=== PATIENT | male | born 1950 | race Hispanic/Latino ===

== ENCOUNTER 2017-02-25 15:19 | Inpatient (IN) | payer MEDICARE, OTHER ==
[2017-02-25 15:19] VITALS: BMI 28.3
[2017-02-25] MEDS ORDERED: Albuterol-Ipratrop 3 mg / 0.5 (3 ml) UD INH STA ×2 (16:00→16:59)
[2017-02-25] MEDS ORDERED: Albuterol-Ipratrop 3 mg / 0.5 (3 ml) UD ONE ×2 (16:06→17:10)
[2017-02-25 16:23] LABS: BASO % 0.2 % (0.0-2.0); EOS % 0.4 % (0.0-4.0); HEMATOCRIT 29.9 % (35.0-51.0); LYMPH # 0.8 K/uL (1.0-4.3); LYMPH % 11.8 % (20.0-40.0); MEAN CELL VOLUME 66.1 fL (80.0-94.0); MEAN CORPUSCULAR HEMOGLOBIN 18.3 pg (27.0-31.0); MEAN CORPUSCULAR HGB CONC 27.7 g/dL (33.0-37.0); MEAN PLATELET VOLUME 7.1 fL (7.2-11.7); MONO # 0.9 K/uL (0.0-0.8); MONO % 14.1 % (0.0-10.0); NRBC % 0.2 % (0.0-2.0); RED CELL DISTRIBUTION WIDTH 19.9 % (11.5-14.5); WHITE BLOOD COUNT 6.5 K/uL (4.8-10.8)
[2017-02-25 16:33] LABS: CHLORIDE 88 mmol/L (98-107)
[2017-02-25 16:36] LABS: ALB/GLOB RATIO 0.9 (1.0-2.1); ALKALINE PHOSPHATASE 155 U/L (38-126); AST/SGOT 83 U/L (17-59); BILIRUBIN,TOTAL 0.8 mg/dL (0.2-1.3); CARBON DIOXIDE 37 mmol/L (22-30); GFR AFRICAN-AMERICAN > 60; TOTAL PROTEIN 7.1 g/dL (6.3-8.3)
[2017-02-25 16:37] LABS: ALT/SGPT 42 U/L (21-72); BLOOD UREA NITROGEN 28 mg/dL (9-20); CALCIUM 7.5 mg/dl (8.6-10.4); GLUCOSE,RANDOM 97 mg/dL (75-110)
[2017-02-25 16:39] LABS: POTASSIUM 3.9 mmol/L (3.6-5.2); SODIUM 138 mmol/L (132-148)
--- NOTE | 2017-02-25 17:00 | RAD ---
HISTORY: SOB COMPARISON: Chest x-ray performed 06/30/12 TECHNIQUE: Chest, one view. FINDINGS: Examination limited by habitus, hypoinflation, and patient obliquity. Right-sided central venous catheter extends to the the cavoatrial junction. Left lower lobe atelectasis or pneumonia. Right hilar opacity of uncertain etiology. Small bilateral pleural effusions. No definite pneumothorax. Please note that chest x-ray has limited sensitivity for the detection of pulmonary masses. Median sternotomy wires. Cardiomegaly. Atherosclerotic calcifications of the aorta. Partially imaged right shoulder arthroplasty. Diffuse osseous demineralization. Degenerative changes of the spine. IMPRESSION: Left lower lobe atelectasis or pneumonia. Right hilar opacity of uncertain etiology. Small bilateral pleural effusions. Cardiomegaly.
--- NOTE | 2017-02-25 17:07 | C.PDOC ---
History Of Present Illness 66 y/o male sent from correction for evaluation of SOB and poor oxygen saturation. 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 Pt history of COPD. Denies fever, chills, chest pain, dizziness, headache or any other complaints. Time Seen by Provider: 02/25/17 15:48 Chief Complaint (Nursing): Shortness Of Breath History Per: Patient History/Exam Limitations: no limitations Onset/Duration Of Symptoms: Hrs Current Symptoms Are (Timing): Better Severity: Mild Associated Symptoms: denies: Fever, Chest Pain, Dizziness Recent travel outside of the [place]: No Additional History Per: Assisted Past Medical History Reviewed: Historical Data, Nursing Documentation, Vital Signs Vital Signs: Last Vital Signs Temp 97.7 F 02/25/17 17:56 Pulse 77 02/25/17 17:56 Resp 18 02/25/17 17:56 BP 120/35 L 02/25/17 15:38 Pulse Ox 100 02/25/17 17:56 - Medical History PMH: Arthritis, Asthma, Diabetes, Emphysema, HIV - [facility] Procedures NEBULIZER THERAPY (11/15/13) Family History: States: Unknown Family Hx - Social History Hx Tobacco Use: Yes Hx Alcohol Use: No (quit 18 yrs ago) Hx Substance Use: No Review Of Systems Except As Marked, All Systems Reviewed And Found Negative. Constitutional: Negative for: Fever, Chills Cardiovascular: Negative for: Chest Pain Respiratory: Positive for: Shortness of Breath Gastrointestinal: Negative for: Vomiting Neurological: Negative for: Headache, Dizziness Physical Exam - Physical Exam Appears: Non-toxic, No Acute Distress, Other (gustafson facies, central obesity and thin extremities consistent with renny syndrome) Skin: Warm, Dry, No Rash Head: Atraumatic, Normacephalic Neck: Normal, Normal ROM, Supple Chest: Symmetrical Cardiovascular: Rhythm Regular, No Murmur Respiratory: No Accessory Muscle Use, No Rales, Rhonchi (scattered), Wheezing ( scattered) Extremity: Normal ROM, Pedal Edema (trace), No Calf Tenderness Pulses: Left Dorsalis Pedis: Normal, Right Dorsalis Pedis: Normal Neurological/Psych: Oriented x3, Normal Speech, Normal Cognition ED Course And Treatment - Laboratory Results Result Diagrams: 02/25/17 16:18 02/25/17 16:18 Lab Interpretation: Abnormal (significant anemia c/w 2014 with microcytic, wide RDW, consider superimposed micro/macrocytic anemias) ECG: Interpreted By Me ECG Rhythm: Sinus Rhythm ECG Interpretation: Normal Rate From EC O2 Sat by Pulse Oximetry: 95 (room air) Pulse Ox Interpretation: Normal - Radiology CXR: Interpreted by Me CXR Interpretation: Yes: No Acute Disease, Heart Size (+ megaly, + mild CHF, no pna) Reevaluation Time: 17:05 Reassessment Condition: Improved (asymptomatic) - Physician Consult Information Outcome Of Conversation: 1700: d/w Dr. Horne, PMD- ok to tele obs Medical Decision Making Medical Decision Making: Cushingoid, prob related to extensive steroids used for COPD microcytic anemia, consider GI source- consult copd: steroids/nebs Disposition Doctor Will See Patient In The: Hospital Counseled Patient/Family Regarding: Studies Performed, Diagnosis - Disposition Disposition: HOSPITALIZED Disposition Time: 17:07 Condition: FAIR - Clinical Impression Clinical Impression: CHF (congestive heart failure), COPD (chronic obstructive pulmonary disease) - Scribe Statement The provider has reviewed the documentation as recorded by the Rose Fox Provider Attestation: All medical record entries made by the Rose were at my direction and personally dictated by me. I have reviewed the chart and agree that the record accurately reflects my personal performance of the history, physical exam, medical decision making, and the department course for this patient. I have also personally directed, reviewed, and agree with the discharge instructions and disposition.
[2017-02-25] MEDS: MethylPREDNISolone 40 mg Vial IVP SCH (22:21)
[2017-02-25] MEDS: Docusate-Senna 50 mg-8.6 mg Tab PO SCH (22:21)
[2017-02-26] MEDS: MethylPREDNISolone 40 mg Vial IVP SCH ×4 (04:20→21:55)
[2017-02-26] MEDS: Albuterol-Ipratrop 3 mg / 0.5 (3 ml) UD IH PRN ×3 (07:55→20:29)
[2017-02-26] MEDS: Multiple Vitamins Tab PO SCH (09:18)
[2017-02-26] MEDS: Emtricitabine-Tenofovir 200 mg-300 mg Tab PO SCH (09:19)
--- NOTE | 2017-02-26 10:28 | CP.PCM.PN ---
Subjective - Date & Time of Evaluation Date of Evaluation: 02/26/17 Time of Evaluation: 09:55 - Subjective Subjective: PGY3 Medicine Note - Dr. Stanley's service: Patient seen and examined at bedside this AM. Patient very sleepy and did not want to talk. He answered only a few questions. Patient reports coughing but will not specify how long. He says it is non-productive. Patient reports chest tightness and wheezing. Patient denies chest pain, abdominal pain, nausea , vomiting. Per prior charts: Patient had critical aortic stenosis on ECHO in 2013. Patient has right humerus fracture repair. Patient was not anemic in 2011. CXR from 2014 shows cardiomegaly. Patient has history of lung cancer treated with radiation into remission per Dr. Stanley. Possible Aortic Valve replacement as patient has sterneotomy sutures on CXR. Objective - Vital Signs/Intake and Output Vital Signs (last 24 hours): Temp Pulse Resp BP Pulse Ox 98 F 73 20 110/62 94 L 02/26/17 07:00 02/26/17 08:45 02/26/17 07:00 02/26/17 09:18 02/26/17 07:00 Intake and Output: 02/26/17 02/26/17 06:59 18:59 Intake Total 120 Balance 120 - Medications Medications: Current Medications Acetaminophen (Tylenol 325mg Tab) 650 mg PO Q4H PRN PRN Reason: Fever >100.4 F Albuterol/Ipratropium (Duoneb 3 Mg/0.5 Mg (3 Ml) Ud) 3 ml IH RQ4 PRN PRN Reason: Wheezing Last Admin: 02/26/17 07:55 Dose: 3 ml Emtricitabine/Tenofovir (Truvada 200 Mg-300 Mg) 1 tab PO DAILY [facility] Last Admin: 02/26/17 09:19 Dose: 1 tab Famotidine (Pepcid) 20 mg PO DAILY [facility] Last Admin: 02/26/17 09:18 Dose: 20 mg Furosemide (Lasix) 20 mg PO DAILY [facility] Last Admin: 02/26/17 09:18 Dose: 20 mg Moxifloxacin HCl (Avelox Iv 400mg/250ml Ns) 400 mg in 250 mls @ 167 mls/hr IVPB Q24H [facility] Methylprednisolone (Solu-Medrol) 40 mg IVP Q6H [facility] Last Admin: 02/26/17 09:21 Dose: 40 mg Metoprolol Tartrate (Lopressor) 25 mg PO BID REPLACED BY [facility] Montelukast Sodium (Singulair) 10 mg PO DAILY REPLACED BY [facility] Last Admin: 02/26/17 09:18 Dose: 10 mg Multivitamins (Hexavitamin) 1 tab PO DAILY [facility]PLAC[facility] BY [facility] Last Admin: 02/26/17 09:18 Dose: 1 tab Ondansetron HCl (Zofran Tab) 4 mg PO Q4H PRN PRN Reason: Nausea/Vomiting Raltegravir (Isentress) 400 mg PO BID REPLACED BY [facility] Last Admin: 02/26/17 09:19 Dose: 400 mg Rosuvastatin Calcium (Crestor) 20 mg PO [facility] Last Admin: 02/25/17 22:20 Dose: 20 mg Senna/Docusate Sodium (Senokot S 50 Mg-8.6 Mg) 1 tab PO [facility] Last Admin: 02/25/17 22:21 Dose: 1 tab - Constitutional Appears: Non-toxic, No Acute Distress, Chronically Ill - Head Exam Head Exam: NORMAL INSPECTION - Eye Exam Eye Exam: EOMI - ENT Exam ENT Exam: Mucous Membranes Moist - Respiratory Exam Respiratory Exam: Rales, Rhonchi. absent: Accessory Muscle Use, Decreased Breath Sounds, Respiratory Distress - Cardiovascular Exam Cardiovascular Exam: REGULAR RHYTHM, +S1, +S2. absent: Gallop, Rubs, Murmur - GI/Abdominal Exam GI & Abdominal Exam: Soft, Normal Bowel Sounds. absent: Tenderness - Extremities Exam Extremities Exam: Pedal Edema (1+ pitting) - Neurological Exam Neurological Exam: absent: Alert, Awake - Skin Skin Exam: Normal Color, Warm Assessment and Plan - Assessment and Plan (Free Text) Assessment: Dyspnea Secondary to COPD v. CHF v. Lung CA v. Pneumonia CXR 02/25/17 -> left lower lobe atelectasis or pneumonia; right hilar opacity; small b/l pleural effusions; cardiomegaly BNP 9850 Afebrile, WBC 6.5 F/U CT scan to assess pneumonia and if the opacity is a mass F/U ECHO Avelox 400mg IVPB daily See COPD section for COPD meds Microcytic Anemia Hgb 8.3 (from 12.6 in 2013), MCV 66.1 Secondary to chronic disease v. iron deficiency Transfuse 1 unit pRBCs F/U CBC in AM F/U iron, TIBC, %iron sat, ferritin, retic count, folate, B12 F/U stool occult blood [facility] BiPAP ordered per Dr. Stanley History of COPD with possible exacerbation Duoneb 3ml INH RQ4 PRN wheezing Solu-Medrol 40mg IVP Q6H Singulair 10mg PO daily History of HIV Truvada 1 tab PO daily (home med) Isentress 400mg PO BID (home med) F/U CD4 count History of critical aortic stenosis F/U ECHO Lopressor 25mg PO BID Crestor 20mg PO HS Prophylaxis Sennakot 1 tab PO HS Pepcid 20mg PO daily Lovenox 40mg SC daily All management per Dr. Stanley
[2017-02-26] MEDS: Moxifloxacin IV 400mg/250ml NS 400 MG/250 ML BAG IVPB SCH (14:28)
--- NOTE | 2017-02-26 14:56 | CT ---
CT chest without IV contrast Indication: Possible lung cancer recurrence, possible pneumonia Technique: Contiguous axial images were obtained through the chest without intravenous contrast enhancement. Sagittal and coronal reconstructions were generated and reviewed. This CT exam was performed using 1 or more of the falling dose reduction techniques: Automated exposure control, adjustment of the MAA and/or kV according to patient size, and/or use of iterative reconstruction technique. Radiation dose (DLP): 798.24 MGy-cm. Comparison: Chest x-ray performed 02/25/17 Findings: Right-sided central venous catheter terminates at the proximal right atrium. Visualized portions of the inferior thyroid gland appear unremarkable. The unenhanced mediastinal and hilar vascular structures appear grossly unremarkable. Median sternotomy wires. Heart size appears top normal. Dense coronary artery calcifications. Dense valvular calcifications. Moderate right-sided and small left-sided pleural effusion and associated consolidations. Lingular consolidation. Limited visualization of the noncontrast upper abdomen demonstrates cholecystectomy. Postsurgical gastric changes evident. Osseous demineralization. Degenerative changes. Kyphosis. Right shoulder arthroplasty with resultant streak artifact. Loss of height of multiple vertebral body levels, most severely at T6 consistent with compression fracture deformity, presumably chronic. Impression: Right-sided central venous catheter. Median sternotomy wires. Heart size appears top normal. Dense coronary artery calcifications. Dense valvular calcifications. Moderate right-sided and small left-sided pleural effusion and associated consolidations. Lingular consolidation. Underlying malignancy cannot be excluded. Recommend clinical correlation and close interval follow-up to complete resolution. Additional findings as above.
[2017-02-26 17:21] LABS: IRON 20 ug/dL (49-181)
[2017-02-26 17:46] LABS: HEMATOCRIT 26.8 % (35.0-51.0); MEAN CELL VOLUME 66.5 fL (80.0-94.0); MEAN CORPUSCULAR HEMOGLOBIN 18.2 pg (27.0-31.0); MEAN CORPUSCULAR HGB CONC 27.4 g/dL (33.0-37.0); MEAN PLATELET VOLUME 7.2 fL (7.2-11.7); RED CELL DISTRIBUTION WIDTH 19.1 % (11.5-14.5); WHITE BLOOD COUNT 9.7 K/uL (4.8-10.8)
[2017-02-26] MEDS: Docusate-Senna 50 mg-8.6 mg Tab PO SCH (21:51)
[2017-02-27] MEDS: Albuterol-Ipratrop 3 mg / 0.5 (3 ml) UD IH PRN (07:57)
--- NOTE | 2017-02-27 09:02 | CARD ---
APPROVED REPORT EKG Measurement Heart [id number] <Conclusion> Normal sinus rhythm Low voltage QRS Cannot rule out Anterior infarct, age undetermined T wave abnormality, consider lateral ischemia Abnormal ECG
--- NOTE | 2017-02-27 10:02 | CP.PCM.PN ---
Subjective - Date & Time of Evaluation Date of Evaluation: 02/27/17 Time of Evaluation: 10:02 - Subjective Subjective: Medicine Note- Dr Stanley's service Patient seen and examined. Patient states that he feels much better today and denies chest pain or back pain. Patient was using BIPAP machine overnight and states that he was able to sleep well last night. Patient would like to go back to his facility. He received 1u pRBCs overnight with no complications. Denies fever, chills, nausea, vomiting, shortness of breath, and pain. Objective - Vital Signs/Intake and Output Vital Signs (last 24 hours): Temp Pulse Resp BP Pulse Ox 98.0 F 71 20 108/63 97 02/27/17 08:00 02/27/17 08:17 02/27/17 08:00 02/27/17 08:00 02/27/17 08:00 Intake and Output: 02/27/17 02/27/17 06:59 18:59 Intake Total 1310 Output Total 400 Balance 910 - Medications Medications: Current Medications Acetaminophen (Tylenol 325mg Tab) 650 mg PO Q4H PRN PRN Reason: Fever >100.4 F Albuterol/Ipratropium (Duoneb 3 Mg/0.5 Mg (3 Ml) Ud) 3 ml IH RQ4 PRN PRN Reason: Wheezing Last Admin: 02/27/17 07:57 Dose: 3 ml Emtricitabine/Tenofovir (Truvada 200 Mg-300 Mg) 1 tab PO DAILY [facility] Last Admin: 02/26/17 09:19 Dose: 1 tab Enoxaparin Sodium (Lovenox) 40 mg SC DAILY [facility] Famotidine (Pepcid) 20 mg PO DAILY [facility] Last Admin: 02/26/17 09:18 Dose: 20 mg Ferrous Sulfate (Feosol) 325 mg PO DAILY [facility] Furosemide (Lasix) 20 mg PO DAILY [facility] Last Admin: 02/26/17 09:18 Dose: 20 mg Moxifloxacin HCl (Avelox Iv 400mg/250ml Ns) 400 mg in 250 mls @ 167 mls/hr IVPB Q24H [facility] Last Admin: 02/26/17 14:28 Dose: 167 mls/hr Methylprednisolone (Solu-Medrol) 40 mg IVP Q6H [facility] Last Admin: 02/26/17 21:55 Dose: 40 mg Metoprolol Tartrate (Lopressor) 25 mg PO BID [facility] Last Admin: 02/26/17 17:53 Dose: 25 mg Montelukast Sodium (Singulair) 10 mg PO DAILY [facility] Last Admin: 02/26/17 09:18 Dose: 10 mg Multivitamins (Hexavitamin) 1 tab PO DAILY [facility] Last Admin: 02/26/17 09:18 Dose: 1 tab Ondansetron HCl (Zofran Tab) 4 mg PO Q4H PRN PRN Reason: Nausea/Vomiting Raltegravir (Isentress) 400 mg PO BID [facility] Last Admin: 02/26/17 17:52 Dose: 400 mg Rosuvastatin Calcium (Crestor) 20 mg PO HS [facility] Last Admin: 02/26/17 21:52 Dose: 20 mg Senna/Docusate Sodium (Senokot S 50 Mg-8.6 Mg) 1 tab PO HS [facility] Last Admin: 02/26/17 21:51 Dose: 1 tab - Labs Labs: 02/26/17 16:50 - Additional Findings Additional findings: - Constitutional Appears: Non-toxic, No Acute Distress, Chronically Ill - Head Exam Head Exam: NORMAL INSPECTION - Eye Exam Eye Exam: EOMI - ENT Exam ENT Exam: Mucous Membranes Moist - Respiratory Exam Respiratory Exam: Rales, Rhonchi. absent: Accessory Muscle Use, Decreased Breath Sounds, Respiratory Distress - Cardiovascular Exam Cardiovascular Exam: REGULAR RHYTHM, +S1, +S2. absent: Gallop, Rubs, Murmur - GI/Abdominal Exam GI & Abdominal Exam: Soft, Normal Bowel Sounds. absent: Tenderness - Extremities Exam Extremities Exam: Pedal Edema (1+ pitting) - Neurological Exam Neurological Exam: absent: Alert, Awake - Skin Skin Exam: Normal Color, Warm Assessment and Plan - Assessment and Plan (Free Text) Assessment: Dyspnea Improved Secondary to COPD v. CHF v. Lung CA v. Pneumonia CXR 02/25/17 -> left lower lobe atelectasis or pneumonia; right hilar opacity; small b/l pleural effusions; cardiomegaly BNP 9850 Afebrile, no leukocytosis CT Chest- Moderate right-sided and small left-sided pleural effusion and associated consolidations. Lingular consolidation. Underlying malignancy cannot be excluded. F/U ECHO Avelox 400mg IVPB daily Lasix 20mg PO daily See COPD section for COPD meds Microcytic Anemia Hgb 7.3 yesterday, MCV 66.1 Secondary to chronic disease v. iron deficiency s/p transfusion of 1 unit pRBCs on 02/26 Hgb 8.4 this morning Iron 20 (low), TIBC 397, % sat 5 stool occult blood negative Start Feosol 325mg PO daily Obstructive Sleep Apnea BiPAP ordered for night time use History of COPD with possible exacerbation Duoneb 3ml INH RQ4 PRN wheezing Solu-Medrol 40mg IVP Q6H Singulair 10mg PO daily History of HIV Truvada 1 tab PO daily (home med) Isentress 400mg PO BID (home med) F/U CD4 count History of critical aortic stenosis F/U ECHO Lopressor 25mg PO BID Crestor 20mg PO HS Prophylaxis Sennakot 1 tab PO HS Pepcid 20mg PO daily Lovenox 40mg SC daily All management per Dr. Stanley
[2017-02-27] MEDS: Multiple Vitamins Tab PO SCH (10:21)
[2017-02-27] MEDS: MethylPREDNISolone 40 mg Vial IVP SCH ×3 (10:22→21:30)
[2017-02-27] MEDS: Enoxaparin 40 mg Syringe SC SCH (10:23)
[2017-02-27] MEDS: Emtricitabine-Tenofovir 200 mg-300 mg Tab PO SCH (10:24)
[2017-02-27 11:21] LABS: LYMPH # 0.1 K/uL (1.0-4.3); LYMPH % 1.5 % (20.0-40.0); MONO # 0.2 K/uL (0.0-0.8); NRBC % 0.5 % (0.0-2.0); RETIC% 1.6 % (0.5-1.5); WHITE BLOOD COUNT 7.8 K/uL (4.8-10.8)
[2017-02-27 11:29] LABS: CHLORIDE 85 mmol/L (98-107)
[2017-02-27 11:30] LABS: POTASSIUM 3.6 mmol/L (3.6-5.2); SODIUM 137 mmol/L (132-148)
[2017-02-27 11:32] LABS: GFR AFRICAN-AMERICAN > 60
[2017-02-27 11:33] LABS: ALB/GLOB RATIO 0.9 (1.0-2.1); ALKALINE PHOSPHATASE 135 U/L (38-126); ALT/SGPT 34 U/L (21-72); AST/SGOT 49 U/L (17-59); BILIRUBIN,TOTAL 0.8 mg/dL (0.2-1.3); BLOOD UREA NITROGEN 30 mg/dL (9-20); CALCIUM 7.3 mg/dl (8.6-10.4); GLUCOSE,RANDOM 244 mg/dL (75-110); TOTAL PROTEIN 6.3 g/dL (6.3-8.3)
[2017-02-27 12:00] LABS: BASO % 0.1 % (0.0-2.0); HEMATOCRIT 29.7 % (35.0-51.0); MEAN CORPUSCULAR HEMOGLOBIN 19.3 pg (27.0-31.0); MEAN CORPUSCULAR HGB CONC 28.4 g/dL (33.0-37.0); MEAN PLATELET VOLUME 8.5 fL (7.2-11.7); MONO % 2.4 % (0.0-10.0); PLATELET COUNT 234 K/uL (130-400)
[2017-02-27 12:16] LABS: CARBON DIOXIDE 42 mmol/L (22-30)
[2017-02-27] MEDS: Moxifloxacin IV 400mg/250ml NS 400 MG/250 ML BAG IVPB SCH (12:20)
[2017-02-27 12:26] LABS: NEUTROPHIL 95 % (50-75); TOTAL CELLS COUNTED 100
[2017-02-27 14:38] LABS: ABG ALLEN TEST PO; CARBOXYHEMOGLOBIN 2.3 % (0.5-1.5); DRAW SITE RRA; HHB 13.8 % (0.0-5.0); METHEMOGLOBIN 0.9 % (0.0-3.0)
[2017-02-27] MEDS: Docusate-Senna 50 mg-8.6 mg Tab PO SCH (21:31)
[2017-02-28] MEDS: MethylPREDNISolone 40 mg Vial IVP SCH ×4 (03:55→21:45)
[2017-02-28] MEDS: Emtricitabine-Tenofovir 200 mg-300 mg Tab PO SCH (10:40)
[2017-02-28] MEDS: Multiple Vitamins Tab PO SCH (10:41)
[2017-02-28] MEDS: Enoxaparin 40 mg Syringe SC SCH (10:41)
--- NOTE | 2017-02-28 11:17 | CP.PCM.PN ---
Subjective - Date & Time of Evaluation Date of Evaluation: 02/28/17 Time of Evaluation: 11:17 - Subjective Subjective: Medicine Note- Dr Stanley's service Patient seen and examined with attending Dr Stanley. Patient states that he feels fine today and that his breathing has improved. Patient is tolerating his diet well. The patient was cleaned yesterday and no bed bugs were found. May remove patient from isolation precautions at this time. Patient denies fever, chills, nausea, vomiting, diarrhea, abdominal pain, leg pain, chest pain , and palpitations. Objective - Vital Signs/Intake and Output Vital Signs (last 24 hours): Temp Pulse Resp BP Pulse Ox 97.6 F 64 20 99/63 L 100 02/28/17 07:55 02/28/17 10:38 02/28/17 07:55 02/28/17 10:47 02/28/17 07:55 Intake and Output: 02/28/17 02/28/17 06:59 18:59 Intake Total 820 Output Total 950 Balance -130 - Medications Medications: Current Medications Acetaminophen (Tylenol 325mg Tab) 650 mg PO Q4H PRN PRN Reason: Fever >100.4 F Albuterol/Ipratropium (Duoneb 3 Mg/0.5 Mg (3 Ml) Ud) 3 ml IH RQ4 PRN PRN Reason: Wheezing Last Admin: 02/27/17 07:57 Dose: 3 ml Emtricitabine/Tenofovir (Truvada 200 Mg-300 Mg) 1 tab PO DAILY [facility] Last Admin: 02/28/17 10:40 Dose: 1 tab Enoxaparin Sodium (Lovenox) 40 mg SC DAILY [facility] Last Admin: 02/28/17 10:41 Dose: 40 mg Famotidine (Pepcid) 20 mg PO DAILY [facility] Last Admin: 02/28/17 10:41 Dose: 20 mg Ferrous Sulfate (Feosol) 325 mg PO DAILY [facility] Last Admin: 02/28/17 10:41 Dose: 325 mg Furosemide (Lasix) 20 mg PO DAILY [facility] Last Admin: 02/28/17 10:47 Dose: Not Given Moxifloxacin HCl (Avelox Iv 400mg/250ml Ns) 400 mg in 250 mls @ 167 mls/hr IVPB Q24H [facility] Last Admin: 02/27/17 12:20 Dose: 167 mls/hr Methylprednisolone (Solu-Medrol) 40 mg IVP Q6H [facility] Last Admin: 02/28/17 10:42 Dose: 40 mg Metoprolol Tartrate (Lopressor) 25 mg PO BID [facility] Last Admin: 02/28/17 10:47 Dose: Not Given Montelukast Sodium (Singulair) 10 mg PO DAILY [facility] Last Admin: 02/28/17 10:46 Dose: 10 mg Multivitamins (Hexavitamin) 1 tab PO DAILY [facility] Last Admin: 02/28/17 10:41 Dose: 1 tab Ondansetron HCl (Zofran Tab) 4 mg PO Q4H PRN PRN Reason: Nausea/Vomiting Raltegravir (Isentress) 400 mg PO BID [facility] Last Admin: 02/28/17 10:42 Dose: 400 mg Rosuvastatin Calcium (Crestor) 20 mg PO HS [facility] Last Admin: 02/27/17 21:31 Dose: 20 mg Senna/Docusate Sodium (Senokot S 50 Mg-8.6 Mg) 1 tab PO [facility] Last Admin: 02/27/17 21:31 Dose: 1 tab - Additional Findings Additional findings: - Additional Findings Additional findings: - Constitutional Appears: Non-toxic, No Acute Distress, Chronically Ill - Head Exam Head Exam: NORMAL INSPECTION - Eye Exam Eye Exam: EOMI - ENT Exam ENT Exam: Mucous Membranes Moist - Respiratory Exam Respiratory Exam: Rales, Rhonchi. absent: Accessory Muscle Use, Decreased Breath Sounds, Respiratory Distress - Cardiovascular Exam Cardiovascular Exam: REGULAR RHYTHM, +S1, +S2. absent: Gallop, Rubs, Murmur - GI/Abdominal Exam GI & Abdominal Exam: Soft, Normal Bowel Sounds. absent: Tenderness - Extremities Exam Extremities Exam: Pedal Edema (1+ pitting) - Neurological Exam Neurological Exam: absent: Alert, Awake - Skin Skin Exam: Normal Color, Warm Assessment and Plan - Assessment and Plan (Free Text) Assessment: Dyspnea Improved Secondary to COPD v. CHF v. Lung CA v. Pneumonia ABG pH 7.4/ CO2 72/ O2 42/ HCO3 38.5 (Patient qualifies for home O2 with BIPAP) CXR 02/25/17 -> left lower lobe atelectasis or pneumonia; right hilar opacity; small b/l pleural effusions; cardiomegaly BNP 9850 Afebrile, no leukocytosis CT Chest- Moderate right-sided and small left-sided pleural effusion and associated consolidations. Lingular consolidation. Underlying malignancy cannot be excluded. F/U ECHO Avelox 400mg IVPB daily Lasix 20mg PO daily See COPD section for COPD meds Microcytic Anemia Secondary to chronic disease v. iron deficiency s/p transfusion of 1 unit pRBCs on 02/26 Hgb stable Iron 20 (low), TIBC 397, % sat 5 stool occult blood negative Start Feosol 325mg PO daily Obstructive Sleep Apnea BiPAP ordered for night time use- [facility] with [facility] History of COPD Well controlled with O2 nasal cannula and BIPAP Duoneb 3ml INH RQ4 PRN wheezing Solu-Medrol 40mg IVP Q6H Singulair 10mg PO daily History of HIV Truvada 1 tab PO daily (home med) Isentress 400mg PO BID (home med) F/U CD4 count History of critical aortic stenosis F/U ECHO Lopressor 25mg PO BID Crestor 20mg PO HS Prophylaxis Sennakot 1 tab PO HS Pepcid 20mg PO daily Lovenox 40mg SC daily All management per Dr. Stanley
[2017-02-28 11:51] LABS: BASO % 0.1 % (0.0-2.0); LYMPH # 0.2 K/uL (1.0-4.3); LYMPH % 2.1 % (20.0-40.0); MEAN CELL VOLUME 68.7 fL (80.0-94.0); MEAN CORPUSCULAR HEMOGLOBIN 19.3 pg (27.0-31.0); MEAN PLATELET VOLUME 7.3 fL (7.2-11.7); MONO # 0.2 K/uL (0.0-0.8); MONO % 2.9 % (0.0-10.0); NRBC % 0.6 % (0.0-2.0); PLATELET COUNT 235 K/uL (130-400); RED CELL DISTRIBUTION WIDTH 21.3 % (11.5-14.5); WHITE BLOOD COUNT 8.5 K/uL (4.8-10.8)
[2017-02-28 12:18] LABS: NEUTROPHIL 94 % (50-75); NUCLEATED RED BLOOD CELL 1 % (0-0); TOTAL CELLS COUNTED 100
[2017-02-28 12:19] LABS: CHLORIDE 84 mmol/L (98-107)
[2017-02-28 12:20] LABS: POTASSIUM 3.5 mmol/L (3.6-5.2); SODIUM 137 mmol/L (132-148)
[2017-02-28] MEDS: Moxifloxacin IV 400mg/250ml NS 400 MG/250 ML BAG IVPB SCH (12:20)
[2017-02-28 12:22] LABS: ALB/GLOB RATIO 0.9 (1.0-2.1); ALKALINE PHOSPHATASE 126 U/L (38-126); ALT/SGPT 38 U/L (21-72); AST/SGOT 49 U/L (17-59); BILIRUBIN,TOTAL 0.7 mg/dL (0.2-1.3); BLOOD UREA NITROGEN 37 mg/dL (9-20); GFR AFRICAN-AMERICAN > 60; GLUCOSE,RANDOM 237 mg/dL (75-110); TOTAL PROTEIN 6.2 g/dL (6.3-8.3)
[2017-02-28 12:23] LABS: CALCIUM 7.3 mg/dl (8.6-10.4)
[2017-02-28 12:38] LABS: CARBON DIOXIDE 43 mmol/L (22-30)
--- NOTE | 2017-02-28 15:23 | PCM.PSYCH ---
Initial Psychiatric Evaluation - Initial Psychiatric Evaluation Type of Admission: Voluntary Legal Status: Capacity Chief Complaint (in patient's own words): Whats not wrong with me Consult request from Dr. Stanley. History of Present Illness and Precipitating Events: Patient is seen and evaluated at bedside with medical student present. Patient is a poor historian. This patient is a 66 year old male, , on disability for 20 years ( previously worked in [employer]), currently lives alone in [place] ( per ER note, pt lives in [facility]). Patient is admitted to medicine service for COPD exacerbation. Patient states that his mood is 50/50 and that he keeps it that way. Reports that a few years ago while at work, he said Id rather be than keep working here. Patient states that the police were called and he was taken to the hospital. Patient left because he didnt think anything was wrong with him and they were giving him medications and couldnt tell him what they were for. Patient reports he told the psychiatrist at that hospital, go look at any psychology book and it says 9 out of 10 people are depressed. Patient reports difficulty sleeping and became visibly agitated as he recounted interruptions by nursing that led to his limited sleep. When asked about paranoia, patient responded, I dont care if people talk about me and continued on a tangent. Patient reports hearing voices and seeing shadows on first day of this admission, none since. Patient requests help with his sleep and mood, only if theyll explain what theyre giving me. Past MedHx: COPD, HTN, DM, Anemia, (HIV - per pt chart) Past PsycHx: They said I was depressed years ago. Denies receiving treatment or medication. Substance Use: Cannabis loads of it, Crack (route: snort), Heroin (route snort) Rehab 2x In [facility] denies; states I dont need help, there are people who need help and can t get it. Alcohol: 2-3 quarts of Hilario Greene daily (quit drinking 10 years ago) Tobacco: 6 ppd (quit) Patient is an obese male, unkempt, and has visible bruising and tattoos on his arms. Patients speech is soft , often garbled and circumstantial. Patient had difficulty maintaining focus and questions would need to be repeated. Current Medications: Active Medications Generic Name Dose Route Start Last Admin Trade Name Freq PRN Reason Stop Dose Admin Acetaminophen 650 mg 02/25/17 18:38 Tylenol 325mg Tab PO Q4H PRN Fever >100.4 F Albuterol/Ipratropium 3 ml 02/25/17 18:38 02/27/17 07:57 Duoneb 3 Mg/0.5 Mg (3 Ml) Ud IH 3 ml RQ4 PRN Administration Wheezing Emtricitabine/Tenofovir 1 tab 02/26/17 10:00 02/28/17 10:40 Truvada 200 Mg-300 Mg PO 1 tab DAILY [facility] Administration Enoxaparin Sodium 40 mg 02/26/17 10:30 02/28/17 10:41 Lovenox SC 40 mg DAILY [facility] Administration Famotidine 20 mg 02/26/17 10:00 02/28/17 10:41 Pepcid PO 20 mg DAILY [facility] Administration Ferrous Sulfate 325 mg 02/27/17 10:00 02/28/17 10:41 Feosol PO 325 mg DAILY [facility] Administration Furosemide 20 mg 02/26/17 10:00 02/28/17 10:47 Lasix PO Not Given DAILY [facility] Moxifloxacin HCl 400 mg in 250 mls @ 167 mls/hr 02/26/17 12:00 02/28/17 12:20 Avelox Iv 400mg/250ml Ns IVPB 167 mls/hr Q24H [facility] Administration Methylprednisolone 40 mg 02/25/17 22:00 02/28/17 10:42 Solu-Medrol IVP 40 mg Q6H [facility] Administration Metoprolol Tartrate 25 mg 02/26/17 10:00 02/28/17 10:47 Lopressor PO Not Given BID [facility] Montelukast Sodium 10 mg 02/26/17 10:00 02/28/17 10:46 Singulair PO 10 mg DAILY [facility] Administration Multivitamins 1 tab 02/26/17 10:00 02/28/17 10:41 Hexavitamin PO 1 tab DAILY [facility] Administration Ondansetron HCl 4 mg 02/25/17 19:15 Zofran Tab PO Q4H PRN Nausea/Vomiting Raltegravir 400 mg 02/26/17 10:00 02/28/17 10:42 Isentress PO 400 mg BID [facility] Administration Rosuvastatin Calcium 20 mg 02/25/17 22:15 02/27/17 21:31 Crestor PO 20 mg HS [facility] Administration Senna/Docusate Sodium 1 tab 02/25/17 22:00 02/27/17 21:31 Senokot S 50 Mg-8.6 Mg PO 1 tab HS [facility] Administration Past Psychiatric History - Past Psychiatric History Previous Treatment History: None Pertinent Medical Hx (Current Medical&Sleep Prob, Allergies): Allergies Allergy/AdvReac Type Severity Reaction Status Date / Time No Known Allergies Allergy Verified 11/15/13 21:43 Acetaminophen [Tylenol 325mg tab] 650 mg PO Q4H PRN 02/25/17 Albuterol/Ipratropium [Duoneb 3 MG/3 Ml-0.5 MG/3 Ml 3 Ml] 3 ml IH Q4H PRN Budesonide/Formoterol Fumarate [Symbicort] 2 puff IH BID 02/25/17 Emtricitabine/Tenofovir (Tdf) [Truvada 200 mg-300 mg Tablet] 1 each PO DAILY Famotidine 20 mg PO DAILY 02/25/17 Furosemide [Lasix] 20 mg PO DAILY 02/25/17 Metoprolol Tartrate 25 mg PO BID 02/25/17 Montelukast Sodium [Singulair] 10 mg PO DAILY 02/25/17 Multivitamin [Multi-Day Vitamins] 1 each PO DAILY 02/25/17 Ondansetron [Zofran] 4 mg PO PRN PRN 02/25/17 Raltegravir Potassium [Isentress] 400 mg PO BID 02/25/17 Rosuvastatin Calcium 20 mg PO DAILY 02/25/17 Sennosides/Docusate Sodium [Senna-S Tablet] 1 each PO HS 02/25/17 Review of Systems - Review of Systems All systems: reviewed and no additional remarkable complaints except - Psychiatric Psychiatric: Anxiety, Auditory Hallucinations, Irritability, Paranoia, Visual Hallucinations Mental Status Examination - Personal Presentation Personal Presentation: Looks stated age - Affect Affect: Broad, Other (labile) - Motor Activity Motor Activity: Psychomotor Agitation - Reliability in Providing Information Reliability in Providing Information: Poor, due to alteration in thoughts, Poor , due to altered mood - Speech Speech: Disorganized - Mood Mood: Depressed, Anxious - Formal Thought Process Formal Thought Process: Hallucinations, Delusions, Paranoia, Loosening of associations, Circumstantial - Hallucinations/Delusions Hallucinations: Visual, Auditory Delusions: Persecution - Obsessions/Compulsions Obsessions: No Compulsions: No - Cognitive Functions Orientation: Person, Place, Situation, Time Sensorium: Alert Attention/Concentration: Attentive Abstract Thinking: [place] Estimate of Intelligence: Below average Judgement: Imparied, as evidence by: Poor judgement, Imparied, as evidence by: Lack of insight into illness - Risk Risk: Diminished functioning - Limitations Limitations: Living alone DSM 5 DX - DSM 5 DSM 5 Diagnosis: Cocaine use disorder severe Cannabis use disorder severe Major depressive disorder with psychosis Schizoaffective disorder depressive type - Recommended/Plan of Treatment Treatment Recommendations and Plan of Treatment: Cocaine use disorder severe Cannabis use disorder severe Major depressive disorder with psychosis Schizoaffective disorder depressive type CBT Psychoeducation Supportive therapy, group therapy, individual therapy Prolixin 5 mg by mouth twice a day Cogentin 1 mg by mouth twice a day Zoloft 50 mg daily Trazodone 50 mg by mouth daily at bedtime - Smoking Cessation Smoking Cessation Initiated: No
[2017-02-28] MEDS: Docusate-Senna 50 mg-8.6 mg Tab PO SCH (21:43)
[2017-03-01] MEDS: MethylPREDNISolone 40 mg Vial IVP SCH ×4 (05:44→21:57)
[2017-03-01 08:31] LABS: % CD3 (MATURE T CELL) 55 Percent (57-85)
--- NOTE | 2017-03-01 09:06 | CP.PCM.PN ---
Subjective - Date & Time of Evaluation Date of Evaluation: 03/01/17 Time of Evaluation: 08:00 - Subjective Subjective: Medical Note- Dr Stanley's service Patient seen and examined. Patient has no acute complaints. He has been removed off isolation precautions. Patient is pending ECHO at this time. If ECHO resulted patient may be discharged today. Denies fever, chills, nausea, vomiting, chest pain, and headache. Objective - Vital Signs/Intake and Output Vital Signs (last 24 hours): Temp Pulse Resp BP Pulse Ox 98.0 F 72 20 132/68 98 02/28/17 23:25 03/01/17 08:37 02/28/17 23:25 02/28/17 23:25 02/28/17 23:25 Intake and Output: 03/01/17 03/01/17 06:59 18:59 Intake Total 730 Output Total 400 Balance 330 - Medications Medications: Current Medications Acetaminophen (Tylenol 325mg Tab) 650 mg PO Q4H PRN PRN Reason: Fever >100.4 F Albuterol/Ipratropium (Duoneb 3 Mg/0.5 Mg (3 Ml) Ud) 3 ml IH RQ4 PRN PRN Reason: Wheezing Last Admin: 02/27/17 07:57 Dose: 3 ml Emtricitabine/Tenofovir (Truvada 200 Mg-300 Mg) 1 tab PO DAILY [facility] Last Admin: 02/28/17 10:40 Dose: 1 tab Enoxaparin Sodium (Lovenox) 40 mg SC DAILY [facility] Last Admin: 02/28/17 10:41 Dose: 40 mg Famotidine (Pepcid) 20 mg PO DAILY [facility] Last Admin: 02/28/17 10:41 Dose: 20 mg Ferrous Sulfate (Feosol) 325 mg PO DAILY [facility] Last Admin: 02/28/17 10:41 Dose: 325 mg Furosemide (Lasix) 20 mg PO DAILY [facility] Last Admin: 02/28/17 10:47 Dose: Not Given Moxifloxacin HCl (Avelox Iv 400mg/250ml Ns) 400 mg in 250 mls @ 167 mls/hr IVPB Q24H [facility] Last Admin: 02/28/17 12:20 Dose: 167 mls/hr Methylprednisolone (Solu-Medrol) 40 mg IVP Q6H [facility] Last Admin: 03/01/17 05:44 Dose: 40 mg Metoprolol Tartrate (Lopressor) 25 mg PO BID [facility] Last Admin: 02/28/17 17:53 Dose: Not Given Montelukast Sodium (Singulair) 10 mg PO DAILY [facility] Last Admin: 02/28/17 10:46 Dose: 10 mg Multivitamins (Hexavitamin) 1 tab PO DAILY [facility] Last Admin: 02/28/17 10:41 Dose: 1 tab Ondansetron HCl (Zofran Tab) 4 mg PO Q4H PRN PRN Reason: Nausea/Vomiting Raltegravir (Isentress) 400 mg PO BID [facility] Last Admin: 02/28/17 17:52 Dose: 400 mg Rosuvastatin Calcium (Crestor) 20 mg PO HS [facility] Last Admin: 02/28/17 21:43 Dose: 20 mg Senna/Docusate Sodium (Senokot S 50 Mg-8.6 Mg) 1 tab PO HS [facility] Last Admin: 02/28/17 21:43 Dose: 1 tab - Labs Labs: 02/28/17 11:44 02/28/17 11:44 - Additional Findings Additional findings: - Additional Findings Additional findings: - Constitutional Appears: Non-toxic, No Acute Distress, Chronically Ill - Head Exam Head Exam: NORMAL INSPECTION - Eye Exam Eye Exam: EOMI - ENT Exam ENT Exam: Mucous Membranes Moist - Respiratory Exam Respiratory Exam: Rales, Rhonchi. absent: Accessory Muscle Use, Decreased Breath Sounds, Respiratory Distress - Cardiovascular Exam Cardiovascular Exam: REGULAR RHYTHM, +S1, +S2. absent: Gallop, Rubs, Murmur - GI/Abdominal Exam GI & Abdominal Exam: Soft, Normal Bowel Sounds. absent: Tenderness - Extremities Exam Extremities Exam: Pedal Edema (1+ pitting) - Neurological Exam Neurological Exam: absent: Alert, Awake - Skin Skin Exam: Normal Color, Warm Assessment and Plan - Assessment and Plan (Free Text) Assessment: Dyspnea Improved Secondary to COPD v. CHF v. Lung CA v. Pneumonia ABG pH 7.4/ CO2 72/ O2 42/ HCO3 38.5 (Patient qualifies for home O2 with BIPAP) CXR 02/25/17 -> left lower lobe atelectasis or pneumonia; right hilar opacity; small b/l pleural effusions; cardiomegaly BNP 9850 Afebrile, no leukocytosis CT Chest- Moderate right-sided and small left-sided pleural effusion and associated consolidations. Lingular consolidation. Underlying malignancy cannot be excluded. F/U ECHO Avelox 400mg IVPB daily Lasix 20mg PO daily See COPD section for COPD meds Microcytic Anemia Secondary to chronic disease v. iron deficiency s/p transfusion of 1 unit pRBCs on 02/26 Hgb stable Iron 20 (low), TIBC 397, % sat 5 stool occult blood negative Start Feosol 325mg PO daily Obstructive Sleep Apnea BiPAP ordered for night time use- patient should go to detention with BIPAP History of COPD Well controlled with O2 nasal cannula and BIPAP Duoneb 3ml INH RQ4 PRN wheezing Solu-Medrol 40mg IVP Q6H Singulair 10mg PO daily History of HIV Truvada 1 tab PO daily (home med) Isentress 400mg PO BID (home med) F/U CD4 count History of critical aortic stenosis F/U ECHO Lopressor 25mg PO BID Crestor 20mg PO HS Prophylaxis Sennakot 1 tab PO HS Pepcid 20mg PO daily Lovenox 40mg SC daily All management per Dr. Stanley
[2017-03-01] MEDS: Emtricitabine-Tenofovir 200 mg-300 mg Tab PO SCH (10:24)
[2017-03-01] MEDS: Multiple Vitamins Tab PO SCH (10:24)
[2017-03-01] MEDS: Enoxaparin 40 mg Syringe SC SCH (10:25)
[2017-03-01 11:45] LABS: HEMATOCRIT 31.3 % (35.0-51.0); MEAN CELL VOLUME 68.5 fL (80.0-94.0); MEAN CORPUSCULAR HEMOGLOBIN 19.4 pg (27.0-31.0); MEAN CORPUSCULAR HGB CONC 28.2 g/dL (33.0-37.0); MEAN PLATELET VOLUME 7.1 fL (7.2-11.7); RED CELL DISTRIBUTION WIDTH 21.4 % (11.5-14.5); WHITE BLOOD COUNT 8.4 K/uL (4.8-10.8)
[2017-03-01 12:01] LABS: CHLORIDE 84 mmol/L (98-107); POTASSIUM 3.7 mmol/L (3.6-5.2); SODIUM 138 mmol/L (132-148)
[2017-03-01 12:04] LABS: BLOOD UREA NITROGEN 38 mg/dL (9-20); GFR AFRICAN-AMERICAN > 60
[2017-03-01 12:05] LABS: CALCIUM 7.4 mg/dl (8.6-10.4); GLUCOSE,RANDOM 183 mg/dL (75-110)
[2017-03-01 12:48] LABS: CARBON DIOXIDE 41 mmol/L (22-30)
[2017-03-01] MEDS: Moxifloxacin IV 400mg/250ml NS 400 MG/250 ML BAG IVPB SCH (13:59)
[2017-03-01] MEDS: Albuterol-Ipratrop 3 mg / 0.5 (3 ml) UD IH PRN ×2 (15:15→19:42)
[2017-03-01] MEDS: Docusate-Senna 50 mg-8.6 mg Tab PO SCH (21:57)
[2017-03-02 00:50] VITALS: TEMP 97.7
[2017-03-02] MEDS: MethylPREDNISolone 40 mg Vial IVP SCH ×2 (03:20→12:11)
[2017-03-02] MEDS: Albuterol-Ipratrop 3 mg / 0.5 (3 ml) UD IH PRN ×2 (08:15→12:07)
[2017-03-02 09:10] VITALS: PULSE 70
[2017-03-02 09:14] VITALS: RESP 18; O2SAT 98
[2017-03-02] MEDS: Emtricitabine-Tenofovir 200 mg-300 mg Tab PO SCH (12:07)
[2017-03-02] MEDS: Multiple Vitamins Tab PO SCH (12:07)
[2017-03-02] MEDS: Enoxaparin 40 mg Syringe SC SCH (12:08)
[2017-03-02 12:11] VITALS: BP 147/58
[2017-03-02] MEDS: Moxifloxacin IV 400mg/250ml NS 400 MG/250 ML BAG IVPB SCH (13:50)
--- NOTE | 2017-03-02 14:10 | CP.PCM.PN ---
Subjective - Date & Time of Evaluation Date of Evaluation: 03/02/17 Time of Evaluation: 14:10 - Subjective Subjective: PT SEEN BY DR. DE LA GARZA TODAY AND CLEARED FOR D/C TO [facility]. PT TO HAVE BIPAP WHILE THERE PER DR. DE LA GARZA. TRUCK OPERATOR DISCUSSED THIS WITH NIRMALA MARTINEZ WHO HAS ARRANGED BIPAP TO BE IN PT'S ROOM TODAY. TRANSPORTATION ARRANGED BY HER WELL. PT TO BE PLACED UNDER THE SERVICE OF DR. DE LA GARZA AND HE WILL F/U WITH PT WITHIN 1 WEEK. NO FURTHER ORDERS. Objective - Vital Signs/Intake and Output Vital Signs (last 24 hours): Temp Pulse Resp BP Pulse Ox 97.7 F 70 18 147/58 L 98 03/02/17 07:14 03/02/17 08:58 03/02/17 07:14 03/02/17 12:08 03/02/17 07:14 - Medications Medications: Current Medications Acetaminophen (Tylenol 325mg Tab) 650 mg PO Q4H PRN PRN Reason: Fever >100.4 F Last Admin: 03/02/17 02:50 Dose: 650 mg Albuterol/Ipratropium (Duoneb 3 Mg/0.5 Mg (3 Ml) Ud) 3 ml IH RQ4 PRN PRN Reason: Wheezing Last Admin: 03/02/17 12:07 Dose: 3 ml Benztropine Mesylate (Cogentin) 1 mg PO BID [facility] Last Admin: 03/02/17 12:07 Dose: 1 mg Emtricitabine/Tenofovir (Truvada 200 Mg-300 Mg) 1 tab PO DAILY [facility] Last Admin: 03/02/17 12:07 Dose: 1 tab Enoxaparin Sodium (Lovenox) 40 mg SC DAILY [facility] Last Admin: 03/02/17 12:08 Dose: 40 mg Famotidine (Pepcid) 20 mg PO DAILY [facility] Last Admin: 03/02/17 12:08 Dose: 20 mg Ferrous Sulfate (Feosol) 325 mg PO DAILY [facility] Last Admin: 03/02/17 12:09 Dose: 325 mg Fluphenazine HCl (Prolixin) 5 mg PO BID [facility] Last Admin: 03/02/17 12:07 Dose: 5 mg Furosemide (Lasix) 20 mg PO DAILY [facility] Last Admin: 03/02/17 12:08 Dose: 20 mg Hydroxyzine HCl (Atarax) 25 mg PO Q6 PRN PRN Reason: Agitation Last Admin: 03/01/17 18:18 Dose: 25 mg Moxifloxacin HCl (Avelox Iv 400mg/250ml Ns) 400 mg in 250 mls @ 167 mls/hr IVPB Q24H [facility] Last Admin: 03/02/17 13:50 Dose: 167 mls/hr Methylprednisolone (Solu-Medrol) 40 mg IVP Q6H [facility] Last Admin: 03/02/17 12:11 Dose: 40 mg Metoprolol Tartrate (Lopressor) 25 mg PO BID [facility] Last Admin: 03/02/17 12:08 Dose: 25 mg Montelukast Sodium (Singulair) 10 mg PO DAILY [facility] Last Admin: 03/02/17 12:08 Dose: 10 mg Multivitamins (Hexavitamin) 1 tab PO DAILY [facility] Last Admin: 03/02/17 12:07 Dose: 1 tab Ondansetron HCl (Zofran Tab) 4 mg PO Q4H PRN PRN Reason: Nausea/Vomiting Raltegravir (Isentress) 400 mg PO BID [facility] Last Admin: 03/01/17 19:36 Dose: 400 mg Rosuvastatin Calcium (Crestor) 20 mg PO HS [facility] Last Admin: 03/01/17 21:57 Dose: 20 mg Senna/Docusate Sodium (Senokot S 50 Mg-8.6 Mg) 1 tab PO HS [facility] Last Admin: 03/01/17 21:57 Dose: 1 tab Sertraline HCl (Zoloft) 50 mg PO DAILY [facility] Last Admin: 03/02/17 12:07 Dose: 50 mg Trazodone HCl (Desyrel) 50 mg PO HS [facility] Last Admin: 03/01/17 21:57 Dose: 50 mg - Labs Labs: 03/01/17 11:36 03/01/17 11:36
--- NOTE | 2017-03-04 14:44 | VASCLAB ---
PROCEDURE: Lower Extremity Venous Duplex Exam. HISTORY: Swelling PRIORS: None. TECHNIQUE: Bilateral common femoral, femoral, popliteal and posterior tibial, peroneal and great saphenous veins were evaluated. Flow was assessed with color Doppler, compressibility, assessment of phasic flow and augmentation response. Report prepared by DANNI Vera, RVT FINDINGS: RIGHT: 1. Common Femoral Vein: 1.1. Compressibility - Fully compressible: Thrombus - None : Flow - Phasic: Augmentation -Normal: Reflux - None. 2. Femoral Vein: 2.1. Compressibility - Fully compressible: Thrombus - None : Flow - Phasic: Augmentation -Normal: Reflux - None. 3. Popliteal Vein: 3.1. Compressibility - Fully compressible: Thrombus - None : Flow - Phasic: Augmentation -Normal: Reflux - None. 4. Posterior Tibial Vein: 4.1. Compressibility - : Thrombus - : Flow - : Augmentation -: Reflux - . 5. Peroneal Vein: 5.1. Compressibility - : Thrombus - : Flow - : Augmentation -: Reflux - . 6. Great Saphenous Vein: 6.1. Compressibility - Fully compressible: Thrombus - None: Flow - Phasic: Augmentation - Normal: Reflux - None. LEFT: 1. Common Femoral Vein: 1.1. Compressibility - Fully compressible: Thrombus - None: Flow - Phasic: Augmentation -Normal: Reflux - None. 2. Femoral Vein: 2.1. Compressibility - Fully compressible: Thrombus - None: Flow - Phasic: Augmentation -Normal: Reflux - None. 3. Popliteal Vein: 3.1. Compressibility - Fully compressible: Thrombus - None : Flow - Phasic: Augmentation -Normal: Reflux - None. 4. Posterior Tibial Vein: 4.1. Compressibility - Fully compressible: Thrombus - None: Flow - Phasic: Augmentation -Normal: Reflux - None. 5. Peroneal Vein: 5.1. Compressibility - Fully compressible: Thrombus - None: Flow - Phasic: Augmentation -Normal: Reflux - None. 6. Great Saphenous Vein: 6.1. Compressibility - Fully compressible: Thrombus - None: Flow - Phasic: Augmentation - Normal: Reflux - None. OTHER FINDINGS: Right: Due to swelling in the calf, the right peroneal and posterior tibial vein are not visualized. Left: None significant. IMPRESSION: Right: No evidence of deep or superficial vein thrombosis of the right lower extremity. Normal valve function noted of the right side. Left: No evidence of deep or superficial vein thrombosis of the left lower extremity. Normal valve function noted of the left side.
--- NOTE | 2017-03-13 14:32 | CARD ---
APPROVED REPORT EXAM: Two-dimensional and M-mode echocardiogram with Doppler and color Doppler. Other Information Quality : Technically LimitedRhythm : INDICATION Dyspnea Chest Pain Congestive Heart Failure COPD 2D DIMENSIONS IVSd0.9 (0.7-1.1cm)LVDd4.4 (3.9-5.9cm) PWd1.1 (0.7-1.1cm)IVSs1.3 (0.8-1.2cm) LVDs3.3 (2.5-4.0cm)FS (%) 26.0 % PWs1.1 (0.8-1.2cm)LVEF (%)51.3 (>50%) M-Mode DIMENSIONS RVDd4.15 (2.1-3.2cm)Left Atrium (MM)5.12 (2.5-4.0cm) IVSd1.16 (0.7-1.1cm)Aortic Root2.30 (2.2-3.7cm) LVDd4.29 (4.0-5.6cm)Aortic Cusp Exc.1.39 (1.5-2.0cm) PWd1.09 (0.7-1.1cm)FS (%) 33 % LVDs2.88 (2.0-3.8cm)LVEF (%)62 (>50%) Aortic Valve AoV Peak Iiujwziy192.5cm/Terell Peak GR.9mmHgLVOT Peak Kksmgdwr75.9cm/s Mitral Valve MV E Wnjygdnm81.0cm/sMV A Bsswbnwj30.6cm/sE/A ratio1.7 TDI E/Lateral E'0.0E/Medial E'0.0 Pulmonary Valve PV Peak Zfzspvay688.5cm/sPV Peak Grad.4mmHg Tricuspid Valve TR Peak Icaxgesj797ap/sTR Peak Gr.[id number] LEFT VENTRICLE The left ventricle is normal size. There is normal left ventricular wall thickness. The left ventricular function is normal. The left ventricular ejection fraction is within the normal range. There is normal LV segmental wall motion. Transmitral Doppler flow pattern is Grade II-pseudonormal filling dynamics. RIGHT VENTRICLE The right ventricle is not clearly visualized, however appears enlarged from limited views There is normal right ventricular wall thickness. The right ventricular systolic function is normal. ATRIA The left atrium is borderline dilated. The right atrium is mildly dilated. IAS is not well visualized AORTIC VALVE The AV leaflets are not well visualized No aortic regurgitation is present. There is no aortic valvular stenosis. MITRAL VALVE Mitral annular calcification is mild. Mainly on the posterior aspect of the MV annulous. There is no evidence of mitral valve prolapse. There is no mitral valve stenosis. There is no mitral valve regurgitation noted. TRICUSPID VALVE The tricuspid valve is normal in structure. There is trace to mild tricuspid regurgitation. RVSP = 50-60 There is moderate pulmonary hypertension. There is no tricuspid valve prolapse or vegetation. There is no tricuspid valve stenosis. PULMONIC VALVE PV is nwv mild PI There is no pulmonic valvular stenosis. GREAT VESSELS The aortic root is normal in size. The ascending aorta is normal in size. PERICARDIAL EFFUSION There is no pericardial effusion. There is no pleural effusion. <Conclusion> TDS Transmitral Doppler flow pattern is Grade II-pseudonormal filling dynamics. The left atrium is borderline dilated. The left ventricular ejection fraction is within the normal range. The right atrium is mildly dilated. The AV leaflets are not well visualized Mitral annular calcification is mild. Mainly on the posterior aspect of the MV annulous. There is trace to mild tricuspid regurgitation. RVSP = 50-60 There is moderate pulmonary hypertension. PV is nwv mild PI
--- NOTE | 2017-04-10 07:32 | DS ---
HISTORY OF PRESENT ILLNESS: The patient has history of lung and COPD. The patient has bronchodilators. The patient showed a lot of improvement. Monitor BiPAP setting. The patient transferred to rehab. Michael Stanley MD
== END 2017-03-02 15:15 | DRG 191 ==
LOC: C.ER 15:19 → C.6T 17:01 → OBSVTOIN 02-27 15:37 → C.6T 02-28 22:44
PROVIDERS: ADMIT Internal Medicine Pulmonary Disease; ATTEND Internal Medicine Pulmonary Disease
PROC: 30233N1 Transfusion of Nonautologous Red Blood Cells into Peripheral Vein, Percutaneous Approach (ICD-10-PCS; principal; 2017-02-27)
DX: J44.1 Chronic obstructive pulmonary disease with (acute) exacerbation (principal); F32.3 Major depressive disorder, single episode, severe with psychotic features; I50.9 Heart failure, unspecified; F25.1 Schizoaffective disorder, depressive type; E11.9 Type 2 diabetes mellitus without complications; F14.10 Cocaine abuse, uncomplicated; F12.10 Cannabis abuse, uncomplicated; D50.9 Iron deficiency anemia, unspecified; J45.909 Unspecified asthma, uncomplicated; G47.33 Obstructive sleep apnea (adult) (pediatric); I35.0 Nonrheumatic aortic (valve) stenosis; Z21 Asymptomatic human immunodeficiency virus [HIV] infection status; Z87.891 Personal history of nicotine dependence

== ENCOUNTER 2017-03-08 13:27 | Inpatient (IN) | payer MEDICARE, OTHER ==
[2017-03-08 13:28] VITALS: BMI 28.3
--- NOTE | 2017-03-08 14:09 | RAD ---
Indication: Shortness of breath Chest radiograph, one view Comparison: Chest radiograph performed 02/25/17 Findings: Examination limited due to habitus, hypoinflation, and patient obliquity. The patient's chin obscures evaluation of the lung apices. Right-sided central venous catheter. Median sternotomy wires. Cardiomegaly. Small right greater than left pleural effusions. Pulmonary venous congestion. Patchy airspace opacity at the right lung base. No definite pneumothorax. Degenerative changes of the spine and shoulders. Partially imaged metallic plate and screw fixation of the right humerus. Impression: Right-sided central venous catheter. Median sternotomy wires. Cardiomegaly. Small right greater than left pleural effusions. Pulmonary venous congestion. Patchy airspace opacity at the right lung base.
[2017-03-08 14:25] LABS: BASO # 0.1 K/uL (0.0-0.2); BASO % 0.5 % (0.0-2.0); EOS % 0.4 % (0.0-4.0); HEMATOCRIT 32.2 % (35.0-51.0); LYMPH # 0.2 K/uL (1.0-4.3); LYMPH % 1.5 % (20.0-40.0); MEAN CELL VOLUME 70.1 fL (80.0-94.0); MEAN CORPUSCULAR HEMOGLOBIN 19.4 pg (27.0-31.0); MEAN CORPUSCULAR HGB CONC 27.7 g/dL (33.0-37.0); MEAN PLATELET VOLUME 8.5 fL (7.2-11.7); MONO # 0.9 K/uL (0.0-0.8); MONO % 7.7 % (0.0-10.0); PLATELET COUNT 132 K/uL (130-400); RED CELL DISTRIBUTION WIDTH 23.6 % (11.5-14.5); WHITE BLOOD COUNT 11.7 K/uL (4.8-10.8)
[2017-03-08 14:26] LABS: ABG ALLEN TEST UNABLE; ARTERIAL BLOOD HGB O2 SAT 95.5 % (95.0-98.0); CARBOXYHEMOGLOBIN 2.6 % (0.5-1.5); DRAW SITE LR; HHB 1.2 % (0.0-5.0); METHEMOGLOBIN 0.7 % (0.0-3.0)
--- NOTE | 2017-03-08 14:29 | C.PDOC ---
History Of Present Illness 66 y/o male, whose PMHx includes COPD, and lung cancer, is sent to the ED from retirement for evaluation of diminished respiratory, and altered mental status for the last 2 days. Information obtained from [place] papers. HPI limited due to patient's non-verbal status. Time Seen by Provider: 03/08/17 13:32 Chief Complaint (Nursing): Altered Mental Status History Per: Patient History/Exam Limitations: clinical condition Onset/Duration Of Symptoms: Days (2) Current Symptoms Are (Timing): Still Present Additional History Per: Long-Term Past Medical History Reviewed: Historical Data, Nursing Documentation, Vital Signs Vital Signs: Last Vital Signs Temp 99.2 F 03/08/17 13:49 Pulse 65 03/08/17 14:54 Resp 12 03/08/17 15:01 BP 127/53 L 03/08/17 13:49 Pulse Ox 97 03/08/17 14:52 - Medical History PMH: Arthritis, Asthma, CHF, COPD, Diabetes, Emphysema, Fractures (left lower leg, wrist , hand), HIV, Hyperlipidemia - [facility] Procedures NEBULIZER THERAPY (11/15/13) TRANSFUSE NONAUT RED BLOOD CELLS IN PERIPH VEIN, PERC (02/27/17) Family History: States: Unknown Family Hx - Social History Hx Tobacco Use: Yes Hx Alcohol Use: No Hx Substance Use: No Review Of Systems Review Of Systems: ROS cannot be obtained secondary to pt's inabilty to answer questions. Physical Exam - Physical Exam Appears: Non-toxic, Other (obese) Skin: Warm, Dry, Pale, Ecchymosis (diffuse bruising) Head: Atraumatic, Normacephalic Eye(s): bilateral: Normal Inspection Oral Mucosa: Moist Neck: Supple Chest: Symmetrical Cardiovascular: Rhythm Regular, No Murmur Respiratory: Decreased Breath Sounds (distant lung sounds) Gastrointestinal/Abdominal: Soft, No Tenderness, Other (obese abdomen) Extremity: Pedal Edema (mild), Capillary Refill (< 2 sec.), No Deformity Extremity: Bilateral: Atraumatic Neurological/Psych: Other (lethargic, non-conversant, arousable with painful stimuli ) ED Course And Treatment - Laboratory Results Result Diagrams: 03/08/17 14:15 03/08/17 14:15 Interpretation Of Abnormal: 7.40/82/230/43/99% ON Vapotherm 70% O2 ECG: Interpreted By Me ECG Rhythm: Sinus Rhythm ECG Interpretation: Normal Rate From EC O2 Sat by Pulse Oximetry: 97 (RA) Pulse Ox Interpretation: Normal - Radiology CXR: Interpreted by Me CXR Interpretation: Yes: COPD, Other (chf) Progress Note: Blood work, urinalysis, EKG, CXR ordered and reviewed. Reevaluation Time: 15:35 Reassessment Condition: Improved (awake, alert, conversant) - Physician Consult Information Outcome Of Conversation: 1530: d/w Dr. Horne- ok to Tele Adm Medical Decision Making Medical Decision Making: CO2 retention, chf, COPD exacerbation, MUCH improved on BiPaP Disposition Doctor Will See Patient In The: Hospital Counseled Patient/Family Regarding: Studies Performed, Diagnosis - Disposition Disposition: HOSPITALIZED Disposition Time: 15:37 Condition: GOOD Forms: [facility] (Pashto) - Clinical Impression Clinical Impression: CHF (congestive heart failure), COPD (chronic obstructive pulmonary disease), Change in mental status, Hypokalemia, Anemia - Scribe Statement The provider has reviewed the documentation as recorded by the Milindibbernice Bain All medical record entries made by the Milindibbernice were at my direction and personally dictated by me. I have reviewed the chart and agree that the record accurately reflects my personal performance of the history, physical exam, medical decision making, and the department course for this patient. I have also personally directed, reviewed, and agree with the discharge instructions and disposition.
[2017-03-08 14:33] LABS: CHLORIDE 82 mmol/L (98-107); SODIUM 139 mmol/L (132-148)
[2017-03-08 14:35] LABS: GFR AFRICAN-AMERICAN > 60
[2017-03-08 14:36] LABS: ALKALINE PHOSPHATASE 170 U/L (38-126); ALT/SGPT 72 U/L (21-72); AST/SGOT 85 U/L (17-59); BILIRUBIN,TOTAL 1.2 mg/dL (0.2-1.3); BLOOD UREA NITROGEN 19 mg/dL (9-20); GLUCOSE,RANDOM 105 mg/dL (75-110); TOTAL PROTEIN 6.4 g/dL (6.3-8.3)
[2017-03-08 14:37] LABS: CALCIUM 7.1 mg/dl (8.6-10.4)
[2017-03-08 15:03] LABS: EOSINOPHIL 2 % (0-4); NEUTROPHIL 93 % (50-75); TOTAL CELLS COUNTED 100
[2017-03-08 15:14] LABS: CARBON DIOXIDE 48 mmol/L (22-30)
[2017-03-08 15:18] LABS: RBC URINE < 1 /hpf (0-3); URINE BILIRUBIN NEGATIVE (NEGATIVE); URINE BLOOD NEGATIVE (NEGATIVE); URINE COLOR Yellow (YELLOW); URINE GLUCOSE (UA) 1+ mg/dL (Normal); URINE KETONE TRACE mg/dL (NEGATIVE); URINE LEUKOCYTE ESTERASE NEG Leu/uL (Negative); URINE PROTEIN 2+ mg/dL (NEGATIVE); WBC URINE 5 /hpf (0-5)
[2017-03-08] MEDS ORDERED: Potassium Chloride 10 mEq ER Tab PO STA (15:29)
[2017-03-08] MEDS ORDERED: Potassium Chloride 20 mEq ER Tab PO ONE (15:55)
[2017-03-08] MEDS: Albuterol-Ipratrop 3 mg / 0.5 (3 ml) UD INH SCH ×2 (21:17→23:34)
[2017-03-08] MEDS: (Novolog) Insulin Aspart, Recombinant 100 u/ml 10 ml vial SC SCH (22:08)
[2017-03-08] MEDS: MethylPREDNISolone 40 mg Vial IVP SCH (22:18)
[2017-03-09] MEDS: Moxifloxacin IV 400mg/250ml NS 400 MG/250 ML BAG IVPB SCH (00:27)
[2017-03-09] MEDS: Albuterol-Ipratrop 3 mg / 0.5 (3 ml) UD INH SCH ×5 (03:04→19:39)
[2017-03-09] MEDS: MethylPREDNISolone 40 mg Vial IVP SCH ×3 (06:53→21:30)
[2017-03-09] MEDS: (Novolog) Insulin Aspart, Recombinant 100 u/ml 10 ml vial SC SCH ×4 (07:34→21:35)
[2017-03-09] MEDS: Enoxaparin 40 mg Syringe SC SCH ×2 (11:25→13:50)
[2017-03-09] MEDS: Multiple Vitamins Tab PO SCH ×2 (11:25→13:50)
[2017-03-09] MEDS: Potassium Chloride 20 mEq ER Tab PO SCH ×2 (11:25→13:49)
[2017-03-09] MEDS: Emtricitabine-Tenofovir 200 mg-300 mg Tab PO SCH ×2 (11:26→13:50)
[2017-03-09 12:44] LABS: ABG ALLEN TEST POS; ARTERIAL BLOOD GAS MODE BiPAP; DRAW SITE LRA
[2017-03-10] MEDS: Moxifloxacin IV 400mg/250ml NS 400 MG/250 ML BAG IVPB SCH (00:10)
[2017-03-10] MEDS: Albuterol-Ipratrop 3 mg / 0.5 (3 ml) UD INH SCH ×7 (00:16→23:40)
[2017-03-10] MEDS: MethylPREDNISolone 40 mg Vial IVP SCH ×3 (05:17→21:43)
[2017-03-10] MEDS: (Novolog) Insulin Aspart, Recombinant 100 u/ml 10 ml vial SC SCH ×4 (07:30→21:30)
[2017-03-10] MEDS: Enoxaparin 40 mg Syringe SC SCH (09:25)
[2017-03-10] MEDS: Potassium Chloride 20 mEq ER Tab PO SCH (10:38)
[2017-03-10] MEDS: Multiple Vitamins Tab PO SCH (10:39)
[2017-03-10] MEDS: Emtricitabine-Tenofovir 200 mg-300 mg Tab PO SCH (10:43)
--- NOTE | 2017-03-10 18:38 | PN ---
DATE: 03/10/2017 The patient gets supportive care, IV antibiotics, bronchodilator, BiPAP therapy. Michael Stanley MD
[2017-03-11] MEDS: Moxifloxacin IV 400mg/250ml NS 400 MG/250 ML BAG IVPB SCH ×2 (00:13→23:44)
[2017-03-11] MEDS: Albuterol-Ipratrop 3 mg / 0.5 (3 ml) UD INH SCH ×5 (04:16→19:13)
[2017-03-11] MEDS: MethylPREDNISolone 40 mg Vial IVP SCH ×3 (05:29→22:13)
[2017-03-11] MEDS: (Novolog) Insulin Aspart, Recombinant 100 u/ml 10 ml vial SC SCH ×3 (08:07→18:50)
[2017-03-11] MEDS: Enoxaparin 40 mg Syringe SC SCH (10:53)
[2017-03-11] MEDS: Potassium Chloride 20 mEq ER Tab PO SCH (10:53)
[2017-03-11] MEDS: Multiple Vitamins Tab PO SCH (10:54)
[2017-03-11] MEDS: Emtricitabine-Tenofovir 200 mg-300 mg Tab PO SCH (10:56)
--- NOTE | 2017-03-11 13:14 | CARD ---
APPROVED REPORT EKG Measurement Heart [id number] <Conclusion> Normal sinus rhythm Nonspecific T wave abnormality Abnormal ECG
--- NOTE | 2017-03-11 15:23 | CP.PCM.PN ---
Subjective - Date & Time of Evaluation Date of Evaluation: 03/11/17 Time of Evaluation: 08:00 - Subjective Subjective: PGY [address] Stanley: Patient seen and examined at bedside this morning. He reports that his breathing has improved and he is comfortable using NC and off of the BIPAP. He was complaining of mild abdominal pain but stated he has a good appetite and denies N/V. He denied headache, changes in vision, CP, urinary complains (silverman in place), weakness, numbness in the extremities. On admission he was altered but is very awake and alert today. Objective - Vital Signs/Intake and Output Vital Signs (last 24 hours): Temp Pulse Resp BP Pulse Ox 97.5 F L 88 18 127/68 95 03/11/17 07:20 03/11/17 12:34 03/11/17 07:20 03/11/17 10:50 03/11/17 07:20 Intake and Output: 03/11/17 03/11/17 06:59 18:59 Output Total 600 Balance -600 - Medications Medications: Current Medications Acetaminophen (Tylenol 325mg Tab) 650 mg PO Q6H PRN PRN Reason: Fever >100.4 F Last Admin: 03/10/17 12:42 Dose: 650 mg Albuterol/Ipratropium (Duoneb 3 Mg/0.5 Mg (3 Ml) Ud) 3 ml INH RQ4 [facility] Last Admin: 03/11/17 12:15 Dose: Not Given Benztropine Mesylate (Cogentin) 1 mg PO BID [facility] Last Admin: 03/11/17 10:54 Dose: 1 mg Emtricitabine/Tenofovir (Truvada 200 Mg-300 Mg) 1 tab PO DAILY [facility] Last Admin: 03/11/17 10:56 Dose: 1 tab Enoxaparin Sodium (Lovenox) 40 mg SC DAILY [facility] Last Admin: 03/11/17 10:53 Dose: 40 mg Famotidine (Pepcid) 20 mg PO DAILY [facility] Last Admin: 03/11/17 10:53 Dose: 20 mg Ferrous Sulfate (Feosol) 325 mg PO DAILY [facility] Last Admin: 03/11/17 10:53 Dose: 325 mg Fluphenazine HCl (Prolixin) 5 mg PO BID [facility] Last Admin: 03/11/17 10:55 Dose: 5 mg Furosemide (Lasix) 20 mg PO DAILY [facility] Last Admin: 03/11/17 10:50 Dose: 20 mg Hydroxyzine HCl (Atarax) 25 mg PO Q6 PRN PRN Reason: Itching / Pruritus Moxifloxacin HCl (Avelox Iv 400mg/250ml Ns) 400 mg in 250 mls @ 167 mls/hr IVPB Q24H [facility] Last Admin: 03/11/17 00:13 Dose: 167 mls/hr Insulin Aspart (Novolog) 0 unit SC ACHS [facility] PRN Reason: Protocol Last Admin: 03/11/17 12:15 Dose: 3 unit Methylprednisolone (Solu-Medrol) 40 mg IVP Q8 [facility] Last Admin: 03/11/17 14:34 Dose: 40 mg Metoprolol Tartrate (Lopressor) 25 mg PO BID [facility] Last Admin: 03/11/17 10:50 Dose: 25 mg Montelukast Sodium (Singulair) 10 mg PO HS [facility] Last Admin: 03/10/17 21:43 Dose: 10 mg Multivitamins (Hexavitamin) 1 tab PO DAILY [facility] Last Admin: 03/11/17 10:54 Dose: 1 tab Potassium Chloride (K-Dur 20 Meq Er Tab) 20 meq PO DAILY [facility] Last Admin: 03/11/17 10:53 Dose: 20 meq Raltegravir (Isentress) 400 mg PO BID [facility] Last Admin: 03/11/17 10:55 Dose: 400 mg Rosuvastatin Calcium (Crestor) 20 mg PO HS [facility] Last Admin: 03/10/17 21:45 Dose: 20 mg Senna/Docusate Sodium (Senokot S 50 Mg-8.6 Mg) 1 tab PO HS PRN PRN Reason: Constipation Sertraline HCl (Zoloft) 50 mg PO DAILY [facility] Last Admin: 03/11/17 10:53 Dose: 50 mg Trazodone HCl (Desyrel) 50 mg PO [facility] Last Admin: 03/10/17 21:43 Dose: 50 mg - Constitutional Appears: Non-toxic, No Acute Distress, Chronically Ill - Head Exam Head Exam: ATRAUMATIC, NORMAL INSPECTION - Eye Exam Eye Exam: EOMI, Normal appearance Pupil Exam: NORMAL ACCOMODATION - ENT Exam ENT Exam: Mucous Membranes Moist - Respiratory Exam Respiratory Exam: Decreased Breath Sounds, NORMAL BREATHING PATTERN. absent: Accessory Muscle Use, Clear to Ausculation Bilateral, Respiratory Distress - Cardiovascular Exam Cardiovascular Exam: REGULAR RHYTHM, +S1, +S2 - GI/Abdominal Exam GI & Abdominal Exam: Soft, Normal Bowel Sounds. absent: Distended, Firm, Guarding, Tenderness Additional comments: obese - Extremities Exam Extremities Exam: Pedal Edema. absent: Normal Inspection - Back Exam Back Exam: NORMAL INSPECTION. absent: CVA tenderness (L), CVA tenderness (R), paraspinal tenderness - Neurological Exam Neurological Exam: Alert, Awake, CN II-XII Intact, Oriented x3 - Psychiatric Exam Psychiatric exam: Anxious, Normal Affect, Normal Mood - Skin Skin Exam: Dry, Intact, Normal Color Assessment and Plan - Assessment and Plan (Free Text) Assessment: Dyspnea Improved, BIPA discontinued now on NC (on NC at home) Secondary to COPD v. CHF v. Lung CA v. Pneumonia ABG pH 7.52/ CO2 64/ O2 62/ HCO3 44.3 CXR 02/25/17 -> small right greater than left pleural effusions, right sided cv cathether, median sternotomy wires,; patchy airspace opacity at the right lung base; cardiomegaly BNP [id number] Afebrile, no leukocytosis F/U ECHo Avelox 200mg IVPB Q24 (started 03/09) Lopressor 25 mg PO BID [facility] Solumedrol 40mg IVP Q8 [facility] Lasix 20mg PO daily Duoneb Q4 [facility] KCL 20meq PO HS Crestor 20mg PO HS Tylenol prn f/u labs today Microcytic Anemia Secondary to chronic disease v. iron deficiency Hgb 8.9 - chronic Feosol 325mg PO daily Obstructive Sleep Apnea BiPAP ordered for night time use- patient should go to [facility] living with BIPAP History of COPD Well controlled with O2 nasal cannula and BIPAP Duoneb 3ml INH RQ4 PRN wheezing Solu-Medrol 40mg IVP Q6H Singulair 10mg PO daily History of HIV Truvada 1 tab PO daily (home med) Isentress 400mg PO BID (home med) History of critical aortic stenosis F/U ECHO Lopressor 25mg PO BID Crestor 20mg PO HS Prophylaxis Pepcid 20mg PO daily Lovenox 40mg SC daily Zoloft 50mg PO daily Trazodone 50mg PO HS All management per Dr. Stanley
[2017-03-12] MEDS: Albuterol-Ipratrop 3 mg / 0.5 (3 ml) UD INH SCH ×6 (00:04→20:16)
[2017-03-12] MEDS: MethylPREDNISolone 40 mg Vial IVP SCH ×2 (06:14→21:29)
[2017-03-12] MEDS: (Novolog) Insulin Aspart, Recombinant 100 u/ml 10 ml vial SC SCH ×4 (07:43→21:16)
[2017-03-12 08:55] LABS: BASO % 0.3 % (0.0-2.0); HEMATOCRIT 31.5 % (35.0-51.0); LYMPH # 0.1 K/uL (1.0-4.3); LYMPH % 0.7 % (20.0-40.0); MEAN CELL VOLUME 71.6 fL (80.0-94.0); MEAN CORPUSCULAR HEMOGLOBIN 19.9 pg (27.0-31.0); MEAN CORPUSCULAR HGB CONC 27.8 g/dL (33.0-37.0); MEAN PLATELET VOLUME 8.7 fL (7.2-11.7); MONO # 0.4 K/uL (0.0-0.8); MONO % 2.8 % (0.0-10.0); PLATELET COUNT 124 K/uL (130-400); RED CELL DISTRIBUTION WIDTH 24.2 % (11.5-14.5)
[2017-03-12 09:13] LABS: CHLORIDE 86 mmol/L (98-107); POTASSIUM 3.1 mmol/L (3.6-5.2); SODIUM 138 mmol/L (132-148)
[2017-03-12 09:15] LABS: ALB/GLOB RATIO 0.9 (1.0-2.1); ALKALINE PHOSPHATASE 162 U/L (38-126); ALT/SGPT 68 U/L (21-72); AST/SGOT 84 U/L (17-59); BLOOD UREA NITROGEN 25 mg/dL (9-20); GFR AFRICAN-AMERICAN > 60; GLUCOSE,RANDOM 168 mg/dL (75-110); TOTAL PROTEIN 6.2 g/dL (6.3-8.3)
[2017-03-12 09:16] LABS: MAGNESIUM 1.9 mg/dL (1.6-2.3); PHOSPHOROUS 1.7 mg/dL (2.5-4.5)
[2017-03-12 09:30] LABS: NEUTROPHIL 96 % (50-75); TOTAL CELLS COUNTED 100
[2017-03-12] MEDS: Enoxaparin 40 mg Syringe SC SCH ×2 (10:00→10:41)
[2017-03-12 10:08] LABS: CARBON DIOXIDE 40 mmol/L (22-30)
[2017-03-12] MEDS: Emtricitabine-Tenofovir 200 mg-300 mg Tab PO SCH (10:42)
[2017-03-12] MEDS: Potassium Chloride 20 mEq ER Tab PO SCH (10:42)
[2017-03-12] MEDS: Multiple Vitamins Tab PO SCH (10:42)
--- NOTE | 2017-03-12 11:04 | CP.PCM.PN ---
Subjective - Date & Time of Evaluation Date of Evaluation: 03/12/17 Time of Evaluation: 07:10 - Subjective Subjective: PGY-[address] Stanley Patient seen and examined at bedside. Patient is currently on BIPAP and very lethargic during the examination. Patient's is comfortable and is not in acute distress. No reported fever, chills, chest pain, nausea, vomiting, or diarrhea. Objective - Vital Signs/Intake and Output Vital Signs (last 24 hours): Temp Pulse Resp BP Pulse Ox 97.8 F 94 H 20 112/64 98 03/12/17 07:25 03/12/17 07:45 03/12/17 07:25 03/12/17 10:50 03/12/17 07:25 Intake and Output: 03/12/17 03/12/17 06:59 18:59 Output Total 775 Balance -775 - Medications Medications: Current Medications Acetaminophen (Tylenol 325mg Tab) 650 mg PO Q6H PRN PRN Reason: Fever >100.4 F Last Admin: 03/10/17 12:42 Dose: 650 mg Albuterol/Ipratropium (Duoneb 3 Mg/0.5 Mg (3 Ml) Ud) 3 ml INH RQ4 [facility] Last Admin: 03/12/17 07:51 Dose: 3 ml Benztropine Mesylate (Cogentin) 1 mg PO BID [facility] Last Admin: 03/12/17 10:43 Dose: 1 mg Emtricitabine/Tenofovir (Truvada 200 Mg-300 Mg) 1 tab PO DAILY [facility] Last Admin: 03/12/17 10:42 Dose: 1 tab Enoxaparin Sodium (Lovenox) 40 mg SC DAILY [facility] Last Admin: 03/12/17 10:41 Dose: 40 mg Famotidine (Pepcid) 20 mg PO DAILY [facility] Last Admin: 03/12/17 10:43 Dose: 20 mg Ferrous Sulfate (Feosol) 325 mg PO DAILY [facility] Last Admin: 03/12/17 10:42 Dose: 325 mg Fluphenazine HCl (Prolixin) 5 mg PO BID [facility] Last Admin: 03/12/17 10:42 Dose: 5 mg Furosemide (Lasix) 20 mg PO DAILY [facility] Last Admin: 03/12/17 10:50 Dose: 20 mg Hydroxyzine HCl (Atarax) 25 mg PO Q6 PRN PRN Reason: Itching / Pruritus Moxifloxacin HCl (Avelox Iv 400mg/250ml Ns) 400 mg in 250 mls @ 167 mls/hr IVPB Q24H [facility] Last Admin: 03/11/17 23:44 Dose: 167 mls/hr Insulin Aspart (Novolog) 0 unit SC ACHS [facility] PRN Reason: Protocol Last Admin: 03/12/17 07:43 Dose: 2 unit Methylprednisolone (Solu-Medrol) 40 mg IVP Q12 [facility] Metoprolol Tartrate (Lopressor) 25 mg PO BID [facility] Last Admin: 03/12/17 10:49 Dose: 25 mg Montelukast Sodium (Singulair) 10 mg PO [facility] Last Admin: 03/11/17 22:13 Dose: 10 mg Multivitamins (Hexavitamin) 1 tab PO DAILY [facility] Last Admin: 03/12/17 10:42 Dose: 1 tab Potassium Chloride (K-Dur 20 Meq Er Tab) 20 meq PO DAILY [facility] Last Admin: 03/12/17 10:42 Dose: 20 meq Raltegravir (Isentress) 400 mg PO BID [facility] Last Admin: 03/12/17 10:42 Dose: 400 mg Rosuvastatin Calcium (Crestor) 20 mg PO [facility] Last Admin: 03/11/17 22:13 Dose: 20 mg Senna/Docusate Sodium (Senokot S 50 Mg-8.6 Mg) 1 tab PO HS PRN PRN Reason: Constipation Sertraline HCl (Zoloft) 50 mg PO DAILY [facility] Last Admin: 03/12/17 10:42 Dose: 50 mg Trazodone HCl (Desyrel) 50 mg PO [facility] Last Admin: 03/11/17 22:13 Dose: 50 mg - Labs Labs: 03/12/17 08:49 03/12/17 08:49 - Constitutional Appears: Non-toxic, No Acute Distress, Chronically Ill - Head Exam Head Exam: ATRAUMATIC, NORMAL INSPECTION - Eye Exam Eye Exam: EOMI, Normal appearance - ENT Exam ENT Exam: Mucous Membranes Moist - Neck Exam Neck Exam: Normal Inspection - Respiratory Exam Respiratory Exam: Decreased Breath Sounds, NORMAL BREATHING PATTERN. absent: Respiratory Distress - Cardiovascular Exam Cardiovascular Exam: REGULAR RHYTHM, +S1, +S2 - GI/Abdominal Exam GI & Abdominal Exam: Soft, Normal Bowel Sounds. absent: Tenderness - Extremities Exam Extremities Exam: Pedal Edema - Neurological Exam Neurological Exam: Alert, Awake - Psychiatric Exam Psychiatric exam: Normal Affect, Normal Mood - Skin Skin Exam: Dry, Intact, Normal Color Assessment and Plan - Assessment and Plan (Free Text) Assessment: Dyspnea Continue BIPAP Secondary to COPD v. CHF v. Lung CA v. Pneumonia Elevated bicarb at 40 this morning, likely secondary to CO2 retention 03/09 ABG: pH 7.52/ CO2 64/ O2 62/ HCO3 44.3 CXR 02/25/17 -> small right greater than left pleural effusions, right sided cv cathether, median sternotomy wires,; patchy airspace opacity at the right lung base; cardiomegaly BNP [id number] Afebrile, no leukocytosis F/U ECH[facility] Avelox 200mg IVPB Q24 (started 03/09) Lopressor 25 mg PO BID [facility] Solumedrol 40mg IVP Q12 [facility] tapering Lasix 20mg PO daily Duoneb Q4 [facility] KCL 20meq PO HS Crestor 20mg PO HS Tylenol prn Microcytic Anemia Secondary to chronic disease v. iron deficiency Hgb 8.8 - chronic Feosol 325mg PO daily Obstructive Sleep Apnea BiPAP ordered for night time use- patient should go to [facility] with BIPAP History of COPD Well controlled with O2 nasal cannula and BIPAP Duoneb 3ml INH RQ4 PRN wheezing Solu-Medrol 40mg IVP Q12H Singulair 10mg PO daily History of HIV Truvada 1 tab PO daily (home med) Isentress 400mg PO BID (home med) History of critical aortic stenosis F/U ECHO Lopressor 25mg PO BID Crestor 20mg PO HS Prophylaxis Pepcid 20mg PO daily Lovenox 40mg SC daily Zoloft 50mg PO daily Trazodone 50mg PO HS All management per Dr. Stanley
[2017-03-13] MEDS: Moxifloxacin IV 400mg/250ml NS 400 MG/250 ML BAG IVPB SCH (00:18)
[2017-03-13] MEDS: Albuterol-Ipratrop 3 mg / 0.5 (3 ml) UD INH SCH ×7 (00:28→23:32)
[2017-03-13 08:03] LABS: BASO % 0.2 % (0.0-2.0); HEMATOCRIT 30.2 % (35.0-51.0); LYMPH # 0.1 K/uL (1.0-4.3); LYMPH % 0.6 % (20.0-40.0); MEAN CELL VOLUME 70.8 fL (80.0-94.0); MEAN CORPUSCULAR HEMOGLOBIN 20.2 pg (27.0-31.0); MEAN CORPUSCULAR HGB CONC 28.5 g/dL (33.0-37.0); MEAN PLATELET VOLUME 8.7 fL (7.2-11.7); MONO # 0.2 K/uL (0.0-0.8); MONO % 1.1 % (0.0-10.0); PLATELET COUNT 110 K/uL (130-400); RED CELL DISTRIBUTION WIDTH 25.2 % (11.5-14.5); WHITE BLOOD COUNT 21.1 K/uL (4.8-10.8)
--- NOTE | 2017-03-13 08:16 | CP.PCM.PN ---
Subjective - Date & Time of Evaluation Date of Evaluation: 03/13/17 Time of Evaluation: 07:10 - Subjective Subjective: PGY-2 Resident Progress Note for Dr. Stanley Patient seen and examined at bedside. Nursing staff reports patient has been refusing medications. Patient is currently on BIPAP. Patient is still lethargic and refused to answer questions. Unable to obtain further ROS due to lack of cooperation. Objective - Vital Signs/Intake and Output Vital Signs (last 24 hours): Temp Pulse Resp BP Pulse Ox 98.6 F 77 20 102/55 L 93 L 03/13/17 07:30 03/13/17 07:30 03/13/17 07:30 03/13/17 07:30 03/13/17 07:30 Intake and Output: 03/13/17 03/13/17 06:59 18:59 Intake Total 100 Output Total 1100 Balance -1000 - Medications Medications: Current Medications Acetaminophen (Tylenol 325mg Tab) 650 mg PO Q6H PRN PRN Reason: Fever >100.4 F Last Admin: 03/10/17 12:42 Dose: 650 mg Albuterol/Ipratropium (Duoneb 3 Mg/0.5 Mg (3 Ml) Ud) 3 ml INH RQ4 [facility] Last Admin: 03/13/17 07:45 Dose: 3 ml Benztropine Mesylate (Cogentin) 1 mg PO BID [facility] Last Admin: 03/12/17 17:29 Dose: Not Given Emtricitabine/Tenofovir (Truvada 200 Mg-300 Mg) 1 tab PO DAILY [facility] Last Admin: 03/12/17 10:42 Dose: 1 tab Enoxaparin Sodium (Lovenox) 40 mg SC DAILY [facility] Last Admin: 03/12/17 10:00 Dose: Not Given Famotidine (Pepcid) 20 mg PO DAILY [facility] Last Admin: 03/12/17 10:43 Dose: 20 mg Ferrous Sulfate (Feosol) 325 mg PO DAILY [facility] Last Admin: 03/12/17 10:42 Dose: 325 mg Fluphenazine HCl (Prolixin) 5 mg PO BID [facility] Last Admin: 03/12/17 17:30 Dose: Not Given Furosemide (Lasix) 20 mg PO DAILY [facility] Last Admin: 03/12/17 10:50 Dose: 20 mg Hydroxyzine HCl (Atarax) 25 mg PO Q6 PRN PRN Reason: Itching / Pruritus Moxifloxacin HCl (Avelox Iv 400mg/250ml Ns) 400 mg in 250 mls @ 167 mls/hr IVPB Q24H [facility] Last Admin: 03/13/17 00:18 Dose: 167 mls/hr Insulin Aspart (Novolog) 0 unit SC ACHS [facility] PRN Reason: Protocol Last Admin: 03/12/17 21:16 Dose: Not Given Methylprednisolone (Solu-Medrol) 40 mg IVP Q12 [facility] Last Admin: 03/12/17 21:29 Dose: 40 mg Metoprolol Tartrate (Lopressor) 25 mg PO BID [facility] Last Admin: 03/12/17 17:30 Dose: Not Given Montelukast Sodium (Singulair) 10 mg PO [facility] Last Admin: 03/12/17 21:16 Dose: Not Given Multivitamins (Hexavitamin) 1 tab PO DAILY [facility] Last Admin: 03/12/17 10:42 Dose: 1 tab Potassium Chloride (K-Dur 20 Meq Er Tab) 20 meq PO DAILY [facility] Last Admin: 03/12/17 10:42 Dose: 20 meq Raltegravir (Isentress) 400 mg PO BID [facility] Last Admin: 03/12/17 17:29 Dose: Not Given Rosuvastatin Calcium (Crestor) 20 mg PO [facility] Last Admin: 03/12/17 21:15 Dose: Not Given Senna/Docusate Sodium (Senokot S 50 Mg-8.6 Mg) 1 tab PO HS PRN PRN Reason: Constipation Sertraline HCl (Zoloft) 50 mg PO DAILY [facility] Last Admin: 03/12/17 10:42 Dose: 50 mg Trazodone HCl (Desyrel) 50 mg PO [facility] Last Admin: 03/12/17 21:16 Dose: Not Given - Labs Labs: 03/13/17 07:54 03/12/17 08:49 - Constitutional Appears: No Acute Distress, Chronically Ill - Head Exam Head Exam: ATRAUMATIC, NORMAL INSPECTION - Eye Exam Eye Exam: Normal appearance - ENT Exam ENT Exam: Mucous Membranes Moist - Neck Exam Neck Exam: Normal Inspection - Respiratory Exam Respiratory Exam: Decreased Breath Sounds, NORMAL BREATHING PATTERN. absent: Respiratory Distress - Cardiovascular Exam Cardiovascular Exam: REGULAR RHYTHM, +S1, +S2. absent: Murmur - GI/Abdominal Exam GI & Abdominal Exam: Soft, Normal Bowel Sounds - Extremities Exam Extremities Exam: Pedal Edema - Neurological Exam Neurological Exam: Alert, Awake - Skin Skin Exam: Normal Color, Warm Assessment and Plan - Assessment and Plan (Free Text) Assessment: Dyspnea Continue BIPAP Repeat ABG, CXR pending Secondary to COPD v. CHF v. Lung CA v. Pneumonia Elevated bicarb at 40 this morning, likely secondary to CO2 retention 03/09 ABG: pH 7.52/ CO2 64/ O2 62/ HCO3 44.3 CXR 02/25/17 -> small right greater than left pleural effusions, right sided cv cathether, median sternotomy wires,; patchy airspace opacity at the right lung base; cardiomegaly Repeat CXR pending BNP [id number] Afebrile, no leukocytosis Avelox 200mg IVPB Q24 (started 03/09) Lopressor 25 mg PO BID [facility] Solumedrol 40mg IVP Q12 [facility] tapering Lasix 20mg PO daily Duoneb Q4 [facility] KCL 20meq PO HS Crestor 20mg PO HS Tylenol prn Hypokalemia Potassium 2.6 today Continue daily PO supplement Addition IV KCl ordered Monitor daily, supplement as needed Microcytic Anemia Secondary to chronic disease v. iron deficiency Hgb 8.6 - chronic Feosol 325mg PO daily Obstructive Sleep Apnea BiPAP ordered for night time use- patient should go to residential with BIPAP History of COPD Well controlled with O2 nasal cannula and BIPAP Duoneb 3ml INH RQ4 PRN wheezing Solu-Medrol 40mg IVP Q12H Singulair 10mg PO daily History of HIV Truvada 1 tab PO daily (home med) Isentress 400mg PO BID (home med) History of critical aortic stenosis F/U ECHO Lopressor 25mg PO BID Crestor 20mg PO HS Prophylaxis Pepcid 20mg PO daily Lovenox 40mg SC daily Zoloft 50mg PO daily Trazodone 50mg PO HS All management per Dr. Stanley
[2017-03-13] MEDS: (Novolog) Insulin Aspart, Recombinant 100 u/ml 10 ml vial SC SCH ×4 (08:30→21:57)
[2017-03-13 08:35] LABS: CHLORIDE 90 mmol/L (98-107); POTASSIUM 2.6 mmol/L (3.6-5.2); SODIUM 143 mmol/L (132-148)
[2017-03-13 08:37] LABS: ALKALINE PHOSPHATASE 137 U/L (38-126); AST/SGOT 81 U/L (17-59); BILIRUBIN,TOTAL 1.1 mg/dL (0.2-1.3); GFR AFRICAN-AMERICAN > 60; TOTAL PROTEIN 5.3 g/dL (6.3-8.3)
[2017-03-13 08:38] LABS: ALT/SGPT 81 U/L (21-72); BLOOD UREA NITROGEN 18 mg/dL (9-20); GLUCOSE,RANDOM 157 mg/dL (75-110)
[2017-03-13 09:03] LABS: NEUTROPHIL 98 % (50-75); TOTAL CELLS COUNTED 100
[2017-03-13 09:05] LABS: GIANT PLATELETS PRESENT
[2017-03-13 09:09] LABS: CARBON DIOXIDE 43 mmol/L (22-30)
[2017-03-13] MEDS ORDERED: Potassium Chloride 20 mEq ER Tab PO ONE ×2 (10:15→18:42)
[2017-03-13] MEDS: Multiple Vitamins Tab PO SCH (10:31)
[2017-03-13] MEDS: Potassium Chloride 20 mEq ER Tab PO SCH (10:31)
[2017-03-13] MEDS: Emtricitabine-Tenofovir 200 mg-300 mg Tab PO SCH (10:33)
[2017-03-13] MEDS: MethylPREDNISolone 40 mg Vial IVP SCH ×2 (10:50→22:01)
[2017-03-13] MEDS: Enoxaparin 40 mg Syringe SC SCH (10:50)
[2017-03-13 12:20] LABS: ABG MECHANICAL RATE 14; ARTERIAL BLOOD HGB O2 SAT 92.8 % (95.0-98.0); CARBOXYHEMOGLOBIN 2.1 % (0.5-1.5); DRAW SITE L/B; HHB 4.3 % (0.0-5.0); METHEMOGLOBIN 0.8 % (0.0-3.0)
--- NOTE | 2017-03-13 13:25 | RAD ---
Chest x-ray single frontal view History: Shortness of breath. Leukocytosis. Comparison: 03/08/2017 Findings: Right chest wall port with tip extending into the right atrium. Prominent diffuse increased interstitial lung markings suggestive for edema and or infiltrate. Confluent consolidative changes seen within the right hilar region as well as at the left lung base. Dense consolidative opacities in the left mid to lower lung zone. Horizontally oriented linear atelectasis in the right midlung zone with additional vertically oriented linear atelectasis the left lung base. Scattered nodularity throughout both lungs. Biapical pleural thickening with upper lobe granulomatous changes. Status post median sternotomy. Cardiomegaly. Surgical clips in the upper abdomen. Degenerative changes in the spine and shoulders. Postsurgical changes of the right proximal humerus. Impression: Right chest wall port with tip extending into the right atrium. Prominent diffuse increased interstitial lung markings suggestive for edema and or infiltrate. Confluent consolidative changes seen within the right hilar region as well as at the left lung base. Dense consolidative opacities in the left mid to lower lung zone. Horizontally oriented linear atelectasis in the right midlung zone with additional vertically oriented linear atelectasis the left lung base. Scattered nodularity throughout both lungs. Biapical pleural thickening with upper lobe granulomatous changes. Status post median sternotomy. Cardiomegaly.
[2017-03-14] MEDS: Moxifloxacin IV 400mg/250ml NS 400 MG/250 ML BAG IVPB SCH (00:17)
[2017-03-14] MEDS: Albuterol-Ipratrop 3 mg / 0.5 (3 ml) UD INH SCH ×5 (03:12→19:18)
[2017-03-14 07:41] LABS: BASO % 0.2 % (0.0-2.0); HEMATOCRIT 29.9 % (35.0-51.0); LYMPH # 0.1 K/uL (1.0-4.3); LYMPH % 0.6 % (20.0-40.0); MEAN CELL VOLUME 70.5 fL (80.0-94.0); MEAN CORPUSCULAR HEMOGLOBIN 20.5 pg (27.0-31.0); MEAN CORPUSCULAR HGB CONC 29.1 g/dL (33.0-37.0); MEAN PLATELET VOLUME 8.8 fL (7.2-11.7); MONO # 0.3 K/uL (0.0-0.8); MONO % 1.6 % (0.0-10.0); NRBC % 0.1 % (0.0-2.0); PLATELET COUNT 100 K/uL (130-400); RED CELL DISTRIBUTION WIDTH 25.3 % (11.5-14.5); WHITE BLOOD COUNT 17.2 K/uL (4.8-10.8)
[2017-03-14] MEDS: (Novolog) Insulin Aspart, Recombinant 100 u/ml 10 ml vial SC SCH ×4 (08:15→21:11)
[2017-03-14 08:18] LABS: ALB/GLOB RATIO 0.8 (1.0-2.1); ALKALINE PHOSPHATASE 155 U/L (38-126); ALT/SGPT 94 U/L (21-72); AST/SGOT 95 U/L (17-59); BLOOD UREA NITROGEN 23 mg/dL (9-20); CHLORIDE 92 mmol/L (98-107); GFR AFRICAN-AMERICAN > 60; GLUCOSE,RANDOM 153 mg/dL (75-110); POTASSIUM 2.8 mmol/L (3.6-5.2); SODIUM 141 mmol/L (132-148); TOTAL PROTEIN 5.3 g/dL (6.3-8.3)
[2017-03-14 08:40] LABS: CARBON DIOXIDE 42 mmol/L (22-30)
[2017-03-14 09:35] LABS: TOTAL CELLS COUNTED 100
[2017-03-14 09:36] LABS: NEUTROPHIL 97 % (50-75)
[2017-03-14] MEDS: Emtricitabine-Tenofovir 200 mg-300 mg Tab PO SCH (10:20)
[2017-03-14] MEDS: Multiple Vitamins Tab PO SCH (10:20)
[2017-03-14] MEDS: Potassium Chloride 20 mEq ER Tab PO SCH (10:20)
[2017-03-14] MEDS: MethylPREDNISolone 40 mg Vial IVP SCH ×2 (10:30→21:04)
[2017-03-14] MEDS: Enoxaparin 40 mg Syringe SC SCH (10:30)
[2017-03-14 10:35] LABS: MAGNESIUM 1.9 mg/dL (1.6-2.3)
--- NOTE | 2017-03-14 12:40 | CP.PCM.PN ---
Subjective - Date & Time of Evaluation Date of Evaluation: 03/14/17 Time of Evaluation: 12:39 - Subjective Subjective: patient seen and examined. Rec follow up with dr. thomas at [phone] for possible trach at [facility]. Objective - Vital Signs/Intake and Output Vital Signs (last 24 hours): Temp Pulse Resp BP Pulse Ox 99.5 F 70 20 114/57 L 95 03/14/17 09:06 03/14/17 11:05 03/14/17 09:06 03/14/17 09:06 03/14/17 09:06 Intake and Output: 03/14/17 03/14/17 06:59 18:59 Intake Total 350 Output Total 900 Balance -550 - Medications Medications: Current Medications Acetaminophen (Tylenol 325mg Tab) 650 mg PO Q6H PRN PRN Reason: Fever >100.4 F Last Admin: 03/10/17 12:42 Dose: 650 mg Albuterol/Ipratropium (Duoneb 3 Mg/0.5 Mg (3 Ml) Ud) 3 ml INH RQ4 COUNTS INCLUDE 234 BEDS AT THE [facility] Last Admin: 03/14/17 07:48 Dose: 3 ml Benztropine Mesylate (Cogentin) 1 mg PO BID [facility]S INCLUDE 234 BEDS AT THE [facility] Last Admin: 03/14/17 10:20 Dose: Not Given Emtricitabine/Tenofovir (Truvada 200 Mg-300 Mg) 1 tab PO DAILY [facility]CLUDE 234 BEDS AT THE [facility] Last Admin: 03/14/17 10:20 Dose: Not Given Enoxaparin Sodium (Lovenox) 40 mg SC DAILY [facility]CLUDE 234 BEDS AT THE [facility] Last Admin: 03/13/17 10:50 Dose: 40 mg Famotidine (Pepcid) 20 mg PO DAILY [facility]CLUDE 234 BEDS AT THE [facility] Last Admin: 03/14/17 10:20 Dose: Not Given Ferrous Sulfate (Feosol) 325 mg PO DAILY [facility]CLUDE 234 BEDS AT THE [facility] Last Admin: 03/14/17 10:20 Dose: Not Given Fluphenazine HCl (Prolixin) 5 mg PO BID [facility]S [facility]CLUDE 234 BEDS AT [facility] Last Admin: 03/14/17 10:20 Dose: Not Given Furosemide (Lasix) 20 mg PO DAILY [facility]CLUDE 234 BEDS AT [facility] Last Admin: 03/14/17 10:20 Dose: Not Given Hydroxyzine HCl (Atarax) 25 mg PO Q6 PRN PRN Reason: Itching / Pruritus Moxifloxacin HCl (Avelox Iv 400mg/250ml Ns) 400 mg in 250 mls @ 167 mls/hr IVPB Q24H COUNTS INCLUDE 234 BEDS AT THE [facility] Last Admin: 03/14/17 00:17 Dose: 167 mls/hr Potassium Chloride (Potassium Chloride 20 Meq/100 Ml) 20 meq in 100 mls @ 50 mls/hr IVPB Q2 COUNTS INCLUDE 234 BEDS AT THE [facility] Stop: 03/14/17 15:59 Last Admin: 03/14/17 10:20 Dose: 50 mls/hr Insulin Aspart (Novolog) 0 unit SC ACHS [facility]S INCLUDE 234 BEDS AT THE [facility] PRN Reason: Protocol Last Admin: 03/14/17 08:15 Dose: 2 unit Methylprednisolone (Solu-Medrol) 40 mg IVP Q12 COUNTS INCLUDE 234 BEDS AT THE [facility] Last Admin: 03/14/17 10:30 Dose: 40 mg Metoprolol Tartrate (Lopressor) 25 mg PO BID [facility]S INCLUDE 234 BEDS AT [facility] Last Admin: 03/14/17 10:20 Dose: Not Given Montelukast Sodium (Singulair) 10 mg PO HS COUNTS INCLUDE 234 BEDS AT THE [facility] Last Admin: 03/13/17 22:00 Dose: Not Given Multivitamins (Hexavitamin) 1 tab PO DAILY [facility]S INCLUDE 234 BEDS AT [facility] Last Admin: 03/14/17 10:20 Dose: Not Given Potassium Chloride (K-Dur 20 Meq Er Tab) 20 meq PO DAILY COUNTS INCLUDE 234 BEDS AT [facility] Last Admin: 03/14/17 10:20 Dose: Not Given Raltegravir (Isentress) 400 mg PO BID COUNTS INCLUDE 234 BEDS AT [facility] Last Admin: 03/14/17 10:20 Dose: Not Given Rosuvastatin Calcium (Crestor) 20 mg PO HS COUNTS INCLUDE 234 BEDS AT [facility] Last Admin: 03/13/17 22:00 Dose: Not Given Senna/Docusate Sodium (Senokot S 50 Mg-8.6 Mg) 1 tab PO HS PRN PRN Reason: Constipation Sertraline HCl (Zoloft) 50 mg PO DAILY [facility]CLUDE 234 BEDS AT [facility] Last Admin: 03/14/17 10:20 Dose: Not Given Trazodone HCl (Desyrel) 50 mg PO [facility] Last Admin: 03/13/17 22:00 Dose: Not Given - Labs Labs: 03/14/17 07:26 03/14/17 07:28
--- NOTE | 2017-03-14 14:55 | CP.PCM.PN ---
Subjective - Date & Time of Evaluation Date of Evaluation: 03/14/17 Time of Evaluation: 07:30 - Subjective Subjective: PGY-2 Resident Progress Note for Dr. Stanley: Patient seen and examined at bedside. Nursing staff reports patient has been refusing medications and has not been eating much. Patient is currently on BIPAP. Patient is still lethargic but seems to have improved since yesterday. Unable to obtain further ROS due to lack of cooperation. Objective - Vital Signs/Intake and Output Vital Signs (last 24 hours): Temp Pulse Resp BP Pulse Ox 99.5 F 70 20 114/57 L 95 03/14/17 09:06 03/14/17 13:26 03/14/17 09:06 03/14/17 09:06 03/14/17 09:06 Intake and Output: 03/14/17 03/14/17 06:59 18:59 Intake Total 350 Output Total 900 Balance -550 - Medications Medications: Current Medications Acetaminophen (Tylenol 325mg Tab) 650 mg PO Q6H PRN PRN Reason: Fever >100.4 F Last Admin: 03/10/17 12:42 Dose: 650 mg Albuterol/Ipratropium (Duoneb 3 Mg/0.5 Mg (3 Ml) Ud) 3 ml INH RQ4 [facility] Last Admin: 03/14/17 13:29 Dose: 3 ml Benztropine Mesylate (Cogentin) 1 mg PO BID [facility] Last Admin: 03/14/17 10:20 Dose: Not Given Emtricitabine/Tenofovir (Truvada 200 Mg-300 Mg) 1 tab PO DAILY [facility] Last Admin: 03/14/17 10:20 Dose: Not Given Enoxaparin Sodium (Lovenox) 40 mg SC DAILY [facility] Last Admin: 03/14/17 10:30 Dose: 40 mg Famotidine (Pepcid) 20 mg PO DAILY [facility] Last Admin: 03/14/17 10:20 Dose: Not Given Ferrous Sulfate (Feosol) 325 mg PO DAILY [facility] Last Admin: 03/14/17 10:20 Dose: Not Given Fluphenazine HCl (Prolixin) 5 mg PO BID [facility] Last Admin: 03/14/17 10:20 Dose: Not Given Furosemide (Lasix) 20 mg PO DAILY [facility] Last Admin: 03/14/17 10:20 Dose: Not Given Hydroxyzine HCl (Atarax) 25 mg PO Q6 PRN PRN Reason: Itching / Pruritus Moxifloxacin HCl (Avelox Iv 400mg/250ml Ns) 400 mg in 250 mls @ 167 mls/hr IVPB Q24H [facility] Last Admin: 03/14/17 00:17 Dose: 167 mls/hr Potassium Chloride (Potassium Chloride 20 Meq/100 Ml) 20 meq in 100 mls @ 50 mls/hr IVPB Q2 [facility] Stop: 03/14/17 15:59 Last Admin: 03/14/17 10:20 Dose: 50 mls/hr Insulin Aspart (Novolog) 0 unit SC ACHS [facility] PRN Reason: Protocol Last Admin: 03/14/17 12:15 Dose: 2 unit Methylprednisolone (Solu-Medrol) 40 mg IVP Q12 [facility] Last Admin: 03/14/17 10:30 Dose: 40 mg Metoprolol Tartrate (Lopressor) 25 mg PO BID [facility] Last Admin: 03/14/17 10:20 Dose: Not Given Montelukast Sodium (Singulair) 10 mg PO HS [facility] Last Admin: 03/13/17 22:00 Dose: Not Given Multivitamins (Hexavitamin) 1 tab PO DAILY [facility] Last Admin: 03/14/17 10:20 Dose: Not Given Potassium Chloride (K-Dur 20 Meq Er Tab) 20 meq PO DAILY [facility] Last Admin: 03/14/17 10:20 Dose: Not Given Raltegravir (Isentress) 400 mg PO BID [facility] Last Admin: 03/14/17 10:20 Dose: Not Given Rosuvastatin Calcium (Crestor) 20 mg PO HS [facility] Last Admin: 03/13/17 22:00 Dose: Not Given Senna/Docusate Sodium (Senokot S 50 Mg-8.6 Mg) 1 tab PO HS PRN PRN Reason: Constipation Sertraline HCl (Zoloft) 50 mg PO DAILY [facility] Last Admin: 03/14/17 10:20 Dose: Not Given Trazodone HCl (Desyrel) 50 mg PO HS [facility] Last Admin: 03/13/17 22:00 Dose: Not Given - Labs Labs: 03/14/17 07:26 03/14/17 07:28 - Constitutional Appears: Non-toxic, No Acute Distress, Chronically Ill - Head Exam Head Exam: ATRAUMATIC, NORMAL INSPECTION - Eye Exam Eye Exam: EOMI - Neck Exam Neck Exam: absent: Tenderness - Respiratory Exam Respiratory Exam: Decreased Breath Sounds. absent: Accessory Muscle Use, Respiratory Distress Additional comments: On BIPAP - Cardiovascular Exam Cardiovascular Exam: REGULAR RHYTHM, +S1, +S2 - GI/Abdominal Exam GI & Abdominal Exam: Soft, Normal Bowel Sounds. absent: Distended, Firm, Guarding, Tenderness Additional comments: obese - Extremities Exam Extremities Exam: Normal Inspection (edema) - Back Exam Back Exam: NORMAL INSPECTION. absent: CVA tenderness (L), CVA tenderness (R), paraspinal tenderness - Neurological Exam Neurological Exam: Alert, Awake - Psychiatric Exam Psychiatric exam: Normal Affect, Normal Mood - Skin Skin Exam: Dry, Intact, Normal Color, Warm Assessment and Plan - Assessment and Plan (Free Text) Assessment: Dyspnea Continue BIPAP, patient is retaining CO2 but is compensating Dr. Kilpatrick consulted for possible trach placement Repeat ABG, CXR pending Secondary to COPD v. CHF v. Lung CA v. Pneumonia Elevated bicarb at 40 this morning, likely secondary to CO2 retention 03/09 ABG: pH 7.52/ CO2 64/ O2 62/ HCO3 44.3 CXR 02/25/17 -> small right greater than left pleural effusions, right sided cv cathether, median sternotomy wires,; patchy airspace opacity at the right lung base; cardiomegaly Repeat CXR pending BNP 60070 Afebrile, no leukocytosis Avelox 200mg IVPB Q24 (started 03/09) Lopressor 25 mg PO BID [facility] Solumedrol 40mg IVP Q12 [facility] tapering Lasix 20mg PO daily Duoneb Q4 [facility] KCL 20meq PO HS Crestor 20mg PO HS Tylenol prn Hypokalemia Potassium 2.8 today KCL IV ordered x 3 bags f/u repeat K level Mg wnl Monitor daily, supplement as needed Microcytic Anemia Secondary to chronic disease v. iron deficiency Hgb 8.67 - chronic Feosol 325mg PO daily Obstructive Sleep Apnea BiPAP ordered for night time use- patient should go to [facility] with BIPAP History of COPD Well controlled with O2 nasal cannula and BIPAP Duoneb 3ml INH RQ4 PRN wheezing Solu-Medrol 40mg IVP Q12H Singulair 10mg PO daily History of HIV Truvada 1 tab PO daily (home med) Isentress 400mg PO BID (home med) History of critical aortic stenosis F/U ECHO Lopressor 25mg PO BID Crestor 20mg PO HS Prophylaxis Pepcid 20mg PO daily Lovenox 40mg SC daily Zoloft 50mg PO daily Trazodone 50mg PO HS All management per Dr. Stanley
--- NOTE | 2017-03-14 23:17 | CON ---
DATE: 03/14/2017 REQUESTING PHYSICIAN: Dr. Stanley. HISTORY OF PRESENT ILLNESS: This is a 66-year-old male with COPD and obstructive sleep apnea who is being maintained on high O2. I was called to evaluate the patient for possible tracheostomy. PAST MEDICAL HISTORY: As noted in the chart by me. MEDICATIONS: As noted in the chart by me. PHYSICAL EXAMINATION: HEAD: Atraumatic, normocephalic. FACE: Good facial movements bilaterally. CONSTITUTIONAL: Well fed, well nourished. COMMUNICATION: Communicates appropriately. EXTERNAL NOSE: No masses. No lesions. No erythema. No edema. INTERNAL NOSE: Deviated septum. No masses. No lesions. No erythema. No edema. ORAL CAVITY AND OROPHARYNX: Large tongue. No masses. No lesions. No erythema. No edema. NECK: Supple. THYROID: No thyromegaly, no goiter. LYMPH NODES: No lymphadenopathy of the neck. ASSESSMENT: 1. Obstructive sleep apnea. 2. Chronic obstructive pulmonary disease. Due to the fact that the patient is very difficult intubation, the patient would need to have fully awake fiberoptic intubation done. The patient cannot be given any sedation since he has obstructive sleep apnea. If any sedation is given, it will decrease his respiratory drive and his CO2 will drop very rapidly and need to be compensated rapidly. I believe that because he is at high risk intubation, this should be done at [facility]. I will write the name of the physician at [facility] who can do the tracheostomy, mostly the anesthesiologist do have more experience in doing fully awake fiberoptic intubation and I believe that the patient will benefit from that, so that it would minimize the risk of complication. Doctor's name is Dr. Castillo. Her number is [phone]. Cecil Kilpatrick MD
[2017-03-15] MEDS: Moxifloxacin IV 400mg/250ml NS 400 MG/250 ML BAG IVPB SCH (00:50)
[2017-03-15] MEDS: Albuterol-Ipratrop 3 mg / 0.5 (3 ml) UD INH SCH ×6 (01:13→19:19)
[2017-03-15 06:15] LABS: MEAN CORPUSCULAR HEMOGLOBIN 20.6 pg (27.0-31.0); MEAN PLATELET VOLUME 8.5 fL (7.2-11.7); MONO # 0.2 K/uL (0.0-0.8)
[2017-03-15 06:26] LABS: ALKALINE PHOSPHATASE 162 U/L (38-126); ALT/SGPT 131 U/L (21-72); AST/SGOT 103 U/L (17-59); BILIRUBIN,TOTAL 0.9 mg/dL (0.2-1.3); BLOOD UREA NITROGEN 24 mg/dL (9-20); CALCIUM 6.7 mg/dl (8.6-10.4); CARBON DIOXIDE 36 mmol/L (22-30); CHLORIDE 91 mmol/L (98-107); GFR AFRICAN-AMERICAN > 60; GLUCOSE,RANDOM 160 mg/dL (75-110); MAGNESIUM 1.9 mg/dL (1.6-2.3); PHOSPHOROUS 1.8 mg/dL (2.5-4.5); POTASSIUM 3.3 mmol/L (3.6-5.2); SODIUM 134 mmol/L (132-148); TOTAL PROTEIN 4.9 g/dL (6.3-8.3)
[2017-03-15 07:00] LABS: BASO % 0.2 % (0.0-2.0); HEMATOCRIT 29.1 % (35.0-51.0); LYMPH # 0.1 K/uL (1.0-4.3); LYMPH % 0.8 % (20.0-40.0); MEAN CELL VOLUME 70.4 fL (80.0-94.0); MEAN CORPUSCULAR HGB CONC 29.3 g/dL (33.0-37.0); MONO % 1.4 % (0.0-10.0); PLATELET COUNT 87 K/uL (130-400); RED CELL DISTRIBUTION WIDTH 25.3 % (11.5-14.5); WHITE BLOOD COUNT 14.4 K/uL (4.8-10.8)
[2017-03-15 08:34] LABS: NEUTROPHIL 96 % (50-75); TOTAL CELLS COUNTED 100
[2017-03-15] MEDS: (Novolog) Insulin Aspart, Recombinant 100 u/ml 10 ml vial SC SCH ×4 (09:39→21:39)
[2017-03-15] MEDS: Multiple Vitamins Tab PO SCH (09:47)
[2017-03-15] MEDS: Potassium Chloride 20 mEq ER Tab PO SCH (09:47)
[2017-03-15] MEDS: Enoxaparin 40 mg Syringe SC SCH (09:47)
[2017-03-15] MEDS: Emtricitabine-Tenofovir 200 mg-300 mg Tab PO SCH (09:49)
[2017-03-15] MEDS: MethylPREDNISolone 40 mg Vial IVP SCH ×2 (11:13→21:40)
--- NOTE | 2017-03-15 11:21 | CP.PCM.PN ---
Subjective - Date & Time of Evaluation Date of Evaluation: 03/15/17 Time of Evaluation: 07:25 - Subjective Subjective: PGY-2 Resident Progress Note for Dr. Stanley Patient seen and examined at bedside. No acute events overnight. Patient's mentation improved and is tolerating PO intake well. Patient denies fever, chills, chest pain, abdominal pain, nausea, vomiting or diarrhea. Objective - Vital Signs/Intake and Output Vital Signs (last 24 hours): Temp Pulse Resp BP Pulse Ox 98.2 F 70 20 119/67 98 03/15/17 07:00 03/15/17 07:00 03/15/17 07:00 03/15/17 09:47 03/15/17 07:00 Intake and Output: 03/15/17 03/15/17 06:59 18:59 Intake Total 550 Output Total 800 Balance -250 - Medications Medications: Current Medications Acetaminophen (Tylenol 325mg Tab) 650 mg PO Q6H PRN PRN Reason: Fever >100.4 F Last Admin: 03/10/17 12:42 Dose: 650 mg Albuterol/Ipratropium (Duoneb 3 Mg/0.5 Mg (3 Ml) Ud) 3 ml INH RQ4 [facility] Last Admin: 03/15/17 11:03 Dose: 3 ml Benztropine Mesylate (Cogentin) 1 mg PO BID [facility] Last Admin: 03/15/17 09:48 Dose: 1 mg Emtricitabine/Tenofovir (Truvada 200 Mg-300 Mg) 1 tab PO DAILY [facility] Last Admin: 03/15/17 09:49 Dose: 1 tab Famotidine (Pepcid) 20 mg PO DAILY [facility] Last Admin: 03/15/17 09:50 Dose: 20 mg Ferrous Sulfate (Feosol) 325 mg PO DAILY [facility] Last Admin: 03/15/17 09:47 Dose: 325 mg Fluphenazine HCl (Prolixin) 5 mg PO BID [facility] Last Admin: 03/15/17 09:49 Dose: 5 mg Furosemide (Lasix) 20 mg PO DAILY [facility] Last Admin: 03/15/17 09:47 Dose: 20 mg Hydroxyzine HCl (Atarax) 25 mg PO Q6 PRN PRN Reason: Itching / Pruritus Moxifloxacin HCl (Avelox Iv 400mg/250ml Ns) 400 mg in 250 mls @ 167 mls/hr IVPB Q24H [facility] Last Admin: 03/15/17 00:50 Dose: 167 mls/hr Insulin Aspart (Novolog) 0 unit SC ACHS [facility] PRN Reason: Protocol Last Admin: 03/15/17 09:39 Dose: 2 unit Methylprednisolone (Solu-Medrol) 40 mg IVP Q12 [facility] Last Admin: 03/15/17 11:13 Dose: 40 mg Metoprolol Tartrate (Lopressor) 25 mg PO BID [facility] Last Admin: 03/15/17 09:47 Dose: 25 mg Montelukast Sodium (Singulair) 10 mg PO [facility] Last Admin: 03/14/17 21:04 Dose: 10 mg Multivitamins (Hexavitamin) 1 tab PO DAILY [facility] Last Admin: 03/15/17 09:47 Dose: 1 tab Potassium Chloride (K-Dur 20 Meq Er Tab) 20 meq PO DAILY [facility] Last Admin: 03/15/17 09:47 Dose: 20 meq Raltegravir (Isentress) 400 mg PO BID [facility] Last Admin: 03/15/17 09:49 Dose: 400 mg Rosuvastatin Calcium (Crestor) 20 mg PO [facility] Last Admin: 03/14/17 21:04 Dose: 20 mg Senna/Docusate Sodium (Senokot S 50 Mg-8.6 Mg) 1 tab PO PRN PRN Reason: Constipation Sertraline HCl (Zoloft) 50 mg PO DAILY [facility] Last Admin: 03/15/17 09:47 Dose: 50 mg Trazodone HCl (Desyrel) 50 mg PO [facility] Last Admin: 03/14/17 21:04 Dose: 50 mg - Labs Labs: 03/15/17 06:02 03/15/17 06:02 - Constitutional Appears: Non-toxic, No Acute Distress, Chronically Ill - Head Exam Head Exam: ATRAUMATIC, NORMAL INSPECTION - Eye Exam Eye Exam: Normal appearance - ENT Exam ENT Exam: Mucous Membranes Moist - Neck Exam Neck Exam: Normal Inspection - Respiratory Exam Respiratory Exam: NORMAL BREATHING PATTERN. absent: Respiratory Distress Additional comments: current on BIPAP - Cardiovascular Exam Cardiovascular Exam: REGULAR RHYTHM, +S1, +S2 - GI/Abdominal Exam GI & Abdominal Exam: Soft, Normal Bowel Sounds. absent: Tenderness - Extremities Exam Extremities Exam: Pedal Edema - Neurological Exam Neurological Exam: Alert, Awake, Oriented x3 - Psychiatric Exam Psychiatric exam: Normal Affect, Normal Mood - Skin Skin Exam: Dry, Warm Assessment and Plan - Assessment and Plan (Free Text) Assessment: Dyspnea Continue BIPAP, patient's CO2 retention is improving Will plan to wean patient off BIPAP during daytime Hold off on trach, patient oral intake is improving Repeat ABG, CXR pending Secondary to COPD v. CHF v. Lung CA v. Pneumonia 03/13 ABG: pH 7.52/ CO2 61/O2 64/HCO3 43.7 CXR 02/25/17: small right greater than left pleural effusions, right sided cv cathether, median sternotomy wires,; patchy airspace opacity at the right lung base; cardiomegaly BNP 32956 Leukocytosis improving Avelox 200mg IVPB Q24 (started 03/09) Lopressor 25 mg PO BID [facility] Solumedrol 40mg IVP Q12 [facility] tapering Lasix 20mg PO daily Duoneb Q4 [facility] KCL 20meq PO HS Crestor 20mg PO HS Tylenol prn Hypokalemia Potassium 3.3 today KCL IV given Monitor daily, supplement as needed Microcytic Anemia Secondary to chronic disease v. iron deficiency Hgb 8.67 - chronic Feosol 325mg PO daily Obstructive Sleep Apnea BiPAP ordered for night time use- patient [facility] go to [facility] with BIPAP History of COPD Well controlled with O2 nasal cannula and BIPAP Duoneb 3ml INH RQ4 PRN wheezing Solu-Medrol 40mg IVP Q12H Singulair 10mg PO daily History of HIV Truvada 1 tab PO daily (home med) Isentress 400mg PO BID (home med) History of critical aortic stenosis F/U ECHO Lopressor 25mg PO BID Crestor 20mg PO HS Prophylaxis Pepcid 20mg PO daily Lovenox 40mg SC daily Zoloft 50mg PO daily Trazodone 50mg PO HS Possible exterminator helper assisted care placement All management per Dr. Stanley
[2017-03-15] MEDS: Docusate-Senna 50 mg-8.6 mg Tab PO PRN (21:40)
[2017-03-16] MEDS: Albuterol-Ipratrop 3 mg / 0.5 (3 ml) UD INH SCH ×7 (00:10→23:34)
[2017-03-16] MEDS: Moxifloxacin IV 400mg/250ml NS 400 MG/250 ML BAG IVPB SCH (00:55)
[2017-03-16 06:55] LABS: HEMATOCRIT 30.5 % (35.0-51.0); LYMPH # 0.1 K/uL (1.0-4.3); MEAN CELL VOLUME 71.4 fL (80.0-94.0); MONO # 0.3 K/uL (0.0-0.8)
[2017-03-16 07:03] LABS: ALKALINE PHOSPHATASE 168 U/L (38-126); ALT/SGPT 142 U/L (21-72); AST/SGOT 81 U/L (17-59); BILIRUBIN,TOTAL 0.6 mg/dL (0.2-1.3); BLOOD UREA NITROGEN 26 mg/dL (9-20); CALCIUM 6.9 mg/dl (8.6-10.4); CHLORIDE 91 mmol/L (98-107); GFR AFRICAN-AMERICAN > 60; GLUCOSE,RANDOM 189 mg/dL (75-110); PHOSPHOROUS 2.3 mg/dL (2.5-4.5); POTASSIUM 3.6 mmol/L (3.6-5.2); SODIUM 138 mmol/L (132-148); TOTAL PROTEIN 5.2 g/dL (6.3-8.3)
[2017-03-16 07:13] LABS: BASO % 0.1 % (0.0-2.0); LYMPH % 0.8 % (20.0-40.0); MEAN CORPUSCULAR HEMOGLOBIN 20.6 pg (27.0-31.0); MEAN CORPUSCULAR HGB CONC 28.8 g/dL (33.0-37.0); MEAN PLATELET VOLUME 8.6 fL (7.2-11.7); MONO % 2.6 % (0.0-10.0); NRBC % 0.1 % (0.0-2.0); RED CELL DISTRIBUTION WIDTH 27.2 % (11.5-14.5); WHITE BLOOD COUNT 12.5 K/uL (4.8-10.8)
[2017-03-16 07:16] LABS: PLATELET COUNT 87 K/uL (130-400)
[2017-03-16 07:19] LABS: CARBON DIOXIDE 41 mmol/L (22-30)
[2017-03-16] MEDS: (Novolog) Insulin Aspart, Recombinant 100 u/ml 10 ml vial SC SCH ×4 (08:00→22:33)
[2017-03-16 09:05] LABS: NEUTROPHIL 91 % (50-75); TOTAL CELLS COUNTED 100
[2017-03-16] MEDS: Multiple Vitamins Tab PO SCH (10:43)
[2017-03-16] MEDS: Potassium Chloride 20 mEq ER Tab PO SCH (10:46)
[2017-03-16] MEDS: MethylPREDNISolone 40 mg Vial IVP SCH ×2 (10:47→22:35)
[2017-03-16] MEDS: Emtricitabine-Tenofovir 200 mg-300 mg Tab PO SCH (10:48)
[2017-03-17] MEDS: Moxifloxacin IV 400mg/250ml NS 400 MG/250 ML BAG IVPB SCH (00:33)
[2017-03-17] MEDS: Albuterol-Ipratrop 3 mg / 0.5 (3 ml) UD INH SCH ×5 (03:25→19:48)
[2017-03-17 07:40] LABS: HEMATOCRIT 30.1 % (35.0-51.0); LYMPH # 0.1 K/uL (1.0-4.3); LYMPH % 1.5 % (20.0-40.0); MEAN CELL VOLUME 71.2 fL (80.0-94.0); MEAN CORPUSCULAR HEMOGLOBIN 21.1 pg (27.0-31.0); MEAN CORPUSCULAR HGB CONC 29.6 g/dL (33.0-37.0); MEAN PLATELET VOLUME 8.6 fL (7.2-11.7); MONO # 0.3 K/uL (0.0-0.8); MONO % 3.1 % (0.0-10.0); PLATELET COUNT 82 K/uL (130-400); WHITE BLOOD COUNT 9.7 K/uL (4.8-10.8)
[2017-03-17 07:52] LABS: ALB/GLOB RATIO 0.9 (1.0-2.1); ALKALINE PHOSPHATASE 144 U/L (38-126); ALT/SGPT 114 U/L (21-72); AST/SGOT 61 U/L (17-59); BILIRUBIN,TOTAL 0.6 mg/dL (0.2-1.3); BLOOD UREA NITROGEN 23 mg/dL (9-20); CALCIUM 7.4 mg/dl (8.6-10.4); CHLORIDE 92 mmol/L (98-107); GFR AFRICAN-AMERICAN > 60; GLUCOSE,RANDOM 157 mg/dL (75-110); PHOSPHOROUS 1.5 mg/dL (2.5-4.5); POTASSIUM 3.2 mmol/L (3.6-5.2); SODIUM 137 mmol/L (132-148); TOTAL PROTEIN 4.9 g/dL (6.3-8.3)
[2017-03-17] MEDS: (Novolog) Insulin Aspart, Recombinant 100 u/ml 10 ml vial SC SCH ×4 (08:12→22:47)
[2017-03-17 08:17] LABS: CARBON DIOXIDE 42 mmol/L (22-30)
[2017-03-17] MEDS: Multiple Vitamins Tab PO SCH (10:39)
[2017-03-17] MEDS: MethylPREDNISolone 40 mg Vial IVP SCH ×2 (10:39→21:54)
[2017-03-17] MEDS: Potassium Chloride 20 mEq ER Tab PO SCH (10:40)
[2017-03-17] MEDS: Emtricitabine-Tenofovir 200 mg-300 mg Tab PO SCH (10:42)
[2017-03-17 11:15] LABS: TOTAL CELLS COUNTED 100
[2017-03-17 11:16] LABS: NEUTROPHIL 97 % (50-75)
[2017-03-18] MEDS: Albuterol-Ipratrop 3 mg / 0.5 (3 ml) UD INH SCH ×3 (00:05→07:36)
[2017-03-18] MEDS: Moxifloxacin IV 400mg/250ml NS 400 MG/250 ML BAG IVPB SCH (00:57)
[2017-03-18] MEDS: (Novolog) Insulin Aspart, Recombinant 100 u/ml 10 ml vial SC SCH ×4 (08:10→22:47)
[2017-03-18 08:15] LABS: CHLORIDE 93 mmol/L (98-107); SODIUM 136 mmol/L (132-148)
[2017-03-18 08:16] LABS: POTASSIUM 3.5 mmol/L (3.6-5.2)
[2017-03-18 08:17] LABS: GFR AFRICAN-AMERICAN > 60
[2017-03-18 08:18] LABS: ALB/GLOB RATIO 0.9 (1.0-2.1); ALKALINE PHOSPHATASE 155 U/L (38-126); ALT/SGPT 108 U/L (21-72); AST/SGOT 55 U/L (17-59); BILIRUBIN,TOTAL 0.8 mg/dL (0.2-1.3); BLOOD UREA NITROGEN 20 mg/dL (9-20); CALCIUM 7.3 mg/dl (8.6-10.4); CARBON DIOXIDE 39 mmol/L (22-30); GLUCOSE,RANDOM 156 mg/dL (75-110); PHOSPHOROUS 1.7 mg/dL (2.5-4.5); TOTAL PROTEIN 4.9 g/dL (6.3-8.3)
[2017-03-18 08:19] LABS: MAGNESIUM 1.7 mg/dL (1.6-2.3)
[2017-03-18 08:22] LABS: BASO % 0.2 % (0.0-2.0); HEMATOCRIT 30.8 % (35.0-51.0); LYMPH # 0.1 K/uL (1.0-4.3); LYMPH % 1.2 % (20.0-40.0); MEAN CELL VOLUME 71.9 fL (80.0-94.0); MEAN CORPUSCULAR HEMOGLOBIN 21.1 pg (27.0-31.0); MEAN CORPUSCULAR HGB CONC 29.4 g/dL (33.0-37.0); MEAN PLATELET VOLUME 8.5 fL (7.2-11.7); MONO # 0.2 K/uL (0.0-0.8); MONO % 1.7 % (0.0-10.0); NRBC % 0.1 % (0.0-2.0); RED CELL DISTRIBUTION WIDTH 28.3 % (11.5-14.5)
[2017-03-18 08:27] LABS: PLATELET COUNT 105 K/uL (130-400)
[2017-03-18 09:02] LABS: NEUTROPHIL 97 % (50-75); TOTAL CELLS COUNTED 100
--- NOTE | 2017-03-18 09:49 | CP.PCM.PN ---
Subjective - Date & Time of Evaluation Date of Evaluation: 03/18/17 Time of Evaluation: 09:49 - Subjective Subjective: Medicine Note for Dr. Stanley's Service Pt seen and examined at bedside. He is on BIPAP and appears uncomfortable/ having trouble breathing. He nods yes when asked if the BIPAP is helping him. He appears generally lethargic and weak. No acute events overnight. Patient was kept on BIPAP overnight. Objective - Vital Signs/Intake and Output Vital Signs (last 24 hours): Temp Pulse Resp BP Pulse Ox 98.3 F 65 18 119/56 L 97 03/18/17 07:25 03/18/17 08:00 03/18/17 07:25 03/18/17 07:25 03/18/17 07:25 Intake and Output: 03/18/17 03/18/17 06:59 18:59 Intake Total 200 Output Total 1050 Balance -850 - Medications Medications: Current Medications Acetaminophen (Tylenol 325mg Tab) 650 mg PO Q6H PRN PRN Reason: Fever >100.4 F Last Admin: 03/16/17 01:25 Dose: 650 mg Albuterol/Ipratropium (Duoneb 3 Mg/0.5 Mg (3 Ml) Ud) 3 ml INH RQ4 [facility] Last Admin: 03/18/17 07:36 Dose: 3 ml Benztropine Mesylate (Cogentin) 1 mg PO BID [facility] Last Admin: 03/17/17 18:24 Dose: 1 mg Emtricitabine/Tenofovir (Truvada 200 Mg-300 Mg) 1 tab PO DAILY [facility] Last Admin: 03/17/17 10:42 Dose: 1 tab Famotidine (Pepcid) 20 mg PO DAILY [facility] Last Admin: 03/17/17 10:40 Dose: 20 mg Ferrous Sulfate (Feosol) 325 mg PO DAILY [facility] Last Admin: 03/17/17 10:40 Dose: 325 mg Fluphenazine HCl (Prolixin) 5 mg PO BID [facility] Last Admin: 03/17/17 18:24 Dose: 5 mg Furosemide (Lasix) 20 mg PO DAILY [facility] Last Admin: 03/17/17 10:40 Dose: 20 mg Hydroxyzine HCl (Atarax) 25 mg PO Q6 PRN PRN Reason: Itching / Pruritus Last Admin: 03/17/17 10:42 Dose: 25 mg Moxifloxacin HCl (Avelox Iv 400mg/250ml Ns) 400 mg in 250 mls @ 167 mls/hr IVPB Q24H [facility] Last Admin: 03/18/17 00:57 Dose: 167 mls/hr Insulin Aspart (Novolog) 0 unit SC ACHS [facility] PRN Reason: Protocol Last Admin: 03/17/17 22:47 Dose: Not Given Methylprednisolone (Solu-Medrol) 40 mg IVP Q12 [facility] Last Admin: 03/17/17 21:54 Dose: 40 mg Metoprolol Tartrate (Lopressor) 25 mg PO BID [facility] Last Admin: 03/17/17 18:26 Dose: 25 mg Montelukast Sodium (Singulair) 10 mg PO HS [facility] Last Admin: 03/17/17 21:54 Dose: 10 mg Multivitamins (Hexavitamin) 1 tab PO DAILY [facility] Last Admin: 03/17/17 10:39 Dose: 1 tab Potassium Chloride (K-Dur 20 Meq Er Tab) 20 meq PO DAILY [facility] Last Admin: 03/17/17 10:40 Dose: 20 meq Raltegravir (Isentress) 400 mg PO BID [facility] Last Admin: 03/17/17 18:24 Dose: 400 mg Rosuvastatin Calcium (Crestor) 20 mg PO HS [facility] Last Admin: 03/17/17 21:54 Dose: 20 mg Senna/Docusate Sodium (Senokot S 50 Mg-8.6 Mg) 1 tab PO HS PRN PRN Reason: Constipation Last Admin: 03/15/17 21:40 Dose: 1 tab Sertraline HCl (Zoloft) 50 mg PO DAILY [facility] Last Admin: 03/17/17 10:40 Dose: 50 mg Trazodone HCl (Desyrel) 50 mg PO HS [facility] Last Admin: 03/17/17 21:54 Dose: 50 mg - Labs Labs: 03/18/17 07:56 03/18/17 07:56 - Constitutional Appears: Other (weak and lethargic with mild respiratory distress) - Head Exam Head Exam: ATRAUMATIC - Eye Exam Eye Exam: EOMI, Normal appearance - ENT Exam ENT Exam: Mucous Membranes Moist - Respiratory Exam Respiratory Exam: Wheezes, Respiratory Distress Additional comments: on BIPAP - Cardiovascular Exam Cardiovascular Exam: REGULAR RHYTHM - GI/Abdominal Exam GI & Abdominal Exam: Soft. absent: Tenderness - Neurological Exam Neurological Exam: Alert, Awake, Oriented x3 Assessment and Plan - Assessment and Plan (Free Text) Plan: Dyspnea- Secondary to COPD v. CHF v. Lung CA v. Pneumonia Pt continues to have difficulty breathing and is using BIPAP at night and while awake Continue BIPAP Will plan to wean patient off BIPAP when patient is better tolerating Holding off on trach Tolerating oral intake Repeat ABG on 03/13: PCO2/61, PO2/64, HCO3/43.7, pH/7.52- improved from previous ABG CXR 02/25/17: small right greater than left pleural effusions, right sided cv cathether, median sternotomy wires,; patchy airspace opacity at the right lung base; cardiomegaly CXR 03/13- see full report; R sided consolidation and congestion BNP 14689 Leukocytosis- now WNL- 9.0 Avelox 400mg IVPB Q24 (started 03/09) Lopressor 25 mg PO BID [facility] Solumedrol 40mg IVP Q12 [facility] tapering Lasix 20mg PO daily Duoneb Q4 [facility] KCL 20meq PO HS Crestor 20mg PO HS Tylenol prn Hypokalemia Potassium 3.5 today Continue with K-Rajwinder Monitor daily, supplement as needed Microcytic Anemia- chronic disease v. iron deficiency Hgb is stable- 9.1 today Feosol 325mg PO daily Obstructive Sleep Apnea BiPAP ordered for night time use- patient [facility] go [facility] with [facility] History of COPD Well controlled with O2 nasal cannula and BIPAP Duoneb 3ml INH RQ4 PRN wheezing Solu-Medrol 40mg IVP Q12H Singulair 10mg PO daily History of HIV Truvada 1 tab PO daily (home med) Isentress 400mg PO BID (home med) HTN Lopressor 25mg PO BID Previous Echo done on 02/26/17- EF 62% (see full report) HLD Crestor 20mg PO HS Prophylaxis Pepcid 20mg PO daily Lovenox 40mg SC daily Zoloft 50mg PO daily Trazodone 50mg PO HS Possible [facility] assisted care placement All management per Dr. Stanley
[2017-03-18] MEDS: MethylPREDNISolone 40 mg Vial IVP SCH ×2 (10:28→22:46)
[2017-03-18] MEDS: Multiple Vitamins Tab PO SCH (10:28)
[2017-03-18] MEDS: Emtricitabine-Tenofovir 200 mg-300 mg Tab PO SCH (10:29)
[2017-03-18] MEDS: Potassium Chloride 20 mEq ER Tab PO SCH (10:30)
[2017-03-19] MEDS: Moxifloxacin IV 400mg/250ml NS 400 MG/250 ML BAG IVPB SCH (00:19)
[2017-03-19 07:09] LABS: CHLORIDE 94 mmol/L (98-107)
[2017-03-19 07:10] LABS: POTASSIUM 3.7 mmol/L (3.6-5.2); SODIUM 137 mmol/L (132-148)
[2017-03-19 07:12] LABS: ALB/GLOB RATIO 0.9 (1.0-2.1); ALKALINE PHOSPHATASE 178 U/L (38-126); AST/SGOT 73 U/L (17-59); BILIRUBIN,TOTAL 1.1 mg/dL (0.2-1.3); BLOOD UREA NITROGEN 18 mg/dL (9-20); CARBON DIOXIDE 38 mmol/L (22-30); GFR AFRICAN-AMERICAN > 60; TOTAL PROTEIN 5.5 g/dL (6.3-8.3)
[2017-03-19 07:13] LABS: ALT/SGPT 119 U/L (21-72); CALCIUM 7.6 mg/dl (8.6-10.4); GLUCOSE,RANDOM 155 mg/dL (75-110)
[2017-03-19 07:19] LABS: BASO % 0.1 % (0.0-2.0); HEMATOCRIT 35.3 % (35.0-51.0); LYMPH # 0.1 K/uL (1.0-4.3); MEAN CELL VOLUME 71.5 fL (80.0-94.0); MEAN CORPUSCULAR HEMOGLOBIN 20.7 pg (27.0-31.0); MEAN CORPUSCULAR HGB CONC 28.9 g/dL (33.0-37.0); MEAN PLATELET VOLUME 8.6 fL (7.2-11.7); MONO # 0.1 K/uL (0.0-0.8); PLATELET COUNT 141 K/uL (130-400); WHITE BLOOD COUNT 11.4 K/uL (4.8-10.8)
[2017-03-19] MEDS: (Novolog) Insulin Aspart, Recombinant 100 u/ml 10 ml vial SC SCH ×4 (08:03→22:17)
--- NOTE | 2017-03-19 09:13 | CP.PCM.PN ---
Subjective - Date & Time of Evaluation Date of Evaluation: 03/19/17 Time of Evaluation: 09:13 - Subjective Subjective: Medicine Note for Dr. Stanley's Service Pt seen and examined at bedside. He has removed his BIPAP mask and is stable on room air. He states that he is "as well as can be". He admits that he continues to have shortness of breath and states that he would like to remain in the hospital for another day or so before returning to the assisted. He denies any acute changes, complaints; remaining review of systems were covered with him and he denied. As per nursing patient was confused overnight and needed to be reoriented. He would remove his mask several times despite needing BIPAP for respiratory assistance. Objective - Vital Signs/Intake and Output Vital Signs (last 24 hours): Temp Pulse Resp BP Pulse Ox 98.4 F 75 20 105/62 95 03/19/17 08:30 03/19/17 08:30 03/19/17 08:30 03/19/17 08:30 03/19/17 08:30 Intake and Output: 03/19/17 03/19/17 06:59 18:59 Intake Total 200 Output Total 900 Balance -700 - Medications Medications: Current Medications Acetaminophen (Tylenol 325mg Tab) 650 mg PO Q6H PRN PRN Reason: Fever >100.4 F Last Admin: 03/16/17 01:25 Dose: 650 mg Benztropine Mesylate (Cogentin) 1 mg PO BID [facility] Last Admin: 03/18/17 17:43 Dose: 1 mg Emtricitabine/Tenofovir (Truvada 200 Mg-300 Mg) 1 tab PO DAILY [facility] Last Admin: 03/18/17 10:29 Dose: 1 tab Famotidine (Pepcid) 20 mg PO DAILY [facility] Last Admin: 03/18/17 10:29 Dose: 20 mg Ferrous Sulfate (Feosol) 325 mg PO DAILY [facility] Last Admin: 03/18/17 10:28 Dose: 325 mg Fluphenazine HCl (Prolixin) 5 mg PO BID [facility] Last Admin: 03/18/17 17:40 Dose: 5 mg Furosemide (Lasix) 20 mg PO DAILY [facility] Last Admin: 03/18/17 10:29 Dose: 20 mg Hydroxyzine HCl (Atarax) 25 mg PO Q6 PRN PRN Reason: Itching / Pruritus Last Admin: 03/17/17 10:42 Dose: 25 mg Moxifloxacin HCl (Avelox Iv 400mg/250ml Ns) 400 mg in 250 mls @ 167 mls/hr IVPB Q24H [facility] Last Admin: 03/19/17 00:19 Dose: 167 mls/hr Insulin Aspart (Novolog) 0 unit SC ACHS [facility] PRN Reason: Protocol Last Admin: 03/19/17 08:03 Dose: 2 unit Methylprednisolone (Solu-Medrol) 40 mg IVP Q12 [facility] Last Admin: 03/18/17 22:46 Dose: 40 mg Metoprolol Tartrate (Lopressor) 25 mg PO BID [facility] Last Admin: 03/18/17 17:42 Dose: 25 mg Montelukast Sodium (Singulair) 10 mg PO HS [facility] Last Admin: 03/18/17 22:47 Dose: 10 mg Multivitamins (Hexavitamin) 1 tab PO DAILY [facility] Last Admin: 03/18/17 10:28 Dose: 1 tab Potassium Chloride (K-Dur 20 Meq Er Tab) 20 meq PO DAILY [facility] Last Admin: 03/18/17 10:30 Dose: 20 meq Raltegravir (Isentress) 400 mg PO BID [facility] Last Admin: 03/18/17 17:41 Dose: 400 mg Rosuvastatin Calcium (Crestor) 20 mg PO HS [facility] Last Admin: 03/18/17 22:47 Dose: 20 mg Senna/Docusate Sodium (Senokot S 50 Mg-8.6 Mg) 1 tab PO HS PRN PRN Reason: Constipation Last Admin: 03/15/17 21:40 Dose: 1 tab Sertraline HCl (Zoloft) 50 mg PO DAILY [facility] Last Admin: 03/18/17 10:28 Dose: 50 mg Trazodone HCl (Desyrel) 50 mg PO HS [facility] Last Admin: 03/18/17 22:47 Dose: 50 mg - Labs Labs: 03/19/17 06:07 03/19/17 06:07 - Constitutional Appears: No Acute Distress, Other (lethargic) - Head Exam Head Exam: ATRAUMATIC, NORMAL INSPECTION - Eye Exam Eye Exam: Normal appearance - ENT Exam ENT Exam: Mucous Membranes Moist - Respiratory Exam Respiratory Exam: Decreased Breath Sounds, Wheezes (mild). absent: Respiratory Distress - Cardiovascular Exam Cardiovascular Exam: REGULAR RHYTHM - GI/Abdominal Exam GI & Abdominal Exam: Soft. absent: Distended, Tenderness - Neurological Exam Neurological Exam: Alert, Awake, Oriented x3 Assessment and Plan - Assessment and Plan (Free Text) Plan: Dyspnea- Secondary to COPD v. CHF v. Lung CA v. Pneumonia Pt to continue on BIPAP at night; and requires BIPAP at night with discharge Continue 4L NC while awake Holding off on trach- not a candidate considering comorbidities Tolerating oral intake ABG on 03/13: PCO2/61, PO2/64, HCO3/43.7, pH/7.52- improved from previous ABG Follow up ABG tomorrow morning CXR 02/25/17: small right greater than left pleural effusions, right sided cv cathether, median sternotomy wires,; patchy airspace opacity at the right lung base; cardiomegaly CXR 03/13- see full report; R sided consolidation and congestion BNP 99554 Leukocytosis- now 11.4 Avelox 400mg IVPB Q24 (started 03/09)-completed 03/19 Solumedrol 40mg IVP Q12 [facility] tapering Continue duonebs q4hrs Lasix 20mg PO daily KCL 20meq PO HS Tylenol prn Hypokalemia Potassium 3.7 today Continue with K-Rajwinder Monitor daily, supplement as needed Microcytic Anemia- chronic disease v. iron deficiency Hgb is stable- 10.2 today Feosol 325mg PO daily Obstructive Sleep Apnea BiPAP ordered for night time use- patient should go to assisted with BIPAP at night History of COPD Well controlled with O2 nasal cannula and BIPAP Solu-Medrol 40mg IVP Q12H Singulair 10mg PO daily History of HIV Truvada 1 tab PO daily (home med) Isentress 400mg PO BID (home med) HTN Lopressor 25mg PO BID Previous Echo done on 02/26/17- EF 62% (see full report) HLD Crestor 20mg PO HS Psychiatric history- questionable Schizophrenia Fluphenazine 5mg PO BID Benztropine Mesylate 1mg PO BID Zoloft 50mg PO daily Constipation Senna/Docusate Sodium 1 tab PO HS PRN Constipaton Elevated blood glucose secondary to steroids vs DM ISS Accuchecks f/u hemoglobin A1C Prophylaxis Pepcid 20mg PO daily Lovenox 40mg SC daily- had been discontinued due to low platlet count; platelets are back to normal 141; medication restarted Trazodone 50mg PO HS for insomnia SCDs Possible [facility]. Case discussed with Dr. Stanley. All management as per Dr. Stanley.
[2017-03-19 09:17] LABS: NEUTROPHIL 97 % (50-75); TOTAL CELLS COUNTED 100
[2017-03-19] MEDS: Potassium Chloride 20 mEq ER Tab PO SCH (09:39)
[2017-03-19] MEDS: Multiple Vitamins Tab PO SCH (09:39)
[2017-03-19] MEDS: Emtricitabine-Tenofovir 200 mg-300 mg Tab PO SCH (09:53)
[2017-03-19] MEDS: MethylPREDNISolone 40 mg Vial IVP SCH ×2 (09:55→22:20)
[2017-03-19] MEDS: Albuterol-Ipratrop 3 mg / 0.5 (3 ml) UD INH SCH ×2 (19:04→23:42)
[2017-03-19] MEDS: Docusate-Senna 50 mg-8.6 mg Tab PO PRN (21:40)
[2017-03-20] MEDS: Albuterol-Ipratrop 3 mg / 0.5 (3 ml) UD INH SCH ×6 (03:54→23:48)
[2017-03-20 08:23] LABS: ABG ALLEN TEST PO; ARTERIAL BLOOD HGB O2 SAT 84.7 % (95.0-98.0); CARBOXYHEMOGLOBIN 1.9 % (0.5-1.5); DRAW SITE RRA; HHB 12.9 % (0.0-5.0); METHEMOGLOBIN 0.5 % (0.0-3.0)
[2017-03-20] MEDS: (Novolog) Insulin Aspart, Recombinant 100 u/ml 10 ml vial SC SCH ×4 (08:25→22:15)
[2017-03-20 08:48] LABS: CHLORIDE 94 mmol/L (98-107); POTASSIUM 3.6 mmol/L (3.6-5.2); SODIUM 140 mmol/L (132-148)
[2017-03-20 08:50] LABS: GFR AFRICAN-AMERICAN > 60
[2017-03-20 08:51] LABS: ALB/GLOB RATIO 0.9 (1.0-2.1); ALKALINE PHOSPHATASE 158 U/L (38-126); ALT/SGPT 106 U/L (21-72); AST/SGOT 54 U/L (17-59); BILIRUBIN,TOTAL 0.8 mg/dL (0.2-1.3); BLOOD UREA NITROGEN 19 mg/dL (9-20); CALCIUM 7.4 mg/dl (8.6-10.4); GLUCOSE,RANDOM 154 mg/dL (75-110); TOTAL PROTEIN 4.8 g/dL (6.3-8.3)
[2017-03-20 08:52] LABS: CARBON DIOXIDE 40 mmol/L (22-30)
--- NOTE | 2017-03-20 09:48 | CP.PCM.PN ---
Subjective - Date & Time of Evaluation Date of Evaluation: 03/20/17 Time of Evaluation: 09:00 - Subjective Subjective: PGY3 on medicine Dr. Stanley service: Pt seen and examined at bedside. Pt lethargic but responsive to questions. Currently on NS 3L in no acute distress. No other complaints at the moment. Objective - Vital Signs/Intake and Output Vital Signs (last 24 hours): Temp Pulse Resp BP Pulse Ox 97.6 F 65 18 99/48 L 96 03/20/17 08:43 03/20/17 08:43 03/20/17 08:43 03/20/17 08:43 03/20/17 08:43 Intake and Output: 03/20/17 03/20/17 06:59 18:59 Intake Total 300 Output Total 825 Balance -525 - Medications Medications: Current Medications Acetaminophen (Tylenol 325mg Tab) 650 mg PO Q6H PRN PRN Reason: Fever >100.4 F Last Admin: 03/16/17 01:25 Dose: 650 mg Albuterol/Ipratropium (Duoneb 3 Mg/0.5 Mg (3 Ml) Ud) 3 ml INH RQ4 [facility] Last Admin: 03/20/17 07:35 Dose: 3 ml Benztropine Mesylate (Cogentin) 1 mg PO BID [facility] Last Admin: 03/19/17 18:11 Dose: 1 mg Emtricitabine/Tenofovir (Truvada 200 Mg-300 Mg) 1 tab PO DAILY [facility] Last Admin: 03/19/17 09:53 Dose: 1 tab Enoxaparin Sodium (Lovenox) 40 mg SC DAILY [facility] Famotidine (Pepcid) 20 mg PO DAILY [facility] Last Admin: 03/19/17 09:39 Dose: 20 mg Ferrous Sulfate (Feosol) 325 mg PO DAILY [facility] Last Admin: 03/19/17 09:40 Dose: 325 mg Fluphenazine HCl (Prolixin) 5 mg PO BID [facility] Last Admin: 03/19/17 18:11 Dose: 5 mg Furosemide (Lasix) 20 mg PO DAILY [facility] Last Admin: 03/19/17 09:42 Dose: Not Given Hydroxyzine HCl (Atarax) 25 mg PO Q6 PRN PRN Reason: Itching / Pruritus Last Admin: 03/19/17 18:11 Dose: 25 mg Insulin Aspart (Novolog) 0 unit SC ACHS [facility] PRN Reason: Protocol Last Admin: 03/20/17 08:25 Dose: 2 unit Methylprednisolone (Solu-Medrol) 40 mg IVP Q12 [facility] Last Admin: 03/19/17 22:20 Dose: 40 mg Metoprolol Tartrate (Lopressor) 25 mg PO BID [facility] Last Admin: 03/19/17 18:10 Dose: 25 mg Montelukast Sodium (Singulair) 10 mg PO HS [facility] Last Admin: 03/19/17 21:40 Dose: 10 mg Multivitamins (Hexavitamin) 1 tab PO DAILY [facility] Last Admin: 03/19/17 09:39 Dose: 1 tab Potassium Chloride (K-Dur 20 Meq Er Tab) 20 meq PO DAILY [facility] Last Admin: 03/19/17 09:39 Dose: 20 meq Raltegravir (Isentress) 400 mg PO BID [facility] Last Admin: 03/19/17 18:11 Dose: 400 mg Rosuvastatin Calcium (Crestor) 20 mg PO HS [facility] Last Admin: 03/19/17 21:40 Dose: 20 mg Senna/Docusate Sodium (Senokot S 50 Mg-8.6 Mg) 1 tab PO HS PRN PRN Reason: Constipation Last Admin: 03/19/17 21:40 Dose: 1 tab Sertraline HCl (Zoloft) 50 mg PO DAILY [facility] Last Admin: 03/19/17 09:40 Dose: 50 mg Trazodone HCl (Desyrel) 50 mg PO HS [facility] Last Admin: 03/19/17 21:40 Dose: 50 mg - Labs Labs: 03/19/17 06:07 03/20/17 08:27 - Constitutional Appears: Non-toxic, Older Than Stated Age, Chronically Ill - Head Exam Head Exam: NORMOCEPHALIC - Eye Exam Pupil Exam: NORMAL ACCOMODATION - Respiratory Exam Respiratory Exam: Decreased Breath Sounds, Rales, Rhonchi, NORMAL BREATHING PATTERN - Cardiovascular Exam Cardiovascular Exam: REGULAR RHYTHM, +S1, +S2. absent: Gallop, Rubs - GI/Abdominal Exam GI & Abdominal Exam: Soft, Normal Bowel Sounds - Extremities Exam Extremities Exam: Pedal Edema - Neurological Exam Neurological Exam: Alert, Awake Assessment and Plan - Assessment and Plan (Free Text) Assessment: Dyspnea- Secondary to COPD v. CHF v. Lung CA v. Pneumonia 03/20: ABG showed PCO2 69, PO2 46, HCO3 40, pH 7.39, DC planning for tomorrow 03/19: Pt to continue on BIPAP at night; and requires BIPAP at night with discharge Holding off on trach- not a candidate considering comorbidities Tolerating oral intake ABG on 03/13: PCO2/61, PO2/64, HCO3/43.7, pH/7.52- improved from previous ABG Follow up ABG tomorrow morning CXR 02/25/17: small right greater than left pleural effusions, right sided cv cathether, median sternotomy wires,; patchy airspace opacity at the right lung base; cardiomegaly CXR 03/13- see full report; R sided consolidation and congestion BNP 01733 Leukocytosis- now 11.4 Avelox 400mg IVPB Q24 (started 03/09)-completed 03/19 Solumedrol 40mg IVP Q12 [facility] tapering Continue duonebs q4hrs Lasix 20mg PO daily KCL 20meq PO HS Tylenol prn Hypokalemia Stable Monitor daily, supplement as needed Microcytic Anemia- chronic disease v. iron deficiency Hgb is stableFeosol 325mg PO daily Obstructive Sleep Apnea BiPAP ordered for night time use- patient should go to senior living with BIPAP at night History of COPD Well controlled with O2 nasal cannula and BIPAP Solu-Medrol 40mg IVP Q12H Singulair 10mg PO daily History of HIV Truvada 1 tab PO daily (home med) Isentress 400mg PO BID (home med) HTN Lopressor 25mg PO BID Previous Echo done on 02/26/17- EF 62% (see full report) HLD Crestor 20mg PO HS Psychiatric history- questionable Schizophrenia Fluphenazine 5mg PO BID Benztropine Mesylate 1mg PO BID Zoloft 50mg PO daily Constipation Senna/Docusate Sodium 1 tab PO HS PRN Constipaton Elevated blood glucose secondary to steroids vs DM ISS Accuchecks A1c 6.2 Prophylaxis Pepcid 20mg PO daily Lovenox 40mg SC daily- had been discontinued due to low platlet count; platelets are back to normal 141; medication restarted Trazodone 50mg PO HS for insomnia SCDs Possible long term care phlebotomist assisted care placement. Case discussed with Dr. Stanley. All management as per Dr. Stanley.
[2017-03-20] MEDS: MethylPREDNISolone 40 mg Vial IVP SCH ×2 (11:00→21:17)
[2017-03-20] MEDS: Emtricitabine-Tenofovir 200 mg-300 mg Tab PO SCH (11:00)
[2017-03-20] MEDS: Potassium Chloride 20 mEq ER Tab PO SCH (11:00)
[2017-03-20] MEDS: Multiple Vitamins Tab PO SCH (11:00)
[2017-03-20] MEDS: Enoxaparin 40 mg Syringe SC SCH (11:00)
[2017-03-20 11:31] LABS: BASO % 0.3 % (0.0-2.0); HEMATOCRIT 32.6 % (35.0-51.0); LYMPH # 0.2 K/uL (1.0-4.3); LYMPH % 2.1 % (20.0-40.0); MEAN CELL VOLUME 71.8 fL (80.0-94.0); MEAN CORPUSCULAR HEMOGLOBIN 20.9 pg (27.0-31.0); MEAN CORPUSCULAR HGB CONC 29.1 g/dL (33.0-37.0); MEAN PLATELET VOLUME 8.5 fL (7.2-11.7); MONO # 0.2 K/uL (0.0-0.8); MONO % 2.7 % (0.0-10.0); PLATELET COUNT 149 K/uL (130-400); RED CELL DISTRIBUTION WIDTH 27.3 % (11.5-14.5); WHITE BLOOD COUNT 7.9 K/uL (4.8-10.8)
[2017-03-20 13:01] LABS: NEUTROPHIL 93 % (50-75); TOTAL CELLS COUNTED 100
[2017-03-21] MEDS: Albuterol-Ipratrop 3 mg / 0.5 (3 ml) UD INH SCH ×5 (04:32→19:32)
[2017-03-21] MEDS: (Novolog) Insulin Aspart, Recombinant 100 u/ml 10 ml vial SC SCH ×4 (08:16→22:21)
--- NOTE | 2017-03-21 09:09 | CP.PCM.PN ---
Subjective - Date & Time of Evaluation Date of Evaluation: 03/21/17 Time of Evaluation: 09:08 - Subjective Subjective: Medicine Note for Dr. Stanley's Service Pt seen and examined at bedside. He is not currently on BIPAP and states that he is feeling much better. He denies any acute changes in his ROS. He verbalizes improvement in his shortness of breath and is requesting discharge back to his [facility]. Objective - Vital Signs/Intake and Output Vital Signs (last 24 hours): Temp Pulse Resp BP Pulse Ox 98.6 F 109 H 20 150/70 98 03/21/17 08:51 03/21/17 08:51 03/21/17 08:51 03/21/17 08:51 03/21/17 08:51 Intake and Output: 03/21/17 03/21/17 06:59 18:59 Intake Total 200 Output Total 900 Balance -700 - Medications Medications: Current Medications Acetaminophen (Tylenol 325mg Tab) 650 mg PO Q6H PRN PRN Reason: Fever >100.4 F Last Admin: 03/20/17 21:18 Dose: 650 mg Albuterol/Ipratropium (Duoneb 3 Mg/0.5 Mg (3 Ml) Ud) 3 ml INH RQ4 [facility] Last Admin: 03/21/17 07:38 Dose: 3 ml Benztropine Mesylate (Cogentin) 1 mg PO BID [facility] Last Admin: 03/20/17 19:21 Dose: 1 mg Emtricitabine/Tenofovir (Truvada 200 Mg-300 Mg) 1 tab PO DAILY [facility] Last Admin: 03/20/17 11:00 Dose: 1 tab Enoxaparin Sodium (Lovenox) 40 mg SC DAILY [facility] Last Admin: 03/20/17 11:00 Dose: 40 mg Famotidine (Pepcid) 20 mg PO DAILY [facility] Last Admin: 03/20/17 11:00 Dose: 20 mg Ferrous Sulfate (Feosol) 325 mg PO DAILY [facility] Last Admin: 03/20/17 11:00 Dose: 325 mg Fluphenazine HCl (Prolixin) 5 mg PO BID [facility] Last Admin: 03/20/17 19:21 Dose: 5 mg Furosemide (Lasix) 20 mg PO DAILY [facility] Last Admin: 03/20/17 11:00 Dose: Not Given Hydroxyzine HCl (Atarax) 25 mg PO Q6 PRN PRN Reason: Itching / Pruritus Last Admin: 03/20/17 11:29 Dose: 25 mg Insulin Aspart (Novolog) 0 unit SC ACHS [facility] PRN Reason: Protocol Last Admin: 03/21/17 08:16 Dose: 2 unit Methylprednisolone (Solu-Medrol) 40 mg IVP Q12 [facility] Last Admin: 03/20/17 21:17 Dose: 40 mg Metoprolol Tartrate (Lopressor) 25 mg PO BID [facility] Last Admin: 03/20/17 19:21 Dose: 25 mg Montelukast Sodium (Singulair) 10 mg PO [facility] Last Admin: 03/20/17 21:18 Dose: 10 mg Multivitamins (Hexavitamin) 1 tab PO DAILY [facility] Last Admin: 03/20/17 11:00 Dose: 1 tab Potassium Chloride (K-Dur 20 Meq Er Tab) 20 meq PO DAILY [facility] Last Admin: 03/20/17 11:00 Dose: 20 meq Raltegravir (Isentress) 400 mg PO BID [facility] Last Admin: 03/20/17 19:21 Dose: 400 mg Rosuvastatin Calcium (Crestor) 20 mg PO [facility] Last Admin: 03/20/17 21:18 Dose: 20 mg Senna/Docusate Sodium (Senokot S 50 Mg-8.6 Mg) 1 tab PO HS PRN PRN Reason: Constipation Last Admin: 03/19/17 21:40 Dose: 1 tab Sertraline HCl (Zoloft) 50 mg PO DAILY [facility] Last Admin: 03/20/17 11:00 Dose: 50 mg Trazodone HCl (Desyrel) 50 mg PO [facility] Last Admin: 03/20/17 21:18 Dose: 50 mg - Labs Labs: 03/20/17 11:21 03/20/17 08:27 - Constitutional Appears: No Acute Distress - Head Exam Head Exam: ATRAUMATIC, NORMOCEPHALIC - Eye Exam Eye Exam: EOMI, Normal appearance - ENT Exam ENT Exam: Mucous Membranes Moist - Respiratory Exam Respiratory Exam: Wheezes (mild), NORMAL BREATHING PATTERN. absent: Respiratory Distress, Stridor - Cardiovascular Exam Cardiovascular Exam: REGULAR RHYTHM - GI/Abdominal Exam GI & Abdominal Exam: Soft. absent: Tenderness - Neurological Exam Neurological Exam: Alert, Awake, Oriented x3 Assessment and Plan - Assessment and Plan (Free Text) Plan: Dyspnea- Secondary to COPD v. CHF v. Lung CA v. Pneumonia 03/20: ABG showed PCO2 69, PO2 46, HCO3 40, pH 7.39, DC planning for tomorrow 03/19: Pt to continue on BIPAP at night; and requires BIPAP at night with discharge Holding off on trach- not a candidate considering comorbidities Tolerating oral intake ABG on 03/13: PCO2/61, PO2/64, HCO3/43.7, pH/7.52- improved from previous ABG Follow up ABG tomorrow morning CXR 02/25/17: small right greater than left pleural effusions, right sided cv cathether, median sternotomy wires,; patchy airspace opacity at the right lung base; cardiomegaly CXR 03/13- see full report; R sided consolidation and congestion BNP 99559 Leukocytosis- now 14.3 rising from 7 on 03/20 Afebrile Follow up blood cultures Follow up UA/Ucx started on Cefepime 1g q12hrs today Monitor AM labs and WBC Solumedrol 40mg IVP Q12 [facility] tapering Continue duonebs q4hrs Lasix 20mg PO daily KCL 20meq PO HS Tylenol prn Hypokalemia Stable Monitor daily, supplement as needed K today- 3.7 KCL 20meq PO daily Microcytic Anemia- chronic disease v. iron deficiency Hgb is stableFeosol 325mg PO daily h/h: Obstructive Sleep Apnea BiPAP ordered for night time use- patient should go to [facility]dc with BIPAP at night History of COPD Well controlled with O2 nasal cannula and BIPAP Solu-Medrol 40mg IVP Q12H Singulair 10mg PO daily History of HIV Truvada 1 tab PO daily (home med) Isentress 400mg PO BID (home med) HTN Lopressor 25mg PO BID Previous Echo done on 02/26/17- EF 62% (see full report) HLD Crestor 20mg PO HS Psychiatric history- questionable Schizophrenia Fluphenazine 5mg PO BID Benztropine Mesylate 1mg PO BID Zoloft 50mg PO daily Atarax 25mg Q6 prn Constipation Senna/Docusate Sodium 1 tab PO HS PRN Constipaton Transient hyperglycemia likely secondary to steroid administration ISS Continue to monitor No documented history of DM Accuchecks A1c 6.2 Prophylaxis Pepcid 20mg PO daily Lovenox 40mg SC daily- had been discontinued due to low platlet count; platelets are back to normal 141; medication restarted Trazodone 50mg PO HS for insomnia SCDs Pt was awaiting placement to 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 IV abx were started with Cefepime 1g q12hrs. He will remain inpatient with further work up pending. Blood and urine cultures to be collected. Upon discharge patient will need BiPAP at night. Case discussed with Dr. Stanley. All management as per Dr. Stanley.
[2017-03-21] MEDS: Emtricitabine-Tenofovir 200 mg-300 mg Tab PO SCH (10:55)
[2017-03-21] MEDS: Potassium Chloride 20 mEq ER Tab PO SCH (10:55)
[2017-03-21] MEDS: Enoxaparin 40 mg Syringe SC SCH (10:55)
[2017-03-21] MEDS: MethylPREDNISolone 40 mg Vial IVP SCH ×2 (10:55→22:23)
[2017-03-21] MEDS: Multiple Vitamins Tab PO SCH (10:55)
[2017-03-21 11:51] LABS: BASO % 0.2 % (0.0-2.0); LYMPH # 0.1 K/uL (1.0-4.3); LYMPH % 0.8 % (20.0-40.0); MEAN CELL VOLUME 71.7 fL (80.0-94.0); MEAN CORPUSCULAR HEMOGLOBIN 21.1 pg (27.0-31.0); MEAN CORPUSCULAR HGB CONC 29.5 g/dL (33.0-37.0); MEAN PLATELET VOLUME 8.5 fL (7.2-11.7); MONO # 0.3 K/uL (0.0-0.8); RED CELL DISTRIBUTION WIDTH 29.3 % (11.5-14.5)
[2017-03-21 11:58] LABS: CHLORIDE 93 mmol/L (98-107); POTASSIUM 3.7 mmol/L (3.6-5.2); SODIUM 137 mmol/L (132-148)
[2017-03-21 11:59] LABS: PLATELET COUNT 127 K/uL (130-400); WHITE BLOOD COUNT 14.3 K/uL (4.8-10.8)
[2017-03-21 12:00] LABS: ALKALINE PHOSPHATASE 191 U/L (38-126); ALT/SGPT 112 U/L (21-72); AST/SGOT 76 U/L (17-59); BLOOD UREA NITROGEN 25 mg/dL (9-20); CARBON DIOXIDE 35 mmol/L (22-30); GFR AFRICAN-AMERICAN > 60; GLUCOSE,RANDOM 188 mg/dL (75-110); TOTAL PROTEIN 5.7 g/dL (6.3-8.3)
[2017-03-21 12:40] LABS: NEUTROPHIL 84 % (50-75); TOTAL CELLS COUNTED 100
[2017-03-22] MEDS: Albuterol-Ipratrop 3 mg / 0.5 (3 ml) UD INH SCH ×7 (00:40→23:32)
[2017-03-22] MEDS: (Novolog) Insulin Aspart, Recombinant 100 u/ml 10 ml vial SC SCH ×4 (08:56→22:00)
[2017-03-22 09:56] LABS: ABG ALLEN TEST PO; ARTERIAL BLOOD GAS MODE BiPAP; DRAW SITE RRA
[2017-03-22 10:05] LABS: BASO % 0.5 % (0.0-2.0); EOS % 0.3 % (0.0-4.0); HEMATOCRIT 31.8 % (35.0-51.0); LYMPH # 0.1 K/uL (1.0-4.3); LYMPH % 0.9 % (20.0-40.0); MEAN CELL VOLUME 71.9 fL (80.0-94.0); MEAN CORPUSCULAR HEMOGLOBIN 20.8 pg (27.0-31.0); MEAN CORPUSCULAR HGB CONC 28.9 g/dL (33.0-37.0); MEAN PLATELET VOLUME 8.5 fL (7.2-11.7); MONO # 0.1 K/uL (0.0-0.8); MONO % 0.9 % (0.0-10.0); NRBC % 0.1 % (0.0-2.0); RED CELL DISTRIBUTION WIDTH 31.6 % (11.5-14.5)
[2017-03-22] MEDS ORDERED: Sodium Chloride 0.9% 500 ML IV ONE (10:09)
[2017-03-22 10:13] LABS: CHLORIDE 95 mmol/L (98-107); POTASSIUM 3.5 mmol/L (3.6-5.2); SODIUM 140 mmol/L (132-148)
[2017-03-22] MEDS ORDERED: DOPamine 400mg/250ml D5W 400 MG/250 ML BAG IV PRN (10:14)
[2017-03-22 10:15] LABS: AST/SGOT 160 U/L (17-59); BILIRUBIN,TOTAL 2.6 mg/dL (0.2-1.3); CARBON DIOXIDE 35 mmol/L (22-30); GFR AFRICAN-AMERICAN > 60
[2017-03-22] MEDS: MethylPREDNISolone 40 mg Vial IVP SCH ×2 (10:15→21:41)
[2017-03-22 10:16] LABS: ALB/GLOB RATIO 0.8 (1.0-2.1); ALKALINE PHOSPHATASE 208 U/L (38-126); ALT/SGPT 140 U/L (21-72); BLOOD UREA NITROGEN 42 mg/dL (9-20); CALCIUM 7.6 mg/dl (8.6-10.4); GLUCOSE,RANDOM 208 mg/dL (75-110); TOTAL PROTEIN 4.8 g/dL (6.3-8.3)
[2017-03-22 10:19] LABS: PLATELET COUNT 35 K/uL (130-400)
[2017-03-22] MEDS ORDERED: Vancomycin 1 gm/NS 200 ml 1 GM/200 ML BAG IVPB STA (10:21)
[2017-03-22 11:19] LABS: NEUTROPHIL 52 % (50-75); TOTAL CELLS COUNTED 100
--- NOTE | 2017-03-22 11:20 | RAD ---
HISTORY: [employer] COMPARISON: 03/13/2017 FINDINGS: LUNGS: Examination limited. Lung apices obscured by patient's mandible. No pulmonary infiltrate. Vertically-oriented linear opacity at left base, likely atelectasis. Unchanged from prior. PLEURA: Probable very small right pleural effusion. No evidence of left pleural effusion. CARDIOVASCULAR: Sternotomy wires. Right central venous infusion port. OSSEOUS STRUCTURES: No significant abnormalities. VISUALIZED UPPER ABDOMEN: Normal. OTHER FINDINGS: None. IMPRESSION: No acute infiltrate. Possible very small right pleural effusion.
[2017-03-22] MEDS: Multiple Vitamins Tab PO SCH (12:05)
[2017-03-22] MEDS: Potassium Chloride 20 mEq ER Tab PO SCH (12:05)
[2017-03-22] MEDS: Enoxaparin 40 mg Syringe SC SCH (12:06)
[2017-03-22] MEDS: Emtricitabine-Tenofovir 200 mg-300 mg Tab PO SCH (12:07)
--- NOTE | 2017-03-22 13:44 | CP.PCM.PN ---
Subjective - Date & Time of Evaluation Date of Evaluation: 03/22/17 Time of Evaluation: 07:05 - Subjective Subjective: Medicine Note- Dr. Stanley's service Patient was seen and examined at bedside. Patient was awake and alert at time of evaluation. Patient was responsive to questions. He reported no acute complaints, was still using bipap at time of examination. Rapid Response called later in morning due to persistent hypotension and hypoxemia on O2 saturation. Patient was brought down to the ICU for further evaluation. Objective - Vital Signs/Intake and Output Vital Signs (last 24 hours): Temp Pulse Resp BP Pulse Ox 99.5 F 106 H 24 96/57 L 97 03/22/17 10:15 03/22/17 11:17 03/22/17 09:31 03/22/17 12:23 03/22/17 12:23 Intake and Output: 03/22/17 03/22/17 06:59 18:59 Intake Total 250 Output Total 500 Balance -250 - Medications Medications: Current Medications Acetaminophen (Tylenol 325mg Tab) 650 mg PO Q6H PRN PRN Reason: Fever >100.4 F Last Admin: 03/22/17 10:15 Dose: 650 mg Albuterol/Ipratropium (Duoneb 3 Mg/0.5 Mg (3 Ml) Ud) 3 ml INH RQ4 [facility] Last Admin: 03/22/17 11:16 Dose: 3 ml Benztropine Mesylate (Cogentin) 1 mg PO BID [facility] Last Admin: 03/22/17 11:12 Dose: Not Given Emtricitabine/Tenofovir (Truvada 200 Mg-300 Mg) 1 tab PO DAILY [facility] Last Admin: 03/22/17 12:07 Dose: Not Given Enoxaparin Sodium (Lovenox) 40 mg SC DAILY [facility] Last Admin: 03/22/17 12:06 Dose: Not Given Famotidine (Pepcid) 20 mg PO DAILY [facility] Last Admin: 03/22/17 12:06 Dose: Not Given Ferrous Sulfate (Feosol) 325 mg PO DAILY [facility] Last Admin: 03/22/17 12:05 Dose: Not Given Fluphenazine HCl (Prolixin) 5 mg PO BID [facility] Last Admin: 03/22/17 12:07 Dose: Not Given Furosemide (Lasix) 20 mg PO DAILY [facility] Last Admin: 03/22/17 12:06 Dose: Not Given Hydroxyzine HCl (Atarax) 25 mg PO Q6 PRN PRN Reason: Itching / Pruritus Last Admin: 03/21/17 17:51 Dose: 25 mg Cefepime HCl 1 gm/ Dextrose 50 mls @ 100 mls/hr IVPB Q12H [facility] Last Admin: 03/22/17 02:41 Dose: 100 mls/hr Dopamine HCl/Dextrose (Dopamine 400mg/250ml D5w) 400 mg in 250 mls @ 16.925 mls /hr IV .[id number] PRN; Protocol; 5 MCG/KG/MIN PRN Reason: TITRATE PER MD ORDER Norepinephrine Bitartrate 4 mg (/ Sodium Chloride) 254 mls @ 15.24 mls/hr IV .[id number] PRN; Protocol; 4 MCG/MIN PRN Reason: TITRATE PER MD ORDER Insulin Aspart (Novolog) 0 unit SC ACHS DAVIS PRN Reason: Protocol Last Admin: 03/22/17 08:56 Dose: 3 unit Methylprednisolone (Solu-Medrol) 40 mg IVP Q12 [facility] Last Admin: 03/22/17 10:15 Dose: 40 mg Metoprolol Tartrate (Lopressor) 25 mg PO BID [facility] Last Admin: 03/22/17 12:06 Dose: Not Given Montelukast Sodium (Singulair) 10 mg PO HS [facility] Last Admin: 03/21/17 22:20 Dose: 10 mg Multivitamins (Hexavitamin) 1 tab PO DAILY [facility] Last Admin: 03/22/17 12:05 Dose: Not Given Potassium Chloride (K-Dur 20 Meq Er Tab) 20 meq PO DAILY [facility] Last Admin: 03/22/17 12:05 Dose: Not Given Raltegravir (Isentress) 400 mg PO BID [facility] Last Admin: 03/22/17 12:05 Dose: Not Given Rosuvastatin Calcium (Crestor) 20 mg PO HS [facility] Last Admin: 03/21/17 22:20 Dose: 20 mg Senna/Docusate Sodium (Senokot S 50 Mg-8.6 Mg) 1 tab PO HS PRN PRN Reason: Constipation Last Admin: 03/19/17 21:40 Dose: 1 tab Sertraline HCl (Zoloft) 50 mg PO DAILY [facility] Last Admin: 03/22/17 12:07 Dose: Not Given Trazodone HCl (Desyrel) 50 mg PO HS [facility] Last Admin: 03/21/17 22:20 Dose: 50 mg - Labs Labs: 03/22/17 09:58 03/22/17 09:58 - Constitutional Appears: Non-toxic, No Acute Distress, Chronically Ill - Head Exam Head Exam: ATRAUMATIC, NORMAL INSPECTION, NORMOCEPHALIC - Eye Exam Pupil Exam: NORMAL ACCOMODATION, PERRL - ENT Exam ENT Exam: Mucous Membranes Moist - Respiratory Exam Respiratory Exam: Rales, Wheezes. absent: Rhonchi, NORMAL BREATHING PATTERN - Cardiovascular Exam Cardiovascular Exam: REGULAR RHYTHM, +S1, +S2 - GI/Abdominal Exam GI & Abdominal Exam: Soft, Normal Bowel Sounds. absent: Tenderness, Diminished Bowel Sounds, Hernia, Hypoactive Bowel Sounds - Extremities Exam Extremities Exam: Normal Capillary Refill - Neurological Exam Neurological Exam: Alert, Awake. absent: Oriented x3 - Psychiatric Exam Psychiatric exam: Normal Affect, Normal Mood - Skin Skin Exam: Dry, Intact, Normal Color, Warm Assessment and Plan - Assessment and Plan (Free Text) Assessment: Dyspnea- Secondary to COPD v. CHF v. Lung CA v. Pneumonia 03/21: SHAFT SINKER called on patient, hypoxic and hypotensive. ABG showed pH 7.54, PO2 67 PCO2 41. WBC 8.0, Band neutrophils 46%. No acute infiltrate. Possible small r pleural effusion. Patient transferred to ICU for further management 03/20: ABG showed PCO2 69, PO2 46, HCO3 40, pH 7.39, DC planning for tomorrow 03/19: Pt to continue on BIPAP at night; and requires BIPAP at night with discharge Holding off on trach- not a candidate considering comorbidities Tolerating oral intake ABG on 03/13: PCO2/61, PO2/64, HCO3/43.7, pH/7.52- improved from previous ABG Follow up ABG tomorrow morning CXR 02/25/17: small right greater than left pleural effusions, right sided cv cathether, median sternotomy wires,; patchy airspace opacity at the right lung base; cardiomegaly CXR 03/13- see full report; R sided consolidation and congestion BNP [id number] Leukocytosis- now 14.3 rising from 7 on 03/20 Afebrile Follow up blood cultures Follow up UA/Ucx started on Cefepime 1g q12hrs today Monitor AM labs and WBC Solumedrol 40mg IVP Q12 davis tapering Continue duonebs q4hrs Lasix 20mg PO daily KCL 20meq PO HS Tylenol prn Sepsis Lactate 1.7 Fever 101.1 overnight Tachycardia Received 2.5L bolus during SHAFT SINKER, NS @ 150cc/hr started stat Vancomycin given Continue Cefepime UTI Urine culture- prelim Gram negative rods Hypokalemia Stable Monitor daily, supplement as needed K today- 3.7 KCL 20meq PO daily Microcytic Anemia- chronic disease v. iron deficiency Hgb is stableFeosol 325mg PO daily h/h: Obstructive Sleep Apnea BiPAP ordered for night time use- patient should go to care home with BIPAP at night History of COPD Well controlled with O2 nasal cannula and BIPAP Solu-Medrol 40mg IVP Q12H Singulair 10mg PO daily History of HIV Truvada 1 tab PO daily (home med) Isentress 400mg PO BID (home med) HTN Lopressor 25mg PO BID Previous Echo done on 02/26/17- EF 62% (see full report) HLD Crestor 20mg PO HS Psychiatric history- questionable Schizophrenia Fluphenazine 5mg PO BID Benztropine Mesylate 1mg PO BID Zoloft 50mg PO daily Atarax 25mg Q6 prn Constipation Senna/Docusate Sodium 1 tab PO HS PRN Constipaton Transient hyperglycemia likely secondary to steroid administration ISS Continue to monitor No documented history of DM Accuchecks A1c 6.2 Prophylaxis Pepcid 20mg PO daily Lovenox 40mg SC daily- had been discontinued due to low platlet count; platelets are back to normal 141; medication restarted Trazodone 50mg PO HS for insomnia SCDs Upon discharge patient will need BiPAP at night. Case discussed with Dr. Stanley. All management as per Dr. Stanley.
--- NOTE | 2017-03-22 18:00 | CP.PCM.CON ---
<Nery Donnelly - Last Filed: 03/22/17 17:49> History of Present Illness - History of Present Illness History of Present Illness: Patient is a 66 year old male with medical history of COPD, emphysema, ashtma, Lung cancer, arthritis, CHF, DM, multiple fractures, HIV, and hyperlipidemia, presents to the ICU with hypotension and hypoxia. Rapid response was called due to blood pressure of 79/46 and O2 saturation of 89%. Patient has been hopsitalized since 03/08/17 for dyspnea, COPD and CHF exacerbation. He has a history of altered mental status while in the hospital. Patient is a poor historian and did not answer to questions or review of systems, except for reporting he has generalized pain. PHx: COPD, emphysema, ashtma, Lung cancer, arthritis, CHF, DM, multiple fractures, HIV, and hyperlipidemia SurgHx: "yes, but I dont know what kind" FamHx: unknown SocHx: former drinker, smoker, and drug user. Lives in retirement Allergies: clopidogrel, seafood Medications: See EMR Review of Systems - Review of Systems Systems not reviewed;Unavailable: Altered Mental Status, Uncooperative Past Patient History - Past Medical History & Family History Past Medical History?: Yes - Past Social History Smoking Status: Former Smoker - CARDIAC Hx Congestive Heart Failure: Yes - PULMONARY Hx Asthma: Yes Hx Chronic Obstructive Pulmonary Disease (COPD): Yes Hx Emphysema: Yes - ENDOCRINE/METABOLIC Hx Endocrine Disorders: Yes Hx Diabetes Mellitus Type 2: Yes - HEMATOLOGICAL/ONCOLOGICAL Hx Human Immunodeficiency Virus (HIV): Yes - MUSCULOSKELETAL/RHEUMATOLOGICAL Hx Arthritis: Yes Hx Falls: Yes Hx Fractures: Yes (left lower leg, wrist , hand) - PSYCHIATRIC Hx Substance Use: No - SURGICAL HISTORY Hx Surgeries: Yes Hx Orthopedic Surgery: Yes (right shoulder torn rotator cuff 3 yr ago) - ANESTHESIA Hx Anesthesia: Yes Hx Anesthesia Reactions: No Hx Malignant Hyperthermia: No Meds Allergies/Adverse Reactions: Allergies Allergy/AdvReac Type Severity Reaction Status Date / Time clopidogrel [From Plavix] Allergy Verified 03/08/17 13:31 seafood Allergy Uncoded 03/08/17 13:31 - Medications Medications: Current Medications Acetaminophen (Tylenol 325mg Tab) 650 mg PO Q6H PRN PRN Reason: Fever >100.4 F Last Admin: 03/22/17 10:15 Dose: 650 mg Albuterol/Ipratropium (Duoneb 3 Mg/0.5 Mg (3 Ml) Ud) 3 ml INH RQ4 [facility] Last Admin: 03/22/17 16:05 Dose: 3 ml Benztropine Mesylate (Cogentin) 1 mg PO BID [facility] Last Admin: 03/22/17 11:12 Dose: Not Given Emtricitabine/Tenofovir (Truvada 200 Mg-300 Mg) 1 tab PO DAILY [facility] Last Admin: 03/22/17 12:07 Dose: Not Given Famotidine (Pepcid) 20 mg PO DAILY [facility] Last Admin: 03/22/17 12:06 Dose: Not Given Ferrous Sulfate (Feosol) 325 mg PO DAILY [facility] Last Admin: 03/22/17 12:05 Dose: Not Given Fluphenazine HCl (Prolixin) 5 mg PO BID [facility] Last Admin: 03/22/17 12:07 Dose: Not Given Furosemide (Lasix) 20 mg PO DAILY [facility] Last Admin: 03/22/17 12:06 Dose: Not Given Hydroxyzine HCl (Atarax) 25 mg PO Q6 PRN PRN Reason: Itching / Pruritus Last Admin: 03/21/17 17:51 Dose: 25 mg Cefepime HCl 1 gm/ Dextrose 50 mls @ 100 mls/hr IVPB Q12H [facility] Last Admin: 03/22/17 15:00 Dose: 100 mls/hr Dopamine HCl/Dextrose (Dopamine 400mg/250ml D5w) 400 mg in 250 mls @ 16.925 mls /hr IV .[id number] PRN; Protocol; 5 MCG/KG/MIN PRN Reason: TITRATE PER MD ORDER Norepinephrine Bitartrate 4 mg (/ Sodium Chloride) 254 mls @ 15.24 mls/hr IV .[id number] PRN; Protocol; 4 MCG/MIN PRN Reason: TITRATE PER MD ORDER Last Admin: 03/22/17 16:27 Dose: 3 mcg/min, 11.43 mls/hr Insulin Aspart (Novolog) 0 unit SC ACHS [facility] PRN Reason: Protocol Last Admin: 03/22/17 14:46 Dose: Not Given Methylprednisolone (Solu-Medrol) 40 mg IVP Q12 [facility] Last Admin: 03/22/17 10:15 Dose: 40 mg Metoprolol Tartrate (Lopressor) 25 mg PO BID [facility] Last Admin: 03/22/17 12:06 Dose: Not Given Montelukast Sodium (Singulair) 10 mg PO HS [facility] Last Admin: 03/21/17 22:20 Dose: 10 mg Multivitamins (Hexavitamin) 1 tab PO DAILY [facility] Last Admin: 03/22/17 12:05 Dose: Not Given Potassium Chloride (K-Dur 20 Meq Er Tab) 20 meq PO DAILY [facility] Last Admin: 03/22/17 12:05 Dose: Not Given Raltegravir (Isentress) 400 mg PO BID [facility] Last Admin: 03/22/17 12:05 Dose: Not Given Rosuvastatin Calcium (Crestor) 20 mg PO [facility] Last Admin: 03/21/17 22:20 Dose: 20 mg Senna/Docusate Sodium (Senokot S 50 Mg-8.6 Mg) 1 tab PO HS PRN PRN Reason: Constipation Last Admin: 03/19/17 21:40 Dose: 1 tab Sertraline HCl (Zoloft) 50 mg PO DAILY [facility] Last Admin: 03/22/17 12:07 Dose: Not Given Trazodone HCl (Desyrel) 50 mg PO [facility] Last Admin: 03/21/17 22:20 Dose: 50 mg Physical Exam - Constitutional Appears: Unkempt, Confused - Head Exam Head Exam: ATRAUMATIC, NORMAL INSPECTION - ENT Exam ENT Exam: Mucous Membranes Moist - Respiratory Exam Respiratory Exam: Decreased Breath Sounds, Prolonged Expiratory Phase. absent: Rales, Rhonchi, Wheezes - Cardiovascular Exam Cardiovascular Exam: REGULAR RHYTHM, +S1, +S2 - GI/Abdominal Exam GI & Abdominal Exam: Distended, Normal Bowel Sounds, Tenderness. absent: Mass - Extremities Exam Extremities exam: Positive for: pedal edema. Negative for: normal inspection - Neurological Exam Additional comments: Lethargic - Skin Skin Exam: Dry, Intact, Warm Results - Vital Signs Recent Vital Signs: Last Vital Signs Temp 98.4 F 03/22/17 16:00 Pulse 101 H 03/22/17 16:27 Resp 24 03/22/17 16:27 BP 81/45 L 03/22/17 16:27 Pulse Ox 97 03/22/17 16:27 - Labs Result Diagrams: 03/22/17 09:58 03/22/17 09:58 Labs: Laboratory Results - last 24 hr 03/21/17 03/22/17 03/22/17 21:10 06:15 09:36 WBC RBC Hgb Hct MCV MCH MCHC RDW Plt Count MPV Neut % (Auto) Lymph % (Auto) [place] % (Auto) Eos % (Auto) Baso % (Auto) Neut # Lymph # [place] # Eos # Baso # Neutrophils % (Manual) Band Neutrophils % Lymphocytes % (Manual) Monocytes % (Manual) Platelet Estimate Polychromasia Hypochromasia (manual) Anisocytosis (manual) Microcytosis (manual) Ovalocytes Puncture Site pCO2 pO2 HCO3 ABG pH ABG Total CO2 ABG O2 Saturation ABG Base Excess Yahir Test ABG Potassium A-a O2 Difference Respiratory Index Sodium Chloride Glucose Lactate Vent Mode FiO2 Inspiratory BiPAP Expiratory BiPAP Potassium Carbon Dioxide Anion Gap BUN Creatinine Est GFR ( Amer) Est GFR (Non-Af Amer) POC Glucose (mg/dL) 204 H 239 H 248 H Random Glucose Calcium Total Bilirubin AST ALT Alkaline Phosphatase Total Protein Albumin Globulin Albumin/Globulin Ratio Arterial Blood Potassium Ur L.pneumophila Ag 03/22/17 03/22/17 03/22/17 09:52 09:58 09:58 WBC 8.0 RBC 4.43 Hgb 9.2 L Hct 31.8 L MCV 71.9 L MCH 20.8 L MCHC 28.9 L RDW 31.6 H Plt Count 35 L D MPV 8.5 Neut % (Auto) 97.4 H Lymph % (Auto) 0.9 L [place] % (Auto) 0.9 Eos % (Auto) 0.3 Baso % (Auto) 0.5 Neut # 7.8 H Lymph # 0.1 L [place] # 0.1 Eos # 0.0 Baso # 0.0 Neutrophils % (Manual) 52 Band Neutrophils % 46 H* Lymphocytes % (Manual) 1 L Monocytes % (Manual) 1 Platelet Estimate Decreased L Polychromasia Slight Hypochromasia (manual) Moderate Anisocytosis (manual) Marked Microcytosis (manual) Slight Ovalocytes Slight Puncture Site Rra pCO2 41 pO2 67 L HCO3 36.6 H ABG pH 7.58 H ABG Total CO2 39.7 H ABG O2 Saturation 97.3 ABG Base Excess 15.0 H Yahir Test Po ABG Potassium 3.5 L A-a O2 Difference 238.0 Respiratory Index 3.6 Sodium 141.0 140 Chloride 105.0 95 L Glucose 222 H Lactate 1.7 Vent Mode Bipap FiO2 50.0 Inspiratory BiPAP 14 Expiratory BiPAP 6 Potassium 3.5 L Carbon Dioxide 35 H Anion Gap 14 BUN 42 H Creatinine 1.1 Est GFR ( Amer) > 60 Est GFR (Non-Af Amer) > 60 POC Glucose (mg/dL) Random Glucose 208 H Calcium 7.6 L Total Bilirubin 2.6 H AST 160 H D ALT 140 H D Alkaline Phosphatase 208 H Total Protein 4.8 L Albumin 2.1 L D Globulin 2.6 Albumin/Globulin Ratio 0.8 L Arterial Blood Potassium 3.5 L Ur L.pneumophila Ag 03/22/17 03/22/17 11:36 13:49 WBC RBC Hgb Hct MCV MCH MCHC RDW Plt Count MPV Neut % (Auto) Lymph % (Auto) [place] % (Auto) Eos % (Auto) Baso % (Auto) Neut # Lymph # [place] # Eos # Baso # Neutrophils % (Manual) Band Neutrophils % Lymphocytes % (Manual) Monocytes % (Manual) Platelet Estimate Polychromasia Hypochromasia (manual) Anisocytosis (manual) Microcytosis (manual) Ovalocytes Puncture Site pCO2 pO2 HCO3 ABG pH ABG Total CO2 ABG O2 Saturation ABG Base Excess Yahir Test ABG Potassium A-a O2 Difference Respiratory Index Sodium Chloride Glucose Lactate Vent Mode FiO2 Inspiratory BiPAP Expiratory BiPAP Potassium Carbon Dioxide Anion Gap BUN Creatinine Est GFR ( Amer) Est GFR (Non-Af Amer) POC Glucose (mg/dL) 201 H Random Glucose Calcium Total Bilirubin AST ALT Alkaline Phosphatase Total Protein Albumin Globulin Albumin/Globulin Ratio Arterial Blood Potassium Ur L.pneumophila Ag Negative Assessment & Plan - Assessment and Plan (Free Text) Assessment: Patient is a 66 year old male with medical history of COPD, emphysema, asthma, Lung cancer, arthritis, CHF, DM, multiple fractures, HIV, and hyperlipidemia, presents to the ICU with hypotension and hypoxia. Rapid response was called due to blood pressure of 79/46 and O2 saturation of 89%. 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 Patient has been hospitalized since for dyspnea, COPD and CHF exacerbation. He has a history of altered mental status while in the hospital. Neuro: lethargic, not oriented Pulm: Dyspnea - Hx of COPD, emphysema, ashtma, lung cancer - Nasal cannula - Continue duonebs, solumedrol, singulair - CXR: no acute infiltrate, possibly very small right pleural effusion CV: Hypotension, CHF - Continue pressors - Monitor BP - CXR: no acute infiltrate, possibly very small right pleural effusion - Continue Lasix, Crestor, Hold BP medications Endo: Hx of DM - Continue ISS - Accuchecks, Monitor Blood glucose GI: - Elevated LFTs - Hx of hyperlipidemia-- continue Crestor - Continue to monitor LFTs Heme: Hx of Lung cancer - Holding lovenox- platelet count 35 - Monitor H/H/Platelets - Hgb 9.2, Likely Anemia of chronic disease Renal: - BUN/Cr: 42/1.1 - Monitor kidney function ID: Bandemia, Septic - Bandemia: 46 (13 on 03/21/17) - Continue Vancomycin and Cefepime - Hx of HIV: continue Truvada, Isentress - L. pneumophilia: negative - Urine cx: f/u - Blood cx: f/u Psych: - Continue all psych medications Prophylaxis: - DVT: holding lovenox- platelet count 35, SCDs - GI: Pepcid <Chava Acevedo S - Last Filed: 03/22/17 18:48> Meds - Medications Medications: Current Medications Acetaminophen (Tylenol 325mg Tab) 650 mg PO Q6H PRN PRN Reason: Fever >100.4 F Last Admin: 03/22/17 10:15 Dose: 650 mg Albuterol/Ipratropium (Duoneb 3 Mg/0.5 Mg (3 Ml) Ud) 3 ml INH RQ4 [facility] Last Admin: 03/22/17 16:05 Dose: 3 ml Benztropine Mesylate (Cogentin) 1 mg PO BID [facility] Last Admin: 03/22/17 17:51 Dose: 1 mg Emtricitabine/Tenofovir (Truvada 200 Mg-300 Mg) 1 tab PO DAILY [facility] Last Admin: 03/22/17 12:07 Dose: Not Given Famotidine (Pepcid) 20 mg PO DAILY [facility] Last Admin: 03/22/17 12:06 Dose: Not Given Ferrous Sulfate (Feosol) 325 mg PO DAILY [facility] Last Admin: 03/22/17 12:05 Dose: Not Given Fluphenazine HCl (Prolixin) 5 mg PO BID [facility] Last Admin: 03/22/17 17:51 Dose: 5 mg Furosemide (Lasix) 20 mg PO DAILY [facility] Last Admin: 03/22/17 12:06 Dose: Not Given Hydroxyzine HCl (Atarax) 25 mg PO Q6 PRN PRN Reason: Itching / Pruritus Last Admin: 03/21/17 17:51 Dose: 25 mg Cefepime HCl 1 gm/ Dextrose 50 mls @ 100 mls/hr IVPB Q12H [facility] Last Admin: 03/22/17 15:00 Dose: 100 mls/hr Dopamine HCl/Dextrose (Dopamine 400mg/250ml D5w) 400 mg in 250 mls @ 16.925 mls /hr IV .[id number] PRN; Protocol; 5 MCG/KG/MIN PRN Reason: TITRATE PER MD ORDER Norepinephrine Bitartrate 4 mg (/ Sodium Chloride) 254 mls @ 15.24 mls/hr IV .[id number] PRN; Protocol; 4 MCG/MIN PRN Reason: TITRATE PER MD ORDER Last Admin: 03/22/17 16:27 Dose: 3 mcg/min, 11.43 mls/hr Sodium Chloride (Sodium Chloride 0.9%) 1,000 mls @ 150 mls/hr IV .[id number] [facility] Last Admin: 03/22/17 18:21 Dose: 150 mls/hr Insulin Aspart (Novolog) 0 unit SC ACHS [facility] PRN Reason: Protocol Last Admin: 03/22/17 17:00 Dose: Not Given Methylprednisolone (Solu-Medrol) 40 mg IVP Q12 [facility] Last Admin: 03/22/17 10:15 Dose: 40 mg Metoprolol Tartrate (Lopressor) 25 mg PO BID [facility] Last Admin: 03/22/17 17:52 Dose: Not Given Montelukast Sodium (Singulair) 10 mg PO HS [facility] Last Admin: 03/21/17 22:20 Dose: 10 mg Multivitamins (Hexavitamin) 1 tab PO DAILY [facility] Last Admin: 03/22/17 12:05 Dose: Not Given Potassium Chloride (K-Dur 20 Meq Er Tab) 20 meq PO DAILY [facility] Last Admin: 03/22/17 12:05 Dose: Not Given Raltegravir (Isentress) 400 mg PO BID [facility] Last Admin: 03/22/17 17:51 Dose: 400 mg Rosuvastatin Calcium (Crestor) 20 mg PO HS [facility] Last Admin: 03/21/17 22:20 Dose: 20 mg Senna/Docusate Sodium (Senokot S 50 Mg-8.6 Mg) 1 tab PO HS PRN PRN Reason: Constipation Last Admin: 03/19/17 21:40 Dose: 1 tab Sertraline HCl (Zoloft) 50 mg PO DAILY [facility] Last Admin: 03/22/17 12:07 Dose: Not Given Trazodone HCl (Desyrel) 50 mg PO HS [facility] Last Admin: 03/21/17 22:20 Dose: 50 mg Results - Vital Signs Recent Vital Signs: Last Vital Signs Temp 98.4 F 03/22/17 16:00 Pulse 95 H 03/22/17 18:10 Resp 24 03/22/17 16:27 BP 108/60 03/22/17 17:54 Pulse Ox 94 L 03/22/17 18:10 - Labs Result Diagrams: 03/22/17 09:58 03/22/17 09:58 Labs: Laboratory Results - last 24 hr 03/21/17 03/22/17 03/22/17 21:10 06:15 09:36 WBC RBC Hgb Hct MCV MCH MCHC RDW Plt Count MPV Neut % (Auto) Lymph % (Auto) [place] % (Auto) Eos % (Auto) Baso % (Auto) Neut # Lymph # [place] # Eos # Baso # Neutrophils % (Manual) Band Neutrophils % Lymphocytes % (Manual) Monocytes % (Manual) Platelet Estimate Polychromasia Hypochromasia (manual) Anisocytosis (manual) Microcytosis (manual) Ovalocytes Puncture Site pCO2 pO2 HCO3 ABG pH ABG Total CO2 ABG O2 Saturation ABG Base Excess Yahir Test ABG Potassium A-a O2 Difference Respiratory Index Sodium Chloride Glucose Lactate Vent Mode FiO2 Inspiratory BiPAP Expiratory BiPAP Potassium Carbon Dioxide Anion Gap BUN Creatinine Est GFR ( Amer) Est GFR (Non-Af Amer) POC Glucose (mg/dL) 204 H 239 H 248 H Random Glucose Calcium Total Bilirubin AST ALT Alkaline Phosphatase Total Protein Albumin Globulin Albumin/Globulin Ratio Arterial Blood Potassium Ur L.pneumophila Ag 03/22/17 03/22/17 03/22/17 09:52 09:58 09:58 WBC 8.0 RBC 4.43 Hgb 9.2 L Hct 31.8 L MCV 71.9 L MCH 20.8 L MCHC 28.9 L RDW 31.6 H Plt Count 35 L D MPV 8.5 Neut % (Auto) 97.4 H Lymph % (Auto) 0.9 L [place] % (Auto) 0.9 Eos % (Auto) 0.3 Baso % (Auto) 0.5 Neut # 7.8 H Lymph # 0.1 L [place] # 0.1 Eos # 0.0 Baso # 0.0 Neutrophils % (Manual) 52 Band Neutrophils % 46 H* Lymphocytes % (Manual) 1 L Monocytes % (Manual) 1 Platelet Estimate Decreased L Polychromasia Slight Hypochromasia (manual) Moderate Anisocytosis (manual) Marked Microcytosis (manual) Slight Ovalocytes Slight Puncture Site Rra pCO2 41 pO2 67 L HCO3 36.6 H ABG pH 7.58 H ABG Total CO2 39.7 H ABG O2 Saturation 97.3 ABG Base Excess 15.0 H Yahir Test Po ABG Potassium 3.5 L A-a O2 Difference 238.0 Respiratory Index 3.6 Sodium 141.0 140 Chloride 105.0 95 L Glucose 222 H Lactate 1.7 Vent Mode Bipap FiO2 50.0 Inspiratory BiPAP 14 Expiratory BiPAP 6 Potassium 3.5 L Carbon Dioxide 35 H Anion Gap 14 BUN 42 H Creatinine 1.1 Est GFR ( Amer) > 60 Est GFR (Non-Af Amer) > 60 POC Glucose (mg/dL) Random Glucose 208 H Calcium 7.6 L Total Bilirubin 2.6 H AST 160 H D ALT 140 H D Alkaline Phosphatase 208 H Total Protein 4.8 L Albumin 2.1 L D Globulin 2.6 Albumin/Globulin Ratio 0.8 L Arterial Blood Potassium 3.5 L Ur L.pneumophila Ag 03/22/17 03/22/17 03/22/17 11:36 13:49 18:01 WBC RBC Hgb Hct MCV MCH MCHC RDW Plt Count MPV Neut % (Auto) Lymph % (Auto) [place] % (Auto) Eos % (Auto) Baso % (Auto) Neut # Lymph # [place] # Eos # Baso # Neutrophils % (Manual) Band Neutrophils % Lymphocytes % (Manual) Monocytes % (Manual) Platelet Estimate Polychromasia Hypochromasia (manual) Anisocytosis (manual) Microcytosis (manual) Ovalocytes Puncture Site pCO2 pO2 HCO3 ABG pH ABG Total CO2 ABG O2 Saturation ABG Base Excess Yahir Test ABG Potassium A-a O2 Difference Respiratory Index Sodium Chloride Glucose Lactate Vent Mode FiO2 Inspiratory BiPAP Expiratory BiPAP Potassium Carbon Dioxide Anion Gap BUN Creatinine Est GFR ( Amer) Est GFR (Non-Af Amer) POC Glucose (mg/dL) 201 H 199 H Random Glucose Calcium Total Bilirubin AST ALT Alkaline Phosphatase Total Protein Albumin Globulin Albumin/Globulin Ratio Arterial Blood Potassium Ur L.pneumophila Ag Negative Attending/Attestation - Attestation I have personally seen and examined this patient.: Yes I have fully participated in the care of the patient.: Yes I have reviewed all pertinent clinical information: Yes Notes (Text): 03/22/17 18:46 Patient seen and examined. 66-year-old male transferred to ICU for hypotension/hypoxemia Being treated for urinary tract infection with cultures positive for gram- negative bacilli Continue IV antibiotics fluid resuscitation and pressors as needed Follow-up lactate level Continue present medication
[2017-03-22] MEDS: Sodium Chloride 0.9% 1,000 ML IV SCH ×2 (18:21→23:18)
--- NOTE | 2017-03-22 21:31 | PCM.RRTMUL ---
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 TECHNICIAN - A) Acute Change in Patient: (Select all that apply): Acute change in mental status, Acute change in SBP below - A) Initial Vital Signs: Blood Pressure: 84/54 Pulse Rate: 105 Respiratory Rate: 20 Temperature: 98.8 F O2 Sat by Pulse Oximetry: 89 - B) Neurological Status (Select all that apply): Responsive, Confused, Lethargic - C) Respiratory Oxygen Delivery Method: BiPAP @% (16-4-55) - Constitutional Appears: In Acute Distress, Chronically Ill - Eyes Eye Exam: EOMI - Respiratory Exam Respiratory Exam: Accessory Muscle Use, Stridor - Cardiovascular Exam Cardiovascular Exam: Tachycardia, +S1, +S2 - Neurological Exam Neurological Exam: Altered Plan - B. Assessment of Findings&Treatment Plan CXR ABG CBC CMP Lactic acid Mag Phos PT/INR PTT MATI Started on Dopamine 5mcg/kg/hour ICU consulted. Patient transferred to ICU.
[2017-03-23] MEDS: Albuterol-Ipratrop 3 mg / 0.5 (3 ml) UD INH SCH ×5 (03:05→19:49)
[2017-03-23 04:57] LABS: ABG ALLEN TEST POS; ARTERIAL BLOOD GAS MODE BIPAP; ARTERIAL BLOOD HGB O2 SAT 96.9 % (95.0-98.0); CARBOXYHEMOGLOBIN 1.6 % (0.5-1.5); DRAW SITE LR; HHB 1.1 % (0.0-5.0); METHEMOGLOBIN 0.5 % (0.0-3.0)
[2017-03-23] MEDS: Sodium Chloride 0.9% 1,000 ML IV SCH ×4 (06:22→20:09)
[2017-03-23 06:59] LABS: BASO % 0.1 % (0.0-2.0); EOS # 0.1 K/uL (0.0-0.7); EOS % 1.4 % (0.0-4.0); LYMPH # 0.1 K/uL (1.0-4.3); LYMPH % 1.5 % (20.0-40.0); MEAN CELL VOLUME 72.4 fL (80.0-94.0); MEAN CORPUSCULAR HEMOGLOBIN 21.1 pg (27.0-31.0); MEAN CORPUSCULAR HGB CONC 29.1 g/dL (33.0-37.0); MONO # 0.1 K/uL (0.0-0.8); MONO % 1.3 % (0.0-10.0); RED CELL DISTRIBUTION WIDTH 30.9 % (11.5-14.5); WHITE BLOOD COUNT 8.4 K/uL (4.8-10.8)
[2017-03-23 07:12] LABS: ALB/GLOB RATIO 0.8 (1.0-2.1); ALKALINE PHOSPHATASE 148 U/L (38-126); ALT/SGPT 143 U/L (21-72); AST/SGOT 137 U/L (17-59); BLOOD UREA NITROGEN 41 mg/dL (9-20); CALCIUM 7.2 mg/dl (8.6-10.4); CARBON DIOXIDE 33 mmol/L (22-30); CHLORIDE 101 mmol/L (98-107); GFR AFRICAN-AMERICAN > 60; GLUCOSE,RANDOM 183 mg/dL (75-110); MAGNESIUM 1.8 mg/dL (1.6-2.3); PHOSPHOROUS 2.1 mg/dL (2.5-4.5); POTASSIUM 3.1 mmol/L (3.6-5.2); SODIUM 142 mmol/L (132-148); TOTAL PROTEIN 4.6 g/dL (6.3-8.3)
[2017-03-23 07:18] LABS: PLATELET COUNT 19 K/uL (130-400)
[2017-03-23] MEDS: (Novolog) Insulin Aspart, Recombinant 100 u/ml 10 ml vial SC SCH ×4 (07:30→22:00)
[2017-03-23 09:28] LABS: METAMYELOCYTE 2 % (0-0); TOTAL CELLS COUNTED 100
[2017-03-23 09:29] LABS: NEUTROPHIL 75 % (50-75)
[2017-03-23] MEDS: MethylPREDNISolone 40 mg Vial IVP SCH ×2 (10:04→21:46)
[2017-03-23] MEDS: Multiple Vitamins Tab PO SCH (10:04)
[2017-03-23] MEDS: Emtricitabine-Tenofovir 200 mg-300 mg Tab PO SCH (10:05)
[2017-03-23] MEDS: Potassium Chloride 20 mEq ER Tab PO SCH (10:08)
--- NOTE | 2017-03-23 14:27 | CP.CCUPN ---
CCU Subjective - Physician Review Events Since Last Encounter (Free Text): 03/23/17 14:24 Patient seen and examined in the intensive care unit. He has discussed with STAFF in the morning rounds. namrata is a 66 year old male with medical history of COPD, emphysema, ashtma, Lung cancer, arthritis, CHF, DM, multiple fractures, HIV, and hyperlipidemia, presents to the ICU with hypotension and hypoxia. Rapid response was called due to blood pressure of 79/46 and O2 saturation of 89%. Patient has been hopsitalized since 03/08/17 for dyspnea, COPD and CHF exacerbation. Patient more awake and responsive Good urine output Able to tolerate clear liquids Off pressors CCU Objective - Vital Signs / Intake & Output Intake and Output (Last 8hrs): Intake & Output 03/22/17 03/23/17 03/23/17 22:59 06:59 14:59 Intake Total 1083.8 1457.8 150 Output Total 1125 850 125 Balance -41.2 607.8 25 Intake: IV 254 Intake, IV Amount 1083.8 1203.8 150 Right Port-A-Cath 1050 1200 150 right port 33.8 3.8 Output: Urine 1125 850 125 Urethral (Price) 1125 850 125 Other: # Bowel Movements 1 0 - Physical Exam Head: Positive for: Atraumatic, Normocephalic Mouth: Positive for: Moist Mucous Membranes Neck: Positive for: Normal Range of Motion Respiratory/Chest: Positive for: Clear to Auscultation Cardiovascular: Positive for: Regular Rate and Rhythm Abdomen: Positive for: Normal Bowel Sounds Upper Extremity: Positive for: Normal Inspection, Edema Lower Extremity: Positive for: Edema Psychiatric: Positive for: Alert - Medications Active Medications: Active Medications Generic Name Dose Route Start Last Admin Trade Name Freq PRN Reason Stop Dose Admin Acetaminophen 650 mg 03/08/17 21:06 03/22/17 10:15 Tylenol 325mg Tab PO 650 mg Q6H PRN Administration Fever >100.4 F Albuterol/Ipratropium 3 ml 03/19/17 20:00 03/23/17 12:55 Duoneb 3 Mg/0.5 Mg (3 Ml) Ud INH 3 ml RQ4 BLAYNE Administration Benztropine Mesylate 1 mg 03/09/17 10:00 03/23/17 10:05 Cogentin PO 1 mg BID BLAYNE Administration Emtricitabine/Tenofovir 1 tab 03/09/17 10:00 03/23/17 10:05 Truvada 200 Mg-300 Mg PO 1 tab DAILY BLAYNE Administration Famotidine 20 mg 03/09/17 10:00 03/23/17 10:04 Pepcid PO 20 mg DAILY BLAYNE Administration Ferrous Sulfate 325 mg 03/09/17 10:00 03/23/17 10:04 Feosol PO 325 mg DAILY BLAYNE Administration Fluphenazine HCl 5 mg 03/09/17 10:00 03/23/17 10:10 Prolixin PO 5 mg BID BLAYNE Administration Furosemide 20 mg 03/09/17 10:00 03/23/17 10:09 Lasix PO 20 mg DAILY BLAYNE Administration Hydroxyzine HCl 25 mg 03/08/17 21:06 03/21/17 17:51 Atarax PO 25 mg Q6 PRN Administration Itching / Pruritus Cefepime HCl 1 gm/ Dextrose 50 mls @ 100 mls/hr 03/21/17 14:00 03/23/17 02:02 IVPB 100 mls/hr Q12H BLAYNE Administration Dopamine HCl/Dextrose 400 mg in 250 mls @ 16.925 mls/hr 03/22/17 10:14 Dopamine 400mg/250ml D5w IV .[id number] PRN TITRATE PER MD ORDER Protocol 5 MCG/KG/MIN Norepinephrine Bitartrate 4 mg 254 mls @ 15.24 mls/hr 03/22/17 10:56 23:12 / Sodium Chloride IV 3 mcg/min .[id number] PRN 11.43 mls/hr TITRATE PER MD ORDER Administration Protocol 4 MCG/MIN Sodium Chloride 1,000 mls @ 100 mls/hr 03/23/17 09:46 03/23/17 10:10 Sodium Chloride 0.9% IV Not Given .Q10H BLAYNE Insulin Aspart 0 unit 03/08/17 22:00 03/23/17 12:16 Novolog SC 3 unit ACHS BLAYNE Administration Protocol Methylprednisolone 40 mg 03/12/17 22:00 03/23/17 10:04 Solu-Medrol IVP 40 mg Q12 BLANYE Administration Metoprolol Tartrate 25 mg 03/09/17 10:00 03/23/17 10:04 Lopressor PO 25 mg BID BLAYNE Administration Montelukast Sodium 10 mg 03/08/17 22:00 03/22/17 22:40 Singulair PO Not Given HS BLAYNE Multivitamins 1 tab 03/09/17 10:00 03/23/17 10:04 Hexavitamin PO 1 tab DAILY BLAYNE Administration Potassium Chloride 20 meq 03/09/17 10:00 03/23/17 10:08 K-Dur 20 Meq Er Tab PO 20 meq DAILY BLAYNE Administration Raltegravir 400 mg 03/09/17 10:00 03/23/17 10:07 Isentress PO 400 mg BID BLAYNE Administration Rosuvastatin Calcium 20 mg 03/08/17 22:00 03/22/17 21:59 Crestor PO Not Given HS BLAYNE Senna/Docusate Sodium 1 tab 03/08/17 21:06 03/19/17 21:40 Senokot S 50 Mg-8.6 Mg PO 1 tab HS PRN Administration Constipation Sertraline HCl 50 mg 03/09/17 10:00 03/23/17 10:04 Zoloft PO 50 mg DAILY BLAYNE Administration Trazodone HCl 50 mg 03/08/17 22:00 03/22/17 21:59 Desyrel PO Not Given HS BLAYNE - Patient Studies Lab Studies: Microbiology Studies 03/22/17 14:00 MRSA Culture (Admit) - Final Naris MRSA NOT DETECTED 03/22/17 16:30 Urine Culture - Preliminary Urine,Catheterized Gram Negative Kvng 03/21/17 15:00 Urine Culture - Final Urine,Price Proteus Mirabilis 03/21/17 14:30 Blood Culture - Final Blood Gram Negative Kvng Gram Stain - Final 03/21/17 15:00 Blood Culture - Preliminary Blood Gram Negative Kvng Gram Stain - Final Lab Studies 03/23/17 03/23/17 03/23/17 Range/Units 11:13 08:22 07:20 WBC (4.8-10.8) K/uL RBC (4.40-5.90) Mil/uL Hgb (12.0-18.0) g/dL Hct (35.0-51.0) % MCV (80.0-94.0) fL MCH (27.0-31.0) pg MCHC (33.0-37.0) g/dL RDW (11.5-14.5) % Plt Count (130-400) K/uL MPV (7.2-11.7) fL Neut % (Auto) (50.0-75.0) % Lymph % (Auto) (20.0-40.0) % Morrow % (Auto) (0.0-10.0) % Eos % (Auto) (0.0-4.0) % Baso % (Auto) (0.0-2.0) % Neut # (1.8-7.0) K/uL Lymph # (1.0-4.3) K/uL Morrow # (0.0-0.8) K/uL Eos # (0.0-0.7) K/uL Baso # (0.0-0.2) K/uL Neutrophils % (Manual) (50-75) % Band Neutrophils % (0-2) % Lymphocytes % (Manual) (20-40) % Monocytes % (Manual) (0-10) % Metamyelocytes % (0-0) % Platelet Estimate (NORMAL) Polychromasia Hypochromasia (manual) Poikilocytosis (manual Anisocytosis (manual) Microcytosis (manual) Tear Drop Cells Ovalocytes Puncture Site pCO2 (35-45) mm/Hg pO2 (80-100) mm/Hg HCO3 (21-28) mmol/L ABG pH (7.35-7.45) ABG Total CO2 (22-28) mmol/L ABG O2 Saturation (95-98) % ABG Base Excess (-2.0-3.0) mmol/L ABG Hemoglobin (11.7-17.4) g/dL ABG Carboxyhemoglobin (0.5-1.5) % POC ABG HHb (Measured) (0.0-5.0) % ABG Methemoglobin (0.0-3.0) % Yahir Test A-a O2 Difference mm/Hg Respiratory Index Hgb O2 Saturation (95.0-98.0) % Vent Mode FiO2 % Inspiratory BiPAP Expiratory BiPAP Sodium (132-148) mmol/L Potassium (3.6-5.2) mmol/L Chloride (98-107) mmol/L Carbon Dioxide (22-30) mmol/L Anion Gap (10-20) BUN (9-20) mg/dL Creatinine (0.8-1.5) MG/DL Est GFR ( Amer) Est GFR (Non-Af Amer) POC Glucose (mg/dL) 224 H 198 H (65-110) mg/dL Random Glucose (75-110) mg/dL Calcium (8.6-10.4) mg/dl Phosphorus (2.5-4.5) mg/dL Magnesium (1.6-2.3) mg/dL Total Bilirubin (0.2-1.3) mg/dL AST (17-59) U/L ALT (21-72) U/L Alkaline Phosphatase (38-126) U/L Total Protein (6.3-8.3) g/dL Albumin (3.5-5.0) g/dL Globulin (2.2-3.9) gm/dL Albumin/Globulin Ratio (1.0-2.1) Ur L.pneumophila Ag (NEGATIVE) Blood Type O POSITIVE Antibody Screen Negative 03/23/17 03/23/17 03/23/17 Range/Units 06:47 06:47 04:40 WBC 8.4 (4.8-10.8) K/uL RBC 4.28 L (4.40-5.90) Mil/uL Hgb 9.0 L (12.0-18.0) g/dL Hct 31.0 L (35.0-51.0) % MCV 72.4 L (80.0-94.0) fL MCH 21.1 L (27.0-31.0) pg MCHC 29.1 L (33.0-37.0) g/dL RDW 30.9 H (11.5-14.5) % Plt Count 19 L* D (130-400) K/uL MPV 9.0 (7.2-11.7) fL Neut % (Auto) 95.7 H (50.0-75.0) % Lymph % (Auto) 1.5 L (20.0-40.0) % Morrow % (Auto) 1.3 (0.0-10.0) % Eos % (Auto) 1.4 (0.0-4.0) % Baso % (Auto) 0.1 (0.0-2.0) % Neut # 8.0 H (1.8-7.0) K/uL Lymph # 0.1 L (1.0-4.3) K/uL Morrow # 0.1 (0.0-0.8) K/uL Eos # 0.1 (0.0-0.7) K/uL Baso # 0.0 (0.0-0.2) K/uL Neutrophils % (Manual) 75 (50-75) % Band Neutrophils % 19 H* (0-2) % Lymphocytes % (Manual) 2 L (20-40) % Monocytes % (Manual) 2 (0-10) % Metamyelocytes % 2 H (0-0) % Platelet Estimate Markedly decreased L (NORMAL) Polychromasia Slight Hypochromasia (manual) Slight Poikilocytosis (manual Slight Anisocytosis (manual) Marked Microcytosis (manual) Slight Tear Drop Cells Slight Ovalocytes Slight Puncture Site Lr pCO2 55 H (35-45) mm/Hg pO2 159 H (80-100) mm/Hg HCO3 33.3 H (21-28) mmol/L ABG pH 7.43 (7.35-7.45) ABG Total CO2 38.2 H (22-28) mmol/L ABG O2 Saturation 98.9 H (95-98) % ABG Base Excess 10.7 H (-2.0-3.0) mmol/L ABG Hemoglobin 9.7 L (11.7-17.4) g/dL ABG Carboxyhemoglobin 1.6 H (0.5-1.5) % POC ABG HHb (Measured) 1.1 (0.0-5.0) % ABG Methemoglobin 0.5 (0.0-3.0) % Yahir Test Pos A-a O2 Difference 129.0 mm/Hg Respiratory Index 0.8 Hgb O2 Saturation 96.9 (95.0-98.0) % Vent Mode Bipap FiO2 50.0 % Inspiratory BiPAP 14 Expiratory BiPAP 7 Sodium 142 (132-148) mmol/L Potassium 3.1 L (3.6-5.2) mmol/L Chloride 101 (98-107) mmol/L Carbon Dioxide 33 H (22-30) mmol/L Anion Gap 11 (10-20) BUN 41 H (9-20) mg/dL Creatinine 0.9 (0.8-1.5) MG/DL Est GFR ( Amer) > 60 Est GFR (Non-Af Amer) > 60 POC Glucose (mg/dL) (65-110) mg/dL Random Glucose 183 H (75-110) mg/dL Calcium 7.2 L (8.6-10.4) mg/dl Phosphorus 2.1 L (2.5-4.5) mg/dL Magnesium 1.8 (1.6-2.3) mg/dL Total Bilirubin 1.0 (0.2-1.3) mg/dL AST 137 H (17-59) U/L ALT 143 H (21-72) U/L Alkaline Phosphatase 148 H D (38-126) U/L Total Protein 4.6 L (6.3-8.3) g/dL Albumin 2.1 L (3.5-5.0) g/dL Globulin 2.5 (2.2-3.9) gm/dL Albumin/Globulin Ratio 0.8 L (1.0-2.1) Ur L.pneumophila Ag (NEGATIVE) Blood Type Antibody Screen 03/22/17 03/22/17 03/22/17 Range/Units 21:28 18:01 13:49 WBC (4.8-10.8) K/uL RBC (4.40-5.90) Mil/uL Hgb (12.0-18.0) g/dL Hct (35.0-51.0) % MCV (80.0-94.0) fL MCH (27.0-31.0) pg MCHC (33.0-37.0) g/dL RDW (11.5-14.5) % Plt Count (130-400) K/uL MPV (7.2-11.7) fL Neut % (Auto) (50.0-75.0) % Lymph % (Auto) (20.0-40.0) % Morrow % (Auto) (0.0-10.0) % Eos % (Auto) (0.0-4.0) % Baso % (Auto) (0.0-2.0) % Neut # (1.8-7.0) K/uL Lymph # (1.0-4.3) K/uL Morrow # (0.0-0.8) K/uL Eos # (0.0-0.7) K/uL Baso # (0.0-0.2) K/uL Neutrophils % (Manual) (50-75) % Band Neutrophils % (0-2) % Lymphocytes % (Manual) (20-40) % Monocytes % (Manual) (0-10) % Metamyelocytes % (0-0) % Platelet Estimate (NORMAL) Polychromasia Hypochromasia (manual) Poikilocytosis (manual Anisocytosis (manual) Microcytosis (manual) Tear Drop Cells Ovalocytes Puncture Site pCO2 (35-45) mm/Hg pO2 (80-100) mm/Hg HCO3 (21-28) mmol/L ABG pH (7.35-7.45) ABG Total CO2 (22-28) mmol/L ABG O2 Saturation (95-98) % ABG Base Excess (-2.0-3.0) mmol/L ABG Hemoglobin (11.7-17.4) g/dL ABG Carboxyhemoglobin (0.5-1.5) % POC ABG HHb (Measured) (0.0-5.0) % ABG Methemoglobin (0.0-3.0) % Yahir Test A-a O2 Difference mm/Hg Respiratory Index Hgb O2 Saturation (95.0-98.0) % Vent Mode FiO2 % Inspiratory BiPAP Expiratory BiPAP Sodium (132-148) mmol/L Potassium (3.6-5.2) mmol/L Chloride (98-107) mmol/L Carbon Dioxide (22-30) mmol/L Anion Gap (10-20) BUN (9-20) mg/dL Creatinine (0.8-1.5) MG/DL Est GFR ( Amer) Est GFR (Non-Af Amer) POC Glucose (mg/dL) 219 H 199 H (65-110) mg/dL Random Glucose (75-110) mg/dL Calcium (8.6-10.4) mg/dl Phosphorus (2.5-4.5) mg/dL Magnesium (1.6-2.3) mg/dL Total Bilirubin (0.2-1.3) mg/dL AST (17-59) U/L ALT (21-72) U/L Alkaline Phosphatase (38-126) U/L Total Protein (6.3-8.3) g/dL Albumin (3.5-5.0) g/dL Globulin (2.2-3.9) gm/dL Albumin/Globulin Ratio (1.0-2.1) Ur L.pneumophila Ag Negative (NEGATIVE) Blood Type Antibody Screen Laboratory Results - last 24 hr 03/22/17 03/22/17 03/22/17 13:49 18:01 21:28 WBC RBC Hgb Hct MCV MCH MCHC RDW Plt Count MPV Neut % (Auto) Lymph % (Auto) Morrow % (Auto) Eos % (Auto) Baso % (Auto) Neut # Lymph # Morrow # Eos # Baso # Neutrophils % (Manual) Band Neutrophils % Lymphocytes % (Manual) Monocytes % (Manual) Metamyelocytes % Platelet Estimate Polychromasia Hypochromasia (manual) Poikilocytosis (manual Anisocytosis (manual) Microcytosis (manual) Tear Drop Cells Ovalocytes Puncture Site pCO2 pO2 HCO3 ABG pH ABG Total CO2 ABG O2 Saturation ABG Base Excess ABG Hemoglobin ABG Carboxyhemoglobin POC ABG HHb (Measured) ABG Methemoglobin Yahir Test A-a O2 Difference Respiratory Index Hgb O2 Saturation Vent Mode FiO2 Inspiratory BiPAP Expiratory BiPAP Sodium Potassium Chloride Carbon Dioxide Anion Gap BUN Creatinine Est GFR ( Amer) Est GFR (Non-Af Amer) POC Glucose (mg/dL) 199 H 219 H Random Glucose Calcium Phosphorus Magnesium Total Bilirubin AST ALT Alkaline Phosphatase Total Protein Albumin Globulin Albumin/Globulin Ratio Ur L.pneumophila Ag Negative Blood Type Antibody Screen 03/23/17 03/23/17 03/23/17 04:40 06:47 06:47 WBC 8.4 RBC 4.28 L Hgb 9.0 L Hct 31.0 L MCV 72.4 L MCH 21.1 L MCHC 29.1 L RDW 30.9 H Plt Count 19 L* D MPV 9.0 Neut % (Auto) 95.7 H Lymph % (Auto) 1.5 L Morrow % (Auto) 1.3 Eos % (Auto) 1.4 Baso % (Auto) 0.1 Neut # 8.0 H Lymph # 0.1 L Morrow # 0.1 Eos # 0.1 Baso # 0.0 Neutrophils % (Manual) 75 Band Neutrophils % 19 H* Lymphocytes % (Manual) 2 L Monocytes % (Manual) 2 Metamyelocytes % 2 H Platelet Estimate Markedly decreased L Polychromasia Slight Hypochromasia (manual) Slight Poikilocytosis (manual Slight Anisocytosis (manual) Marked Microcytosis (manual) Slight Tear Drop Cells Slight Ovalocytes Slight Puncture Site Lr pCO2 55 H pO2 159 H HCO3 33.3 H ABG pH 7.43 ABG Total CO2 38.2 H ABG O2 Saturation 98.9 H ABG Base Excess 10.7 H ABG Hemoglobin 9.7 L ABG Carboxyhemoglobin 1.6 H POC ABG HHb (Measured) 1.1 ABG Methemoglobin 0.5 Yahir Test Pos A-a O2 Difference 129.0 Respiratory Index 0.8 Hgb O2 Saturation 96.9 Vent Mode Bipap FiO2 50.0 Inspiratory BiPAP 14 Expiratory BiPAP 7 Sodium 142 Potassium 3.1 L Chloride 101 Carbon Dioxide 33 H Anion Gap 11 BUN 41 H Creatinine 0.9 Est GFR ( Amer) > 60 Est GFR (Non-Af Amer) > 60 POC Glucose (mg/dL) Random Glucose 183 H Calcium 7.2 L Phosphorus 2.1 L Magnesium 1.8 Total Bilirubin 1.0 AST 137 H ALT 143 H Alkaline Phosphatase 148 H D Total Protein 4.6 L Albumin 2.1 L Globulin 2.5 Albumin/Globulin Ratio 0.8 L Ur L.pneumophila Ag Blood Type Antibody Screen 03/23/17 03/23/17 03/23/17 07:20 08:22 11:13 WBC RBC Hgb Hct MCV MCH MCHC RDW Plt Count MPV Neut % (Auto) Lymph % (Auto) Morrow % (Auto) Eos % (Auto) Baso % (Auto) Neut # Lymph # Morrow # Eos # Baso # Neutrophils % (Manual) Band Neutrophils % Lymphocytes % (Manual) Monocytes % (Manual) Metamyelocytes % Platelet Estimate Polychromasia Hypochromasia (manual) Poikilocytosis (manual Anisocytosis (manual) Microcytosis (manual) Tear Drop Cells Ovalocytes Puncture Site pCO2 pO2 HCO3 ABG pH ABG Total CO2 ABG O2 Saturation ABG Base Excess ABG Hemoglobin ABG Carboxyhemoglobin POC ABG HHb (Measured) ABG Methemoglobin Yahir Test A-a O2 Difference Respiratory Index Hgb O2 Saturation Vent Mode FiO2 Inspiratory BiPAP Expiratory BiPAP Sodium Potassium Chloride Carbon Dioxide Anion Gap BUN Creatinine Est GFR ( Amer) Est GFR (Non-Af Amer) POC Glucose (mg/dL) 198 H 224 H Random Glucose Calcium Phosphorus Magnesium Total Bilirubin AST ALT Alkaline Phosphatase Total Protein Albumin Globulin Albumin/Globulin Ratio Ur L.pneumophila Ag Blood Type O POSITIVE Antibody Screen Negative Fingerstick Blood Sugar Results: 118 Critical Care Progress Note - Nutrition Nutrition: Nutrition Category Date Time Status Liquid Diet [DIET] Diets 03/23/17 Lunch Active Assessment/Plan (1) Sepsis Current Visit: Yes Status: Acute Comment: His urine and blood culture positive for gram-negative rods Continue IV antibiotics Continue IV fluids Patient is off pressors and more awake and responsive (2) COPD (chronic obstructive pulmonary disease) Current Visit: Yes Status: Acute (3) Change in mental status Current Visit: Yes Status: Acute
[2017-03-23] MEDS ORDERED: Digoxin 500 mcg/2ml (0.5 mg/2ml) Inj IVP ONE (16:02)
[2017-03-23 16:29] VITALS: PULSE 132
[2017-03-23] MEDS: Vitamins A & D Oint UD Foilpak TOP SCH (22:00)
[2017-03-24] MEDS: Albuterol-Ipratrop 3 mg / 0.5 (3 ml) UD INH SCH ×6 (00:09→20:16)
[2017-03-24] MEDS: Vitamins A & D Oint UD Foilpak TOP SCH ×3 (04:34→07:46)
[2017-03-24] MEDS: Sodium Chloride 0.9% 1,000 ML IV SCH (06:12)
[2017-03-24 07:11] LABS: CHLORIDE 102 mmol/L (98-107); POTASSIUM 3.4 mmol/L (3.6-5.2); SODIUM 142 mmol/L (132-148)
[2017-03-24 07:13] LABS: ALB/GLOB RATIO 0.8 (1.0-2.1); AST/SGOT 78 U/L (17-59); BASO % 0.1 % (0.0-2.0); BILIRUBIN,TOTAL 0.9 mg/dL (0.2-1.3); CARBON DIOXIDE 32 mmol/L (22-30); EOS % 0.3 % (0.0-4.0); GFR AFRICAN-AMERICAN > 60; HEMATOCRIT 28.7 % (35.0-51.0); LYMPH # 0.1 K/uL (1.0-4.3); MEAN CELL VOLUME 72.5 fL (80.0-94.0); MEAN CORPUSCULAR HEMOGLOBIN 21.8 pg (27.0-31.0); MEAN CORPUSCULAR HGB CONC 30.1 g/dL (33.0-37.0); MEAN PLATELET VOLUME 8.6 fL (7.2-11.7); MONO # 0.2 K/uL (0.0-0.8); MONO % 1.5 % (0.0-10.0); NRBC % 0.1 % (0.0-2.0); RED CELL DISTRIBUTION WIDTH 31.4 % (11.5-14.5); TOTAL PROTEIN 4.8 g/dL (6.3-8.3); WHITE BLOOD COUNT 10.3 K/uL (4.8-10.8)
[2017-03-24 07:14] LABS: ALKALINE PHOSPHATASE 183 U/L (38-126); ALT/SGPT 128 U/L (21-72); BLOOD UREA NITROGEN 40 mg/dL (9-20); CALCIUM 7.3 mg/dl (8.6-10.4); GLUCOSE,RANDOM 203 mg/dL (75-110); MAGNESIUM 1.7 mg/dL (1.6-2.3)
[2017-03-24 07:15] LABS: PLATELET COUNT 50 K/uL (130-400)
[2017-03-24 08:34] LABS: METAMYELOCYTE 1 % (0-0); NEUTROPHIL 80 % (50-75); TOTAL CELLS COUNTED 100
[2017-03-24 08:36] LABS: SPHEROCYTES SLIGHT
[2017-03-24] MEDS: (Novolog) Insulin Aspart, Recombinant 100 u/ml 10 ml vial SC SCH ×4 (08:44→21:26)
[2017-03-24] MEDS ORDERED: Vitamins A & D Oint UD Foilpak TOP PRN (09:22)
[2017-03-24] MEDS ORDERED: Potassium Phosphate 15 MMOLE in Sodium Chloride 0.9% 250 ML IV ONE (10:00)
[2017-03-24] MEDS: MethylPREDNISolone 40 mg Vial IVP SCH ×2 (10:21→21:26)
[2017-03-24] MEDS: Potassium Chloride 20 mEq ER Tab PO SCH (10:22)
[2017-03-24] MEDS: Emtricitabine-Tenofovir 200 mg-300 mg Tab PO SCH (10:25)
[2017-03-24] MEDS: Multiple Vitamins Tab PO SCH (10:27)
[2017-03-24] MEDS ORDERED: Vitamins A & D Oint UD Foilpak TOP SCH (12:00)
--- NOTE | 2017-03-24 12:38 | CP.CCUPN ---
CCU Subjective - Physician Review Events Since Last Encounter (Free Text): 03/24/17 12:35 Patient seen and examined in the intensive care unit. Case discussed with STAFF in the morning. More lethargic but opened eyes to stimuli Afebrile Good urine output Off pressors Antibiotics switched CCU Objective - Vital Signs / Intake & Output Vital Signs (Last 4 hours): Vital Signs Pulse Resp BP Pulse Ox 03/24/17 11:00 88 10 L 98 03/24/17 10:33 88 10 L 98 03/24/17 10:00 87 10 L 100 03/24/17 09:32 88 15 119/47 L 99 03/24/17 09:00 92 H 16 88 L Intake and Output (Last 8hrs): Intake & Output 03/23/17 03/24/17 03/24/17 22:59 06:59 14:59 Intake Total 1090 1250 1392 Output Total 450 415 530 Balance 640 835 862 Intake: Intake, IV Amount 700 850 362 Right Port-A-Cath 700 850 200 right port 162 Oral [phone] Output: Urine 450 415 530 Urethral (Price) 450 415 530 Other: # Bowel Movements 0 1 - Physical Exam Head: Positive for: Atraumatic, Normocephalic Mouth: Positive for: Moist Mucous Membranes Neck: Positive for: Normal Range of Motion Respiratory/Chest: Positive for: Clear to Auscultation Cardiovascular: Positive for: Regular Rate and Rhythm Abdomen: Positive for: Normal Bowel Sounds Upper Extremity: Positive for: Normal Inspection, Edema Lower Extremity: Positive for: Edema Psychiatric: Positive for: Alert - Medications Active Medications: Active Medications Generic Name Dose Route Start Last Admin Trade Name Freq PRN Reason Stop Dose Admin Acetaminophen 650 mg 03/08/17 21:06 03/22/17 10:15 Tylenol 325mg Tab PO 650 mg Q6H PRN Administration Fever >100.4 F Albuterol/Ipratropium 3 ml 03/19/17 20:00 03/24/17 11:57 Duoneb 3 Mg/0.5 Mg (3 Ml) Ud INH 3 ml RQ4 BLAYNE Administration Benztropine Mesylate 1 mg 03/09/17 10:00 03/24/17 10:23 Cogentin PO 1 mg BID BLAYNE Administration Emtricitabine/Tenofovir 1 tab 03/09/17 10:00 03/24/17 10:25 Truvada 200 Mg-300 Mg PO 1 tab DAILY BLAYNE Administration Famotidine 20 mg 03/09/17 10:00 03/24/17 10:22 Pepcid PO 20 mg DAILY BLAYNE Administration Ferrous Sulfate 325 mg 03/09/17 10:00 03/24/17 10:22 Feosol PO 325 mg DAILY BLAYNE Administration Fluphenazine HCl 5 mg 03/09/17 10:00 03/24/17 10:25 Prolixin PO 5 mg BID BLAYNE Administration Hydroxyzine HCl 25 mg 03/08/17 21:06 03/21/17 17:51 Atarax PO 25 mg Q6 PRN Administration Itching / Pruritus Dopamine HCl/Dextrose 400 mg in 250 mls @ 16.925 mls/hr 03/22/17 10:14 Dopamine 400mg/250ml D5w IV .[id number] PRN TITRATE PER MD ORDER Protocol 5 MCG/KG/MIN Imipenem/Cilastatin Sodium 500 100 mls @ 100 mls/hr 03/24/17 10:00 03/24/17 10:24 mg/ Sodium Chloride IVPB 100 mls/hr Q6H BLAYNE Administration Potassium Phosphate 15 mmole/ 255 mls @ 63 mls/hr 03/24/17 10:00 03/24/17 10: 24 Sodium Chloride IV 03/24/17 14:02 63 mls/hr ONCE ONE Administration Insulin Aspart 0 unit 03/08/17 22:00 03/24/17 12:25 Novolog SC 2 unit ACHS BLAYNE Administration Protocol Methylprednisolone 40 mg 03/12/17 22:00 03/24/17 10:21 Solu-Medrol IVP 40 mg Q12 BLAYNE Administration Montelukast Sodium 10 mg 03/08/17 22:00 03/23/17 21:46 Singulair PO 10 mg HS BLAYNE Administration Multivitamins 1 tab 03/09/17 10:00 03/24/17 10:27 Hexavitamin PO 1 tab DAILY BLAYNE Administration Potassium Chloride 20 meq 03/09/17 10:00 03/24/17 10:22 K-Dur 20 Meq Er Tab PO 20 meq DAILY BLAYNE Administration Raltegravir 400 mg 03/09/17 10:00 03/24/17 10:22 Isentress PO 400 mg BID BLAYNE Administration Rosuvastatin Calcium 20 mg 03/08/17 22:00 03/23/17 21:46 Crestor PO 20 mg HS BLAYNE Administration Senna/Docusate Sodium 1 tab 03/08/17 21:06 03/19/17 21:40 Senokot S 50 Mg-8.6 Mg PO 1 tab HS PRN Administration Constipation Sertraline HCl 50 mg 03/09/17 10:00 03/24/17 10:22 Zoloft PO 50 mg DAILY BLAYNE Administration Trazodone HCl 50 mg 03/08/17 22:00 03/23/17 21:46 Desyrel PO 50 mg HS BLAYNE Administration Vitamin A 0.5 ea 03/24/17 09:22 Vitamin A & D Oint Ud Foilpak TOP Q4 PRN Dry mouth - Patient Studies Lab Studies: Microbiology Studies 03/22/17 16:30 Urine Culture - Final Urine,Catheterized Proteus Mirabilis 03/21/17 15:00 Blood Culture - Final Blood Proteus Mirabilis Gram Stain - Final 03/21/17 14:30 Blood Culture - Final Blood Gram Negative Kvng Gram Stain - Final 03/22/17 14:00 MRSA Culture (Admit) - Final Naris MRSA NOT DETECTED Lab Studies 03/24/17 03/24/17 03/24/17 Range/Units 11:56 08:32 06:48 WBC (4.8-10.8) K/uL RBC (4.40-5.90) Mil/uL Hgb (12.0-18.0) g/dL Hct (35.0-51.0) % MCV (80.0-94.0) fL MCH (27.0-31.0) pg MCHC (33.0-37.0) g/dL RDW (11.5-14.5) % Plt Count (130-400) K/uL MPV (7.2-11.7) fL Neut % (Auto) (50.0-75.0) % Lymph % (Auto) (20.0-40.0) % [place] % (Auto) (0.0-10.0) % Eos % (Auto) (0.0-4.0) % Baso % (Auto) (0.0-2.0) % Neut # (1.8-7.0) K/uL Lymph # (1.0-4.3) K/uL [place] # (0.0-0.8) K/uL Eos # (0.0-0.7) K/uL Baso # (0.0-0.2) K/uL Neutrophils % (Manual) (50-75) % Band Neutrophils % (0-2) % Lymphocytes % (Manual) (20-40) % Monocytes % (Manual) Metamyelocytes % (0-0) % Platelet Estimate (NORMAL) Polychromasia Hypochromasia (manual) Poikilocytosis (manual Anisocytosis (manual) Microcytosis (manual) Spherocytes Target Cells Tear Drop Cells Ovalocytes Solo Cells Schistocytes Sodium 142 (132-148) mmol/L Potassium 3.4 L (3.6-5.2) mmol/L Chloride 102 (98-107) mmol/L Carbon Dioxide 32 H (22-30) mmol/L Anion Gap 11 (10-20) BUN 40 H (9-20) mg/dL Creatinine 0.8 (0.8-1.5) MG/DL Est GFR ( Amer) > 60 Est GFR (Non-Af Amer) > 60 POC Glucose (mg/dL) 192 H 217 H (65-110) mg/dL Random Glucose 203 H (75-110) mg/dL Calcium 7.3 L (8.6-10.4) mg/dl Phosphorus 2.0 L (2.5-4.5) mg/dL Magnesium 1.7 (1.6-2.3) mg/dL Total Bilirubin 0.9 (0.2-1.3) mg/dL AST 78 H D (17-59) U/L ALT 128 H (21-72) U/L Alkaline Phosphatase 183 H D (38-126) U/L Total Protein 4.8 L (6.3-8.3) g/dL Albumin 2.1 L (3.5-5.0) g/dL Globulin 2.7 (2.2-3.9) gm/dL Albumin/Globulin Ratio 0.8 L (1.0-2.1) 03/24/17 03/23/17 03/23/17 Range/Units 06:48 21:39 16:32 WBC 10.3 (4.8-10.8) K/uL RBC 3.96 L (4.40-5.90) Mil/uL Hgb 8.6 L (12.0-18.0) g/dL Hct 28.7 L (35.0-51.0) % MCV 72.5 L (80.0-94.0) fL MCH 21.8 L (27.0-31.0) pg MCHC 30.1 L (33.0-37.0) g/dL RDW 31.4 H (11.5-14.5) % Plt Count 50 L D (130-400) K/uL MPV 8.6 (7.2-11.7) fL Neut % (Auto) 97.1 H (50.0-75.0) % Lymph % (Auto) 1.0 L (20.0-40.0) % [place] % (Auto) 1.5 (0.0-10.0) % Eos % (Auto) 0.3 (0.0-4.0) % Baso % (Auto) 0.1 (0.0-2.0) % Neut # 10.0 H (1.8-7.0) K/uL Lymph # 0.1 L (1.0-4.3) K/uL [place] # 0.2 (0.0-0.8) K/uL Eos # 0.0 (0.0-0.7) K/uL Baso # 0.0 (0.0-0.2) K/uL Neutrophils % (Manual) 80 H (50-75) % Band Neutrophils % 18 H* (0-2) % Lymphocytes % (Manual) 1 L (20-40) % Monocytes % (Manual) TEST NOT PERFORMED Metamyelocytes % 1 H (0-0) % Platelet Estimate Markedly decreased L (NORMAL) Polychromasia Slight Hypochromasia (manual) Moderate Poikilocytosis (manual Slight Anisocytosis (manual) Moderate Microcytosis (manual) Moderate Spherocytes Slight Target Cells Slight Tear Drop Cells Slight Ovalocytes Slight Solo Cells Slight Schistocytes Slight Sodium (132-148) mmol/L Potassium (3.6-5.2) mmol/L Chloride (98-107) mmol/L Carbon Dioxide (22-30) mmol/L Anion Gap (10-20) BUN (9-20) mg/dL Creatinine (0.8-1.5) MG/DL Est GFR ( Amer) Est GFR (Non-Af Amer) POC Glucose (mg/dL) 245 H 234 H (65-110) mg/dL Random Glucose (75-110) mg/dL Calcium (8.6-10.4) mg/dl Phosphorus (2.5-4.5) mg/dL Magnesium (1.6-2.3) mg/dL Total Bilirubin (0.2-1.3) mg/dL AST (17-59) U/L ALT (21-72) U/L Alkaline Phosphatase (38-126) U/L Total Protein (6.3-8.3) g/dL Albumin (3.5-5.0) g/dL Globulin (2.2-3.9) gm/dL Albumin/Globulin Ratio (1.0-2.1) Laboratory Results - last 24 hr 03/23/17 03/23/17 03/24/17 16:32 21:39 06:48 WBC 10.3 RBC 3.96 L Hgb 8.6 L Hct 28.7 L MCV 72.5 L MCH 21.8 L MCHC 30.1 L RDW 31.4 H Plt Count 50 L D MPV 8.6 Neut % (Auto) 97.1 H Lymph % (Auto) 1.0 L [place] % (Auto) 1.5 Eos % (Auto) 0.3 Baso % (Auto) 0.1 Neut # 10.0 H Lymph # 0.1 L [place] # 0.2 Eos # 0.0 Baso # 0.0 Neutrophils % (Manual) 80 H Band Neutrophils % 18 H* Lymphocytes % (Manual) 1 L Monocytes % (Manual) TEST NOT PERFORMED Metamyelocytes % 1 H Platelet Estimate Markedly decreased L Polychromasia Slight Hypochromasia (manual) Moderate Poikilocytosis (manual Slight Anisocytosis (manual) Moderate Microcytosis (manual) Moderate Spherocytes Slight Target Cells Slight Tear Drop Cells Slight Ovalocytes Slight [place] Cells Slight Schistocytes Slight Sodium Potassium Chloride Carbon Dioxide Anion Gap BUN Creatinine Est GFR ( Amer) Est GFR (Non-Af Amer) POC Glucose (mg/dL) 234 H 245 H Random Glucose Calcium Phosphorus Magnesium Total Bilirubin AST ALT Alkaline Phosphatase Total Protein Albumin Globulin Albumin/Globulin Ratio 03/24/17 03/24/17 03/24/17 06:48 08:32 11:56 WBC RBC Hgb Hct MCV MCH MCHC RDW Plt Count MPV Neut % (Auto) Lymph % (Auto) [place] % (Auto) Eos % (Auto) Baso % (Auto) Neut # Lymph # [place] # Eos # Baso # Neutrophils % (Manual) Band Neutrophils % Lymphocytes % (Manual) Monocytes % (Manual) Metamyelocytes % Platelet Estimate Polychromasia Hypochromasia (manual) Poikilocytosis (manual Anisocytosis (manual) Microcytosis (manual) Spherocytes Target Cells Tear Drop Cells Ovalocytes [place] Cells Schistocytes Sodium 142 Potassium 3.4 L Chloride 102 Carbon Dioxide 32 H Anion Gap 11 BUN 40 H Creatinine 0.8 Est GFR ( Amer) > 60 Est GFR (Non-Af Amer) > 60 POC Glucose (mg/dL) 217 H 192 H Random Glucose 203 H Calcium 7.3 L Phosphorus 2.0 L Magnesium 1.7 Total Bilirubin 0.9 AST 78 H D ALT 128 H Alkaline Phosphatase 183 H D Total Protein 4.8 L Albumin 2.1 L Globulin 2.7 Albumin/Globulin Ratio 0.8 L EKG/Cardiology Studies: Cardiology / EKG Studies 03/23/17 16:01 EKG [ELECTROCARDIOGRAM] Stat Comment: Mode Of Transportation: Reason For Exam: rapid A-Fib Isolation: Special Contact Fingerstick Blood Sugar Results: 118 Critical Care Progress Note - Nutrition Nutrition: Nutrition Category Date Time Status Liquid Diet [DIET] Diets 03/23/17 Lunch Active Assessment/Plan (1) Sepsis Current Visit: Yes Status: Acute Comment: His urine and blood culture positive for Proteus mirabilis resistant to cefepime IV antibiotics changed to Primaxin, ID evaluation Continue IV fluids (2) COPD (chronic obstructive pulmonary disease) Current Visit: Yes Status: Acute (3) Change in mental status Current Visit: Yes Status: Acute
--- NOTE | 2017-03-24 15:06 | CP.PCM.CON ---
History of Present Illness - History of Present Illness History of Present Illness: 66 y/o male, whose PMHx includes COPD, and lung cancer, is sent to the ED from [facility] for evaluation of diminished respiratory, and altered mental status for the last 2 days. referred for ID eval of urosepsis IV rx ordered for MDRO - Medical History PMH: Arthritis, Asthma, CHF, COPD, Diabetes, Emphysema, Fractures (left lower leg, wrist , hand), HIV, Hyperlipidemia Review of Systems - Constitutional Constitutional: As Per HPI, Anorexia, Fever, Malaise - EENT Eyes: absent: As Per HPI, Blind Spots, Blurred Vision, Change in Vision, Decreased Night Vision, Diplopia, Discharge, Dry Eye, Exophthalmos, Floaters, Irritation, Itchy Eyes, Loss of Peripheral Vision, Pain, Photophobia, Requires Corrective Lenses, Sees Flashes, Spots in Vision, Tunnel Vision, Other Visual Disturbances, Loss of Vision, Other Ears: absent: As Per HPI, Decreased Hearing, Ear Discharge, Ear Pain, Tinnitus, Abnormal Hearing, Disequilibrium, Dizziness, Other Nose/Mouth/Throat: absent: As Per HPI, Epistaxis, Nasal Congestion, Nasal Discharge, Nasal Obstruction, Nasal Trauma, Nose Pain, Post Nasal Drip, Sinus Pain, Sinus Pressure, Bleeding Gums, Change in Voice, Dental Pain, Dry Mouth, Dysphagia, Halitosis, Hoarsness, Lip Swelling, Mouth Lesions, Mouth Pain, Odynophagia, Sore Throat, Throat Swelling, Tongue Swelling, Facial Pain, Neck Pain, Neck Mass, Other - Cardiovascular Cardiovascular: absent: As Per HPI, Acrocyanosis, Chest Pain, Chest Pain at Rest , Chest Pain with Activity, Claudication, Diaphoresis, Dyspnea, Dyspnea on Exertion, Edema, Irregular Heart Rhythm, Pain Radiating to Arm/Neck/Jaw, Leg Edema, Leg Ulcers, Lightheadedness, Orthopnea, Palpitations, Paroxysmal Nocturnal Dyspnea, Pedal Edema, Radiating Pain, Rapid Heart Rate, Slow Heart Rate, Syncope, Other - Respiratory Respiratory: As Per HPI, Cough, Dyspnea - Gastrointestinal Gastrointestinal: As Per HPI. absent: Abdominal Pain, Belching, Bloating, Change in Bowel Habits, Change in Stool Character, Coffee Ground Emesis, Constipation, Cramping, Diarrhea, Dyspepsia, Dysphagia, Early Satiety, Excessive Flatus, Fecal Incontinence, Heartburn, Hematemesis, Hematochezia, Loose Stools, Melena, Nausea, Odynophagia, Temesmus, Vomiting, Other - Genitourinary Genitourinary: As Per HPI - Reproductive: Male Reproductive:Male: As Per HPI - Musculoskeletal Musculoskeletal: absent: As Per HPI, Abnormal Gait, Arthralgias, Atrophy, Back Pain, Deformity, Joint Swelling, Limited Range of Motion, Loss of Height, Muscle Cramps, Muscle Weakness, Myalgias, Neck Pain, Numbness, Radiating Pain into Limb, Stiffness, Tingling, Other - Integumentary Integumentary: absent: As Per HPI, Acne, Alopecia, Bleeding Lesions, Change in Hair, Change in Nails, Change in Pigmentation, Changing Lesions, Dry Skin, Erythema, Furuncle, Hirsutism, Lesions, New Lesions, Non-Healing Lesions, Photosensitivity, Pruritus, Rash, Skin Pain, Skin Ulcer, Sores, Striae, Swelling , Unusual Bruising, Wounds, Jaundice, Other - Neurological Neurological: absent: As Per HPI, Abnormal Gait, Abnormal Hearing, Abnormal Movements, Abnormal Speech, Behavioral Changes, Burning Sensations, Confusion, Convulsions, Disequilibrium, Dizziness, Numbness, Focal Weakness, Frequent Falls , Headaches, Lack of Coordination, Loss of Vision, Memory Loss, Paresthesias, Radicular Pain, Restless Legs, Sensory Deficit, Syncope, Tingling, Tremor, Vertigo, Weakness, Other Visual Disturbances, Other - Psychiatric Psychiatric: absent: As Per HPI, Abnormal Sleep Pattern, Anhedonia, Anxiety, Auditory Hallucinations, Behavioral Changes, Change in Appetite, Change in Libido, Confusion, Depression, Difficulty Concentrating, Hallucinations, Homicidal Ideation, Hopelessness, Irritability, Memory Loss, Mood Swings, Panic Attacks, Paranoia, Suicidal Ideation, Visual Hallucinations, Tactile Hallucinations, Other - Endocrine Endocrine: absent: As Per HPI, Change in Body Appearance, Change in Libido, Cold Intolorance, Deepening of Voice, Excessive Sweating, Fatigue, Flushing, Heat Intolorance, Increase in Ring/Shoe/Hat Size, Palpitations, Polydipsia, Polyphagia, Polyuria, Other - Hematologic/Lymphatic Hematologic: absent: As Per HPI, Easy Bleeding, Easy Bruising, Lymphadenopathy, Other Past Patient History - Past Medical History & Family History Past Medical History?: Yes - Past Social History Smoking Status: Former Smoker - CARDIAC Hx Congestive Heart Failure: Yes - PULMONARY Hx Asthma: Yes Hx Chronic Obstructive Pulmonary Disease (COPD): Yes Hx Emphysema: Yes - ENDOCRINE/METABOLIC Hx Endocrine Disorders: Yes Hx Diabetes Mellitus Type 2: Yes - HEMATOLOGICAL/ONCOLOGICAL Hx Human Immunodeficiency Virus (HIV): Yes - MUSCULOSKELETAL/RHEUMATOLOGICAL Hx Arthritis: Yes Hx Falls: Yes Hx Fractures: Yes (left lower leg, wrist , hand) - PSYCHIATRIC Hx Substance Use: No - SURGICAL HISTORY Hx Surgeries: Yes Hx Orthopedic Surgery: Yes (right shoulder torn rotator cuff 3 yr ago) - ANESTHESIA Hx Anesthesia: Yes Hx Anesthesia Reactions: No Hx Malignant Hyperthermia: No Meds Allergies/Adverse Reactions: Allergies Allergy/AdvReac Type Severity Reaction Status Date / Time clopidogrel [From Plavix] Allergy Verified 03/08/17 13:31 seafood Allergy Uncoded 03/08/17 13:31 - Medications Medications: Current Medications Acetaminophen (Tylenol 325mg Tab) 650 mg PO Q6H PRN PRN Reason: Fever >100.4 F Last Admin: 03/22/17 10:15 Dose: 650 mg Albuterol/Ipratropium (Duoneb 3 Mg/0.5 Mg (3 Ml) Ud) 3 ml INH RQ4 [facility] Last Admin: 03/24/17 11:57 Dose: 3 ml Benztropine Mesylate (Cogentin) 1 mg PO BID [facility] Last Admin: 03/24/17 10:23 Dose: 1 mg Emtricitabine/Tenofovir (Truvada 200 Mg-300 Mg) 1 tab PO DAILY [facility] Last Admin: 03/24/17 10:25 Dose: 1 tab Famotidine (Pepcid) 20 mg PO DAILY [facility] Last Admin: 03/24/17 10:22 Dose: 20 mg Ferrous Sulfate (Feosol) 325 mg PO DAILY [facility] Last Admin: 03/24/17 10:22 Dose: 325 mg Fluphenazine HCl (Prolixin) 5 mg PO BID [facility] Last Admin: 03/24/17 10:25 Dose: 5 mg Hydroxyzine HCl (Atarax) 25 mg PO Q6 PRN PRN Reason: Itching / Pruritus Last Admin: 03/21/17 17:51 Dose: 25 mg Imipenem/Cilastatin Sodium 500 (mg/ Sodium Chloride) 100 mls @ 100 mls/hr IVPB Q6H [facility] Last Admin: 03/24/17 10:24 Dose: 100 mls/hr Insulin Aspart (Novolog) 0 unit SC ACHS [facility] PRN Reason: Protocol Last Admin: 03/24/17 12:25 Dose: 2 unit Methylprednisolone (Solu-Medrol) 40 mg IVP Q12 [facility] Last Admin: 03/24/17 10:21 Dose: 40 mg Montelukast Sodium (Singulair) 10 mg PO HS [facility] Last Admin: 03/23/17 21:46 Dose: 10 mg Multivitamins (Hexavitamin) 1 tab PO DAILY [facility] Last Admin: 03/24/17 10:27 Dose: 1 tab Potassium Chloride (K-Dur 20 Meq Er Tab) 20 meq PO DAILY [facility] Last Admin: 03/24/17 10:22 Dose: 20 meq Raltegravir (Isentress) 400 mg PO BID [facility] Last Admin: 03/24/17 10:22 Dose: 400 mg Rosuvastatin Calcium (Crestor) 20 mg PO HS [facility] Last Admin: 03/23/17 21:46 Dose: 20 mg Senna/Docusate Sodium (Senokot S 50 Mg-8.6 Mg) 1 tab PO HS PRN PRN Reason: Constipation Last Admin: 03/19/17 21:40 Dose: 1 tab Sertraline HCl (Zoloft) 50 mg PO DAILY [facility] Last Admin: 03/24/17 10:22 Dose: 50 mg Trazodone HCl (Desyrel) 50 mg PO HS [facility] Last Admin: 03/23/17 21:46 Dose: 50 mg Vitamin A (Vitamin A & D Oint Ud Foilpak) 0.5 ea TOP Q4 PRN PRN Reason: Dry mouth Physical Exam - Constitutional Appears: Non-toxic, Cachectic, Chronically Ill - Head Exam Head Exam: ATRAUMATIC, NORMAL INSPECTION, NORMOCEPHALIC - Eye Exam Eye Exam: EOMI, PERRL. absent: Scleral icterus - ENT Exam ENT Exam: Mucous Membranes Dry, Normal External Ear Exam - Neck Exam Neck exam: Negative for: Lymphadenopathy, Thyromegaly - Respiratory Exam Respiratory Exam: Decreased Breath Sounds, Rhonchi - Cardiovascular Exam Cardiovascular Exam: REGULAR RHYTHM, +S1, +S2 - GI/Abdominal Exam GI & Abdominal Exam: Diminished Bowel Sounds, Distended, Soft. absent: Guarding , Rebound, Rigid, Tenderness - Rectal Exam Rectal Exam: Deferred - Exam Exam: NORMAL INSPECTION - Extremities Exam Extremities exam: Positive for: pedal edema, pedal pulses present. Negative for : calf tenderness, tenderness - Back Exam Back exam: absent: CVA tenderness (L), CVA tenderness (R), paraspinal tenderness - Neurological Exam Neurological exam: Alert, CN II-XII Intact, Oriented x3, Reflexes Normal - Psychiatric Exam Psychiatric exam: Depressed - Skin Skin Exam: Dry, Intact Results - Vital Signs Recent Vital Signs: Last Vital Signs Temp 97.8 F 03/24/17 12:00 Pulse 94 H 03/24/17 14:00 Resp 15 03/24/17 14:00 BP 133/63 03/24/17 13:32 Pulse Ox 97 03/24/17 14:00 - Labs Result Diagrams: 03/24/17 06:48 03/24/17 06:48 Labs: Laboratory Results - last 24 hr 03/23/17 03/23/17 03/24/17 16:32 21:39 06:48 WBC 10.3 RBC 3.96 L Hgb 8.6 L Hct 28.7 L MCV 72.5 L MCH 21.8 L MCHC 30.1 L RDW 31.4 H Plt Count 50 L D MPV 8.6 Neut % (Auto) 97.1 H Lymph % (Auto) 1.0 L [place] % (Auto) 1.5 Eos % (Auto) 0.3 Baso % (Auto) 0.1 Neut # 10.0 H Lymph # 0.1 L [place] # 0.2 Eos # 0.0 Baso # 0.0 Neutrophils % (Manual) 80 H Band Neutrophils % 18 H* Lymphocytes % (Manual) 1 L Monocytes % (Manual) TEST NOT PERFORMED Metamyelocytes % 1 H Platelet Estimate Markedly decreased L Polychromasia Slight Hypochromasia (manual) Moderate Poikilocytosis (manual Slight Anisocytosis (manual) Moderate Microcytosis (manual) Moderate Spherocytes Slight Target Cells Slight Tear Drop Cells Slight Ovalocytes Slight [place] Cells Slight Schistocytes Slight Sodium Potassium Chloride Carbon Dioxide Anion Gap BUN Creatinine Est GFR ( Amer) Est GFR (Non-Af Amer) POC Glucose (mg/dL) 234 H 245 H Random Glucose Calcium Phosphorus Magnesium Total Bilirubin AST ALT Alkaline Phosphatase Total Protein Albumin Globulin Albumin/Globulin Ratio 03/24/17 03/24/17 03/24/17 06:48 08:32 11:56 WBC RBC Hgb Hct MCV MCH MCHC RDW Plt Count MPV Neut % (Auto) Lymph % (Auto) [place] % (Auto) Eos % (Auto) Baso % (Auto) Neut # Lymph # [place] # Eos # Baso # Neutrophils % (Manual) Band Neutrophils % Lymphocytes % (Manual) Monocytes % (Manual) Metamyelocytes % Platelet Estimate Polychromasia Hypochromasia (manual) Poikilocytosis (manual Anisocytosis (manual) Microcytosis (manual) Spherocytes Target Cells Tear Drop Cells Ovalocytes Solo Cells Schistocytes Sodium 142 Potassium 3.4 L Chloride 102 Carbon Dioxide 32 H Anion Gap 11 BUN 40 H Creatinine 0.8 Est GFR ( Amer) > 60 Est GFR (Non-Af Amer) > 60 POC Glucose (mg/dL) 217 H 192 H Random Glucose 203 H Calcium 7.3 L Phosphorus 2.0 L Magnesium 1.7 Total Bilirubin 0.9 AST 78 H D ALT 128 H Alkaline Phosphatase 183 H D Total Protein 4.8 L Albumin 2.1 L Globulin 2.7 Albumin/Globulin Ratio 0.8 L Assessment & Plan (1) Anemia Status: Acute (2) CHF (congestive heart failure) Status: Acute (3) COPD (chronic obstructive pulmonary disease) Status: Acute (4) Change in mental status Status: Acute (5) Hypokalemia Status: Acute (6) Sepsis Status: Acute (7) Chest pain Status: Acute - Assessment and Plan (Free Text) Assessment: urosepsis with mdro consider ct abd / pelvis when stab;e consider eval will need min 14 days iv rx
[2017-03-25 06:35] LABS: BASO % 0.1 % (0.0-2.0); HEMATOCRIT 30.1 % (35.0-51.0); LYMPH # 0.1 K/uL (1.0-4.3); LYMPH % 1.3 % (20.0-40.0); MEAN CELL VOLUME 73.3 fL (80.0-94.0); MEAN CORPUSCULAR HEMOGLOBIN 21.1 pg (27.0-31.0); MEAN CORPUSCULAR HGB CONC 28.7 g/dL (33.0-37.0); MEAN PLATELET VOLUME 8.8 fL (7.2-11.7); MONO # 0.1 K/uL (0.0-0.8); PLATELET COUNT 35 K/uL (130-400); RED CELL DISTRIBUTION WIDTH 31.4 % (11.5-14.5); WHITE BLOOD COUNT 8.8 K/uL (4.8-10.8)
[2017-03-25 06:56] LABS: ALB/GLOB RATIO 0.8 (1.0-2.1); ALKALINE PHOSPHATASE 223 U/L (38-126); ALT/SGPT 127 U/L (21-72); AST/SGOT 74 U/L (17-59); BILIRUBIN,TOTAL 0.6 mg/dL (0.2-1.3); BLOOD UREA NITROGEN 34 mg/dL (9-20); CALCIUM 7.2 mg/dl (8.6-10.4); CARBON DIOXIDE 33 mmol/L (22-30); CHLORIDE 101 mmol/L (98-107); GFR AFRICAN-AMERICAN > 60; GLUCOSE,RANDOM 183 mg/dL (75-110); MAGNESIUM 1.7 mg/dL (1.6-2.3); PHOSPHOROUS 2.4 mg/dL (2.5-4.5); POTASSIUM 3.4 mmol/L (3.6-5.2); SODIUM 140 mmol/L (132-148); TOTAL PROTEIN 4.7 g/dL (6.3-8.3)
[2017-03-25] MEDS: (Novolog) Insulin Aspart, Recombinant 100 u/ml 10 ml vial SC SCH ×4 (07:40→21:30)
[2017-03-25 08:39] LABS: NEUTROPHIL 79 % (50-75); TOTAL CELLS COUNTED 100
[2017-03-25] MEDS: MethylPREDNISolone 40 mg Vial IVP SCH ×2 (09:06→21:20)
[2017-03-25] MEDS: Potassium Chloride 20 mEq ER Tab PO SCH (09:07)
[2017-03-25] MEDS: Emtricitabine-Tenofovir 200 mg-300 mg Tab PO SCH (09:08)
[2017-03-25] MEDS: Multiple Vitamins Tab PO SCH (09:10)
--- NOTE | 2017-03-25 10:28 | PN ---
DATE: 03/23/2017 The patient gets supportive care in ICU. Michael Stanley MD
--- NOTE | 2017-03-25 12:06 | CP.PCM.PN ---
Subjective - Date & Time of Evaluation Date of Evaluation: 03/25/17 Time of Evaluation: 08:00 - Subjective Subjective: 66 y/o male, whose PMHx includes COPD, and lung cancer, is sent to the ED from detention for evaluation of diminished respiratory, and altered mental status for the last 2 days. referred for ID eval of urosepsis IV rx ordered for MDRO Objective - Vital Signs/Intake and Output Vital Signs (last 24 hours): Temp Pulse Resp BP Pulse Ox 97.8 F 98 H 18 146/50 L 96 03/25/17 08:00 03/25/17 11:00 03/25/17 11:00 03/25/17 10:32 03/25/17 11:00 Intake and Output: 03/25/17 03/25/17 06:59 18:59 Intake Total 880 720 Output Total 1085 260 Balance -205 460 - Medications Medications: Current Medications Acetaminophen (Tylenol 325mg Tab) 650 mg PO Q6H PRN PRN Reason: Fever >100.4 F Last Admin: 03/22/17 10:15 Dose: 650 mg Benztropine Mesylate (Cogentin) 1 mg PO BID [facility] Last Admin: 03/25/17 09:08 Dose: 1 mg Emtricitabine/Tenofovir (Truvada 200 Mg-300 Mg) 1 tab PO DAILY [facility] Last Admin: 03/25/17 09:08 Dose: 1 tab Famotidine (Pepcid) 20 mg PO DAILY [facility] Last Admin: 03/25/17 09:07 Dose: 20 mg Ferrous Sulfate (Feosol) 325 mg PO DAILY [facility] Last Admin: 03/25/17 09:07 Dose: 325 mg Fluphenazine HCl (Prolixin) 5 mg PO BID [facility] Last Admin: 03/25/17 09:08 Dose: 5 mg Hydroxyzine HCl (Atarax) 25 mg PO Q6 PRN PRN Reason: Itching / Pruritus Last Admin: 03/21/17 17:51 Dose: 25 mg Imipenem/Cilastatin Sodium 500 (mg/ Sodium Chloride) 100 mls @ 100 mls/hr IVPB Q6H [facility] Last Admin: 03/25/17 09:06 Dose: 100 mls/hr Insulin Aspart (Novolog) 0 unit SC ACHS [facility] PRN Reason: Protocol Last Admin: 03/25/17 07:40 Dose: 3 unit Methylprednisolone (Solu-Medrol) 40 mg IVP Q12 [facility] Last Admin: 03/25/17 09:06 Dose: 40 mg Montelukast Sodium (Singulair) 10 mg PO HS [facility] Last Admin: 03/24/17 21:26 Dose: 10 mg Multivitamins (Hexavitamin) 1 tab PO DAILY [facility] Last Admin: 03/25/17 09:10 Dose: 1 tab Potassium Chloride (K-Dur 20 Meq Er Tab) 20 meq PO DAILY [facility] Last Admin: 03/25/17 09:07 Dose: 20 meq Raltegravir (Isentress) 400 mg PO BID [facility] Last Admin: 03/25/17 09:08 Dose: 400 mg Rosuvastatin Calcium (Crestor) 20 mg PO HS [facility] Last Admin: 03/24/17 21:26 Dose: 20 mg Senna/Docusate Sodium (Senokot S 50 Mg-8.6 Mg) 1 tab PO HS PRN PRN Reason: Constipation Last Admin: 03/19/17 21:40 Dose: 1 tab Sertraline HCl (Zoloft) 50 mg PO DAILY [facility] Last Admin: 03/25/17 09:07 Dose: 50 mg Trazodone HCl (Desyrel) 50 mg PO HS [facility] Last Admin: 03/24/17 22:40 Dose: 50 mg Vitamin A (Vitamin A & D Oint Ud Foilpak) 0.5 ea TOP Q4 PRN PRN Reason: Dry mouth - Labs Labs: 03/25/17 06:31 03/25/17 06:29 - Constitutional Appears: Non-toxic, Chronically Ill - Head Exam Head Exam: NORMOCEPHALIC - ENT Exam ENT Exam: Mucous Membranes Dry - Neck Exam Neck Exam: absent: Lymphadenopathy - Respiratory Exam Respiratory Exam: Decreased Breath Sounds - Cardiovascular Exam Cardiovascular Exam: REGULAR RHYTHM - GI/Abdominal Exam GI & Abdominal Exam: Distended, Soft Assessment and Plan (1) Anemia Status: Acute (2) CHF (congestive heart failure) Status: Acute (3) COPD (chronic obstructive pulmonary disease) Status: Acute (4) Change in mental status Status: Acute (5) Hypokalemia Status: Acute (6) Sepsis Status: Acute (7) Chest pain Status: Acute
--- NOTE | 2017-03-26 11:30 | PCM.PSYCH ---
Initial Psychiatric Evaluation - Initial Psychiatric Evaluation Type of Admission: Voluntary Legal Status: Capacity History of Present Illness and Precipitating Events: Patient is a 66 year old male with PMH of COPD, emphysema, asthma, lung cancer, CHF, DM, HIV, hyperlipidemia, admitted from the [facility] for hypotension and hypoxia. Patient is lethargic. Patient knows his name and knows he is in a hospital. Patient denies auditory and visual hallucinations. Patient is very lethargic and only answers with one word. Full history and ROS is unobtainable. From Previous Admission: Past PsycHx: was told he was depressed in past, from last psych evaluation 02/28: Cocaine use disorder severe, Cannabis use disorder severe, Major depressive disorder with psychosis, Schizoaffective disorder depressive type Substance Use: Cannabis, Crack (route: snort), Heroin (route snort) Rehab 2x In [facility] denies; states I dont need help, there are people who need help and can t get it. Alcohol: 2-3 quarts of Hilario Greene daily (quit drinking 10 years ago) Tobacco: 6 ppd (quit) Current Medications: Active Medications Generic Name Dose Route Start Last Admin Trade Name Freq PRN Reason Stop Dose Admin Acetaminophen 650 mg 03/08/17 21:06 03/22/17 10:15 Tylenol 325mg Tab PO 650 mg Q6H PRN Administration Fever >100.4 F Benztropine Mesylate 1 mg 03/09/17 10:00 03/25/17 18:04 Cogentin PO 1 mg BID [facility] Administration Emtricitabine/Tenofovir 1 tab 03/09/17 10:00 03/25/17 09:08 Truvada 200 Mg-300 Mg PO 1 tab DAILY [facility] Administration Famotidine 20 mg 03/09/17 10:00 03/25/17 09:07 Pepcid PO 20 mg DAILY [facility] Administration Ferrous Sulfate 325 mg 03/09/17 10:00 03/25/17 09:07 Feosol PO 325 mg DAILY [facility] Administration Fluphenazine HCl 5 mg 03/09/17 10:00 03/25/17 18:04 Prolixin PO 5 mg BID [facility] Administration Hydroxyzine HCl 25 mg 03/08/17 21:06 03/21/17 17:51 Atarax PO 25 mg Q6 PRN Administration Itching / Pruritus Imipenem/Cilastatin Sodium 500 100 mls @ 100 mls/hr 08/20/17 10:00 03/26/17 05:30 mg/ Sodium Chloride IVPB 100 mls/hr Q6H [facility] Administration Insulin Aspart 0 unit 03/08/17 22:00 03/25/17 21:30 Novolog SC Not Given ACHS [facility] Protocol Methylprednisolone 40 mg 03/12/17 22:00 03/25/17 21:20 Solu-Medrol IVP 40 mg Q12 [facility] Administration Montelukast Sodium 10 mg 03/08/17 22:00 03/25/17 21:20 Singulair PO 10 mg HS [facility] Administration Multivitamins 1 tab 03/09/17 10:00 03/25/17 09:10 Hexavitamin PO 1 tab DAILY [facility] Administration Potassium Chloride 20 meq 03/09/17 10:00 03/25/17 09:07 K-Dur 20 Meq Er Tab PO 20 meq DAILY [facility] Administration Raltegravir 400 mg 03/09/17 10:00 03/25/17 18:04 Isentress PO 400 mg BID [facility] Administration Rosuvastatin Calcium 20 mg 03/08/17 22:00 03/25/17 21:20 Crestor PO 20 mg HS [facility] Administration Senna/Docusate Sodium 1 tab 03/08/17 21:06 03/19/17 21:40 Senokot S 50 Mg-8.6 Mg PO 1 tab HS PRN Administration Constipation Sertraline HCl 50 mg 03/09/17 10:00 03/25/17 09:07 Zoloft PO 50 mg DAILY [facility] Administration Trazodone HCl 50 mg 03/08/17 22:00 03/25/17 21:26 Desyrel PO 50 mg HS [facility] Administration Vitamin A 0.5 ea 03/24/17 09:22 Vitamin A & D Oint Ud Foilpak TOP Q4 PRN Dry mouth Past Psychiatric History - Past Psychiatric History Previous Treatment History: [facility]patient [facility]: [facility] History of Abuse: cannabis, cocaine alcohol and tobacco in past Pertinent Medical Hx (Current Medical&Sleep Prob, Allergies): Allergies Allergy/AdvReac Type Severity Reaction Status Date / Time clopidogrel [From Plavix] Allergy Verified 03/08/17 13:31 seafood Allergy Uncoded 03/08/17 13:31 Acetaminophen [Tylenol 325mg tab] 650 mg PO Q6H PRN 02/25/17 Albuterol/Ipratropium [Duoneb 3 mg/0.5 mg (3 ml) UD] 3 ml IH DAILY 02/25/17 Emtricitabine/Tenofovir (Tdf) [Truvada 200 mg-300 mg Tablet] 1 each PO DAILY Famotidine 20 mg PO DAILY 02/25/17 Furosemide [Lasix] 20 mg PO DAILY 02/25/17 Metoprolol Tartrate 25 mg PO BID 02/25/17 Montelukast Sodium [Singulair] 10 mg PO HS 02/25/17 Multivitamin [Multi-Day Vitamins] 1 each PO DAILY 02/25/17 Raltegravir Potassium [Isentress] 400 mg PO BID 02/25/17 Rosuvastatin Calcium 20 mg PO HS 02/25/17 Sennosides/Docusate Sodium [Senna-S Tablet] 1 each PO HS PRN 02/25/17 Benztropine [Cogentin] 1 mg PO BID tab 03/02/17 Ferrous Sulfate [Feosol] 325 mg PO DAILY tab 03/02/17 Sertraline [Zoloft] 50 mg PO DAILY tab 03/02/17 fluPHENAZine [Prolixin] 5 mg PO BID tab 03/02/17 traZODone [Desyrel] 50 mg PO HS tab 03/02/17 Bacitracin OINT 03/08/17 Insulin Aspart, Recombinant [Novolog] 03/08/17 Moxifloxacin [Avelox] 1 tab PO DAILY 03/08/17 Potassium Chloride [K-Dur 20 mEq ER Tab] 20 meq PO DAILY 03/08/17 hydrOXYzine HCl [Atarax] 25 mg PO Q6 PRN 03/08/17 predniSONE [predniSONE Tab] 2 tab PO DAILY 03/08/17 Review of Systems - Psychiatric Psychiatric: Confusion. absent: Auditory Hallucinations, Visual Hallucinations Mental Status Examination - Personal Presentation Personal Presentation: Looks stated age - Affect Affect: Constricted - Motor Activity Motor Activity: Calm - Reliability in Providing Information Reliability in Providing Information: Poor, due to cognitve impairment - Speech Speech: Relevant, Incoherent Additional comments: patient speaks in garbled, soft voice - Mood Mood: Depressed - Formal Thought Process Formal Thought Process: No Impairment - Obsessions/Compulsions Obsessions: No Compulsions: No - Cognitive Functions Orientation: Person, Place Sensorium: Lethargic Estimate of Intelligence: Below average - Risk Risk: Diminished functioning - Strength & Assets Inventory Strength & Assets Inventory: Cooperative DSM 5 DX - DSM 5 DSM 5 Diagnosis: Current h/o Schizoaffective d/o Past h/o cocaine use disorder and cannabis use disorder - Recommended/Plan of Treatment Treatment Recommendations and Plan of Treatment: Schizoaffective d/o Zoloft 50 mg PO daily Prolixin 5 mg PO BID Trazodone 50 mg PO HS Atarax 25mg PRN Cogentin 1 mg PO BID Prognosis: fair with medications - Smoking Cessation Smoking Cessation Initiated: No
[2017-03-26] MEDS: MethylPREDNISolone 40 mg Vial IVP SCH ×2 (12:30→21:36)
[2017-03-26] MEDS: (Novolog) Insulin Aspart, Recombinant 100 u/ml 10 ml vial SC SCH ×4 (13:57→21:45)
[2017-03-26] MEDS: Multiple Vitamins Tab PO SCH (13:59)
[2017-03-26] MEDS: Potassium Chloride 20 mEq ER Tab PO SCH (14:00)
[2017-03-26] MEDS: Emtricitabine-Tenofovir 200 mg-300 mg Tab PO SCH (14:02)
--- NOTE | 2017-03-26 17:45 | CARD ---
APPROVED REPORT EKG Measurement Heart [id number] <Conclusion> Atrial fibrillation with rapid ventricular response Nonspecific ST and T wave abnormality Abnormal ECG
[2017-03-26] MEDS: Docusate-Senna 50 mg-8.6 mg Tab PO PRN (21:36)
[2017-03-27] MEDS: (Novolog) Insulin Aspart, Recombinant 100 u/ml 10 ml vial SC SCH ×4 (08:49→21:49)
[2017-03-27] MEDS: Emtricitabine-Tenofovir 200 mg-300 mg Tab PO SCH (09:21)
[2017-03-27] MEDS: MethylPREDNISolone 40 mg Vial IVP SCH ×2 (09:34→21:48)
[2017-03-27] MEDS: Potassium Chloride 20 mEq ER Tab PO SCH ×2 (09:34→10:00)
[2017-03-27] MEDS: Multiple Vitamins Tab PO SCH (09:34)
--- NOTE | 2017-03-27 17:34 | CP.PCM.PN ---
Subjective - Date & Time of Evaluation Date of Evaluation: 03/27/17 Time of Evaluation: 08:00 - Subjective Subjective: iv rc in progress meds renewed Objective - Vital Signs/Intake and Output Vital Signs (last 24 hours): Temp Pulse Resp BP Pulse Ox 98.2 F 81 13 115/50 L 97 03/27/17 16:00 03/27/17 16:32 03/27/17 16:32 03/27/17 16:32 03/27/17 12:00 Intake and Output: 03/27/17 03/27/17 06:59 18:59 Intake Total 450 Output Total 1200 400 Balance -750 -400 - Medications Medications: Current Medications Acetaminophen (Tylenol 325mg Tab) 650 mg PO Q6H PRN PRN Reason: Fever >100.4 F Last Admin: 03/22/17 10:15 Dose: 650 mg Benztropine Mesylate (Cogentin) 1 mg PO BID [facility] Last Admin: 03/27/17 09:21 Dose: 1 mg Emtricitabine/Tenofovir (Truvada 200 Mg-300 Mg) 1 tab PO DAILY [facility] Last Admin: 03/27/17 09:21 Dose: 1 tab Famotidine (Pepcid) 20 mg PO DAILY [facility] Last Admin: 03/27/17 09:34 Dose: 20 mg Ferrous Sulfate (Feosol) 325 mg PO DAILY [facility] Last Admin: 03/27/17 09:34 Dose: 325 mg Fluphenazine HCl (Prolixin) 5 mg PO BID [facility] Last Admin: 03/27/17 09:23 Dose: 5 mg Hydroxyzine HCl (Atarax) 25 mg PO Q6 PRN PRN Reason: Itching / Pruritus Last Admin: 03/21/17 17:51 Dose: 25 mg Imipenem/Cilastatin Sodium 500 (mg/ Sodium Chloride) 100 mls @ 100 mls/hr IVPB Q6H [facility] Last Admin: 03/27/17 15:40 Dose: 100 mls/hr Insulin Aspart (Novolog) 0 unit SC ACHS [facility] PRN Reason: Protocol Last Admin: 03/27/17 13:02 Dose: 2 unit Methylprednisolone (Solu-Medrol) 40 mg IVP Q12 [facility] Last Admin: 03/27/17 09:34 Dose: 40 mg Montelukast Sodium (Singulair) 10 mg PO HS [facility] Last Admin: 03/26/17 21:36 Dose: 10 mg Multivitamins (Hexavitamin) 1 tab PO DAILY [facility] Last Admin: 03/27/17 09:34 Dose: 1 tab Potassium Chloride (K-Dur 20 Meq Er Tab) 20 meq PO DAILY [facility] Last Admin: 03/27/17 10:00 Dose: Not Given Raltegravir (Isentress) 400 mg PO BID [facility] Last Admin: 03/27/17 09:23 Dose: 400 mg Rosuvastatin Calcium (Crestor) 20 mg PO HS [facility] Last Admin: 03/26/17 21:36 Dose: 20 mg Senna/Docusate Sodium (Senokot S 50 Mg-8.6 Mg) 1 tab PO HS PRN PRN Reason: Constipation Last Admin: 03/26/17 21:36 Dose: 1 tab Sertraline HCl (Zoloft) 50 mg PO DAILY [facility] Last Admin: 03/27/17 09:34 Dose: 50 mg Trazodone HCl (Desyrel) 50 mg PO HS [facility] Last Admin: 03/26/17 21:36 Dose: 50 mg Vitamin A (Vitamin A & D Oint Ud Foilpak) 0.5 ea TOP Q4 PRN PRN Reason: Dry mouth - Labs Labs: 03/25/17 06:31 03/25/17 06:29 - Constitutional Appears: Non-toxic, Cachectic, Chronically Ill - Head Exam Head Exam: NORMOCEPHALIC - Eye Exam Eye Exam: PERRL - ENT Exam ENT Exam: Mucous Membranes Dry, Normal External Ear Exam - Neck Exam Neck Exam: absent: Lymphadenopathy - Respiratory Exam Respiratory Exam: Decreased Breath Sounds, Rhonchi - Cardiovascular Exam Cardiovascular Exam: REGULAR RHYTHM - GI/Abdominal Exam GI & Abdominal Exam: Distended, Soft. absent: Tenderness - Rectal Exam Rectal Exam: Deferred - Exam Exam: NORMAL INSPECTION - Back Exam Back Exam: absent: CVA tenderness (L), CVA tenderness (R) - Psychiatric Exam Psychiatric exam: Normal Mood - Skin Skin Exam: Dry Assessment and Plan (1) Anemia Status: Acute (2) CHF (congestive heart failure) Status: Acute (3) COPD (chronic obstructive pulmonary disease) Status: Acute (4) Change in mental status Status: Acute (5) Hypokalemia Status: Acute (6) Sepsis Status: Acute (7) Chest pain Status: Acute
[2017-03-28] MEDS: (Novolog) Insulin Aspart, Recombinant 100 u/ml 10 ml vial SC SCH ×4 (07:45→21:47)
[2017-03-28] MEDS: Potassium Chloride 20 mEq ER Tab PO SCH (10:04)
[2017-03-28] MEDS: Docusate-Senna 50 mg-8.6 mg Tab PO PRN (10:05)
[2017-03-28] MEDS: Multiple Vitamins Tab PO SCH (10:05)
[2017-03-28] MEDS: Emtricitabine-Tenofovir 200 mg-300 mg Tab PO SCH (10:10)
[2017-03-29 07:54] LABS: BASO % 0.3 % (0.0-2.0); EOS % 0.8 % (0.0-4.0); HEMATOCRIT 28.9 % (35.0-51.0); LYMPH # 0.3 K/uL (1.0-4.3); LYMPH % 5.4 % (20.0-40.0); MEAN CELL VOLUME 71.8 fL (80.0-94.0); MEAN CORPUSCULAR HGB CONC 29.2 g/dL (33.0-37.0); MEAN PLATELET VOLUME 8.4 fL (7.2-11.7); MONO # 0.1 K/uL (0.0-0.8); MONO % 1.2 % (0.0-10.0); RED CELL DISTRIBUTION WIDTH 30.2 % (11.5-14.5); WHITE BLOOD COUNT 5.6 K/uL (4.8-10.8)
[2017-03-29 08:05] LABS: CHLORIDE 100 mmol/L (98-107)
[2017-03-29 08:06] LABS: PLATELET COUNT 22 K/uL (130-400); SODIUM 139 mmol/L (132-148)
[2017-03-29 08:07] LABS: POTASSIUM 3.5 mmol/L (3.6-5.2)
[2017-03-29 08:08] LABS: BILIRUBIN,TOTAL 0.6 mg/dL (0.2-1.3); GFR AFRICAN-AMERICAN > 60
[2017-03-29 08:09] LABS: ALB/GLOB RATIO 0.7 (1.0-2.1); ALKALINE PHOSPHATASE 222 U/L (38-126); ALT/SGPT 102 U/L (21-72); AST/SGOT 78 U/L (17-59); BLOOD UREA NITROGEN 28 mg/dL (9-20); CALCIUM 6.5 mg/dl (8.6-10.4); CARBON DIOXIDE 36 mmol/L (22-30); GLUCOSE,RANDOM 102 mg/dL (75-110); TOTAL PROTEIN 4.3 g/dL (6.3-8.3)
[2017-03-29] MEDS: (Novolog) Insulin Aspart, Recombinant 100 u/ml 10 ml vial SC SCH ×4 (08:10→22:03)
[2017-03-29 08:30] LABS: NEUTROPHIL 92 % (50-75); TOTAL CELLS COUNTED 100
[2017-03-29] MEDS ORDERED: Potassium Chloride 20 mEq ER Tab PO ONE (09:34)
[2017-03-29] MEDS: Multiple Vitamins Tab PO SCH (09:50)
[2017-03-29] MEDS: Potassium Chloride 20 mEq ER Tab PO SCH (09:50)
[2017-03-29] MEDS: Emtricitabine-Tenofovir 200 mg-300 mg Tab PO SCH (09:50)
--- NOTE | 2017-03-29 11:55 | CP.PCM.PN ---
<Juancarlos Araujo - Last Filed: 03/29/17 14:11> Subjective - Date & Time of Evaluation Date of Evaluation: 03/29/17 Time of Evaluation: 07:00 - Subjective Subjective: Resident Progress Note for Dr. Ham Patient seen and examined at bedside. No acute events reported overnight. Patient is lethargic but is able to some simple questions but not all. Patient complains of mild shortness of breath. Patient is compliant with medication and diet per nursing staff. Limited ROS due to patient's lethargy. Objective - Vital Signs/Intake and Output Vital Signs (last 24 hours): Temp Pulse Resp BP Pulse Ox 98.5 F 81 20 106/58 L 98 03/29/17 08:03 03/29/17 08:03 03/29/17 08:03 03/29/17 08:03 03/29/17 08:03 Intake and Output: 03/29/17 03/29/17 06:59 18:59 Intake Total 590 Output Total 1001 Balance -411 - Medications Medications: Current Medications Acetaminophen (Tylenol 325mg Tab) 650 mg PO Q6H PRN PRN Reason: Fever >100.4 F Last Admin: 03/22/17 10:15 Dose: 650 mg Benztropine Mesylate (Cogentin) 1 mg PO BID [facility] Last Admin: 03/29/17 09:51 Dose: 1 mg Emtricitabine/Tenofovir (Truvada 200 Mg-300 Mg) 1 tab PO DAILY [facility] Last Admin: 03/29/17 09:50 Dose: 1 tab Famotidine (Pepcid) 20 mg PO DAILY [facility] Last Admin: 03/29/17 09:50 Dose: 20 mg Ferrous Sulfate (Feosol) 325 mg PO DAILY [facility] Last Admin: 03/29/17 09:49 Dose: 325 mg Fluphenazine HCl (Prolixin) 5 mg PO BID [facility] Last Admin: 03/29/17 09:51 Dose: 5 mg Imipenem/Cilastatin Sodium 500 (mg/ Sodium Chloride) 100 mls @ 100 mls/hr IVPB Q6H [facility] Last Admin: 03/29/17 09:52 Dose: 100 mls/hr Insulin Aspart (Novolog) 0 unit SC ACHS [facility] PRN Reason: Protocol Last Admin: 03/29/17 08:10 Dose: Not Given Montelukast Sodium (Singulair) 10 mg PO HS [facility] Last Admin: 03/28/17 21:10 Dose: 10 mg Multivitamins (Hexavitamin) 1 tab PO DAILY [facility] Last Admin: 03/29/17 09:50 Dose: 1 tab Potassium Chloride (K-Dur 20 Meq Er Tab) 20 meq PO DAILY [facility] Last Admin: 03/29/17 09:50 Dose: 20 meq Raltegravir (Isentress) 400 mg PO BID [facility] Last Admin: 03/29/17 09:50 Dose: 400 mg Rosuvastatin Calcium (Crestor) 20 mg PO HS [facility] Last Admin: 03/28/17 21:10 Dose: 20 mg Senna/Docusate Sodium (Senokot S 50 Mg-8.6 Mg) 1 tab PO HS PRN PRN Reason: Constipation Last Admin: 03/28/17 10:05 Dose: 1 tab Sertraline HCl (Zoloft) 50 mg PO DAILY [facility] Last Admin: 03/29/17 09:50 Dose: 50 mg Vitamin A (Vitamin A & D Oint Ud Foilpak) 0.5 ea TOP Q4 PRN PRN Reason: Dry mouth - Labs Labs: 03/29/17 07:50 03/29/17 07:50 - Constitutional Appears: Non-toxic, No Acute Distress, Chronically Ill - Head Exam Head Exam: ATRAUMATIC - Neck Exam Neck Exam: absent: Lymphadenopathy - Respiratory Exam Respiratory Exam: Decreased Breath Sounds, Rhonchi - Cardiovascular Exam Cardiovascular Exam: REGULAR RHYTHM - GI/Abdominal Exam GI & Abdominal Exam: Soft Additional comments: obese abdomen - Exam Exam: Scrotal Swelling Additional comments: Silverman inserted with dark carmen urine in the collection tank - Extremities Exam Additional comments: right upper extremity swelling - Neurological Exam Additional comments: lethargic - Psychiatric Exam Psychiatric exam: Normal Mood - Skin Skin Exam: Dry, Warm Assessment and Plan - Assessment and Plan (Free Text) Assessment: Dyspnea- Secondary to COPD v. CHF v. Lung CA v. Pneumonia 03/29: Patient degraded from ICU to telemetry overnight. Patient still shortness of breath. Repeat CXR ordered 03/21: [employer]INTER [employer] called on patient, hypoxic and hypotensive. ABG showed pH 7.54, PO2 67 PCO2 41. WBC 8.0, Band neutrophils 46%. No acute infiltrate. Possible small r pleural effusion. Patient transferred to ICU for further management 03/20: ABG showed PCO2 69, PO2 46, HCO3 40, pH 7.39, DC planning for tomorrow 03/19: Pt to continue on BIPAP at night; and requires BIPAP at night with discharge Holding off on trach- not a candidate considering comorbidities Tolerating oral intake ABG on 03/13: PCO2/61, PO2/64, HCO3/43.7, pH/7.52- improved from previous ABG CXR 02/25/17: small right greater than left pleural effusions, right sided cv cathether, median sternotomy wires,; patchy airspace opacity at the right lung base; cardiomegaly CXR 03/13- see full report; R sided consolidation and congestion BNP 29401 Solumedrol 40mg IVP Q12 [facility] tapering Continue duonebs q4hrs Lasix 20mg PO daily KCL 20meq PO HS Tylenol prn Sepsis secondary to UTI Patient was started on Primaxin on 03/24, will require at least 14 days per ID Currently afebrile, no leukocytosis Silverman was inserted on 03/22, will need to be replace within 10 days Urine culture from 03/22- Proteus Mirabilis Blood culture from 03/21- Proteus Mirabilis Repeat blood culture ordered Thrombocytopenia Likely secondary to sepsis Hold off Lovenox Continue to monitor Hypokalemia Stable Monitor daily, supplement as needed K today- 3.5 KCL 20meq PO daily, extra 20meq PO given Microcytic Anemia- chronic disease v. iron deficiency Hgb is stableFeosol 325mg PO daily Continue to monitor Obstructive Sleep Apnea BiPAP ordered for night time use- patient should go to [facility] with BIPAP at night History of COPD Well controlled with O2 nasal cannula and BIPAP Singulair 10mg PO daily History of HIV Truvada 1 tab PO daily (home med) Isentress 400mg PO BID (home med) HTN Lopressor 25mg PO BID Previous Echo done on 02/26/17- EF 62% (see full report) HLD Crestor 20mg PO HS Psychiatric history- questionable Schizophrenia Fluphenazine 5mg PO BID Benztropine Mesylate 1mg PO BID Zoloft 50mg PO daily Discontinued Atarax and Trazodone due to lethargy Constipation Senna/Docusate Sodium 1 tab PO HS PRN Constipaton Transient hyperglycemia likely secondary to steroid administration ISS Continue to monitor No documented history of DM Accuchecks A1c 6.2 Prophylaxis Pepcid 20mg PO daily SCDs Upon discharge patient will need BiPAP at night. Case discussed with attending Dr. Ham <Woodrow Ham - Last Filed: 03/29/17 14:55> Objective - Vital Signs/Intake and Output Vital Signs (last 24 hours): Temp Pulse Resp BP Pulse Ox 98.5 F 81 20 106/58 L 98 03/29/17 08:03 03/29/17 08:03 03/29/17 08:03 03/29/17 08:03 03/29/17 08:03 Intake and Output: 03/29/17 03/29/17 06:59 18:59 Intake Total 590 Output Total 1001 650 Balance -411 -650 - Medications Medications: Current Medications Acetaminophen (Tylenol 325mg Tab) 650 mg PO Q6H PRN PRN Reason: Fever >100.4 F Last Admin: 03/22/17 10:15 Dose: 650 mg Benztropine Mesylate (Cogentin) 1 mg PO BID [facility] Last Admin: 03/29/17 09:51 Dose: 1 mg Emtricitabine/Tenofovir (Truvada 200 Mg-300 Mg) 1 tab PO DAILY [facility] Last Admin: 03/29/17 09:50 Dose: 1 tab Famotidine (Pepcid) 20 mg PO DAILY [facility] Last Admin: 03/29/17 09:50 Dose: 20 mg Ferrous Sulfate (Feosol) 325 mg PO DAILY [facility] Last Admin: 03/29/17 09:49 Dose: 325 mg Fluphenazine HCl (Prolixin) 5 mg PO BID [facility] Last Admin: 03/29/17 09:51 Dose: 5 mg Imipenem/Cilastatin Sodium 500 (mg/ Sodium Chloride) 100 mls @ 100 mls/hr IVPB Q6H [facility] Last Admin: 03/29/17 09:52 Dose: 100 mls/hr Insulin Aspart (Novolog) 0 unit SC ACHS [facility] PRN Reason: Protocol Last Admin: 03/29/17 12:24 Dose: Not Given Montelukast Sodium (Singulair) 10 mg PO HS [facility] Last Admin: 03/28/17 21:10 Dose: 10 mg Multivitamins (Hexavitamin) 1 tab PO DAILY [facility] Last Admin: 03/29/17 09:50 Dose: 1 tab Potassium Chloride (K-Dur 20 Meq Er Tab) 20 meq PO DAILY [facility] Last Admin: 03/29/17 09:50 Dose: 20 meq Raltegravir (Isentress) 400 mg PO BID [facility] Last Admin: 03/29/17 09:50 Dose: 400 mg Rosuvastatin Calcium (Crestor) 20 mg PO HS [facility] Last Admin: 03/28/17 21:10 Dose: 20 mg Senna/Docusate Sodium (Senokot S 50 Mg-8.6 Mg) 1 tab PO HS PRN PRN Reason: Constipation Last Admin: 03/28/17 10:05 Dose: 1 tab Sertraline HCl (Zoloft) 50 mg PO DAILY [facility] Last Admin: 03/29/17 09:50 Dose: 50 mg Vitamin A (Vitamin A & D Oint Ud Foilpak) 0.5 ea TOP Q4 PRN PRN Reason: Dry mouth - Labs Labs: 03/29/17 07:50 03/29/17 07:50 Attending/Attestation - Attestation I have personally seen and examined this patient.: Yes I have fully participated in the care of the patient.: Yes I have reviewed all pertinent clinical information, including history, physical exam and plan: Yes Notes (Text): 03/29/17 14:50 Medical Attending: Patient was seen and examined by me. Agree with the above note by the resident This is my first time meeting patient as the hospitalist group is covering patient's physician. Patient has just come out of the ICU recently after having acute respiratory distress from being uroseptic. When we saw patient he appears chronically ill for a very long time now. He is awake, alert, and responded to very simple questions and very simple commands. He reported a lot of chronic pain. From what I am being told he has numerous medical problems including HIV, CHF, lung cancer, COPD, emphesema. For now his vital signs were ok when I saw him, however we need to get a new CXRAY, repeat blood cultures, as well as change the silverman cathter as well as it is not clear how long this cather has been in. He remains on IV abx at this time. Because of his mental status - we have canceled the trazadone as well as canceled the atarax. Hopefully this will help contribute to the patient being more alert. thank you Woodrow Ham
--- NOTE | 2017-03-29 12:31 | RAD ---
HISTORY: dyspnea COMPARISON: 03/22/2017 FINDINGS: LUNGS: There is patient rotation to the left. The right Port-A-Cath terminates in the right atrium. There are low lung volumes. There are chronic changes in the left mid lung and lower lobe and chronic left pleural thickening. PLEURA: No significant right pleural effusion identified, no pneumothorax apparent. CARDIOVASCULAR: There is mild cardiomegaly. Status post CABG. OSSEOUS STRUCTURES: Status post open reduction and internal fixation of proximal right humeral fracture. VISUALIZED UPPER ABDOMEN: Normal. OTHER FINDINGS: None. IMPRESSION: No significant interval change in chronic changes in the left mid lung and lower lobe and chronic left pleural thickening. Clear right lung. Stable position of right Port-A-Cath terminating in the right atrium.
--- NOTE | 2017-03-29 19:06 | CP.PCM.PN ---
Subjective - Date & Time of Evaluation Date of Evaluation: 03/29/17 Time of Evaluation: 08:00 - Subjective Subjective: afebrile awake alert c/o chest discomfort this am - resolved now Objective - Vital Signs/Intake and Output Vital Signs (last 24 hours): Temp Pulse Resp BP Pulse Ox 98.2 F 83 20 122/69 98 03/29/17 15:00 03/29/17 15:00 03/29/17 15:00 03/29/17 15:00 03/29/17 15:00 Intake and Output: 03/29/17 03/30/17 18:59 06:59 Intake Total 500 Output Total 1150 Balance -650 - Medications Medications: Current Medications Acetaminophen (Tylenol 325mg Tab) 650 mg PO Q6H PRN PRN Reason: Fever >100.4 F Last Admin: 03/22/17 10:15 Dose: 650 mg Benztropine Mesylate (Cogentin) 1 mg PO BID [facility] Last Admin: 03/29/17 17:38 Dose: 1 mg Emtricitabine/Tenofovir (Truvada 200 Mg-300 Mg) 1 tab PO DAILY [facility] Last Admin: 03/29/17 09:50 Dose: 1 tab Famotidine (Pepcid) 20 mg PO DAILY [facility] Last Admin: 03/29/17 09:50 Dose: 20 mg Ferrous Sulfate (Feosol) 325 mg PO DAILY [facility] Last Admin: 03/29/17 09:49 Dose: 325 mg Fluphenazine HCl (Prolixin) 5 mg PO BID [facility] Last Admin: 03/29/17 17:38 Dose: 5 mg Imipenem/Cilastatin Sodium 500 (mg/ Sodium Chloride) 100 mls @ 100 mls/hr IVPB Q6H [facility] Last Admin: 03/29/17 16:14 Dose: 100 mls/hr Insulin Aspart (Novolog) 0 unit SC ACHS [facility] PRN Reason: Protocol Last Admin: 03/29/17 17:39 Dose: Not Given Montelukast Sodium (Singulair) 10 mg PO HS [facility] Last Admin: 03/28/17 21:10 Dose: 10 mg Multivitamins (Hexavitamin) 1 tab PO DAILY [facility] Last Admin: 03/29/17 09:50 Dose: 1 tab Potassium Chloride (K-Dur 20 Meq Er Tab) 20 meq PO DAILY [facility] Last Admin: 03/29/17 09:50 Dose: 20 meq Raltegravir (Isentress) 400 mg PO BID [facility] Last Admin: 03/29/17 17:39 Dose: 400 mg Rosuvastatin Calcium (Crestor) 20 mg PO HS [facility] Last Admin: 03/28/17 21:10 Dose: 20 mg Senna/Docusate Sodium (Senokot S 50 Mg-8.6 Mg) 1 tab PO HS PRN PRN Reason: Constipation Last Admin: 03/28/17 10:05 Dose: 1 tab Sertraline HCl (Zoloft) 50 mg PO DAILY [facility] Last Admin: 03/29/17 09:50 Dose: 50 mg Vitamin A (Vitamin A & D Oint Ud Foilpak) 0.5 ea TOP Q4 PRN PRN Reason: Dry mouth - Labs Labs: 03/29/17 07:50 03/29/17 07:50 - Constitutional Appears: Non-toxic, Chronically Ill - Head Exam Head Exam: NORMOCEPHALIC - Eye Exam Eye Exam: PERRL - ENT Exam ENT Exam: Mucous Membranes Dry - Neck Exam Neck Exam: absent: Lymphadenopathy - Respiratory Exam Respiratory Exam: Decreased Breath Sounds - Cardiovascular Exam Cardiovascular Exam: REGULAR RHYTHM - GI/Abdominal Exam GI & Abdominal Exam: Distended Assessment and Plan (1) Anemia Status: Acute (2) CHF (congestive heart failure) Status: Acute (3) COPD (chronic obstructive pulmonary disease) Status: Acute (4) Change in mental status Status: Acute (5) Hypokalemia Status: Acute (6) Sepsis Status: Acute (7) Chest pain Status: Acute - Assessment and Plan (Free Text) Plan: iv rx renewed
[2017-03-30 07:40] LABS: BASO % 0.1 % (0.0-2.0); EOS % 0.7 % (0.0-4.0); HEMATOCRIT 28.8 % (35.0-51.0); LYMPH # 0.2 K/uL (1.0-4.3); LYMPH % 3.9 % (20.0-40.0); MEAN CELL VOLUME 72.1 fL (80.0-94.0); MEAN CORPUSCULAR HEMOGLOBIN 21.4 pg (27.0-31.0); MEAN CORPUSCULAR HGB CONC 29.7 g/dL (33.0-37.0); MEAN PLATELET VOLUME 9.1 fL (7.2-11.7); MONO # 0.1 K/uL (0.0-0.8); MONO % 1.6 % (0.0-10.0); RED CELL DISTRIBUTION WIDTH 30.4 % (11.5-14.5); WHITE BLOOD COUNT 6.3 K/uL (4.8-10.8)
[2017-03-30 07:58] LABS: PLATELET COUNT 18 K/uL (130-400)
[2017-03-30] MEDS: (Novolog) Insulin Aspart, Recombinant 100 u/ml 10 ml vial SC SCH ×4 (08:14→21:34)
--- NOTE | 2017-03-30 08:21 | CP.PCM.PN ---
<Hunter Roman S - Last Filed: 03/30/17 13:59> Subjective - Date & Time of Evaluation Date of Evaluation: 03/30/17 Time of Evaluation: 08:20 - Subjective Subjective: Medicine Note for Dr. Stanley's Service Pt seen and examined at bedside. No acute events reported overnight. Patient is lethargic but is is responsive to some questions. He states that he is feeling a little bitter but does have some chills and mild shortness of breath. Patient has been compliant with medication and diet per nursing staff. Trazadone and atarax were discontinued yesterday due to the pt's lethargy and the inclination of these medications causing sedation. Objective - Vital Signs/Intake and Output Vital Signs (last 24 hours): Temp Pulse Resp BP Pulse Ox 97.4 F L 77 19 102/65 100 03/30/17 08:03 03/30/17 08:03 03/30/17 08:03 03/30/17 08:03 03/30/17 08:03 Intake and Output: 03/30/17 03/30/17 06:59 18:59 Intake Total 940 Output Total 751 Balance 189 - Medications Medications: Current Medications Acetaminophen (Tylenol 325mg Tab) 650 mg PO Q6H PRN PRN Reason: Fever >100.4 F Last Admin: 03/22/17 10:15 Dose: 650 mg Benztropine Mesylate (Cogentin) 1 mg PO BID [facility] Last Admin: 03/29/17 17:38 Dose: 1 mg Emtricitabine/Tenofovir (Truvada 200 Mg-300 Mg) 1 tab PO DAILY [facility] Last Admin: 03/29/17 09:50 Dose: 1 tab Famotidine (Pepcid) 20 mg PO DAILY [facility] Last Admin: 03/29/17 09:50 Dose: 20 mg Ferrous Sulfate (Feosol) 325 mg PO DAILY [facility] Last Admin: 03/29/17 09:49 Dose: 325 mg Fluphenazine HCl (Prolixin) 5 mg PO BID [facility] Last Admin: 03/29/17 17:38 Dose: 5 mg Imipenem/Cilastatin Sodium 500 (mg/ Sodium Chloride) 100 mls @ 100 mls/hr IVPB Q6H [facility] Last Admin: 03/30/17 03:13 Dose: 100 mls/hr Insulin Aspart (Novolog) 0 unit SC ACHS [facility] PRN Reason: Protocol Last Admin: 03/30/17 08:14 Dose: Not Given Montelukast Sodium (Singulair) 10 mg PO HS [facility] Last Admin: 03/29/17 21:12 Dose: 10 mg Multivitamins (Hexavitamin) 1 tab PO DAILY [facility] Last Admin: 03/29/17 09:50 Dose: 1 tab Potassium Chloride (K-Dur 20 Meq Er Tab) 20 meq PO DAILY [facility] Last Admin: 03/29/17 09:50 Dose: 20 meq Raltegravir (Isentress) 400 mg PO BID [facility] Last Admin: 03/29/17 17:39 Dose: 400 mg Rosuvastatin Calcium (Crestor) 20 mg PO HS [facility] Last Admin: 03/29/17 21:11 Dose: 20 mg Senna/Docusate Sodium (Senokot S 50 Mg-8.6 Mg) 1 tab PO HS PRN PRN Reason: Constipation Last Admin: 03/28/17 10:05 Dose: 1 tab Sertraline HCl (Zoloft) 50 mg PO DAILY [facility] Last Admin: 03/29/17 09:50 Dose: 50 mg Vitamin A (Vitamin A & D Oint Ud Foilpak) 0.5 ea TOP Q4 PRN PRN Reason: Dry mouth - Labs Labs: 03/30/17 07:27 03/29/17 07:50 - Constitutional Appears: No Acute Distress (lethargic) - Head Exam Head Exam: ATRAUMATIC - Eye Exam Eye Exam: EOMI - ENT Exam ENT Exam: Mucous Membranes Moist - Respiratory Exam Respiratory Exam: Decreased Breath Sounds, Rhonchi - Cardiovascular Exam Cardiovascular Exam: REGULAR RHYTHM - GI/Abdominal Exam GI & Abdominal Exam: Soft. absent: Tenderness - Neurological Exam Neurological Exam: Alert, Awake Assessment and Plan - Assessment and Plan (Free Text) Plan: Dyspnea- Secondary to COPD v. CHF v. Lung CA v. Pneumonia 03/30:CXR shows minimal change interval from previous study; chronic changes in LML and LLL. He continues to complain of mild SOB but states that he does feel an improvement in his symptoms. He has only been using nasal cannula and refused BIPAP last night. He states the he is fine with just the nasal cannula and does not want the BIPAP. 03/29: Patient downgraded from ICU to telemetry overnight. Patient still has shortness of breath. Repeat CXR. 03/21: FARM SERVICE ADVISER called on patient, hypoxic and hypotensive. ABG showed pH 7.54, PO2 67 PCO2 41. WBC 8.0, Band neutrophils 46%. No acute infiltrate. Possible small r pleural effusion. Patient transferred to ICU for further management 03/20: ABG showed PCO2 69, PO2 46, HCO3 40, pH 7.39, DC planning for tomorrow 03/19: Pt to continue on BIPAP at night; and requires BIPAP at night with discharge Holding off on trach- not a candidate considering comorbidities Tolerating oral intake ABG on 03/13: PCO2/61, PO2/64, HCO3/43.7, pH/7.52- improved from previous ABG CXR 02/25/17: small right greater than left pleural effusions, right sided cv cathether, median sternotomy wires,; patchy airspace opacity at the right lung base; cardiomegaly CXR 03/13- see full report; R sided consolidation and congestion BNP 96531 KCL 20meq PO HS Tylenol prn Sepsis secondary to UTI Patient was started on Primaxin on 03/24, will require at least 14 days per ID Currently afebrile, no leukocytosis Silverman was inserted on 03/22, will need to be replace within 10 days Urine culture from 03/22- Proteus Mirabilis Blood culture from 03/21- Proteus Mirabilis Repeat blood culture ordered- follow up results Thrombocytopenia Likely secondary to sepsis Hold off Lovenox Platelet count today is down to 18 from 22 yesterday Continue to monitor Hypokalemia Stable Monitor daily, supplement as needed K today- 3.8 KCL 20meq PO daily Microcytic Anemia- chronic disease v. iron deficiency Hgb is stable- 8.5 today Feosol 325mg PO daily Continue to monitor Obstructive Sleep Apnea BiPAP ordered for night time use- patient should go to intermediate with BIPAP at night He has been non-compliant with BiPAP History of COPD Well controlled with O2 nasal cannula Singulair 10mg PO daily History of HIV Truvada 1 tab PO daily (home med) Isentress 400mg PO BID (home med) HTN BP meds held due to hypotension- 102/65 today Previous Echo done on 02/26/17- EF 62% (see full report) HLD Crestor 20mg PO HS Psychiatric history- questionable Schizophrenia Fluphenazine 5mg PO BID Benztropine Mesylate 1mg PO BID Zoloft 50mg PO daily Discontinued Atarax and Trazodone due to lethargy Constipation Senna/Docusate Sodium 1 tab PO HS PRN Constipaton Transient hyperglycemia likely secondary to steroid administration ISS Continue to monitor No documented history of DM Accuchecks A1c 6.2 Prophylaxis Pepcid 20mg PO daily [facility] Upon discharge patient will need BiPAP at night. Case discussed with attending Dr. Ham <Woodrow Ham H - Last Filed: 03/31/17 07:37> Objective - Vital Signs/Intake and Output Vital Signs (last 24 hours): Temp Pulse Resp BP Pulse Ox 98.4 F 79 18 106/66 99 03/31/17 00:00 03/31/17 00:00 03/31/17 00:00 03/31/17 00:00 03/31/17 00:00 Intake and Output: 03/31/17 03/31/17 06:59 18:59 Intake Total 1340 Output Total 850 Balance 490 - Medications Medications: Current Medications Acetaminophen (Tylenol 325mg Tab) 650 mg PO Q6H PRN PRN Reason: Fever >100.4 F Last Admin: 03/22/17 10:15 Dose: 650 mg Benztropine Mesylate (Cogentin) 1 mg PO BID [facility] Last Admin: 03/30/17 17:16 Dose: 1 mg Emtricitabine/Tenofovir (Truvada 200 Mg-300 Mg) 1 tab PO DAILY [facility] Last Admin: 03/30/17 09:51 Dose: 1 tab Famotidine (Pepcid) 20 mg PO DAILY [facility] Last Admin: 03/30/17 09:55 Dose: 20 mg Ferrous Sulfate (Feosol) 325 mg PO DAILY [facility] Last Admin: 03/30/17 09:51 Dose: 325 mg Fluphenazine HCl (Prolixin) 5 mg PO BID [facility] Last Admin: 03/30/17 17:15 Dose: 5 mg Imipenem/Cilastatin Sodium 500 (mg/ Sodium Chloride) 100 mls @ 100 mls/hr IVPB Q6H [facility] Last Admin: 03/31/17 04:23 Dose: 100 mls/hr Insulin Aspart (Novolog) 0 unit SC ACHS [facility] PRN Reason: Protocol Last Admin: 03/30/17 21:34 Dose: Not Given Montelukast Sodium (Singulair) 10 mg PO HS [facility] Last Admin: 03/30/17 21:12 Dose: 10 mg Multivitamins (Hexavitamin) 1 tab PO DAILY [facility] Last Admin: 03/30/17 09:51 Dose: 1 tab Potassium Chloride (K-Dur 20 Meq Er Tab) 20 meq PO DAILY [facility] Last Admin: 03/30/17 09:50 Dose: 20 meq Raltegravir (Isentress) 400 mg PO BID [facility] Last Admin: 03/30/17 17:16 Dose: 400 mg Rosuvastatin Calcium (Crestor) 20 mg PO HS [facility] Last Admin: 03/30/17 21:13 Dose: 20 mg Senna/Docusate Sodium (Senokot S 50 Mg-8.6 Mg) 1 tab PO HS PRN PRN Reason: Constipation Last Admin: 03/28/17 10:05 Dose: 1 tab Sertraline HCl (Zoloft) 50 mg PO DAILY [facility] Last Admin: 03/30/17 09:50 Dose: 50 mg Vitamin A (Vitamin A & D Oint Ud Foilpak) 0.5 ea TOP Q4 PRN PRN Reason: Dry mouth - Labs Labs: 03/30/17 07:27 03/30/17 07:27 Attending/Attestation - Attestation I have personally seen and examined this patient.: Yes I have fully participated in the care of the patient.: Yes I have reviewed all pertinent clinical information, including history, physical exam and plan: Yes Notes (Text): Medical Attending: Patient was seen and examined by me. Agree with the above note by the resident. The patient was again somulent. He did wake up when I called his name but then closed his eyes. The patient's CXRAY still does not appear well, will be continuing IV abx. Also pending the repeat blood cultures collected from the yesterday as well. Change silverman cathter. The patient's BP, and HR stable, however platelet count is still low and this maybe still from sepsis. Overall, he appears to have a lot of chronic illness.
[2017-03-30 08:25] LABS: CHLORIDE 101 mmol/L (98-107); SODIUM 139 mmol/L (132-148)
[2017-03-30 08:26] LABS: POTASSIUM 3.8 mmol/L (3.6-5.2)
[2017-03-30 08:28] LABS: ALB/GLOB RATIO 0.7 (1.0-2.1); ALKALINE PHOSPHATASE 216 U/L (38-126); AST/SGOT 113 U/L (17-59); BILIRUBIN,TOTAL 0.7 mg/dL (0.2-1.3); BLOOD UREA NITROGEN 26 mg/dL (9-20); CARBON DIOXIDE 35 mmol/L (22-30); GFR AFRICAN-AMERICAN > 60; GLUCOSE,RANDOM 106 mg/dL (75-110); TOTAL PROTEIN 4.4 g/dL (6.3-8.3)
[2017-03-30 08:29] LABS: ALT/SGPT 94 U/L (21-72)
[2017-03-30 09:20] LABS: NEUTROPHIL 92 % (50-75); TOTAL CELLS COUNTED 100
[2017-03-30 09:23] LABS: LARGE PLATELETS PRESENT
[2017-03-30] MEDS: Potassium Chloride 20 mEq ER Tab PO SCH (09:50)
[2017-03-30] MEDS: Emtricitabine-Tenofovir 200 mg-300 mg Tab PO SCH (09:51)
[2017-03-30] MEDS: Multiple Vitamins Tab PO SCH (09:51)
--- NOTE | 2017-03-31 07:49 | CP.PCM.PN ---
Addendum entered and electronically signed by Hunter Roman 03/31/17 09:45: Consult placed to Dr. Connell for thrombocytopenia evaluation. Original Note: <Hunter Roman - Last Filed: 03/31/17 09:20> Subjective - Date & Time of Evaluation Date of Evaluation: 03/31/17 Time of Evaluation: 07:49 - Subjective Subjective: Medicine Note for Dr. Stanley's Service Pt seen and examined at bedside. He is sleeping comfortably with nasal cannula in place. He is difficult to arouse but does open his eyes when I call his name. He appears lethargic and does not reply to questioning of ROS. Objective - Vital Signs/Intake and Output Vital Signs (last 24 hours): Temp Pulse Resp BP Pulse Ox 98.4 F 79 18 106/66 99 03/31/17 00:00 03/31/17 00:00 03/31/17 00:00 03/31/17 00:00 03/31/17 00:00 Intake and Output: 03/31/17 03/31/17 06:59 18:59 Intake Total 1340 Output Total 850 Balance 490 - Medications Medications: Current Medications Acetaminophen (Tylenol 325mg Tab) 650 mg PO Q6H PRN PRN Reason: Fever >100.4 F Last Admin: 03/22/17 10:15 Dose: 650 mg Benztropine Mesylate (Cogentin) 1 mg PO BID [facility] Last Admin: 03/30/17 17:16 Dose: 1 mg Emtricitabine/Tenofovir (Truvada 200 Mg-300 Mg) 1 tab PO DAILY [facility] Last Admin: 03/30/17 09:51 Dose: 1 tab Famotidine (Pepcid) 20 mg PO DAILY [facility] Last Admin: 03/30/17 09:55 Dose: 20 mg Ferrous Sulfate (Feosol) 325 mg PO DAILY [facility] Last Admin: 03/30/17 09:51 Dose: 325 mg Fluphenazine HCl (Prolixin) 5 mg PO BID [facility] Last Admin: 03/30/17 17:15 Dose: 5 mg Imipenem/Cilastatin Sodium 500 (mg/ Sodium Chloride) 100 mls @ 100 mls/hr IVPB Q6H [facility] Last Admin: 03/31/17 04:23 Dose: 100 mls/hr Insulin Aspart (Novolog) 0 unit SC ACHS [facility] PRN Reason: Protocol Last Admin: 03/30/17 21:34 Dose: Not Given Montelukast Sodium (Singulair) 10 mg PO HS [facility] Last Admin: 03/30/17 21:12 Dose: 10 mg Multivitamins (Hexavitamin) 1 tab PO DAILY [facility] Last Admin: 03/30/17 09:51 Dose: 1 tab Potassium Chloride (K-Dur 20 Meq Er Tab) 20 meq PO DAILY [facility] Last Admin: 03/30/17 09:50 Dose: 20 meq Raltegravir (Isentress) 400 mg PO BID [facility] Last Admin: 03/30/17 17:16 Dose: 400 mg Rosuvastatin Calcium (Crestor) 20 mg PO HS [facility] Last Admin: 03/30/17 21:13 Dose: 20 mg Senna/Docusate Sodium (Senokot S 50 Mg-8.6 Mg) 1 tab PO HS PRN PRN Reason: Constipation Last Admin: 03/28/17 10:05 Dose: 1 tab Sertraline HCl (Zoloft) 50 mg PO DAILY [facility] Last Admin: 03/30/17 09:50 Dose: 50 mg Vitamin A (Vitamin A & D Oint Ud Foilpak) 0.5 ea TOP Q4 PRN PRN Reason: Dry mouth - Labs Labs: 03/30/17 07:27 03/30/17 07:27 - Head Exam Head Exam: ATRAUMATIC - Eye Exam Eye Exam: Normal appearance - ENT Exam ENT Exam: Mucous Membranes Moist - Respiratory Exam Respiratory Exam: Decreased Breath Sounds, Rhonchi - Cardiovascular Exam Cardiovascular Exam: REGULAR RHYTHM - GI/Abdominal Exam GI & Abdominal Exam: Soft. absent: Tenderness - Neurological Exam Neurological Exam: Alert, Awake Assessment and Plan - Assessment and Plan (Free Text) Plan: Dyspnea- Secondary to COPD v. CHF v. Lung CA v. Pneumonia 03/31: Pt does not show any clinical progress today, worsening thrombocytopenia, he continues to have pronounced lethargy. 03/30:CXR shows minimal change interval from previous study; chronic changes in LML and LLL. He continues to complain of mild SOB but states that he does feel an improvement in his symptoms. He has only been using nasal cannula and refused BIPAP last night. He states the he is fine with just the nasal cannula and does not want the BIPAP. 03/29: Patient downgraded from ICU to telemetry overnight. Patient still has shortness of breath. Repeat CXR. 03/21: AIRCRAFT MECHANIC ARMAMENT called on patient, hypoxic and hypotensive. ABG showed pH 7.54, PO2 67 PCO2 41. WBC 8.0, Band neutrophils 46%. No acute infiltrate. Possible small r pleural effusion. Patient transferred to ICU for further management 03/20: ABG showed PCO2 69, PO2 46, HCO3 40, pH 7.39, DC planning for tomorrow 03/19: Pt to continue on BIPAP at night; and requires BIPAP at night with discharge Holding off on trach- not a candidate considering comorbidities Tolerating oral intake ABG on 03/13: PCO2/61, PO2/64, HCO3/43.7, pH/7.52- improved from previous ABG CXR 02/25/17: small right greater than left pleural effusions, right sided cv cathether, median sternotomy wires,; patchy airspace opacity at the right lung base; cardiomegaly CXR 03/13- see full report; R sided consolidation and congestion BNP 24541 KCL 20meq PO HS Tylenol prn Sepsis secondary to UTI Patient was started on Primaxin on 03/24, will require at least 14 days per ID Currently afebrile, no leukocytosis Price was inserted on 03/22, will need to be replace within 10 days Urine culture from 03/22- Proteus Mirabilis Blood culture from 03/21- Proteus Mirabilis Repeat blood culture ordered- follow up results Thrombocytopenia Likely secondary to sepsis Hold off Lovenox Platelet count today is down to 16 Continue to monitor Hypokalemia Stable Monitor daily, supplement as needed K today- 3.3 KCL 20meq PO daily Additional dose of K-Rajwinder given today Microcytic Anemia- chronic disease v. iron deficiency Hgb is stable- 8.4 today Feosol 325mg PO daily Continue to monitor Obstructive Sleep Apnea BiPAP ordered for night time use- patient should go to long term with BIPAP at night He has been non-compliant with BiPAP History of COPD Well controlled with O2 nasal cannula Singulair 10mg PO daily History of HIV Truvada 1 tab PO daily (home med) Isentress 400mg PO BID (home med) HTN BP meds held due to hypotension- 117/61 today Previous Echo done on 02/26/17- EF 62% (see full report) HLD Crestor 20mg PO HS Psychiatric history- questionable Schizophrenia Fluphenazine 5mg PO BID Benztropine Mesylate 1mg PO BID Zoloft 50mg PO daily Discontinued Atarax and Trazodone due to lethargy Constipation Senna/Docusate Sodium 1 tab PO HS PRN Constipaton Transient hyperglycemia likely secondary to steroid administration ISS Continue to monitor No documented history of DM Accuchecks A1c 6.2 Transaminitis Improving 03/31/17 AST 110, ALT 88 Prophylaxis Pepcid 20mg PO daily SCDs Upon discharge patient will need BiPAP at night. Case discussed with attending Dr. Ham <Woodrow Ham H - Last Filed: 03/31/17 10:19> Objective - Vital Signs/Intake and Output Vital Signs (last 24 hours): Temp Pulse Resp BP Pulse Ox 98.2 F 81 20 117/61 99 03/31/17 08:31 03/31/17 08:31 03/31/17 08:31 03/31/17 08:31 03/31/17 08:31 Intake and Output: 03/31/17 03/31/17 06:59 18:59 Intake Total 1340 Output Total 850 Balance 490 - Medications Medications: Current Medications Acetaminophen (Tylenol 325mg Tab) 650 mg PO Q6H PRN PRN Reason: Fever >100.4 F Last Admin: 03/22/17 10:15 Dose: 650 mg Benztropine Mesylate (Cogentin) 1 mg PO BID [facility] Last Admin: 03/31/17 09:38 Dose: 1 mg Emtricitabine/Tenofovir (Truvada 200 Mg-300 Mg) 1 tab PO DAILY [facility] Last Admin: 03/31/17 09:38 Dose: 1 tab Famotidine (Pepcid) 20 mg PO DAILY [facility] Last Admin: 03/31/17 09:38 Dose: 20 mg Ferrous Sulfate (Feosol) 325 mg PO DAILY [facility] Last Admin: 03/31/17 09:37 Dose: 325 mg Fluphenazine HCl (Prolixin) 5 mg PO BID [facility] Last Admin: 03/31/17 09:39 Dose: 5 mg Imipenem/Cilastatin Sodium 500 (mg/ Sodium Chloride) 100 mls @ 100 mls/hr IVPB Q6H [facility] Last Admin: 03/31/17 09:39 Dose: 100 mls/hr Insulin Aspart (Novolog) 0 unit SC ACHS [facility] PRN Reason: Protocol Last Admin: 03/31/17 08:28 Dose: Not Given Montelukast Sodium (Singulair) 10 mg PO HS [facility] Last Admin: 03/30/17 21:12 Dose: 10 mg Multivitamins (Hexavitamin) 1 tab PO DAILY [facility] Last Admin: 03/31/17 09:37 Dose: 1 tab Potassium Chloride (K-Dur 20 Meq Er Tab) 20 meq PO DAILY [facility] Last Admin: 03/31/17 09:38 Dose: 20 meq Raltegravir (Isentress) 400 mg PO BID [facility] Last Admin: 03/31/17 09:38 Dose: 400 mg Rosuvastatin Calcium (Crestor) 20 mg PO HS [facility] Last Admin: 03/30/17 21:13 Dose: 20 mg Senna/Docusate Sodium (Senokot S 50 Mg-8.6 Mg) 1 tab PO HS PRN PRN Reason: Constipation Last Admin: 03/28/17 10:05 Dose: 1 tab Sertraline HCl (Zoloft) 50 mg PO DAILY [facility] Last Admin: 03/31/17 09:37 Dose: 50 mg Vitamin A (Vitamin A & D Oint Ud Foilpak) 0.5 ea TOP Q4 PRN PRN Reason: Dry mouth - Labs Labs: 03/31/17 08:10 03/31/17 08:10 Attending/Attestation - Attestation I have personally seen and examined this patient.: Yes I have fully participated in the care of the patient.: Yes I have reviewed all pertinent clinical information, including history, physical exam and plan: Yes Notes (Text): Medical Attending: Patient was seen and examined by me, agree with the above note by the resident. As mentioned before hospitalist group is covering for the patient's PMD. The patient today was awake, alert, and trying to answer questions. This is the first day I have seen him be able to be this alert. Affect is slow. When asked if he wanted us to talk to family he said wasn't sure. He denied chest pain, denied shortness of breath, and reports he has not walked in over 1 year. At this time he remains on IV abx. He was recently moved out of the ICU. Blood pressure is more stable now. The platelet count is low, probably from the sepsis. Continue to monitor at this time The repeat blood cultures are negative 24 hrs thank you Woodrow Ham 03/31/17 10:19
[2017-03-31 08:26] LABS: BASO % 0.3 % (0.0-2.0); EOS % 0.9 % (0.0-4.0); HEMATOCRIT 28.6 % (35.0-51.0); LYMPH # 0.3 K/uL (1.0-4.3); LYMPH % 5.4 % (20.0-40.0); MEAN CELL VOLUME 72.5 fL (80.0-94.0); MEAN CORPUSCULAR HEMOGLOBIN 21.4 pg (27.0-31.0); MEAN CORPUSCULAR HGB CONC 29.5 g/dL (33.0-37.0); MEAN PLATELET VOLUME 9.6 fL (7.2-11.7); MONO # 0.1 K/uL (0.0-0.8); MONO % 2.7 % (0.0-10.0); NRBC % 0.1 % (0.0-2.0); RED CELL DISTRIBUTION WIDTH 30.7 % (11.5-14.5); WHITE BLOOD COUNT 5.2 K/uL (4.8-10.8)
[2017-03-31] MEDS: (Novolog) Insulin Aspart, Recombinant 100 u/ml 10 ml vial SC SCH ×4 (08:28→21:44)
[2017-03-31 08:33] LABS: CHLORIDE 99 mmol/L (98-107); POTASSIUM 3.3 mmol/L (3.6-5.2); SODIUM 141 mmol/L (132-148)
[2017-03-31 08:35] LABS: ALB/GLOB RATIO 0.6 (1.0-2.1); AST/SGOT 110 U/L (17-59); BILIRUBIN,TOTAL 0.6 mg/dL (0.2-1.3); CARBON DIOXIDE 38 mmol/L (22-30); GFR AFRICAN-AMERICAN > 60; TOTAL PROTEIN 4.4 g/dL (6.3-8.3)
[2017-03-31 08:36] LABS: ALKALINE PHOSPHATASE 216 U/L (38-126); ALT/SGPT 88 U/L (21-72); BLOOD UREA NITROGEN 22 mg/dL (9-20); GLUCOSE,RANDOM 105 mg/dL (75-110); PLATELET COUNT 16 K/uL (130-400)
[2017-03-31] MEDS: Multiple Vitamins Tab PO SCH (09:37)
[2017-03-31] MEDS: Emtricitabine-Tenofovir 200 mg-300 mg Tab PO SCH (09:38)
[2017-03-31] MEDS: Potassium Chloride 20 mEq ER Tab PO SCH (09:38)
[2017-03-31] MEDS ORDERED: Potassium Chloride 20 mEq ER Tab PO ONE (10:00)
[2017-03-31 11:15] LABS: NEUTROPHIL 85 % (50-75); TOTAL CELLS COUNTED 100
[2017-03-31 11:18] LABS: LARGE PLATELETS PRESENT
--- NOTE | 2017-03-31 15:59 | CP.PCM.PN ---
Subjective - Date & Time of Evaluation Date of Evaluation: 03/31/17 Time of Evaluation: 10:00 - Subjective Subjective: No acute events reported overnight. Patient is lethargic but is is responsive to some questions. He states that he is feeling a little bitter but does have some chills and mild shortness of breath Objective - Vital Signs/Intake and Output Vital Signs (last 24 hours): Temp Pulse Resp BP Pulse Ox 98.2 F 81 20 117/61 99 03/31/17 08:31 03/31/17 08:31 03/31/17 08:31 03/31/17 08:31 03/31/17 08:31 Intake and Output: 03/31/17 03/31/17 06:59 18:59 Intake Total 1340 400 Output Total 850 300 Balance 490 100 - Medications Medications: Current Medications Acetaminophen (Tylenol 325mg Tab) 650 mg PO Q6H PRN PRN Reason: Fever >100.4 F Last Admin: 03/22/17 10:15 Dose: 650 mg Benztropine Mesylate (Cogentin) 1 mg PO BID [facility] Last Admin: 03/31/17 09:38 Dose: 1 mg Emtricitabine/Tenofovir (Truvada 200 Mg-300 Mg) 1 tab PO DAILY [facility] Last Admin: 03/31/17 09:38 Dose: 1 tab Famotidine (Pepcid) 20 mg PO DAILY [facility] Last Admin: 03/31/17 09:38 Dose: 20 mg Ferrous Sulfate (Feosol) 325 mg PO DAILY [facility] Last Admin: 03/31/17 09:37 Dose: 325 mg Fluphenazine HCl (Prolixin) 5 mg PO BID [facility] Last Admin: 03/31/17 09:39 Dose: 5 mg Imipenem/Cilastatin Sodium 500 (mg/ Sodium Chloride) 100 mls @ 100 mls/hr IVPB Q6H [facility] Last Admin: 03/31/17 09:39 Dose: 100 mls/hr Insulin Aspart (Novolog) 0 unit SC ACHS [facility] PRN Reason: Protocol Last Admin: 03/31/17 12:02 Dose: Not Given Montelukast Sodium (Singulair) 10 mg PO HS [facility] Last Admin: 03/30/17 21:12 Dose: 10 mg Multivitamins (Hexavitamin) 1 tab PO DAILY [facility] Last Admin: 03/31/17 09:37 Dose: 1 tab Potassium Chloride (K-Dur 20 Meq Er Tab) 20 meq PO DAILY [facility] Last Admin: 03/31/17 09:38 Dose: 20 meq Raltegravir (Isentress) 400 mg PO BID [facility] Last Admin: 03/31/17 09:38 Dose: 400 mg Rosuvastatin Calcium (Crestor) 20 mg PO HS [facility] Last Admin: 03/30/17 21:13 Dose: 20 mg Senna/Docusate Sodium (Senokot S 50 Mg-8.6 Mg) 1 tab PO HS PRN PRN Reason: Constipation Last Admin: 03/28/17 10:05 Dose: 1 tab Sertraline HCl (Zoloft) 50 mg PO DAILY [facility] Last Admin: 03/31/17 09:37 Dose: 50 mg Vitamin A (Vitamin A & D Oint Ud Foilpak) 0.5 ea TOP Q4 PRN PRN Reason: Dry mouth - Labs Labs: 03/31/17 08:10 03/31/17 08:10 - Constitutional Appears: Non-toxic, Cachectic - Head Exam Head Exam: NORMOCEPHALIC - Eye Exam Eye Exam: PERRL - ENT Exam ENT Exam: Mucous Membranes Dry - Neck Exam Neck Exam: absent: Lymphadenopathy - Respiratory Exam Respiratory Exam: Decreased Breath Sounds - Cardiovascular Exam Cardiovascular Exam: REGULAR RHYTHM - GI/Abdominal Exam GI & Abdominal Exam: Distended - Rectal Exam Rectal Exam: Deferred - Exam Exam: NORMAL INSPECTION Assessment and Plan (1) Anemia Status: Acute (2) CHF (congestive heart failure) Status: Acute (3) COPD (chronic obstructive pulmonary disease) Status: Acute (4) Change in mental status Status: Acute (5) Hypokalemia Status: Acute (6) Sepsis Status: Acute (7) Chest pain Status: Acute - Assessment and Plan (Free Text) Plan: to cont iv rx for gram neg sepsis poor prognosis heme follow up
--- NOTE | 2017-03-31 20:02 | CP.PCM.CON ---
History of Present Illness - History of Present Illness History of Present Illness: 66 year old male with a history of COPD, HIV, aortic stenosis, chronic anemia, ? lung cancer (pt denies), admitted with AMS and shortness of breath, currently undergoing treatment for urosepsis, with progressive thrombocytopenia. The patient denies having blood problems in the past. He denies abnormal bleeding and bruising. His platelet count on this admission has ranged from normal and nadired at 16,000. Past medical history: Above Past surgical history: Shoulder surgery post fall Family history: Denies hematologic and oncologic problems Social history: Smokes 1ppd, denies alcohol, and illicit drug use. Alergies: Plavix Review of systems: All remaining review of systems including HEENT, cardiovascular, respiratory, gastrointestinal, genitourinary, musculoskeletal, dermatologic, neurologic, and psychiatric are negative unless mentioned in the HPI. Past Patient History - Past Medical History & Family History Past Medical History?: Yes - Past Social History Smoking Status: Former Smoker - CARDIAC Hx Congestive Heart Failure: Yes - PULMONARY Hx Chronic Obstructive Pulmonary Disease (COPD): Yes - ENDOCRINE/METABOLIC Hx Endocrine Disorders: Yes Hx Diabetes Mellitus Type 2: Yes - HEMATOLOGICAL/ONCOLOGICAL Hx Human Immunodeficiency Virus (HIV): Yes - MUSCULOSKELETAL/RHEUMATOLOGICAL Hx Arthritis: Yes Hx Falls: Yes Hx Fractures: Yes (left lower leg, wrist , hand) - PSYCHIATRIC Hx Substance Use: No - SURGICAL HISTORY Hx Surgeries: Yes Hx Orthopedic Surgery: Yes (right shoulder torn rotator cuff 3 yr ago) - ANESTHESIA Hx Anesthesia: Yes Hx Anesthesia Reactions: No Hx Malignant Hyperthermia: No Meds Allergies/Adverse Reactions: Allergies Allergy/AdvReac Type Severity Reaction Status Date / Time clopidogrel [From Plavix] Allergy Verified 03/08/17 13:31 seafood Allergy Uncoded 03/08/17 13:31 - Medications Medications: Current Medications Acetaminophen (Tylenol 325mg Tab) 650 mg PO Q6H PRN PRN Reason: Fever >100.4 F Last Admin: 03/22/17 10:15 Dose: 650 mg Benztropine Mesylate (Cogentin) 1 mg PO BID [facility] Last Admin: 03/31/17 18:06 Dose: 1 mg Emtricitabine/Tenofovir (Truvada 200 Mg-300 Mg) 1 tab PO DAILY [facility] Last Admin: 03/31/17 09:38 Dose: 1 tab Famotidine (Pepcid) 20 mg PO DAILY [facility] Last Admin: 03/31/17 09:38 Dose: 20 mg Ferrous Sulfate (Feosol) 325 mg PO DAILY [facility] Last Admin: 03/31/17 09:37 Dose: 325 mg Fluphenazine HCl (Prolixin) 5 mg PO BID [facility] Last Admin: 03/31/17 18:06 Dose: 5 mg Meropenem 500 mg/ Sodium (Chloride) 100 mls @ 100 mls/hr IVPB Q8 [facility] Insulin Aspart (Novolog) 0 unit SC ACHS [facility] PRN Reason: Protocol Last Admin: 03/31/17 18:06 Dose: Not Given Montelukast Sodium (Singulair) 10 mg PO HS [facility] Last Admin: 03/30/17 21:12 Dose: 10 mg Multivitamins (Hexavitamin) 1 tab PO DAILY [facility] Last Admin: 03/31/17 09:37 Dose: 1 tab Potassium Chloride (K-Dur 20 Meq Er Tab) 20 meq PO DAILY [facility] Last Admin: 03/31/17 09:38 Dose: 20 meq Raltegravir (Isentress) 400 mg PO BID [facility] Last Admin: 03/31/17 18:06 Dose: 400 mg Rosuvastatin Calcium (Crestor) 20 mg PO HS [facility] Last Admin: 03/30/17 21:13 Dose: 20 mg Senna/Docusate Sodium (Senokot S 50 Mg-8.6 Mg) 1 tab PO HS PRN PRN Reason: Constipation Last Admin: 03/28/17 10:05 Dose: 1 tab Sertraline HCl (Zoloft) 50 mg PO DAILY [facility] Last Admin: 03/31/17 09:37 Dose: 50 mg Vitamin A (Vitamin A & D Oint Ud Foilpak) 0.5 ea TOP Q4 PRN PRN Reason: Dry mouth Physical Exam - Head Exam Head Exam: ATRAUMATIC - Eye Exam Eye Exam: Normal appearance - ENT Exam ENT Exam: Mucous Membranes Dry - Respiratory Exam Respiratory Exam: NORMAL BREATHING PATTERN - Cardiovascular Exam Cardiovascular Exam: +S1, +S2 - GI/Abdominal Exam GI & Abdominal Exam: Normal Bowel Sounds - Extremities Exam Extremities exam: Positive for: pedal edema Results - Vital Signs Recent Vital Signs: Last Vital Signs Temp 98.2 F 03/31/17 08:31 Pulse 81 03/31/17 08:31 Resp 20 03/31/17 08:31 BP 117/61 03/31/17 08:31 Pulse Ox 99 03/31/17 08:31 - Labs Result Diagrams: 03/31/17 08:10 03/31/17 08:10 Labs: Laboratory Results - last 24 hr 03/30/17 03/31/17 03/31/17 21:07 07:10 08:10 WBC 5.2 RBC 3.94 L Hgb 8.4 L Hct 28.6 L MCV 72.5 L MCH 21.4 L MCHC 29.5 L RDW 30.7 H Plt Count 16 L* MPV 9.6 Neut % (Auto) 90.7 H Lymph % (Auto) 5.4 L Lanier % (Auto) 2.7 Eos % (Auto) 0.9 Baso % (Auto) 0.3 Neut # 4.7 Lymph # 0.3 L Lanier # 0.1 Eos # 0.0 Baso # 0.0 Neutrophils % (Manual) 85 H Band Neutrophils % 6 H Lymphocytes % (Manual) 5 L Monocytes % (Manual) 4 Toxic Granulation Present Platelet Estimate Markedly decreased L Large Platelets Present Polychromasia Slight Hypochromasia (manual) Slight Poikilocytosis (manual Slight Anisocytosis (manual) Slight Ovalocytes Slight Sodium Potassium Chloride Carbon Dioxide Anion Gap BUN Creatinine Est GFR ( Amer) Est GFR (Non-Af Amer) POC Glucose (mg/dL) 145 H 114 H Random Glucose Calcium Total Bilirubin AST ALT Alkaline Phosphatase Total Protein Albumin Globulin Albumin/Globulin Ratio 03/31/17 03/31/17 03/31/17 08:10 11:18 16:54 WBC RBC Hgb Hct MCV MCH MCHC RDW Plt Count MPV Neut % (Auto) Lymph % (Auto) Lanier % (Auto) Eos % (Auto) Baso % (Auto) Neut # Lymph # Lanier # Eos # Baso # Neutrophils % (Manual) Band Neutrophils % Lymphocytes % (Manual) Monocytes % (Manual) Toxic Granulation Platelet Estimate Large Platelets Polychromasia Hypochromasia (manual) Poikilocytosis (manual Anisocytosis (manual) Ovalocytes Sodium 141 Potassium 3.3 L Chloride 99 Carbon Dioxide 38 H Anion Gap 7 L BUN 22 H Creatinine 0.6 L Est GFR ( Amer) > 60 Est GFR (Non-Af Amer) > 60 POC Glucose (mg/dL) 113 H 95 Random Glucose 105 Calcium 7.0 L Total Bilirubin 0.6 AST 110 H ALT 88 H Alkaline Phosphatase 216 H Total Protein 4.4 L Albumin 1.7 L Globulin 2.7 Albumin/Globulin Ratio 0.6 L Assessment & Plan (1) Thrombocytopenia Assessment and Plan: likely multifactorial element of HIV, hepatitis, sepsis ?medication induced will review peripheral smear recommend plt transfusion if plt < 20,000 tomorrow Status: Acute (2) Anemia Assessment and Plan: iron deficiency on oral iron transfusion support PRN consider GI w/u once acute illness and thrombocytopenia resolves Thank you for this interesting consult. Status: Acute
[2017-03-31] MEDS: Meropenem 500 MG in Sodium Chloride 0.9% 100 ML IVPB SCH (21:45)
[2017-04-01] MEDS: Meropenem 500 MG in Sodium Chloride 0.9% 100 ML IVPB SCH ×3 (05:46→21:25)
[2017-04-01] MEDS: (Novolog) Insulin Aspart, Recombinant 100 u/ml 10 ml vial SC SCH ×4 (07:49→23:01)
--- NOTE | 2017-04-01 08:04 | CP.PCM.PN ---
<Aminata Mccloud - Last Filed: 04/01/17 13:36> Subjective - Date & Time of Evaluation Date of Evaluation: 04/01/17 Time of Evaluation: 08:00 - Subjective Subjective: Medicine Note for Dr. Stanley's Service Patient was seen and examined at bedside this AM. Patient states he currently has a few mouth lesions that is causing him discomfort while swallowing. Patient denies nausea, vomiting, chest pain, difficulty breathing or any other complaints. Objective - Vital Signs/Intake and Output Vital Signs (last 24 hours): Temp Pulse Resp BP Pulse Ox 97.6 F 84 18 104/64 98 04/01/17 00:48 04/01/17 00:48 04/01/17 00:48 04/01/17 00:48 04/01/17 00:48 Intake and Output: 04/01/17 04/01/17 06:59 18:59 Intake Total 550 Output Total 1200 Balance -650 - Medications Medications: Current Medications Acetaminophen (Tylenol 325mg Tab) 650 mg PO Q6H PRN PRN Reason: Fever >100.4 F Last Admin: 03/22/17 10:15 Dose: 650 mg Benztropine Mesylate (Cogentin) 1 mg PO BID [facility] Last Admin: 03/31/17 18:06 Dose: 1 mg Emtricitabine/Tenofovir (Truvada 200 Mg-300 Mg) 1 tab PO DAILY [facility] Last Admin: 03/31/17 09:38 Dose: 1 tab Famotidine (Pepcid) 20 mg PO DAILY [facility] Last Admin: 03/31/17 09:38 Dose: 20 mg Ferrous Sulfate (Feosol) 325 mg PO DAILY [facility] Last Admin: 03/31/17 09:37 Dose: 325 mg Fluphenazine HCl (Prolixin) 5 mg PO BID [facility] Last Admin: 03/31/17 18:06 Dose: 5 mg Meropenem 500 mg/ Sodium (Chloride) 100 mls @ 100 mls/hr IVPB Q8 [facility] Last Admin: 04/01/17 05:46 Dose: 100 mls/hr Insulin Aspart (Novolog) 0 unit SC ACHS [facility] PRN Reason: Protocol Last Admin: 04/01/17 07:49 Dose: Not Given Montelukast Sodium (Singulair) 10 mg PO HS [facility] Last Admin: 08/27/17 21:46 Dose: 10 mg Multivitamins (Hexavitamin) 1 tab PO DAILY [facility] Last Admin: 03/31/17 09:37 Dose: 1 tab Potassium Chloride (K-Dur 20 Meq Er Tab) 20 meq PO DAILY [facility] Last Admin: 03/31/17 09:38 Dose: 20 meq Raltegravir (Isentress) 400 mg PO BID [facility] Last Admin: 03/31/17 18:06 Dose: 400 mg Rosuvastatin Calcium (Crestor) 20 mg PO HS [facility] Last Admin: 03/31/17 21:46 Dose: 20 mg Senna/Docusate Sodium (Senokot S 50 Mg-8.6 Mg) 1 tab PO HS PRN PRN Reason: Constipation Last Admin: 03/28/17 10:05 Dose: 1 tab Sertraline HCl (Zoloft) 50 mg PO DAILY [facility] Last Admin: 03/31/17 09:37 Dose: 50 mg Vitamin A (Vitamin A & D Oint Ud Foilpak) 0.5 ea TOP Q4 PRN PRN Reason: Dry mouth - Labs Labs: 03/31/17 08:10 03/31/17 08:10 - Constitutional Appears: Well, No Acute Distress - Head Exam Head Exam: ATRAUMATIC, NORMAL INSPECTION, NORMOCEPHALIC - Eye Exam Eye Exam: EOMI, Normal appearance, PERRL Pupil Exam: NORMAL ACCOMODATION, PERRL - ENT Exam ENT Exam: Mucous Membranes Dry. absent: Normal Oropharynx (ulcerated lesions in the back of the hard palate. ) - Respiratory Exam Respiratory Exam: Clear to Ausculation Bilateral, NORMAL BREATHING PATTERN. absent: Decreased Breath Sounds, Rales, Rhonchi, Wheezes, Respiratory Distress, Stridor - Cardiovascular Exam Cardiovascular Exam: REGULAR RHYTHM, RRR, +S1, +S2 - GI/Abdominal Exam GI & Abdominal Exam: Soft, Normal Bowel Sounds. absent: Tenderness Additional comments: large abdomen due large body habitus - Extremities Exam Extremities Exam: absent: Pedal Edema, Tenderness - Neurological Exam Neurological Exam: Alert, Awake, Oriented x3 - Psychiatric Exam Psychiatric exam: Normal Affect - Skin Skin Exam: Warm Additional comments: subcutaneous hematomas on the left side of abdomen and on the right forearm Assessment and Plan - Assessment and Plan (Free Text) Plan: Dyspnea- Secondary to COPD v. CHF v. Lung CA v. Pneumonia 04/01: Patient was alert and oriented, Improvement of thrombocytopenia 03/29:CXR shows minimal change interval from previous study; chronic changes in LML and LLL. He continues to complain of mild SOB but states that he does feel an improvement in his symptoms. He has only been using nasal cannula and refused BIPAP last night. He states the he is fine with just the nasal cannula and does not want the BIPAP. Sepsis secondary to UTI Patient was started on Meropenem 500mg on 03/31 Patient was started on Primaxin on 03/24 and was discontinued 03/31 Currently afebrile, no leukocytosis Price was inserted on 03/22 - Price was discontinued 04/01 Urine culture from 03/22- Proteus Mirabilis Blood culture from 03/21- Proteus Mirabilis Repeat blood culture 03/29: No growth (preliminary) Thrombocytopenia Likely secondary to sepsis or HIV Hold off Lovenox Platelet count has improved to [address] Connell do not transfuse platelets unless <20 Continue to monitor Mouth Sores Magic Mouthwash Q4H Hypokalemia Stable Monitor daily, supplement as needed Microcytic Anemia- chronic disease v. iron deficiency Hgb is stable- 8.1 today Feosol 325mg PO daily Continue to monitor Obstructive Sleep Apnea BiPAP ordered for night time use- patient should go to longterm with BIPAP at night He has been non-compliant with BiPAP History of COPD Well controlled with O2 nasal cannula Singulair 10mg PO daily History of HIV Truvada 1 tab PO daily (home med) Isentress 400mg PO BID (home med) HTN BP meds held due to hypotension- 104/64 today Previous Echo done on 02/26/17- EF 62% (see full report) HLD Crestor 20mg PO HS Psychiatric history- questionable Schizophrenia Fluphenazine 5mg PO BID Benztropine Mesylate 1mg PO BID Zoloft 50mg PO daily Discontinued Atarax and Trazodone due to lethargy Constipation Senna/Docusate Sodium 1 tab PO HS PRN Constipaton Transient hyperglycemia likely secondary to steroid administration ISS Continue to monitor No documented history of DM Accuchecks A1c 6.2 Transaminitis Improving 04/01/17 AST/ALT: 97/82 Prophylaxis Pepcid 20mg PO daily S[facility] VTE prophylaxis due to thrombocytopenia PT Eval and Treat Upon discharge patient will need BiPAP at night. Case discussed with attending Dr. Walsh <Garett Walsh M - Last Filed: 04/02/17 07:44> Objective - Vital Signs/Intake and Output Vital Signs (last 24 hours): Temp Pulse Resp BP Pulse Ox 98.2 F 78 16 113/69 98 04/01/17 23:00 04/01/17 23:00 04/01/17 23:00 04/01/17 23:00 04/01/17 23:00 Intake and Output: 04/02/17 04/02/17 06:59 18:59 Intake Total 400 Output Total 1 Balance 399 - Medications Medications: Current Medications Acetaminophen (Tylenol 325mg Tab) 650 mg PO Q6H PRN PRN Reason: Fever >100.4 F Last Admin: 03/22/17 10:15 Dose: 650 mg Benztropine Mesylate (Cogentin) 1 mg PO BID [facility] Last Admin: 04/01/17 17:44 Dose: 1 mg Emtricitabine/Tenofovir (Truvada 200 Mg-300 Mg) 1 tab PO DAILY [facility] Last Admin: 04/01/17 09:23 Dose: 1 tab Famotidine (Pepcid) 20 mg PO DAILY [facility] Last Admin: 04/01/17 09:23 Dose: 20 mg Ferrous Sulfate (Feosol) 325 mg PO DAILY [facility] Last Admin: 04/01/17 09:23 Dose: 325 mg Fluphenazine HCl (Prolixin) 5 mg PO BID [facility] Last Admin: 04/01/17 17:44 Dose: 5 mg Meropenem 500 mg/ Sodium (Chloride) 100 mls @ 100 mls/hr IVPB Q8 [facility] Last Admin: 04/02/17 06:32 Dose: 100 mls/hr Insulin Aspart (Novolog) 0 unit SC ACHS [facility] PRN Reason: Protocol Last Admin: 04/01/17 23:01 Dose: Not Given Montelukast Sodium (Singulair) 10 mg PO HS [facility] Last Admin: 04/01/17 21:53 Dose: 10 mg Multivitamins (Hexavitamin) 1 tab PO DAILY [facility] Last Admin: 04/01/17 09:23 Dose: 1 tab Potassium Chloride (K-Dur 20 Meq Er Tab) 20 meq PO DAILY [facility] Last Admin: 04/01/17 09:23 Dose: 20 meq Raltegravir (Isentress) 400 mg PO BID [facility] Last Admin: 04/01/17 17:44 Dose: 400 mg Rosuvastatin Calcium (Crestor) 20 mg PO HS [facility] Last Admin: 04/01/17 21:25 Dose: 20 mg Saliva Substitute (First Magic Mouthwash) 5 ml PO Q4H [facility] Last Admin: 04/02/17 04:42 Dose: Not Given Senna/Docusate Sodium (Senokot S 50 Mg-8.6 Mg) 1 tab PO HS PRN PRN Reason: Constipation Last Admin: 03/28/17 10:05 Dose: 1 tab Sertraline HCl (Zoloft) 50 mg PO DAILY [facility] Last Admin: 04/01/17 09:23 Dose: 50 mg Vitamin A (Vitamin A & D Oint Ud Foilpak) 0.5 ea TOP Q4 PRN PRN Reason: Dry mouth - Labs Labs: 04/01/17 07:49 04/01/17 07:49 Attending/Attestation - Attestation I have personally seen and examined this patient.: Yes I have fully participated in the care of the patient.: Yes I have reviewed all pertinent clinical information, including history, physical exam and plan: Yes Notes (Text): 04/02/17 07:[address] Stanley Patient was seen and examined at bedside with the resident Complains of mouth sores. Will start magic mouth wash and monitor closely Continue Meropenem for Sepsis secondary to UTI Continue HIV medication Monitor platelets closely and transfuse if < 20k as per Dr Connell Discussed the plan of care with the resident and I agree with the assessment/ plan documented.
[2017-04-01 08:05] LABS: BASO % 0.2 % (0.0-2.0); LYMPH # 0.3 K/uL (1.0-4.3); LYMPH % 6.7 % (20.0-40.0); MEAN CELL VOLUME 72.6 fL (80.0-94.0); MEAN CORPUSCULAR HEMOGLOBIN 21.3 pg (27.0-31.0); MEAN CORPUSCULAR HGB CONC 29.3 g/dL (33.0-37.0); MEAN PLATELET VOLUME 9.1 fL (7.2-11.7); MONO # 0.2 K/uL (0.0-0.8); MONO % 4.8 % (0.0-10.0); RED CELL DISTRIBUTION WIDTH 30.5 % (11.5-14.5); WHITE BLOOD COUNT 3.7 K/uL (4.8-10.8)
[2017-04-01 08:20] LABS: HEMATOCRIT 27.2 % (35.0-51.0); PLATELET COUNT 24 K/uL (130-400)
[2017-04-01 08:42] LABS: CHLORIDE 99 mmol/L (98-107)
[2017-04-01 08:43] LABS: POTASSIUM 3.7 mmol/L (3.6-5.2); SODIUM 140 mmol/L (132-148)
[2017-04-01 08:45] LABS: BILIRUBIN,TOTAL 0.6 mg/dL (0.2-1.3); CARBON DIOXIDE 37 mmol/L (22-30); GFR AFRICAN-AMERICAN > 60
[2017-04-01 08:46] LABS: ALB/GLOB RATIO 0.6 (1.0-2.1); ALKALINE PHOSPHATASE 215 U/L (38-126); ALT/SGPT 82 U/L (21-72); AST/SGOT 97 U/L (17-59); BLOOD UREA NITROGEN 21 mg/dL (9-20); CALCIUM 6.7 mg/dl (8.6-10.4); GLUCOSE,RANDOM 92 mg/dL (75-110); TOTAL PROTEIN 4.3 g/dL (6.3-8.3)
[2017-04-01 09:23] LABS: EOSINOPHIL 1 % (0-4); NEUTROPHIL 83 % (50-75); TOTAL CELLS COUNTED 100
[2017-04-01] MEDS: Emtricitabine-Tenofovir 200 mg-300 mg Tab PO SCH (09:23)
[2017-04-01] MEDS: Multiple Vitamins Tab PO SCH (09:23)
[2017-04-01] MEDS: Potassium Chloride 20 mEq ER Tab PO SCH (09:23)
[2017-04-01] MEDS: Mag&Al/Simet/Diphen/Lido 237 ML KIT PO SCH ×5 (12:25→23:45)
--- NOTE | 2017-04-01 21:38 | CP.PCM.PN ---
Subjective - Date & Time of Evaluation Date of Evaluation: 04/01/17 Time of Evaluation: 19:00 - Subjective Subjective: Has sores in mouth Objective - Vital Signs/Intake and Output Vital Signs (last 24 hours): Temp Pulse Resp BP Pulse Ox 97.8 F 78 20 119/69 97 04/01/17 15:15 04/01/17 15:15 04/01/17 15:15 04/01/17 15:15 04/01/17 15:15 Intake and Output: 04/01/17 04/02/17 18:59 06:59 Intake Total 340 Output Total 300 Balance 40 - Medications Medications: Current Medications Acetaminophen (Tylenol 325mg Tab) 650 mg PO Q6H PRN PRN Reason: Fever >100.4 F Last Admin: 03/22/17 10:15 Dose: 650 mg Benztropine Mesylate (Cogentin) 1 mg PO BID [facility] Last Admin: 04/01/17 17:44 Dose: 1 mg Emtricitabine/Tenofovir (Truvada 200 Mg-300 Mg) 1 tab PO DAILY [facility] Last Admin: 04/01/17 09:23 Dose: 1 tab Famotidine (Pepcid) 20 mg PO DAILY [facility] Last Admin: 04/01/17 09:23 Dose: 20 mg Ferrous Sulfate (Feosol) 325 mg PO DAILY [facility] Last Admin: 04/01/17 09:23 Dose: 325 mg Fluphenazine HCl (Prolixin) 5 mg PO BID [facility] Last Admin: 04/01/17 17:44 Dose: 5 mg Meropenem 500 mg/ Sodium (Chloride) 100 mls @ 100 mls/hr IVPB Q8 [facility] Last Admin: 04/01/17 21:25 Dose: 100 mls/hr Insulin Aspart (Novolog) 0 unit SC ACHS [facility] PRN Reason: Protocol Last Admin: 04/01/17 17:02 Dose: Not Given Montelukast Sodium (Singulair) 10 mg PO HS [facility] Last Admin: 03/31/17 21:46 Dose: 10 mg Multivitamins (Hexavitamin) 1 tab PO DAILY [facility] Last Admin: 04/01/17 09:23 Dose: 1 tab Potassium Chloride (K-Dur 20 Meq Er Tab) 20 meq PO DAILY [facility] Last Admin: 04/01/17 09:23 Dose: 20 meq Raltegravir (Isentress) 400 mg PO BID [facility] Last Admin: 04/01/17 17:44 Dose: 400 mg Rosuvastatin Calcium (Crestor) 20 mg PO HS [facility] Last Admin: 04/01/17 21:25 Dose: 20 mg Saliva Substitute (First Magic Mouthwash) 5 ml PO Q4H [facility] Last Admin: 04/01/17 21:27 Dose: 5 ml Senna/Docusate Sodium (Senokot S 50 Mg-8.6 Mg) 1 tab PO HS PRN PRN Reason: Constipation Last Admin: 03/28/17 10:05 Dose: 1 tab Sertraline HCl (Zoloft) 50 mg PO DAILY [facility] Last Admin: 04/01/17 09:23 Dose: 50 mg Vitamin A (Vitamin A & D Oint Ud Foilpak) 0.5 ea TOP Q4 PRN PRN Reason: Dry mouth - Labs Labs: 04/01/17 07:49 04/01/17 07:49 - Head Exam Head Exam: ATRAUMATIC - Eye Exam Eye Exam: Normal appearance - ENT Exam ENT Exam: Mucous Membranes Dry - Respiratory Exam Respiratory Exam: NORMAL BREATHING PATTERN - Cardiovascular Exam Cardiovascular Exam: +S1, +S2 - GI/Abdominal Exam GI & Abdominal Exam: Normal Bowel Sounds Assessment and Plan (1) Thrombocytopenia Assessment & Plan: improved HIV, hepatitis, sepsis Status: Acute (2) Anemia Assessment & Plan: iron deficiency iron supplementation once sepsis resolves GI evaluation once acute illness resolved Status: Acute
[2017-04-02] MEDS: Mag&Al/Simet/Diphen/Lido 237 ML KIT PO SCH ×5 (04:42→21:00)
[2017-04-02] MEDS: Meropenem 500 MG in Sodium Chloride 0.9% 100 ML IVPB SCH ×3 (06:32→21:37)
[2017-04-02 07:35] LABS: BASO % 0.5 % (0.0-2.0); EOS % 1.3 % (0.0-4.0); HEMATOCRIT 28.1 % (35.0-51.0); LYMPH # 0.3 K/uL (1.0-4.3); LYMPH % 8.9 % (20.0-40.0); MEAN CELL VOLUME 72.4 fL (80.0-94.0); MEAN CORPUSCULAR HEMOGLOBIN 21.2 pg (27.0-31.0); MEAN CORPUSCULAR HGB CONC 29.3 g/dL (33.0-37.0); MEAN PLATELET VOLUME 8.5 fL (7.2-11.7); MONO # 0.2 K/uL (0.0-0.8); MONO % 6.8 % (0.0-10.0); NRBC % 0.1 % (0.0-2.0); RED CELL DISTRIBUTION WIDTH 30.7 % (11.5-14.5); WHITE BLOOD COUNT 3.2 K/uL (4.8-10.8)
[2017-04-02 07:47] LABS: PLATELET COUNT 25 K/uL (130-400)
[2017-04-02 07:49] LABS: POTASSIUM 3.5 mmol/L (3.6-5.2)
[2017-04-02 07:51] LABS: ALB/GLOB RATIO 0.6 (1.0-2.1); AST/SGOT 101 U/L (17-59); BILIRUBIN,TOTAL 0.6 mg/dL (0.2-1.3); CARBON DIOXIDE 37 mmol/L (22-30); GFR AFRICAN-AMERICAN > 60; TOTAL PROTEIN 4.6 g/dL (6.3-8.3)
[2017-04-02 07:58] LABS: ALKALINE PHOSPHATASE 248 U/L (38-126); ALT/SGPT 80 U/L (21-72); BLOOD UREA NITROGEN 21 mg/dL (9-20); CALCIUM 6.7 mg/dl (8.6-10.4); CHLORIDE 98 mmol/L (98-107); GLUCOSE,RANDOM 82 mg/dL (75-110); SODIUM 138 mmol/L (132-148)
[2017-04-02] MEDS: (Novolog) Insulin Aspart, Recombinant 100 u/ml 10 ml vial SC SCH ×4 (08:04→21:41)
[2017-04-02 09:03] LABS: BASOPHIL 1 % (0-2); NEUTROPHIL 82 % (50-75); TOTAL CELLS COUNTED 100
--- NOTE | 2017-04-02 09:20 | CP.PCM.PN ---
Subjective - Date & Time of Evaluation Date of Evaluation: 04/02/17 Time of Evaluation: 07:10 - Subjective Subjective: PGY2 Resident - Medicine Progress Note Patient seen and examined at bedside. No overnight events per nursing. Patient continues to complain of several mouth lesions that are causing him discomfort while swallowing. Improving with Magic Mouthwash. Denies fever, chills, headache , changes in vision, chest pain, palpitations, dyspnea, cough, abdominal pain, nausea/vomiting, diarrhea/constipation, dysuria, urinary frequency, change in urinary stream, or any additional acute complaints. Objective - Vital Signs/Intake and Output Vital Signs (last 24 hours): Temp Pulse Resp BP Pulse Ox 97.4 F L 97 H 20 98/65 L 97 04/02/17 08:43 04/02/17 08:43 04/02/17 08:43 04/02/17 08:43 04/02/17 08:43 Intake and Output: 04/02/17 04/02/17 06:59 18:59 Intake Total 400 Output Total 1 Balance 399 - Medications Medications: Current Medications Acetaminophen (Tylenol 325mg Tab) 650 mg PO Q6H PRN PRN Reason: Fever >100.4 F Last Admin: 03/22/17 10:15 Dose: 650 mg Benztropine Mesylate (Cogentin) 1 mg PO BID [facility] Last Admin: 04/01/17 17:44 Dose: 1 mg Emtricitabine/Tenofovir (Truvada 200 Mg-300 Mg) 1 tab PO DAILY [facility] Last Admin: 04/01/17 09:23 Dose: 1 tab Famotidine (Pepcid) 20 mg PO DAILY [facility] Last Admin: 04/01/17 09:23 Dose: 20 mg Ferrous Sulfate (Feosol) 325 mg PO DAILY [facility] Last Admin: 04/01/17 09:23 Dose: 325 mg Fluphenazine HCl (Prolixin) 5 mg PO BID [facility] Last Admin: 04/01/17 17:44 Dose: 5 mg Meropenem 500 mg/ Sodium (Chloride) 100 mls @ 100 mls/hr IVPB Q8 [facility] Last Admin: 04/02/17 06:32 Dose: 100 mls/hr Insulin Aspart (Novolog) 0 unit SC ACHS [facility] PRN Reason: Protocol Last Admin: 04/02/17 08:04 Dose: Not Given Montelukast Sodium (Singulair) 10 mg PO HS [facility] Last Admin: 04/01/17 21:53 Dose: 10 mg Multivitamins (Hexavitamin) 1 tab PO DAILY [facility] Last Admin: 04/01/17 09:23 Dose: 1 tab Potassium Chloride (K-Dur 20 Meq Er Tab) 20 meq PO DAILY [facility] Last Admin: 04/01/17 09:23 Dose: 20 meq Raltegravir (Isentress) 400 mg PO BID [facility] Last Admin: 04/01/17 17:44 Dose: 400 mg Rosuvastatin Calcium (Crestor) 20 mg PO HS [facility] Last Admin: 04/01/17 21:25 Dose: 20 mg Saliva Substitute (First Magic Mouthwash) 5 ml PO Q4H [facility] Last Admin: 04/02/17 08:41 Dose: Not Given Senna/Docusate Sodium (Senokot S 50 Mg-8.6 Mg) 1 tab PO HS PRN PRN Reason: Constipation Last Admin: 03/28/17 10:05 Dose: 1 tab Sertraline HCl (Zoloft) 50 mg PO DAILY [facility] Last Admin: 04/01/17 09:23 Dose: 50 mg Vitamin A (Vitamin A & D Oint Ud Foilpak) 0.5 ea TOP Q4 PRN PRN Reason: Dry mouth - Labs Labs: 04/02/17 07:25 04/02/17 07:25 - Additional Findings Additional findings: - Constitutional Appears: Well, No Acute Distress - Head Exam Head Exam: ATRAUMATIC, NORMAL INSPECTION, NORMOCEPHALIC - Eye Exam Eye Exam: EOMI, Normal appearance, PERRL Pupil Exam: NORMAL ACCOMODATION, PERRL - ENT Exam ENT Exam: Mucous Membranes Dry. absent: Normal Oropharynx (ulcerated lesions in the back of the hard palate. ) - Respiratory Exam Respiratory Exam: Clear to Ausculation Bilateral, NORMAL BREATHING PATTERN. absent: Decreased Breath Sounds, Rales, Rhonchi, Wheezes, Respiratory Distress, Stridor - Cardiovascular Exam Cardiovascular Exam: REGULAR RHYTHM, RRR, +S1, +S2 - GI/Abdominal Exam GI & Abdominal Exam: Soft, Normal Bowel Sounds. absent: Tenderness Additional comments: large abdomen due large body habitus - Extremities Exam Extremities Exam: absent: Pedal Edema, Tenderness - Neurological Exam Neurological Exam: Alert, Awake, Oriented x3 - Psychiatric Exam Psychiatric exam: Normal Affect - Skin Skin Exam: Warm Additional comments: -Noted subcutaneous hematomas on the left side of abdomen and on the right forearm Assessment and Plan - Assessment and Plan (Free Text) Assessment: Dyspnea- Secondary to COPD v. CHF v. Lung CA v. Pneumonia 04/01-04/02: Patient was alert and oriented, Improvement of thrombocytopenia 03/29:CXR shows minimal change interval from previous study; chronic changes in LML and LLL. He continues to complain of mild SOB but states that he does feel an improvement in his symptoms. He has only been using nasal cannula and refused BIPAP last night. He states the he is fine with just the nasal cannula and does not want the BIPAP. Sepsis secondary to UTI 04/02: Continue Meropenem 500mg (started on 03/31)( Patient was started on Primaxin on 03/24 and was discontinued 03/31 Currently afebrile, no leukocytosis Price was inserted on 03/22 - Price was discontinued 04/01 Urine culture from 03/22- Proteus Mirabilis Blood culture from 03/21- Proteus Mirabilis Repeat blood culture 03/29: No growth (preliminary) Thrombocytopenia Likely secondary to sepsis or HIV Hold off Lovenox Platelet count has improved to [address] Connell do not transfuse platelets unless <20 Continue to monitor Mouth Sores Magic Mouthwash Q4H Hypokalemia Stable Monitor daily, supplement as needed Microcytic Anemia- chronic disease v. iron deficiency 04/02: Per Dr. Connell, consider GI eval once acute illness resolves Hgb is stable- 8.2 today Feosol 325mg PO daily Continue to monitor Obstructive Sleep Apnea BiPAP ordered for night time use- patient should go to longterm with BIPAP at night He has been non-compliant with BiPAP History of COPD Well controlled with O2 nasal cannula Singulair 10mg PO daily History of HIV 04/02: ID Consulted, Dr La, f/u recs - T CELLS AND VIRAL LOAD ORDERED Truvada 1 tab PO daily (home med) Isentress 400mg PO BID (home med) HTN BP stable/low, continue to monitor. BP meds held due to hypotension Previous Echo done on 02/26/17- EF 62% (see full report) HLD 04/02: Stopped Crestor 20mg PO HS 2/2 elevated LFTs Transaminitis 04/02: AST 101 / ALT 80 / Alk Phos 248 - held Crestor Psychiatric history- questionable Schizophrenia Fluphenazine 5mg PO BID Benztropine Mesylate 1mg PO BID Zoloft 50mg PO daily Discontinued Atarax and Trazodone due to lethargy Constipation Senna/Docusate Sodium 1 tab PO HS PRN Constipaton Transient hyperglycemia likely secondary to steroid administration ISS Continue to monitor No documented history of DM Accuchecks A1c 6.2 Prophylaxis Pepcid 20mg PO daily SCDs VTE prophylaxis due to thrombocytopenia PT Eval and Treat Upon discharge patient will need BiPAP at night.
[2017-04-02] MEDS: Potassium Chloride 20 mEq ER Tab PO SCH (09:38)
[2017-04-02] MEDS: Emtricitabine-Tenofovir 200 mg-300 mg Tab PO SCH (09:38)
[2017-04-02] MEDS: Multiple Vitamins Tab PO SCH (09:38)
--- NOTE | 2017-04-02 12:50 | CP.PCM.PN ---
Subjective - Date & Time of Evaluation Date of Evaluation: 04/02/17 Time of Evaluation: 09:00 - Subjective Subjective: HAART RX REVIEWED ON TRUVADA/ ISENTRESS T CELLS AND VIRAL LOAD ORDERED Objective - Vital Signs/Intake and Output Vital Signs (last 24 hours): Temp Pulse Resp BP Pulse Ox 97.4 F L 97 H 20 98/65 L 97 04/02/17 08:43 04/02/17 08:43 04/02/17 08:43 04/02/17 08:43 04/02/17 08:43 Intake and Output: 04/02/17 04/02/17 06:59 18:59 Intake Total 400 Output Total 1 Balance 399 - Medications Medications: Current Medications Acetaminophen (Tylenol 325mg Tab) 650 mg PO Q6H PRN PRN Reason: Fever >100.4 F Last Admin: 03/22/17 10:15 Dose: 650 mg Benztropine Mesylate (Cogentin) 1 mg PO BID [facility] Last Admin: 04/02/17 09:37 Dose: Not Given Emtricitabine/Tenofovir (Truvada 200 Mg-300 Mg) 1 tab PO DAILY [facility] Last Admin: 04/02/17 09:38 Dose: Not Given Famotidine (Pepcid) 20 mg PO DAILY [facility] Last Admin: 04/02/17 09:38 Dose: Not Given Ferrous Sulfate (Feosol) 325 mg PO DAILY [facility] Last Admin: 04/02/17 09:37 Dose: Not Given Fluphenazine HCl (Prolixin) 5 mg PO BID [facility] Last Admin: 04/02/17 09:38 Dose: Not Given Meropenem 500 mg/ Sodium (Chloride) 100 mls @ 100 mls/hr IVPB Q8 [facility] Last Admin: 04/02/17 06:32 Dose: 100 mls/hr Insulin Aspart (Novolog) 0 unit SC ACHS [facility] PRN Reason: Protocol Last Admin: 04/02/17 12:43 Dose: Not Given Montelukast Sodium (Singulair) 10 mg PO HS [facility] Last Admin: 04/01/17 21:53 Dose: 10 mg Multivitamins (Hexavitamin) 1 tab PO DAILY [facility] Last Admin: 04/02/17 09:38 Dose: Not Given Potassium Chloride (K-Dur 20 Meq Er Tab) 20 meq PO DAILY [facility] Last Admin: 08/29/17 09:38 Dose: Not Given Raltegravir (Isentress) 400 mg PO BID [facility] Last Admin: 04/02/17 09:38 Dose: Not Given Rosuvastatin Calcium (Crestor) 20 mg PO HS [facility] Last Admin: 04/01/17 21:25 Dose: 20 mg Saliva Substitute (First Magic Mouthwash) 5 ml PO Q4H [facility] Last Admin: 04/02/17 08:41 Dose: Not Given Senna/Docusate Sodium (Senokot S 50 Mg-8.6 Mg) 1 tab PO HS PRN PRN Reason: Constipation Last Admin: 03/28/17 10:05 Dose: 1 tab Sertraline HCl (Zoloft) 50 mg PO DAILY [facility] Last Admin: 04/02/17 09:38 Dose: Not Given Vitamin A (Vitamin A & D Oint Ud Foilpak) 0.5 ea TOP Q4 PRN PRN Reason: Dry mouth - Labs Labs: 04/02/17 07:25 04/02/17 07:25 - Constitutional Appears: Chronically Ill - Head Exam Head Exam: NORMOCEPHALIC - Eye Exam Eye Exam: absent: Scleral icterus - ENT Exam ENT Exam: Mucous Membranes Dry - Neck Exam Neck Exam: absent: Lymphadenopathy - Respiratory Exam Respiratory Exam: Decreased Breath Sounds Assessment and Plan (1) Anemia Status: Acute (2) CHF (congestive heart failure) Status: Acute (3) COPD (chronic obstructive pulmonary disease) Status: Acute (4) Change in mental status Status: Acute (5) Hypokalemia Status: Acute (6) Sepsis Status: Acute (7) Chest pain Status: Acute
--- NOTE | 2017-04-02 19:42 | CP.PCM.PN ---
Subjective - Date & Time of Evaluation Date of Evaluation: 04/02/17 Time of Evaluation: 16:05 - Subjective Subjective: No complaints, mental status improved plt trending up Objective - Vital Signs/Intake and Output Vital Signs (last 24 hours): Temp Pulse Resp BP Pulse Ox 97.9 F 74 20 112/67 100 04/02/17 16:00 04/02/17 16:00 04/02/17 16:00 04/02/17 16:00 04/02/17 16:00 - Medications Medications: Current Medications Acetaminophen (Tylenol 325mg Tab) 650 mg PO Q6H PRN PRN Reason: Fever >100.4 F Last Admin: 03/22/17 10:15 Dose: 650 mg Benztropine Mesylate (Cogentin) 1 mg PO BID [facility] Last Admin: 04/02/17 17:54 Dose: 1 mg Emtricitabine/Tenofovir (Truvada 200 Mg-300 Mg) 1 tab PO DAILY [facility] Last Admin: 04/02/17 09:38 Dose: Not Given Famotidine (Pepcid) 20 mg PO DAILY [facility] Last Admin: 04/02/17 09:38 Dose: Not Given Ferrous Sulfate (Feosol) 325 mg PO DAILY [facility] Last Admin: 04/02/17 09:37 Dose: Not Given Fluphenazine HCl (Prolixin) 5 mg PO BID [facility] Last Admin: 04/02/17 17:50 Dose: 5 mg Meropenem 500 mg/ Sodium (Chloride) 100 mls @ 100 mls/hr IVPB Q8 [facility] Last Admin: 04/02/17 14:11 Dose: 100 mls/hr Insulin Aspart (Novolog) 0 unit SC ACHS [facility] PRN Reason: Protocol Last Admin: 04/02/17 16:30 Dose: Not Given Montelukast Sodium (Singulair) 10 mg PO HS [facility] Last Admin: 04/01/17 21:53 Dose: 10 mg Multivitamins (Hexavitamin) 1 tab PO DAILY [facility] Last Admin: 04/02/17 09:38 Dose: Not Given Potassium Chloride (K-Dur 20 Meq Er Tab) 20 meq PO DAILY [facility] Last Admin: 04/02/17 09:38 Dose: Not Given Raltegravir (Isentress) 400 mg PO BID [facility] Last Admin: 04/02/17 17:50 Dose: 400 mg Saliva Substitute (First Magic Mouthwash) 5 ml PO Q4H [facility] Last Admin: 04/02/17 17:55 Dose: 5 ml Senna/Docusate Sodium (Senokot S 50 Mg-8.6 Mg) 1 tab PO HS PRN PRN Reason: Constipation Last Admin: 03/28/17 10:05 Dose: 1 tab Sertraline HCl (Zoloft) 50 mg PO DAILY [facility] Last Admin: 04/02/17 09:38 Dose: Not Given Vitamin A (Vitamin A & D Oint Ud Foilpak) 0.5 ea TOP Q4 PRN PRN Reason: Dry mouth - Labs Labs: 04/02/17 07:25 04/02/17 07:25 - Head Exam Head Exam: ATRAUMATIC - Eye Exam Eye Exam: Normal appearance - ENT Exam ENT Exam: Mucous Membranes Dry - Respiratory Exam Respiratory Exam: Decreased Breath Sounds - Cardiovascular Exam Cardiovascular Exam: +S1, +S2 - GI/Abdominal Exam GI & Abdominal Exam: Normal Bowel Sounds - Extremities Exam Extremities Exam: Pedal Edema Assessment and Plan (1) Thrombocytopenia Assessment & Plan: HIV, hepatitis, infection plt count improving Status: Acute (2) Anemia Assessment & Plan: iron deficiency IV iron when infection improved GI w/u once acute illness resolves Status: Acute
[2017-04-03] MEDS: Mag&Al/Simet/Diphen/Lido 237 ML KIT PO SCH ×6 (00:30→21:13)
[2017-04-03] MEDS: Meropenem 500 MG in Sodium Chloride 0.9% 100 ML IVPB SCH ×3 (06:00→21:12)
[2017-04-03 06:45] LABS: BASO % 0.6 % (0.0-2.0); EOS % 1.3 % (0.0-4.0); HEMATOCRIT 27.8 % (35.0-51.0); LYMPH # 0.2 K/uL (1.0-4.3); LYMPH % 8.2 % (20.0-40.0); MEAN CELL VOLUME 72.5 fL (80.0-94.0); MEAN CORPUSCULAR HEMOGLOBIN 21.7 pg (27.0-31.0); MEAN CORPUSCULAR HGB CONC 29.9 g/dL (33.0-37.0); MEAN PLATELET VOLUME 8.8 fL (7.2-11.7); MONO # 0.2 K/uL (0.0-0.8); MONO % 5.6 % (0.0-10.0); PLATELET COUNT 31 K/uL (130-400); RED CELL DISTRIBUTION WIDTH 30.6 % (11.5-14.5)
[2017-04-03 06:55] LABS: ALB/GLOB RATIO 0.6 (1.0-2.1); ALKALINE PHOSPHATASE 274 U/L (38-126); ALT/SGPT 91 U/L (21-72); AST/SGOT 107 U/L (17-59); BILIRUBIN,TOTAL 0.5 mg/dL (0.2-1.3); BLOOD UREA NITROGEN 20 mg/dL (9-20); CALCIUM 6.7 mg/dl (8.6-10.4); CARBON DIOXIDE 37 mmol/L (22-30); CHLORIDE 97 mmol/L (98-107); GFR AFRICAN-AMERICAN > 60; GLUCOSE,RANDOM 80 mg/dL (75-110); MAGNESIUM 1.6 mg/dL (1.6-2.3); PHOSPHOROUS 2.3 mg/dL (2.5-4.5); POTASSIUM 3.3 mmol/L (3.6-5.2); SODIUM 137 mmol/L (132-148); TOTAL PROTEIN 4.7 g/dL (6.3-8.3)
[2017-04-03 08:41] LABS: EOSINOPHIL 1 % (0-4); NEUTROPHIL 87 % (50-75); TOTAL CELLS COUNTED 100
[2017-04-03] MEDS: Potassium Chloride 20 mEq ER Tab PO ONE ×2 (10:04→10:05)
[2017-04-03] MEDS: Multiple Vitamins Tab PO SCH (10:04)
[2017-04-03] MEDS: (Novolog) Insulin Aspart, Recombinant 100 u/ml 10 ml vial SC SCH ×4 (10:06→21:18)
[2017-04-03] MEDS: Emtricitabine-Tenofovir 200 mg-300 mg Tab PO SCH (10:10)
[2017-04-03] MEDS: Docusate-Senna 50 mg-8.6 mg Tab PO PRN (10:11)
[2017-04-03] MEDS: Potassium Chloride 20 mEq ER Tab PO SCH (11:18)
--- NOTE | 2017-04-03 13:28 | CP.PCM.PN ---
Subjective - Date & Time of Evaluation Date of Evaluation: 04/03/17 Time of Evaluation: 09:10 - Subjective Subjective: Medicine progress note for Dr. Stanley Patient seen and examined. Patient arouseable but appears drowsy. Patient states he does not have much appetite today and has not been eating. Patient denies other complaints. Objective - Vital Signs/Intake and Output Vital Signs (last 24 hours): Temp Pulse Resp BP Pulse Ox 97.6 F 73 18 119/65 100 04/03/17 07:40 04/03/17 07:40 04/03/17 07:40 04/03/17 07:40 04/03/17 07:40 Intake and Output: 04/03/17 04/03/17 06:59 18:59 Intake Total 400 Balance 400 - Medications Medications: Current Medications Acetaminophen (Tylenol 325mg Tab) 650 mg PO Q6H PRN PRN Reason: Fever >100.4 F Last Admin: 03/22/17 10:15 Dose: 650 mg Benztropine Mesylate (Cogentin) 1 mg PO BID [facility] Last Admin: 04/03/17 10:11 Dose: 1 mg Emtricitabine/Tenofovir (Truvada 200 Mg-300 Mg) 1 tab PO DAILY [facility] Last Admin: 04/03/17 10:10 Dose: 1 tab Famotidine (Pepcid) 20 mg PO DAILY [facility] Last Admin: 04/03/17 10:04 Dose: 20 mg Ferrous Sulfate (Feosol) 325 mg PO DAILY [facility] Last Admin: 04/03/17 12:24 Dose: 325 mg Fluphenazine HCl (Prolixin) 5 mg PO BID [facility] Last Admin: 04/03/17 10:11 Dose: 5 mg Meropenem 500 mg/ Sodium (Chloride) 100 mls @ 100 mls/hr IVPB Q8 [facility] Last Admin: 04/03/17 06:00 Dose: 100 mls/hr Insulin Aspart (Novolog) 0 unit SC ACHS [facility] PRN Reason: Protocol Last Admin: 04/03/17 12:18 Dose: Not Given Montelukast Sodium (Singulair) 10 mg PO HS [facility] Last Admin: 04/02/17 21:32 Dose: 10 mg Multivitamins (Hexavitamin) 1 tab PO DAILY [facility] Last Admin: 04/03/17 10:04 Dose: 1 tab Potassium Chloride (K-Dur 20 Meq Er Tab) 20 meq PO DAILY [facility] Last Admin: 04/03/17 11:18 Dose: 20 meq Raltegravir (Isentress) 400 mg PO BID [facility] Last Admin: 04/03/17 10:10 Dose: 400 mg Saliva Substitute (First Magic Mouthwash) 5 ml PO Q4H [facility] Last Admin: 04/03/17 12:25 Dose: 5 ml Senna/Docusate Sodium (Senokot S 50 Mg-8.6 Mg) 1 tab PO HS PRN PRN Reason: Constipation Last Admin: 04/03/17 10:11 Dose: 1 tab Sertraline HCl (Zoloft) 50 mg PO DAILY [facility] Last Admin: 04/03/17 10:04 Dose: 50 mg Vitamin A (Vitamin A & D Oint Ud Foilpak) 0.5 ea TOP Q4 PRN PRN Reason: Dry mouth - Labs Labs: 04/03/17 06:30 04/03/17 06:30 - Constitutional Appears: Non-toxic, No Acute Distress - Head Exam Head Exam: ATRAUMATIC, NORMOCEPHALIC - Eye Exam Eye Exam: EOMI - ENT Exam ENT Exam: Mucous Membranes Dry - Respiratory Exam Respiratory Exam: Decreased Breath Sounds, NORMAL BREATHING PATTERN. absent: Respiratory Distress Additional comments: right chest port - Cardiovascular Exam Cardiovascular Exam: +S1, +S2 - GI/Abdominal Exam GI & Abdominal Exam: Soft, Normal Bowel Sounds. absent: Tenderness - Extremities Exam Additional comments: non-pitting lower extremity edema - Neurological Exam Neurological Exam: Alert, Awake - Skin Skin Exam: Warm Additional comments: ecchymosis on the left side of abdomen and on the right forearm Assessment and Plan - Assessment and Plan (Free Text) Assessment: Dyspnea- Secondary to COPD v. CHF v. Lung CA v. Pneumonia 04/03: patient drowsy but arouseable 04/01-04/02: Patient was alert and oriented, Improvement of thrombocytopenia 03/29:CXR shows minimal change interval from previous study; chronic changes in LML and LLL. He continues to complain of mild SOB but states that he does feel an improvement in his symptoms. He has only been using nasal cannula and refused BIPAP last night. He states the he is fine with just the nasal cannula and does not want the BIPAP. Sepsis secondary to UTI 04/03: Continue Meropenem 500mg (started on 03/31) Patient was started on Primaxin on 03/24 and was discontinued 03/31 Currently afebrile, no leukocytosis Price was inserted on 03/22 - Price was discontinued 04/01 Urine culture from 03/22- Proteus Mirabilis Blood culture from 03/21- Proteus Mirabilis Repeat blood culture 03/29: No growth after 5 days Thrombocytopenia improving Likely secondary to sepsis or HIV Hold off Lovenox Platelet count has improved to [address] Connell do not transfuse platelets unless <20 Continue to monitor Mouth Sores Magic Mouthwash Q4H Hypokalemia Stable Monitor daily, supplement as needed Microcytic Anemia- chronic disease v. iron deficiency 04/03: Per Dr. Connell, consider GI eval once acute illness resolves Hgb is stable- 8.3 today Feosol 325mg PO daily Continue to monitor Obstructive Sleep Apnea BiPAP ordered for night time use- patient should go to intermediate with BIPAP at night He has been non-compliant with BiPAP History of COPD Well controlled with O2 nasal cannula Singulair 10mg PO daily History of HIV 04/03: viral load and T cell count pending 04/02: ID Consulted, Dr La, f/u recs - T CELLS AND VIRAL LOAD ORDERED Truvada 1 tab PO daily (home med) Isentress 400mg PO BID (home med) HTN BP stable/low, continue to monitor. BP meds held due to hypotension Previous Echo done on 02/26/17- EF 62% (see full report) HLD 04/03: Stopped Crestor 20mg PO HS 2/2 elevated LFTs Transaminitis 04/03: AST 107 / ALT 91 / Alk Phos 274 - held Crestor Psychiatric history- questionable Schizophrenia Fluphenazine 5mg PO BID Benztropine Mesylate 1mg PO BID Zoloft 50mg PO daily Discontinued Atarax and Trazodone due to lethargy Constipation Senna/Docusate Sodium 1 tab PO HS PRN Constipaton Transient hyperglycemia likely secondary to steroid administration ISS Continue to monitor No documented history of DM Accuchecks A1c 6.2 Prophylaxis Pepcid 20mg PO daily SCDs chemical VTE prophylaxis due to thrombocytopenia PT Eval and Treat Upon discharge patient will need BiPAP at night. All medical management as per Dr. Stanley
[2017-04-04] MEDS: Mag&Al/Simet/Diphen/Lido 237 ML KIT PO SCH ×6 (00:25→20:46)
[2017-04-04] MEDS: Meropenem 500 MG in Sodium Chloride 0.9% 100 ML IVPB SCH ×3 (05:40→21:00)
[2017-04-04] MEDS: (Novolog) Insulin Aspart, Recombinant 100 u/ml 10 ml vial SC SCH ×4 (07:30→22:00)
[2017-04-04 07:59] LABS: EOS # 0.1 K/uL (0.0-0.7); LYMPH # 0.2 K/uL (1.0-4.3); MEAN PLATELET VOLUME 8.6 fL (7.2-11.7); MONO # 0.1 K/uL (0.0-0.8); WHITE BLOOD COUNT 3.4 K/uL (4.8-10.8)
[2017-04-04 08:07] LABS: EOS % 2.1 % (0.0-4.0); LYMPH % 6.7 % (20.0-40.0); MEAN CORPUSCULAR HGB CONC 29.5 g/dL (33.0-37.0); MONO % 3.9 % (0.0-10.0); NRBC % 0.5 % (0.0-2.0); PLATELET COUNT 45 K/uL (130-400); RED CELL DISTRIBUTION WIDTH 30.7 % (11.5-14.5)
[2017-04-04 08:11] LABS: CHLORIDE 96 mmol/L (98-107); POTASSIUM 3.3 mmol/L (3.6-5.2); SODIUM 137 mmol/L (132-148)
[2017-04-04 08:13] LABS: ALB/GLOB RATIO 0.6 (1.0-2.1); ALKALINE PHOSPHATASE 284 U/L (38-126); ALT/SGPT 86 U/L (21-72); AST/SGOT 87 U/L (17-59); BILIRUBIN,TOTAL 0.7 mg/dL (0.2-1.3); BLOOD UREA NITROGEN 17 mg/dL (9-20); CARBON DIOXIDE 35 mmol/L (22-30); GFR AFRICAN-AMERICAN > 60; TOTAL PROTEIN 4.9 g/dL (6.3-8.3)
[2017-04-04 08:14] LABS: CALCIUM 6.3 mg/dl (8.6-10.4); GLUCOSE,RANDOM 80 mg/dL (75-110); HEMATOCRIT 27.1 % (35.0-51.0); MAGNESIUM 1.5 mg/dL (1.6-2.3); PHOSPHOROUS 1.9 mg/dL (2.5-4.5)
[2017-04-04 08:15] LABS: MEAN CELL VOLUME 72.2 fL (80.0-94.0); MEAN CORPUSCULAR HEMOGLOBIN 21.6 pg (27.0-31.0)
[2017-04-04 09:07] LABS: EOSINOPHIL 1 % (0-4); NEUTROPHIL 88 % (50-75); TOTAL CELLS COUNTED 50
[2017-04-04] MEDS ORDERED: Potassium Chloride 20 mEq ER Tab PO ONE (10:00)
[2017-04-04] MEDS: Magnesium Sulfate 1 gm in D5W 1 GM/100 ML BAG IVPB SCH ×2 (10:54→10:55)
[2017-04-04] MEDS: Potassium Chloride 20 mEq ER Tab PO SCH (11:00)
[2017-04-04] MEDS: Multiple Vitamins Tab PO SCH (11:00)
[2017-04-04] MEDS: Emtricitabine-Tenofovir 200 mg-300 mg Tab PO SCH (11:01)
--- NOTE | 2017-04-04 11:23 | CP.PCM.PN ---
Subjective - Date & Time of Evaluation Date of Evaluation: 04/04/17 Time of Evaluation: 07:40 - Subjective Subjective: Medicine progress note for Dr. Stanley: Patient seen and examined. Patient more conversant today. Patient states he has pain in his back from being in one position too long. Patient states he has improved appetite today and frequently has days where he does not like to eat much. Patient admits to no BM for two days but states he does not want laxative or stool softener. Objective - Vital Signs/Intake and Output Vital Signs (last 24 hours): Temp Pulse Resp BP Pulse Ox 98.7 F 81 20 98/65 L 98 04/04/17 08:00 04/04/17 08:00 04/04/17 08:00 04/04/17 08:00 04/04/17 08:00 Intake and Output: 04/04/17 04/04/17 06:59 18:59 Intake Total 650 Balance 650 - Medications Medications: Current Medications Acetaminophen (Tylenol 325mg Tab) 650 mg PO Q6H PRN PRN Reason: Fever >100.4 F Last Admin: 03/22/17 10:15 Dose: 650 mg Benztropine Mesylate (Cogentin) 1 mg PO BID [facility] Last Admin: 04/04/17 11:01 Dose: 1 mg Emtricitabine/Tenofovir (Truvada 200 Mg-300 Mg) 1 tab PO DAILY [facility] Last Admin: 04/04/17 11:01 Dose: 1 tab Famotidine (Pepcid) 20 mg PO DAILY [facility] Last Admin: 04/04/17 10:59 Dose: 20 mg Ferrous Sulfate (Feosol) 325 mg PO DAILY [facility] Last Admin: 04/04/17 11:00 Dose: 325 mg Fluphenazine HCl (Prolixin) 5 mg PO BID [facility] Last Admin: 04/04/17 11:00 Dose: 5 mg Meropenem 500 mg/ Sodium (Chloride) 100 mls @ 100 mls/hr IVPB Q8 [facility] Last Admin: 04/04/17 05:40 Dose: 100 mls/hr Insulin Aspart (Novolog) 0 unit SC ACHS [facility] PRN Reason: Protocol Last Admin: 04/04/17 07:30 Dose: Not Given Montelukast Sodium (Singulair) 10 mg PO HS [facility] Last Admin: 04/03/17 21:11 Dose: 10 mg Multivitamins (Hexavitamin) 1 tab PO DAILY [facility] Last Admin: 04/04/17 11:00 Dose: 1 tab Potassium Chloride (K-Dur 20 Meq Er Tab) 20 meq PO DAILY [facility] Last Admin: 04/04/17 11:00 Dose: Not Given Raltegravir (Isentress) 400 mg PO BID [facility] Last Admin: 04/04/17 11:01 Dose: 400 mg Saliva Substitute (First Magic Mouthwash) 5 ml PO Q4H [facility] Last Admin: 04/04/17 04:30 Dose: 5 ml Senna/Docusate Sodium (Senokot S 50 Mg-8.6 Mg) 1 tab PO HS PRN PRN Reason: Constipation Last Admin: 04/03/17 10:11 Dose: 1 tab Sertraline HCl (Zoloft) 50 mg PO DAILY [facility] Last Admin: 04/04/17 10:59 Dose: 50 mg Vitamin A (Vitamin A & D Oint Ud Foilpak) 0.5 ea TOP Q4 PRN PRN Reason: Dry mouth - Labs Labs: 04/04/17 07:35 04/04/17 07:35 - Constitutional Appears: No Acute Distress, Chronically Ill - Head Exam Head Exam: ATRAUMATIC, NORMOCEPHALIC - Eye Exam Eye Exam: EOMI - ENT Exam ENT Exam: Mucous Membranes Dry - Respiratory Exam Respiratory Exam: Decreased Breath Sounds, Rales (b/l bases). absent: Respiratory Distress Additional comments: right chest infusion port - Cardiovascular Exam Cardiovascular Exam: +S1, +S2 - GI/Abdominal Exam GI & Abdominal Exam: Soft, Normal Bowel Sounds. absent: Distended, Firm, Rigid , Tenderness - Extremities Exam Extremities Exam: absent: Calf Tenderness Additional comments: b/l lower extremity 2+ pitting edema heel protectors on b/l - Neurological Exam Neurological Exam: Alert, Awake - Psychiatric Exam Psychiatric exam: Normal Affect - Skin Skin Exam: Dry, Warm Assessment and Plan - Assessment and Plan (Free Text) Assessment: Dyspnea- Secondary to COPD v. CHF v. Lung CA v. Pneumonia 04/04: Patient awake, alert, conversant mycoplasma negative 03/29:CXR shows minimal change interval from previous study; chronic changes in LML and LLL. He continues to complain of mild SOB but states that he does feel an improvement in his symptoms. He has only been using nasal cannula and refused BIPAP last night. He states the he is fine with just the nasal cannula and does not want the BIPAP. Sepsis secondary to UTI 04/04: Continue Meropenem 500mg (started on 03/31), will F/U with ID regarding duration of treatment. bands decreasing. will repeat urine culture Patient was started on Primaxin on 03/24 and was discontinued 03/31 Currently afebrile, no leukocytosis Price was inserted on 03/22 - Price was discontinued 04/01 Urine culture from 03/22- Proteus Mirabilis Blood culture from 03/21- Proteus Mirabilis Repeat blood culture 03/29: No growth after 5 days Thrombocytopenia improving 04/04: platelets 45 Likely secondary to sepsis or HIV Hold off Lovenox Per Dr. Connell do not transfuse platelets unless <20 Continue to monitor Mouth Sores Magic Mouthwash Q4H Hypokalemia Stable Monitor daily, supplement as needed Microcytic Anemia- chronic disease v. iron deficiency 04/04: Hgb 8.1 04/02: Per Dr. Connell, consider GI eval once acute illness resolves Feosol 325mg PO daily Continue to monitor Obstructive Sleep Apnea BiPAP ordered for night time use- patient [facility] go to [facility] with [facility] at night He has been non-compliant with BiPAP History of COPD Well controlled with O2 nasal cannula Singulair 10mg PO daily History of HIV 04/04: viral load and T cell count pending 04/02: ID Consulted, Dr La, f/u recs - T CELLS AND VIRAL LOAD ORDERED Truvada 1 tab PO daily (home med) Isentress 400mg PO BID (home med) HTN BP stable/low, continue to monitor. BP meds held due to hypotension Previous Echo done on 02/26/17- EF 62% (see full report) HLD 04/03: Stopped Crestor 20mg PO HS 2/2 elevated LFTs Transaminitis 04/04: AST 87 / ALT 86 / Alk Phos 284 04/03: AST 107 / ALT 91 / Alk Phos 274 - held Crestor Psychiatric history- questionable Schizophrenia Fluphenazine 5mg PO BID Benztropine Mesylate 1mg PO BID Zoloft 50mg PO daily Discontinued Atarax and Trazodone due to lethargy Constipation Senna/Docusate Sodium 1 tab PO HS PRN Constipaton Transient hyperglycemia likely secondary to steroid administration ISS Continue to monitor No documented history of DM Accuchecks A1c 6.2 Prophylaxis Pepcid 20mg PO daily No chemical VTE prophylaxis due to thrombocytopenia PT Eval and Treat Disposition Upon discharge patient will need BiPAP at night. advance diet as tolerated All medical management as per Dr. Stanley
--- NOTE | 2017-04-04 17:25 | CP.PCM.PN ---
Subjective - Date & Time of Evaluation Date of Evaluation: 04/03/17 Time of Evaluation: 18:15 - Subjective Subjective: Appears comfortable Objective - Vital Signs/Intake and Output Vital Signs (last 24 hours): Temp Pulse Resp BP Pulse Ox 97.7 F 75 20 97/59 L 100 04/04/17 15:00 04/04/17 15:00 04/04/17 15:00 04/04/17 15:00 04/04/17 15:00 Intake and Output: 04/04/17 04/04/17 06:59 18:59 Intake Total 650 800 Balance 650 800 - Medications Medications: Current Medications Acetaminophen (Tylenol 325mg Tab) 650 mg PO Q6H PRN PRN Reason: Fever >100.4 F Last Admin: 03/22/17 10:15 Dose: 650 mg Benztropine Mesylate (Cogentin) 1 mg PO BID [facility] Last Admin: 04/04/17 11:01 Dose: 1 mg Emtricitabine/Tenofovir (Truvada 200 Mg-300 Mg) 1 tab PO DAILY [facility] Last Admin: 04/04/17 11:01 Dose: 1 tab Famotidine (Pepcid) 20 mg PO DAILY [facility] Last Admin: 04/04/17 10:59 Dose: 20 mg Ferrous Sulfate (Feosol) 325 mg PO DAILY [facility] Last Admin: 04/04/17 11:00 Dose: 325 mg Fluphenazine HCl (Prolixin) 5 mg PO BID [facility] Last Admin: 04/04/17 11:00 Dose: 5 mg Meropenem 500 mg/ Sodium (Chloride) 100 mls @ 100 mls/hr IVPB Q8 [facility] Last Admin: 04/04/17 13:43 Dose: 100 mls/hr Insulin Aspart (Novolog) 0 unit SC ACHS [facility] PRN Reason: Protocol Last Admin: 04/04/17 11:37 Dose: Not Given Montelukast Sodium (Singulair) 10 mg PO HS [facility] Last Admin: 04/03/17 21:11 Dose: 10 mg Multivitamins (Hexavitamin) 1 tab PO DAILY [facility] Last Admin: 04/04/17 11:00 Dose: 1 tab Potassium Chloride (K-Dur 20 Meq Er Tab) 20 meq PO DAILY [facility] Last Admin: 04/04/17 11:00 Dose: Not Given Raltegravir (Isentress) 400 mg PO BID [facility] Last Admin: 04/04/17 11:01 Dose: 400 mg Saliva Substitute (First Magic Mouthwash) 5 ml PO Q4H [facility] Last Admin: 04/04/17 11:37 Dose: 5 ml Senna/Docusate Sodium (Senokot S 50 Mg-8.6 Mg) 1 tab PO HS PRN PRN Reason: Constipation Last Admin: 04/03/17 10:11 Dose: 1 tab Sertraline HCl (Zoloft) 50 mg PO DAILY [facility] Last Admin: 04/04/17 10:59 Dose: 50 mg Vitamin A (Vitamin A & D Oint Ud Foilpak) 0.5 ea TOP Q4 PRN PRN Reason: Dry mouth - Labs Labs: 04/04/17 07:35 04/04/17 07:35 - Head Exam Head Exam: ATRAUMATIC - Eye Exam Eye Exam: Normal appearance - ENT Exam ENT Exam: Mucous Membranes Dry - Respiratory Exam Respiratory Exam: NORMAL BREATHING PATTERN - Cardiovascular Exam Cardiovascular Exam: +S1, +S2 - Extremities Exam Extremities Exam: Pedal Edema Assessment and Plan (1) Thrombocytopenia Assessment & Plan: secondary to sepsis and HIV improving Status: Acute (2) Anemia Assessment & Plan: iron deficiency and chronic disease IV iron when infection clears Status: Acute
--- NOTE | 2017-04-04 17:26 | CP.PCM.PN ---
Subjective - Date & Time of Evaluation Date of Evaluation: 04/04/17 Time of Evaluation: 16:00 - Subjective Subjective: Drowsy but arousable Objective - Vital Signs/Intake and Output Vital Signs (last 24 hours): Temp Pulse Resp BP Pulse Ox 97.7 F 75 20 97/59 L 100 04/04/17 15:00 04/04/17 15:00 04/04/17 15:00 04/04/17 15:00 04/04/17 15:00 Intake and Output: 04/04/17 04/04/17 06:59 18:59 Intake Total 650 800 Balance 650 800 - Medications Medications: Current Medications Acetaminophen (Tylenol 325mg Tab) 650 mg PO Q6H PRN PRN Reason: Fever >100.4 F Last Admin: 03/22/17 10:15 Dose: 650 mg Benztropine Mesylate (Cogentin) 1 mg PO BID [facility] Last Admin: 04/04/17 11:01 Dose: 1 mg Emtricitabine/Tenofovir (Truvada 200 Mg-300 Mg) 1 tab PO DAILY [facility] Last Admin: 04/04/17 11:01 Dose: 1 tab Famotidine (Pepcid) 20 mg PO DAILY [facility] Last Admin: 04/04/17 10:59 Dose: 20 mg Ferrous Sulfate (Feosol) 325 mg PO DAILY [facility] Last Admin: 04/04/17 11:00 Dose: 325 mg Fluphenazine HCl (Prolixin) 5 mg PO BID [facility] Last Admin: 04/04/17 11:00 Dose: 5 mg Meropenem 500 mg/ Sodium (Chloride) 100 mls @ 100 mls/hr IVPB Q8 [facility] Last Admin: 04/04/17 13:43 Dose: 100 mls/hr Insulin Aspart (Novolog) 0 unit SC ACHS [facility] PRN Reason: Protocol Last Admin: 04/04/17 11:37 Dose: Not Given Montelukast Sodium (Singulair) 10 mg PO HS [facility] Last Admin: 04/03/17 21:11 Dose: 10 mg Multivitamins (Hexavitamin) 1 tab PO DAILY [facility] Last Admin: 04/04/17 11:00 Dose: 1 tab Potassium Chloride (K-Dur 20 Meq Er Tab) 20 meq PO DAILY [facility] Last Admin: 04/04/17 11:00 Dose: Not Given Raltegravir (Isentress) 400 mg PO BID [facility] Last Admin: 04/04/17 11:01 Dose: 400 mg Saliva Substitute (First Magic Mouthwash) 5 ml PO Q4H [facility] Last Admin: 04/04/17 11:37 Dose: 5 ml Senna/Docusate Sodium (Senokot S 50 Mg-8.6 Mg) 1 tab PO HS PRN PRN Reason: Constipation Last Admin: 04/03/17 10:11 Dose: 1 tab Sertraline HCl (Zoloft) 50 mg PO DAILY [facility] Last Admin: 04/04/17 10:59 Dose: 50 mg Vitamin A (Vitamin A & D Oint Ud Foilpak) 0.5 ea TOP Q4 PRN PRN Reason: Dry mouth - Labs Labs: 04/04/17 07:35 04/04/17 07:35 - Head Exam Head Exam: ATRAUMATIC - Eye Exam Eye Exam: Normal appearance - ENT Exam ENT Exam: Mucous Membranes Dry - Respiratory Exam Respiratory Exam: NORMAL BREATHING PATTERN - Cardiovascular Exam Cardiovascular Exam: +S1, +S2 - GI/Abdominal Exam GI & Abdominal Exam: Normal Bowel Sounds - Extremities Exam Extremities Exam: Pedal Edema Assessment and Plan (1) Thrombocytopenia Assessment & Plan: improving secondary to sepsis and HIV Status: Acute (2) Anemia Assessment & Plan: iron deficiency and chronic disease Status: Acute
[2017-04-05] MEDS: Mag&Al/Simet/Diphen/Lido 237 ML KIT PO SCH ×6 (00:15→21:24)
[2017-04-05] MEDS: Meropenem 500 MG in Sodium Chloride 0.9% 100 ML IVPB SCH ×3 (05:19→21:00)
[2017-04-05 07:53] LABS: BASO % 1.1 % (0.0-2.0); EOS % 1.1 % (0.0-4.0); HEMATOCRIT 24.6 % (35.0-51.0); LYMPH # 0.3 K/uL (1.0-4.3); MEAN CELL VOLUME 72.4 fL (80.0-94.0); MEAN CORPUSCULAR HEMOGLOBIN 21.7 pg (27.0-31.0); MEAN CORPUSCULAR HGB CONC 29.9 g/dL (33.0-37.0); MEAN PLATELET VOLUME 8.7 fL (7.2-11.7); MONO # 0.1 K/uL (0.0-0.8); MONO % 4.4 % (0.0-10.0); PLATELET COUNT 38 K/uL (130-400); RED CELL DISTRIBUTION WIDTH 30.7 % (11.5-14.5); WHITE BLOOD COUNT 3.3 K/uL (4.8-10.8)
[2017-04-05] MEDS: (Novolog) Insulin Aspart, Recombinant 100 u/ml 10 ml vial SC SCH ×4 (08:11→21:23)
[2017-04-05 08:14] LABS: CHLORIDE 99 mmol/L (98-107)
[2017-04-05 08:15] LABS: POTASSIUM 3.2 mmol/L (3.6-5.2); SODIUM 139 mmol/L (132-148)
[2017-04-05 08:17] LABS: ALB/GLOB RATIO 0.6 (1.0-2.1); ALKALINE PHOSPHATASE 259 U/L (38-126); AST/SGOT 77 U/L (17-59); BILIRUBIN,TOTAL 0.5 mg/dL (0.2-1.3); BLOOD UREA NITROGEN 17 mg/dL (9-20); CARBON DIOXIDE 39 mmol/L (22-30); GFR AFRICAN-AMERICAN > 60; GLUCOSE,RANDOM 79 mg/dL (75-110); TOTAL PROTEIN 4.7 g/dL (6.3-8.3)
[2017-04-05 08:18] LABS: CALCIUM 6.3 mg/dl (8.6-10.4); MAGNESIUM 1.8 mg/dL (1.6-2.3); PHOSPHOROUS 1.8 mg/dL (2.5-4.5)
[2017-04-05 08:48] LABS: ALT/SGPT 76 U/L (21-72)
[2017-04-05 08:54] LABS: NEUTROPHIL 92 % (50-75); TOTAL CELLS COUNTED 100
[2017-04-05] MEDS ORDERED: Potassium Chloride 20 mEq/15 ml LIQ UD PO ONE (09:23)
[2017-04-05] MEDS ORDERED: Potassium Phosphate 3 mmol/ml Inj IV ONE (09:23)
[2017-04-05] MEDS: Emtricitabine-Tenofovir 200 mg-300 mg Tab PO SCH (09:36)
[2017-04-05] MEDS: Potassium Chloride 20 mEq ER Tab PO SCH (09:37)
[2017-04-05] MEDS: Multiple Vitamins Tab PO SCH (09:37)
[2017-04-05] MEDS ORDERED: Potassium Phosphate 15 MMOLE in Sodium Chloride 0.9% 250 ML IV ONE (10:00)
--- NOTE | 2017-04-05 13:02 | CP.PCM.PN ---
Subjective - Date & Time of Evaluation Date of Evaluation: 04/05/17 Time of Evaluation: 09:15 - Subjective Subjective: PGY 2 Medicine Note- Dr. Stanley's service Pt seen and examined in no acute distress. He states that he did not sleep well last night. He still sometimes feels occasionally short of breath. He states that he is not able to move about in bed as he would like. He denies chest pain , fevers, chills, palpitations or paresthesias at this time. Objective - Vital Signs/Intake and Output Vital Signs (last 24 hours): Temp Pulse Resp BP Pulse Ox 98.3 F 73 19 90/56 L 99 04/05/17 08:23 04/05/17 08:23 04/05/17 08:23 04/05/17 08:23 04/05/17 08:23 Intake and Output: 04/05/17 04/05/17 06:59 18:59 Intake Total 590 Balance 590 - Medications Medications: Current Medications Acetaminophen (Tylenol 325mg Tab) 650 mg PO Q6H PRN PRN Reason: Fever >100.4 F Last Admin: 03/22/17 10:15 Dose: 650 mg Benztropine Mesylate (Cogentin) 1 mg PO BID [facility] Last Admin: 04/05/17 09:37 Dose: 1 mg Emtricitabine/Tenofovir (Truvada 200 Mg-300 Mg) 1 tab PO DAILY [facility] Last Admin: 04/05/17 09:36 Dose: 1 tab Famotidine (Pepcid) 20 mg PO DAILY [facility] Last Admin: 04/05/17 09:36 Dose: 20 mg Ferrous Sulfate (Feosol) 325 mg PO DAILY [facility] Last Admin: 04/05/17 09:36 Dose: 325 mg Fluphenazine HCl (Prolixin) 5 mg PO BID [facility] Last Admin: 04/05/17 09:36 Dose: 5 mg Meropenem 500 mg/ Sodium (Chloride) 100 mls @ 100 mls/hr IVPB Q8 [facility] Last Admin: 04/05/17 05:19 Dose: 100 mls/hr Potassium Phosphate 15 mmole/ (Sodium Chloride) 255 mls @ 62 mls/hr IV ONCE ONE Stop: 04/05/17 14:06 Last Admin: 04/05/17 10:35 Dose: 62 mls/hr Insulin Aspart (Novolog) 0 unit SC ACHS [facility] PRN Reason: Protocol Last Admin: 04/05/17 11:49 Dose: Not Given Montelukast Sodium (Singulair) 10 mg PO HS [facility] Last Admin: 04/04/17 21:01 Dose: 10 mg Multivitamins (Hexavitamin) 1 tab PO DAILY [facility] Last Admin: 04/05/17 09:37 Dose: 1 tab Potassium Chloride (K-Dur 20 Meq Er Tab) 20 meq PO DAILY [facility] Last Admin: 04/05/17 09:37 Dose: 20 meq Raltegravir (Isentress) 400 mg PO BID [facility] Last Admin: 04/05/17 09:37 Dose: 400 mg Saliva Substitute (First Magic Mouthwash) 5 ml PO Q4H [facility] Last Admin: 04/05/17 12:29 Dose: Not Given Senna/Docusate Sodium (Senokot S 50 Mg-8.6 Mg) 1 tab PO HS PRN PRN Reason: Constipation Last Admin: 04/03/17 10:11 Dose: 1 tab Sertraline HCl (Zoloft) 50 mg PO DAILY [facility] Last Admin: 04/05/17 09:38 Dose: 50 mg Vitamin A (Vitamin A & D Oint Ud Foilpak) 0.5 ea TOP Q4 PRN PRN Reason: Dry mouth - Labs Labs: 04/05/17 07:40 04/05/17 07:40 - Constitutional Appears: Non-toxic, No Acute Distress - Head Exam Head Exam: ATRAUMATIC, NORMAL INSPECTION, NORMOCEPHALIC - Eye Exam Eye Exam: EOMI, Normal appearance, PERRL Pupil Exam: NORMAL ACCOMODATION - ENT Exam ENT Exam: Mucous Membranes Dry - Neck Exam Neck Exam: Full ROM - Respiratory Exam Respiratory Exam: NORMAL BREATHING PATTERN - Cardiovascular Exam Cardiovascular Exam: +S1, +S2 - GI/Abdominal Exam GI & Abdominal Exam: Soft - Extremities Exam Extremities Exam: Normal Capillary Refill, Pedal Edema - Back Exam Back Exam: absent: Full ROM - Neurological Exam Neurological Exam: Alert, Awake, Oriented x3 - Psychiatric Exam Psychiatric exam: Flat Affect - Skin Skin Exam: Dry, Intact, Pallor, Warm Additional comments: superficial hematomas noted on skin . Assessment and Plan - Assessment and Plan (Free Text) Assessment: Dyspnea- Secondary to COPD v. CHF v. Lung CA v. Pneumonia Dyspnea improved Patient would benefit from BiPAP however he prefers nasal canula at this time. Mycoplasma negative 03/29:CXR shows minimal change interval from previous study; chronic changes in LML and LLL. Sepsis secondary to UTI Continue Meropenem 500mg (started on 03/31), will F/U with ID regarding duration of treatment. bands decreasing. will repeat urine culture Started Florastor 04/05 Patient was started on Primaxin on 03/24 and was discontinued 03/31 Currently afebrile, WBC 3.3 Silverman was inserted on 03/22 - Silverman was discontinued 04/01. New Silverman on 04/05 in light of patient's incontinence. Repeat U/C ordered for 04/04 uncollected bc there was no silverman in place. Will f/u Urine culture from 03/22- Proteus Mirabilis Blood culture from 03/21- Proteus Mirabilis Repeat blood culture 03/29: No growth after 5 days Pancytopenia Hgb 7.4- Will transfuse 2 units PRBC Microcytic Anemia- chronic disease v. iron deficiency 04/04: Hgb 8.1 04/02: Per Dr. Connell, consider GI eval once acute illness resolves Feosol 325mg PO daily Likely secondary to sepsis or HIV Hold off Lovenox Per Dr. Connell do not transfuse platelets unless <20 Continue to monitor Mouth Sores Magic Mouthwash Q4H Electrolyte defiency Repleted Potassium and phosphate Monitor daily, supplement as needed Obstructive Sleep Apnea BiPAP ordered for night time use- patient should go to longterm with BIPAP at night He has been non-compliant with BiPAP History of COPD Controlled with O2 nasal cannula Singulair 10mg PO daily History of HIV 04/04: viral load and T cell count pending 04/02: ID Consulted, Dr La, f/u recs - T CELLS AND VIRAL LOAD ORDERED Truvada 1 tab PO daily (home med) Isentress 400mg PO BID (home med) HTN BP stable/low, continue to monitor. BP meds held due to hypotension Previous Echo done on 02/26/17- EF 62% (see full report) HLD 04/03: Stopped Crestor 20mg PO HS 2/2 elevated LFTs Transaminitis Stable Crestor held Cont to monitor Psychiatric history- questionable Schizophrenia Fluphenazine 5mg PO BID Benztropine Mesylate 1mg PO BID Zoloft 50mg PO daily Discontinued Atarax and Trazodone due to lethargy Constipation Senna/Docusate Sodium 1 tab PO HS PRN Constipation Encourage increased water intale Transient hyperglycemia likely secondary to steroid administration ISS Continue to monitor No documented history of DM Accuchecks A1c 6.2 Prophylaxis Pepcid 20mg PO daily No chemical VTE prophylaxis due to thrombocytopenia PT Eval and Treat Disposition Upon discharge patient will need BiPAP at night. Patient will benefit from additional counseling. Advance diet as tolerated All medical management as per Dr. Stanley
[2017-04-05] MEDS: Saccharomyces Boulardi 250 mg Cap PO SCH (17:42)
--- NOTE | 2017-04-05 18:40 | CP.PCM.PN ---
Subjective - Date & Time of Evaluation Date of Evaluation: 04/05/17 Time of Evaluation: 08:00 - Subjective Subjective: REMIANS WEAK / LETHARGIC IV RX IN PROGRESS T CELLS ARE 158 VL UNDETECTABLE CONT ARV RX Objective - Vital Signs/Intake and Output Vital Signs (last 24 hours): Temp Pulse Resp BP Pulse Ox 97.6 F 82 20 124/61 96 04/05/17 17:20 04/05/17 17:20 04/05/17 17:20 04/05/17 17:20 04/05/17 17:15 Intake and Output: 04/05/17 04/05/17 06:59 18:59 Intake Total 590 0 Balance 590 0 - Medications Medications: Current Medications Acetaminophen (Tylenol 325mg Tab) 650 mg PO Q6H PRN PRN Reason: Fever >100.4 F Last Admin: 03/22/17 10:15 Dose: 650 mg Benztropine Mesylate (Cogentin) 1 mg PO BID [facility] Last Admin: 04/05/17 17:43 Dose: 1 mg Emtricitabine/Tenofovir (Truvada 200 Mg-300 Mg) 1 tab PO DAILY [facility] Last Admin: 04/05/17 09:36 Dose: 1 tab Famotidine (Pepcid) 20 mg PO DAILY [facility] Last Admin: 04/05/17 09:36 Dose: 20 mg Ferrous Sulfate (Feosol) 325 mg PO DAILY [facility] Last Admin: 04/05/17 09:36 Dose: 325 mg Fluphenazine HCl (Prolixin) 5 mg PO BID [facility] Last Admin: 04/05/17 17:41 Dose: 5 mg Meropenem 500 mg/ Sodium (Chloride) 100 mls @ 100 mls/hr IVPB Q8 [facility] Last Admin: 04/05/17 13:49 Dose: 100 mls/hr Insulin Aspart (Novolog) 0 unit SC ACHS [facility] PRN Reason: Protocol Last Admin: 04/05/17 17:42 Dose: Not Given Montelukast Sodium (Singulair) 10 mg PO HS [facility] Last Admin: 04/04/17 21:01 Dose: 10 mg Multivitamins (Hexavitamin) 1 tab PO DAILY [facility] Last Admin: 04/05/17 09:37 Dose: 1 tab Potassium Chloride (K-Dur 20 Meq Er Tab) 20 meq PO DAILY [facility] Last Admin: 04/05/17 09:37 Dose: 20 meq Raltegravir (Isentress) 400 mg PO BID [facility] Last Admin: 04/05/17 17:41 Dose: 400 mg Saccharomyces Boulardii (Florastor) 250 mg PO BID [facility] Last Admin: 04/05/17 17:42 Dose: 250 mg Saliva Substitute (First Magic Mouthwash) 5 ml PO Q4H [facility] Last Admin: 04/05/17 17:43 Dose: Not Given Senna/Docusate Sodium (Senokot S 50 Mg-8.6 Mg) 1 tab PO HS PRN PRN Reason: Constipation Last Admin: 04/03/17 10:11 Dose: 1 tab Sertraline HCl (Zoloft) 50 mg PO DAILY [facility] Last Admin: 04/05/17 09:38 Dose: 50 mg Vitamin A (Vitamin A & D Oint Ud Foilpak) 0.5 ea TOP Q4 PRN PRN Reason: Dry mouth - Labs Labs: 04/05/17 07:40 04/05/17 07:40 - Constitutional Appears: Non-toxic, Chronically Ill - Head Exam Head Exam: NORMOCEPHALIC - Eye Exam Eye Exam: Conjunctival injection - ENT Exam ENT Exam: Mucous Membranes Dry - Neck Exam Neck Exam: absent: Lymphadenopathy - Respiratory Exam Respiratory Exam: Decreased Breath Sounds - Cardiovascular Exam Cardiovascular Exam: REGULAR RHYTHM - GI/Abdominal Exam GI & Abdominal Exam: Distended Assessment and Plan (1) Anemia Status: Acute (2) CHF (congestive heart failure) Status: Acute (3) COPD (chronic obstructive pulmonary disease) Status: Acute (4) Change in mental status Status: Acute (5) Hypokalemia Status: Acute (6) Sepsis Status: Acute (7) Chest pain Status: Acute
[2017-04-06] MEDS: Mag&Al/Simet/Diphen/Lido 237 ML KIT PO SCH ×8 (00:30→20:15)
[2017-04-06] MEDS: Meropenem 500 MG in Sodium Chloride 0.9% 100 ML IVPB SCH ×3 (05:30→21:14)
[2017-04-06 07:07] LABS: BASO % 0.4 % (0.0-2.0); EOS % 0.7 % (0.0-4.0); LYMPH # 0.3 K/uL (1.0-4.3); LYMPH % 5.4 % (20.0-40.0); MEAN CELL VOLUME 75.2 fL (80.0-94.0); MEAN CORPUSCULAR HEMOGLOBIN 24.1 pg (27.0-31.0); MEAN PLATELET VOLUME 8.6 fL (7.2-11.7); MONO # 0.2 K/uL (0.0-0.8); MONO % 2.9 % (0.0-10.0); PLATELET COUNT 42 K/uL (130-400); RED CELL DISTRIBUTION WIDTH 28.6 % (11.5-14.5); WHITE BLOOD COUNT 5.3 K/uL (4.8-10.8)
[2017-04-06 07:28] LABS: ALB/GLOB RATIO 0.6 (1.0-2.1); ALKALINE PHOSPHATASE 287 U/L (38-126); ALT/SGPT 82 U/L (21-72); AST/SGOT 71 U/L (17-59); BILIRUBIN,TOTAL 0.9 mg/dL (0.2-1.3); BLOOD UREA NITROGEN 19 mg/dL (9-20); CALCIUM 6.8 mg/dl (8.6-10.4); CARBON DIOXIDE 32 mmol/L (22-30); CHLORIDE 97 mmol/L (98-107); GFR AFRICAN-AMERICAN > 60; GLUCOSE,RANDOM 109 mg/dL (75-110); MAGNESIUM 1.8 mg/dL (1.6-2.3); PHOSPHOROUS 2.4 mg/dL (2.5-4.5); SODIUM 133 mmol/L (132-148); TOTAL PROTEIN 5.2 g/dL (6.3-8.3)
[2017-04-06] MEDS: (Novolog) Insulin Aspart, Recombinant 100 u/ml 10 ml vial SC SCH ×4 (07:51→21:15)
[2017-04-06] MEDS: Potassium Chloride 20 mEq ER Tab PO SCH (10:14)
[2017-04-06] MEDS: Saccharomyces Boulardi 250 mg Cap PO SCH ×2 (10:16→17:59)
[2017-04-06] MEDS: Multiple Vitamins Tab PO SCH (10:17)
[2017-04-06] MEDS: Emtricitabine-Tenofovir 200 mg-300 mg Tab PO SCH (10:18)
[2017-04-06 12:00] LABS: NEUTROPHIL 91 % (50-75); TOTAL CELLS COUNTED 100
[2017-04-06 12:06] LABS: SPHEROCYTES SLIGHT
--- NOTE | 2017-04-06 21:03 | CP.PCM.PN ---
Subjective - Date & Time of Evaluation Date of Evaluation: 04/05/17 Time of Evaluation: 13:00 - Subjective Subjective: Feels tired. Objective - Vital Signs/Intake and Output Vital Signs (last 24 hours): Temp Pulse Resp BP Pulse Ox 98.4 F 76 20 131/69 99 04/06/17 16:00 04/06/17 16:00 04/06/17 16:00 04/06/17 16:00 04/06/17 16:00 Intake and Output: 04/06/17 04/07/17 18:59 06:59 Intake Total 260 Balance 260 - Medications Medications: Current Medications Acetaminophen (Tylenol 325mg Tab) 650 mg PO Q6H PRN PRN Reason: Fever >100.4 F Last Admin: 03/22/17 10:15 Dose: 650 mg Benztropine Mesylate (Cogentin) 1 mg PO BID [facility] Last Admin: 04/06/17 17:59 Dose: 1 mg Emtricitabine/Tenofovir (Truvada 200 Mg-300 Mg) 1 tab PO DAILY [facility] Last Admin: 04/06/17 10:18 Dose: Not Given Famotidine (Pepcid) 20 mg PO DAILY [facility] Last Admin: 04/06/17 10:17 Dose: Not Given Ferrous Sulfate (Feosol) 325 mg PO DAILY [facility] Last Admin: 04/06/17 10:16 Dose: Not Given Fluphenazine HCl (Prolixin) 5 mg PO BID [facility] Last Admin: 04/06/17 17:59 Dose: 5 mg Meropenem 500 mg/ Sodium (Chloride) 100 mls @ 100 mls/hr IVPB Q8 [facility] Last Admin: 04/06/17 13:35 Dose: 100 mls/hr Insulin Aspart (Novolog) 0 unit SC ACHS [facility] PRN Reason: Protocol Last Admin: 04/06/17 16:30 Dose: Not Given Montelukast Sodium (Singulair) 10 mg PO HS [facility] Last Admin: 04/05/17 21:23 Dose: 10 mg Multivitamins (Hexavitamin) 1 tab PO DAILY [facility] Last Admin: 04/06/17 10:17 Dose: Not Given Potassium Chloride (K-Dur 20 Meq Er Tab) 20 meq PO DAILY [facility] Last Admin: 04/06/17 10:14 Dose: Not Given Raltegravir (Isentress) 400 mg PO BID [facility] Last Admin: 04/06/17 17:59 Dose: 400 mg Saccharomyces Boulardii (Florastor) 250 mg PO BID [facility] Last Admin: 04/06/17 17:59 Dose: 250 mg Saliva Substitute (First Magic Mouthwash) 5 ml PO Q4H [facility] Last Admin: 04/06/17 12:16 Dose: 5 ml Senna/Docusate Sodium (Senokot S 50 Mg-8.6 Mg) 1 tab PO HS PRN PRN Reason: Constipation Last Admin: 04/03/17 10:11 Dose: 1 tab Sertraline HCl (Zoloft) 50 mg PO DAILY [facility] Last Admin: 04/06/17 10:18 Dose: Not Given Vitamin A (Vitamin A & D Oint Ud Foilpak) 0.5 ea TOP Q4 PRN PRN Reason: Dry mouth - Labs Labs: 04/06/17 06:59 04/06/17 06:59 - Head Exam Head Exam: ATRAUMATIC - Eye Exam Eye Exam: Normal appearance - ENT Exam ENT Exam: Mucous Membranes Dry - Respiratory Exam Respiratory Exam: NORMAL BREATHING PATTERN - Cardiovascular Exam Cardiovascular Exam: +S1, +S2 - GI/Abdominal Exam GI & Abdominal Exam: Normal Bowel Sounds Assessment and Plan (1) Thrombocytopenia Assessment & Plan: sepsis and HIV slightly improved Status: Acute (2) Anemia Assessment & Plan: iron deficiency and chronic disease consider IV ferrlecit when infection clears Status: Acute
--- NOTE | 2017-04-06 21:04 | CP.PCM.PN ---
Subjective - Date & Time of Evaluation Date of Evaluation: 04/06/17 Time of Evaluation: 17:00 - Subjective Subjective: No complaints. Objective - Vital Signs/Intake and Output Vital Signs (last 24 hours): Temp Pulse Resp BP Pulse Ox 98.4 F 76 20 131/69 99 04/06/17 16:00 04/06/17 16:00 04/06/17 16:00 04/06/17 16:00 04/06/17 16:00 Intake and Output: 04/06/17 04/07/17 18:59 06:59 Intake Total 260 Balance 260 - Medications Medications: Current Medications Acetaminophen (Tylenol 325mg Tab) 650 mg PO Q6H PRN PRN Reason: Fever >100.4 F Last Admin: 03/22/17 10:15 Dose: 650 mg Benztropine Mesylate (Cogentin) 1 mg PO BID [facility] Last Admin: 04/06/17 17:59 Dose: 1 mg Emtricitabine/Tenofovir (Truvada 200 Mg-300 Mg) 1 tab PO DAILY [facility] Last Admin: 04/06/17 10:18 Dose: Not Given Famotidine (Pepcid) 20 mg PO DAILY [facility] Last Admin: 04/06/17 10:17 Dose: Not Given Ferrous Sulfate (Feosol) 325 mg PO DAILY [facility] Last Admin: 04/06/17 10:16 Dose: Not Given Fluphenazine HCl (Prolixin) 5 mg PO BID [facility] Last Admin: 04/06/17 17:59 Dose: 5 mg Meropenem 500 mg/ Sodium (Chloride) 100 mls @ 100 mls/hr IVPB Q8 [facility] Last Admin: 04/06/17 13:35 Dose: 100 mls/hr Insulin Aspart (Novolog) 0 unit SC ACHS [facility] PRN Reason: Protocol Last Admin: 04/06/17 16:30 Dose: Not Given Montelukast Sodium (Singulair) 10 mg PO HS [facility] Last Admin: 04/05/17 21:23 Dose: 10 mg Multivitamins (Hexavitamin) 1 tab PO DAILY [facility] Last Admin: 04/06/17 10:17 Dose: Not Given Potassium Chloride (K-Dur 20 Meq Er Tab) 20 meq PO DAILY [facility] Last Admin: 04/06/17 10:14 Dose: Not Given Raltegravir (Isentress) 400 mg PO BID [facility] Last Admin: 04/06/17 17:59 Dose: 400 mg Saccharomyces Boulardii (Florastor) 250 mg PO BID [facility] Last Admin: 04/06/17 17:59 Dose: 250 mg Saliva Substitute (First Magic Mouthwash) 5 ml PO Q4H [facility] Last Admin: 04/06/17 12:16 Dose: 5 ml Senna/Docusate Sodium (Senokot S 50 Mg-8.6 Mg) 1 tab PO HS PRN PRN Reason: Constipation Last Admin: 04/03/17 10:11 Dose: 1 tab Sertraline HCl (Zoloft) 50 mg PO DAILY [facility] Last Admin: 04/06/17 10:18 Dose: Not Given Vitamin A (Vitamin A & D Oint Ud Foilpak) 0.5 ea TOP Q4 PRN PRN Reason: Dry mouth - Labs Labs: 04/06/17 06:59 04/06/17 06:59 - Head Exam Head Exam: ATRAUMATIC - Eye Exam Eye Exam: Normal appearance - ENT Exam ENT Exam: Mucous Membranes Dry - Respiratory Exam Respiratory Exam: NORMAL BREATHING PATTERN - Cardiovascular Exam Cardiovascular Exam: +S1, +S2 - GI/Abdominal Exam GI & Abdominal Exam: Normal Bowel Sounds Assessment and Plan (1) Thrombocytopenia Assessment & Plan: sepsis and HIV slightly improved Status: Acute (2) Anemia Assessment & Plan: iron deficiency and chronic disease consider IV ferrlecit when infection clears Status: Acute
[2017-04-07] MEDS: Mag&Al/Simet/Diphen/Lido 237 ML KIT PO SCH ×6 (00:15→20:15)
[2017-04-07] MEDS: Meropenem 500 MG in Sodium Chloride 0.9% 100 ML IVPB SCH ×3 (05:28→21:20)
[2017-04-07] MEDS: (Novolog) Insulin Aspart, Recombinant 100 u/ml 10 ml vial SC SCH ×4 (07:44→21:21)
[2017-04-07 08:15] LABS: BASO % 0.4 % (0.0-2.0); EOS % 0.8 % (0.0-4.0); HEMATOCRIT 35.2 % (35.0-51.0); LYMPH # 0.3 K/uL (1.0-4.3); LYMPH % 5.1 % (20.0-40.0); MEAN CELL VOLUME 76.6 fL (80.0-94.0); MEAN CORPUSCULAR HEMOGLOBIN 24.3 pg (27.0-31.0); MEAN CORPUSCULAR HGB CONC 31.8 g/dL (33.0-37.0); MEAN PLATELET VOLUME 8.5 fL (7.2-11.7); MONO # 0.3 K/uL (0.0-0.8); MONO % 5.1 % (0.0-10.0); NRBC % 0.1 % (0.0-2.0); PLATELET COUNT 47 K/uL (130-400); RED CELL DISTRIBUTION WIDTH 29.4 % (11.5-14.5); WHITE BLOOD COUNT 5.3 K/uL (4.8-10.8)
[2017-04-07 08:43] LABS: ALB/GLOB RATIO 0.6 (1.0-2.1); ALKALINE PHOSPHATASE 279 U/L (38-126); ALT/SGPT 68 U/L (21-72); AST/SGOT 59 U/L (17-59); BILIRUBIN,TOTAL 0.8 mg/dL (0.2-1.3); BLOOD UREA NITROGEN 22 mg/dL (9-20); CALCIUM 7.2 mg/dl (8.6-10.4); CARBON DIOXIDE 30 mmol/L (22-30); CHLORIDE 98 mmol/L (98-107); GFR AFRICAN-AMERICAN > 60; GLUCOSE,RANDOM 65 mg/dL (75-110); MAGNESIUM 1.8 mg/dL (1.6-2.3); PHOSPHOROUS 2.6 mg/dL (2.5-4.5); POTASSIUM 4.7 mmol/L (3.6-5.2); SODIUM 136 mmol/L (132-148); TOTAL PROTEIN 5.3 g/dL (6.3-8.3)
[2017-04-07] MEDS: Potassium Chloride 20 mEq ER Tab PO SCH (10:00)
[2017-04-07] MEDS: Emtricitabine-Tenofovir 200 mg-300 mg Tab PO SCH (10:00)
[2017-04-07] MEDS: Multiple Vitamins Tab PO SCH (10:00)
[2017-04-07] MEDS: Docusate-Senna 50 mg-8.6 mg Tab PO PRN (10:00)
[2017-04-07 10:37] LABS: NEUTROPHIL 85 % (50-75); TOTAL CELLS COUNTED 100
[2017-04-07] MEDS: Saccharomyces Boulardi 250 mg Cap PO SCH ×2 (10:57→17:36)
--- NOTE | 2017-04-07 15:36 | CP.PCM.PN ---
Subjective - Date & Time of Evaluation Date of Evaluation: 04/07/17 Time of Evaluation: 10:00 - Subjective Subjective: weak lethargic nad Objective - Vital Signs/Intake and Output Vital Signs (last 24 hours): Temp Pulse Resp BP Pulse Ox 98.5 F 82 20 132/46 L 97 04/07/17 15:28 04/07/17 15:28 04/07/17 15:28 04/07/17 15:28 04/07/17 15:28 Intake and Output: 04/07/17 04/07/17 06:59 18:59 Intake Total 130 280 Balance 130 280 - Medications Medications: Current Medications Acetaminophen (Tylenol 325mg Tab) 650 mg PO Q6H PRN PRN Reason: Fever >100.4 F Last Admin: 03/22/17 10:15 Dose: 650 mg Benztropine Mesylate (Cogentin) 1 mg PO BID [facility] Last Admin: 04/07/17 10:00 Dose: 1 mg Emtricitabine/Tenofovir (Truvada 200 Mg-300 Mg) 1 tab PO DAILY [facility] Last Admin: 04/07/17 10:00 Dose: 1 tab Famotidine (Pepcid) 20 mg PO DAILY [facility] Last Admin: 04/07/17 11:00 Dose: 20 mg Ferrous Sulfate (Feosol) 325 mg PO DAILY [facility] Last Admin: 04/07/17 10:05 Dose: 325 mg Fluphenazine HCl (Prolixin) 5 mg PO BID [facility] Last Admin: 04/07/17 10:00 Dose: 5 mg Meropenem 500 mg/ Sodium (Chloride) 100 mls @ 100 mls/hr IVPB Q8 [facility] Last Admin: 04/07/17 13:57 Dose: 100 mls/hr Insulin Aspart (Novolog) 0 unit SC ACHS [facility] PRN Reason: Protocol Last Admin: 04/07/17 11:30 Dose: Not Given Montelukast Sodium (Singulair) 10 mg PO HS [facility] Last Admin: 04/06/17 21:16 Dose: 10 mg Multivitamins (Hexavitamin) 1 tab PO DAILY [facility] Last Admin: 04/07/17 10:00 Dose: 1 tab Potassium Chloride (K-Dur 20 Meq Er Tab) 20 meq PO DAILY [facility] Last Admin: 04/07/17 10:00 Dose: 20 meq Raltegravir (Isentress) 400 mg PO BID [facility] Last Admin: 04/07/17 10:00 Dose: 400 mg Saccharomyces Boulardii (Florastor) 250 mg PO BID [facility] Last Admin: 04/07/17 10:57 Dose: 250 mg Saliva Substitute (First Magic Mouthwash) 5 ml PO Q4H [facility] Last Admin: 04/07/17 12:15 Dose: 5 ml Senna/Docusate Sodium (Senokot S 50 Mg-8.6 Mg) 1 tab PO HS PRN PRN Reason: Constipation Last Admin: 04/07/17 10:00 Dose: 1 tab Sertraline HCl (Zoloft) 50 mg PO DAILY [facility] Last Admin: 04/07/17 10:00 Dose: 50 mg Vitamin A (Vitamin A & D Oint Ud Foilpak) 0.5 ea TOP Q4 PRN PRN Reason: Dry mouth - Labs Labs: 04/07/17 08:05 04/07/17 08:05 - Constitutional Appears: Non-toxic, Chronically Ill - Head Exam Head Exam: NORMOCEPHALIC - Eye Exam Eye Exam: PERRL - ENT Exam ENT Exam: Mucous Membranes Dry - Neck Exam Neck Exam: absent: Lymphadenopathy - Respiratory Exam Respiratory Exam: Decreased Breath Sounds - Cardiovascular Exam Cardiovascular Exam: REGULAR RHYTHM - GI/Abdominal Exam GI & Abdominal Exam: Distended, Soft - Rectal Exam Rectal Exam: Deferred Assessment and Plan (1) Anemia Status: Acute (2) CHF (congestive heart failure) Status: Acute (3) COPD (chronic obstructive pulmonary disease) Status: Acute (4) Change in mental status Status: Acute (5) Hypokalemia Status: Acute (6) Sepsis Status: Acute (7) Chest pain Status: Acute - Assessment and Plan (Free Text) Assessment: renew iv rx
[2017-04-08] MEDS: Mag&Al/Simet/Diphen/Lido 237 ML KIT PO SCH ×5 (00:15→21:09)
[2017-04-08] MEDS: Meropenem 500 MG in Sodium Chloride 0.9% 100 ML IVPB SCH ×3 (05:43→21:09)
[2017-04-08 08:25] LABS: BASO % 0.5 % (0.0-2.0); EOS # 0.1 K/uL (0.0-0.7); EOS % 1.2 % (0.0-4.0); HEMATOCRIT 35.8 % (35.0-51.0); LYMPH # 0.3 K/uL (1.0-4.3); LYMPH % 6.3 % (20.0-40.0); MEAN CELL VOLUME 77.9 fL (80.0-94.0); MEAN CORPUSCULAR HEMOGLOBIN 24.1 pg (27.0-31.0); MEAN CORPUSCULAR HGB CONC 30.9 g/dL (33.0-37.0); MEAN PLATELET VOLUME 8.3 fL (7.2-11.7); MONO # 0.3 K/uL (0.0-0.8); MONO % 7.3 % (0.0-10.0); PLATELET COUNT 51 K/uL (130-400); RED CELL DISTRIBUTION WIDTH 29.2 % (11.5-14.5); WHITE BLOOD COUNT 4.3 K/uL (4.8-10.8)
[2017-04-08 08:35] LABS: ALB/GLOB RATIO 0.6 (1.0-2.1); BILIRUBIN,TOTAL 0.7 mg/dL (0.2-1.3); MAGNESIUM 1.8 mg/dL (1.6-2.3); PHOSPHOROUS 2.7 mg/dL (2.5-4.5); POTASSIUM 4.2 mmol/L (3.6-5.2); TOTAL PROTEIN 5.3 g/dL (6.3-8.3)
[2017-04-08 09:13] LABS: EOSINOPHIL 1 % (0-4); NEUTROPHIL 82 % (50-75); TOTAL CELLS COUNTED 100
[2017-04-08] MEDS: Multiple Vitamins Tab PO SCH (10:36)
[2017-04-08] MEDS: Potassium Chloride 20 mEq ER Tab PO SCH (10:36)
[2017-04-08] MEDS: Emtricitabine-Tenofovir 200 mg-300 mg Tab PO SCH (10:37)
[2017-04-08] MEDS: Docusate-Senna 50 mg-8.6 mg Tab PO PRN (10:37)
[2017-04-08] MEDS: Saccharomyces Boulardi 250 mg Cap PO SCH ×2 (10:42→17:22)
[2017-04-08] MEDS: (Novolog) Insulin Aspart, Recombinant 100 u/ml 10 ml vial SC SCH ×4 (10:43→21:16)
[2017-04-09] MEDS: Mag&Al/Simet/Diphen/Lido 237 ML KIT PO SCH ×6 (04:59→20:15)
[2017-04-09] MEDS: Meropenem 500 MG in Sodium Chloride 0.9% 100 ML IVPB SCH ×2 (05:00→13:25)
[2017-04-09 06:48] LABS: BASO % 0.4 % (0.0-2.0); EOS # 0.1 K/uL (0.0-0.7); EOS % 2.1 % (0.0-4.0); HEMATOCRIT 31.6 % (35.0-51.0); LYMPH # 0.4 K/uL (1.0-4.3); LYMPH % 9.2 % (20.0-40.0); MEAN CELL VOLUME 76.6 fL (80.0-94.0); MEAN CORPUSCULAR HEMOGLOBIN 24.4 pg (27.0-31.0); MEAN CORPUSCULAR HGB CONC 31.8 g/dL (33.0-37.0); MEAN PLATELET VOLUME 8.4 fL (7.2-11.7); MONO # 0.4 K/uL (0.0-0.8); MONO % 8.8 % (0.0-10.0); PLATELET COUNT 67 K/uL (130-400); RED CELL DISTRIBUTION WIDTH 29.8 % (11.5-14.5); WHITE BLOOD COUNT 4.2 K/uL (4.8-10.8)
[2017-04-09] MEDS: (Novolog) Insulin Aspart, Recombinant 100 u/ml 10 ml vial SC SCH ×4 (07:48→21:50)
[2017-04-09 07:51] LABS: POTASSIUM 4.6 mmol/L (3.6-5.2)
[2017-04-09 07:53] LABS: BILIRUBIN,TOTAL 0.7 mg/dL (0.2-1.3)
[2017-04-09 07:54] LABS: ALB/GLOB RATIO 0.6 (1.0-2.1); PHOSPHOROUS 2.7 mg/dL (2.5-4.5); TOTAL PROTEIN 5.1 g/dL (6.3-8.3)
[2017-04-09 07:55] LABS: MAGNESIUM 1.8 mg/dL (1.6-2.3)
[2017-04-09 08:51] LABS: EOSINOPHIL 1 % (0-4); NEUTROPHIL 84 % (50-75); TOTAL CELLS COUNTED 100
[2017-04-09] MEDS: Saccharomyces Boulardi 250 mg Cap PO SCH ×2 (09:56→17:48)
[2017-04-09] MEDS: Potassium Chloride 20 mEq ER Tab PO SCH (09:56)
[2017-04-09] MEDS: Multiple Vitamins Tab PO SCH (09:56)
[2017-04-09] MEDS: Emtricitabine-Tenofovir 200 mg-300 mg Tab PO SCH (09:58)
--- NOTE | 2017-04-09 12:14 | CP.PCM.PN ---
Subjective - Date & Time of Evaluation Date of Evaluation: 04/09/17 Time of Evaluation: 10:25 - Subjective Subjective: PGY 2 Medicine Note- Dr. Stanley's service Pt seen and examined in no acute distress. Patient's mentation waxing and waning upon evaluation on several different occasions. Patient was unintelligible at times. A silverman has not been passed at this time due to anatomical presentation despite multiple attempts. Per nursing, patient has been refusing to wear the BiPAP mask. Patient denies pain, dyspnea, palpitations or chest pain at this time. Objective - Vital Signs/Intake and Output Vital Signs (last 24 hours): Temp Pulse Resp BP Pulse Ox 97.9 F 96 H 20 106/68 95 04/09/17 08:09 04/09/17 08:09 04/09/17 08:09 04/09/17 08:09 04/09/17 08:09 Intake and Output: 04/09/17 04/09/17 06:59 18:59 Intake Total 600 Balance 600 - Medications Medications: Current Medications Acetaminophen (Tylenol 325mg Tab) 650 mg PO Q6H PRN PRN Reason: Fever >100.4 F Last Admin: 03/22/17 10:15 Dose: 650 mg Benztropine Mesylate (Cogentin) 1 mg PO BID [facility] Last Admin: 04/09/17 09:57 Dose: 1 mg Emtricitabine/Tenofovir (Truvada 200 Mg-300 Mg) 1 tab PO DAILY [facility] Last Admin: 04/09/17 09:58 Dose: 1 tab Famotidine (Pepcid) 20 mg PO DAILY [facility] Last Admin: 04/09/17 09:56 Dose: 20 mg Ferrous Sulfate (Feosol) 325 mg PO DAILY [facility] Last Admin: 04/09/17 09:56 Dose: 325 mg Fluphenazine HCl (Prolixin) 5 mg PO BID [facility] Last Admin: 04/09/17 09:57 Dose: 5 mg Meropenem 500 mg/ Sodium (Chloride) 100 mls @ 100 mls/hr IVPB Q8 [facility] Last Admin: 04/09/17 05:00 Dose: 100 mls/hr Insulin Aspart (Novolog) 0 unit SC ACHS [facility] PRN Reason: Protocol Last Admin: 04/09/17 11:27 Dose: Not Given Montelukast Sodium (Singulair) 10 mg PO HS [facility] Last Admin: 04/08/17 21:08 Dose: 10 mg Multivitamins (Hexavitamin) 1 tab PO DAILY [facility] Last Admin: 04/09/17 09:56 Dose: 1 tab Potassium Chloride (K-Dur 20 Meq Er Tab) 20 meq PO DAILY [facility] Last Admin: 04/09/17 09:56 Dose: 20 meq Raltegravir (Isentress) 400 mg PO BID [facility] Last Admin: 04/09/17 09:57 Dose: 400 mg Saccharomyces Boulardii (Florastor) 250 mg PO BID [facility] Last Admin: 04/09/17 09:56 Dose: 250 mg Saliva Substitute (First Magic Mouthwash) 5 ml PO Q4H [facility] Last Admin: 04/09/17 08:41 Dose: Not Given Senna/Docusate Sodium (Senokot S 50 Mg-8.6 Mg) 1 tab PO HS PRN PRN Reason: Constipation Last Admin: 04/08/17 10:37 Dose: 1 tab Sertraline HCl (Zoloft) 50 mg PO DAILY [facility] Last Admin: 04/09/17 09:56 Dose: 50 mg - Labs Labs: 04/09/17 06:39 04/09/17 06:39 - Constitutional Appears: No Acute Distress - Head Exam Head Exam: NORMAL INSPECTION - Eye Exam Eye Exam: EOMI, Normal appearance Pupil Exam: PERRL - ENT Exam ENT Exam: Mucous Membranes Dry - Neck Exam Neck Exam: Full ROM - Respiratory Exam Respiratory Exam: NORMAL BREATHING PATTERN. absent: Wheezes - Cardiovascular Exam Cardiovascular Exam: +S1, +S2 - GI/Abdominal Exam GI & Abdominal Exam: Soft, Normal Bowel Sounds - Exam Exam: Scrotal Swelling Additional comments: buried penis - Extremities Exam Extremities Exam: Full ROM, Normal Capillary Refill, Pedal Edema. absent: Tenderness - Back Exam Back Exam: absent: Full ROM - Neurological Exam Neurological Exam: Awake. absent: Oriented x3 - Psychiatric Exam Psychiatric exam: Flat Affect - Skin Skin Exam: Dry, Pallor, Warm Assessment and Plan - Assessment and Plan (Free Text) Assessment: Change in Mental Status F/U Head CT ABG drawn does not correlate with CMP labs. Likely Venous draw. Will need to repeat. Continue to monitor SUZANNE F/U Nephrology Patient would benefit from fluids however will consider administering with caution in light of CHF. Dyspnea- Secondary to COPD v. CHF v. Lung CA v. Pneumonia Patient would benefit from BiPAP however he prefers nasal canula at this time. Encourage patient to wear BiPAP Mycoplasma negative Blood cultures negative 03/29: CXR shows minimal change interval from previous study; chronic changes in LML and LLL. Sepsis secondary to UTI Continue Meropenem 500mg (started on 03/31), will F/U with ID regarding duration of treatment. Bands decreasing. Will repeat urine culture Started Florastor 04/05 Patient was started on Primaxin on 03/24 and was discontinued 03/31 Currently afebrile, WBC 4.2 Silverman was inserted on 03/22 - Silverman was discontinued 04/01. New Silverman on 04/05 in light of patient's incontinence. Repeat U/C ordered for 04/04 uncollected bc there was no silverman in place. Silverman unable to be inserted due to resistance upon insertion on 04/05. Will need to reassess. Pending reassessment, patient may benefit frm a a urology eval. Urine culture from 03/22- Proteus Mirabilis Blood culture from 03/21- Proteus Mirabilis Repeat blood culture 03/29: No growth after 5 days Pancytopenia Transfused 2 units PRBC 04/05. Now Hgb stable 10.1 Microcytic Anemia- chronic disease v. iron deficiency 04/04: Hgb 8.1 04/02: Per Dr. Connell, consider GI eval once acute illness resolves Feosol 325mg PO daily Likely secondary to sepsis or HIV Hold off Lovenox Per Dr. Connell do not transfuse platelets unless <20 Continue to monitor Mouth Sores Magic Mouthwash Q4H Electrolyte deficiency Prior Hx. Currently stable. Monitor daily, supplement as needed Obstructive Sleep Apnea BiPAP ordered for night time use- patient should go to [facility] with BIPAP at night He has been non-compliant with BiPAP. Encourage use. History of COPD On n/c. Duonebs as needed PRN Singulair 10mg PO daily History of HIV % CD4 cells 59, Absolute CD4 158 ; % [id number] 8, Absolute CD8 23 04/02: ID Consulted, Dr La, f/u recs - Truvada 1 tab PO daily (home med) Isentress 400mg PO BID (home med) HTN BP stable/low, continue to monitor. BP meds held due to hypotension Previous Echo done on 02/26/17- EF 62% (see full report) HLD 04/03: Stopped Crestor 20mg PO HS 2/2 elevated LFTs Transaminitis Stable Crestor held Cont to monitor Psychiatric history- questionable Schizophrenia Fluphenazine 5mg PO BID Benztropine Mesylate 1mg PO BID Z[facility] 50mg PO daily Discontinued Atarax and Trazodone due to lethargy Constipation Senna/Docusate Sodium 1 tab PO HS PRN Constipation Encourage increased water intale Transient hyperglycemia likely secondary to steroid administration ISS Continue to monitor No documented history of DM Accuchecks A1c 6.2 Prophylaxis Pepcid 20mg PO daily No chemical VTE prophylaxis due to thrombocytopenia PT Eval and Treat Disposition Upon discharge patient will need BiPAP at night. Patient will benefit from additional counseling. Advance diet as tolerated All medical management as per Dr. Stanley
[2017-04-09 12:23] LABS: ARTERIAL BLOOD HGB O2 SAT 87.6 % (95.0-98.0); CARBOXYHEMOGLOBIN 2.6 % (0.5-1.5); DRAW SITE L/B; HHB 9.2 % (0.0-5.0); METHEMOGLOBIN 0.7 % (0.0-3.0)
--- NOTE | 2017-04-09 13:33 | RAD ---
HISTORY: change in mental status, dyspnea COMPARISON: No prior. FINDINGS: IJ MediPort with tip in the distal SVC and/or IVC -- RA junction. LUNGS: Re- demonstrated are patchy opacities in the left lung base. . There may be some mild right basilar atelectasis due to low lung volumes. PLEURA: No significant pleural effusion identified, no pneumothorax apparent. CARDIOVASCULAR: Heart size remains enlarged unchanged. OSSEOUS STRUCTURES: Re- demonstrated is ORIF left plate attached to the proximal humeral neck and head unchanged. VISUALIZED UPPER ABDOMEN: Normal. OTHER FINDINGS: None. IMPRESSION: Re- demonstrated are patchy opacities in the left lung base. . There may be some mild right basilar atelectasis due to low lung volumes. Cardiomegaly
[2017-04-09 13:52] LABS: ARTERIAL BLOOD HGB O2 SAT 88.3 % (95.0-98.0); DRAW SITE LB; HHB 8.8 % (0.0-5.0); METHEMOGLOBIN 0.9 % (0.0-3.0)
--- NOTE | 2017-04-09 14:28 | CT ---
PROCEDURE: CT HEAD WITHOUT CONTRAST. HISTORY: change in mental status COMPARISON: None available. TECHNIQUE: Axial computed tomography images were obtained through the head/brain without intravenous contrast. Radiation dose: Total exam DLP = 1094.39 mGy-cm. This CT exam was performed using one or more of the following dose reduction techniques: Automated exposure control, adjustment of the mA and/or kV according to patient size, and/or use of iterative reconstruction technique. FINDINGS: HEMORRHAGE: No intracranial hemorrhage. BRAIN: Diffuse atrophy with prominence of the ventricles and sulci noted. No mass effect or edema. Intracranial atherosclerosis. Scattered periventricular and subcortical white matter hypodensities, which are nonspecific, but often seen with chronic microvascular ischemic disease. Please note that MRI with diffusion imaging is more sensitive in the detection of acute ischemic event. VENTRICLES: No hydrocephalus. CALVARIUM: Unremarkable. PARANASAL SINUSES: Opacification of the left frontal sinus. 4 x 5 mm osteoma, right anterior ethmoid air cells. Partial opacification of the left maxillary sinus. Minimal mucosal thickening of the right maxillary sinus. MASTOID AIR CELLS: Opacification/fluid throughout bilateral mastoid air cells. Correlate clinically for mastoiditis. OTHER FINDINGS: None. IMPRESSION: Generalized atrophy. Nonspecific white matter changes. Opacification/fluid throughout bilateral mastoid air cells. Correlate clinically for mastoiditis. Opacification of the left frontal sinus. Partial opacification of the left maxillary sinus. Minimal mucosal thickening of the right maxillary sinus. Correlate clinically for sinusitis. 4 x 5 mm osteoma, right anterior ethmoid air cells.
--- NOTE | 2017-04-09 21:22 | CP.PCM.PN ---
Subjective - Date & Time of Evaluation Date of Evaluation: 04/09/17 Time of Evaluation: 17:00 - Subjective Subjective: No complaints. Objective - Vital Signs/Intake and Output Vital Signs (last 24 hours): Temp Pulse Resp BP Pulse Ox 97.9 F 88 20 96/61 L 96 04/09/17 16:00 04/09/17 16:00 04/09/17 16:00 04/09/17 16:00 04/09/17 16:00 Intake and Output: 04/09/17 04/10/17 18:59 06:59 Intake Total 250 Balance 250 - Medications Medications: Current Medications Acetaminophen (Tylenol 325mg Tab) 650 mg PO Q6H PRN PRN Reason: Fever >100.4 F Last Admin: 03/22/17 10:15 Dose: 650 mg Albuterol/Ipratropium (Duoneb 3 Mg/0.5 Mg (3 Ml) Ud) 3 ml INH RQ6 PRN PRN Reason: Wheezing Benztropine Mesylate (Cogentin) 1 mg PO BID [facility] Last Admin: 04/09/17 17:49 Dose: 1 mg Emtricitabine/Tenofovir (Truvada 200 Mg-300 Mg) 1 tab PO DAILY [facility] Last Admin: 04/09/17 09:58 Dose: 1 tab Famotidine (Pepcid) 20 mg PO DAILY [facility] Last Admin: 04/09/17 09:56 Dose: 20 mg Ferrous Sulfate (Feosol) 325 mg PO DAILY [facility] Last Admin: 04/09/17 09:56 Dose: 325 mg Fluphenazine HCl (Prolixin) 5 mg PO BID [facility] Last Admin: 04/09/17 09:57 Dose: 5 mg Meropenem 500 mg/ Sodium (Chloride) 100 mls @ 100 mls/hr IVPB Q8 [facility] Last Admin: 04/09/17 13:25 Dose: 100 mls/hr Insulin Aspart (Novolog) 0 unit SC ACHS [facility] PRN Reason: Protocol Last Admin: 04/09/17 16:30 Dose: Not Given Montelukast Sodium (Singulair) 10 mg PO HS [facility] Last Admin: 04/08/17 21:08 Dose: 10 mg Multivitamins (Hexavitamin) 1 tab PO DAILY [facility] Last Admin: 04/09/17 09:56 Dose: 1 tab Raltegravir (Isentress) 400 mg PO BID [facility] Last Admin: 04/09/17 17:49 Dose: 400 mg Saccharomyces Boulardii (Florastor) 250 mg PO BID [facility] Last Admin: 04/09/17 17:48 Dose: 250 mg Saliva Substitute (First Magic Mouthwash) 5 ml PO Q4H [facility] Last Admin: 04/09/17 16:15 Dose: 5 ml Senna/Docusate Sodium (Senokot S 50 Mg-8.6 Mg) 1 tab PO HS PRN PRN Reason: Constipation Last Admin: 04/08/17 10:37 Dose: 1 tab Sertraline HCl (Zoloft) 50 mg PO DAILY [facility] Last Admin: 04/09/17 09:56 Dose: 50 mg - Labs Labs: 04/09/17 06:39 04/09/17 06:39 - Head Exam Head Exam: ATRAUMATIC - Eye Exam Eye Exam: Normal appearance - ENT Exam ENT Exam: Mucous Membranes Dry - Respiratory Exam Respiratory Exam: NORMAL BREATHING PATTERN - Cardiovascular Exam Cardiovascular Exam: +S1, +S2 - GI/Abdominal Exam GI & Abdominal Exam: Normal Bowel Sounds Assessment and Plan (1) Thrombocytopenia Assessment & Plan: HIV and sepsis improving Status: Acute (2) Anemia Assessment & Plan: iron deficiency and chronic disease consider IV ferrlecit when infection clears Status: Acute
--- NOTE | 2017-04-09 22:22 | US ---
EXAM: US Retroperitoneal Limited, Renal EXAM DATE/TIME: 04/09/2017 6:14 PM CLINICAL HISTORY: 66 years old, male; Abnormal findings; Abnormal lab test; Other: Heriberto TECHNIQUE: Real-time ultrasound of the retroperitoneum (limited) with image documentation. COMPARISON: There are no prior studies for comparison. FINDINGS: Right kidney: Right kidney measures at least 12.5 x 6.7 x 6.4 cm.Corticomedullary differentiation is visualized. There is no pelvocaliectasis or ureterectasis. 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 Corticomedullary differentiation is visualized. There is no pelvocaliectasis or ureterectasis. Bladder: Distended bladder is normal in appearance. Estimated volume is 812 cc. Bilateral ureteral jets are seen in color imaging. Mass: There is a 6 x 6.4 x 5.4 cm thick walled cystic mass inferior to the base of the bladder on the left. Relationship to the prostate is not demonstrated. IMPRESSION: Normal size kidneys, no hydronephrosis; distended bladder, estimated volume 812 cc; small complex cystic mass inferior and to the left of the base of the bladder difficult to further characterize
[2017-04-10] MEDS: Mag&Al/Simet/Diphen/Lido 237 ML KIT PO SCH ×6 (00:15→20:15)
[2017-04-10] MEDS: Meropenem 500 MG in Sodium Chloride 0.9% 100 ML IVPB SCH ×4 (05:26→22:04)
[2017-04-10] MEDS: (Novolog) Insulin Aspart, Recombinant 100 u/ml 10 ml vial SC SCH ×4 (07:33→22:05)
[2017-04-10 08:14] LABS: BASO % 0.5 % (0.0-2.0); EOS # 0.1 K/uL (0.0-0.7); EOS % 2.7 % (0.0-4.0); HEMATOCRIT 30.6 % (35.0-51.0); LYMPH # 0.4 K/uL (1.0-4.3); LYMPH % 7.3 % (20.0-40.0); MEAN CELL VOLUME 77.3 fL (80.0-94.0); MEAN CORPUSCULAR HEMOGLOBIN 24.3 pg (27.0-31.0); MEAN CORPUSCULAR HGB CONC 31.5 g/dL (33.0-37.0); MEAN PLATELET VOLUME 8.5 fL (7.2-11.7); MONO # 0.5 K/uL (0.0-0.8); MONO % 9.3 % (0.0-10.0); NRBC % 0.1 % (0.0-2.0); PLATELET COUNT 85 K/uL (130-400); RED CELL DISTRIBUTION WIDTH 29.8 % (11.5-14.5); WHITE BLOOD COUNT 5.1 K/uL (4.8-10.8)
[2017-04-10 08:32] LABS: POTASSIUM 4.8 mmol/L (3.6-5.2)
[2017-04-10 08:34] LABS: BILIRUBIN,TOTAL 0.6 mg/dL (0.2-1.3); TOTAL PROTEIN 4.8 g/dL (6.3-8.3)
[2017-04-10 08:35] LABS: CALCIUM 6.9 mg/dl (8.6-10.4); MAGNESIUM 1.8 mg/dL (1.6-2.3); PHOSPHOROUS 2.7 mg/dL (2.5-4.5)
[2017-04-10 08:37] LABS: ALB/GLOB RATIO 0.5 (1.0-2.1)
[2017-04-10 09:23] LABS: NEUTROPHIL 85 % (50-75); TOTAL CELLS COUNTED 100
[2017-04-10] MEDS: Multiple Vitamins Tab PO SCH (09:23)
[2017-04-10] MEDS: Saccharomyces Boulardi 250 mg Cap PO SCH ×2 (09:24→18:08)
[2017-04-10] MEDS: Emtricitabine-Tenofovir 200 mg-300 mg Tab PO SCH (09:25)
[2017-04-10] MEDS ORDERED: Sodium Chloride 0.9% 1,000 ML IV SCH (11:30)
--- NOTE | 2017-04-10 12:12 | CP.PCM.PN ---
Subjective - Date & Time of Evaluation Date of Evaluation: 04/10/17 Time of Evaluation: 09:10 - Subjective Subjective: PGY2 Medicine progress note for Dr. Stanley's service: Patient seen and examined. Patient drowsy. Per nursing patient having large volume diarrhea and poor oral intake. Objective - Vital Signs/Intake and Output Vital Signs (last 24 hours): Temp Pulse Resp BP Pulse Ox 98.5 F 71 20 119/74 99 04/10/17 07:15 04/10/17 07:15 04/10/17 07:15 04/10/17 07:15 04/10/17 07:15 Intake and Output: 04/10/17 04/10/17 06:59 18:59 Intake Total 260 220 Balance 260 220 - Medications Medications: Current Medications Acetaminophen (Tylenol 325mg Tab) 650 mg PO Q6H PRN PRN Reason: Fever >100.4 F Last Admin: 03/22/17 10:15 Dose: 650 mg Albuterol/Ipratropium (Duoneb 3 Mg/0.5 Mg (3 Ml) Ud) 3 ml INH RQ6 PRN PRN Reason: Wheezing Benztropine Mesylate (Cogentin) 1 mg PO BID [facility] Last Admin: 04/10/17 09:25 Dose: 1 mg Emtricitabine/Tenofovir (Truvada 200 Mg-300 Mg) 1 tab PO DAILY [facility] Last Admin: 04/10/17 09:25 Dose: 1 tab Famotidine (Pepcid) 20 mg PO DAILY [facility] Last Admin: 04/10/17 09:23 Dose: 20 mg Ferrous Sulfate (Feosol) 325 mg PO DAILY [facility] Last Admin: 04/10/17 09:23 Dose: 325 mg Fluphenazine HCl (Prolixin) 5 mg PO BID [facility] Last Admin: 04/10/17 09:24 Dose: 5 mg Meropenem 500 mg/ Sodium (Chloride) 100 mls @ 100 mls/hr IVPB Q8 [facility] Last Admin: 04/10/17 05:26 Dose: 100 mls/hr Metronidazole (Flagyl) 500 mg in 100 mls @ 100 mls/hr IVPB Q8 [facility] Insulin Aspart (Novolog) 0 unit SC ACHS [facility] PRN Reason: Protocol Last Admin: 04/10/17 12:07 Dose: Not Given Montelukast Sodium (Singulair) 10 mg PO HS [facility] Last Admin: 04/09/17 21:51 Dose: 10 mg Multivitamins (Hexavitamin) 1 tab PO DAILY [facility] Last Admin: 04/10/17 09:23 Dose: 1 tab Raltegravir (Isentress) 400 mg PO BID [facility] Last Admin: 04/10/17 09:24 Dose: 400 mg Saccharomyces Boulardii (Florastor) 250 mg PO BID [facility] Last Admin: 04/10/17 09:24 Dose: 250 mg Saliva Substitute (First Magic Mouthwash) 5 ml PO Q4H [facility] Last Admin: 04/10/17 08:19 Dose: Not Given Senna/Docusate Sodium (Senokot S 50 Mg-8.6 Mg) 1 tab PO HS PRN PRN Reason: Constipation Last Admin: 04/08/17 10:37 Dose: 1 tab Sertraline HCl (Zoloft) 50 mg PO DAILY [facility] Last Admin: 04/10/17 09:23 Dose: 50 mg - Labs Labs: 04/10/17 08:02 04/10/17 08:02 - Constitutional Appears: Confused, Chronically Ill - Head Exam Head Exam: ATRAUMATIC, NORMOCEPHALIC - Eye Exam Eye Exam: EOMI - ENT Exam ENT Exam: Mucous Membranes Moist - Respiratory Exam Respiratory Exam: Decreased Breath Sounds. absent: Respiratory Distress - Cardiovascular Exam Cardiovascular Exam: +S1, +S2 - GI/Abdominal Exam GI & Abdominal Exam: Soft, Normal Bowel Sounds. absent: Tenderness - Exam Exam: Scrotal Swelling Additional comments: scrotal and penile edema, unable to visualize meatus to pass through silverman catheter - Extremities Exam Extremities Exam: Pedal Edema Additional comments: 2+ pitting edema of lower extremities - Neurological Exam Neurological Exam: Awake - Skin Skin Exam: Warm Assessment and Plan - Assessment and Plan (Free Text) Assessment: Obstructive uropathy bladder scan with >1000cc urine bladder US yesterday shows complex cystic mass left and inferior to bladder, 812 cc urine present scrotum and penis is edematous and meatus cannot be identified Dr. Bailey Paula consulted for urinary retention, will see patient today to insert silverman catheter will keep NPO in case patient needs OR procedure Change in Mental Status Head CT: no mass effect, edema, bleed. atrophy seen ABG drawn does not correlate with CMP labs. Likely Venous draw. Will repeat ABG today Diarrhea patient has been on multiple IV antibiotics and is now having large volume diarrhea will check for C. diff, culture starting flagyl IVPB prophylactically SUZANNE F/U Nephrology may be partially due to urinary obstruction Dyspnea- Secondary to COPD v. CHF v. Lung CA v. Pneumonia Patient would benefit from BiPAP however he prefers nasal canula at this time. Encourage patient to wear BiPAP Mycoplasma negative Blood cultures negative 03/29: CXR shows minimal change interval from previous study; chronic changes in LML and LLL. Sepsis secondary to UTI Continue Meropenem 500mg (started on 03/31), will F/U with ID regarding duration of treatment. Bands decreasing. Will repeat urine culture Started Florastor 04/05 Patient was started on Primaxin on 03/24 and was discontinued 03/31 Currently afebrile, WBC 4.2 Silverman was inserted on 03/22 - Silverman was discontinued 04/01. New Silverman on 04/05 in light of patient's incontinence. Repeat U/C ordered for 04/04 uncollected bc there was no silverman in place. Silverman unable to be inserted due to resistance upon insertion on 04/05. Will need to reassess. Pending reassessment, patient may benefit frm a a urology eval. Urine culture from 03/22- Proteus Mirabilis Blood culture from 03/21- Proteus Mirabilis Repeat blood culture 03/29: No growth after 5 days Pancytopenia Transfused 2 units PRBC 04/05. Now Hgb 9.6 Microcytic Anemia- chronic disease v. iron deficiency 04/04: Hgb 8.1 04/02: Per Dr. Connell, consider GI eval once acute illness resolves Feosol 325mg PO daily Likely secondary to sepsis or HIV Hold off Lovenox Per Dr. Connell do not transfuse platelets unless <20 Continue to monitor Mouth Sores Magic Mouthwash Q4H Electrolyte deficiency Prior Hx. Currently stable. Monitor daily, supplement as needed Obstructive Sleep Apnea BiPAP ordered for night time use- patient should go to prison with BIPAP at night He has been non-compliant with BiPAP. Encourage use. History of COPD On n/c. Duonebs as needed PRN Singulair 10mg PO daily History of HIV % CD4 cells 59, Absolute CD4 158 ; % OM2yipeh 8, Absolute CD8 23 8/29: ID Consulted, Dr La, f/u recs - Truvada 1 tab PO daily (home med) Isentress 400mg PO BID (home med) HTN BP stable/low, continue to monitor. BP meds held due to hypotension Previous Echo done on 02/26/17- EF 62% (see full report) HLD 04/03: Stopped Crestor 20mg PO HS 2/2 elevated LFTs Transaminitis Stable Crestor held Cont to monitor Psychiatric history- questionable Schizophrenia Fluphenazine 5mg PO BID Benztropine Mesylate 1mg PO BID Zoloft 50mg PO daily Discontinued Atarax and Trazodone due to lethargy Constipation Senna/Docusate Sodium 1 tab PO HS PRN Constipation Encourage increased water intale Transient hyperglycemia likely secondary to steroid administration ISS Continue to monitor No documented history of DM Accuchecks A1c 6.2 Prophylaxis Pepcid 20mg PO daily No chemical VTE prophylaxis due to thrombocytopenia PT Eval and Treat Disposition Upon discharge patient will need BiPAP at night. Patient will benefit from additional counseling. Advance diet as tolerated All medical management as per Dr. Stanley
--- NOTE | 2017-04-10 13:04 | CP.PCM.PN ---
Subjective - Date & Time of Evaluation Date of Evaluation: 04/10/17 Time of Evaluation: 11:00 - Subjective Subjective: No complaints. Objective - Vital Signs/Intake and Output Vital Signs (last 24 hours): Temp Pulse Resp BP Pulse Ox 98.5 F 71 20 119/74 99 04/10/17 07:15 04/10/17 07:15 04/10/17 07:15 04/10/17 07:15 04/10/17 07:15 Intake and Output: 04/10/17 04/10/17 06:59 18:59 Intake Total 260 220 Balance 260 220 - Medications Medications: Current Medications Acetaminophen (Tylenol 325mg Tab) 650 mg PO Q6H PRN PRN Reason: Fever >100.4 F Last Admin: 03/22/17 10:15 Dose: 650 mg Albuterol/Ipratropium (Duoneb 3 Mg/0.5 Mg (3 Ml) Ud) 3 ml INH RQ6 PRN PRN Reason: Wheezing Benztropine Mesylate (Cogentin) 1 mg PO BID [facility] Last Admin: 04/10/17 09:25 Dose: 1 mg Emtricitabine/Tenofovir (Truvada 200 Mg-300 Mg) 1 tab PO DAILY [facility] Last Admin: 04/10/17 09:25 Dose: 1 tab Famotidine (Pepcid) 20 mg PO DAILY [facility] Last Admin: 04/10/17 09:23 Dose: 20 mg Ferrous Sulfate (Feosol) 325 mg PO DAILY [facility] Last Admin: 04/10/17 09:23 Dose: 325 mg Fluphenazine HCl (Prolixin) 5 mg PO BID [facility] Last Admin: 04/10/17 09:24 Dose: 5 mg Meropenem 500 mg/ Sodium (Chloride) 100 mls @ 100 mls/hr IVPB Q8 [facility] Last Admin: 04/10/17 05:26 Dose: 100 mls/hr Metronidazole (Flagyl) 500 mg in 100 mls @ 100 mls/hr IVPB Q8 [facility] Insulin Aspart (Novolog) 0 unit SC ACHS [facility] PRN Reason: Protocol Last Admin: 04/10/17 12:07 Dose: Not Given Montelukast Sodium (Singulair) 10 mg PO HS [facility] Last Admin: 04/09/17 21:51 Dose: 10 mg Multivitamins (Hexavitamin) 1 tab PO DAILY [facility] Last Admin: 04/10/17 09:23 Dose: 1 tab Raltegravir (Isentress) 400 mg PO BID [facility] Last Admin: 04/10/17 09:24 Dose: 400 mg Saccharomyces Boulardii (Florastor) 250 mg PO BID [facility] Last Admin: 04/10/17 09:24 Dose: 250 mg Saliva Substitute (First Magic Mouthwash) 5 ml PO Q4H [facility] Last Admin: 04/10/17 08:19 Dose: Not Given Senna/Docusate Sodium (Senokot S 50 Mg-8.6 Mg) 1 tab PO HS PRN PRN Reason: Constipation Last Admin: 04/08/17 10:37 Dose: 1 tab Sertraline HCl (Zoloft) 50 mg PO DAILY [facility] Last Admin: 04/10/17 09:23 Dose: 50 mg - Labs Labs: 04/10/17 08:02 04/10/17 08:02 - Head Exam Head Exam: ATRAUMATIC - Eye Exam Eye Exam: Normal appearance - ENT Exam ENT Exam: Mucous Membranes Dry - Respiratory Exam Respiratory Exam: NORMAL BREATHING PATTERN - Cardiovascular Exam Cardiovascular Exam: +S1, +S2 - GI/Abdominal Exam GI & Abdominal Exam: Normal Bowel Sounds Assessment and Plan (1) Thrombocytopenia Assessment & Plan: HIV and sepsis plt count improving Status: Acute (2) Anemia Assessment & Plan: iron deficiency and chronic disease consider IV ferrlecit when infection clears Status: Acute
[2017-04-10 13:08] LABS: CARBOXYHEMOGLOBIN 1.9 % (0.5-1.5); DRAW SITE L/B; HHB 2.3 % (0.0-5.0); METHEMOGLOBIN 0.8 % (0.0-3.0)
[2017-04-10] MEDS: metroNIDAZOLE IV 500 mg/100 ml 500 MG/100 ML BAG IVPB SCH ×2 (14:57→22:04)
--- NOTE | 2017-04-10 15:36 | CP.PCM.CON ---
History of Present Illness - History of Present Illness History of Present Illness: 66 y/o male, whose PMHx includes COPD, and lung cancer, is sent to the ED from detention for evaluation of diminished respiratory, and altered mental status for the last 2 days. Information obtained from [place] papers. HPI limited due to patient's non-verbal status. consulted for progressive suzanne- has urinary retention and needs silverman insertion. Review of Systems - Review of Systems Systems not reviewed;Unavailable: Altered Mental Status Past Patient History - Past Medical History & Family History Past Medical History?: Yes Past Family History: Reviewed and not pertinent - Past Social History Smoking Status: Former Smoker Chewing Tobacco Use: No Cigar Use: No Alcohol: None Drugs: Denies Home Situation {Lives}: [facility] - CARDIAC Hx Congestive Heart Failure: Yes - PULMONARY Hx Chronic Obstructive Pulmonary Disease (COPD): Yes - ENDOCRINE/METABOLIC Hx Endocrine Disorders: Yes Hx Diabetes Mellitus Type 2: Yes - HEMATOLOGICAL/ONCOLOGICAL Hx Human Immunodeficiency Virus (HIV): Yes - MUSCULOSKELETAL/RHEUMATOLOGICAL Hx Arthritis: Yes Hx Falls: Yes Hx Fractures: Yes (left lower leg, wrist , hand) - PSYCHIATRIC Hx Substance Use: No - SURGICAL HISTORY Hx Surgeries: Yes Hx Orthopedic Surgery: Yes (right shoulder torn rotator cuff 3 yr ago) - ANESTHESIA Hx Anesthesia: Yes Hx Anesthesia Reactions: No Hx Malignant Hyperthermia: No Meds Allergies/Adverse Reactions: Allergies Allergy/AdvReac Type Severity Reaction Status Date / Time clopidogrel [From Plavix] Allergy Verified 03/08/17 13:31 seafood Allergy Uncoded 03/08/17 13:31 - Medications Medications: Current Medications Acetaminophen (Tylenol 325mg Tab) 650 mg PO Q6H PRN PRN Reason: Fever >100.4 F Last Admin: 03/22/17 10:15 Dose: 650 mg Albuterol/Ipratropium (Duoneb 3 Mg/0.5 Mg (3 Ml) Ud) 3 ml INH RQ6 PRN PRN Reason: Wheezing Benztropine Mesylate (Cogentin) 1 mg PO BID [facility] Last Admin: 04/10/17 09:25 Dose: 1 mg Emtricitabine/Tenofovir (Truvada 200 Mg-300 Mg) 1 tab PO DAILY [facility] Last Admin: 04/10/17 09:25 Dose: 1 tab Famotidine (Pepcid) 20 mg PO DAILY [facility] Last Admin: 04/10/17 09:23 Dose: 20 mg Ferrous Sulfate (Feosol) 325 mg PO DAILY [facility] Last Admin: 04/10/17 09:23 Dose: 325 mg Fluphenazine HCl (Prolixin) 5 mg PO BID [facility] Last Admin: 04/10/17 09:24 Dose: 5 mg Meropenem 500 mg/ Sodium (Chloride) 100 mls @ 100 mls/hr IVPB Q8 [facility] Last Admin: 04/10/17 13:48 Dose: 100 mls/hr Metronidazole (Flagyl) 500 mg in 100 mls @ 100 mls/hr IVPB Q8 [facility] Last Admin: 04/10/17 14:57 Dose: 100 mls/hr Insulin Aspart (Novolog) 0 unit SC ACHS [facility] PRN Reason: Protocol Last Admin: 04/10/17 12:07 Dose: Not Given Montelukast Sodium (Singulair) 10 mg PO HS [facility] Last Admin: 04/09/17 21:51 Dose: 10 mg Multivitamins (Hexavitamin) 1 tab PO DAILY [facility] Last Admin: 04/10/17 09:23 Dose: 1 tab Raltegravir (Isentress) 400 mg PO BID [facility] Last Admin: 04/10/17 09:24 Dose: 400 mg Saccharomyces Boulardii (Florastor) 250 mg PO BID [facility] Last Admin: 04/10/17 09:24 Dose: 250 mg Saliva Substitute (First Magic Mouthwash) 5 ml PO Q4H [facility] Last Admin: 04/10/17 13:49 Dose: Not Given Senna/Docusate Sodium (Senokot S 50 Mg-8.6 Mg) 1 tab PO HS PRN PRN Reason: Constipation Last Admin: 04/08/17 10:37 Dose: 1 tab Sertraline HCl (Zoloft) 50 mg PO DAILY [facility] Last Admin: 04/10/17 09:23 Dose: 50 mg Physical Exam - Constitutional Appears: Confused, Chronically Ill - Head Exam Head Exam: ATRAUMATIC, NORMAL INSPECTION - Eye Exam Eye Exam: Normal appearance, Periorbital tenderness - Neck Exam Neck exam: Positive for: Normal Inspection - Respiratory Exam Respiratory Exam: Decreased Breath Sounds, Rhonchi - Cardiovascular Exam Cardiovascular Exam: REGULAR RHYTHM, +S1 - GI/Abdominal Exam GI & Abdominal Exam: Distended, Soft - Extremities Exam Extremities exam: Positive for: pedal edema. Negative for: tenderness - Neurological Exam Neurological exam: Altered, Motor Sensory Deficit - Skin Skin Exam: Dry, Warm Results - Vital Signs Recent Vital Signs: Last Vital Signs Temp 98.5 F 04/10/17 07:15 Pulse 71 04/10/17 07:15 Resp 20 04/10/17 07:15 BP 119/74 04/10/17 07:15 Pulse Ox 99 04/10/17 07:15 - Labs Result Diagrams: 04/10/17 08:02 04/10/17 08:02 Labs: Laboratory Results - last 24 hr 04/09/17 04/09/17 04/10/17 16:45 21:11 07:26 WBC RBC Hgb Hct MCV MCH MCHC RDW Plt Count MPV Neut % (Auto) Lymph % (Auto) [place] % (Auto) Eos % (Auto) Baso % (Auto) Neut # Lymph # [place] # Eos # Baso # Neutrophils % (Manual) Lymphocytes % (Manual) Monocytes % (Manual) Platelet Estimate Polychromasia Hypochromasia (manual) Anisocytosis (manual) Microcytosis (manual) Ovalocytes Puncture Site pCO2 pO2 HCO3 ABG pH ABG Total CO2 ABG O2 Saturation ABG Base Excess ABG Hemoglobin ABG Carboxyhemoglobin POC ABG HHb (Measured) ABG Methemoglobin Yahir Test Hgb O2 Saturation Liter Flow Sodium Potassium Chloride Carbon Dioxide Anion Gap BUN Creatinine Est GFR ( Amer) Est GFR (Non-Af Amer) POC Glucose (mg/dL) 139 H 123 H 86 Random Glucose Calcium Phosphorus Magnesium Total Bilirubin AST ALT Alkaline Phosphatase Total Protein Albumin Globulin Albumin/Globulin Ratio 04/10/17 04/10/17 04/10/17 08:02 08:02 10:55 WBC 5.1 RBC 3.96 L Hgb 9.6 L Hct 30.6 L MCV 77.3 L MCH 24.3 L MCHC 31.5 L RDW 29.8 H Plt Count 85 L MPV 8.5 Neut % (Auto) 80.2 H Lymph % (Auto) 7.3 L [place] % (Auto) 9.3 Eos % (Auto) 2.7 Baso % (Auto) 0.5 Neut # 4.1 Lymph # 0.4 L [place] # 0.5 Eos # 0.1 Baso # 0.0 Neutrophils % (Manual) 85 H Lymphocytes % (Manual) 5 L Monocytes % (Manual) 10 Platelet Estimate Decreased L Polychromasia Slight Hypochromasia (manual) Moderate Anisocytosis (manual) Moderate Microcytosis (manual) Slight Ovalocytes Slight Puncture Site pCO2 pO2 HCO3 ABG pH ABG Total CO2 ABG O2 Saturation ABG Base Excess ABG Hemoglobin ABG Carboxyhemoglobin POC ABG HHb (Measured) ABG Methemoglobin Yahir Test Hgb O2 Saturation Liter Flow Sodium 135 Potassium 4.8 Chloride 101 Carbon Dioxide 28 Anion Gap 11 BUN 36 H Creatinine 2.6 H Est GFR ( Amer) 30 Est GFR (Non-Af Amer) 25 POC Glucose (mg/dL) 87 Random Glucose 77 Calcium 6.9 L Phosphorus 2.7 Magnesium 1.8 Total Bilirubin 0.6 AST 44 ALT 50 Alkaline Phosphatase 213 H Total Protein 4.8 L Albumin 1.7 L Globulin 3.1 Albumin/Globulin Ratio 0.5 L 04/10/17 12:50 WBC RBC Hgb Hct MCV MCH MCHC RDW Plt Count MPV Neut % (Auto) Lymph % (Auto) [place] % (Auto) Eos % (Auto) Baso % (Auto) Neut # Lymph # [place] # Eos # Baso # Neutrophils % (Manual) Lymphocytes % (Manual) Monocytes % (Manual) Platelet Estimate Polychromasia Hypochromasia (manual) Anisocytosis (manual) Microcytosis (manual) Ovalocytes Puncture Site L/b pCO2 39 pO2 82 HCO3 27.2 ABG pH 7.45 ABG Total CO2 28.3 H ABG O2 Saturation 97.6 ABG Base Excess 3.0 ABG Hemoglobin 12.9 ABG Carboxyhemoglobin 1.9 H POC ABG HHb (Measured) 2.3 ABG Methemoglobin 0.8 Yahir Test Na Hgb O2 Saturation 95.0 Liter Flow 3.0 Sodium Potassium Chloride Carbon Dioxide Anion Gap BUN Creatinine Est GFR ( Amer) Est GFR (Non-Af Amer) POC Glucose (mg/dL) Random Glucose Calcium Phosphorus Magnesium Total Bilirubin AST ALT Alkaline Phosphatase Total Protein Albumin Globulin Albumin/Globulin Ratio Assessment & Plan (1) SUZANNE (acute kidney injury) Status: Acute (2) Obstructive uropathy Status: Acute (3) CHF (congestive heart failure) Status: Acute (4) COPD (chronic obstructive pulmonary disease) Status: Acute (5) Sepsis Status: Acute (6) Lung cancer Status: Acute - Assessment and Plan (Free Text) Plan: Needs silverman catheter insertion will follow serial chemistries
--- NOTE | 2017-04-10 17:34 | CP.PCM.CON ---
History of Present Illness - History of Present Illness History of Present Illness: PLEASE SEE DICTATED REPORT Past Patient History - Past Medical History & Family History Past Medical History?: Yes Past Family History: Reviewed and not pertinent - Past Social History Smoking Status: Former Smoker Chewing Tobacco Use: No Cigar Use: No Alcohol: None Drugs: Denies Home Situation {Lives}: [facility] - CARDIAC Hx Congestive Heart Failure: Yes - PULMONARY Hx Chronic Obstructive Pulmonary Disease (COPD): Yes - ENDOCRINE/METABOLIC Hx Endocrine Disorders: Yes Hx Diabetes Mellitus Type 2: Yes - HEMATOLOGICAL/ONCOLOGICAL Hx Human Immunodeficiency Virus (HIV): Yes - MUSCULOSKELETAL/RHEUMATOLOGICAL Hx Arthritis: Yes Hx Falls: Yes Hx Fractures: Yes (left lower leg, wrist , hand) - PSYCHIATRIC Hx Substance Use: No - SURGICAL HISTORY Hx Surgeries: Yes Hx Orthopedic Surgery: Yes (right shoulder torn rotator cuff 3 yr ago) - ANESTHESIA Hx Anesthesia: Yes Hx Anesthesia Reactions: No Hx Malignant Hyperthermia: No Meds Allergies/Adverse Reactions: Allergies Allergy/AdvReac Type Severity Reaction Status Date / Time clopidogrel [From Plavix] Allergy Verified 03/08/17 13:31 seafood Allergy Uncoded 03/08/17 13:31 - Medications Medications: Current Medications Acetaminophen (Tylenol 325mg Tab) 650 mg PO Q6H PRN PRN Reason: Fever >100.4 F Last Admin: 03/22/17 10:15 Dose: 650 mg Albuterol/Ipratropium (Duoneb 3 Mg/0.5 Mg (3 Ml) Ud) 3 ml INH RQ6 PRN PRN Reason: Wheezing Benztropine Mesylate (Cogentin) 1 mg PO BID [facility] Last Admin: 04/10/17 09:25 Dose: 1 mg Emtricitabine/Tenofovir (Truvada 200 Mg-300 Mg) 1 tab PO DAILY [facility] Last Admin: 04/10/17 09:25 Dose: 1 tab Famotidine (Pepcid) 20 mg PO DAILY [facility] Last Admin: 04/10/17 09:23 Dose: 20 mg Ferrous Sulfate (Feosol) 325 mg PO DAILY [facility] Last Admin: 04/10/17 09:23 Dose: 325 mg Fluphenazine HCl (Prolixin) 5 mg PO BID [facility] Last Admin: 04/10/17 09:24 Dose: 5 mg Meropenem 500 mg/ Sodium (Chloride) 100 mls @ 100 mls/hr IVPB Q8 [facility] Last Admin: 04/10/17 13:48 Dose: 100 mls/hr Metronidazole (Flagyl) 500 mg in 100 mls @ 100 mls/hr IVPB Q8 [facility] Last Admin: 04/10/17 14:57 Dose: 100 mls/hr Insulin Aspart (Novolog) 0 unit SC ACHS [facility] PRN Reason: Protocol Last Admin: 04/10/17 12:07 Dose: Not Given Montelukast Sodium (Singulair) 10 mg PO HS [facility] Last Admin: 04/09/17 21:51 Dose: 10 mg Multivitamins (Hexavitamin) 1 tab PO DAILY [facility] Last Admin: 04/10/17 09:23 Dose: 1 tab Raltegravir (Isentress) 400 mg PO BID [facility] Last Admin: 04/10/17 09:24 Dose: 400 mg Saccharomyces Boulardii (Florastor) 250 mg PO BID [facility] Last Admin: 04/10/17 09:24 Dose: 250 mg Saliva Substitute (First Magic Mouthwash) 5 ml PO Q4H [facility] Last Admin: 04/10/17 13:49 Dose: Not Given Senna/Docusate Sodium (Senokot S 50 Mg-8.6 Mg) 1 tab PO HS PRN PRN Reason: Constipation Last Admin: 04/08/17 10:37 Dose: 1 tab Sertraline HCl (Zoloft) 50 mg PO DAILY [facility] Last Admin: 04/10/17 09:23 Dose: 50 mg Results - Vital Signs Recent Vital Signs: Last Vital Signs Temp 98.5 F 04/10/17 16:00 Pulse 84 04/10/17 16:00 Resp 20 04/10/17 16:00 BP 110/67 04/10/17 16:00 Pulse Ox 98 04/10/17 16:00 - Labs Result Diagrams: 04/14/17 07:41 04/14/17 07:41 Labs: Laboratory Results - last 24 hr 04/09/17 04/10/17 04/10/17 21:11 07:26 08:02 WBC 5.1 RBC 3.96 L Hgb 9.6 L Hct 30.6 L MCV 77.3 L MCH 24.3 L MCHC 31.5 L RDW 29.8 H Plt Count 85 L MPV 8.5 Neut % (Auto) 80.2 H Lymph % (Auto) 7.3 L Calhoun % (Auto) 9.3 Eos % (Auto) 2.7 Baso % (Auto) 0.5 Neut # 4.1 Lymph # 0.4 L Calhoun # 0.5 Eos # 0.1 Baso # 0.0 Neutrophils % (Manual) 85 H Lymphocytes % (Manual) 5 L Monocytes % (Manual) 10 Platelet Estimate Decreased L Polychromasia Slight Hypochromasia (manual) Moderate Anisocytosis (manual) Moderate Microcytosis (manual) Slight Ovalocytes Slight Puncture Site pCO2 pO2 HCO3 ABG pH ABG Total CO2 ABG O2 Saturation ABG Base Excess ABG Hemoglobin ABG Carboxyhemoglobin POC ABG HHb (Measured) ABG Methemoglobin Yahir Test Hgb O2 Saturation Liter Flow Sodium Potassium Chloride Carbon Dioxide Anion Gap BUN Creatinine Est GFR ( Amer) Est GFR (Non-Af Amer) POC Glucose (mg/dL) 123 H 86 Random Glucose Calcium Phosphorus Magnesium Total Bilirubin AST ALT Alkaline Phosphatase Total Protein Albumin Globulin Albumin/Globulin Ratio 04/10/17 04/10/17 04/10/17 08:02 10:55 12:50 WBC RBC Hgb Hct MCV MCH MCHC RDW Plt Count MPV Neut % (Auto) Lymph % (Auto) Calhoun % (Auto) Eos % (Auto) Baso % (Auto) Neut # Lymph # Calhoun # Eos # Baso # Neutrophils % (Manual) Lymphocytes % (Manual) Monocytes % (Manual) Platelet Estimate Polychromasia Hypochromasia (manual) Anisocytosis (manual) Microcytosis (manual) Ovalocytes Puncture Site L/b pCO2 39 pO2 82 HCO3 27.2 ABG pH 7.45 ABG Total CO2 28.3 H ABG O2 Saturation 97.6 ABG Base Excess 3.0 ABG Hemoglobin 12.9 ABG Carboxyhemoglobin 1.9 H POC ABG HHb (Measured) 2.3 ABG Methemoglobin 0.8 Yahir Test Na Hgb O2 Saturation 95.0 Liter Flow 3.0 Sodium 135 Potassium 4.8 Chloride 101 Carbon Dioxide 28 Anion Gap 11 BUN 36 H Creatinine 2.6 H Est GFR ( Amer) 30 Est GFR (Non-Af Amer) 25 POC Glucose (mg/dL) 87 Random Glucose 77 Calcium 6.9 L Phosphorus 2.7 Magnesium 1.8 Total Bilirubin 0.6 AST 44 ALT 50 Alkaline Phosphatase 213 H Total Protein 4.8 L Albumin 1.7 L Globulin 3.1 Albumin/Globulin Ratio 0.5 L 04/10/17 16:32 WBC RBC Hgb Hct MCV MCH MCHC RDW Plt Count MPV Neut % (Auto) Lymph % (Auto) Calhoun % (Auto) Eos % (Auto) Baso % (Auto) Neut # Lymph # Calhoun # Eos # Baso # Neutrophils % (Manual) Lymphocytes % (Manual) Monocytes % (Manual) Platelet Estimate Polychromasia Hypochromasia (manual) Anisocytosis (manual) Microcytosis (manual) Ovalocytes Puncture Site pCO2 pO2 HCO3 ABG pH ABG Total CO2 ABG O2 Saturation ABG Base Excess ABG Hemoglobin ABG Carboxyhemoglobin POC ABG HHb (Measured) ABG Methemoglobin Yahir Test Hgb O2 Saturation Liter Flow Sodium Potassium Chloride Carbon Dioxide Anion Gap BUN Creatinine Est GFR ( Amer) Est GFR (Non-Af Amer) POC Glucose (mg/dL) 74 Random Glucose Calcium Phosphorus Magnesium Total Bilirubin AST ALT Alkaline Phosphatase Total Protein Albumin Globulin Albumin/Globulin Ratio Assessment & Plan - Assessment and Plan (Free Text) Assessment: Imp renal failure anasrca edema of genitalia retention PLEASE SEE DICTATED REPORT - Date & Time Date: 04/10/17 Time: 17:34
[2017-04-10 18:55] LABS: RBC URINE 55 /hpf (0-3); URINE BACTERIA MANY (<OCC); URINE BILIRUBIN NEGATIVE (NEGATIVE); URINE BLOOD 3+ (NEGATIVE); URINE COLOR Amber (YELLOW); URINE GLUCOSE (UA) NORMAL (Normal); URINE KETONE NEGATIVE (NEGATIVE); URINE LEUKOCYTE ESTERASE 3+ Leu/uL (Negative); URINE PROTEIN 2+ mg/dL (NEGATIVE); URINE UROBILINOGEN NORMAL mg/dL (0.2-1.0); WBC CLUMPS MANY /hpf; WBC URINE 1531 /hpf (0-5)
[2017-04-11] MEDS: Mag&Al/Simet/Diphen/Lido 237 ML KIT PO SCH ×6 (00:07→20:15)
[2017-04-11] MEDS: metroNIDAZOLE IV 500 mg/100 ml 500 MG/100 ML BAG IVPB SCH ×3 (05:18→22:00)
[2017-04-11] MEDS: Meropenem 500 MG in Sodium Chloride 0.9% 100 ML IVPB SCH ×3 (06:47→22:02)
[2017-04-11 07:32] LABS: HEMATOCRIT 32.2 % (35.0-51.0); MEAN CELL VOLUME 77.6 fL (80.0-94.0); MEAN CORPUSCULAR HEMOGLOBIN 24.3 pg (27.0-31.0); MEAN CORPUSCULAR HGB CONC 31.3 g/dL (33.0-37.0); MEAN PLATELET VOLUME 8.4 fL (7.2-11.7); RED CELL DISTRIBUTION WIDTH 29.7 % (11.5-14.5); WHITE BLOOD COUNT 5.3 K/uL (4.8-10.8)
[2017-04-11 07:53] LABS: BILIRUBIN,TOTAL 0.6 mg/dL (0.2-1.3); MAGNESIUM 1.8 mg/dL (1.6-2.3); PHOSPHOROUS 3.2 mg/dL (2.5-4.5); TOTAL PROTEIN 4.8 g/dL (6.3-8.3)
[2017-04-11 08:09] LABS: ALB/GLOB RATIO 0.5 (1.0-2.1)
[2017-04-11] MEDS: (Novolog) Insulin Aspart, Recombinant 100 u/ml 10 ml vial SC SCH ×3 (08:41→22:01)
--- NOTE | 2017-04-11 09:35 | CP.PCM.PN ---
Subjective - Date & Time of Evaluation Date of Evaluation: 04/11/17 Time of Evaluation: 09:32 - Subjective Subjective: Price insertion done- but poor UO. no recording but nurses did not report much urine. Creat increased to 2.7 Remains anasarcic Lytes acceptable Responsive mental status but sluggish Objective - Vital Signs/Intake and Output Vital Signs (last 24 hours): Temp Pulse Resp BP Pulse Ox 98 F 70 20 108/71 94 L 04/11/17 07:51 04/11/17 07:51 04/11/17 07:51 04/11/17 07:51 04/11/17 07:51 Intake and Output: 04/11/17 04/11/17 06:59 18:59 Intake Total 200 Balance 200 - Medications Medications: Current Medications Acetaminophen (Tylenol 325mg Tab) 650 mg PO Q6H PRN PRN Reason: Fever >100.4 F Last Admin: 03/22/17 10:15 Dose: 650 mg Albuterol/Ipratropium (Duoneb 3 Mg/0.5 Mg (3 Ml) Ud) 3 ml INH RQ6 PRN PRN Reason: Wheezing Benztropine Mesylate (Cogentin) 1 mg PO BID [facility] Last Admin: 04/10/17 18:07 Dose: 1 mg Emtricitabine/Tenofovir (Truvada 200 Mg-300 Mg) 1 tab PO DAILY [facility] Last Admin: 04/10/17 09:25 Dose: 1 tab Famotidine (Pepcid) 20 mg PO DAILY [facility] Last Admin: 04/10/17 09:23 Dose: 20 mg Ferrous Sulfate (Feosol) 325 mg PO DAILY [facility] Last Admin: 04/10/17 09:23 Dose: 325 mg Fluphenazine HCl (Prolixin) 5 mg PO BID [facility] Last Admin: 04/10/17 18:08 Dose: 5 mg Meropenem 500 mg/ Sodium (Chloride) 100 mls @ 100 mls/hr IVPB Q8 [facility] Last Admin: 04/11/17 06:47 Dose: 100 mls/hr Metronidazole (Flagyl) 500 mg in 100 mls @ 100 mls/hr IVPB Q8 [facility] Last Admin: 04/11/17 05:18 Dose: 100 mls/hr Insulin Aspart (Novolog) 0 unit SC ACHS [facility] PRN Reason: Protocol Last Admin: 04/11/17 08:41 Dose: 3 unit Montelukast Sodium (Singulair) 10 mg PO HS [facility] Last Admin: 04/10/17 22:10 Dose: 10 mg Multivitamins (Hexavitamin) 1 tab PO DAILY [facility] Last Admin: 04/10/17 09:23 Dose: 1 tab Raltegravir (Isentress) 400 mg PO BID [facility] Last Admin: 04/10/17 18:08 Dose: 400 mg Saccharomyces Boulardii (Florastor) 250 mg PO BID [facility] Last Admin: 04/10/17 18:08 Dose: 250 mg Saliva Substitute (First Magic Mouthwash) 5 ml PO Q4H [facility] Last Admin: 04/11/17 08:40 Dose: 5 ml Senna/Docusate Sodium (Senokot S 50 Mg-8.6 Mg) 1 tab PO HS PRN PRN Reason: Constipation Last Admin: 04/08/17 10:37 Dose: 1 tab Sertraline HCl (Zoloft) 50 mg PO DAILY [facility] Last Admin: 04/10/17 09:23 Dose: 50 mg - Labs Labs: 04/11/17 07:08 04/11/17 07:08 - Constitutional Appears: No Acute Distress, Confused, Chronically Ill - Head Exam Head Exam: ATRAUMATIC, NORMAL INSPECTION - Eye Exam Eye Exam: EOMI, Normal appearance - Neck Exam Neck Exam: Normal Inspection. absent: Tenderness - Respiratory Exam Respiratory Exam: Decreased Breath Sounds, NORMAL BREATHING PATTERN - Cardiovascular Exam Cardiovascular Exam: REGULAR RHYTHM, +S1 - GI/Abdominal Exam GI & Abdominal Exam: Soft. absent: Tenderness - Extremities Exam Extremities Exam: Pedal Edema. absent: Tenderness - Neurological Exam Neurological Exam: Awake, CN II-XII Intact - Skin Skin Exam: Dry, Warm Assessment and Plan (1) SUZANNE (acute kidney injury) Status: Acute (2) Obstructive uropathy Status: Acute (3) CHF (congestive heart failure) Status: Acute (4) COPD (chronic obstructive pulmonary disease) Status: Acute (5) Sepsis Status: Acute (6) Lung cancer Status: Acute (7) HIV antibody positive Status: Acute - Assessment and Plan (Free Text) Plan: Will check serial chemistries; urine Na Trial IV lasix
[2017-04-11] MEDS: Multiple Vitamins Tab PO SCH (10:58)
[2017-04-11] MEDS: Docusate-Senna 50 mg-8.6 mg Tab PO PRN (10:58)
[2017-04-11] MEDS: Saccharomyces Boulardi 250 mg Cap PO SCH ×2 (10:58→17:26)
[2017-04-11] MEDS: Emtricitabine-Tenofovir 200 mg-300 mg Tab PO SCH (10:59)
--- NOTE | 2017-04-11 15:05 | CP.PCM.PN ---
Subjective - Date & Time of Evaluation Date of Evaluation: 04/11/17 Time of Evaluation: 09:20 - Subjective Subjective: PGY2 medicine progress note for Dr. Stanley Patient seen and examined. Patient more alert than yesterday. Minimal urine output in silverman catheter despite initial output yesterday. Attempted to advance catheter further with no improvement in output. Discussed with Dr. Paula who will assess catheter today. Objective - Vital Signs/Intake and Output Vital Signs (last 24 hours): Temp Pulse Resp BP Pulse Ox 98 F 69 20 104/60 94 L 04/11/17 07:51 04/11/17 12:10 04/11/17 07:51 04/11/17 12:10 04/11/17 07:51 Intake and Output: 04/11/17 04/11/17 06:59 18:59 Intake Total 200 Balance 200 - Medications Medications: Current Medications Acetaminophen (Tylenol 325mg Tab) 650 mg PO Q6H PRN PRN Reason: Fever >100.4 F Last Admin: 03/22/17 10:15 Dose: 650 mg Albuterol/Ipratropium (Duoneb 3 Mg/0.5 Mg (3 Ml) Ud) 3 ml INH RQ6 PRN PRN Reason: Wheezing Benztropine Mesylate (Cogentin) 1 mg PO BID [facility] Last Admin: 04/11/17 10:58 Dose: 1 mg Emtricitabine/Tenofovir (Truvada 200 Mg-300 Mg) 1 tab PO DAILY [facility] Last Admin: 04/11/17 10:59 Dose: 1 tab Famotidine (Pepcid) 20 mg PO DAILY [facility] Last Admin: 04/11/17 10:59 Dose: 20 mg Ferrous Sulfate (Feosol) 325 mg PO DAILY [facility] Last Admin: 04/11/17 10:59 Dose: 325 mg Fluphenazine HCl (Prolixin) 5 mg PO BID [facility] Last Admin: 04/11/17 11:00 Dose: 5 mg Furosemide (Lasix) 40 mg IVP BID [facility] Stop: 04/12/17 10:16 Last Admin: 04/11/17 11:17 Dose: 40 mg Meropenem 500 mg/ Sodium (Chloride) 100 mls @ 100 mls/hr IVPB Q8 [facility] Last Admin: 04/11/17 13:42 Dose: 100 mls/hr Metronidazole (Flagyl) 500 mg in 100 mls @ 100 mls/hr IVPB Q8 [facility] Last Admin: 04/11/17 05:18 Dose: 100 mls/hr Insulin Aspart (Novolog) 0 unit SC ACHS [facility] PRN Reason: Protocol Last Admin: 04/11/17 12:03 Dose: 2 unit Montelukast Sodium (Singulair) 10 mg PO HS [facility] Last Admin: 04/10/17 22:10 Dose: 10 mg Multivitamins (Hexavitamin) 1 tab PO DAILY [facility] Last Admin: 04/11/17 10:58 Dose: 1 tab Raltegravir (Isentress) 400 mg PO BID [facility] Last Admin: 04/11/17 10:58 Dose: 400 mg Saccharomyces Boulardii (Florastor) 250 mg PO BID [facility] Last Admin: 04/11/17 10:58 Dose: 250 mg Saliva Substitute (First Magic Mouthwash) 5 ml PO Q4H [facility] Last Admin: 04/11/17 12:01 Dose: Not Given Senna/Docusate Sodium (Senokot S 50 Mg-8.6 Mg) 1 tab PO HS PRN PRN Reason: Constipation Last Admin: 04/11/17 10:58 Dose: 1 tab Sertraline HCl (Zoloft) 50 mg PO DAILY [facility] Last Admin: 04/11/17 10:58 Dose: 50 mg - Labs Labs: 04/11/17 07:08 04/11/17 07:08 - Constitutional Appears: No Acute Distress, Chronically Ill, Other (drowsy) - Head Exam Head Exam: ATRAUMATIC, NORMOCEPHALIC - Eye Exam Eye Exam: EOMI - ENT Exam ENT Exam: Mucous Membranes Moist - Respiratory Exam Respiratory Exam: Decreased Breath Sounds (b/l) - Cardiovascular Exam Cardiovascular Exam: +S1, +S2 - GI/Abdominal Exam GI & Abdominal Exam: Soft, Normal Bowel Sounds. absent: Tenderness - Exam Exam: Scrotal Swelling, Bladder Distension - Extremities Exam Extremities Exam: Pedal Edema (b/l pitting edema) - Neurological Exam Neurological Exam: Awake - Skin Skin Exam: Warm Additional comments: anasarca Assessment and Plan - Assessment and Plan (Free Text) Assessment: Obstructive uropathy 04/11: minimal urine output per silverman. Attempted to advance silverman without improvement in urine output. Discussed with Dr. Paula- will investigate and potentially exchange silverman today 04/10: bladder scan with >1000cc urine 04/09/17: bladder US- complex cystic mass left and inferior to bladder, 812 cc urine present scrotum and penis is edematous and meatus cannot be identified Dr. Bailey Paula consulted for urinary retention, will see patient today to insert silverman catheter will keep NPO in case patient needs OR procedure Change in Mental Status Waxing and waning alertness- patient more alert today Head CT: no mass effect, edema, bleed. atrophy seen ABG 04/10: pH 7.45, pCO2 39, pO2 82 Diarrhea patient has been on multiple IV antibiotics and is now having large volume diarrhea will check for C. diff, culture starting flagyl IVPB prophylactically Anasarca albumin 1.7, may be third spacing SUZANNE may be partially due to urinary obstruction trial of lasix today will continue to monitor chemistries and watch for urine output Dyspnea- Secondary to COPD v. CHF v. Lung CA v. Pneumonia Patient would benefit from BiPAP however he prefers nasal canula at this time. Encourage patient to wear BiPAP Mycoplasma negative Blood cultures negative 03/29: CXR shows minimal change interval from previous study; chronic changes in LML and LLL. Sepsis secondary to UTI New silverman placed 04/10/17 but with poor urine output-may be obstructed. urine sample was collected, sent for UA, culture Continue Meropenem 500mg (started on 03/31), will F/U with ID regarding duration of treatment. Bands decreasing. Will repeat urine culture Started Florastor 04/05 Patient was started on Primaxin on 03/24 and was discontinued 03/31 Currently afebrile, WBC 4.2 Silverman was inserted on 03/22 - Silverman was discontinued 04/01. N Urine culture from 03/22- Proteus Mirabilis Blood culture from 03/21- Proteus Mirabilis Repeat blood culture 03/29: No growth after 5 days Pancytopenia Transfused 2 units PRBC 04/05. Now Hgb 10.1 Microcytic Anemia- chronic disease v. iron deficiency 04/04: Hgb 8.1 04/02: Per Dr. Connell, consider GI eval once acute illness resolves Feosol 325mg PO daily Likely secondary to sepsis or HIV Hold off Lovenox Per Dr. Lane do not transfuse platelets unless <20 Continue to monitor Mouth Sores Magic Mouthwash Q4H Electrolyte deficiency Prior Hx. Currently stable. Monitor daily, supplement as needed Obstructive Sleep Apnea BiPAP ordered for night time use- patient should go to [facility] with [facility] at night He has been non-compliant with BiPAP. Encourage use. History of COPD On n/c. Duonebs as needed PRN Singulair 10mg PO daily History of HIV % CD4 cells 59, Absolute CD4 158 ; % [id number] 8, Absolute CD8 23 04/02: ID Consulted, Dr La, f/u recs - Truvada 1 tab PO daily (home med) Isentress 400mg PO BID (home med) HTN BP stable/low, continue to monitor. BP meds held due to hypotension Previous Echo done on 02/26/17- EF 62% (see full report) HLD 04/03: Stopped Crestor 20mg PO HS 2/2 elevated LFTs Transaminitis Stable Crestor held Cont to monitor Psychiatric history- questionable Schizophrenia Fluphenazine 5mg PO BID Benztropine Mesylate 1mg PO BID Zoloft 50mg PO daily Discontinued Atarax and Trazodone due to lethargy Constipation Senna/Docusate Sodium 1 tab PO HS PRN Constipation Encourage increased water intale Transient hyperglycemia likely secondary to steroid administration ISS Continue to monitor No documented history of DM Accuchecks A1c 6.2 Prophylaxis Pepcid 20mg PO daily No chemical VTE prophylaxis due to thrombocytopenia PT Eval and Treat Disposition Upon discharge patient will need BiPAP at night. Patient will benefit from additional counseling. Advance diet as tolerated All medical management as per Dr. Stanley
[2017-04-11] MEDS ORDERED: Dextrose 50% SYRINGE Inj (50 ml) ONE (16:31)
[2017-04-11] MEDS ORDERED: Dextrose 50% SYRINGE Inj (50 ml) IV PRN ×2 (16:48→16:54)
--- NOTE | 2017-04-11 16:53 | PCM.RRT ---
GRAPHIC ILLUSTRATOR Nurses Assessment - Situation GRAPHIC ILLUSTRATOR Responder Arrival Time: 16:30 GRAPHIC ILLUSTRATOR Called By: RN New IV Insertion Tolerance: Good - Respiratory Oxygen Delivery Method: BiPAP Received Nebulizer Treatments: Yes Secretions Suctioned?: No - Ventilator Settings SAO2 %: 97 - Respiratory Oxygen Delivery Method: BiPAP @% (16-4-55) - Constitutional Appears: Confused Additional Comments: Diaphoretic - Head Head Exam: NORMAL INSPECTION - Respiratory Exam Respiratory Exam: Clear to Ausculation Bilateral, NORMAL BREATHING PATTERN - Cardiovascular Exam Cardiovascular Exam: REGULAR RHYTHM, +S1, +S2. absent: Bradycardia, Tachycardia - GI/Abdominal Exam GI & Abdominal Exam: Soft, Normal Bowel Sounds. absent: Distended, Tenderness Plan - Assessment of Findings&Treatment Plan Rapid response was called at approximately 1630. Spoke to nurse on the phone approximately 3 minutes prior to rapid response. Nurse said patient's blood glucose was 20 and that she was giving 1 amp of D50. After this the nurse called the rapid and upon arrival the patient's status was unchanged. Vitals were checked and stable: BP 100/63, P 69, O2 99% RA, T 97.5. Patients glucose rechecked and found to be 190.
--- NOTE | 2017-04-11 18:47 | CP.PCM.PN ---
Subjective - Date & Time of Evaluation Date of Evaluation: 04/11/17 Time of Evaluation: 16:10 - Subjective Subjective: Had DOCUMENTATION IMPROVEMENT SPECIALIST for hypoglycemia; feeling better Objective - Vital Signs/Intake and Output Vital Signs (last 24 hours): Temp Pulse Resp BP Pulse Ox 97.3 F L 65 22 100/63 95 04/11/17 15:00 04/11/17 15:15 04/11/17 15:00 04/11/17 18:05 04/11/17 15:15 Intake and Output: 04/11/17 04/11/17 06:59 18:59 Intake Total 500 880 Output Total 700 0 Balance -200 880 - Medications Medications: Current Medications Acetaminophen (Tylenol 325mg Tab) 650 mg PO Q6H PRN PRN Reason: Fever >100.4 F Last Admin: 03/22/17 10:15 Dose: 650 mg Albuterol/Ipratropium (Duoneb 3 Mg/0.5 Mg (3 Ml) Ud) 3 ml INH RQ6 PRN PRN Reason: Wheezing Benztropine Mesylate (Cogentin) 1 mg PO BID [facility] Last Admin: 04/11/17 17:31 Dose: 1 mg Dextrose (Dextrose 50% Inj) 50 ml IV Q6H PRN PRN Reason: Low blood sugar Emtricitabine/Tenofovir (Truvada 200 Mg-300 Mg) 1 tab PO DAILY [facility] Last Admin: 04/11/17 10:59 Dose: 1 tab Famotidine (Pepcid) 20 mg PO DAILY [facility] Last Admin: 04/11/17 10:59 Dose: 20 mg Ferrous Sulfate (Feosol) 325 mg PO DAILY [facility] Last Admin: 04/11/17 10:59 Dose: 325 mg Fluphenazine HCl (Prolixin) 5 mg PO BID [facility] Last Admin: 04/11/17 17:31 Dose: 5 mg Furosemide (Lasix) 40 mg IVP BID [facility] Stop: 04/12/17 10:16 Last Admin: 04/11/17 18:05 Dose: 40 mg Meropenem 500 mg/ Sodium (Chloride) 100 mls @ 100 mls/hr IVPB Q8 [facility] Last Admin: 04/11/17 13:42 Dose: 100 mls/hr Metronidazole (Flagyl) 500 mg in 100 mls @ 100 mls/hr IVPB Q8 [facility] Last Admin: 04/11/17 15:14 Dose: 100 mls/hr Insulin Aspart (Novolog) 0 unit SC ACHS [facility] PRN Reason: Protocol Montelukast Sodium (Singulair) 10 mg PO HS [facility] Last Admin: 04/10/17 22:10 Dose: 10 mg Multivitamins (Hexavitamin) 1 tab PO DAILY [facility] Last Admin: 04/11/17 10:58 Dose: 1 tab Raltegravir (Isentress) 400 mg PO BID [facility] Last Admin: 04/11/17 17:31 Dose: 400 mg Saccharomyces Boulardii (Florastor) 250 mg PO BID [facility] Last Admin: 04/11/17 17:26 Dose: 250 mg Saliva Substitute (First Magic Mouthwash) 5 ml PO Q4H [facility] Last Admin: 04/11/17 16:30 Dose: 5 ml Senna/Docusate Sodium (Senokot S 50 Mg-8.6 Mg) 1 tab PO HS PRN PRN Reason: Constipation Last Admin: 04/11/17 10:58 Dose: 1 tab Sertraline HCl (Zoloft) 50 mg PO DAILY [facility] Last Admin: 04/11/17 10:58 Dose: 50 mg - Labs Labs: 04/11/17 07:08 04/11/17 07:08 - Head Exam Head Exam: ATRAUMATIC - Eye Exam Eye Exam: Normal appearance - ENT Exam ENT Exam: Mucous Membranes Dry - Neck Exam Neck Exam: Normal Inspection - Respiratory Exam Respiratory Exam: NORMAL BREATHING PATTERN - Cardiovascular Exam Cardiovascular Exam: +S1, +S2 - GI/Abdominal Exam GI & Abdominal Exam: Normal Bowel Sounds Assessment and Plan (1) Thrombocytopenia Assessment & Plan: HIV and sepsis improving daily Status: Acute (2) Anemia Assessment & Plan: iron deficiency and chronic disease consider IV ferrlecit when infection clears Status: Acute
[2017-04-11 22:58] LABS: RBC URINE 174 /hpf (0-3); URINE BACTERIA MOD (<OCC); URINE BILIRUBIN NEGATIVE (NEGATIVE); URINE BLOOD 3+ (NEGATIVE); URINE COLOR Yellow (YELLOW); URINE GLUCOSE (UA) NORMAL (Normal); URINE KETONE TRACE mg/dL (NEGATIVE); URINE LEUKOCYTE ESTERASE 3+ Leu/uL (Negative); URINE PROTEIN 2+ mg/dL (NEGATIVE); WBC CLUMPS MANY /hpf; WBC URINE 2064 /hpf (0-5)
[2017-04-12] MEDS: Mag&Al/Simet/Diphen/Lido 237 ML KIT PO SCH ×7 (00:04→23:40)
[2017-04-12] MEDS: metroNIDAZOLE IV 500 mg/100 ml 500 MG/100 ML BAG IVPB SCH (05:10)
[2017-04-12] MEDS: Meropenem 500 MG in Sodium Chloride 0.9% 100 ML IVPB SCH ×3 (06:16→21:53)
[2017-04-12 08:16] LABS: BASO % 0.5 % (0.0-2.0); EOS # 0.3 K/uL (0.0-0.7); HEMATOCRIT 32.2 % (35.0-51.0); LYMPH # 0.4 K/uL (1.0-4.3); LYMPH % 8.9 % (20.0-40.0); MEAN CELL VOLUME 78.3 fL (80.0-94.0); MEAN CORPUSCULAR HEMOGLOBIN 24.5 pg (27.0-31.0); MEAN CORPUSCULAR HGB CONC 31.3 g/dL (33.0-37.0); MEAN PLATELET VOLUME 8.3 fL (7.2-11.7); MONO # 0.4 K/uL (0.0-0.8); MONO % 8.9 % (0.0-10.0); NRBC % 0.1 % (0.0-2.0); PLATELET COUNT 117 K/uL (130-400); RED CELL DISTRIBUTION WIDTH 29.6 % (11.5-14.5); WHITE BLOOD COUNT 4.8 K/uL (4.8-10.8)
[2017-04-12] MEDS: (Novolog) Insulin Aspart, Recombinant 100 u/ml 10 ml vial SC SCH ×4 (08:26→21:52)
[2017-04-12 08:55] LABS: POTASSIUM 3.3 mmol/L (3.6-5.2)
[2017-04-12 08:57] LABS: ALB/GLOB RATIO 0.5 (1.0-2.1); BILIRUBIN,TOTAL 0.5 mg/dL (0.2-1.3); PHOSPHOROUS 3.5 mg/dL (2.5-4.5); TOTAL PROTEIN 4.9 g/dL (6.3-8.3)
[2017-04-12 08:58] LABS: CALCIUM 6.6 mg/dl (8.6-10.4); MAGNESIUM 1.7 mg/dL (1.6-2.3)
[2017-04-12 10:01] LABS: EOSINOPHIL 7 % (0-4); NEUTROPHIL 71 % (50-75); REACTIVE LYMPHOCYTES 1 % (0-0); TOTAL CELLS COUNTED 100
[2017-04-12] MEDS: Saccharomyces Boulardi 250 mg Cap PO SCH ×2 (10:02→17:56)
[2017-04-12] MEDS: Multiple Vitamins Tab PO SCH (10:02)
[2017-04-12] MEDS: Docusate-Senna 50 mg-8.6 mg Tab PO PRN (10:02)
[2017-04-12] MEDS: Emtricitabine-Tenofovir 200 mg-300 mg Tab PO SCH (10:36)
[2017-04-12] MEDS ORDERED: Albumin Human 25% (12.5 gm/50 ml) IV SCH (11:45)
--- NOTE | 2017-04-12 11:57 | PCM.URO ---
Urology Progress Note - Subjective Abdominal Pain: No Flank Pain: No Nausea: No Voiding Well: No Hematuria: No Good Stream: No Chest Pain: No Fever & Chills: No Other: catheter in place, with low output - Objective Lab Results Last 24 Hours: Laboratory Results - last 24 hr 04/11/17 04/11/17 04/11/17 14:58 16:27 16:36 WBC RBC Hgb Hct MCV MCH MCHC RDW Plt Count MPV Neut % (Auto) Lymph % (Auto) [place] % (Auto) Eos % (Auto) Baso % (Auto) Neut # Lymph # [place] # Eos # Baso # Neutrophils % (Manual) Band Neutrophils % Lymphocytes % (Manual) Reactive Lymphs % Monocytes % (Manual) Eosinophils % (Manual) Platelet Estimate Hypochromasia (manual) Poikilocytosis (manual Anisocytosis (manual) Target Cells Sodium Potassium Chloride Carbon Dioxide Anion Gap BUN Creatinine Est GFR ( Amer) Est GFR (Non-Af Amer) POC Glucose (mg/dL) < 20 L* 190 H Random Glucose Calcium Phosphorus Magnesium Total Bilirubin AST ALT Alkaline Phosphatase Total Protein Albumin Globulin Albumin/Globulin Ratio Urine Color Urine Clarity Urine pH Ur Specific [employer] Urine Protein Urine Glucose (UA) Urine Ketones Urine Blood Urine Nitrate Urine Bilirubin Urine Urobilinogen Ur Leukocyte Esterase Urine WBC (Auto) Urine RBC (Auto) Urine WBC Clumps (Auto) Ur Squamous Epith Cells Urine Bacteria Ur Random Sodium C. difficile Ag & Toxin Negative 04/11/17 04/11/17 04/11/17 20:51 22:45 22:46 WBC RBC Hgb Hct MCV MCH MCHC RDW Plt Count MPV Neut % (Auto) Lymph % (Auto) [place] % (Auto) Eos % (Auto) Baso % (Auto) Neut # Lymph # [place] # Eos # Baso # Neutrophils % (Manual) Band Neutrophils % Lymphocytes % (Manual) Reactive Lymphs % Monocytes % (Manual) Eosinophils % (Manual) Platelet Estimate Hypochromasia (manual) Poikilocytosis (manual Anisocytosis (manual) Target Cells Sodium Potassium Chloride Carbon Dioxide Anion Gap BUN Creatinine Est GFR ( Amer) Est GFR (Non-Af Amer) POC Glucose (mg/dL) 87 Random Glucose Calcium Phosphorus Magnesium Total Bilirubin AST ALT Alkaline Phosphatase Total Protein Albumin Globulin Albumin/Globulin Ratio Urine Color Yellow Urine Clarity Turbid Urine pH 8.0 Ur Specific [employer] 1.004 Urine Protein 2+ H Urine Glucose (UA) Normal Urine Ketones Trace Urine Blood 3+ H Urine Nitrate Negative Urine Bilirubin Negative Urine Urobilinogen 4.0 Ur Leukocyte Esterase 3+ H Urine WBC (Auto) 2064 H Urine RBC (Auto) 174 H Urine WBC Clumps (Auto) Many H Ur Squamous Epith Cells 3 Urine Bacteria Mod H Ur Random Sodium 50 C. difficile Ag & Toxin 04/12/17 04/12/17 04/12/17 00:17 04:39 07:18 WBC RBC Hgb Hct MCV MCH MCHC RDW Plt Count MPV Neut % (Auto) Lymph % (Auto) [place] % (Auto) Eos % (Auto) Baso % (Auto) Neut # Lymph # [place] # Eos # Baso # Neutrophils % (Manual) Band Neutrophils % Lymphocytes % (Manual) Reactive Lymphs % Monocytes % (Manual) Eosinophils % (Manual) Platelet Estimate Hypochromasia (manual) Poikilocytosis (manual Anisocytosis (manual) Target Cells Sodium Potassium Chloride Carbon Dioxide Anion Gap BUN Creatinine Est GFR ( Amer) Est GFR (Non-Af Amer) POC Glucose (mg/dL) 119 H 92 206 H Random Glucose Calcium Phosphorus Magnesium Total Bilirubin AST ALT Alkaline Phosphatase Total Protein Albumin Globulin Albumin/Globulin Ratio Urine Color Urine Clarity Urine pH Ur [employer] Urine Protein Urine Glucose (UA) Urine Ketones Urine Blood Urine Nitrate Urine Bilirubin Urine Urobilinogen Ur Leukocyte Esterase Urine WBC (Auto) Urine RBC (Auto) Urine WBC Clumps (Auto) Ur Squamous Epith Cells Urine Bacteria Ur Random Sodium C. difficile Ag & Toxin 04/12/17 04/12/17 04/12/17 08:01 08:01 11:14 WBC 4.8 RBC 4.11 L Hgb 10.1 L Hct 32.2 L MCV 78.3 L MCH 24.5 L MCHC 31.3 L RDW 29.6 H Plt Count 117 L MPV 8.3 Neut % (Auto) 75.7 H Lymph % (Auto) 8.9 L [place] % (Auto) 8.9 Eos % (Auto) 6.0 H Baso % (Auto) 0.5 Neut # 3.6 Lymph # 0.4 L [place] # 0.4 Eos # 0.3 Baso # 0.0 Neutrophils % (Manual) 71 Band Neutrophils % 5 H Lymphocytes % (Manual) 11 L Reactive Lymphs % 1 H Monocytes % (Manual) 5 Eosinophils % (Manual) 7 H Platelet Estimate Slightly decreased L Hypochromasia (manual) Slight Poikilocytosis (manual Slight Anisocytosis (manual) Slight Target Cells Slight Sodium 140 Potassium 3.3 L Chloride 104 Carbon Dioxide 27 Anion Gap 12 BUN 36 H Creatinine 2.6 H Est GFR ( Amer) 30 Est GFR (Non-Af Amer) 25 POC Glucose (mg/dL) 54 L Random Glucose 69 L Calcium 6.6 L Phosphorus 3.5 Magnesium 1.7 Total Bilirubin 0.5 AST 40 ALT 45 Alkaline Phosphatase 230 H Total Protein 4.9 L Albumin 1.7 L Globulin 3.2 Albumin/Globulin Ratio 0.5 L Urine Color Urine Clarity Urine pH Ur [employer] Urine Protein Urine Glucose (UA) Urine Ketones Urine Blood Urine Nitrate Urine Bilirubin Urine Urobilinogen Ur Leukocyte Esterase Urine WBC (Auto) Urine RBC (Auto) Urine WBC Clumps (Auto) Ur Squamous Epith Cells Urine Bacteria Ur Random Sodium C. difficile Ag & Toxin Intake & Output: Intake & Output 04/11/17 04/12/17 04/12/17 18:59 06:59 18:59 Intake Total 880 1050 Output Total 0 100 Balance 880 950 Intake: Intake, IV Amount 400 450 right portacath 400 450 Oral 480 600 Output: Urine 0 100 Urethral (Price) 0 100 Other: # Bowel Movements 1 0 Vital Signs: Vital Signs - 24 hr 04/11/17 04/11/17 04/11/17 12:10 15:00 15:15 Temperature 97.3 F L Pulse Rate 69 67 65 Respiratory 22 Rate Blood Pressure 104/60 103/64 101/60 O2 Sat by Pulse 97 95 Oximetry 04/11/17 04/12/17 04/12/17 18:05 00:00 08:28 Temperature 97.6 F 97.6 F Pulse Rate 75 70 Respiratory 20 20 Rate Blood Pressure 100/63 111/60 96/64 L O2 Sat by Pulse 100 100 Oximetry 04/12/17 10:03 Temperature Pulse Rate Respiratory Rate Blood Pressure 129/80 O2 Sat by Pulse Oximetry - Physical Exam Abdominal Exam: Soft. absent: Non-Distended Urinary Catheter Draining Well: No (low output) Urine Color: Clear, Yellow Extremities: Lower Extremity Edema: Bilateral - Male Scrotum: Edema - Plan Catheter Care: Yes (catheter changed to larger caliber) Additional Information: imp: anasarca. cirrhosis. oliguria. edema of genitalia, obscuring urethral meatus. P: new catheter inserted - Date & Time of Note Date: 04/12/17 Time: 11:56
--- NOTE | 2017-04-12 13:11 | CP.PCM.CON ---
History of Present Illness - History of Present Illness History of Present Illness: Palliative consult Requested by Wilber ROBLEDO Reason: Goals of care Patient is admitted from [place] with SOB and altered mental status on 03/08/17. The initial CXR was significant for pneumonia and atelectasis/ patient treated with Flagyl and Merem IV. UTI was diagnosed and treated. The bladder US suggested urine retention of > 800 cc and Price cath inserted. Patient was also seen by Psychiatrist and is on psych meds for his Schizoaffective disorder. On 04/11/17 [facility] called for BS of 20. After 50% Dextrose IV patient BS brooke to 190. PMH: COPD, Lung CA, CHF, HIV, cocainSoc. Hx: S use, schizoaffective disorder Soc. Hx: divirced, [place] resident, has a sister Preet lim [phone] Fam. Hx: Unable to obtain from patient due to condition Review of Systems - Review of Systems All systems: reviewed and no additional remarkable complaints except Review of Systems: ROS obtaind from nursing. Nursing reports BS of 20 , improved after D 50% IV bolus. Past Patient History - Past Medical History & Family History Past Medical History?: Yes Past Family History: Reviewed and not pertinent - Past Social History Smoking Status: Former Smoker Chewing Tobacco Use: No Cigar Use: No Alcohol: None Drugs: Denies Home Situation {Lives}: Snf - CARDIAC Hx Congestive Heart Failure: Yes - PULMONARY Hx Chronic Obstructive Pulmonary Disease (COPD): Yes - ENDOCRINE/METABOLIC Hx Endocrine Disorders: Yes Hx Diabetes Mellitus Type 2: Yes - HEMATOLOGICAL/ONCOLOGICAL Hx Human Immunodeficiency Virus (HIV): Yes - MUSCULOSKELETAL/RHEUMATOLOGICAL Hx Arthritis: Yes Hx Falls: Yes Hx Fractures: Yes (left lower leg, wrist , hand) - PSYCHIATRIC Hx Substance Use: No - SURGICAL HISTORY Hx Surgeries: Yes Hx Orthopedic Surgery: Yes (right shoulder torn rotator cuff 3 yr ago) - ANESTHESIA Hx Anesthesia: Yes Hx Anesthesia Reactions: No Hx Malignant Hyperthermia: No Meds Allergies/Adverse Reactions: Allergies Allergy/AdvReac Type Severity Reaction Status Date / Time clopidogrel [From Plavix] Allergy Verified 03/08/17 13:31 seafood Allergy Uncoded 03/08/17 13:31 - Medications Medications: Current Medications Acetaminophen (Tylenol 325mg Tab) 650 mg PO Q6H PRN PRN Reason: Fever >100.4 F Last Admin: 03/22/17 10:15 Dose: 650 mg Albuterol/Ipratropium (Duoneb 3 Mg/0.5 Mg (3 Ml) Ud) 3 ml INH RQ6 PRN PRN Reason: Wheezing Benztropine Mesylate (Cogentin) 1 mg PO BID [facility] Last Admin: 04/12/17 10:02 Dose: 1 mg Dextrose (Dextrose 50% Inj) 50 ml IV Q6H PRN PRN Reason: Low blood sugar Emtricitabine/Tenofovir (Truvada 200 Mg-300 Mg) 1 tab PO DAILY [facility] Last Admin: 04/12/17 10:36 Dose: 1 tab Famotidine (Pepcid) 20 mg PO DAILY [facility] Last Admin: 04/12/17 10:02 Dose: 20 mg Ferrous Sulfate (Feosol) 325 mg PO DAILY [facility] Last Admin: 04/12/17 10:02 Dose: 325 mg Fluphenazine HCl (Prolixin) 5 mg PO BID [facility] Last Admin: 04/12/17 10:02 Dose: 5 mg Meropenem 500 mg/ Sodium (Chloride) 100 mls @ 100 mls/hr IVPB Q8 [facility] Last Admin: 04/12/17 06:16 Dose: 100 mls/hr Dextrose (Dextrose 10% In Water) 1,000 mls @ 40 mls/hr IV .Q24H [facility] Last Admin: 04/12/17 12:37 Dose: 40 mls/hr Albumin Human (Albumin Human 25% (12.5 Gm/50 Ml)) 50 mls @ 50 mls/hr IV Q24H [facility] Stop: 04/14/17 13:59 Insulin Aspart (Novolog) 0 unit SC ACHS [facility] PRN Reason: Protocol Last Admin: 04/12/17 11:40 Dose: Not Given Montelukast Sodium (Singulair) 10 mg PO HS [facility] Last Admin: 04/11/17 22:01 Dose: 10 mg Multivitamins (Hexavitamin) 1 tab PO DAILY [facility] Last Admin: 04/12/17 10:02 Dose: 1 tab Raltegravir (Isentress) 400 mg PO BID [facility] Last Admin: 04/12/17 10:02 Dose: 400 mg Saccharomyces Boulardii (Florastor) 250 mg PO BID [facility] Last Admin: 04/12/17 10:02 Dose: 250 mg Saliva Substitute (First Magic Mouthwash) 5 ml PO Q4H [facility] Last Admin: 04/12/17 12:37 Dose: 5 ml Senna/Docusate Sodium (Senokot S 50 Mg-8.6 Mg) 1 tab PO HS PRN PRN Reason: Constipation Last Admin: 04/12/17 10:02 Dose: 1 tab Sertraline HCl (Zoloft) 50 mg PO DAILY [facility] Last Admin: 04/12/17 10:02 Dose: 50 mg Physical Exam - Constitutional Appears: Chronically Ill - Head Exam Head Exam: ATRAUMATIC, NORMAL INSPECTION, NORMOCEPHALIC - Eye Exam Eye Exam: EOMI, Normal appearance, PERRL Pupil Exam: NORMAL ACCOMODATION - ENT Exam ENT Exam: Mucous Membranes Moist, Normal Exam - Neck Exam Neck exam: Positive for: Normal Inspection - Cardiovascular Exam Cardiovascular Exam: Tachycardia, REGULAR RHYTHM - GI/Abdominal Exam GI & Abdominal Exam: Normal Bowel Sounds, Soft - Rectal Exam Rectal Exam: Deferred - Exam Additional comments: Price cath for urinary retention - Extremities Exam Extremities exam: Positive for: pedal edema - Back Exam Back exam: NORMAL INSPECTION - Neurological Exam Neurological exam: Alert, Altered - Psychiatric Exam Psychiatric exam: Flat Affect - Skin Skin Exam: Pallor Results - Vital Signs Recent Vital Signs: Last Vital Signs Temp 97.6 F 04/12/17 08:28 Pulse 70 04/12/17 08:28 Resp 20 04/12/17 08:28 BP 129/80 04/12/17 10:03 Pulse Ox 100 04/12/17 08:28 - Labs Result Diagrams: 04/12/17 08:01 04/12/17 08:01 Labs: Laboratory Results - last 24 hr 04/11/17 04/11/17 04/11/17 14:58 16:27 16:36 WBC RBC Hgb Hct MCV MCH MCHC RDW Plt Count MPV Neut % (Auto) Lymph % (Auto) [place] % (Auto) Eos % (Auto) Baso % (Auto) Neut # Lymph # [place] # Eos # Baso # Neutrophils % (Manual) Band Neutrophils % Lymphocytes % (Manual) Reactive Lymphs % Monocytes % (Manual) Eosinophils % (Manual) Platelet Estimate Hypochromasia (manual) Poikilocytosis (manual Anisocytosis (manual) Target Cells Sodium Potassium Chloride Carbon Dioxide Anion Gap BUN Creatinine Est GFR ( Amer) Est GFR (Non-Af Amer) POC Glucose (mg/dL) < 20 L* 190 H Random Glucose Calcium Phosphorus Magnesium Total Bilirubin AST ALT Alkaline Phosphatase Total Protein Albumin Globulin Albumin/Globulin Ratio Urine Color Urine Clarity Urine pH Ur Specific [place] Urine Protein Urine Glucose (UA) Urine Ketones Urine Blood Urine Nitrate Urine Bilirubin Urine Urobilinogen Ur Leukocyte Esterase Urine WBC (Auto) Urine RBC (Auto) Urine WBC Clumps (Auto) Ur Squamous Epith Cells Urine Bacteria Ur Random Sodium C. difficile Ag & Toxin Negative 04/11/17 04/11/17 04/11/17 20:51 22:45 22:46 WBC RBC Hgb Hct MCV MCH MCHC RDW Plt Count MPV Neut % (Auto) Lymph % (Auto) [place] % (Auto) Eos % (Auto) Baso % (Auto) Neut # Lymph # [place] # Eos # Baso # Neutrophils % (Manual) Band Neutrophils % Lymphocytes % (Manual) Reactive Lymphs % Monocytes % (Manual) Eosinophils % (Manual) Platelet Estimate Hypochromasia (manual) Poikilocytosis (manual Anisocytosis (manual) Target Cells Sodium Potassium Chloride Carbon Dioxide Anion Gap BUN Creatinine Est GFR ( Amer) Est GFR (Non-Af Amer) POC Glucose (mg/dL) 87 Random Glucose Calcium Phosphorus Magnesium Total Bilirubin AST ALT Alkaline Phosphatase Total Protein Albumin Globulin Albumin/Globulin Ratio Urine Color Yellow Urine Clarity Turbid Urine pH 8.0 Ur Specific [place] 1.004 Urine Protein 2+ H Urine Glucose (UA) Normal Urine Ketones Trace Urine Blood 3+ H Urine Nitrate Negative Urine Bilirubin Negative Urine Urobilinogen 4.0 Ur Leukocyte Esterase 3+ H Urine WBC (Auto) 2064 H Urine RBC (Auto) 174 H Urine WBC Clumps (Auto) Many H Ur Squamous Epith Cells 3 Urine Bacteria Mod H Ur Random Sodium 50 C. difficile Ag & Toxin 04/12/17 04/12/17 04/12/17 00:17 04:39 07:18 WBC RBC Hgb Hct MCV MCH MCHC RDW Plt Count MPV Neut % (Auto) Lymph % (Auto) [place] % (Auto) Eos % (Auto) Baso % (Auto) Neut # Lymph # [place] # Eos # Baso # Neutrophils % (Manual) Band Neutrophils % Lymphocytes % (Manual) Reactive Lymphs % Monocytes % (Manual) Eosinophils % (Manual) Platelet Estimate Hypochromasia (manual) Poikilocytosis (manual Anisocytosis (manual) Target Cells Sodium Potassium Chloride Carbon Dioxide Anion Gap BUN Creatinine Est GFR ( Amer) Est GFR (Non-Af Amer) POC Glucose (mg/dL) 119 H 92 206 H Random Glucose Calcium Phosphorus Magnesium Total Bilirubin AST ALT Alkaline Phosphatase Total Protein Albumin Globulin Albumin/Globulin Ratio Urine Color Urine Clarity Urine pH Ur Specific [place] Urine Protein Urine Glucose (UA) Urine Ketones Urine Blood Urine Nitrate Urine Bilirubin Urine Urobilinogen Ur Leukocyte Esterase Urine WBC (Auto) Urine RBC (Auto) Urine WBC Clumps (Auto) Ur Squamous Epith Cells Urine Bacteria Ur Random Sodium C. difficile Ag & Toxin 04/12/17 04/12/17 04/12/17 08:01 08:01 11:14 WBC 4.8 RBC 4.11 L Hgb 10.1 L Hct 32.2 L MCV 78.3 L MCH 24.5 L MCHC 31.3 L RDW 29.6 H Plt Count 117 L MPV 8.3 Neut % (Auto) 75.7 H Lymph % (Auto) 8.9 L [place] % (Auto) 8.9 Eos % (Auto) 6.0 H Baso % (Auto) 0.5 Neut # 3.6 Lymph # 0.4 L [place] # 0.4 Eos # 0.3 Baso # 0.0 Neutrophils % (Manual) 71 Band Neutrophils % 5 H Lymphocytes % (Manual) 11 L Reactive Lymphs % 1 H Monocytes % (Manual) 5 Eosinophils % (Manual) 7 H Platelet Estimate Slightly decreased L Hypochromasia (manual) Slight Poikilocytosis (manual Slight Anisocytosis (manual) Slight Target Cells Slight Sodium 140 Potassium 3.3 L Chloride 104 Carbon Dioxide 27 Anion Gap 12 BUN 36 H Creatinine 2.6 H Est GFR ( Amer) 30 Est GFR (Non-Af Amer) 25 POC Glucose (mg/dL) 54 L Random Glucose 69 L Calcium 6.6 L Phosphorus 3.5 Magnesium 1.7 Total Bilirubin 0.5 AST 40 ALT 45 Alkaline Phosphatase 230 H Total Protein 4.9 L Albumin 1.7 L Globulin 3.2 Albumin/Globulin Ratio 0.5 L Urine Color Urine Clarity Urine pH Ur Specific [place] Urine Protein Urine Glucose (UA) Urine Ketones Urine Blood Urine Nitrate Urine Bilirubin Urine Urobilinogen Ur Leukocyte Esterase Urine WBC (Auto) Urine RBC (Auto) Urine WBC Clumps (Auto) Ur Squamous Epith Cells Urine Bacteria Ur Random Sodium C. difficile Ag & Toxin 04/12/17 04/12/17 11:29 11:58 WBC RBC Hgb Hct MCV MCH MCHC RDW Plt Count MPV Neut % (Auto) Lymph % (Auto) [place] % (Auto) Eos % (Auto) Baso % (Auto) Neut # Lymph # [place] # Eos # Baso # Neutrophils % (Manual) Band Neutrophils % Lymphocytes % (Manual) Reactive Lymphs % Monocytes % (Manual) Eosinophils % (Manual) Platelet Estimate Hypochromasia (manual) Poikilocytosis (manual Anisocytosis (manual) Target Cells Sodium Potassium Chloride Carbon Dioxide Anion Gap BUN Creatinine Est GFR ( Amer) Est GFR (Non-Af Amer) POC Glucose (mg/dL) 61 L 74 Random Glucose Calcium Phosphorus Magnesium Total Bilirubin AST ALT Alkaline Phosphatase Total Protein Albumin Globulin Albumin/Globulin Ratio Urine Color Urine Clarity Urine pH Ur Specific [place] Urine Protein Urine Glucose (UA) Urine Ketones Urine Blood Urine Nitrate Urine Bilirubin Urine Urobilinogen Ur Leukocyte Esterase Urine WBC (Auto) Urine RBC (Auto) Urine WBC Clumps (Auto) Ur Squamous Epith Cells Urine Bacteria Ur Random Sodium C. difficile Ag & Toxin Assessment & Plan - Assessment and Plan (Free Text) Assessment: Palliative consult There is no Advance directive on chart, PPS 10%, ROS unobtainable due to lethargy. ROS obtained from nursing. I reviewed medical records, all diagnostic studies, examined patient in bed and discussed his presentation with Doctor Merino. Patient is alert, but very lethargic. Patient reacts to stimuli very briefly than goes back to sleep. Patient is not answering questions. Patient looks chronically ill. There is large edema to upper and lower extremities, Alb 1.7 and is being replaced. Breath sounds diminished, there is no accessory muscle use. Abdomen soft, active bowel sounds. Price at bed side, UO 700 cc/24 hr. IV hydration. BP 129/80, HR 70, afebrile. Very limited active and passive ROM to all extremities. Hb 10.8. Patient is fallowed by Doctor Connell and Ion supplements suggested. I reached out to patient's sister at the number on the chart X 2, but her phone was not in service at this time. Impression * Patient is a chronically ill man with pneumonia and atelectasis on admission * There is a lethargy making it hard to assess mental status, but it seems to me that patient has no decision making capacity * Patient's wishes for the end of life care are not known * Quality of life significantly limited by poor breathing ability and overall poor health * Edema and low Alb put patient at high risk for skin break down * Very limited mobility * needs max assistance with ADLs * Lack of family support Suggestion * Symptomatic Tx * promote skin integrity * Assist with ADLs * Correct low Alb I will continue to reach out to patient's sister for goals of care and Code status discussion. Thank you for consulting Palliative care
[2017-04-12] MEDS ORDERED: Dextrose 50% SYRINGE Inj (50 ml) IV PRN (13:25)
--- NOTE | 2017-04-12 13:49 | CP.PCM.PN ---
Subjective - Date & Time of Evaluation Date of Evaluation: 04/12/17 Time of Evaluation: 09:10 - Subjective Subjective: PGY2 medicine progress note for Dr. Stanley: Patient seen and examined. Patient more alert today. Patient states he does not feel well and upon further questioning he states "I don't feel well in my mind." Patient cannot elaborate on what that means to him. Patient states he often is not hungry and has poor appetite. Objective - Vital Signs/Intake and Output Vital Signs (last 24 hours): Temp Pulse Resp BP Pulse Ox 97.6 F 70 20 129/80 100 04/12/17 08:28 04/12/17 08:28 04/12/17 08:28 04/12/17 10:03 04/12/17 08:28 Intake and Output: 04/12/17 04/12/17 06:59 18:59 Intake Total 1050 Output Total 100 Balance 950 - Medications Medications: Current Medications Acetaminophen (Tylenol 325mg Tab) 650 mg PO Q6H PRN PRN Reason: Fever >100.4 F Last Admin: 03/22/17 10:15 Dose: 650 mg Albuterol/Ipratropium (Duoneb 3 Mg/0.5 Mg (3 Ml) Ud) 3 ml INH RQ6 PRN PRN Reason: Wheezing Benztropine Mesylate (Cogentin) 1 mg PO BID [facility] Last Admin: 04/12/17 10:02 Dose: 1 mg Dextrose (Dextrose 50% Inj) 50 ml IV Q6H PRN PRN Reason: Low blood sugar Emtricitabine/Tenofovir (Truvada 200 Mg-300 Mg) 1 tab PO DAILY [facility] Last Admin: 04/12/17 10:36 Dose: 1 tab Famotidine (Pepcid) 20 mg PO DAILY [facility] Last Admin: 04/12/17 10:02 Dose: 20 mg Ferrous Sulfate (Feosol) 325 mg PO DAILY [facility] Last Admin: 04/12/17 10:02 Dose: 325 mg Fluphenazine HCl (Prolixin) 5 mg PO BID [facility] Last Admin: 04/12/17 10:02 Dose: 5 mg Meropenem 500 mg/ Sodium (Chloride) 100 mls @ 100 mls/hr IVPB Q8 [facility] Last Admin: 04/12/17 06:16 Dose: 100 mls/hr Dextrose (Dextrose 10% In Water) 1,000 mls @ 40 mls/hr IV .Q24H [facility] Last Admin: 04/12/17 12:37 Dose: 40 mls/hr Albumin Human (Albumin Human 25% (12.5 Gm/50 Ml)) 50 mls @ 50 mls/hr IV Q24H [facility] Stop: 04/14/17 13:59 Insulin Aspart (Novolog) 0 unit SC ACHS [facility] PRN Reason: Protocol Last Admin: 04/12/17 11:40 Dose: Not Given Montelukast Sodium (Singulair) 10 mg PO HS [facility] Last Admin: 04/11/17 22:01 Dose: 10 mg Multivitamins (Hexavitamin) 1 tab PO DAILY [facility] Last Admin: 04/12/17 10:02 Dose: 1 tab Raltegravir (Isentress) 400 mg PO BID [facility] Last Admin: 04/12/17 10:02 Dose: 400 mg Saccharomyces Boulardii (Florastor) 250 mg PO BID [facility] Last Admin: 04/12/17 10:02 Dose: 250 mg Saliva Substitute (First Magic Mouthwash) 5 ml PO Q4H [facility] Last Admin: 04/12/17 12:37 Dose: 5 ml Senna/Docusate Sodium (Senokot S 50 Mg-8.6 Mg) 1 tab PO HS PRN PRN Reason: Constipation Last Admin: 04/12/17 10:02 Dose: 1 tab Sertraline HCl (Zoloft) 50 mg PO DAILY [facility] Last Admin: 04/12/17 10:02 Dose: 50 mg - Labs Labs: 04/12/17 08:01 04/12/17 08:01 - Constitutional Appears: No Acute Distress, Chronically Ill - Head Exam Head Exam: NORMOCEPHALIC - Eye Exam Eye Exam: EOMI - ENT Exam ENT Exam: Mucous Membranes Moist - Respiratory Exam Respiratory Exam: Chest Wall Tenderness, Decreased Breath Sounds Additional comments: right chest port - Cardiovascular Exam Cardiovascular Exam: +S1, +S2 - GI/Abdominal Exam GI & Abdominal Exam: Soft, Normal Bowel Sounds. absent: Tenderness - Exam Exam: Scrotal Swelling Additional comments: silverman catheter - Extremities Exam Extremities Exam: Pedal Edema (2+ b/l) - Neurological Exam Neurological Exam: Awake. absent: Oriented x3 - Skin Skin Exam: Dry, Warm Assessment and Plan - Assessment and Plan (Free Text) Assessment: Elevated creatinine, R/O Obstructive uropathy 04/12: minimal output per silverman. Per nursing, urine is leaking around silverman and last bladder scan showed 12mL in bladder. Creatinine unchanged. Silverman catheter was changed yesterday by Dr. Paula 04/11: minimal urine output per silverman. Attempted to advance silverman without improvement in urine output. Discussed with Dr. Paula- will investigate and potentially exchange silverman today 04/10: bladder scan with >1000cc urine 04/09/17: bladder US- complex cystic mass left and inferior to bladder, 812 cc urine present scrotum and penis is edematous and meatus cannot be identified Dr. Bailey Paula consulted for urinary retention, will see patient today to insert silverman catheter will keep NPO in case patient needs OR procedure Nephrology, Dr. Domínguez, on the case- help appreciated Sepsis secondary to UTI Urine culture from 04/10/17 negative for growth bands 5 New silverman placed 04/10/17 but with poor urine output-may be obstructed. urine sample was collected, sent for UA, culture Continue Meropenem 500mg (started on 03/31), will F/U with ID regarding duration of treatment Started Florastor 04/05 Patient was started on Primaxin on 03/24 and was discontinued 03/31 Currently afebrile, WBC 4.2 Silverman was inserted on 03/22 - Silverman was discontinued 04/01. N Urine culture from 03/22- Proteus Mirabilis Blood culture from 03/21- Proteus Mirabilis Repeat blood culture 03/29: No growth after 5 days Hypoglycemia patient with two hypoglycemic episodes. Starting D10 @ 40cc/h Change in Mental Status Waxing and waning alertness- patient more alert today Head CT: no mass effect, edema, bleed. atrophy seen ABG 04/10: pH 7.45, pCO2 39, pO2 82 Diarrhea patient has been on multiple IV antibiotics and is now having large volume diarrhea 04/12/17: stopping flagyl, C. diff negative Anasarca albumin 1.7, may be third spacing 04/12: will give albumin once daily x 3 doses Dyspnea- Secondary to COPD v. CHF v. Lung CA v. Pneumonia Patient would benefit from BiPAP however he prefers nasal canula at this time. Encourage patient to wear BiPAP Mycoplasma negative Blood cultures negative 03/29: CXR shows minimal change interval from previous study; chronic changes in LML and LLL. Pancytopenia Transfused 2 units PRBC 04/05. Now Hgb 10.1 Microcytic Anemia- chronic disease v. iron deficiency 04/04: Hgb 8.1 04/02: Per Dr. Connell, consider GI eval once acute illness resolves Feosol 325mg PO daily Likely secondary to sepsis or HIV Hold off Lovenox Per Dr. Connell do not transfuse platelets unless <20 Continue to monitor Mouth Sores Magic Mouthwash Q4H Electrolyte deficiency Prior Hx. Currently stable. Monitor daily, supplement as needed Obstructive Sleep Apnea BiPAP ordered for night time use- patient should go to [facility] with BIPAP at night He has been non-compliant with BiPAP. Encourage use. History of COPD On n/c. Duonebs as needed PRN Singulair 10mg PO daily History of HIV % CD4 cells 59, Absolute CD4 158 ; % [id number] 8, Absolute CD8 23 04/02: ID Consulted, Dr La, f/u recs - Truvada 1 tab PO daily (home med) Isentress 400mg PO BID (home med) HTN BP stable/low, continue to monitor. BP meds held due to hypotension Previous Echo done on 02/26/17- EF 62% (see full report) HLD 04/03: Stopped Crestor 20mg PO HS 2/2 elevated LFTs Transaminitis Stable Crestor held Cont to monitor Psychiatric history- questionable Schizophrenia Fluphenazine 5mg PO BID Benztropine Mesylate 1mg PO BID Zoloft 50mg PO daily Discontinued Atarax and Trazodone due to lethargy Transient hyperglycemia likely secondary to steroid administration ISS Continue to monitor No documented history of DM Accuchecks A1c 6.2 Prophylaxis Pepcid 20mg PO daily No chemical VTE prophylaxis due to thrombocytopenia PT Eval and Treat Palliative consult, Katy Kramer- help appreciated All medical management as per Dr. Stanley
--- NOTE | 2017-04-12 14:42 | CP.PCM.PN ---
Subjective - Date & Time of Evaluation Date of Evaluation: 04/12/17 Time of Evaluation: 14:40 - Subjective Subjective: Uo not recorded as urine leaking around silverman Bladder scan shows normal amount urine now Remains on IV lasix Creat same - 2.6; K at 3.3 Objective - Vital Signs/Intake and Output Vital Signs (last 24 hours): Temp Pulse Resp BP Pulse Ox 97.6 F 70 20 129/80 100 04/12/17 08:28 04/12/17 08:28 04/12/17 08:28 04/12/17 10:03 04/12/17 08:28 Intake and Output: 04/12/17 04/12/17 06:59 18:59 Intake Total 1050 Output Total 100 Balance 950 - Medications Medications: Current Medications Acetaminophen (Tylenol 325mg Tab) 650 mg PO Q6H PRN PRN Reason: Fever >100.4 F Last Admin: 03/22/17 10:15 Dose: 650 mg Albuterol/Ipratropium (Duoneb 3 Mg/0.5 Mg (3 Ml) Ud) 3 ml INH RQ6 PRN PRN Reason: Wheezing Benztropine Mesylate (Cogentin) 1 mg PO BID [facility] Last Admin: 04/12/17 10:02 Dose: 1 mg Dextrose (Dextrose 50% Inj) 50 ml IV Q6H PRN PRN Reason: Low blood sugar Emtricitabine/Tenofovir (Truvada 200 Mg-300 Mg) 1 tab PO DAILY [facility] Last Admin: 04/12/17 10:36 Dose: 1 tab Famotidine (Pepcid) 20 mg PO DAILY [facility] Last Admin: 04/12/17 10:02 Dose: 20 mg Ferrous Sulfate (Feosol) 325 mg PO DAILY [facility] Last Admin: 04/12/17 10:02 Dose: 325 mg Fluphenazine HCl (Prolixin) 5 mg PO BID [facility] Last Admin: 04/12/17 10:02 Dose: 5 mg Meropenem 500 mg/ Sodium (Chloride) 100 mls @ 100 mls/hr IVPB Q8 [facility] Last Admin: 04/12/17 06:16 Dose: 100 mls/hr Dextrose (Dextrose 10% In Water) 1,000 mls @ 40 mls/hr IV .Q24H [facility] Last Admin: 04/12/17 12:37 Dose: 40 mls/hr Albumin Human (Albumin Human 25% (12.5 Gm/50 Ml)) 50 mls @ 50 mls/hr IV Q24H [facility] Stop: 04/14/17 13:59 Last Admin: 04/12/17 13:42 Dose: 50 mls/hr Insulin Aspart (Novolog) 0 unit SC ACHS [facility] PRN Reason: Protocol Last Admin: 04/12/17 11:40 Dose: Not Given Montelukast Sodium (Singulair) 10 mg PO HS [facility] Last Admin: 04/11/17 22:01 Dose: 10 mg Multivitamins (Hexavitamin) 1 tab PO DAILY [facility] Last Admin: 04/12/17 10:02 Dose: 1 tab Raltegravir (Isentress) 400 mg PO BID [facility] Last Admin: 04/12/17 10:02 Dose: 400 mg Saccharomyces Boulardii (Florastor) 250 mg PO BID [facility] Last Admin: 04/12/17 10:02 Dose: 250 mg Saliva Substitute (First Magic Mouthwash) 5 ml PO Q4H [facility] Last Admin: 04/12/17 12:37 Dose: 5 ml Senna/Docusate Sodium (Senokot S 50 Mg-8.6 Mg) 1 tab PO HS PRN PRN Reason: Constipation Last Admin: 04/12/17 10:02 Dose: 1 tab Sertraline HCl (Zoloft) 50 mg PO DAILY [facility] Last Admin: 04/12/17 10:02 Dose: 50 mg - Labs Labs: 04/12/17 08:01 04/12/17 08:01 - Constitutional Appears: No Acute Distress, Chronically Ill - Head Exam Head Exam: ATRAUMATIC, NORMAL INSPECTION - Eye Exam Eye Exam: EOMI, Normal appearance - Neck Exam Neck Exam: Normal Inspection. absent: Tenderness - Respiratory Exam Respiratory Exam: Clear to Ausculation Bilateral, NORMAL BREATHING PATTERN - Cardiovascular Exam Cardiovascular Exam: REGULAR RHYTHM, +S1 - GI/Abdominal Exam GI & Abdominal Exam: Soft. absent: Tenderness - Extremities Exam Extremities Exam: Pedal Edema, Tenderness - Neurological Exam Neurological Exam: Awake, CN II-XII Intact - Skin Skin Exam: Dry, Warm Assessment and Plan (1) SUZANNE (acute kidney injury) Status: Acute (2) Obstructive uropathy Status: Acute (3) CHF (congestive heart failure) Status: Acute (4) COPD (chronic obstructive pulmonary disease) Status: Acute (5) Sepsis Status: Acute (6) Lung cancer Status: Acute (7) HIV antibody positive Status: Acute - Assessment and Plan (Free Text) Plan: Continue IV lasix at reduced dose Serial chemistries- monitor SUZANNE Replete K
--- NOTE | 2017-04-12 15:54 | CP.PCM.PN ---
Subjective - Date & Time of Evaluation Date of Evaluation: 04/12/17 Time of Evaluation: 08:00 - Subjective Subjective: no fever remains lethargic urine +++ wbc's on board Objective - Vital Signs/Intake and Output Vital Signs (last 24 hours): Temp Pulse Resp BP Pulse Ox 97.6 F 70 20 129/80 100 04/12/17 08:28 04/12/17 08:28 04/12/17 08:28 04/12/17 10:03 04/12/17 08:28 Intake and Output: 04/12/17 04/12/17 06:59 18:59 Intake Total 1050 Output Total 100 300 Balance 950 -300 - Medications Medications: Current Medications Acetaminophen (Tylenol 325mg Tab) 650 mg PO Q6H PRN PRN Reason: Fever >100.4 F Last Admin: 03/22/17 10:15 Dose: 650 mg Albuterol/Ipratropium (Duoneb 3 Mg/0.5 Mg (3 Ml) Ud) 3 ml INH RQ6 PRN PRN Reason: Wheezing Benztropine Mesylate (Cogentin) 1 mg PO BID [facility] Last Admin: 04/12/17 10:02 Dose: 1 mg Dextrose (Dextrose 50% Inj) 50 ml IV Q6H PRN PRN Reason: Low blood sugar Emtricitabine/Tenofovir (Truvada 200 Mg-300 Mg) 1 tab PO DAILY [facility] Last Admin: 04/12/17 10:36 Dose: 1 tab Famotidine (Pepcid) 20 mg PO DAILY [facility] Last Admin: 04/12/17 10:02 Dose: 20 mg Ferrous Sulfate (Feosol) 325 mg PO DAILY [facility] Last Admin: 04/12/17 10:02 Dose: 325 mg Fluphenazine HCl (Prolixin) 5 mg PO BID [facility] Last Admin: 04/12/17 10:02 Dose: 5 mg Meropenem 500 mg/ Sodium (Chloride) 100 mls @ 100 mls/hr IVPB Q8 [facility] Last Admin: 04/12/17 06:16 Dose: 100 mls/hr Dextrose (Dextrose 10% In Water) 1,000 mls @ 40 mls/hr IV .Q24H [facility] Last Admin: 04/12/17 12:37 Dose: 40 mls/hr Albumin Human (Albumin Human 25% (12.5 Gm/50 Ml)) 50 mls @ 50 mls/hr IV Q24H [facility] Stop: 04/14/17 13:59 Last Admin: 04/12/17 13:42 Dose: 50 mls/hr Insulin Aspart (Novolog) 0 unit SC ACHS [facility] PRN Reason: Protocol Last Admin: 04/12/17 11:40 Dose: Not Given Montelukast Sodium (Singulair) 10 mg PO HS [facility] Last Admin: 04/11/17 22:01 Dose: 10 mg Multivitamins (Hexavitamin) 1 tab PO DAILY [facility] Last Admin: 04/12/17 10:02 Dose: 1 tab Raltegravir (Isentress) 400 mg PO BID [facility] Last Admin: 04/12/17 10:02 Dose: 400 mg Saccharomyces Boulardii (Florastor) 250 mg PO BID [facility] Last Admin: 04/12/17 10:02 Dose: 250 mg Saliva Substitute (First Magic Mouthwash) 5 ml PO Q4H [facility] Last Admin: 04/12/17 12:37 Dose: 5 ml Senna/Docusate Sodium (Senokot S 50 Mg-8.6 Mg) 1 tab PO HS PRN PRN Reason: Constipation Last Admin: 04/12/17 10:02 Dose: 1 tab Sertraline HCl (Zoloft) 50 mg PO DAILY [facility] Last Admin: 04/12/17 10:02 Dose: 50 mg - Labs Labs: 04/12/17 08:01 04/12/17 08:01 - Constitutional Appears: Confused, Cachectic, Chronically Ill - Head Exam Head Exam: NORMOCEPHALIC - Eye Exam Eye Exam: PERRL - ENT Exam ENT Exam: Mucous Membranes Dry - Neck Exam Neck Exam: absent: Lymphadenopathy - Respiratory Exam Respiratory Exam: Decreased Breath Sounds - Cardiovascular Exam Cardiovascular Exam: REGULAR RHYTHM - GI/Abdominal Exam GI & Abdominal Exam: Distended, Soft - Rectal Exam Rectal Exam: Deferred - Exam Exam: NORMAL INSPECTION Assessment and Plan (1) Anemia Status: Acute (2) CHF (congestive heart failure) Status: Acute (3) COPD (chronic obstructive pulmonary disease) Status: Acute (4) Change in mental status Status: Acute (5) Hypokalemia Status: Acute (6) Sepsis Status: Acute (7) Chest pain Status: Acute
[2017-04-12] MEDS: EMTRICITABINE 200 MG CAP PO SCH (16:58)
[2017-04-13] MEDS: Mag&Al/Simet/Diphen/Lido 237 ML KIT PO SCH ×6 (04:22→23:58)
[2017-04-13] MEDS: Meropenem 500 MG in Sodium Chloride 0.9% 100 ML IVPB SCH ×3 (05:22→22:24)
[2017-04-13] MEDS: (Novolog) Insulin Aspart, Recombinant 100 u/ml 10 ml vial SC SCH ×4 (07:46→22:25)
[2017-04-13] MEDS: Multiple Vitamins Tab PO SCH (10:39)
[2017-04-13] MEDS: Saccharomyces Boulardi 250 mg Cap PO SCH ×2 (10:39→17:34)
[2017-04-13 11:25] LABS: BASO % 0.6 % (0.0-2.0); EOS # 0.3 K/uL (0.0-0.7); EOS % 4.9 % (0.0-4.0); HEMATOCRIT 32.3 % (35.0-51.0); LYMPH # 0.5 K/uL (1.0-4.3); LYMPH % 8.6 % (20.0-40.0); MEAN CELL VOLUME 78.5 fL (80.0-94.0); MEAN CORPUSCULAR HEMOGLOBIN 24.4 pg (27.0-31.0); MEAN CORPUSCULAR HGB CONC 31.1 g/dL (33.0-37.0); MEAN PLATELET VOLUME 8.4 fL (7.2-11.7); MONO # 0.5 K/uL (0.0-0.8); MONO % 9.7 % (0.0-10.0); NRBC % 0.2 % (0.0-2.0); PLATELET COUNT 120 K/uL (130-400); RED CELL DISTRIBUTION WIDTH 29.1 % (11.5-14.5); WHITE BLOOD COUNT 5.5 K/uL (4.8-10.8)
[2017-04-13 11:40] LABS: POTASSIUM 3.1 mmol/L (3.6-5.2)
[2017-04-13 11:42] LABS: ALB/GLOB RATIO 0.6 (1.0-2.1); BILIRUBIN,TOTAL 0.4 mg/dL (0.2-1.3); CALCIUM 6.7 mg/dl (8.6-10.4); PHOSPHOROUS 3.5 mg/dL (2.5-4.5); TOTAL PROTEIN 4.5 g/dL (6.3-8.3)
--- NOTE | 2017-04-13 11:42 | CP.PCM.PN ---
Subjective - Date & Time of Evaluation Date of Evaluation: 04/13/17 Time of Evaluation: 11:39 - Subjective Subjective: Notes reviewed Comfortable appearing in bed Does not respond well Does not answer questions Unable to obtain much history ROS unobtainable due to above Objective - Vital Signs/Intake and Output Vital Signs (last 24 hours): Temp Pulse Resp BP Pulse Ox 98.5 F 71 20 95/63 L 99 04/13/17 00:00 04/13/17 00:00 04/13/17 00:00 04/13/17 08:37 04/13/17 00:00 Intake and Output: 04/13/17 04/13/17 06:59 18:59 Intake Total 1360 Output Total 650 Balance 710 - Medications Medications: Current Medications Acetaminophen (Tylenol 325mg Tab) 650 mg PO Q6H PRN PRN Reason: Fever >100.4 F Last Admin: 04/13/17 10:37 Dose: 650 mg Albuterol/Ipratropium (Duoneb 3 Mg/0.5 Mg (3 Ml) Ud) 3 ml INH RQ6 PRN PRN Reason: Wheezing Benztropine Mesylate (Cogentin) 1 mg PO BID [facility] Last Admin: 04/13/17 10:39 Dose: 1 mg Dextrose (Dextrose 50% Inj) 50 ml IV Q6H PRN PRN Reason: Low blood sugar Emtricitabine (Emtriva) 200 mg PO Q48H [facility] Last Admin: 04/12/17 16:58 Dose: 200 mg Famotidine (Pepcid) 20 mg PO DAILY [facility] Last Admin: 04/13/17 10:40 Dose: 20 mg Ferrous Sulfate (Feosol) 325 mg PO DAILY [facility] Last Admin: 04/13/17 10:38 Dose: 325 mg Fluphenazine HCl (Prolixin) 5 mg PO BID [facility] Last Admin: 04/13/17 10:38 Dose: 5 mg Meropenem 500 mg/ Sodium (Chloride) 100 mls @ 100 mls/hr IVPB Q8 [facility] Last Admin: 04/13/17 05:22 Dose: 100 mls/hr Dextrose (Dextrose 10% In Water) 1,000 mls @ 40 mls/hr IV .Q24H [facility] Last Admin: 04/12/17 12:37 Dose: 40 mls/hr Albumin Human (Albumin Human 25% (12.5 Gm/50 Ml)) 50 mls @ 50 mls/hr IV Q24H [facility] Stop: 04/14/17 13:59 Last Admin: 04/12/17 13:42 Dose: 50 mls/hr Insulin Aspart (Novolog) 0 unit SC ACHS [facility] PRN Reason: Protocol Last Admin: 04/13/17 07:46 Dose: Not Given Montelukast Sodium (Singulair) 10 mg PO HS [facility] Last Admin: 04/12/17 21:53 Dose: 10 mg Multivitamins (Hexavitamin) 1 tab PO DAILY [facility] Last Admin: 04/13/17 10:39 Dose: 1 tab Raltegravir (Isentress) 400 mg PO BID [facility] Last Admin: 04/13/17 10:38 Dose: 400 mg Saccharomyces Boulardii (Florastor) 250 mg PO BID [facility] Last Admin: 04/13/17 10:39 Dose: 250 mg Saliva Substitute (First Magic Mouthwash) 5 ml PO Q4H [facility] Last Admin: 04/13/17 08:35 Dose: 5 ml Senna/Docusate Sodium (Senokot S 50 Mg-8.6 Mg) 1 tab PO HS PRN PRN Reason: Constipation Last Admin: 04/12/17 10:02 Dose: 1 tab Sertraline HCl (Zoloft) 50 mg PO DAILY [facility] Last Admin: 04/13/17 10:39 Dose: 50 mg Tenofovir Disoproxil Fumarate (Viread) 300 mg PO Q48H [facility] Last Admin: 04/12/17 16:58 Dose: 300 mg - Labs Labs: 04/13/17 11:12 04/12/17 08:01 - Constitutional Appears: Confused, Chronically Ill - ENT Exam ENT Exam: Mucous Membranes Moist - Respiratory Exam Respiratory Exam: Rales, Rhonchi - Cardiovascular Exam Cardiovascular Exam: +S1, +S2. absent: Rubs - GI/Abdominal Exam GI & Abdominal Exam: Soft, Normal Bowel Sounds - Extremities Exam Extremities Exam: Pedal Edema. absent: Tenderness - Neurological Exam Neurological Exam: absent: Alert, Oriented x3 Assessment and Plan (1) SUZANNE (acute kidney injury) Status: Acute (2) Anemia Status: Acute (3) COPD (chronic obstructive pulmonary disease) Status: Acute (4) Change in mental status Status: Acute (5) HIV antibody positive Status: Acute (6) Lung cancer Status: Acute - Assessment and Plan (Free Text) Assessment: Await labs today for further evaluation of renal function and electrolytes start lasix for volume overload Continue supportive care
[2017-04-13 11:43] LABS: MAGNESIUM 1.6 mg/dL (1.6-2.3)
[2017-04-13 11:55] LABS: EOSINOPHIL 4 % (0-4); NEUTROPHIL 72 % (50-75); REACTIVE LYMPHOCYTES 1 % (0-0); TOTAL CELLS COUNTED 100
[2017-04-13 11:58] LABS: LARGE PLATELETS PRESENT
[2017-04-13] MEDS: Albuterol-Ipratrop 3 mg / 0.5 (3 ml) UD INH PRN ×2 (12:33→19:38)
[2017-04-14] MEDS: Mag&Al/Simet/Diphen/Lido 237 ML KIT PO SCH ×6 (03:52→20:58)
[2017-04-14] MEDS: Meropenem 500 MG in Sodium Chloride 0.9% 100 ML IVPB SCH ×3 (05:58→21:56)
[2017-04-14] MEDS: Albuterol-Ipratrop 3 mg / 0.5 (3 ml) UD INH PRN (07:55)
[2017-04-14] MEDS: (Novolog) Insulin Aspart, Recombinant 100 u/ml 10 ml vial SC SCH ×4 (07:55→22:06)
[2017-04-14 07:58] LABS: BASO # 0.1 K/uL (0.0-0.2); BASO % 0.8 % (0.0-2.0); EOS # 0.2 K/uL (0.0-0.7); EOS % 3.2 % (0.0-4.0); HEMATOCRIT 30.2 % (35.0-51.0); LYMPH # 0.4 K/uL (1.0-4.3); LYMPH % 6.3 % (20.0-40.0); MEAN CELL VOLUME 79.5 fL (80.0-94.0); MEAN CORPUSCULAR HEMOGLOBIN 24.4 pg (27.0-31.0); MEAN CORPUSCULAR HGB CONC 30.7 g/dL (33.0-37.0); MEAN PLATELET VOLUME 8.4 fL (7.2-11.7); MONO # 0.5 K/uL (0.0-0.8); MONO % 7.1 % (0.0-10.0); NRBC % 0.1 % (0.0-2.0); PLATELET COUNT 127 K/uL (130-400); RED CELL DISTRIBUTION WIDTH 29.1 % (11.5-14.5); WHITE BLOOD COUNT 6.4 K/uL (4.8-10.8)
[2017-04-14 08:31] LABS: POTASSIUM 3.6 mmol/L (3.6-5.2)
[2017-04-14 08:33] LABS: ALB/GLOB RATIO 0.6 (1.0-2.1); BILIRUBIN,TOTAL 0.6 mg/dL (0.2-1.3); CALCIUM 6.4 mg/dl (8.6-10.4); PHOSPHOROUS 3.3 mg/dL (2.5-4.5); TOTAL PROTEIN 5.1 g/dL (6.3-8.3)
[2017-04-14 08:34] LABS: MAGNESIUM 1.7 mg/dL (1.6-2.3)
[2017-04-14 08:59] LABS: EOSINOPHIL 2 % (0-4); NEUTROPHIL 83 % (50-75); TOTAL CELLS COUNTED 100
[2017-04-14 09:01] LABS: LARGE PLATELETS PRESENT
[2017-04-14] MEDS: Multiple Vitamins Tab PO SCH (11:14)
[2017-04-14] MEDS: Saccharomyces Boulardi 250 mg Cap PO SCH ×2 (11:14→17:06)
--- NOTE | 2017-04-14 14:25 | CP.PCM.PN ---
Subjective - Date & Time of Evaluation Date of Evaluation: 04/14/17 Time of Evaluation: 08:00 - Subjective Subjective: CONFUSED AFEB Objective - Vital Signs/Intake and Output Vital Signs (last 24 hours): Temp Pulse Resp BP Pulse Ox 98.3 F 77 20 90/60 L 98 04/14/17 08:22 04/14/17 08:22 04/14/17 08:22 04/14/17 08:22 04/14/17 08:22 Intake and Output: 04/14/17 04/14/17 06:59 18:59 Intake Total 1320 Output Total 400 Balance 920 - Medications Medications: Current Medications Acetaminophen (Tylenol 325mg Tab) 650 mg PO Q6H PRN PRN Reason: Fever >100.4 F Last Admin: 04/14/17 11:35 Dose: 650 mg Albuterol/Ipratropium (Duoneb 3 Mg/0.5 Mg (3 Ml) Ud) 3 ml INH RQ6 PRN PRN Reason: Wheezing Last Admin: 04/14/17 07:55 Dose: 3 ml Benztropine Mesylate (Cogentin) 1 mg PO BID [facility] Last Admin: 04/14/17 11:15 Dose: 1 mg Dextrose (Dextrose 50% Inj) 50 ml IV Q6H PRN PRN Reason: Low blood sugar Emtricitabine (Emtriva) 200 mg PO Q48H [facility] Last Admin: 04/12/17 16:58 Dose: 200 mg Famotidine (Pepcid) 20 mg PO DAILY [facility] Last Admin: 04/14/17 11:14 Dose: 20 mg Ferrous Sulfate (Feosol) 325 mg PO DAILY [facility] Last Admin: 04/14/17 11:14 Dose: 325 mg Fluphenazine HCl (Prolixin) 5 mg PO BID [facility] Last Admin: 04/14/17 11:16 Dose: 5 mg Furosemide (Lasix) 40 mg IVP DAILY [facility] Last Admin: 04/14/17 11:13 Dose: Not Given Meropenem 500 mg/ Sodium (Chloride) 100 mls @ 100 mls/hr IVPB Q8 [facility] Last Admin: 04/14/17 13:48 Dose: 100 mls/hr Dextrose (Dextrose 10% In Water) 1,000 mls @ 40 mls/hr IV .Q24H [facility] Last Admin: 04/14/17 11:26 Dose: Not Given Insulin Aspart (Novolog) 0 unit SC ACHS [facility] PRN Reason: Protocol Last Admin: 04/14/17 12:09 Dose: Not Given Montelukast Sodium (Singulair) 10 mg PO HS [facility] Last Admin: 04/13/17 22:24 Dose: 10 mg Multivitamins (Hexavitamin) 1 tab PO DAILY [facility] Last Admin: 04/14/17 11:14 Dose: 1 tab Raltegravir (Isentress) 400 mg PO BID [facility] Last Admin: 04/14/17 11:15 Dose: 400 mg Saccharomyces Boulardii (Florastor) 250 mg PO BID [facility] Last Admin: 04/14/17 11:14 Dose: 250 mg Saliva Substitute (First Magic Mouthwash) 5 ml PO Q4H [facility] Last Admin: 04/14/17 11:24 Dose: 5 ml Senna/Docusate Sodium (Senokot S 50 Mg-8.6 Mg) 1 tab PO HS PRN PRN Reason: Constipation Last Admin: 04/12/17 10:02 Dose: 1 tab Sertraline HCl (Zoloft) 50 mg PO DAILY [facility] Last Admin: 04/14/17 11:14 Dose: 50 mg Tenofovir Disoproxil Fumarate (Viread) 300 mg PO Q48H [facility] Last Admin: 04/12/17 16:58 Dose: 300 mg - Labs Labs: 04/14/17 07:41 04/14/17 07:41 - Constitutional Appears: Non-toxic, Chronically Ill - Head Exam Head Exam: NORMOCEPHALIC - Eye Exam Eye Exam: PERRL - ENT Exam ENT Exam: Mucous Membranes Dry - Neck Exam Neck Exam: absent: Lymphadenopathy - Respiratory Exam Respiratory Exam: Decreased Breath Sounds - Cardiovascular Exam Cardiovascular Exam: REGULAR RHYTHM - GI/Abdominal Exam GI & Abdominal Exam: Distended - Rectal Exam Rectal Exam: Deferred - Exam Exam: NORMAL INSPECTION - Extremities Exam Extremities Exam: Pedal Edema - Back Exam Back Exam: absent: CVA tenderness (L), CVA tenderness (R), NORMAL INSPECTION Assessment and Plan (1) Anemia Status: Acute (2) CHF (congestive heart failure) Status: Acute (3) COPD (chronic obstructive pulmonary disease) Status: Acute (4) Change in mental status Status: Acute (5) Hypokalemia Status: Acute (6) Sepsis Status: Acute (7) Chest pain Status: Acute
[2017-04-14] MEDS: EMTRICITABINE 200 MG CAP PO SCH (17:06)
[2017-04-15] MEDS: Mag&Al/Simet/Diphen/Lido 237 ML KIT PO SCH ×6 (00:20→19:57)
--- NOTE | 2017-04-15 01:35 | CP.PCM.PN ---
Subjective - Date & Time of Evaluation Date of Evaluation: 04/12/17 Time of Evaluation: 19:00 - Subjective Subjective: Appears comfortable Objective - Vital Signs/Intake and Output Vital Signs (last 24 hours): Temp Pulse Resp BP Pulse Ox 97.3 F L 78 20 108/70 99 04/15/17 00:00 04/15/17 00:00 04/15/17 00:00 04/15/17 00:00 04/15/17 00:00 Intake and Output: 04/14/17 04/15/17 18:59 06:59 Intake Total 320 Balance 320 - Medications Medications: Current Medications Acetaminophen (Tylenol 325mg Tab) 650 mg PO Q6H PRN PRN Reason: Fever >100.4 F Last Admin: 04/14/17 11:35 Dose: 650 mg Benztropine Mesylate (Cogentin) 1 mg PO BID [facility] Last Admin: 04/14/17 17:06 Dose: 1 mg Dextrose (Dextrose 50% Inj) 50 ml IV Q6H PRN PRN Reason: Low blood sugar Emtricitabine (Emtriva) 200 mg PO Q48H [facility] Last Admin: 04/14/17 17:06 Dose: 200 mg Famotidine (Pepcid) 20 mg PO DAILY [facility] Last Admin: 04/14/17 11:14 Dose: 20 mg Ferrous Sulfate (Feosol) 325 mg PO DAILY [facility] Last Admin: 04/14/17 11:14 Dose: 325 mg Fluphenazine HCl (Prolixin) 5 mg PO BID [facility] Last Admin: 04/14/17 17:08 Dose: 5 mg Furosemide (Lasix) 40 mg IVP DAILY [facility] Last Admin: 04/14/17 11:13 Dose: Not Given Meropenem 500 mg/ Sodium (Chloride) 100 mls @ 100 mls/hr IVPB Q8 [facility] Last Admin: 04/14/17 21:56 Dose: 100 mls/hr Dextrose (Dextrose 10% In Water) 1,000 mls @ 40 mls/hr IV .Q24H [facility] Last Admin: 04/14/17 21:58 Dose: 40 mls/hr Insulin Aspart (Novolog) 0 unit SC ACHS [facility] PRN Reason: Protocol Last Admin: 04/14/17 22:06 Dose: Not Given Montelukast Sodium (Singulair) 10 mg PO HS [facility] Last Admin: 04/14/17 21:56 Dose: 10 mg Multivitamins (Hexavitamin) 1 tab PO DAILY [facility] Last Admin: 04/14/17 11:14 Dose: 1 tab Raltegravir (Isentress) 400 mg PO BID [facility] Last Admin: 04/14/17 17:06 Dose: 400 mg Saccharomyces Boulardii (Florastor) 250 mg PO BID [facility] Last Admin: 04/14/17 17:06 Dose: 250 mg Saliva Substitute (First Magic Mouthwash) 5 ml PO Q4H [facility] Last Admin: 04/14/17 20:58 Dose: 5 ml Senna/Docusate Sodium (Senokot S 50 Mg-8.6 Mg) 1 tab PO HS PRN PRN Reason: Constipation Last Admin: 04/12/17 10:02 Dose: 1 tab Sertraline HCl (Zoloft) 50 mg PO DAILY [facility] Last Admin: 04/14/17 11:14 Dose: 50 mg Tenofovir Disoproxil Fumarate (Viread) 300 mg PO Q48H [facility] Last Admin: 04/14/17 17:06 Dose: 300 mg - Labs Labs: 04/14/17 07:41 04/14/17 07:41 - Head Exam Head Exam: ATRAUMATIC - Eye Exam Eye Exam: Normal appearance - ENT Exam ENT Exam: Mucous Membranes Dry - Respiratory Exam Respiratory Exam: NORMAL BREATHING PATTERN - Cardiovascular Exam Cardiovascular Exam: +S1, +S2 - GI/Abdominal Exam GI & Abdominal Exam: Normal Bowel Sounds Assessment and Plan (1) Thrombocytopenia Assessment & Plan: improved daily HIV and sepsis Status: Acute (2) Anemia Assessment & Plan: iron deficiency and chronic disease consider IV ferrlecit when infection clears Status: Acute
--- NOTE | 2017-04-15 01:36 | CP.PCM.PN ---
Subjective - Date & Time of Evaluation Date of Evaluation: 04/14/17 Time of Evaluation: 17:00 - Subjective Subjective: Appears comfortable Objective - Vital Signs/Intake and Output Vital Signs (last 24 hours): Temp Pulse Resp BP Pulse Ox 97.3 F L 78 20 108/70 99 04/15/17 00:00 04/15/17 00:00 04/15/17 00:00 04/15/17 00:00 04/15/17 00:00 Intake and Output: 04/14/17 04/15/17 18:59 06:59 Intake Total 320 Balance 320 - Medications Medications: Current Medications Acetaminophen (Tylenol 325mg Tab) 650 mg PO Q6H PRN PRN Reason: Fever >100.4 F Last Admin: 04/14/17 11:35 Dose: 650 mg Benztropine Mesylate (Cogentin) 1 mg PO BID [facility] Last Admin: 04/14/17 17:06 Dose: 1 mg Dextrose (Dextrose 50% Inj) 50 ml IV Q6H PRN PRN Reason: Low blood sugar Emtricitabine (Emtriva) 200 mg PO Q48H [facility] Last Admin: 04/14/17 17:06 Dose: 200 mg Famotidine (Pepcid) 20 mg PO DAILY [facility] Last Admin: 04/14/17 11:14 Dose: 20 mg Ferrous Sulfate (Feosol) 325 mg PO DAILY [facility] Last Admin: 04/14/17 11:14 Dose: 325 mg Fluphenazine HCl (Prolixin) 5 mg PO BID [facility] Last Admin: 04/14/17 17:08 Dose: 5 mg Furosemide (Lasix) 40 mg IVP DAILY [facility] Last Admin: 04/14/17 11:13 Dose: Not Given Meropenem 500 mg/ Sodium (Chloride) 100 mls @ 100 mls/hr IVPB Q8 [facility] Last Admin: 04/14/17 21:56 Dose: 100 mls/hr Dextrose (Dextrose 10% In Water) 1,000 mls @ 40 mls/hr IV .Q24H [facility] Last Admin: 04/14/17 21:58 Dose: 40 mls/hr Insulin Aspart (Novolog) 0 unit SC ACHS [facility] PRN Reason: Protocol Last Admin: 04/14/17 22:06 Dose: Not Given Montelukast Sodium (Singulair) 10 mg PO HS [facility] Last Admin: 04/14/17 21:56 Dose: 10 mg Multivitamins (Hexavitamin) 1 tab PO DAILY [facility] Last Admin: 04/14/17 11:14 Dose: 1 tab Raltegravir (Isentress) 400 mg PO BID [facility] Last Admin: 04/14/17 17:06 Dose: 400 mg Saccharomyces Boulardii (Florastor) 250 mg PO BID [facility] Last Admin: 04/14/17 17:06 Dose: 250 mg Saliva Substitute (First Magic Mouthwash) 5 ml PO Q4H [facility] Last Admin: 04/14/17 20:58 Dose: 5 ml Senna/Docusate Sodium (Senokot S 50 Mg-8.6 Mg) 1 tab PO HS PRN PRN Reason: Constipation Last Admin: 04/12/17 10:02 Dose: 1 tab Sertraline HCl (Zoloft) 50 mg PO DAILY [facility] Last Admin: 04/14/17 11:14 Dose: 50 mg Tenofovir Disoproxil Fumarate (Viread) 300 mg PO Q48H [facility] Last Admin: 04/14/17 17:06 Dose: 300 mg - Labs Labs: 04/14/17 07:41 04/14/17 07:41 - Head Exam Head Exam: ATRAUMATIC - Eye Exam Eye Exam: Normal appearance - ENT Exam ENT Exam: Mucous Membranes Dry - Respiratory Exam Respiratory Exam: NORMAL BREATHING PATTERN - Cardiovascular Exam Cardiovascular Exam: +S1, +S2 - GI/Abdominal Exam GI & Abdominal Exam: Normal Bowel Sounds Assessment and Plan (1) Thrombocytopenia Assessment & Plan: improved HIV and sepsis Status: Acute (2) Anemia Assessment & Plan: iron deficiency and chronic disease consider IV ferrlecit when infection clears Status: Acute
--- NOTE | 2017-04-15 02:47 | CON ---
UROLOGY CONSULTATION DATE: 04/10/2017 Urology consultation is requested by Dr. Michael Stanley Urology consultation was filled by Dr. Bailey Paula. REASON FOR CONSULTATION: Azotemia, inability to be catheterized. HISTORY OF PRESENT ILLNESS: The patient is a 66-year-old male admitted on 8th floor. The patient is admitted through the emergency room. He was admitted with multiple problems. The patient has a history of COPD and history of lung cancer. The patient was admitted with altered mental status. The patient has a history of congestive heart failure as well. There is history of anemia and history of positive HIV. The patient has had UTI. The patient has had sepsis. The patient has had various consultations while in the hospital. The patient has had ICU care. The patient has had nephrology consultation as well as pulmonary care and consultation. Currently, the patient had attempted catheterization; however catheter was unable to be inserted. There is no report of hematuria. There is no history of urolithiasis. The consultation is requested regarding the patient's azotemia and inability to have the catheter inserted. A nephrology consultation has been obtained. The patient is also been evaluated for possible obstructive uropathy. The patient had a bladder ultrasound, which is reported to show distended bladder. His renal function demonstrate a deterioration. BUN was 36 and creatinine is 2.6. See attached lab reports. PHYSICAL EXAMINATION: GENERAL: The patient is a well-developed, well-nourished overweight male, appearing older than his stated age. The patient is awake and able to converse. He demonstrates mild lethargy. ABDOMEN: Soft. Mildly distended. There is no mass or organomegaly. BACK: No CVA tenderness. GENITALIA: Demonstrates marked edema of the scrotum and of the penis. I compressed the penis to diminished lymphedema. However, the patient still has phimosis. I was able to visualize the meatus barely. I inserted a 14-Sami Coude tip Price catheter into the bladder. Cloudy urine was obtained. Urine was sent back for urologic examination. The residual volume was low and will be further measured. IMPRESSION: Urinary tract infection, edema of genitalia, chronic obstructive pulmonary disease, and renal insufficiency. RECOMMENDATION AND PLAN: Price catheter in place. Obtain serum PSA. Monitor her output. Further therapy to follow according to the patient's clinical course. Continue treatments for the patient's CHF and COPD. I would also recommend obtaining a renal ultrasound. Further therapy to follow according to the patient's clinical course as well as results of above. Thank you for recommending the patient for urology consultation. Bailey Paula MD cc: Bailey Paula MD
[2017-04-15] MEDS: Meropenem 500 MG in Sodium Chloride 0.9% 100 ML IVPB SCH ×3 (05:23→21:40)
[2017-04-15 07:05] LABS: BASO % 0.8 % (0.0-2.0); EOS # 0.2 K/uL (0.0-0.7); EOS % 2.7 % (0.0-4.0); HEMATOCRIT 28.4 % (35.0-51.0); LYMPH # 0.4 K/uL (1.0-4.3); LYMPH % 7.2 % (20.0-40.0); MEAN CELL VOLUME 78.2 fL (80.0-94.0); MEAN CORPUSCULAR HEMOGLOBIN 24.2 pg (27.0-31.0); MEAN CORPUSCULAR HGB CONC 30.9 g/dL (33.0-37.0); MEAN PLATELET VOLUME 8.3 fL (7.2-11.7); MONO # 0.5 K/uL (0.0-0.8); MONO % 8.1 % (0.0-10.0); PLATELET COUNT 126 K/uL (130-400); RED CELL DISTRIBUTION WIDTH 29.5 % (11.5-14.5); WHITE BLOOD COUNT 5.9 K/uL (4.8-10.8)
[2017-04-15 07:23] LABS: POTASSIUM 3.1 mmol/L (3.6-5.2)
[2017-04-15 07:25] LABS: ALB/GLOB RATIO 0.6 (1.0-2.1); BILIRUBIN,TOTAL 0.5 mg/dL (0.2-1.3); TOTAL PROTEIN 4.6 g/dL (6.3-8.3)
[2017-04-15 07:26] LABS: CALCIUM 6.5 mg/dl (8.6-10.4); MAGNESIUM 1.6 mg/dL (1.6-2.3); PHOSPHOROUS 3.6 mg/dL (2.5-4.5)
[2017-04-15] MEDS ORDERED: Potassium Chloride 20 mEq/15 ml LIQ UD PO ONE ×2 (07:56→11:20)
[2017-04-15] MEDS: (Novolog) Insulin Aspart, Recombinant 100 u/ml 10 ml vial SC SCH ×4 (08:16→21:42)
[2017-04-15 08:25] LABS: BASOPHIL 2 % (0-2); EOSINOPHIL 1 % (0-4); METAMYELOCYTE 1 % (0-0); NEUTROPHIL 81 % (50-75); TOTAL CELLS COUNTED 100
[2017-04-15] MEDS: Multiple Vitamins Tab PO SCH (10:15)
[2017-04-15] MEDS: Saccharomyces Boulardi 250 mg Cap PO SCH ×2 (10:16→17:14)
--- NOTE | 2017-04-15 11:21 | PN ---
SUBJECTIVE: The patients feeling weak, fatigue, tired. Potassium is decreased. Add potassium, supportive care. Michael Stanley MD
--- NOTE | 2017-04-15 12:32 | CP.PCM.PN ---
Subjective - Date & Time of Evaluation Date of Evaluation: 04/15/17 Time of Evaluation: 08:00 - Subjective Subjective: more awake viral load < 20 Objective - Vital Signs/Intake and Output Vital Signs (last 24 hours): Temp Pulse Resp BP Pulse Ox 97 F L 66 18 96/60 L 96 04/15/17 08:00 04/15/17 08:00 04/15/17 08:00 04/15/17 10:17 04/15/17 08:00 Intake and Output: 04/15/17 04/15/17 06:59 18:59 Intake Total 320 Output Total 350 Balance -30 - Medications Medications: Current Medications Acetaminophen (Tylenol 325mg Tab) 650 mg PO Q6H PRN PRN Reason: Fever >100.4 F Last Admin: 04/14/17 11:35 Dose: 650 mg Benztropine Mesylate (Cogentin) 1 mg PO BID [facility] Last Admin: 04/15/17 11:09 Dose: 1 mg Dextrose (Dextrose 50% Inj) 50 ml IV Q6H PRN PRN Reason: Low blood sugar Emtricitabine (Emtriva) 200 mg PO Q48H [facility] Last Admin: 04/14/17 17:06 Dose: 200 mg Famotidine (Pepcid) 20 mg PO DAILY [facility] Last Admin: 04/15/17 10:15 Dose: 20 mg Ferrous Sulfate (Feosol) 325 mg PO DAILY [facility] Last Admin: 04/15/17 10:15 Dose: 325 mg Fluphenazine HCl (Prolixin) 5 mg PO BID [facility] Last Admin: 04/15/17 11:07 Dose: 5 mg Furosemide (Lasix) 40 mg IVP DAILY [facility] Last Admin: 04/15/17 10:17 Dose: Not Given Meropenem 500 mg/ Sodium (Chloride) 100 mls @ 100 mls/hr IVPB Q8 [facility] Last Admin: 04/15/17 05:23 Dose: 100 mls/hr Dextrose (Dextrose 10% In Water) 1,000 mls @ 40 mls/hr IV .Q24H [facility] Last Admin: 04/14/17 21:58 Dose: 40 mls/hr Potassium Chloride (Potassium Chloride 10 Meq/100 Ml) 10 meq in 100 mls @ 100 mls/hr IVPB Q4H [facility] Stop: 04/15/17 14:59 Last Admin: 04/15/17 10:16 Dose: 100 mls/hr Insulin Aspart (Novolog) 0 unit SC ACHS [facility] PRN Reason: Protocol Last Admin: 04/15/17 08:16 Dose: Not Given Montelukast Sodium (Singulair) 10 mg PO HS [facility] Last Admin: 04/14/17 21:56 Dose: 10 mg Multivitamins (Hexavitamin) 1 tab PO DAILY [facility] Last Admin: 04/15/17 10:15 Dose: 1 tab Raltegravir (Isentress) 400 mg PO BID [facility] Last Admin: 04/15/17 11:08 Dose: 400 mg Saccharomyces Boulardii (Florastor) 250 mg PO BID [facility] Last Admin: 04/15/17 10:16 Dose: 250 mg Saliva Substitute (First Magic Mouthwash) 5 ml PO Q4H [facility] Last Admin: 04/15/17 10:15 Dose: 5 ml Senna/Docusate Sodium (Senokot S 50 Mg-8.6 Mg) 1 tab PO HS PRN PRN Reason: Constipation Last Admin: 04/12/17 10:02 Dose: 1 tab Sertraline HCl (Zoloft) 50 mg PO DAILY [facility] Last Admin: 04/15/17 10:15 Dose: 50 mg Tenofovir Disoproxil Fumarate (Viread) 300 mg PO Q48H [facility] Last Admin: 04/14/17 17:06 Dose: 300 mg - Labs Labs: 04/15/17 06:52 04/15/17 06:52 Assessment and Plan (1) Anemia Status: Acute (2) CHF (congestive heart failure) Status: Acute (3) COPD (chronic obstructive pulmonary disease) Status: Acute (4) Change in mental status Status: Acute (5) Hypokalemia Status: Acute (6) Sepsis Status: Acute (7) Chest pain Status: Acute
--- NOTE | 2017-04-15 13:17 | CP.PCM.PN ---
Subjective - Date & Time of Evaluation Date of Evaluation: 04/15/17 Time of Evaluation: 13:15 - Subjective Subjective: Alert has diarhea now UO-350ml this AM Creat stable at 2.5 K repleted today Objective - Vital Signs/Intake and Output Vital Signs (last 24 hours): Temp Pulse Resp BP Pulse Ox 97 F L 66 18 96/60 L 96 04/15/17 08:00 04/15/17 08:00 04/15/17 08:00 04/15/17 10:17 04/15/17 08:00 Intake and Output: 04/15/17 04/15/17 06:59 18:59 Intake Total 320 Output Total 350 Balance -30 - Medications Medications: Current Medications Acetaminophen (Tylenol 325mg Tab) 650 mg PO Q6H PRN PRN Reason: Fever >100.4 F Last Admin: 04/14/17 11:35 Dose: 650 mg Benztropine Mesylate (Cogentin) 1 mg PO BID [facility] Last Admin: 04/15/17 11:09 Dose: 1 mg Dextrose (Dextrose 50% Inj) 50 ml IV Q6H PRN PRN Reason: Low blood sugar Emtricitabine (Emtriva) 200 mg PO Q48H [facility] Last Admin: 04/14/17 17:06 Dose: 200 mg Famotidine (Pepcid) 20 mg PO DAILY [facility] Last Admin: 04/15/17 10:15 Dose: 20 mg Ferrous Sulfate (Feosol) 325 mg PO DAILY [facility] Last Admin: 04/15/17 10:15 Dose: 325 mg Fluphenazine HCl (Prolixin) 5 mg PO BID [facility] Last Admin: 04/15/17 11:07 Dose: 5 mg Furosemide (Lasix) 40 mg IVP DAILY [facility] Last Admin: 04/15/17 10:17 Dose: Not Given Meropenem 500 mg/ Sodium (Chloride) 100 mls @ 100 mls/hr IVPB Q8 [facility] Last Admin: 04/15/17 05:23 Dose: 100 mls/hr Potassium Chloride (Potassium Chloride 10 Meq/100 Ml) 10 meq in 100 mls @ 100 mls/hr IVPB Q4H [facility] Stop: 04/15/17 14:59 Last Admin: 04/15/17 10:16 Dose: 100 mls/hr Insulin Aspart (Novolog) 0 unit SC ACHS [facility] PRN Reason: Protocol Last Admin: 04/15/17 08:16 Dose: Not Given Montelukast Sodium (Singulair) 10 mg PO HS [facility] Last Admin: 04/14/17 21:56 Dose: 10 mg Multivitamins (Hexavitamin) 1 tab PO DAILY [facility] Last Admin: 04/15/17 10:15 Dose: 1 tab Raltegravir (Isentress) 400 mg PO BID [facility] Last Admin: 04/15/17 11:08 Dose: 400 mg Saccharomyces Boulardii (Florastor) 250 mg PO BID [facility] Last Admin: 04/15/17 10:16 Dose: 250 mg Saliva Substitute (First Magic Mouthwash) 5 ml PO Q4H [facility] Last Admin: 04/15/17 10:15 Dose: 5 ml Senna/Docusate Sodium (Senokot S 50 Mg-8.6 Mg) 1 tab PO HS PRN PRN Reason: Constipation Last Admin: 04/12/17 10:02 Dose: 1 tab Sertraline HCl (Zoloft) 50 mg PO DAILY [facility] Last Admin: 04/15/17 10:15 Dose: 50 mg Tenofovir Disoproxil Fumarate (Viread) 300 mg PO Q48H [facility] Last Admin: 04/14/17 17:06 Dose: 300 mg - Labs Labs: 04/15/17 06:52 04/15/17 06:52 - Constitutional Appears: No Acute Distress, Chronically Ill - Head Exam Head Exam: ATRAUMATIC, NORMAL INSPECTION - Eye Exam Eye Exam: EOMI, Normal appearance - Neck Exam Neck Exam: Normal Inspection. absent: Tenderness - Respiratory Exam Respiratory Exam: Rhonchi, NORMAL BREATHING PATTERN - Cardiovascular Exam Cardiovascular Exam: REGULAR RHYTHM, +S1 - GI/Abdominal Exam GI & Abdominal Exam: Soft. absent: Tenderness - Extremities Exam Extremities Exam: Pedal Edema, Tenderness - Neurological Exam Neurological Exam: Awake, CN II-XII Intact - Skin Skin Exam: Dry, Warm Assessment and Plan (1) SUZANNE (acute kidney injury) Status: Acute (2) Obstructive uropathy Status: Acute (3) CHF (congestive heart failure) Status: Acute (4) COPD (chronic obstructive pulmonary disease) Status: Acute (5) Sepsis Status: Acute (6) Lung cancer Status: Acute (7) HIV antibody positive Status: Acute - Assessment and Plan (Free Text) Plan: check c.diff IV lasix replete K check protein excretion rate
--- NOTE | 2017-04-15 13:38 | CP.PCM.PN ---
Subjective - Date & Time of Evaluation Date of Evaluation: 04/15/17 Time of Evaluation: 07:40 - Subjective Subjective: PGY2 medicine progress note for Dr. Stanley: Patient seen and examined. No acute overnight events. Patient is AAOx3 today, reports feeling better. He is tolerating his diet, and reports normal BMs. Silverman is inplace, and he reports urinating about twice per day. We spoke at length, and he wishes to be DNR/DNI - he will speak further with out Palliative care team. Objective - Vital Signs/Intake and Output Vital Signs (last 24 hours): Temp Pulse Resp BP Pulse Ox 97 F L 66 18 96/60 L 96 04/15/17 08:00 04/15/17 08:00 04/15/17 08:00 04/15/17 10:17 04/15/17 08:00 Intake and Output: 04/15/17 04/15/17 06:59 18:59 Intake Total 320 Output Total 350 Balance -30 - Medications Medications: Current Medications Acetaminophen (Tylenol 325mg Tab) 650 mg PO Q6H PRN PRN Reason: Fever >100.4 F Last Admin: 04/14/17 11:35 Dose: 650 mg Benztropine Mesylate (Cogentin) 1 mg PO BID [facility] Last Admin: 04/15/17 11:09 Dose: 1 mg Dextrose (Dextrose 50% Inj) 50 ml IV Q6H PRN PRN Reason: Low blood sugar Emtricitabine (Emtriva) 200 mg PO Q48H [facility] Last Admin: 04/14/17 17:06 Dose: 200 mg Famotidine (Pepcid) 20 mg PO DAILY [facility] Last Admin: 04/15/17 10:15 Dose: 20 mg Ferrous Sulfate (Feosol) 325 mg PO DAILY [facility] Last Admin: 04/15/17 10:15 Dose: 325 mg Fluphenazine HCl (Prolixin) 5 mg PO BID [facility] Last Admin: 04/15/17 11:07 Dose: 5 mg Furosemide (Lasix) 40 mg IVP DAILY [facility] Last Admin: 04/15/17 10:17 Dose: Not Given Meropenem 500 mg/ Sodium (Chloride) 100 mls @ 100 mls/hr IVPB Q8 [facility] Last Admin: 04/15/17 13:33 Dose: 100 mls/hr Potassium Chloride (Potassium Chloride 10 Meq/100 Ml) 10 meq in 100 mls @ 100 mls/hr IVPB Q4H [facility] Stop: 04/15/17 14:59 Last Admin: 04/15/17 10:16 Dose: 100 mls/hr Insulin Aspart (Novolog) 0 unit SC ACHS [facility] PRN Reason: Protocol Last Admin: 04/15/17 08:16 Dose: Not Given Montelukast Sodium (Singulair) 10 mg PO HS [facility] Last Admin: 04/14/17 21:56 Dose: 10 mg Multivitamins (Hexavitamin) 1 tab PO DAILY [facility] Last Admin: 04/15/17 10:15 Dose: 1 tab Raltegravir (Isentress) 400 mg PO BID [facility] Last Admin: 04/15/17 11:08 Dose: 400 mg Saccharomyces Boulardii (Florastor) 250 mg PO BID [facility] Last Admin: 04/15/17 10:16 Dose: 250 mg Saliva Substitute (First Magic Mouthwash) 5 ml PO Q4H [facility] Last Admin: 04/15/17 10:15 Dose: 5 ml Senna/Docusate Sodium (Senokot S 50 Mg-8.6 Mg) 1 tab PO HS PRN PRN Reason: Constipation Last Admin: 04/12/17 10:02 Dose: 1 tab Sertraline HCl (Zoloft) 50 mg PO DAILY [facility] Last Admin: 04/15/17 10:15 Dose: 50 mg Tenofovir Disoproxil Fumarate (Viread) 300 mg PO Q48H [facility] Last Admin: 04/14/17 17:06 Dose: 300 mg - Labs Labs: 04/15/17 06:52 04/15/17 06:52 - Additional Findings Additional findings: - Constitutional Appears: No Acute Distress, Chronically Ill - Head Exam Head Exam: NORMOCEPHALIC, ATRAUMATIC, NORMAL INSPECTION - Eye Exam Eye Exam: EOMI - ENT Exam ENT Exam: Mucous Membranes Moist - Respiratory Exam Respiratory Exam: Chest Wall Tenderness, Rhonchi, NORMAL BREATHING PATTERN Additional comments: right chest port - Cardiovascular Exam Cardiovascular Exam: REGULAR RHYTHM, +S1, +S2 - GI/Abdominal Exam GI & Abdominal Exam: Soft, Normal Bowel Sounds. absent: Tenderness - Exam Exam: Scrotal Swelling Additional comments: silverman catheter - Extremities Exam Extremities Exam: Pedal Edema (2+ b/l) - Neurological Exam Neurological Exam: Awake. absent: Oriented x3 - Skin Skin Exam: Dry, Warm Assessment and Plan - Assessment and Plan (Free Text) Assessment: Elevated creatinine, R/O Obstructive uropathy 04/15: Silverman in place, good urine output. f/u bladder scan. 04/12: minimal output per silverman. Per nursing, urine is leaking around silverman and last bladder scan showed 12mL in bladder. Creatinine unchanged. Silverman catheter was changed yesterday by Dr. Paula 04/11: minimal urine output per silverman. Attempted to advance silverman without improvement in urine output. Discussed with Dr. aPula- will investigate and potentially exchange silverman today 04/10: bladder scan with >1000cc urine 04/09/17: bladder US- complex cystic mass left and inferior to bladder, 812 cc urine present scrotum and penis is edematous and meatus cannot be identified Dr. Bailey Paula consulted for urinary retention, will see patient today to insert silverman catheter will keep NPO in case patient needs OR procedure Nephrology, Dr. Domínguez, on the case- help appreciated Sepsis secondary to UTI Urine culture from 04/10/17 negative for growth bands 5 New silverman placed 04/10/17 but with poor urine output-may be obstructed. urine sample was collected, sent for UA, culture Continue Meropenem 500mg (started on 03/31), will F/U with ID regarding duration of treatment Started Florastor 04/05 Patient was started on Primaxin on 03/24 and was discontinued 03/31 Currently afebrile, WBC 4.2 Silverman was inserted on 03/22 - Silverman was discontinued 04/01. N Urine culture from 03/22- Proteus Mirabilis Blood culture from 03/21- Proteus Mirabilis Repeat blood culture 03/29: No growth after 5 days Hypoglycemia patient with two hypoglycemic episodes. Starting D10 @ 40cc/h Change in Mental Status 04/15: patient more alert today, AAOx3 Waxing and waning alertness- patient more alert today Head CT: no mass effect, edema, bleed. atrophy seen ABG 04/10: pH 7.45, pCO2 39, pO2 82 Diarrhea 04/15: diarrhea today. f/u c.diff patient has been on multiple IV antibiotics and is now having large volume diarrhea 04/12/17: stopping flagyl, C. diff negative Anasarca 04/15: albumin steady at 1.7, likely third spacing. 04/12: will give albumin once daily x 3 doses Dyspnea- Secondary to COPD v. CHF v. Lung CA v. Pneumonia 04/15: saturating well on NC. BiPAP ordered to be place HS, and PRN during the day. Patient would benefit from BiPAP however he prefers nasal canula at this time. Encourage patient to wear BiPAP Mycoplasma negative Blood cultures negative 03/29: CXR shows minimal change interval from previous study; chronic changes in LML and LLL. Pancytopenia 04/15: plateletes 126. Hgb 8.8. 1u PRBC ready. Transfused 2 units PRBC 04/05. Now Hgb 10.1 Microcytic Anemia- chronic disease v. iron deficiency 04/04: Hgb 8.1 04/02: Per Dr. Connell, consider GI eval once acute illness resolves Feosol 325mg PO daily Likely secondary to sepsis or HIV Hold off Lovenox Per Dr. Connell do not transfuse platelets unless <20 Continue to monitor Mouth Sores Magic Mouthwash Q4H Electrolyte deficiency Prior Hx. Currently stable. Monitor daily, supplement as needed Obstructive Sleep Apnea BiPAP ordered for night time use- patient should go to intermediate with BIPAP at night He has been non-compliant with BiPAP. Encourage use. History of COPD 04/15: saturating well on NC. BiPAP ordered to be place HS, and PRN during the day. On n/c. Duonebs as needed PRN Singulair 10mg PO daily History of HIV % CD4 cells 59, Absolute CD4 158 ; % [id number] 8, Absolute CD8 23 04/02: ID Consulted, Dr La, f/u recs - Truvada 1 tab PO daily (home med) Isentress 400mg PO BID (home med) HTN 04/15: BP stable/low, continue to monitor. BP meds held due to hypotension Previous Echo done on 02/26/17- EF 62% (see full report) HLD 04/03: Stopped Crestor 20mg PO HS 2/2 elevated LFTs Transaminitis Stable Crestor held Cont to monitor Psychiatric history- questionable Schizophrenia Fluphenazine 5mg PO BID Benztropine Mesylate 1mg PO BID Zoloft 50mg PO daily Discontinued Atarax and Trazodone due to lethargy Transient hyperglycemia likely secondary to steroid administration ISS Continue to monitor No documented history of DM Accuchecks A1c 6.2 Prophylaxis Pepcid 20mg PO daily No chemical VTE prophylaxis due to thrombocytopenia PT Eval and Treat Palliative consult, Katy Kramer- help appreciated Patient is considering DNR/DNI (will discuss with Katy). All medical management as per Dr. Stanley
[2017-04-16] MEDS: Mag&Al/Simet/Diphen/Lido 237 ML KIT PO SCH ×6 (03:27→19:14)
[2017-04-16] MEDS: Meropenem 500 MG in Sodium Chloride 0.9% 100 ML IVPB SCH ×3 (05:09→22:26)
[2017-04-16] MEDS: (Novolog) Insulin Aspart, Recombinant 100 u/ml 10 ml vial SC SCH ×4 (07:26→21:42)
[2017-04-16 07:37] LABS: BASO % 0.5 % (0.0-2.0); EOS # 0.1 K/uL (0.0-0.7); EOS % 2.2 % (0.0-4.0); HEMATOCRIT 21.4 % (35.0-51.0); LYMPH # 0.4 K/uL (1.0-4.3); LYMPH % 7.7 % (20.0-40.0); MEAN CELL VOLUME 79.2 fL (80.0-94.0); MEAN CORPUSCULAR HEMOGLOBIN 24.5 pg (27.0-31.0); MEAN CORPUSCULAR HGB CONC 30.9 g/dL (33.0-37.0); MEAN PLATELET VOLUME 8.3 fL (7.2-11.7); MONO # 0.4 K/uL (0.0-0.8); MONO % 8.2 % (0.0-10.0); NRBC % 0.2 % (0.0-2.0); RED CELL DISTRIBUTION WIDTH 28.6 % (11.5-14.5); WHITE BLOOD COUNT 5.1 K/uL (4.8-10.8)
[2017-04-16 07:53] LABS: POTASSIUM 3.4 mmol/L (3.6-5.2)
[2017-04-16 07:55] LABS: BILIRUBIN,TOTAL 0.5 mg/dL (0.2-1.3)
[2017-04-16 07:56] LABS: ALB/GLOB RATIO 0.6 (1.0-2.1); PHOSPHOROUS 3.6 mg/dL (2.5-4.5); TOTAL PROTEIN 4.2 g/dL (6.3-8.3)
[2017-04-16 07:57] LABS: MAGNESIUM 1.5 mg/dL (1.6-2.3)
[2017-04-16 08:16] LABS: CALCIUM 5.7 mg/dl (8.6-10.4)
[2017-04-16 09:14] LABS: BASOPHIL 2 % (0-2); EOSINOPHIL 2 % (0-4); NEUTROPHIL 85 % (50-75); TOTAL CELLS COUNTED 100
--- NOTE | 2017-04-16 10:26 | CP.PCM.PN ---
Subjective - Date & Time of Evaluation Date of Evaluation: 04/16/17 Time of Evaluation: 07:20 - Subjective Subjective: PGY2 medicine progress note for Dr. Stanley: Patient seen and examined. No acute overnight events. Patient is AAOx3 today, reports feeling better. He is tolerating his diet, and reports normal BMs. Dee is inplace. Today he spoke with Katy and completed paperwork for DNR/ DNI. Polst in chart. Objective - Vital Signs/Intake and Output Vital Signs (last 24 hours): Temp Pulse Resp BP Pulse Ox 97.3 F L 78 18 100/66 97 04/16/17 07:35 04/16/17 07:35 04/16/17 07:35 04/16/17 07:35 04/16/17 07:35 Intake and Output: 04/16/17 04/16/17 06:59 18:59 Intake Total 100 Output Total 800 Balance -700 - Medications Medications: Current Medications Acetaminophen (Tylenol 325mg Tab) 650 mg PO Q6H PRN PRN Reason: Fever >100.4 F Last Admin: 04/14/17 11:35 Dose: 650 mg Benztropine Mesylate (Cogentin) 1 mg PO BID [facility] Last Admin: 04/15/17 17:14 Dose: 1 mg Dextrose (Dextrose 50% Inj) 50 ml IV Q6H PRN PRN Reason: Low blood sugar Emtricitabine (Emtriva) 200 mg PO Q48H [facility] Last Admin: 04/14/17 17:06 Dose: 200 mg Famotidine (Pepcid) 20 mg PO DAILY [facility] Last Admin: 04/15/17 10:15 Dose: 20 mg Ferrous Sulfate (Feosol) 325 mg PO DAILY [facility] Last Admin: 04/15/17 10:15 Dose: 325 mg Fluphenazine HCl (Prolixin) 5 mg PO BID [facility] Last Admin: 04/15/17 17:14 Dose: 5 mg Furosemide (Lasix) 40 mg IVP DAILY [facility] Last Admin: 04/15/17 10:17 Dose: Not Given Meropenem 500 mg/ Sodium (Chloride) 100 mls @ 100 mls/hr IVPB Q8 [facility] Last Admin: 04/16/17 05:09 Dose: 100 mls/hr Insulin Aspart (Novolog) 0 unit SC ACHS [facility] PRN Reason: Protocol Last Admin: 04/16/17 07:26 Dose: Not Given Montelukast Sodium (Singulair) 10 mg PO HS [facility] Last Admin: 04/15/17 21:31 Dose: 10 mg Multivitamins (Hexavitamin) 1 tab PO DAILY [facility] Last Admin: 04/15/17 10:15 Dose: 1 tab Raltegravir (Isentress) 400 mg PO BID [facility] Last Admin: 04/15/17 17:14 Dose: 400 mg Saccharomyces Boulardii (Florastor) 250 mg PO BID [facility] Last Admin: 04/15/17 17:14 Dose: 250 mg Saliva Substitute (First Magic Mouthwash) 5 ml PO Q4H [facility] Last Admin: 04/16/17 07:44 Dose: 5 ml Senna/Docusate Sodium (Senokot S 50 Mg-8.6 Mg) 1 tab PO HS PRN PRN Reason: Constipation Last Admin: 04/12/17 10:02 Dose: 1 tab Sertraline HCl (Zoloft) 50 mg PO DAILY [facility] Last Admin: 04/15/17 10:15 Dose: 50 mg Tenofovir Disoproxil Fumarate (Viread) 300 mg PO Q48H [facility] Last Admin: 04/14/17 17:06 Dose: 300 mg - Labs Labs: 04/16/17 07:14 04/16/17 07:14 - Additional Findings Additional findings: - Constitutional Appears: No Acute Distress, Chronically Ill - Head Exam Head Exam: NORMOCEPHALIC, ATRAUMATIC, NORMAL INSPECTION - Eye Exam Eye Exam: EOMI - ENT Exam ENT Exam: Mucous Membranes Moist - Respiratory Exam Respiratory Exam: Chest Wall Tenderness, Rhonchi, NORMAL BREATHING PATTERN Additional comments: right chest port - Cardiovascular Exam Cardiovascular Exam: REGULAR RHYTHM, +S1, +S2 - GI/Abdominal Exam GI & Abdominal Exam: Soft, Normal Bowel Sounds. absent: Tenderness - Exam Exam: Scrotal Swelling Additional comments: silverman catheter - Extremities Exam Extremities Exam: Pedal Edema (2+ b/l) - Neurological Exam Neurological Exam: Awake. absent: Oriented x3 - Skin Skin Exam: Dry, Warm Assessment and Plan - Assessment and Plan (Free Text) Assessment: Elevated creatinine, R/O Obstructive uropathy 04/16: Patient followed by nephrology, Dr. Diallo. Urine output 600cc over 24 hours. 24 hour urine protein / creatinine clearance in process. 9/11: Silverman in place, good urine output. f/u bladder scan. 04/12: minimal output per silverman. Per nursing, urine is leaking around silverman and last bladder scan showed 12mL in bladder. Creatinine unchanged. Silverman catheter was changed yesterday by Dr. Paula 04/11: minimal urine output per silverman. Attempted to advance silverman without improvement in urine output. Discussed with Dr. Paula- will investigate and potentially exchange silverman today 04/10: bladder scan with >1000cc urine 04/09/17: bladder US- complex cystic mass left and inferior to bladder, 812 cc urine present scrotum and penis is edematous and meatus cannot be identified Dr. Bailey Paula consulted for urinary retention, will see patient today to insert silverman catheter will keep NPO in case patient needs OR procedure Nephrology, Dr. Domínguez, on the case- help appreciated Sepsis secondary to UTI Urine culture from 04/10/17 negative for growth bands 5 New silverman placed 04/10/17 but with poor urine output-may be obstructed. urine sample was collected, sent for UA, culture Continue Meropenem 500mg (started on 03/31), will F/U with ID regarding duration of treatment Started Florastor 04/05 Patient was started on Primaxin on 03/24 and was discontinued 03/31 Currently afebrile, WBC 4.2 Silverman was inserted on 03/22 - Silverman was discontinued 04/01. N Urine culture from 03/22- Proteus Mirabilis Blood culture from 03/21- Proteus Mirabilis Repeat blood culture 03/29: No growth after 5 days Dyspnea- Secondary to COPD v. CHF v. Lung CA v. Pneumonia 04/16: repeat CXR - Progressive multifocal infiltrates affecting left upper lobe , right lower lobe. Continue IV Abx. Continue BiPAP. 04/15: saturating well on NC. BiPAP ordered to be place HS, and PRN during the day. Patient would benefit from BiPAP however he prefers nasal canula at this time. Encourage patient to wear BiPAP Mycoplasma negative Blood cultures negative 03/29: CXR shows minimal change interval from previous study; chronic changes in LML and LLL. Hypoglycemia patient with two hypoglycemic episodes. Starting D10 @ 40cc/h Change in Mental Status 04/16: AAOx3 today. 04/15: patient more alert today, AAOx3 Waxing and waning alertness- patient more alert today Head CT: no mass effect, edema, bleed. atrophy seen ABG 04/10: pH 7.45, pCO2 39, pO2 82 Diarrhea 04/15: diarrhea today. c.diff Negative patient has been on multiple IV antibiotics and is now having large volume diarrhea 04/12/17: stopping flagyl, C. diff negative Anasarca 04/15: albumin steady at 1.7, likely third spacing. 04/12: will give albumin once daily x 3 doses Pancytopenia 04/15: plateletes 126. Hgb 8.8. 1u PRBC ready. Transfused 2 units PRBC 04/05. Now Hgb 10.1 Microcytic Anemia- chronic disease v. iron deficiency 04/04: Hgb 8.1 04/02: Per Dr. Connell, consider GI eval once acute illness resolves Feosol 325mg PO daily Likely secondary to sepsis or HIV Hold off Lovenox Per Dr. Connell do not transfuse platelets unless <20 Continue to monitor Mouth Sores Magic Mouthwash Q4H Electrolyte deficiency Prior Hx. Currently stable. Monitor daily, supplement as needed Obstructive Sleep Apnea BiPAP ordered for night time use- patient should go to care home with BIPAP at night He has been non-compliant with BiPAP. Encourage use. History of COPD 04/16: Continue BiPAP HS (BiPAP may be placed PRN during the day). 04/15: saturating well on NC. BiPAP ordered to be place HS, and PRN during the day. On n/c. Duonebs as needed PRN Singulair 10mg PO daily History of HIV % CD4 cells 59, Absolute CD4 158 ; % [id number] 8, Absolute CD8 23 04/02: ID Consulted, Dr La, f/u recs - Truvada 1 tab PO daily (home med) Isentress 400mg PO BID (home med) HTN 04/15-04/16: BP stable/low, continue to monitor. BP meds held due to hypotension Previous Echo done on 02/26/17- EF 62% (see full report) HLD 04/03: Stopped Crestor 20mg PO HS 2/2 elevated LFTs Transaminitis Stable Crestor held Cont to monitor Psychiatric history- questionable Schizophrenia Fluphenazine 5mg PO BID Benztropine Mesylate 1mg PO BID Zoloft 50mg PO daily Discontinued Atarax and Trazodone due to lethargy Transient hyperglycemia likely secondary to steroid administration ISS Continue to monitor No documented history of DM Accuchecks A1c 6.2 Prophylaxis Pepcid 20mg PO daily No chemical VTE prophylaxis due to thrombocytopenia PT Eval and Treat Palliative consult, Katy Kramer- help appreciated Code Status: DNR/DNI (patient spoke with Katy 04/16 and filled paperwork). All medical management as per Dr. Stanley
[2017-04-16 10:40] LABS: BASO # 0.1 K/uL (0.0-0.2); BASO % 1.1 % (0.0-2.0); EOS # 0.3 K/uL (0.0-0.7); EOS % 3.1 % (0.0-4.0); HEMATOCRIT 31.2 % (35.0-51.0); LYMPH # 0.9 K/uL (1.0-4.3); MEAN CELL VOLUME 78.7 fL (80.0-94.0); MEAN CORPUSCULAR HEMOGLOBIN 24.8 pg (27.0-31.0); MEAN CORPUSCULAR HGB CONC 31.6 g/dL (33.0-37.0); MEAN PLATELET VOLUME 8.3 fL (7.2-11.7); MONO # 0.8 K/uL (0.0-0.8); MONO % 9.1 % (0.0-10.0); NRBC % 0.3 % (0.0-2.0); RED CELL DISTRIBUTION WIDTH 29.2 % (11.5-14.5); WHITE BLOOD COUNT 8.9 K/uL (4.8-10.8)
[2017-04-16 10:52] LABS: ALB/GLOB RATIO 0.7 (1.0-2.1); BILIRUBIN,TOTAL 0.5 mg/dL (0.2-1.3); CALCIUM 6.8 mg/dl (8.6-10.4); POTASSIUM 3.4 mmol/L (3.6-5.2); TOTAL PROTEIN 5.3 g/dL (6.3-8.3)
[2017-04-16] MEDS ORDERED: Magnesium Sulfate 1 gm in D5W 1 GM/100 ML BAG IVPB ONE (10:58)
[2017-04-16] MEDS: Saccharomyces Boulardi 250 mg Cap PO SCH ×2 (11:07→17:02)
[2017-04-16] MEDS: Multiple Vitamins Tab PO SCH (11:08)
[2017-04-16] MEDS: Docusate-Senna 50 mg-8.6 mg Tab PO PRN (11:09)
--- NOTE | 2017-04-16 11:27 | CP.PCM.PN ---
Subjective - Date & Time of Evaluation Date of Evaluation: 04/16/17 Time of Evaluation: 11:25 - Subjective Subjective: seen and examined poor historian., per RN - no diarrhea. poor oral intake uop 600cc over 24 hours Objective - Vital Signs/Intake and Output Vital Signs (last 24 hours): Temp Pulse Resp BP Pulse Ox 97.3 F L 78 18 100/66 97 04/16/17 07:35 04/16/17 07:35 04/16/17 07:35 04/16/17 07:35 04/16/17 07:35 Intake and Output: 04/16/17 04/16/17 06:59 18:59 Intake Total 100 Output Total 800 Balance -700 - Medications Medications: Current Medications Acetaminophen (Tylenol 325mg Tab) 650 mg PO Q6H PRN PRN Reason: Fever >100.4 F Last Admin: 04/14/17 11:35 Dose: 650 mg Benztropine Mesylate (Cogentin) 1 mg PO BID [facility] Last Admin: 04/16/17 11:09 Dose: 1 mg Dextrose (Dextrose 50% Inj) 50 ml IV Q6H PRN PRN Reason: Low blood sugar Emtricitabine (Emtriva) 200 mg PO Q48H [facility] Last Admin: 04/14/17 17:06 Dose: 200 mg Famotidine (Pepcid) 20 mg PO DAILY [facility] Last Admin: 04/16/17 11:07 Dose: 20 mg Ferrous Sulfate (Feosol) 325 mg PO DAILY [facility] Last Admin: 04/16/17 11:08 Dose: 325 mg Fluphenazine HCl (Prolixin) 5 mg PO BID [facility] Last Admin: 04/16/17 11:09 Dose: 5 mg Furosemide (Lasix) 40 mg IVP DAILY [facility] Last Admin: 04/16/17 11:25 Dose: Not Given Meropenem 500 mg/ Sodium (Chloride) 100 mls @ 100 mls/hr IVPB Q8 [facility] Last Admin: 04/16/17 05:09 Dose: 100 mls/hr Magnesium Sulfate/Dextrose (Magnesium Sulfate 1 Gm/100 Ml D5w) 1 gm in 100 mls @ 100 mls/hr IVPB ONCE ONE Stop: 04/16/17 11:57 Last Admin: 04/16/17 11:20 Dose: 100 mls/hr Insulin Aspart (Novolog) 0 unit SC ACHS [facility] PRN Reason: Protocol Last Admin: 04/16/17 07:26 Dose: Not Given Montelukast Sodium (Singulair) 10 mg PO HS [facility] Last Admin: 04/15/17 21:31 Dose: 10 mg Multivitamins (Hexavitamin) 1 tab PO DAILY [facility] Last Admin: 04/16/17 11:08 Dose: 1 tab Potassium Chloride (Potassium Chloride Oral Soln) 40 meq PO ONCE ONE Stop: 04/16/17 13:01 Raltegravir (Isentress) 400 mg PO BID [facility] Last Admin: 04/16/17 11:10 Dose: 400 mg Saccharomyces Boulardii (Florastor) 250 mg PO BID [facility] Last Admin: 04/16/17 11:07 Dose: 250 mg Saliva Substitute (First Magic Mouthwash) 5 ml PO Q4H [facility] Last Admin: 04/16/17 11:20 Dose: 5 ml Senna/Docusate Sodium (Senokot S 50 Mg-8.6 Mg) 1 tab PO HS PRN PRN Reason: Constipation Last Admin: 04/16/17 11:09 Dose: 1 tab Sertraline HCl (Zoloft) 50 mg PO DAILY [facility] Last Admin: 04/16/17 11:08 Dose: 50 mg Tenofovir Disoproxil Fumarate (Viread) 300 mg PO Q48H [facility] Last Admin: 04/14/17 17:06 Dose: 300 mg - Labs Labs: 04/16/17 10:35 04/16/17 10:35 - Constitutional Appears: Confused, Chronically Ill (obese) - Head Exam Head Exam: NORMAL INSPECTION - Eye Exam Eye Exam: Normal appearance - ENT Exam ENT Exam: Mucous Membranes Moist - Neck Exam Neck Exam: Normal Inspection (supple) - Respiratory Exam Respiratory Exam: Decreased Breath Sounds, NORMAL BREATHING PATTERN - Cardiovascular Exam Cardiovascular Exam: REGULAR RHYTHM, RRR - GI/Abdominal Exam GI & Abdominal Exam: Distended, Soft - Extremities Exam Extremities Exam: Pedal Edema (3+) Assessment and Plan (1) SUZANNE (acute kidney injury) Status: Acute (2) CHF (congestive heart failure) Status: Acute (3) HIV antibody positive Status: Acute (4) Hypokalemia Status: Acute (5) Lung cancer Status: Acute - Assessment and Plan (Free Text) Assessment: maintain lasix 24 hour urine protein / creatinine clearance
[2017-04-16 11:41] LABS: PLATELET COUNT 83 K/uL (130-400)
[2017-04-16] MEDS ORDERED: Potassium Chloride 20 mEq/15 ml LIQ UD PO ONE (13:00)
--- NOTE | 2017-04-16 13:04 | CP.PCM.PN ---
Subjective - Date & Time of Evaluation Date of Evaluation: 04/16/17 Time of Evaluation: 10:00 - Subjective Subjective: Patient offers no complaints. Objective - Vital Signs/Intake and Output Vital Signs (last 24 hours): Temp Pulse Resp BP Pulse Ox 97.3 F L 78 18 102/58 L 97 04/16/17 07:35 04/16/17 07:35 04/16/17 07:35 04/16/17 11:00 04/16/17 07:35 Intake and Output: 04/16/17 04/16/17 06:59 18:59 Intake Total 100 Output Total 800 Balance -700 - Medications Medications: Current Medications Acetaminophen (Tylenol 325mg Tab) 650 mg PO Q6H PRN PRN Reason: Fever >100.4 F Last Admin: 04/14/17 11:35 Dose: 650 mg Benztropine Mesylate (Cogentin) 1 mg PO BID [facility] Last Admin: 04/16/17 11:09 Dose: 1 mg Dextrose (Dextrose 50% Inj) 50 ml IV Q6H PRN PRN Reason: Low blood sugar Emtricitabine (Emtriva) 200 mg PO Q48H [facility] Last Admin: 04/14/17 17:06 Dose: 200 mg Famotidine (Pepcid) 20 mg PO DAILY [facility] Last Admin: 04/16/17 11:07 Dose: 20 mg Ferrous Sulfate (Feosol) 325 mg PO DAILY [facility] Last Admin: 04/16/17 11:08 Dose: 325 mg Fluphenazine HCl (Prolixin) 5 mg PO BID [facility] Last Admin: 04/16/17 11:09 Dose: 5 mg Furosemide (Lasix) 40 mg IVP DAILY [facility] Last Admin: 04/16/17 11:25 Dose: Not Given Meropenem 500 mg/ Sodium (Chloride) 100 mls @ 100 mls/hr IVPB Q8 [facility] Last Admin: 04/16/17 05:09 Dose: 100 mls/hr Insulin Aspart (Novolog) 0 unit SC ACHS [facility] PRN Reason: Protocol Last Admin: 04/16/17 12:11 Dose: Not Given Montelukast Sodium (Singulair) 10 mg PO HS [facility] Last Admin: 04/15/17 21:31 Dose: 10 mg Multivitamins (Hexavitamin) 1 tab PO DAILY [facility] Last Admin: 04/16/17 11:08 Dose: 1 tab Potassium Chloride (Potassium Chloride Oral Soln) 40 meq PO ONCE ONE Stop: 04/16/17 13:01 Raltegravir (Isentress) 400 mg PO BID [facility] Last Admin: 04/16/17 11:10 Dose: 400 mg Saccharomyces Boulardii (Florastor) 250 mg PO BID [facility] Last Admin: 04/16/17 11:07 Dose: 250 mg Saliva Substitute (First Magic Mouthwash) 5 ml PO Q4H [facility] Last Admin: 04/16/17 11:20 Dose: 5 ml Senna/Docusate Sodium (Senokot S 50 Mg-8.6 Mg) 1 tab PO HS PRN PRN Reason: Constipation Last Admin: 04/16/17 11:09 Dose: 1 tab Sertraline HCl (Zoloft) 50 mg PO DAILY [facility] Last Admin: 04/16/17 11:08 Dose: 50 mg Tenofovir Disoproxil Fumarate (Viread) 300 mg PO Q48H [facility] Last Admin: 04/14/17 17:06 Dose: 300 mg - Labs Labs: 04/16/17 10:35 04/16/17 10:35 - Constitutional Appears: No Acute Distress, Chronically Ill - Head Exam Head Exam: ATRAUMATIC, NORMAL INSPECTION, NORMOCEPHALIC - Eye Exam Eye Exam: EOMI, Normal appearance, PERRL Pupil Exam: NORMAL ACCOMODATION, PERRL - ENT Exam ENT Exam: Normal Exam Additional comments: Edentulous - Neck Exam Neck Exam: Normal Inspection - Respiratory Exam Respiratory Exam: Decreased Breath Sounds, Rhonchi, NORMAL BREATHING PATTERN - Cardiovascular Exam Cardiovascular Exam: REGULAR RHYTHM, +S1, +S2 - GI/Abdominal Exam GI & Abdominal Exam: Soft, Normal Bowel Sounds - Rectal Exam Rectal Exam: Deferred - Extremities Exam Additional comments: Moderate edema of upper and lower extremities - Back Exam Back Exam: NORMAL INSPECTION - Neurological Exam Neurological Exam: Alert, Oriented x3 Neuro motor strength exam: Left Upper Extremity: 2/1, Right Upper Extremity: 2/1 , Left Lower Extremity: 2/1, Right Lower Extremity: 2/1 - Psychiatric Exam Psychiatric exam: Normal Affect, Normal Mood - Skin Skin Exam: Intact, Pallor, Warm Assessment and Plan - Assessment and Plan (Free Text) Assessment: Patient examined and interviewed in the bed. Patient is fully alert and oriented X 3 today. Physical exam reveals chronically ill man in no acute distress. Breathing is non labored, shallow, there are ronchi on auscultation and occasional moist cough. Abdomen soft with active bowel sounds, tolerates diet well. There is edema to upper and lower extremities. Patient requires max assistance with repositioning and mobility. Albumin still low 2.2, after being replaced. There is Hypocalcemia. No evidence of Chvostek's sign. Price at BS, urine collection in process. Urine tea color. BP 102/58, O2Sat 97 % NC. Hb 9.9. Goals of care discussed with patient. he states being home alone and prefers to be that way. Three of his sons are in different States of [facility] and he has no close contacts with them. I brooke concern regarding his safety at home and possibility of NH placement . Patient categorically refused it. Code status discussed. Patient recalled signing DNR at [facility] but did not have copy of it, nor copy found on chart. I reviewed the meaning of DNR/DNI with patient and assisted him with completing the POLST. he choose DNR/DNI. Patient did not want to name any surrogate decision person.This was shared with [facility] and nursing. Impression * Chronically ill man in no acute distress Requires max assistance with ADLs * Diminished breath sounds with ronchi * Lives alone, has no good relationship with his children Suggestion * Agree with DNR/DNI * Max assistance with ADLs * PT * Would add Ca supplement * promote skin integrity P.George patient provided me with contact # for his sister Ermelinda Aguilar [phone]
--- NOTE | 2017-04-16 15:57 | RAD ---
HISTORY: rule out pneumonia COMPARISON: 04/09/2017 FINDINGS: LUNGS: Progressive multifocal infiltrates affecting left upper lobe, right lower lobe. PLEURA: No significant pleural effusion identified, no pneumothorax apparent. CARDIOVASCULAR: Cardiomegaly. No evidence of acute, significant cardiovascular disease. Venous access catheter in stable, satisfactory position.Incidental Finding(s): Postoperative changes related to sternotomy. OSSEOUS STRUCTURES: No significant abnormalities. VISUALIZED UPPER ABDOMEN: Normal. OTHER FINDINGS: None. IMPRESSION: Progressive multifocal and bilateral infiltrates.
[2017-04-16] MEDS: EMTRICITABINE 200 MG CAP PO SCH (17:03)
[2017-04-16] MEDS: Albumin Human 25% (12.5 gm/50 ml) IV SCH (18:29)
[2017-04-17] MEDS: Albumin Human 25% (12.5 gm/50 ml) IV SCH ×2 (00:30→05:30)
[2017-04-17] MEDS: Mag&Al/Simet/Diphen/Lido 237 ML KIT PO SCH ×6 (00:30→20:16)
[2017-04-17] MEDS: Meropenem 500 MG in Sodium Chloride 0.9% 100 ML IVPB SCH ×3 (06:30→21:07)
[2017-04-17 07:21] LABS: BASO # 0.1 K/uL (0.0-0.2); BASO % 0.8 % (0.0-2.0); EOS # 0.1 K/uL (0.0-0.7); EOS % 1.8 % (0.0-4.0); HEMATOCRIT 27.6 % (35.0-51.0); LYMPH # 0.7 K/uL (1.0-4.3); LYMPH % 10.5 % (20.0-40.0); MEAN CELL VOLUME 78.6 fL (80.0-94.0); MEAN CORPUSCULAR HEMOGLOBIN 24.7 pg (27.0-31.0); MEAN CORPUSCULAR HGB CONC 31.4 g/dL (33.0-37.0); MEAN PLATELET VOLUME 8.4 fL (7.2-11.7); MONO # 0.8 K/uL (0.0-0.8)
[2017-04-17 07:54] LABS: ALB/GLOB RATIO 0.7 (1.0-2.1); BILIRUBIN,TOTAL 0.5 mg/dL (0.2-1.3); TOTAL PROTEIN 5.2 g/dL (6.3-8.3)
[2017-04-17 07:55] LABS: CALCIUM 6.9 mg/dl (8.6-10.4); PHOSPHOROUS 4.4 mg/dL (2.5-4.5)
[2017-04-17] MEDS: (Novolog) Insulin Aspart, Recombinant 100 u/ml 10 ml vial SC SCH ×4 (08:10→22:15)
[2017-04-17] MEDS: Multiple Vitamins Tab PO SCH (09:12)
[2017-04-17] MEDS: Saccharomyces Boulardi 250 mg Cap PO SCH ×2 (09:12→18:03)
[2017-04-17] MEDS: Docusate-Senna 50 mg-8.6 mg Tab PO PRN (09:13)
--- NOTE | 2017-04-17 10:18 | CP.PCM.PN ---
Subjective - Date & Time of Evaluation Date of Evaluation: 04/16/17 Time of Evaluation: 13:05 - Subjective Subjective: No complaints. Objective - Vital Signs/Intake and Output Vital Signs (last 24 hours): Temp Pulse Resp BP Pulse Ox 97.4 F L 69 20 111/70 100 04/17/17 07:28 04/17/17 07:28 04/17/17 07:28 04/17/17 07:28 04/17/17 07:28 Intake and Output: 04/17/17 04/17/17 06:59 18:59 Intake Total 900 Output Total 700 Balance 200 - Medications Medications: Current Medications Acetaminophen (Tylenol 325mg Tab) 650 mg PO Q6H PRN PRN Reason: Fever >100.4 F Last Admin: 04/14/17 11:35 Dose: 650 mg Albumin Human (Albumin Human 25% (12.5 Gm/50 Ml)) 12.5 gm IV Q6H [facility] Stop: 04/21/17 18:01 Last Admin: 04/17/17 05:30 Dose: 12.5 gm Benztropine Mesylate (Cogentin) 1 mg PO BID [facility] Last Admin: 04/17/17 09:13 Dose: 1 mg Dextrose (Dextrose 50% Inj) 50 ml IV Q6H PRN PRN Reason: Low blood sugar Emtricitabine (Emtriva) 200 mg PO Q48H [facility] Last Admin: 04/16/17 17:03 Dose: 200 mg Famotidine (Pepcid) 20 mg PO DAILY [facility] Last Admin: 04/17/17 09:09 Dose: 20 mg Ferrous Sulfate (Feosol) 325 mg PO DAILY [facility] Last Admin: 04/16/17 11:08 Dose: 325 mg Fluphenazine HCl (Prolixin) 5 mg PO BID [facility] Last Admin: 04/17/17 09:13 Dose: 5 mg Furosemide (Lasix) 40 mg IVP DAILY [facility] Last Admin: 04/17/17 09:14 Dose: Not Given Meropenem 500 mg/ Sodium (Chloride) 100 mls @ 100 mls/hr IVPB Q8 [facility] Last Admin: 04/17/17 06:30 Dose: 100 mls/hr Insulin Aspart (Novolog) 0 unit SC ACHS [facility] PRN Reason: Protocol Last Admin: 04/17/17 08:10 Dose: Not Given Montelukast Sodium (Singulair) 10 mg PO HS [facility] Last Admin: 04/16/17 22:22 Dose: 10 mg Multivitamins (Hexavitamin) 1 tab PO DAILY [facility] Last Admin: 04/17/17 09:12 Dose: 1 tab Raltegravir (Isentress) 400 mg PO BID [facility] Last Admin: 04/17/17 09:15 Dose: 400 mg Saccharomyces Boulardii (Florastor) 250 mg PO BID [facility] Last Admin: 04/17/17 09:12 Dose: 250 mg Saliva Substitute (First Magic Mouthwash) 5 ml PO Q4H [facility] Last Admin: 04/17/17 09:08 Dose: 5 ml Senna/Docusate Sodium (Senokot S 50 Mg-8.6 Mg) 1 tab PO HS PRN PRN Reason: Constipation Last Admin: 04/17/17 09:13 Dose: 1 tab Sertraline HCl (Zoloft) 50 mg PO DAILY [facility] Last Admin: 04/17/17 09:12 Dose: 50 mg Tenofovir Disoproxil Fumarate (Viread) 300 mg PO Q48H [facility] Last Admin: 04/16/17 17:02 Dose: 300 mg - Labs Labs: 04/17/17 07:15 04/17/17 07:15 - Head Exam Head Exam: ATRAUMATIC - Eye Exam Eye Exam: Normal appearance - Respiratory Exam Respiratory Exam: NORMAL BREATHING PATTERN - Cardiovascular Exam Cardiovascular Exam: +S1, +S2 - GI/Abdominal Exam GI & Abdominal Exam: Normal Bowel Sounds Assessment and Plan (1) Anemia Assessment & Plan: HIV and iron deficiency IV iron when clear of infection Status: Acute (2) Thrombocytopenia Assessment & Plan: resolved Status: Acute
--- NOTE | 2017-04-17 16:40 | CP.PCM.PN ---
Subjective - Date & Time of Evaluation Date of Evaluation: 04/17/17 Time of Evaluation: 09:05 - Subjective Subjective: PGY2 medicine note for Dr. Stanley: Patient seen and examined. Patient very alert today. Patient admits he cannot take care of himself and is agreeable for fpc placement. Patient has said on multiple occasions that he lived at home alone but per [facility], patient was a intermediate frame tender resident there. It is unclear if patient aware he is there for prison placement. Patient reports better appetite today, denies shortness of breath. Objective - Vital Signs/Intake and Output Vital Signs (last 24 hours): Temp Pulse Resp BP Pulse Ox 98.8 F 76 20 114/69 100 04/17/17 15:00 04/17/17 15:00 04/17/17 15:00 04/17/17 15:00 04/17/17 07:28 Intake and Output: 04/17/17 04/17/17 06:59 18:59 Intake Total 900 650 Output Total 700 600 Balance 200 50 - Medications Medications: Current Medications Acetaminophen (Tylenol 325mg Tab) 650 mg PO Q6H PRN PRN Reason: Fever >100.4 F Last Admin: 04/14/17 11:35 Dose: 650 mg Benztropine Mesylate (Cogentin) 1 mg PO BID [facility] Last Admin: 04/17/17 09:13 Dose: 1 mg Dextrose (Dextrose 50% Inj) 50 ml IV Q6H PRN PRN Reason: Low blood sugar Emtricitabine (Emtriva) 200 mg PO Q48H [facility] Last Admin: 04/16/17 17:03 Dose: 200 mg Famotidine (Pepcid) 20 mg PO DAILY [facility] Last Admin: 04/17/17 09:09 Dose: 20 mg Ferrous Sulfate (Feosol) 325 mg PO DAILY [facility] Last Admin: 04/17/17 10:50 Dose: 325 mg Fluphenazine HCl (Prolixin) 5 mg PO BID [facility] Last Admin: 04/17/17 09:13 Dose: 5 mg Furosemide (Lasix) 40 mg IVP DAILY [facility] Last Admin: 04/17/17 09:14 Dose: Not Given Meropenem 500 mg/ Sodium (Chloride) 100 mls @ 100 mls/hr IVPB Q8 [facility] Last Admin: 04/17/17 14:14 Dose: 100 mls/hr Albumin Human (Albumin Human 25% (12.5 Gm/50 Ml)) 50 mls @ 50 mls/hr IV Q6 [facility] Stop: 04/21/17 18:01 Last Admin: 04/17/17 12:36 Dose: 50 mls/hr Insulin Aspart (Novolog) 0 unit SC ACHS [facility] PRN Reason: Protocol Last Admin: 04/17/17 11:51 Dose: Not Given Montelukast Sodium (Singulair) 10 mg PO HS [facility] Last Admin: 04/16/17 22:22 Dose: 10 mg Multivitamins (Hexavitamin) 1 tab PO DAILY [facility] Last Admin: 04/17/17 09:12 Dose: 1 tab Raltegravir (Isentress) 400 mg PO BID [facility] Last Admin: 04/17/17 09:15 Dose: 400 mg Saccharomyces Boulardii (Florastor) 250 mg PO BID [facility] Last Admin: 04/17/17 09:12 Dose: 250 mg Saliva Substitute (First Magic Mouthwash) 5 ml PO Q4H [facility] Last Admin: 04/17/17 12:50 Dose: 5 ml Senna/Docusate Sodium (Senokot S 50 Mg-8.6 Mg) 1 tab PO HS PRN PRN Reason: Constipation Last Admin: 04/17/17 09:13 Dose: 1 tab Sertraline HCl (Zoloft) 50 mg PO DAILY [facility] Last Admin: 04/17/17 09:12 Dose: 50 mg Tenofovir Disoproxil Fumarate (Viread) 300 mg PO Q48H [facility] Last Admin: 04/16/17 17:02 Dose: 300 mg - Labs Labs: 04/17/17 07:15 04/17/17 07:15 - Constitutional Appears: No Acute Distress, Chronically Ill - Head Exam Head Exam: ATRAUMATIC, NORMOCEPHALIC - Eye Exam Eye Exam: EOMI - ENT Exam ENT Exam: Mucous Membranes Moist - Respiratory Exam Respiratory Exam: Decreased Breath Sounds, Rhonchi. absent: Respiratory Distress Additional comments: right chest chemotherapy port - Cardiovascular Exam Cardiovascular Exam: +S1, +S2 - GI/Abdominal Exam GI & Abdominal Exam: Soft, Normal Bowel Sounds. absent: Tenderness - Exam Additional comments: silverman catheter in place - Extremities Exam Extremities Exam: Pedal Edema (2+ pitting) - Neurological Exam Neurological Exam: Alert, Awake - Psychiatric Exam Psychiatric exam: Normal Affect - Skin Skin Exam: Dry, Warm Assessment and Plan - Assessment and Plan (Free Text) Assessment: Elevated creatinine 04/17: 24h urine collection: urine volume 825, protein 2862.8 04/16: Patient followed by nephrology, Dr. Diallo. Urine output 600cc over 24 hours. 24 hour urine protein / creatinine clearance in process. 04/15: Silverman in place, good urine output. f/u bladder scan. 04/12: minimal output per silverman. Per nursing, urine is leaking around silverman and last bladder scan showed 12mL in bladder. Creatinine unchanged. Silverman catheter was changed yesterday by Dr. Paula 04/11: minimal urine output per silverman. Attempted to advance silverman without improvement in urine output. Discussed with Dr. Paula- will investigate and potentially exchange silverman today 04/10: bladder scan with >1000cc urine 04/09/17: bladder US- complex cystic mass left and inferior to bladder, 812 cc urine present scrotum and penis is edematous and meatus cannot be identified Dr. Bailey Paula consulted for urinary retention, will see patient today to insert silverman catheter will keep NPO in case patient needs OR procedure Nephrology, Dr. Domínguez, on the case- help appreciated Sepsis secondary to UTI Urine culture from 04/10/17 negative for growth New silverman placed 04/10/17 but with poor urine output-may be obstructed. urine sample was collected, sent for UA, culture Continue Meropenem 500mg (started on 03/31), will F/U with ID regarding duration of treatment Started Florastor 04/05 Patient was started on Primaxin on 03/24 and was discontinued 03/31 Currently afebrile, WBC 4.2 Silverman was inserted on 03/22 - Silverman was discontinued 04/01. N Urine culture from 03/22- Proteus Mirabilis Blood culture from 03/21- Proteus Mirabilis Repeat blood culture 03/29: No growth after 5 days Anasarca 04/16: Start Albumin 12.5gm Q6H x 5 days. Lasix 40mg IVP qd already on. 04/15: albumin steady at 1.7, likely third spacing. 04/12: will give albumin once daily x 3 doses Dyspnea- Secondary to COPD v. CHF v. Lung CA v. Pneumonia 04/16: repeat CXR - Progressive multifocal infiltrates affecting left upper lobe , right lower lobe. Continue IV Abx. Continue BiPAP. Start Albumin 12.5gm Q6H x 5 days and continue Lasix 40mg IVP qd. 04/15: saturating well on NC. BiPAP ordered to be place HS, and PRN during the day. Patient would benefit from BiPAP however he prefers nasal canula at this time. Encourage patient to wear BiPAP Mycoplasma negative Blood cultures negative 03/29: CXR shows minimal change interval from previous study; chronic changes in LML and LLL. Hypoglycemia patient with two hypoglycemic episodes. Starting D10 @ 40cc/h Change in Mental Status 04/17: AAOx3 today. 04/15: patient more alert today, AAOx3 Waxing and waning alertness- patient more alert today Head CT: no mass effect, edema, bleed. atrophy seen ABG 04/10: pH 7.45, pCO2 39, pO2 82 Diarrhea 04/15: diarrhea today. c.diff Negative patient has been on multiple IV antibiotics and is now having large volume diarrhea 04/12/17: stopping flagyl, C. diff negative Pancytopenia 04/17: plt 156, Hgb 8.7 04/15: plateletes 126. Hgb 8.8. 1u PRBC ready. Transfused 2 units PRBC 04/05. Now Hgb 10.1 Microcytic Anemia- chronic disease v. iron deficiency 04/04: Hgb 8.1 04/02: Per Dr. Connell, consider GI eval once acute illness resolves Feosol 325mg PO daily Likely secondary to sepsis or HIV Hold off Lovenox Per Dr. Connell do not transfuse platelets unless <20 Continue to monitor Mouth Sores Magic Mouthwash Q4H Electrolyte deficiency Prior Hx. Currently stable. Monitor daily, supplement as needed Obstructive Sleep Apnea BiPAP ordered for night time use- patient should go to fpc with BIPAP at night He has been non-compliant with BiPAP. Encourage use. History of COPD 04/17: Continue BiPAP HS (BiPAP may be placed PRN during the day). 04/15: saturating well on NC. BiPAP ordered to be place HS, and PRN during the day. On n/c. Duonebs as needed PRN Singulair 10mg PO daily History of HIV % CD4 cells 59, Absolute CD4 158 ; % [id number] 8, Absolute CD8 23 04/02: ID Consulted, Dr La, f/u recs - Truvada 1 tab PO daily (home med) Isentress 400mg PO BID (home med) HTN 04/15-04/17: BP stable/low, continue to monitor. BP meds held due to hypotension Previous Echo done on 02/26/17- EF 62% (see full report) HLD 04/03: Stopped Crestor 20mg PO HS 2/2 elevated LFTs Transaminitis improved Crestor held Cont to monitor Psychiatric history- questionable Schizophrenia prolixin 5mg PO BID cogentin 1mg PO BID Zoloft 50mg PO daily Discontinued Atarax and Trazodone due to lethargy Transient hyperglycemia likely secondary to steroid administration ISS Continue to monitor No documented history of DM Accuchecks A1c 6.2 Prophylaxis Pepcid 20mg PO daily No chemical VTE prophylaxis due to thrombocytopenia PT Eval and Treat Palliative consult, Katy Kramer- help appreciated Code Status: DNR/DNI (patient spoke with Katy 04/16 and filled paperwork). when patient stable, may transfer back to [facility] All medical management as per Dr. Stanley
--- NOTE | 2017-04-17 16:48 | CP.PCM.PN ---
Subjective - Date & Time of Evaluation Date of Evaluation: 04/17/17 Time of Evaluation: 07:00 - Subjective Subjective: EVENTS NOTED IV RXI IN PROGRESS Objective - Vital Signs/Intake and Output Vital Signs (last 24 hours): Temp Pulse Resp BP Pulse Ox 98.8 F 76 20 114/69 100 04/17/17 15:00 04/17/17 15:00 04/17/17 15:00 04/17/17 15:00 04/17/17 07:28 Intake and Output: 04/17/17 04/17/17 06:59 18:59 Intake Total 900 650 Output Total 700 600 Balance 200 50 - Medications Medications: Current Medications Acetaminophen (Tylenol 325mg Tab) 650 mg PO Q6H PRN PRN Reason: Fever >100.4 F Last Admin: 04/14/17 11:35 Dose: 650 mg Benztropine Mesylate (Cogentin) 1 mg PO BID [facility] Last Admin: 04/17/17 09:13 Dose: 1 mg Dextrose (Dextrose 50% Inj) 50 ml IV Q6H PRN PRN Reason: Low blood sugar Emtricitabine (Emtriva) 200 mg PO Q48H [facility] Last Admin: 04/16/17 17:03 Dose: 200 mg Famotidine (Pepcid) 20 mg PO DAILY [facility] Last Admin: 04/17/17 09:09 Dose: 20 mg Ferrous Sulfate (Feosol) 325 mg PO DAILY [facility] Last Admin: 04/17/17 10:50 Dose: 325 mg Fluphenazine HCl (Prolixin) 5 mg PO BID [facility] Last Admin: 04/17/17 09:13 Dose: 5 mg Furosemide (Lasix) 40 mg IVP DAILY [facility] Last Admin: 04/17/17 09:14 Dose: Not Given Meropenem 500 mg/ Sodium (Chloride) 100 mls @ 100 mls/hr IVPB Q8 [facility] Last Admin: 04/17/17 14:14 Dose: 100 mls/hr Albumin Human (Albumin Human 25% (12.5 Gm/50 Ml)) 50 mls @ 50 mls/hr IV Q6 [facility] Stop: 04/21/17 18:01 Last Admin: 04/17/17 12:36 Dose: 50 mls/hr Insulin Aspart (Novolog) 0 unit SC ACHS [facility] PRN Reason: Protocol Last Admin: 04/17/17 11:51 Dose: Not Given Montelukast Sodium (Singulair) 10 mg PO HS [facility] Last Admin: 04/16/17 22:22 Dose: 10 mg Multivitamins (Hexavitamin) 1 tab PO DAILY [facility] Last Admin: 04/17/17 09:12 Dose: 1 tab Raltegravir (Isentress) 400 mg PO BID [facility] Last Admin: 04/17/17 09:15 Dose: 400 mg Saccharomyces Boulardii (Florastor) 250 mg PO BID [facility] Last Admin: 04/17/17 09:12 Dose: 250 mg Saliva Substitute (First Magic Mouthwash) 5 ml PO Q4H [facility] Last Admin: 04/17/17 12:50 Dose: 5 ml Senna/Docusate Sodium (Senokot S 50 Mg-8.6 Mg) 1 tab PO HS PRN PRN Reason: Constipation Last Admin: 04/17/17 09:13 Dose: 1 tab Sertraline HCl (Zoloft) 50 mg PO DAILY [facility] Last Admin: 04/17/17 09:12 Dose: 50 mg Tenofovir Disoproxil Fumarate (Viread) 300 mg PO Q48H [facility] Last Admin: 04/16/17 17:02 Dose: 300 mg - Labs Labs: 04/17/17 07:15 04/17/17 07:15 - Constitutional Appears: Non-toxic, Cachectic, Chronically Ill - Head Exam Head Exam: NORMOCEPHALIC - Eye Exam Eye Exam: PERRL - ENT Exam ENT Exam: Mucous Membranes Dry - Neck Exam Neck Exam: absent: Lymphadenopathy - Respiratory Exam Respiratory Exam: Decreased Breath Sounds - Cardiovascular Exam Cardiovascular Exam: REGULAR RHYTHM - GI/Abdominal Exam GI & Abdominal Exam: Distended, Soft Assessment and Plan (1) Anemia Status: Acute (2) CHF (congestive heart failure) Status: Acute (3) COPD (chronic obstructive pulmonary disease) Status: Acute (4) Change in mental status Status: Acute (5) Hypokalemia Status: Acute (6) Sepsis Status: Acute (7) Chest pain Status: Acute
[2017-04-18] MEDS: Mag&Al/Simet/Diphen/Lido 237 ML KIT PO SCH ×6 (00:20→20:35)
[2017-04-18] MEDS: Meropenem 500 MG in Sodium Chloride 0.9% 100 ML IVPB SCH ×3 (06:20→21:35)
[2017-04-18 07:17] LABS: BASO # 0.1 K/uL (0.0-0.2); BASO % 1.2 % (0.0-2.0); EOS # 0.1 K/uL (0.0-0.7); EOS % 2.1 % (0.0-4.0); HEMATOCRIT 24.8 % (35.0-51.0); LYMPH # 0.7 K/uL (1.0-4.3); LYMPH % 10.9 % (20.0-40.0); MEAN CELL VOLUME 78.9 fL (80.0-94.0); MEAN CORPUSCULAR HEMOGLOBIN 24.8 pg (27.0-31.0); MEAN CORPUSCULAR HGB CONC 31.4 g/dL (33.0-37.0); MEAN PLATELET VOLUME 8.3 fL (7.2-11.7); MONO # 0.6 K/uL (0.0-0.8); MONO % 10.1 % (0.0-10.0); RED CELL DISTRIBUTION WIDTH 29.4 % (11.5-14.5); WHITE BLOOD COUNT 6.1 K/uL (4.8-10.8)
[2017-04-18 07:25] LABS: ALB/GLOB RATIO 0.9 (1.0-2.1); BILIRUBIN,TOTAL 0.5 mg/dL (0.2-1.3); CALCIUM 7.2 mg/dl (8.6-10.4); MAGNESIUM 1.9 mg/dL (1.6-2.3); PHOSPHOROUS 4.9 mg/dL (2.5-4.5); POTASSIUM 3.3 mmol/L (3.6-5.2); TOTAL PROTEIN 5.2 g/dL (6.3-8.3)
[2017-04-18] MEDS: Saccharomyces Boulardi 250 mg Cap PO SCH ×2 (09:25→17:21)
[2017-04-18] MEDS: Multiple Vitamins Tab PO SCH (09:25)
[2017-04-18] MEDS: Docusate-Senna 50 mg-8.6 mg Tab PO PRN (09:29)
[2017-04-18] MEDS ORDERED: Potassium Chloride 20 mEq ER Tab PO ONE (10:04)
--- NOTE | 2017-04-18 11:07 | CP.PCM.PN ---
Subjective - Date & Time of Evaluation Date of Evaluation: 04/18/17 Time of Evaluation: 11:05 - Subjective Subjective: Same lethargy Cannot obtain ROS creat remains elevated nephrotic range proteinuria confirmed less edematous Objective - Vital Signs/Intake and Output Vital Signs (last 24 hours): Temp Pulse Resp BP Pulse Ox 97.7 F 74 20 110/70 98 04/18/17 07:33 04/18/17 07:33 04/18/17 07:33 04/18/17 09:26 04/18/17 07:33 Intake and Output: 04/18/17 04/18/17 06:59 18:59 Intake Total 1050 Output Total 1001 Balance 49 - Medications Medications: Current Medications Acetaminophen (Tylenol 325mg Tab) 650 mg PO Q6H PRN PRN Reason: Fever >100.4 F Last Admin: 04/14/17 11:35 Dose: 650 mg Benztropine Mesylate (Cogentin) 1 mg PO BID [facility] Last Admin: 04/18/17 09:29 Dose: 1 mg Dextrose (Dextrose 50% Inj) 50 ml IV Q6H PRN PRN Reason: Low blood sugar Emtricitabine (Emtriva) 200 mg PO Q48H [facility] Last Admin: 04/16/17 17:03 Dose: 200 mg Famotidine (Pepcid) 20 mg PO DAILY [facility] Last Admin: 04/18/17 09:25 Dose: 20 mg Ferrous Sulfate (Feosol) 325 mg PO DAILY [facility] Last Admin: 04/18/17 09:25 Dose: 325 mg Fluphenazine HCl (Prolixin) 5 mg PO BID [facility] Last Admin: 04/17/17 18:04 Dose: 5 mg Meropenem 500 mg/ Sodium (Chloride) 100 mls @ 100 mls/hr IVPB Q8 [facility] Last Admin: 04/18/17 06:20 Dose: 100 mls/hr Albumin Human (Albumin Human 25% (12.5 Gm/50 Ml)) 50 mls @ 50 mls/hr IV Q6 [facility] Stop: 04/21/17 18:01 Last Admin: 04/18/17 05:15 Dose: 50 mls/hr Potassium Chloride (Potassium Chloride 20 Meq/100 Ml) 20 meq in 100 mls @ 50 mls/hr IVPB ONCE ONE Stop: 04/18/17 12:02 Insulin Aspart (Novolog) 0 unit SC ACHS [facility] PRN Reason: Protocol Last Admin: 04/17/17 22:15 Dose: Not Given Montelukast Sodium (Singulair) 10 mg PO HS [facility] Last Admin: 04/17/17 21:07 Dose: 10 mg Multivitamins (Hexavitamin) 1 tab PO DAILY [facility] Last Admin: 04/18/17 09:25 Dose: 1 tab Raltegravir (Isentress) 400 mg PO BID [facility] Last Admin: 04/18/17 09:28 Dose: 400 mg Saccharomyces Boulardii (Florastor) 250 mg PO BID [facility] Last Admin: 04/18/17 09:25 Dose: 250 mg Saliva Substitute (First Magic Mouthwash) 5 ml PO Q4H [facility] Last Admin: 04/18/17 04:36 Dose: 5 ml Senna/Docusate Sodium (Senokot S 50 Mg-8.6 Mg) 1 tab PO HS PRN PRN Reason: Constipation Last Admin: 04/18/17 09:29 Dose: 1 tab Sertraline HCl (Zoloft) 50 mg PO DAILY [facility] Last Admin: 04/18/17 09:25 Dose: 50 mg Tenofovir Disoproxil Fumarate (Viread) 300 mg PO Q48H [facility] Last Admin: 04/16/17 17:02 Dose: 300 mg - Labs Labs: 04/18/17 07:05 04/18/17 07:05 - Constitutional Appears: No Acute Distress, Chronically Ill - Head Exam Head Exam: ATRAUMATIC, NORMAL INSPECTION - Eye Exam Eye Exam: EOMI, Normal appearance - Neck Exam Neck Exam: Normal Inspection. absent: Tenderness - Respiratory Exam Respiratory Exam: Rhonchi, NORMAL BREATHING PATTERN - Cardiovascular Exam Cardiovascular Exam: REGULAR RHYTHM, +S1 - GI/Abdominal Exam GI & Abdominal Exam: Soft. absent: Tenderness - Extremities Exam Extremities Exam: Pedal Edema. absent: Tenderness - Neurological Exam Neurological Exam: Altered, CN II-XII Intact - Skin Skin Exam: Dry, Warm Assessment and Plan (1) SUAZNNE (acute kidney injury) Status: Acute (2) Obstructive uropathy Status: Acute (3) CHF (congestive heart failure) Status: Acute (4) COPD (chronic obstructive pulmonary disease) Status: Acute (5) Sepsis Status: Acute (6) Lung cancer Status: Acute (7) HIV antibody positive Status: Acute - Assessment and Plan (Free Text) Plan: stop diuretics check urine eos
[2017-04-18] MEDS: (Novolog) Insulin Aspart, Recombinant 100 u/ml 10 ml vial SC SCH ×4 (12:00→21:51)
--- NOTE | 2017-04-18 15:14 | CP.PCM.PN ---
Subjective - Date & Time of Evaluation Date of Evaluation: 04/18/17 Time of Evaluation: 09:25 - Subjective Subjective: PGY2 medicine note for Dr. Stanley Patient seen and examined. Patient alert but states he feels tired today. Objective - Vital Signs/Intake and Output Vital Signs (last 24 hours): Temp Pulse Resp BP Pulse Ox 97.7 F 74 20 110/70 98 04/18/17 07:33 04/18/17 07:33 04/18/17 07:33 04/18/17 09:26 04/18/17 07:33 Intake and Output: 04/18/17 04/18/17 06:59 18:59 Intake Total 1050 Output Total 1001 Balance 49 - Medications Medications: Current Medications Acetaminophen (Tylenol 325mg Tab) 650 mg PO Q6H PRN PRN Reason: Fever >100.4 F Last Admin: 04/14/17 11:35 Dose: 650 mg Benztropine Mesylate (Cogentin) 1 mg PO BID [facility] Last Admin: 04/18/17 09:29 Dose: 1 mg Dextrose (Dextrose 50% Inj) 50 ml IV Q6H PRN PRN Reason: Low blood sugar Emtricitabine (Emtriva) 200 mg PO Q48H [facility] Last Admin: 04/16/17 17:03 Dose: 200 mg Famotidine (Pepcid) 20 mg PO DAILY [facility] Last Admin: 04/18/17 09:25 Dose: 20 mg Ferric Sodium Gluconate Complex (Ferrlecit) 125 mg IVPB DAILY [facility] Stop: 04/27/17 10:01 Ferrous Sulfate (Feosol) 325 mg PO DAILY [facility] Last Admin: 04/18/17 09:25 Dose: 325 mg Fluphenazine HCl (Prolixin) 5 mg PO BID [facility] Last Admin: 04/18/17 14:45 Dose: 5 mg Meropenem 500 mg/ Sodium (Chloride) 100 mls @ 100 mls/hr IVPB Q8 [facility] Last Admin: 04/18/17 14:31 Dose: 100 mls/hr Albumin Human (Albumin Human 25% (12.5 Gm/50 Ml)) 50 mls @ 50 mls/hr IV Q6 [facility] Stop: 04/21/17 18:01 Last Admin: 04/18/17 12:10 Dose: 50 mls/hr Insulin Aspart (Novolog) 0 unit SC ACHS [facility] PRN Reason: Protocol Last Admin: 04/18/17 12:59 Dose: Not Given Montelukast Sodium (Singulair) 10 mg PO HS [facility] Last Admin: 04/17/17 21:07 Dose: 10 mg Multivitamins (Hexavitamin) 1 tab PO DAILY [facility] Last Admin: 04/18/17 09:25 Dose: 1 tab Raltegravir (Isentress) 400 mg PO BID [facility] Last Admin: 04/18/17 09:28 Dose: 400 mg Saccharomyces Boulardii (Florastor) 250 mg PO BID [facility] Last Admin: 04/18/17 09:25 Dose: 250 mg Saliva Substitute (First Magic Mouthwash) 5 ml PO Q4H [facility] Last Admin: 04/18/17 13:13 Dose: 5 ml Senna/Docusate Sodium (Senokot S 50 Mg-8.6 Mg) 1 tab PO HS PRN PRN Reason: Constipation Last Admin: 04/18/17 09:29 Dose: 1 tab Sertraline HCl (Zoloft) 50 mg PO DAILY [facility] Last Admin: 04/18/17 09:25 Dose: 50 mg Tenofovir Disoproxil Fumarate (Viread) 300 mg PO Q48H [facility] Last Admin: 04/16/17 17:02 Dose: 300 mg - Labs Labs: 04/18/17 07:05 04/18/17 07:05 - Constitutional Appears: No Acute Distress, Chronically Ill - Head Exam Head Exam: ATRAUMATIC, NORMOCEPHALIC - Eye Exam Eye Exam: EOMI - ENT Exam ENT Exam: Mucous Membranes Moist - Respiratory Exam Respiratory Exam: Decreased Breath Sounds. absent: Respiratory Distress Additional comments: right chest port - Cardiovascular Exam Cardiovascular Exam: +S1, +S2 - GI/Abdominal Exam GI & Abdominal Exam: Soft, Normal Bowel Sounds. absent: Tenderness - Exam Additional comments: silverman - Extremities Exam Extremities Exam: Pedal Edema (2+ pitting bilaterally) - Neurological Exam Neurological Exam: Alert, Awake - Skin Skin Exam: Dry, Warm Assessment and Plan - Assessment and Plan (Free Text) Assessment: Elevated creatinine 04/18: 24h urine collection consistent with nephrotic proteinuria. urine eosinophils ordered 04/17: 24h urine collection: urine volume 825, protein 2862.8 04/16: Patient followed by nephrology, Dr. Diallo. Urine output 600cc over 24 hours. 24 hour urine protein / creatinine clearance in process. 04/15: Silverman in place, good urine output. f/u bladder scan. 04/12: minimal output per silverman. Per nursing, urine is leaking around silverman and last bladder scan showed 12mL in bladder. Creatinine unchanged. Silverman catheter was changed yesterday by Dr. Paula 04/11: minimal urine output per silverman. Attempted to advance silverman without improvement in urine output. Discussed with Dr. Paula- will investigate and potentially exchange silverman today 04/10: bladder scan with >1000cc urine 04/09/17: bladder US- complex cystic mass left and inferior to bladder, 812 cc urine present scrotum and penis is edematous and meatus cannot be identified Dr. Bailey Paula consulted for urinary retention, will see patient today to insert silverman catheter will keep NPO in case patient needs OR procedure Nephrology, Dr. Domínguez, on the case- help appreciated Sepsis secondary to UTI resolving Urine culture from 04/10/17 negative for growth New silverman placed 04/10/17 but with poor urine output-may be obstructed. urine sample was collected, sent for UA, culture Continue Meropenem 500mg (started on 03/31), will F/U with ID regarding duration of treatment Started Florastor 04/05 Patient was started on Primaxin on 03/24 and was discontinued 03/31 Currently afebrile, WBC 4.2 Silverman was inserted on 03/22 - Silverman was discontinued 04/01. N Urine culture from 03/22- Proteus Mirabilis Blood culture from 03/21- Proteus Mirabilis Repeat blood culture 03/29: No growth after 5 days Anasarca 04/18: continue albumin. nephrotic proteinuria seen 24h urine collection, which may explain patient's anasarca 04/16: Start Albumin 12.5gm Q6H x 5 days. Lasix 40mg IVP qd already on. 04/15: albumin steady at 1.7, likely third spacing. 04/12: will give albumin once daily x 3 doses Dyspnea- Secondary to COPD v. CHF v. Lung CA v. Pneumonia 04/16: repeat CXR - Progressive multifocal infiltrates affecting left upper lobe , right lower lobe. Continue IV Abx. Continue BiPAP. Start Albumin 12.5gm Q6H x 5 days and continue Lasix 40mg IVP qd. 04/15: saturating well on NC. BiPAP ordered to be place HS, and PRN during the day. Patient would benefit from BiPAP however he prefers nasal canula at this time. Encourage patient to wear BiPAP Mycoplasma negative Blood cultures negative 03/29: CXR shows minimal change interval from previous study; chronic changes in LML and LLL. Change in Mental Status 04/18: AAOx3 today. 04/15: patient more alert today, AAOx3 Waxing and waning alertness- patient more alert today Head CT: no mass effect, edema, bleed. atrophy seen ABG 04/10: pH 7.45, pCO2 39, pO2 82 Diarrhea 04/15: diarrhea today. c.diff Negative patient has been on multiple IV antibiotics and is now having large volume diarrhea 04/12/17: stopping flagyl, C. diff negative Pancytopenia 04/18: plt 142, Hgb7.8. will start ferlicit in place of feosol 04/15: plateletes 126. Hgb 8.8. 1u PRBC ready. Transfused 2 units PRBC 04/05. Now Hgb 10.1 Microcytic Anemia- chronic disease v. iron deficiency 04/04: Hgb 8.1 04/02: Per Dr. Connell, consider GI eval once acute illness resolves Likely secondary to sepsis or HIV Hold off Lovenox Per Dr. Connell do not transfuse platelets unless <20 Continue to monitor Mouth Sores Magic Mouthwash Q4H Electrolyte deficiency Prior Hx. Currently stable. Monitor daily, supplement as needed Obstructive Sleep Apnea BiPAP ordered for night time use- patient should go to prison with BIPAP at night He has been non-compliant with BiPAP. Encourage use. History of COPD 04/18: Continue BiPAP HS (BiPAP may be placed PRN during the day). 04/15: saturating well on NC. BiPAP ordered to be place HS, and PRN during the day. On n/c. Duonebs as needed PRN Singulair 10mg PO daily History of HIV % CD4 cells 59, Absolute CD4 158 ; % [id number], Absolute CD8 23 04/02: ID Consulted, Dr La, f/u recs - Truvada 1 tab PO daily (home med) Isentress 400mg PO BID (home med) HTN 04/15-04/18: BP stable/low, continue to monitor. BP meds held due to hypotension Previous Echo done on 02/26/17- EF 62% (see full report) HLD 04/03: Stopped Crestor 20mg PO HS 2/2 elevated LFTs Transaminitis improved Crestor held Cont to monitor Psychiatric history- questionable Schizophrenia prolixin 5mg PO BID cogentin 1mg PO BID Zoloft 50mg PO daily Discontinued Atarax and Trazodone due to lethargy Transient hyperglycemia likely secondary to steroid administration ISS Continue to monitor No documented history of DM Accuchecks A1c 6.2 Prophylaxis Pepcid 20mg PO daily No chemical VTE prophylaxis due to thrombocytopenia PT Eval and Treat Palliative consult, Katy rKamer- help appreciated Code Status: DNR/DNI (patient spoke with Katy 04/16 and filled paperwork). when patient stable, may transfer back to [facility] All medical management as per Dr. Stanley
[2017-04-18] MEDS: EMTRICITABINE 200 MG CAP PO SCH (16:48)
[2017-04-18 20:30] LABS: RBC URINE 23 /hpf (0-3); URINE BACTERIA FEW (<OCC); URINE BILIRUBIN NEGATIVE (NEGATIVE); URINE BLOOD 3+ (NEGATIVE); URINE COLOR Yellow (YELLOW); URINE GLUCOSE (UA) 3+ mg/dL (Normal); URINE KETONE NEGATIVE (NEGATIVE); URINE LEUKOCYTE ESTERASE 3+ Leu/uL (Negative); URINE PROTEIN 2+ mg/dL (NEGATIVE); URINE UROBILINOGEN NORMAL mg/dL (0.2-1.0); WBC CLUMPS FEW /hpf; WBC URINE 159 /hpf (0-5)
[2017-04-19] MEDS: Mag&Al/Simet/Diphen/Lido 237 ML KIT PO SCH ×6 (00:17→21:19)
--- NOTE | 2017-04-19 02:16 | CP.PCM.PN ---
Subjective - Date & Time of Evaluation Date of Evaluation: 04/18/17 Time of Evaluation: 15:00 - Subjective Subjective: Feels tired Objective - Vital Signs/Intake and Output Vital Signs (last 24 hours): Temp Pulse Resp BP Pulse Ox 97.8 F 74 20 117/73 100 04/19/17 00:00 04/19/17 00:00 04/19/17 00:00 04/19/17 00:00 04/19/17 00:00 Intake and Output: 04/18/17 04/19/17 18:59 06:59 Intake Total 500 400 Output Total 601 400 Balance -101 0 - Medications Medications: Current Medications Acetaminophen (Tylenol 325mg Tab) 650 mg PO Q6H PRN PRN Reason: Fever >100.4 F Last Admin: 04/14/17 11:35 Dose: 650 mg Benztropine Mesylate (Cogentin) 1 mg PO BID [facility] Last Admin: 04/18/17 17:21 Dose: 1 mg Dextrose (Dextrose 50% Inj) 50 ml IV Q6H PRN PRN Reason: Low blood sugar Emtricitabine (Emtriva) 200 mg PO Q48H [facility] Last Admin: 04/18/17 16:48 Dose: 200 mg Famotidine (Pepcid) 20 mg PO DAILY [facility] Last Admin: 04/18/17 09:25 Dose: 20 mg Ferric Sodium Gluconate Complex (Ferrlecit) 125 mg IVPB DAILY [facility] Stop: 04/27/17 10:01 Ferrous Sulfate (Feosol) 325 mg PO DAILY [facility] Last Admin: 04/18/17 09:25 Dose: 325 mg Fluphenazine HCl (Prolixin) 5 mg PO BID [facility] Last Admin: 04/18/17 17:21 Dose: 5 mg Meropenem 500 mg/ Sodium (Chloride) 100 mls @ 100 mls/hr IVPB Q8 [facility] Last Admin: 04/18/17 21:35 Dose: 100 mls/hr Albumin Human (Albumin Human 25% (12.5 Gm/50 Ml)) 50 mls @ 50 mls/hr IV Q6 [facility] Stop: 04/21/17 18:01 Last Admin: 04/19/17 00:08 Dose: 50 mls/hr Insulin Aspart (Novolog) 0 unit SC ACHS [facility] PRN Reason: Protocol Last Admin: 09/14/17 21:51 Dose: Not Given Montelukast Sodium (Singulair) 10 mg PO HS [facility] Last Admin: 04/18/17 21:36 Dose: 10 mg Multivitamins (Hexavitamin) 1 tab PO DAILY [facility] Last Admin: 04/18/17 09:25 Dose: 1 tab Raltegravir (Isentress) 400 mg PO BID [facility] Last Admin: 04/18/17 17:23 Dose: 400 mg Saccharomyces Boulardii (Florastor) 250 mg PO BID [facility] Last Admin: 04/18/17 17:21 Dose: 250 mg Saliva Substitute (First Magic Mouthwash) 5 ml PO Q4H [facility] Last Admin: 04/19/17 00:17 Dose: 5 ml Senna/Docusate Sodium (Senokot S 50 Mg-8.6 Mg) 1 tab PO HS PRN PRN Reason: Constipation Last Admin: 04/18/17 09:29 Dose: 1 tab Sertraline HCl (Zoloft) 50 mg PO DAILY [facility] Last Admin: 04/18/17 09:25 Dose: 50 mg Tenofovir Disoproxil Fumarate (Viread) 300 mg PO Q48H [facility] Last Admin: 04/18/17 16:48 Dose: 300 mg - Labs Labs: 04/18/17 07:05 04/18/17 07:05 - Head Exam Head Exam: ATRAUMATIC - Eye Exam Eye Exam: Normal appearance - ENT Exam ENT Exam: Mucous Membranes Dry - Respiratory Exam Respiratory Exam: NORMAL BREATHING PATTERN - Cardiovascular Exam Cardiovascular Exam: +S1, +S2 - GI/Abdominal Exam GI & Abdominal Exam: Normal Bowel Sounds Assessment and Plan (1) Anemia Assessment & Plan: iron deficiency anemia on Ferrlecit Status: Acute (2) Thrombocytopenia Assessment & Plan: resolved Status: Acute
--- NOTE | 2017-04-19 02:18 | CP.PCM.PN ---
Subjective - Date & Time of Evaluation Date of Evaluation: 04/17/17 Time of Evaluation: 13:00 - Subjective Subjective: No complaints. Objective - Vital Signs/Intake and Output Vital Signs (last 24 hours): Temp Pulse Resp BP Pulse Ox 97.8 F 74 20 117/73 100 04/19/17 00:00 04/19/17 00:00 04/19/17 00:00 04/19/17 00:00 04/19/17 00:00 Intake and Output: 04/18/17 04/19/17 18:59 06:59 Intake Total 500 400 Output Total 601 400 Balance -101 0 - Medications Medications: Current Medications Acetaminophen (Tylenol 325mg Tab) 650 mg PO Q6H PRN PRN Reason: Fever >100.4 F Last Admin: 04/14/17 11:35 Dose: 650 mg Benztropine Mesylate (Cogentin) [address] [facility] Last Admin: 04/18/17 17:21 Dose: 1 mg Dextrose (Dextrose 50% Inj) 50 ml IV Q6H PRN PRN Reason: Low blood sugar Emtricitabine (Emtriva) [address] [facility] Last Admin: 04/18/17 16:48 Dose: 200 mg Famotidine (Pepcid) [address] [facility] Last Admin: 04/18/17 09:25 Dose: 20 mg Ferric Sodium Gluconate Complex (Ferrlecit) [address] [facility] Stop: 04/27/17 10:01 Ferrous Sulfate (Feosol) [address] [facility] Last Admin: 04/18/17 09:25 Dose: 325 mg Fluphenazine HCl (Prolixin) [address] [facility] Last Admin: 04/18/17 17:21 Dose: 5 mg Meropenem 500 mg/ Sodium (Chloride) 100 mls @ 100 mls/hr IVPB Q8 [facility] Last Admin: 04/18/17 21:35 Dose: 100 mls/hr Albumin Human (Albumin Human 25% (12.5 Gm/50 Ml)) 50 mls @ 50 mls/hr IV Q6 [facility] Stop: 04/21/17 18:01 Last Admin: 04/19/17 00:08 Dose: 50 mls/hr Insulin Aspart (Novolog) [address] [facility] PRN Reason: Protocol Last Admin: 04/18/17 21:51 Dose: Not Given Montelukast Sodium (Singulair) [address] [facility] Last Admin: 04/18/17 21:36 Dose: 10 mg Multivitamins (Hexavitamin) [address] [facility] Last Admin: 04/18/17 09:25 Dose: 1 tab Raltegravir (Isentress) [address] [facility] Last Admin: 04/18/17 17:23 Dose: 400 mg Saccharomyces Boulardii (Florastor) [address] [facility] Last Admin: 04/18/17 17:21 Dose: 250 mg Saliva Substitute (First Magic Mouthwash) [address] [facility] Last Admin: 04/19/17 00:17 Dose: 5 ml Senna/Docusate Sodium (Senokot S 50 Mg-8.6 Mg) 1 tab PO HS PRN PRN Reason: Constipation Last Admin: 04/18/17 09:29 Dose: 1 tab Sertraline HCl (Zoloft) [address] [facility] Last Admin: 04/18/17 09:25 Dose: 50 mg Tenofovir Disoproxil Fumarate (Viread) [address] [facility] Last Admin: 04/18/17 16:48 Dose: 300 mg - Labs Labs: 04/18/17 07:05 04/18/17 07:05 - Head Exam Head Exam: ATRAUMATIC - Eye Exam Eye Exam: Normal appearance - ENT Exam ENT Exam: Mucous Membranes Dry - Respiratory Exam Respiratory Exam: NORMAL BREATHING PATTERN - Cardiovascular Exam Cardiovascular Exam: +S1, +S2 - GI/Abdominal Exam GI & Abdominal Exam: Normal Bowel Sounds Assessment and Plan (1) Anemia Assessment & Plan: iron deficiency; consider starting Ferrlecit anemia of chronic disease Status: Acute (2) Thrombocytopenia Assessment & Plan: resolved Status: Acute
[2017-04-19] MEDS: Meropenem 500 MG in Sodium Chloride 0.9% 100 ML IVPB SCH ×3 (06:08→21:19)
[2017-04-19 07:18] LABS: BASO # 0.1 K/uL (0.0-0.2); BASO % 1.3 % (0.0-2.0); EOS # 0.1 K/uL (0.0-0.7); EOS % 1.6 % (0.0-4.0); HEMATOCRIT 25.9 % (35.0-51.0); LYMPH # 0.7 K/uL (1.0-4.3); LYMPH % 8.9 % (20.0-40.0); MEAN CORPUSCULAR HGB CONC 31.7 g/dL (33.0-37.0); MEAN PLATELET VOLUME 8.5 fL (7.2-11.7); MONO # 0.8 K/uL (0.0-0.8); MONO % 9.4 % (0.0-10.0); PLATELET COUNT 160 K/uL (130-400); RED CELL DISTRIBUTION WIDTH 28.5 % (11.5-14.5); WHITE BLOOD COUNT 8.2 K/uL (4.8-10.8)
[2017-04-19 07:41] LABS: POTASSIUM 3.4 mmol/L (3.6-5.2)
[2017-04-19 07:43] LABS: ALB/GLOB RATIO 1.1 (1.0-2.1); BILIRUBIN,TOTAL 0.6 mg/dL (0.2-1.3); TOTAL PROTEIN 5.9 g/dL (6.3-8.3)
[2017-04-19 07:44] LABS: CALCIUM 7.2 mg/dl (8.6-10.4); MAGNESIUM 1.8 mg/dL (1.6-2.3)
[2017-04-19] MEDS: (Novolog) Insulin Aspart, Recombinant 100 u/ml 10 ml vial SC SCH ×4 (08:57→21:29)
[2017-04-19] MEDS: Docusate-Senna 50 mg-8.6 mg Tab PO PRN (09:02)
[2017-04-19] MEDS: Multiple Vitamins Tab PO SCH (09:02)
[2017-04-19] MEDS: Saccharomyces Boulardi 250 mg Cap PO SCH ×2 (09:02→17:18)
[2017-04-19 10:00] LABS: BASOPHIL 1 % (0-2); NEUTROPHIL 88 % (50-75); TOTAL CELLS COUNTED 100
[2017-04-19] MEDS: Ferric Sodium Gluconat Complex 62.5 mg/5 ml Vial IVPB SCH (10:55)
--- NOTE | 2017-04-19 12:47 | CP.PCM.PN ---
Subjective - Date & Time of Evaluation Date of Evaluation: 04/19/17 Time of Evaluation: 09:40 - Subjective Subjective: PGY2 medicine note for Dr. Stanley Patient seen and examined. Patient very alert, with complaint of mild headache. Patient participated with physical therapy. Patient states he has poor appetite today. Objective - Vital Signs/Intake and Output Vital Signs (last 24 hours): Temp Pulse Resp BP Pulse Ox 98.7 F 81 20 106/58 L 96 04/19/17 08:00 04/19/17 08:00 04/19/17 08:00 04/19/17 08:00 04/19/17 08:00 Intake and Output: 04/19/17 04/19/17 06:59 18:59 Intake Total 850 Output Total 950 Balance -100 - Medications Medications: Current Medications Acetaminophen (Tylenol 325mg Tab) 650 mg PO Q6H PRN PRN Reason: Fever >100.4 F Last Admin: 04/14/17 11:35 Dose: 650 mg Benztropine Mesylate (Cogentin) 1 mg PO BID [facility] Last Admin: 04/19/17 09:03 Dose: 1 mg Dextrose (Dextrose 50% Inj) 50 ml IV Q6H PRN PRN Reason: Low blood sugar Emtricitabine (Emtriva) 200 mg PO Q48H [facility] Last Admin: 04/18/17 16:48 Dose: 200 mg Famotidine (Pepcid) 20 mg PO DAILY [facility] Last Admin: 04/19/17 09:02 Dose: 20 mg Ferric Sodium Gluconate Complex (Ferrlecit) 125 mg IVPB DAILY [facility] Stop: 04/27/17 10:01 Last Admin: 04/19/17 10:55 Dose: 125 mg Ferrous Sulfate (Feosol) 325 mg PO DAILY [facility] Last Admin: 04/18/17 09:25 Dose: 325 mg Fluphenazine HCl (Prolixin) 5 mg PO BID [facility] Last Admin: 04/19/17 09:02 Dose: 5 mg Heparin Sodium (Porcine) (Heparin) 5,000 units SC Q12 [facility] Meropenem 500 mg/ Sodium (Chloride) 100 mls @ 100 mls/hr IVPB Q8 [facility] Last Admin: 04/19/17 06:08 Dose: 100 mls/hr Albumin Human (Albumin Human 25% (12.5 Gm/50 Ml)) 50 mls @ 50 mls/hr IV Q6 [facility] Stop: 04/21/17 18:01 Last Admin: 04/19/17 12:07 Dose: 50 mls/hr Insulin Aspart (Novolog) 0 unit SC ACHS [facility] PRN Reason: Protocol Last Admin: 04/19/17 11:41 Dose: Not Given Montelukast Sodium (Singulair) 10 mg PO HS [facility] Last Admin: 04/18/17 21:36 Dose: 10 mg Multivitamins (Hexavitamin) 1 tab PO DAILY [facility] Last Admin: 04/19/17 09:02 Dose: 1 tab Raltegravir (Isentress) 400 mg PO BID [facility] Last Admin: 04/19/17 09:04 Dose: 400 mg Saccharomyces Boulardii (Florastor) 250 mg PO BID [facility] Last Admin: 04/19/17 09:02 Dose: 250 mg Saliva Substitute (First Magic Mouthwash) 5 ml PO Q4H [facility] Last Admin: 04/19/17 11:40 Dose: 5 ml Senna/Docusate Sodium (Senokot S 50 Mg-8.6 Mg) 1 tab PO HS PRN PRN Reason: Constipation Last Admin: 04/19/17 09:02 Dose: 1 tab Sertraline HCl (Zoloft) 50 mg PO DAILY [facility] Last Admin: 04/19/17 09:02 Dose: 50 mg Tenofovir Disoproxil Fumarate (Viread) 300 mg PO Q48H [facility] Last Admin: 04/18/17 16:48 Dose: 300 mg - Labs Labs: 04/19/17 07:05 04/19/17 07:05 - Constitutional Appears: No Acute Distress, Chronically Ill - Head Exam Head Exam: ATRAUMATIC, NORMOCEPHALIC - Eye Exam Eye Exam: EOMI - ENT Exam ENT Exam: Mucous Membranes Moist - Respiratory Exam Respiratory Exam: Decreased Breath Sounds. absent: Rales, Rhonchi, Wheezes Additional comments: right chest port - Cardiovascular Exam Cardiovascular Exam: +S1, +S2 - GI/Abdominal Exam GI & Abdominal Exam: Soft, Normal Bowel Sounds. absent: Tenderness - Exam Additional comments: silverman catheter in place - Extremities Exam Extremities Exam: Pedal Edema Additional comments: 2+ pitting edema of bilateral lower extremities - Neurological Exam Neurological Exam: Alert, Awake - Skin Skin Exam: Dry, Warm Assessment and Plan - Assessment and Plan (Free Text) Assessment: Elevated creatinine 04/19: urine eosinophils positive. UA also shows yeast, will check repeat urine culture. 04/18: 24h urine collection consistent with nephrotic proteinuria. urine eosinophils ordered 04/17: 24h urine collection: urine volume 825, protein 2862.8 04/16: Patient followed by nephrology, Dr. Diallo. Urine output 600cc over 24 hours. 24 hour urine protein / creatinine clearance in process. 04/15: Silverman in place, good urine output. f/u bladder scan. 04/12: minimal output per silverman. Per nursing, urine is leaking around silverman and last bladder scan showed 12mL in bladder. Creatinine unchanged. Silverman catheter was changed yesterday by Dr. Paula 04/11: minimal urine output per silverman. Attempted to advance silverman without improvement in urine output. Discussed with Dr. Paula- will investigate and potentially exchange silveramn today 04/10: bladder scan with >1000cc urine 04/09/17: bladder US- complex cystic mass left and inferior to bladder, 812 cc urine present scrotum and penis is edematous and meatus cannot be identified Dr. Bailey Paula consulted for urinary retention, will see patient today to insert silverman catheter will keep NPO in case patient needs OR procedure Nephrology, Dr. Domínguez, on the case- help appreciated Sepsis secondary to UTI 04/19: repeat urine culture as UA positive for yeast resolving Urine culture from 04/10/17 negative for growth New silverman placed 04/10/17 but with poor urine output-may be obstructed. urine sample was collected, sent for UA, culture Continue Meropenem 500mg (started on 03/31), will F/U with ID regarding duration of treatment Started Florastor 04/05 Patient was started on Primaxin on 03/24 and was discontinued 03/31 Currently afebrile, WBC 4.2 Silverman was inserted on 03/22 - Silverman was discontinued 04/01. N Urine culture from 03/22- Proteus Mirabilis Blood culture from 03/21- Proteus Mirabilis Repeat blood culture 03/29: No growth after 5 days Anasarca 04/19: albumin slightly increased, but patient is receiving supplementation. Workup with nephrology for nephrotic proteinuria, AIN 04/18: continue albumin. nephrotic proteinuria seen 24h urine collection, which may explain patient's anasarca 04/16: Start Albumin 12.5gm Q6H x 5 days. Lasix 40mg IVP qd already on. 04/15: albumin steady at 1.7, likely third spacing. 04/12: will give albumin once daily x 3 doses Dyspnea- Secondary to COPD v. CHF v. Lung CA v. Pneumonia 04/19: no complaints of dyspnea today. 04/16: repeat CXR - Progressive multifocal infiltrates affecting left upper lobe , right lower lobe. Continue IV Abx. Continue BiPAP. Start Albumin 12.5gm Q6H x 5 days and continue Lasix 40mg IVP qd. 04/15: saturating well on NC. BiPAP ordered to be place HS, and PRN during the day. Patient would benefit from BiPAP however he prefers nasal canula at this time. Encourage patient to wear BiPAP Mycoplasma negative Blood cultures negative 03/29: CXR shows minimal change interval from previous study; chronic changes in LML and LLL. Change in Mental Status 04/19: AAOx3 today. 04/15: patient more alert today, AAOx3 Waxing and waning alertness- patient more alert today 04/09: Head CT: no mass effect, edema, bleed. atrophy seen ABG 04/10: pH 7.45, pCO2 39, pO2 82 Diarrhea 04/15: diarrhea today. c.diff Negative patient has been on multiple IV antibiotics and is now having large volume diarrhea 04/12/17: stopping flagyl, C. diff negative Pancytopenia 04/19: improved, plt 160, Hgb 8.2. continue ferlicit IV 04/18: plt 142, Hgb7.8. will start ferlicit in place of feosol 04/15: plateletes 126. Hgb 8.8. 1u PRBC ready. Transfused 2 units PRBC 04/05. Now Hgb 10.1 Microcytic Anemia- chronic disease v. iron deficiency 04/04: Hgb 8.1 04/02: Per Dr. Connell, consider GI eval once acute illness resolves Likely secondary to sepsis or HIV Per Dr. Connell do not transfuse platelets unless <20 Continue to monitor Mouth Sores Magic Mouthwash Q4H Electrolyte deficiency Prior Hx. Currently stable. Monitor daily, supplement as needed Obstructive Sleep Apnea BiPAP ordered for night time use- patient should go to [facility] with BIPAP at night He has been non-compliant with BiPAP. Encourage use. History of COPD 04/19: Continue BiPAP HS (BiPAP may be placed PRN during the day). Duonebs as needed PRN Singulair 10mg PO daily History of HIV % CD4 cells 59, Absolute CD4 158 ; % [id number] 8, Absolute CD8 23 04/02: ID Consulted, Dr La, f/u recs - Truvada 1 tab PO daily (home med) Isentress 400mg PO BID (home med) HTN 04/15-04/18: BP stable/low, continue to monitor. BP meds held due to hypotension Previous Echo done on 02/26/17- EF 62% (see full report) HLD 04/03: Stopped Crestor 20mg PO HS 2/2 elevated LFTs Transaminitis improved Crestor held Cont to monitor Psychiatric history- questionable Schizophrenia prolixin 5mg PO BID cogentin 1mg PO BID Zoloft 50mg PO daily Discontinued Atarax and Trazodone due to lethargy Transient hyperglycemia likely secondary to steroid administration ISS Continue to monitor No documented history of DM Accuchecks A1c 6.2 Prophylaxis Pepcid 20mg PO daily PT Eval and Treat Palliative consult, Katy Kramer- help appreciated Code Status: DNR/DNI (patient spoke with Katy 04/16 and filled paperwork). when patient stable, may transfer back to [facility] All medical management as per Dr. Stanley
--- NOTE | 2017-04-19 15:12 | CP.PCM.PN ---
Subjective - Date & Time of Evaluation Date of Evaluation: 04/19/17 Time of Evaluation: 09:00 - Subjective Subjective: awake alert nad iv rx in progress Objective - Vital Signs/Intake and Output Vital Signs (last 24 hours): Temp Pulse Resp BP Pulse Ox 98.7 F 81 20 106/58 L 96 04/19/17 08:00 04/19/17 08:00 04/19/17 08:00 04/19/17 08:00 04/19/17 08:00 Intake and Output: 04/19/17 04/19/17 06:59 18:59 Intake Total 850 600 Output Total 950 650 Balance -100 -50 - Medications Medications: Current Medications Acetaminophen (Tylenol 325mg Tab) 650 mg PO Q6H PRN PRN Reason: Fever >100.4 F Last Admin: 04/14/17 11:35 Dose: 650 mg Benztropine Mesylate (Cogentin) 1 mg PO BID [facility] Last Admin: 04/19/17 09:03 Dose: 1 mg Dextrose (Dextrose 50% Inj) 50 ml IV Q6H PRN PRN Reason: Low blood sugar Emtricitabine (Emtriva) 200 mg PO Q48H [facility] Last Admin: 04/18/17 16:48 Dose: 200 mg Famotidine (Pepcid) 20 mg PO DAILY [facility] Last Admin: 04/19/17 09:02 Dose: 20 mg Ferric Sodium Gluconate Complex (Ferrlecit) 125 mg IVPB DAILY [facility] Stop: 04/27/17 10:01 Last Admin: 04/19/17 10:55 Dose: 125 mg Ferrous Sulfate (Feosol) 325 mg PO DAILY [facility] Last Admin: 04/18/17 09:25 Dose: 325 mg Fluphenazine HCl (Prolixin) 5 mg PO BID [facility] Last Admin: 04/19/17 09:02 Dose: 5 mg Heparin Sodium (Porcine) (Heparin) 5,000 units SC Q12 [facility] Meropenem 500 mg/ Sodium (Chloride) 100 mls @ 100 mls/hr IVPB Q8 [facility] Last Admin: 04/19/17 14:00 Dose: 100 mls/hr Albumin Human (Albumin Human 25% (12.5 Gm/50 Ml)) 50 mls @ 50 mls/hr IV Q6 [facility] Stop: 04/21/17 18:01 Last Admin: 04/19/17 12:07 Dose: 50 mls/hr Insulin Aspart (Novolog) 0 unit SC ACHS [facility] PRN Reason: Protocol Last Admin: 04/19/17 11:41 Dose: Not Given Montelukast Sodium (Singulair) 10 mg PO HS [facility] Last Admin: 04/18/17 21:36 Dose: 10 mg Multivitamins (Hexavitamin) 1 tab PO DAILY [facility] Last Admin: 04/19/17 09:02 Dose: 1 tab Raltegravir (Isentress) 400 mg PO BID [facility] Last Admin: 04/19/17 09:04 Dose: 400 mg Saccharomyces Boulardii (Florastor) 250 mg PO BID [facility] Last Admin: 04/19/17 09:02 Dose: 250 mg Saliva Substitute (First Magic Mouthwash) 5 ml PO Q4H [facility] Last Admin: 04/19/17 11:40 Dose: 5 ml Senna/Docusate Sodium (Senokot S 50 Mg-8.6 Mg) 1 tab PO HS PRN PRN Reason: Constipation Last Admin: 04/19/17 09:02 Dose: 1 tab Sertraline HCl (Zoloft) 50 mg PO DAILY [facility] Last Admin: 04/19/17 09:02 Dose: 50 mg Tenofovir Disoproxil Fumarate (Viread) 300 mg PO Q48H [facility] Last Admin: 04/18/17 16:48 Dose: 300 mg - Labs Labs: 04/19/17 07:05 04/19/17 07:05 - Constitutional Appears: Non-toxic, Chronically Ill - Head Exam Head Exam: NORMOCEPHALIC - Eye Exam Eye Exam: PERRL. absent: Scleral icterus - ENT Exam ENT Exam: Mucous Membranes Dry - Neck Exam Neck Exam: absent: Lymphadenopathy - Respiratory Exam Respiratory Exam: Decreased Breath Sounds - Cardiovascular Exam Cardiovascular Exam: REGULAR RHYTHM - GI/Abdominal Exam GI & Abdominal Exam: Distended, Soft - Rectal Exam Rectal Exam: Deferred - Exam Exam: NORMAL INSPECTION Assessment and Plan (1) Anemia Status: Acute (2) CHF (congestive heart failure) Status: Acute (3) COPD (chronic obstructive pulmonary disease) Status: Acute (4) Change in mental status Status: Acute (5) Hypokalemia Status: Acute (6) Sepsis Status: Acute (7) Chest pain Status: Acute - Assessment and Plan (Free Text) Assessment: cont rx as ordered
--- NOTE | 2017-04-19 15:55 | CP.PCM.PN ---
Subjective - Date & Time of Evaluation Date of Evaluation: 04/19/17 Time of Evaluation: 15:53 - Subjective Subjective: More alert Creat increased to 2.7 Off diuretics urine eos positive can consider changing tenofovir- possible cause of SUZANNE will discuss with medical team Objective - Vital Signs/Intake and Output Vital Signs (last 24 hours): Temp Pulse Resp BP Pulse Ox 98.7 F 81 20 106/58 L 96 04/19/17 08:00 04/19/17 08:00 04/19/17 08:00 04/19/17 08:00 04/19/17 08:00 Intake and Output: 04/19/17 04/19/17 06:59 18:59 Intake Total 850 600 Output Total 950 650 Balance -100 -50 - Medications Medications: Current Medications Acetaminophen (Tylenol 325mg Tab) 650 mg PO Q6H PRN PRN Reason: Fever >100.4 F Last Admin: 04/14/17 11:35 Dose: 650 mg Benztropine Mesylate (Cogentin) 1 mg PO BID [facility] Last Admin: 04/19/17 09:03 Dose: 1 mg Dextrose (Dextrose 50% Inj) 50 ml IV Q6H PRN PRN Reason: Low blood sugar Emtricitabine (Emtriva) 200 mg PO Q48H [facility] Last Admin: 04/18/17 16:48 Dose: 200 mg Famotidine (Pepcid) 20 mg PO DAILY [facility] Last Admin: 04/19/17 09:02 Dose: 20 mg Ferric Sodium Gluconate Complex (Ferrlecit) 125 mg IVPB DAILY [facility] Stop: 04/27/17 10:01 Last Admin: 04/19/17 10:55 Dose: 125 mg Ferrous Sulfate (Feosol) 325 mg PO DAILY [facility] Last Admin: 04/18/17 09:25 Dose: 325 mg Fluphenazine HCl (Prolixin) 5 mg PO BID [facility] Last Admin: 04/19/17 09:02 Dose: 5 mg Heparin Sodium (Porcine) (Heparin) 5,000 units SC Q12 [facility] Meropenem 500 mg/ Sodium (Chloride) 100 mls @ 100 mls/hr IVPB Q8 [facility] Last Admin: 04/19/17 14:00 Dose: 100 mls/hr Albumin Human (Albumin Human 25% (12.5 Gm/50 Ml)) 50 mls @ 50 mls/hr IV Q6 [facility] Stop: 04/21/17 18:01 Last Admin: 04/19/17 12:07 Dose: 50 mls/hr Insulin Aspart (Novolog) 0 unit SC ACHS [facility] PRN Reason: Protocol Last Admin: 04/19/17 11:41 Dose: Not Given Montelukast Sodium (Singulair) 10 mg PO HS [facility] Last Admin: 04/18/17 21:36 Dose: 10 mg Multivitamins (Hexavitamin) 1 tab PO DAILY [facility] Last Admin: 04/19/17 09:02 Dose: 1 tab Raltegravir (Isentress) 400 mg PO BID [facility] Last Admin: 04/19/17 09:04 Dose: 400 mg Saccharomyces Boulardii (Florastor) 250 mg PO BID [facility] Last Admin: 04/19/17 09:02 Dose: 250 mg Saliva Substitute (First Magic Mouthwash) 5 ml PO Q4H [facility] Last Admin: 04/19/17 11:40 Dose: 5 ml Senna/Docusate Sodium (Senokot S 50 Mg-8.6 Mg) 1 tab PO HS PRN PRN Reason: Constipation Last Admin: 04/19/17 09:02 Dose: 1 tab Sertraline HCl (Zoloft) 50 mg PO DAILY [facility] Last Admin: 04/19/17 09:02 Dose: 50 mg Tenofovir Disoproxil Fumarate (Viread) 300 mg PO Q48H [facility] Last Admin: 04/18/17 16:48 Dose: 300 mg - Labs Labs: 04/19/17 07:05 04/19/17 07:05 - Constitutional Appears: No Acute Distress, Chronically Ill - Head Exam Head Exam: ATRAUMATIC, NORMAL INSPECTION - Eye Exam Eye Exam: EOMI, Normal appearance - Neck Exam Neck Exam: Normal Inspection. absent: Tenderness - Respiratory Exam Respiratory Exam: Clear to Ausculation Bilateral, NORMAL BREATHING PATTERN - Cardiovascular Exam Cardiovascular Exam: REGULAR RHYTHM, +S1 - GI/Abdominal Exam GI & Abdominal Exam: Soft. absent: Tenderness - Extremities Exam Extremities Exam: Normal Inspection, Pedal Edema. absent: Tenderness - Neurological Exam Neurological Exam: Alert, CN II-XII Intact - Skin Skin Exam: Dry, Warm Assessment and Plan (1) SUZANNE (acute kidney injury) Status: Acute (2) Obstructive uropathy Status: Acute (3) CHF (congestive heart failure) Status: Acute (4) COPD (chronic obstructive pulmonary disease) Status: Acute (5) Sepsis Status: Acute (6) Lung cancer Status: Acute (7) HIV antibody positive Status: Acute - Assessment and Plan (Free Text) Plan: consider changing tenofovir- possible etiology of SUZANNE Could consider renal bx if creat does not improve
[2017-04-19] MEDS: Tmp-Smz 800 mg-160 mg DS Tab PO SCH (17:17)
[2017-04-20] MEDS: Mag&Al/Simet/Diphen/Lido 237 ML KIT PO SCH ×6 (00:56→21:22)
[2017-04-20] MEDS: Meropenem 500 MG in Sodium Chloride 0.9% 100 ML IVPB SCH ×3 (06:08→21:21)
[2017-04-20] MEDS: (Novolog) Insulin Aspart, Recombinant 100 u/ml 10 ml vial SC SCH ×4 (08:04→21:48)
[2017-04-20 08:05] LABS: BASO # 0.2 K/uL (0.0-0.2); BASO % 2.4 % (0.0-2.0); EOS # 0.1 K/uL (0.0-0.7); EOS % 1.4 % (0.0-4.0); HEMATOCRIT 23.4 % (35.0-51.0); LYMPH # 0.7 K/uL (1.0-4.3); LYMPH % 9.3 % (20.0-40.0); MEAN CELL VOLUME 78.8 fL (80.0-94.0); MEAN CORPUSCULAR HEMOGLOBIN 24.8 pg (27.0-31.0); MEAN CORPUSCULAR HGB CONC 31.5 g/dL (33.0-37.0); MEAN PLATELET VOLUME 8.4 fL (7.2-11.7); MONO # 0.7 K/uL (0.0-0.8); MONO % 9.6 % (0.0-10.0); PLATELET COUNT 147 K/uL (130-400); RED CELL DISTRIBUTION WIDTH 28.4 % (11.5-14.5); WHITE BLOOD COUNT 7.7 K/uL (4.8-10.8)
[2017-04-20 08:20] LABS: POTASSIUM 3.3 mmol/L (3.6-5.2)
[2017-04-20 08:22] LABS: ALB/GLOB RATIO 1.1 (1.0-2.1); BILIRUBIN,TOTAL 0.6 mg/dL (0.2-1.3); TOTAL PROTEIN 5.4 g/dL (6.3-8.3)
[2017-04-20 08:23] LABS: MAGNESIUM 1.8 mg/dL (1.6-2.3)
[2017-04-20] MEDS: Ferric Sodium Gluconat Complex 62.5 mg/5 ml Vial IVPB SCH (11:21)
--- NOTE | 2017-04-20 11:22 | CP.PCM.PN ---
Subjective - Date & Time of Evaluation Date of Evaluation: 04/20/17 Time of Evaluation: 11:19 - Subjective Subjective: sleepy, not arousable no distress ROS- unable to obtain as patient lethargic Objective - Vital Signs/Intake and Output Vital Signs (last 24 hours): Temp Pulse Resp BP Pulse Ox 97.9 F 72 20 133/67 100 04/20/17 08:00 04/20/17 08:00 04/20/17 08:00 04/20/17 08:00 04/20/17 08:00 Intake and Output: 04/20/17 04/20/17 06:59 18:59 Intake Total 550 Output Total 600 Balance -50 - Medications Medications: Current Medications Acetaminophen (Tylenol 325mg Tab) 650 mg PO Q6H PRN PRN Reason: Fever >100.4 F Last Admin: 04/14/17 11:35 Dose: 650 mg Benztropine Mesylate (Cogentin) 1 mg PO BID [facility] Last Admin: 04/19/17 17:18 Dose: 1 mg Dextrose (Dextrose 50% Inj) 50 ml IV Q6H PRN PRN Reason: Low blood sugar Emtricitabine (Emtriva) 200 mg PO Q48H [facility] Last Admin: 04/18/17 16:48 Dose: 200 mg Famotidine (Pepcid) 20 mg PO DAILY [facility] Last Admin: 04/19/17 09:02 Dose: 20 mg Ferric Sodium Gluconate Complex (Ferrlecit) 125 mg IVPB DAILY [facility] Stop: 04/27/17 10:01 Last Admin: 04/19/17 10:55 Dose: 125 mg Ferrous Sulfate (Feosol) 325 mg PO DAILY [facility] Last Admin: 04/18/17 09:25 Dose: 325 mg Fluphenazine HCl (Prolixin) 5 mg PO BID [facility] Last Admin: 04/19/17 17:19 Dose: 5 mg Heparin Sodium (Porcine) (Heparin) 5,000 units SC Q12 [facility] Last Admin: 04/19/17 22:19 Dose: 5,000 units Meropenem 500 mg/ Sodium (Chloride) 100 mls @ 100 mls/hr IVPB Q8 [facility] Last Admin: 04/20/17 06:08 Dose: 100 mls/hr Albumin Human (Albumin Human 25% (12.5 Gm/50 Ml)) 50 mls @ 50 mls/hr IV Q6 [facility] Stop: 04/21/17 18:01 Last Admin: 04/20/17 05:05 Dose: 50 mls/hr Insulin Aspart (Novolog) 0 unit SC ACHS [facility] PRN Reason: Protocol Last Admin: 04/20/17 08:04 Dose: Not Given Montelukast Sodium (Singulair) 10 mg PO HS [facility] Last Admin: 04/19/17 22:19 Dose: 10 mg Multivitamins (Hexavitamin) 1 tab PO DAILY [facility] Last Admin: 04/19/17 09:02 Dose: 1 tab Raltegravir (Isentress) 400 mg PO BID [facility] Last Admin: 04/19/17 17:19 Dose: 400 mg Saccharomyces Boulardii (Florastor) 250 mg PO BID [facility] Last Admin: 04/19/17 17:18 Dose: 250 mg Saliva Substitute (First Magic Mouthwash) 5 ml PO Q4H [facility] Last Admin: 04/20/17 08:13 Dose: 5 ml Senna/Docusate Sodium (Senokot S 50 Mg-8.6 Mg) 1 tab PO HS PRN PRN Reason: Constipation Last Admin: 04/19/17 09:02 Dose: 1 tab Sertraline HCl (Zoloft) 50 mg PO DAILY [facility] Last Admin: 04/19/17 09:02 Dose: 50 mg Tenofovir Disoproxil Fumarate (Viread) 300 mg PO Q48H [facility] Last Admin: 04/18/17 16:48 Dose: 300 mg Trimethoprim/Sulfamethoxazole (Bactrim Ds Tab) 1 tab PO DAILY [facility] Last Admin: 04/19/17 17:17 Dose: 1 tab - Labs Labs: 04/20/17 07:51 04/20/17 07:51 - Constitutional Appears: Non-toxic, No Acute Distress - Head Exam Head Exam: ATRAUMATIC, NORMOCEPHALIC - Eye Exam Eye Exam: EOMI - ENT Exam ENT Exam: Mucous Membranes Moist - Respiratory Exam Respiratory Exam: Clear to Ausculation Bilateral. absent: Rhonchi, Wheezes - Cardiovascular Exam Cardiovascular Exam: REGULAR RHYTHM, +S1, +S2 - GI/Abdominal Exam GI & Abdominal Exam: Soft. absent: Tenderness - Extremities Exam Extremities Exam: Pedal Edema - Neurological Exam Neurological Exam: absent: Alert, Awake, Oriented x3 - Skin Skin Exam: Warm Assessment and Plan (1) SUZANNE (acute kidney injury) Status: Acute (2) Anemia Status: Acute (3) Change in mental status Status: Acute (4) HIV antibody positive Status: Acute (5) Lung cancer Status: Acute (6) Obstructive uropathy Status: Acute - Assessment and Plan (Free Text) Plan: cr slightly better replete potassium monitor Hb transfuse as needed
[2017-04-20] MEDS: Tmp-Smz 800 mg-160 mg DS Tab PO SCH (11:23)
[2017-04-20] MEDS: Multiple Vitamins Tab PO SCH (11:23)
[2017-04-20] MEDS: Saccharomyces Boulardi 250 mg Cap PO SCH ×2 (11:23→17:39)
[2017-04-20 11:41] LABS: EOSINOPHIL 1 % (0-4)
[2017-04-20 11:42] LABS: NEUTROPHIL 83 % (50-75); TOTAL CELLS COUNTED 100
[2017-04-20 11:43] LABS: SPHEROCYTES SLIGHT
[2017-04-20] MEDS: EMTRICITABINE 200 MG CAP PO SCH (17:00)
[2017-04-21] MEDS: Mag&Al/Simet/Diphen/Lido 237 ML KIT PO SCH ×6 (00:16→20:42)
[2017-04-21] MEDS: Meropenem 500 MG in Sodium Chloride 0.9% 100 ML IVPB SCH ×2 (05:16→14:33)
[2017-04-21] MEDS: (Novolog) Insulin Aspart, Recombinant 100 u/ml 10 ml vial SC SCH ×4 (07:35→21:43)
[2017-04-21 08:46] LABS: BASO # 0.2 K/uL (0.0-0.2); BASO % 2.2 % (0.0-2.0); EOS # 0.1 K/uL (0.0-0.7); EOS % 1.5 % (0.0-4.0); HEMATOCRIT 22.2 % (35.0-51.0); LYMPH # 0.7 K/uL (1.0-4.3); LYMPH % 6.9 % (20.0-40.0); MEAN CELL VOLUME 79.6 fL (80.0-94.0); MEAN CORPUSCULAR HEMOGLOBIN 25.2 pg (27.0-31.0); MEAN CORPUSCULAR HGB CONC 31.6 g/dL (33.0-37.0); MEAN PLATELET VOLUME 7.6 fL (7.2-11.7); MONO # 0.9 K/uL (0.0-0.8); MONO % 9.6 % (0.0-10.0); PLATELET COUNT 161 K/uL (130-400); RED CELL DISTRIBUTION WIDTH 28.6 % (11.5-14.5); WHITE BLOOD COUNT 9.8 K/uL (4.8-10.8)
[2017-04-21 08:57] LABS: POTASSIUM 3.2 mmol/L (3.6-5.2)
[2017-04-21 08:59] LABS: ALB/GLOB RATIO 1.2 (1.0-2.1); BILIRUBIN,TOTAL 0.6 mg/dL (0.2-1.3); TOTAL PROTEIN 5.6 g/dL (6.3-8.3)
[2017-04-21 09:00] LABS: CALCIUM 7.1 mg/dl (8.6-10.4); MAGNESIUM 1.7 mg/dL (1.6-2.3)
[2017-04-21 10:46] LABS: NEUTROPHIL 82 % (50-75); TOTAL CELLS COUNTED 100
[2017-04-21 10:48] LABS: SPHEROCYTES SLIGHT
[2017-04-21] MEDS: Tmp-Smz 800 mg-160 mg DS Tab PO SCH (10:51)
[2017-04-21] MEDS: Ferric Sodium Gluconat Complex 62.5 mg/5 ml Vial IVPB SCH (10:51)
[2017-04-21] MEDS: Saccharomyces Boulardi 250 mg Cap PO SCH ×2 (10:52→17:26)
[2017-04-21] MEDS: Multiple Vitamins Tab PO SCH (10:52)
[2017-04-21] MEDS: Potassium Chloride 20 mEq ER Tab PO SCH (14:43)
--- NOTE | 2017-04-21 14:58 | CP.PCM.PN ---
Subjective - Date & Time of Evaluation Date of Evaluation: 04/21/17 Time of Evaluation: 08:00 - Subjective Subjective: iv rx in progress awake alert hgb low heme on board Objective - Vital Signs/Intake and Output Vital Signs (last 24 hours): Temp Pulse Resp BP Pulse Ox 97.8 F 72 20 111/60 97 04/21/17 07:48 04/21/17 07:48 04/21/17 07:48 04/21/17 07:48 04/21/17 07:48 Intake and Output: 04/21/17 04/21/17 06:59 18:59 Intake Total 900 Output Total 1000 Balance -100 - Medications Medications: Current Medications Acetaminophen (Tylenol 325mg Tab) 650 mg PO Q6H PRN PRN Reason: Fever >100.4 F Last Admin: 04/14/17 11:35 Dose: 650 mg Benztropine Mesylate (Cogentin) 1 mg PO BID [facility] Last Admin: 04/21/17 10:51 Dose: 1 mg Dextrose (Dextrose 50% Inj) 50 ml IV Q6H PRN PRN Reason: Low blood sugar Emtricitabine (Emtriva) 200 mg PO Q48H [facility] Last Admin: 04/20/17 17:00 Dose: 200 mg Famotidine (Pepcid) 20 mg PO DAILY [facility] Last Admin: 04/21/17 10:52 Dose: 20 mg Ferric Sodium Gluconate Complex (Ferrlecit) 125 mg IVPB DAILY [facility] Stop: 04/27/17 10:01 Last Admin: 04/21/17 10:51 Dose: 125 mg Ferrous Sulfate (Feosol) 325 mg PO DAILY [facility] Last Admin: 04/18/17 09:25 Dose: 325 mg Fluphenazine HCl (Prolixin) 5 mg PO BID [facility] Last Admin: 04/21/17 10:52 Dose: 5 mg Heparin Sodium (Porcine) (Heparin) 5,000 units SC Q12 [facility] Last Admin: 04/21/17 10:51 Dose: 5,000 units Meropenem 500 mg/ Sodium (Chloride) 100 mls @ 100 mls/hr IVPB Q8 [facility] Last Admin: 04/21/17 14:33 Dose: 100 mls/hr Albumin Human (Albumin Human 25% (12.5 Gm/50 Ml)) 50 mls @ 50 mls/hr IV Q6 [facility] Stop: 04/21/17 18:01 Last Admin: 04/21/17 12:10 Dose: 50 mls/hr Insulin Aspart (Novolog) 0 unit SC ACHS [facility] PRN Reason: Protocol Last Admin: 04/21/17 12:13 Dose: Not Given Montelukast Sodium (Singulair) 10 mg PO HS [facility] Last Admin: 04/20/17 21:25 Dose: 10 mg Multivitamins (Hexavitamin) 1 tab PO DAILY [facility] Last Admin: 04/21/17 10:52 Dose: 1 tab Potassium Chloride (K-Dur 20 Meq Er Tab) 20 meq PO DAILY [facility] Last Admin: 04/21/17 14:43 Dose: 20 meq Raltegravir (Isentress) 400 mg PO BID [facility] Last Admin: 04/21/17 10:52 Dose: 400 mg Saccharomyces Boulardii (Florastor) 250 mg PO BID [facility] Last Admin: 04/21/17 10:52 Dose: 250 mg Saliva Substitute (First Magic Mouthwash) 5 ml PO Q4H [facility] Last Admin: 04/21/17 11:42 Dose: 5 ml Senna/Docusate Sodium (Senokot S 50 Mg-8.6 Mg) 1 tab PO HS PRN PRN Reason: Constipation Last Admin: 04/19/17 09:02 Dose: 1 tab Sertraline HCl (Zoloft) 50 mg PO DAILY [facility] Last Admin: 04/21/17 10:51 Dose: 50 mg Tenofovir Disoproxil Fumarate (Viread) 300 mg PO Q48H [facility] Last Admin: 04/20/17 17:00 Dose: 300 mg Trimethoprim/Sulfamethoxazole (Bactrim Ds Tab) 1 tab PO DAILY [facility] Last Admin: 04/21/17 10:51 Dose: 1 tab - Labs Labs: 04/21/17 08:36 04/21/17 08:36 - Constitutional Appears: Non-toxic, Cachectic, Chronically Ill - Head Exam Head Exam: ATRAUMATIC, NORMAL INSPECTION, NORMOCEPHALIC - Eye Exam Eye Exam: PERRL. absent: Scleral icterus - ENT Exam ENT Exam: Mucous Membranes Dry, Normal External Ear Exam - Neck Exam Neck Exam: absent: Lymphadenopathy - Respiratory Exam Respiratory Exam: Decreased Breath Sounds - Cardiovascular Exam Cardiovascular Exam: REGULAR RHYTHM - GI/Abdominal Exam GI & Abdominal Exam: Soft. absent: Tenderness - Rectal Exam Rectal Exam: Deferred - Exam Exam: NORMAL INSPECTION - Extremities Exam Extremities Exam: absent: Pedal Edema - Back Exam Back Exam: absent: CVA tenderness (L), CVA tenderness (R) Assessment and Plan (1) Anemia Status: Acute (2) CHF (congestive heart failure) Status: Acute (3) COPD (chronic obstructive pulmonary disease) Status: Acute (4) Change in mental status Status: Acute (5) Hypokalemia Status: Acute (6) Sepsis Status: Acute (7) Chest pain Status: Acute
[2017-04-21] MEDS: Fluconazole IV 100mg/50 ml NS 50 ML IVPB SCH (16:32)
[2017-04-21 22:06] VITALS: RESP 20
--- NOTE | 2017-04-22 00:04 | CP.PCM.PN ---
Subjective - Date & Time of Evaluation Date of Evaluation: 04/19/17 Time of Evaluation: 13:00 - Subjective Subjective: Feels weak Objective - Vital Signs/Intake and Output Vital Signs (last 24 hours): Temp Pulse Resp BP Pulse Ox 97.7 F 64 20 125/78 99 04/21/17 23:08 04/21/17 23:08 04/21/17 23:08 04/21/17 23:08 04/21/17 15:00 Intake and Output: 04/21/17 04/22/17 18:59 06:59 Intake Total 0 810 Output Total 400 Balance 0 410 - Medications Medications: Current Medications Acetaminophen (Tylenol 325mg Tab) 650 mg PO Q6H PRN PRN Reason: Fever >100.4 F Last Admin: 04/14/17 11:35 Dose: 650 mg Benztropine Mesylate (Cogentin) 1 mg PO BID [facility] Last Admin: 04/21/17 17:26 Dose: 1 mg Dextrose (Dextrose 50% Inj) 50 ml IV Q6H PRN PRN Reason: Low blood sugar Emtricitabine (Emtriva) 200 mg PO Q48H [facility] Last Admin: 04/20/17 17:00 Dose: 200 mg Famotidine (Pepcid) 20 mg PO DAILY [facility] Last Admin: 04/21/17 10:52 Dose: 20 mg Ferric Sodium Gluconate Complex (Ferrlecit) 125 mg IVPB DAILY [facility] Stop: 04/27/17 10:01 Last Admin: 04/21/17 10:51 Dose: 125 mg Ferrous Sulfate (Feosol) 325 mg PO DAILY [facility] Last Admin: 04/18/17 09:25 Dose: 325 mg Fluphenazine HCl (Prolixin) 5 mg PO BID [facility] Last Admin: 04/21/17 17:27 Dose: 5 mg Heparin Sodium (Porcine) (Heparin) 5,000 units SC Q12 [facility] Last Admin: 04/21/17 21:43 Dose: 5,000 units Fluconazole (Diflucan Iv 100 Mg/50 Ml Ns) 50 mls @ 100 mls/hr IVPB Q24H [facility] Last Admin: 04/21/17 16:32 Dose: 100 mls/hr Insulin Aspart (Novolog) 0 unit SC ACHS [facility] PRN Reason: Protocol Last Admin: 04/21/17 21:43 Dose: Not Given Montelukast Sodium (Singulair) 10 mg PO HS [facility] Last Admin: 04/21/17 21:44 Dose: 10 mg Multivitamins (Hexavitamin) 1 tab PO DAILY [facility] Last Admin: 04/21/17 10:52 Dose: 1 tab Potassium Chloride (K-Dur 20 Meq Er Tab) 20 meq PO DAILY [facility] Last Admin: 04/21/17 14:43 Dose: 20 meq Raltegravir (Isentress) 400 mg PO BID [facility] Last Admin: 04/21/17 17:27 Dose: 400 mg Saccharomyces Boulardii (Florastor) 250 mg PO BID [facility] Last Admin: 04/21/17 17:26 Dose: 250 mg Saliva Substitute (First Magic Mouthwash) 5 ml PO Q4H [facility] Last Admin: 04/21/17 20:42 Dose: 5 ml Senna/Docusate Sodium (Senokot S 50 Mg-8.6 Mg) 1 tab PO HS PRN PRN Reason: Constipation Last Admin: 04/19/17 09:02 Dose: 1 tab Sertraline HCl (Zoloft) 50 mg PO DAILY [facility] Last Admin: 04/21/17 10:51 Dose: 50 mg Tenofovir Disoproxil Fumarate (Viread) 300 mg PO Q48H [facility] Last Admin: 04/20/17 17:00 Dose: 300 mg Trimethoprim/Sulfamethoxazole (Bactrim Ds Tab) 1 tab PO DAILY [facility] Last Admin: 04/21/17 10:51 Dose: 1 tab - Labs Labs: 04/21/17 08:36 04/21/17 08:36 - Head Exam Head Exam: ATRAUMATIC - Eye Exam Eye Exam: Normal appearance - ENT Exam ENT Exam: Mucous Membranes Dry - Respiratory Exam Respiratory Exam: NORMAL BREATHING PATTERN - Cardiovascular Exam Cardiovascular Exam: +S1, +S2 - GI/Abdominal Exam GI & Abdominal Exam: Normal Bowel Sounds Assessment and Plan (1) Anemia Assessment & Plan: iron deficient; on 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
--- NOTE | 2017-04-22 00:10 | CP.PCM.PN ---
Subjective - Date & Time of Evaluation Date of Evaluation: 04/20/17 Time of Evaluation: 18:00 - Subjective Subjective: Doesnt feel well. Objective - Vital Signs/Intake and Output Vital Signs (last 24 hours): Temp Pulse Resp BP Pulse Ox 97.7 F 64 20 125/78 99 04/21/17 23:08 04/21/17 23:08 04/21/17 23:08 04/21/17 23:08 04/21/17 15:00 Intake and Output: 04/21/17 04/22/17 18:59 06:59 Intake Total 0 810 Output Total 400 Balance 0 410 - Medications Medications: Current Medications Acetaminophen (Tylenol 325mg Tab) 650 mg PO Q6H PRN PRN Reason: Fever >100.4 F Last Admin: 04/14/17 11:35 Dose: 650 mg Benztropine Mesylate (Cogentin) 1 mg PO BID [facility] Last Admin: 04/21/17 17:26 Dose: 1 mg Dextrose (Dextrose 50% Inj) 50 ml IV Q6H PRN PRN Reason: Low blood sugar Emtricitabine (Emtriva) 200 mg PO Q48H [facility] Last Admin: 04/20/17 17:00 Dose: 200 mg Famotidine (Pepcid) 20 mg PO DAILY [facility] Last Admin: 04/21/17 10:52 Dose: 20 mg Ferric Sodium Gluconate Complex (Ferrlecit) 125 mg IVPB DAILY [facility] Stop: 04/27/17 10:01 Last Admin: 04/21/17 10:51 Dose: 125 mg Ferrous Sulfate (Feosol) 325 mg PO DAILY [facility] Last Admin: 04/18/17 09:25 Dose: 325 mg Fluphenazine HCl (Prolixin) 5 mg PO BID [facility] Last Admin: 04/21/17 17:27 Dose: 5 mg Heparin Sodium (Porcine) (Heparin) 5,000 units SC Q12 [facility] Last Admin: 04/21/17 21:43 Dose: 5,000 units Fluconazole (Diflucan Iv 100 Mg/50 Ml Ns) 50 mls @ 100 mls/hr IVPB Q24H [facility] Last Admin: 04/21/17 16:32 Dose: 100 mls/hr Insulin Aspart (Novolog) 0 unit SC ACHS [facility] PRN Reason: Protocol Last Admin: 04/21/17 21:43 Dose: Not Given Montelukast Sodium (Singulair) 10 mg PO HS [facility] Last Admin: 04/21/17 21:44 Dose: 10 mg Multivitamins (Hexavitamin) 1 tab PO DAILY [facility] Last Admin: 04/21/17 10:52 Dose: 1 tab Potassium Chloride (K-Dur 20 Meq Er Tab) 20 meq PO DAILY [facility] Last Admin: 04/21/17 14:43 Dose: 20 meq Raltegravir (Isentress) 400 mg PO BID [facility] Last Admin: 04/21/17 17:27 Dose: 400 mg Saccharomyces Boulardii (Florastor) 250 mg PO BID [facility] Last Admin: 04/21/17 17:26 Dose: 250 mg Saliva Substitute (First Magic Mouthwash) 5 ml PO Q4H [facility] Last Admin: 04/21/17 20:42 Dose: 5 ml Senna/Docusate Sodium (Senokot S 50 Mg-8.6 Mg) 1 tab PO HS PRN PRN Reason: Constipation Last Admin: 04/19/17 09:02 Dose: 1 tab Sertraline HCl (Zoloft) 50 mg PO DAILY [facility] Last Admin: 04/21/17 10:51 Dose: 50 mg Tenofovir Disoproxil Fumarate (Viread) 300 mg PO Q48H [facility] Last Admin: 04/20/17 17:00 Dose: 300 mg Trimethoprim/Sulfamethoxazole (Bactrim Ds Tab) 1 tab PO DAILY [facility] Last Admin: 04/21/17 10:51 Dose: 1 tab - Labs Labs: 04/21/17 08:36 04/21/17 08:36 - Head Exam Head Exam: ATRAUMATIC - Eye Exam Eye Exam: Normal appearance - ENT Exam ENT Exam: Mucous Membranes Dry - Respiratory Exam Respiratory Exam: NORMAL BREATHING PATTERN - Cardiovascular Exam Cardiovascular Exam: +S1, +S2 - GI/Abdominal Exam GI & Abdominal Exam: Normal Bowel Sounds Assessment and Plan (1) Anemia Assessment & Plan: iron deficient; on IV ferrlecit anemia of HIV renal disease consider Procrit supplementation to decrease transfusion need recommend transfusion support Status: Acute (2) Thrombocytopenia Status: Acute
[2017-04-22] MEDS: Mag&Al/Simet/Diphen/Lido 237 ML KIT PO SCH ×6 (00:20→23:09)
[2017-04-22 07:58] LABS: BASO # 0.2 K/uL (0.0-0.2); BASO % 1.5 % (0.0-2.0); EOS # 0.1 K/uL (0.0-0.7); EOS % 0.9 % (0.0-4.0); HEMATOCRIT 29.4 % (35.0-51.0); LYMPH # 0.6 K/uL (1.0-4.3); LYMPH % 5.2 % (20.0-40.0); MEAN CORPUSCULAR HEMOGLOBIN 25.6 pg (27.0-31.0); MEAN CORPUSCULAR HGB CONC 31.4 g/dL (33.0-37.0); MEAN PLATELET VOLUME 8.3 fL (7.2-11.7); MONO # 0.9 K/uL (0.0-0.8); MONO % 7.3 % (0.0-10.0); PLATELET COUNT 136 K/uL (130-400); RED CELL DISTRIBUTION WIDTH 23.9 % (11.5-14.5); WHITE BLOOD COUNT 12.5 K/uL (4.8-10.8)
[2017-04-22 08:07] LABS: MEAN CELL VOLUME 81.8 fL (80.0-94.0)
--- NOTE | 2017-04-22 08:26 | PCM.URO ---
Urology Progress Note - General General: No Complaints - Subjective Abdominal Pain: No Flank Pain: No Voiding Well: No Hematuria: No Dsypnea: Yes - Objective Lab Studies: Reviewed Lab Results Last 24 Hours: Laboratory Results - last 24 hr 04/21/17 04/21/17 04/21/17 08:36 08:36 10:23 WBC 9.8 RBC 2.78 L Hgb 7.0 L Hct 22.2 L MCV 79.6 L MCH 25.2 L MCHC 31.6 L RDW 28.6 H Plt Count 161 MPV 7.6 Neut % (Auto) 79.8 H Lymph % (Auto) 6.9 L Anson % (Auto) 9.6 Eos % (Auto) 1.5 Baso % (Auto) 2.2 H Neut # 7.9 H Lymph # 0.7 L Anson # 0.9 H Eos # 0.1 Baso # 0.2 Neutrophils % (Manual) 82 H Lymphocytes % (Manual) 9 L Monocytes % (Manual) 9 Platelet Estimate Normal Hypochromasia (manual) Slight Poikilocytosis (manual Slight Anisocytosis (manual) Moderate Microcytosis (manual) Slight Macrocytosis (manual) Slight Spherocytes Slight Target Cells Slight Tear Drop Cells Slight Ovalocytes Slight Schistocytes Slight Sodium 146 Potassium 3.2 L Chloride 108 H Carbon Dioxide 23 Anion Gap 18 BUN 29 H Creatinine 2.5 H Est GFR ( Amer) 32 Est GFR (Non-Af Amer) 26 POC Glucose (mg/dL) 76 Random Glucose 60 L Calcium 7.1 L Phosphorus 5.0 H Magnesium 1.7 Total Bilirubin 0.6 AST 30 ALT 29 Alkaline Phosphatase 125 Total Protein 5.6 L Albumin 3.1 L Globulin 2.5 Albumin/Globulin Ratio 1.2 Blood Type Antibody Screen 04/21/17 04/21/17 04/21/17 11:31 14:10 16:24 WBC RBC Hgb Hct MCV MCH MCHC RDW Plt Count MPV Neut % (Auto) Lymph % (Auto) Anson % (Auto) Eos % (Auto) Baso % (Auto) Neut # Lymph # Anson # Eos # Baso # Neutrophils % (Manual) Lymphocytes % (Manual) Monocytes % (Manual) Platelet Estimate Hypochromasia (manual) Poikilocytosis (manual Anisocytosis (manual) Microcytosis (manual) Macrocytosis (manual) Spherocytes Target Cells Tear Drop Cells Ovalocytes Schistocytes Sodium Potassium Chloride Carbon Dioxide Anion Gap BUN Creatinine Est GFR ( Amer) Est GFR (Non-Af Amer) POC Glucose (mg/dL) 78 80 Random Glucose Calcium Phosphorus Magnesium Total Bilirubin AST ALT Alkaline Phosphatase Total Protein Albumin Globulin Albumin/Globulin Ratio Blood Type O POSITIVE Antibody Screen Negative 04/21/17 04/22/17 04/22/17 21:20 02:07 03:03 WBC RBC Hgb Hct MCV MCH MCHC RDW Plt Count MPV Neut % (Auto) Lymph % (Auto) Anson % (Auto) Eos % (Auto) Baso % (Auto) Neut # Lymph # Anson # Eos # Baso # Neutrophils % (Manual) Lymphocytes % (Manual) Monocytes % (Manual) Platelet Estimate Hypochromasia (manual) Poikilocytosis (manual Anisocytosis (manual) Microcytosis (manual) Macrocytosis (manual) Spherocytes Target Cells Tear Drop Cells Ovalocytes Schistocytes Sodium Potassium Chloride Carbon Dioxide Anion Gap BUN Creatinine Est GFR ( Amer) Est GFR (Non-Af Amer) POC Glucose (mg/dL) 96 70 131 H Random Glucose Calcium Phosphorus Magnesium Total Bilirubin AST ALT Alkaline Phosphatase Total Protein Albumin Globulin Albumin/Globulin Ratio Blood Type Antibody Screen 04/22/17 07:40 WBC 12.5 H RBC 3.60 L Hgb 9.2 L D Hct 29.4 L MCV 81.8 D MCH 25.6 L MCHC 31.4 L RDW 23.9 H Plt Count 136 MPV 8.3 Neut % (Auto) 85.1 H Lymph % (Auto) 5.2 L Anson % (Auto) 7.3 Eos % (Auto) 0.9 Baso % (Auto) 1.5 Neut # 10.6 H Lymph # 0.6 L Anson # 0.9 H Eos # 0.1 Baso # 0.2 Neutrophils % (Manual) Lymphocytes % (Manual) Monocytes % (Manual) Platelet Estimate Hypochromasia (manual) Poikilocytosis (manual Anisocytosis (manual) Microcytosis (manual) Macrocytosis (manual) Spherocytes Target Cells Tear Drop Cells Ovalocytes Schistocytes Sodium Potassium Chloride Carbon Dioxide Anion Gap BUN Creatinine Est GFR ( Amer) Est GFR (Non-Af Amer) POC Glucose (mg/dL) Random Glucose Calcium Phosphorus Magnesium Total Bilirubin AST ALT Alkaline Phosphatase Total Protein Albumin Globulin Albumin/Globulin Ratio Blood Type Antibody Screen Intake & Output: Intake & Output 04/21/17 04/22/17 04/22/17 18:59 06:59 18:59 Intake Total 0 1910 Output Total 800 Balance 0 1110 Intake: Intake, IV Amount 100 right portacath 100 Oral 850 Blood Product 0 875 Red Blood Cells Cpd As1 325 Lr Unit [id number] Red Blood Cells Cpd As1 0 325 Lr Unit [id number] Other 85 Red Blood Cells Cpd As1 50 Lr Unit [id number] Red Blood Cells Cpd As1 35 Lr Unit [id number] Output: Urine 800 Urethral (Silverman) 800 Other: # Bowel Movements 1 Vital Signs: Vital Signs - 24 hr 04/21/17 04/21/17 04/21/17 15:00 19:01 19:16 Temperature 98.1 F 98.1 F 98.2 F Pulse Rate 76 82 83 Respiratory 20 20 20 Rate Blood Pressure 115/69 117/73 117/65 O2 Sat by Pulse 99 Oximetry 04/21/17 04/21/17 04/21/17 19:31 20:01 22:05 Temperature 97.3 F L 97.6 F 97.3 F L Pulse Rate 85 80 85 Respiratory 20 21 20 Rate Blood Pressure 123/71 122/58 L 128/78 O2 Sat by Pulse Oximetry 04/21/17 04/21/17 04/22/17 23:08 23:38 00:08 Temperature 97.7 F 98.5 F 98.3 F Pulse Rate 64 86 83 Respiratory 20 20 20 Rate Blood Pressure 125/78 132/64 138/75 O2 Sat by Pulse 96 97 Oximetry 04/22/17 04/22/17 02:00 02:40 Temperature 97.7 F Pulse Rate 77 77 Respiratory 20 Rate Blood Pressure 123/70 O2 Sat by Pulse Oximetry - Physical Exam Abdominal Exam: Soft, Non-Tender. absent: Non-Distended Back: No CVA Tenderness Urinary Catheter Draining Well: Yes Urine Color: Clear, Yellow - Male Phallus: Uncircumcised (marked penile edema) Scrotum: Edema - Plan Additional Information: IMP: edema of genitalia. chf. uti. indwelling silverman catheter. Rec: elevation of genitalia. catheter care. Possibel trial fo voiding t/f. YS - Date & Time of Note Date: 04/22/17 Time: 08:25
[2017-04-22] MEDS: (Novolog) Insulin Aspart, Recombinant 100 u/ml 10 ml vial SC SCH ×4 (08:28→23:09)
[2017-04-22 08:39] LABS: BASOPHIL 1 % (0-2); EOSINOPHIL 1 % (0-4); NEUTROPHIL 85 % (50-75); TOTAL CELLS COUNTED 100
--- NOTE | 2017-04-22 08:40 | PN ---
DATE: The patient complains of weakness, fatigue, tiredness. The patient gets bedrest and supportive care. Michael Stanley MD
[2017-04-22 08:54] LABS: ALB/GLOB RATIO 1.2 (1.0-2.1); BILIRUBIN,TOTAL 0.6 mg/dL (0.2-1.3); CALCIUM 7.7 mg/dl (8.6-10.4); MAGNESIUM 1.7 mg/dL (1.6-2.3); PHOSPHOROUS 5.3 mg/dL (2.5-4.5); POTASSIUM 3.3 mmol/L (3.6-5.2)
[2017-04-22] MEDS: Ferric Sodium Gluconat Complex 62.5 mg/5 ml Vial IVPB SCH (12:21)
[2017-04-22] MEDS: Potassium Chloride 20 mEq ER Tab PO SCH (12:23)
[2017-04-22] MEDS: Tmp-Smz 800 mg-160 mg DS Tab PO SCH (12:23)
[2017-04-22] MEDS: Multiple Vitamins Tab PO SCH (12:24)
[2017-04-22] MEDS: Saccharomyces Boulardi 250 mg Cap PO SCH ×2 (12:25→17:36)
--- NOTE | 2017-04-22 13:18 | CP.PCM.PN ---
Subjective - Date & Time of Evaluation Date of Evaluation: 04/22/17 Time of Evaluation: 13:16 - Subjective Subjective: Very lethargic now UO- 800ml this AM creat sl better at 2.3 Hg increased now Objective - Vital Signs/Intake and Output Vital Signs (last 24 hours): Temp Pulse Resp BP Pulse Ox 97 F L 76 20 117/73 95 04/22/17 08:55 04/22/17 08:55 04/22/17 08:55 04/22/17 08:55 04/22/17 08:55 Intake and Output: 04/22/17 04/22/17 06:59 18:59 Intake Total 1910 Output Total 800 Balance 1110 - Medications Medications: Current Medications Acetaminophen (Tylenol 325mg Tab) 650 mg PO Q6H PRN PRN Reason: Fever >100.4 F Last Admin: 04/14/17 11:35 Dose: 650 mg Benztropine Mesylate (Cogentin) 1 mg PO BID [facility] Last Admin: 04/22/17 12:23 Dose: 1 mg Dextrose (Dextrose 50% Inj) 50 ml IV Q6H PRN PRN Reason: Low blood sugar Emtricitabine (Emtriva) 200 mg PO Q48H [facility] Last Admin: 04/20/17 17:00 Dose: 200 mg Famotidine (Pepcid) 20 mg PO DAILY [facility] Last Admin: 04/22/17 12:24 Dose: 20 mg Ferric Sodium Gluconate Complex (Ferrlecit) 125 mg IVPB DAILY [facility] Stop: 04/27/17 10:01 Last Admin: 04/22/17 12:21 Dose: 125 mg Ferrous Sulfate (Feosol) 325 mg PO DAILY [facility] Last Admin: 04/18/17 09:25 Dose: 325 mg Fluphenazine HCl (Prolixin) 5 mg PO BID [facility] Last Admin: 04/22/17 12:22 Dose: 5 mg Heparin Sodium (Porcine) (Heparin) 5,000 units SC Q12 [facility] Last Admin: 04/22/17 12:22 Dose: 5,000 units Fluconazole (Diflucan Iv 100 Mg/50 Ml Ns) 50 mls @ 100 mls/hr IVPB Q24H [facility] Last Admin: 04/21/17 16:32 Dose: 100 mls/hr Insulin Aspart (Novolog) 0 unit SC ACHS [facility] PRN Reason: Protocol Last Admin: 04/22/17 12:25 Dose: Not Given Montelukast Sodium (Singulair) 10 mg PO HS [facility] Last Admin: 04/21/17 21:44 Dose: 10 mg Multivitamins (Hexavitamin) 1 tab PO DAILY [facility] Last Admin: 04/22/17 12:24 Dose: 1 tab Potassium Chloride (K-Dur 20 Meq Er Tab) 20 meq PO DAILY [facility] Last Admin: 04/22/17 12:23 Dose: 20 meq Raltegravir (Isentress) 400 mg PO BID [facility] Last Admin: 04/22/17 12:24 Dose: 400 mg Saccharomyces Boulardii (Florastor) 250 mg PO BID [facility] Last Admin: 04/22/17 12:25 Dose: 250 mg Saliva Substitute (First Magic Mouthwash) 5 ml PO Q4H [facility] Last Admin: 04/22/17 12:50 Dose: 5 ml Senna/Docusate Sodium (Senokot S 50 Mg-8.6 Mg) 1 tab PO HS PRN PRN Reason: Constipation Last Admin: 04/19/17 09:02 Dose: 1 tab Sertraline HCl (Zoloft) 50 mg PO DAILY [facility] Last Admin: 04/22/17 12:24 Dose: 50 mg Tenofovir Disoproxil Fumarate (Viread) 300 mg PO Q48H [facility] Last Admin: 04/20/17 17:00 Dose: 300 mg Trimethoprim/Sulfamethoxazole (Bactrim Ds Tab) 1 tab PO DAILY [facility] Last Admin: 04/22/17 12:23 Dose: 1 tab - Labs Labs: 04/22/17 07:40 04/22/17 07:40 - Constitutional Appears: Confused, Chronically Ill - Head Exam Head Exam: ATRAUMATIC, NORMAL INSPECTION - Eye Exam Eye Exam: EOMI, Normal appearance - Neck Exam Neck Exam: Normal Inspection. absent: Tenderness - Respiratory Exam Respiratory Exam: Decreased Breath Sounds, NORMAL BREATHING PATTERN - Cardiovascular Exam Cardiovascular Exam: REGULAR RHYTHM, +S1 - GI/Abdominal Exam GI & Abdominal Exam: Soft. absent: Tenderness - Extremities Exam Extremities Exam: Pedal Edema. absent: Tenderness - Neurological Exam Neurological Exam: Alert, CN II-XII Intact - Skin Skin Exam: Dry, Warm Assessment and Plan (1) SUZANNE (acute kidney injury) Status: Acute (2) Obstructive uropathy Status: Acute (3) CHF (congestive heart failure) Status: Acute (4) COPD (chronic obstructive pulmonary disease) Status: Acute (5) Sepsis Status: Acute (6) Lung cancer Status: Acute (7) HIV antibody positive Status: Acute - Assessment and Plan (Free Text) Plan: Replete K follow up chemisreies avoid nephrotoxics Try to avoid excess bactrim
--- NOTE | 2017-04-22 13:31 | CP.PCM.PN ---
Subjective - Date & Time of Evaluation Date of Evaluation: 04/22/17 Time of Evaluation: 13:30 - Subjective Subjective: Progress note. Attending: Dr. Stanley Pt seen and examined at bedside. No acute distress, but lethargic. No current complaints. No fevers, chills, vomiting, diarrhea. Objective - Vital Signs/Intake and Output Vital Signs (last 24 hours): Temp Pulse Resp BP Pulse Ox 97 F L 76 20 117/73 95 04/22/17 08:55 04/22/17 08:55 04/22/17 08:55 04/22/17 08:55 04/22/17 08:55 Intake and Output: 04/22/17 04/22/17 06:59 18:59 Intake Total 1910 Output Total 800 Balance 1110 - Medications Medications: Current Medications Acetaminophen (Tylenol 325mg Tab) 650 mg PO Q6H PRN PRN Reason: Fever >100.4 F Last Admin: 04/14/17 11:35 Dose: 650 mg Benztropine Mesylate (Cogentin) 1 mg PO BID [facility] Last Admin: 04/22/17 12:23 Dose: 1 mg Dextrose (Dextrose 50% Inj) 50 ml IV Q6H PRN PRN Reason: Low blood sugar Emtricitabine (Emtriva) 200 mg PO Q48H [facility] Last Admin: 04/20/17 17:00 Dose: 200 mg Famotidine (Pepcid) 20 mg PO DAILY [facility] Last Admin: 04/22/17 12:24 Dose: 20 mg Ferric Sodium Gluconate Complex (Ferrlecit) 125 mg IVPB DAILY [facility] Stop: 04/27/17 10:01 Last Admin: 04/22/17 12:21 Dose: 125 mg Ferrous Sulfate (Feosol) 325 mg PO DAILY [facility] Last Admin: 04/18/17 09:25 Dose: 325 mg Fluphenazine HCl (Prolixin) 5 mg PO BID [facility] Last Admin: 04/22/17 12:22 Dose: 5 mg Heparin Sodium (Porcine) (Heparin) 5,000 units SC Q12 [facility] Last Admin: 04/22/17 12:22 Dose: 5,000 units Fluconazole (Diflucan Iv 100 Mg/50 Ml Ns) 50 mls @ 100 mls/hr IVPB Q24H [facility] Last Admin: 04/21/17 16:32 Dose: 100 mls/hr Potassium Chloride (Potassium Chloride 20 Meq/100 Ml) 20 meq in 100 mls @ 50 mls/hr IVPB ONCE ONE Stop: 04/22/17 15:59 Insulin Aspart (Novolog) 0 unit SC ACHS [facility] PRN Reason: Protocol Last Admin: 04/22/17 12:25 Dose: Not Given Montelukast Sodium (Singulair) 10 mg PO HS [facility] Last Admin: 04/21/17 21:44 Dose: 10 mg Multivitamins (Hexavitamin) 1 tab PO DAILY [facility] Last Admin: 04/22/17 12:24 Dose: 1 tab Potassium Chloride (K-Dur 20 Meq Er Tab) 20 meq PO DAILY [facility] Last Admin: 04/22/17 12:23 Dose: 20 meq Raltegravir (Isentress) 400 mg PO BID [facility] Last Admin: 04/22/17 12:24 Dose: 400 mg Saccharomyces Boulardii (Florastor) 250 mg PO BID [facility] Last Admin: 04/22/17 12:25 Dose: 250 mg Saliva Substitute (First Magic Mouthwash) 5 ml PO Q4H [facility] Last Admin: 04/22/17 12:50 Dose: 5 ml Senna/Docusate Sodium (Senokot S 50 Mg-8.6 Mg) 1 tab PO HS PRN PRN Reason: Constipation Last Admin: 04/19/17 09:02 Dose: 1 tab Sertraline HCl (Zoloft) 50 mg PO DAILY [facility] Last Admin: 04/22/17 12:24 Dose: 50 mg Tenofovir Disoproxil Fumarate (Viread) 300 mg PO Q48H [facility] Last Admin: 04/20/17 17:00 Dose: 300 mg Trimethoprim/Sulfamethoxazole (Bactrim Ds Tab) 1 tab PO DAILY [facility] Last Admin: 04/22/17 12:23 Dose: 1 tab - Labs Labs: 04/22/17 07:40 04/22/17 07:40 - Constitutional Appears: Chronically Ill - Head Exam Head Exam: ATRAUMATIC, NORMAL INSPECTION, NORMOCEPHALIC - Eye Exam Eye Exam: EOMI - ENT Exam ENT Exam: Mucous Membranes Moist - Neck Exam Neck Exam: Full ROM, Normal Inspection - Respiratory Exam Respiratory Exam: Decreased Breath Sounds - Cardiovascular Exam Cardiovascular Exam: +S1, +S2 - GI/Abdominal Exam GI & Abdominal Exam: Soft, Normal Bowel Sounds. absent: Tenderness - Extremities Exam Extremities Exam: Full ROM, Pedal Edema. absent: Normal Inspection - Neurological Exam Neurological Exam: CN II-XII Intact - Psychiatric Exam Psychiatric exam: Normal Affect, Normal Mood - Skin Skin Exam: Dry, Intact, Normal Color, Warm Assessment and Plan - Assessment and Plan (Free Text) Assessment: This is a 66 yo male with 1. increased CR -nephrotic range proteinuria -nephrology consulted. recs appreciated 2. Urosepsis -urine culture most recently shows yeast species -pt has been afebrile -ID consulted. recs appreciated -cont IV diflucan -cont tylenol for fever -urology consulted. recs appreciated. Dr. Paula 3. Anasarca -cont to monitor -nephrology consulted. recs appreciated 4. Hx of COPD -continue montelukast daily 5. hx of CHF -cont K Dur 20 daily 6. hx of diarrhea -resolved 7. hx of pancytopenia -continue ferric sodium complex daily -Heme/onc consulted. recs appreciated. 8. Mouth sores -continue mouthwash daily 9. Hx of CARMELA -cont CPAP at night 10. Hx of HIV -cont emtricitabine -cont raltegravir -continue tenofovir -continue bactrim 11. hx of hypoglycemia -continue dextrose injection prn 12. hx of HLD -cont to monitor 13. hx of transaminitis -cont to monitor 14. hx of schizophrenia -psych consult. recs appreciated -continue benztropine -continue fluphenazine -continue sertraline 15. GI/DVT ppx -continue pepcid 20 daily -continue heparin SC discussed with Dr. Stanley
[2017-04-22] MEDS: Fluconazole IV 100mg/50 ml NS 50 ML IVPB SCH (14:07)
[2017-04-22] MEDS: EMTRICITABINE 200 MG CAP PO SCH (17:34)
[2017-04-23] MEDS: Mag&Al/Simet/Diphen/Lido 237 ML KIT PO SCH ×5 (00:04→17:45)
[2017-04-23 07:20] LABS: BASO # 0.2 K/uL (0.0-0.2); BASO % 1.5 % (0.0-2.0); EOS # 0.3 K/uL (0.0-0.7); EOS % 2.2 % (0.0-4.0); LYMPH # 0.6 K/uL (1.0-4.3); LYMPH % 5.1 % (20.0-40.0); MEAN CELL VOLUME 82.3 fL (80.0-94.0); MEAN CORPUSCULAR HEMOGLOBIN 26.3 pg (27.0-31.0); MEAN PLATELET VOLUME 8.4 fL (7.2-11.7); MONO # 0.8 K/uL (0.0-0.8); PLATELET COUNT 137 K/uL (130-400); RED CELL DISTRIBUTION WIDTH 23.9 % (11.5-14.5); WHITE BLOOD COUNT 12.1 K/uL (4.8-10.8)
--- NOTE | 2017-04-23 07:27 | CP.PCM.PN ---
Subjective - Date & Time of Evaluation Date of Evaluation: 04/23/17 Time of Evaluation: 08:00 - Subjective Subjective: Medicine Progress Note- Dr. Stanley's Service: Patient seen and examined at bedside this AM. Patient is a bit confused this AM and wants to get out of bed. Patient is tolerating nasal cannula. Refusing BIPAP as per nursing. Patient continues to have silverman in place with hematuria. No other complaints this AM. Objective - Vital Signs/Intake and Output Vital Signs (last 24 hours): Temp Pulse Resp BP Pulse Ox 97.6 F 77 20 126/76 99 04/23/17 00:00 04/23/17 00:00 04/23/17 00:00 04/23/17 00:00 04/23/17 00:00 Intake and Output: 04/23/17 04/23/17 06:59 18:59 Intake Total 240 Output Total 600 Balance -360 - Medications Medications: Current Medications Acetaminophen (Tylenol 325mg Tab) 650 mg PO Q6H PRN PRN Reason: Fever >100.4 F Last Admin: 04/14/17 11:35 Dose: 650 mg Benztropine Mesylate (Cogentin) 1 mg PO BID [facility] Last Admin: 04/22/17 17:34 Dose: 1 mg Dextrose (Dextrose 50% Inj) 50 ml IV Q6H PRN PRN Reason: Low blood sugar Emtricitabine (Emtriva) 200 mg PO Q48H [facility] Last Admin: 04/22/17 17:34 Dose: 200 mg Famotidine (Pepcid) 20 mg PO DAILY [facility] Last Admin: 04/22/17 12:24 Dose: 20 mg Ferric Sodium Gluconate Complex (Ferrlecit) 125 mg IVPB DAILY [facility] Stop: 04/27/17 10:01 Last Admin: 04/22/17 12:21 Dose: 125 mg Ferrous Sulfate (Feosol) 325 mg PO DAILY [facility] Last Admin: 04/18/17 09:25 Dose: 325 mg Fluphenazine HCl (Prolixin) 5 mg PO BID [facility] Last Admin: 04/22/17 17:41 Dose: 5 mg Fluconazole (Diflucan Iv 100 Mg/50 Ml Ns) 50 mls @ 100 mls/hr IVPB Q24H [facility] Last Admin: 04/22/17 14:07 Dose: 100 mls/hr Insulin Aspart (Novolog) 0 unit SC ACHS [facility] PRN Reason: Protocol Last Admin: 04/22/17 23:09 Dose: Not Given Montelukast Sodium (Singulair) 10 mg PO [facility] Last Admin: 04/22/17 23:08 Dose: 10 mg Multivitamins (Hexavitamin) 1 tab PO DAILY [facility] Last Admin: 04/22/17 12:24 Dose: 1 tab Potassium Chloride (K-Dur 20 Meq Er Tab) 20 meq PO DAILY [facility] Last Admin: 04/22/17 12:23 Dose: 20 meq Raltegravir (Isentress) 400 mg PO BID [facility] Last Admin: 04/22/17 12:24 Dose: 400 mg Saccharomyces Boulardii (Florastor) 250 mg PO BID [facility] Last Admin: 04/22/17 17:36 Dose: 250 mg Saliva Substitute (First Magic Mouthwash) 5 ml PO Q4H [facility] Last Admin: 04/23/17 04:18 Dose: 5 ml Senna/Docusate Sodium (Senokot S 50 Mg-8.6 Mg) 1 tab PO PRN PRN Reason: Constipation Last Admin: 04/19/17 09:02 Dose: 1 tab Sertraline HCl (Zoloft) 50 mg PO DAILY [facility] Last Admin: 04/22/17 12:24 Dose: 50 mg Tenofovir Disoproxil Fumarate (Viread) 300 mg PO Q48H [facility] Last Admin: 04/22/17 17:33 Dose: 300 mg Trimethoprim/Sulfamethoxazole (Bactrim Ds Tab) 1 tab PO DAILY [facility] Last Admin: 04/22/17 12:23 Dose: 1 tab - Labs Labs: 04/23/17 07:05 04/22/17 07:40 - Constitutional Appears: No Acute Distress, Chronically Ill - Head Exam Head Exam: NORMAL INSPECTION, NORMOCEPHALIC - Eye Exam Eye Exam: EOMI, Normal appearance - ENT Exam ENT Exam: Mucous Membranes Moist - Respiratory Exam Respiratory Exam: Decreased Breath Sounds. absent: Rales, Rhonchi - Cardiovascular Exam Cardiovascular Exam: REGULAR RHYTHM, +S1, +S2 - GI/Abdominal Exam GI & Abdominal Exam: Soft. absent: Distended, Tenderness - Extremities Exam Extremities Exam: Pedal Edema. absent: Tenderness - Neurological Exam Neurological Exam: Alert, Awake. absent: Oriented x3 - Psychiatric Exam Psychiatric exam: Normal Affect, Normal Mood - Skin Skin Exam: Normal Color, Warm Assessment and Plan (1) SUZANNE (acute kidney injury) Assessment & Plan: -nephrotic range proteinuria -nephrology consulted. 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 Status: Acute (2) UTI (urinary tract infection) Assessment & Plan: -Urine culture most recently shows yeast species -ID consulted- Dr. La-. recs appreciated -cont IV diflucan- for 7 days total -urology consulted. recs appreciated. Dr. Paula As per Dr. Paula- patient may be discharged with silverman to group home. Patient will need to follow up as outpatient for cystoscopy given complex cyst found in bladder US. Status: Acute (3) Anasarca Assessment & Plan: -Cont to monitor -nephrology consulted. recs appreciated -Patient had Albumin 12.5gm Q6H x 5 days. Lasix 40mg IVP qd already on. Status: Acute (4) COPD (chronic obstructive pulmonary disease) Assessment & Plan: -continue montelukast daily Status: Acute (5) CHF (congestive heart failure) Assessment & Plan: ECHO 02/26/17: mild pulm HTN. EF 51%, LA and RA mildly dilated. Lasix 20 mg PO daily Status: Acute (6) HIV antibody positive Assessment & Plan: -cont emtricitabine -cont raltegravir -continue tenofovir -continue bactrim Status: Acute (7) CARMELA (obstructive sleep apnea) Assessment & Plan: -cont CPAP at night Status: Acute (8) Schizophrenia Assessment & Plan: -psych consult. recs appreciated -continue benztropine -continue fluphenazine -continue sertraline Status: Acute (9) Pancytopenia Assessment & Plan: -Heme/onc consulted. recs appreciated. -Iron deficiency anemia -continue ferric sodium complex daily Status: Acute (10) Prophylactic measure Assessment & Plan: -continue pepcid 20 daily -continue heparin SC Discharge planning back to group home. All management as per Dr. Stanley Status: Acute
[2017-04-23 07:43] LABS: POTASSIUM 3.1 mmol/L (3.6-5.2)
[2017-04-23 07:45] LABS: ALB/GLOB RATIO 1.1 (1.0-2.1); BILIRUBIN,TOTAL 0.6 mg/dL (0.2-1.3); TOTAL PROTEIN 5.7 g/dL (6.3-8.3)
[2017-04-23 07:46] LABS: CALCIUM 7.3 mg/dl (8.6-10.4); MAGNESIUM 1.7 mg/dL (1.6-2.3); PHOSPHOROUS 5.1 mg/dL (2.5-4.5)
[2017-04-23] MEDS: (Novolog) Insulin Aspart, Recombinant 100 u/ml 10 ml vial SC SCH ×3 (08:07→17:48)
[2017-04-23 08:34] VITALS: O2SAT 98
[2017-04-23 08:51] LABS: BASOPHIL 2 % (0-2); EOSINOPHIL 3 % (0-4); NEUTROPHIL 86 % (50-75); TOTAL CELLS COUNTED 100
--- NOTE | 2017-04-23 10:22 | CP.PCM.PN ---
Subjective - Date & Time of Evaluation Date of Evaluation: 04/23/17 Time of Evaluation: 10:21 - Subjective Subjective: seen and examined c/o upset stomach but denies any diarrhea Objective - Vital Signs/Intake and Output Vital Signs (last 24 hours): Temp Pulse Resp BP Pulse Ox 97.8 F 76 20 113/81 98 04/23/17 08:00 04/23/17 08:00 04/23/17 08:00 04/23/17 08:00 04/23/17 08:00 Intake and Output: 04/23/17 04/23/17 06:59 18:59 Intake Total 240 Output Total 600 Balance -360 - Medications Medications: Current Medications Acetaminophen (Tylenol 325mg Tab) 650 mg PO Q6H PRN PRN Reason: Fever >100.4 F Last Admin: 04/14/17 11:35 Dose: 650 mg Benztropine Mesylate (Cogentin) 1 mg PO BID [facility] Last Admin: 04/22/17 17:34 Dose: 1 mg Dextrose (Dextrose 50% Inj) 50 ml IV Q6H PRN PRN Reason: Low blood sugar Emtricitabine (Emtriva) 200 mg PO Q48H [facility] Last Admin: 04/22/17 17:34 Dose: 200 mg Famotidine (Pepcid) 20 mg PO DAILY [facility] Last Admin: 04/22/17 12:24 Dose: 20 mg Ferric Sodium Gluconate Complex (Ferrlecit) 125 mg IVPB DAILY [facility] Stop: 04/27/17 10:01 Last Admin: 04/22/17 12:21 Dose: 125 mg Ferrous Sulfate (Feosol) 325 mg PO DAILY [facility] Last Admin: 04/18/17 09:25 Dose: 325 mg Fluphenazine HCl (Prolixin) 5 mg PO BID [facility] Last Admin: 04/22/17 17:41 Dose: 5 mg Fluconazole (Diflucan Iv 100 Mg/50 Ml Ns) 50 mls @ 100 mls/hr IVPB Q24H [facility] Last Admin: 04/22/17 14:07 Dose: 100 mls/hr Insulin Aspart (Novolog) 0 unit SC ACHS [facility] PRN Reason: Protocol Last Admin: 04/23/17 08:07 Dose: Not Given Montelukast Sodium (Singulair) 10 mg PO HS [facility] Last Admin: 04/22/17 23:08 Dose: 10 mg Multivitamins (Hexavitamin) 1 tab PO DAILY [facility] Last Admin: 04/22/17 12:24 Dose: 1 tab Potassium Chloride (K-Dur 20 Meq Er Tab) 20 meq PO DAILY [facility] Last Admin: 04/22/17 12:23 Dose: 20 meq Raltegravir (Isentress) 400 mg PO BID [facility] Last Admin: 04/22/17 12:24 Dose: 400 mg Saccharomyces Boulardii (Florastor) 250 mg PO BID [facility] Last Admin: 04/22/17 17:36 Dose: 250 mg Saliva Substitute (First Magic Mouthwash) 5 ml PO Q4H [facility] Last Admin: 04/23/17 08:14 Dose: 5 ml Senna/Docusate Sodium (Senokot S 50 Mg-8.6 Mg) 1 tab PO HS PRN PRN Reason: Constipation Last Admin: 04/19/17 09:02 Dose: 1 tab Sertraline HCl (Zoloft) 50 mg PO DAILY [facility] Last Admin: 04/22/17 12:24 Dose: 50 mg Tenofovir Disoproxil Fumarate (Viread) 300 mg PO Q48H [facility] Last Admin: 04/22/17 17:33 Dose: 300 mg Trimethoprim/Sulfamethoxazole (Bactrim Ds Tab) 1 tab PO DAILY [facility] Last Admin: 04/22/17 12:23 Dose: 1 tab - Labs Labs: 04/23/17 07:05 04/23/17 07:05 - Constitutional Appears: Non-toxic, Unkempt, Chronically Ill - Head Exam Head Exam: NORMAL INSPECTION - Eye Exam Eye Exam: Normal appearance - ENT Exam ENT Exam: Mucous Membranes Moist, Normal Exam - Neck Exam Neck Exam: Normal Inspection - Respiratory Exam Respiratory Exam: Decreased Breath Sounds, NORMAL BREATHING PATTERN - Cardiovascular Exam Cardiovascular Exam: RRR - GI/Abdominal Exam GI & Abdominal Exam: Distended, Soft - Extremities Exam Additional comments: chronic stasis Assessment and Plan (1) SUZANNE (acute kidney injury) Status: Acute (2) CHF (congestive heart failure) Status: Acute (3) HIV antibody positive Status: Acute (4) Hypokalemia Status: Acute (5) Lung cancer Status: Acute - Assessment and Plan (Free Text) Assessment: resolving suzanne potassium supplementation 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
[2017-04-23] MEDS: Ferric Sodium Gluconat Complex 62.5 mg/5 ml Vial IVPB SCH (10:53)
[2017-04-23] MEDS: Saccharomyces Boulardi 250 mg Cap PO SCH ×2 (10:53→17:52)
[2017-04-23] MEDS: Potassium Chloride 20 mEq ER Tab PO SCH (10:54)
[2017-04-23] MEDS: Tmp-Smz 800 mg-160 mg DS Tab PO SCH (10:54)
[2017-04-23] MEDS: Multiple Vitamins Tab PO SCH (10:54)
--- NOTE | 2017-04-23 15:05 | CT ---
PROCEDURE: CT Abdomen and Pelvis without Oral or IV contrast. HISTORY: bladder mass seen on US COMPARISON: Renal/urinary bladder ultrasound performed 04/09/17 TECHNIQUE: Contiguous axial images of the abdomen and pelvis. No oral or IV contrast administered. Coronal and Sagittal reformats generated. Radiation dose: Total exam DLP = 1187.50 mGy-cm. This CT exam was performed using one or more of the following dose reduction techniques: Automated exposure control, adjustment of the mA and/or kV according to patient size, and/or use of iterative reconstruction technique. FINDINGS: There is limited evaluation of the solid organs without the administration of IV contrast. LOWER THORAX: Small bilateral pleural effusions, right greater than left. Associated compressive consolidations. No pneumothorax. Median sternotomy wires. Partially imaged dense valvular calcifications. Small hiatal hernia. LIVER: Unremarkable unenhanced appearance. GALLBLADDER AND BILE DUCTS: Cholecystectomy. PANCREAS: Unremarkable unenhanced appearance. SPLEEN: Unremarkable unenhanced appearance. ADRENALS: Unremarkable unenhanced appearance. KIDNEYS AND URETERS: No hydronephrosis or obstructing renal calculus. BLADDER: Price catheter within a decompressed urinary bladder. REPRODUCTIVE: Prostate calcifications. Bilateral hydroceles. APPENDIX: The presumed appendix appears within normal limits of caliber. No secondary signs of acute appendicitis. BOWEL: The stomach is nondistended. Lack of oral contrast limits evaluation for bowel pathology. The bowel loops appear within normal limits of caliber without evidence of intestinal obstruction. PERITONEUM: Small pelvic free fluid. No definite free air. LYMPH NODES: No bulky lymphadenopathy identified. VASCULATURE: IVC filter. No aortic aneurysm. BONES: Osseous demineralization. Degenerative changes. Compression fracture deformities including L1 and T12 OTHER FINDINGS: Anasarca. Soft tissue nodules within the anterior pelvic wall, possibly injection granulomas; correlate clinically. Fluid collection within the anterior lower abdominal/upper pelvic wall measuring approximately 8.8 cm (AP) by 1.8 cm (transverse) by 3.5 cm (cc dimension). Correlate clinically. Abscess is not excluded. Large bilateral fat containing inguinal hernias. IMPRESSION: Small bilateral pleural effusions, right greater than left. Associated compressive consolidations. Anasarca. Soft tissue nodules within the anterior pelvic wall, possibly injection granulomas; correlate clinically. Fluid collection within the anterior lower abdominal/upper pelvic wall measuring approximately 8.8 cm x 1.8 cm x 3.5 cm. Correlate clinically. Abscess is not excluded. Price catheter within a decompressed urinary bladder precludes further evaluation. Bilateral hydroceles. Large bilateral fat containing inguinal hernias. Cholecystectomy. Small pelvic free fluid. IVC filter. Compression fracture deformities noted particularly L1 and T12.
[2017-04-23] MEDS: Fluconazole IV 100mg/50 ml NS 50 ML IVPB SCH (15:19)
[2017-04-23 16:08] VITALS: BP 120/83; PULSE 73; TEMP 98.1
== END 2017-04-23 18:33 | DRG 871 ==
LOC: C.ER 13:27 → C.9E 15:34 → C.6T 17:46 → C.9I 03-22 13:21 → C.3T 03-28 13:20 → C.5S 04-14 18:17 → C.3T 04-16 21:40
PROVIDERS: ADMIT Internal Medicine Pulmonary Disease; ATTEND Internal Medicine Pulmonary Disease
PROC: 5A09557 Assistance with Respiratory Ventilation, Greater than 96 Consecutive Hours, Continuous Positive Airway Pressure (ICD-10-PCS; principal; 2017-03-08)
PROC: 30233N1 Transfusion of Nonautologous Red Blood Cells into Peripheral Vein, Percutaneous Approach (ICD-10-PCS; 2017-03-09)
PROC: 30233R1 Transfusion of Nonautologous Platelets into Peripheral Vein, Percutaneous Approach (ICD-10-PCS; 2017-04-21)
DX: A41.59 Other Gram-negative sepsis (principal); E13.10 Other specified diabetes mellitus with ketoacidosis without coma; N17.9 Acute kidney failure, unspecified; I13.0 Hypertensive heart and chronic kidney disease with heart failure and stage 1 through stage 4 chronic kidney disease, or unspecified chronic kidney disease; J18.9 Pneumonia, unspecified organism; D61.818 Other pancytopenia; I50.9 Heart failure, unspecified; C34.90 Malignant neoplasm of unspecified part of unspecified bronchus or lung; N13.9 Obstructive and reflux uropathy, unspecified; N48.89 Other specified disorders of penis; J43.9 Emphysema, unspecified; E78.5 Hyperlipidemia, unspecified; E87.6 Hypokalemia; R65.20 Severe sepsis without septic shock; J45.909 Unspecified asthma, uncomplicated; M19.90 Unspecified osteoarthritis, unspecified site; Z21 Asymptomatic human immunodeficiency virus [HIV] infection status; Z79.4 Long term (current) use of insulin; G47.33 Obstructive sleep apnea (adult) (pediatric); Z87.891 Personal history of nicotine dependence; F25.1 Schizoaffective disorder, depressive type; Z51.5 Encounter for palliative care; I35.0 Nonrheumatic aortic (valve) stenosis; G47.00 Insomnia, unspecified; K59.00 Constipation, unspecified; Z16.29 Resistance to other single specified antibiotic; Z91.19 Patient's noncompliance with other medical treatment and regimen; R19.7 Diarrhea, unspecified; Z66 Do not resuscitate; E83.51 Hypocalcemia; N18.9 Chronic kidney disease, unspecified

== ENCOUNTER 2017-05-03 11:58 | Inpatient (IN) | payer MEDICARE, OTHER ==
[2017-05-03 11:58] VITALS: PULSE 132
[2017-05-03 12:13] VITALS: BMI 31.3
--- NOTE | 2017-05-03 12:24 | C.PDOC ---
History Of Present Illness Patient BIBA from MD for evaluation of SOB and lethargy. Patient has h/o COPD, HIV, DM, HTN. History limited due to clinical condition. As per MD patient is DNR/DNI. Time Seen by Provider: 05/03/17 12:00 Chief Complaint (Nursing): Shortness Of Breath History Per: EMS History/Exam Limitations: clinical condition Onset/Duration Of Symptoms: Other (this morning ) Current Symptoms Are (Timing): Still Present Past Medical History Reviewed: Historical Data, Nursing Documentation, Vital Signs Vital Signs: Last Vital Signs Temp 97.3 F L 05/04/17 15:31 Pulse 88 05/04/17 19:58 Resp 16 05/04/17 15:31 BP 94/56 L 05/04/17 15:31 Pulse Ox 99 05/04/17 15:31 - Medical History PMH: Arthritis, Asthma, CHF, COPD, Diabetes, Emphysema, Fractures (left lower leg, wrist , hand), HIV, Hyperlipidemia - [facility] Procedures ASSISTANCE WITH RESPIRATORY VENTILATION, >96 HRS, CPAP (03/08/17) NEBULIZER THERAPY (11/15/13) TRANSFUSE NONAUT PLATELETS IN PERIPH VEIN, PERC (03/08/17) TRANSFUSE NONAUT RED BLOOD CELLS IN PERIPH VEIN, PERC (03/08/17) Family History: States: No Known Family Hx - Social History Hx Tobacco Use: Yes Hx Alcohol Use: No Hx Substance Use: No Review Of Systems Review Of Systems: ROS cannot be obtained secondary to pt's inabilty to answer questions. Physical Exam - Physical Exam Appears: In Acute Distress (in moderate respiratory distress), Other (awake but drowsy appearing) Head: Normacephalic Oral Mucosa: Moist Cardiovascular: Rhythm Regular Respiratory: Accessory Muscle Use (moderate), Rales (diffuse B/L), Rhonchi ( diffuse B/L), No Wheezing Gastrointestinal/Abdominal: Normal Exam, Bowel Sounds, Soft, No Tenderness Extremity: Pedal Edema (+1 pitting edema B/L LEs), No Calf Tenderness Pulses: Left Dorsalis Pedis: Normal, Right Dorsalis Pedis: Normal Neurological/Psych: Other (awake but drowsy appearing) ED Course And Treatment - Laboratory Results Result Diagrams: 05/04/17 07:06 05/04/17 07:06 ECG: Interpreted By Me, Viewed By Me (sinus rhythm 94 bpm, left axis deviation, PACs, T wave inversions I, II, aVL, V2, no acute ST changes) ECG Interpretation: Abnormal O2 Sat by Pulse Oximetry: 100 (Bipap) Pulse Ox Interpretation: Normal Progress Note: Bipap ordered emergently. Blood work, CXR, EKG, UA ordered and reviewed. Patient given MN tylenol for fever, small IV NS bolus (250ml), and broad spectrum antibiotics for HCA pneumonia. Code sepsis called - large IV bolus avoided due to rales/fluid overload. 3:05pm- Patient's sister, Ermelinda Car, called ER and confirms DNR/DNI status. She is aware of patient's condition. Reevaluation Time: 14:00 Reassessment Condition: Improved (Patient more awake and alert, BP improved (90s /50s).) - Physician Consult Information Physician Contacted: Michael Stanley Outcome Of Conversation: Discussed patient with PMD, he agrees with admission for pneumonia, chf, dyspnea, elevated troponin, fever. Critical Care Time - Critical Care Note Total Time (in mins): 45 Documented critical care: time excludes all time spent performing seperately billable procedures. Disposition - Disposition Disposition: HOSPITALIZED Disposition Time: 14:18 Condition: GUARDED - Clinical Impression Clinical Impression: Pneumonia, CHF (congestive heart failure), Dyspnea, Elevated troponin, Fever, Sepsis Decision To Admit - Pt Status Changed To: Hospital Disposition Of: Inpatient - Admit Certification Admit to Inpatient:: After my assessment, the patient will require hospitalization for at least two midnights. This is because of the severity of symptoms shown, intensity of services needed, and/or the medical risk in this patient being treated as an outpatient. - InPatient: Physician Admission Certification: I certify that this patient requires 2 or more midnights of care for the following reason:: see notes - . Bed Request Type: Telemetry Admitting Physician: Michael Stanley Patient Diagnosis: Pneumonia, CHF (congestive heart failure), Dyspnea, Elevated troponin, Fever, Sepsis
[2017-05-03 12:49] LABS: ARTERIAL BLOOD GAS MODE BiPAP; DRAW SITE LB
--- NOTE | 2017-05-03 13:15 | RAD ---
PROCEDURE: CHEST RADIOGRAPH, 1 VIEW HISTORY: SOB COMPARISON: Comparison chest 04/16/2017 FINDINGS: No change right IJ MediPort with tip in the SVC. LUNGS: Bilateral mid to lower lobe infiltrates again noted. The central pulmonary vasculature is also slightly increased however this is likely due to poor inspiration with low lung volumes. Persistent elevation right hemidiaphragm. PLEURA: No pneumothorax or pleural fluid seen. CARDIOVASCULAR: Sternotomy wires again noted. Heart remains enlarged OSSEOUS STRUCTURES: ORIF hardware proximal right humerus again seen unchanged. VISUALIZED UPPER ABDOMEN: Normal. OTHER FINDINGS: None. IMPRESSION: Patchy bilateral mid to lower lobe infiltrates. Cardiomegaly.
[2017-05-03] MEDS ORDERED: Cefepime 1 GM in Sodium Chloride 0.9% 50 ML IVPB STA (13:18)
[2017-05-03] MEDS ORDERED: Vancomycin 1 GM 1 GM/250 ML BAG IV ONE (13:18)
[2017-05-03] MEDS ORDERED: Ciprofloxacin 400mg/200ml D5W 400 MG/200 ML BAG IV STA ×2 (13:20→13:28)
[2017-05-03] MEDS ORDERED: Sodium Chloride 0.9% 250 ML IV ONE ×4 (13:27→15:40)
[2017-05-03] MEDS ORDERED: Vancomycin 1 GM 1 GM/250 ML BAG IV STA (13:29)
[2017-05-03] MEDS ORDERED: Ciprofloxacin 400mg/200ml D5W 400 MG/200 ML BAG IV ONE (13:30)
[2017-05-03 13:38] LABS: BASO % 0.2 % (0.0-2.0); EOS # 0.1 K/uL (0.0-0.7); EOS % 0.3 % (0.0-4.0); LYMPH # 0.7 K/uL (1.0-4.3); LYMPH % 3.5 % (20.0-40.0); MEAN CELL VOLUME 87.2 fL (80.0-94.0); MEAN CORPUSCULAR HEMOGLOBIN 27.3 pg (27.0-31.0); MEAN CORPUSCULAR HGB CONC 31.3 g/dL (33.0-37.0); MEAN PLATELET VOLUME 7.2 fL (7.2-11.7); MONO # 0.7 K/uL (0.0-0.8); MONO % 3.9 % (0.0-10.0); PLATELET COUNT 124 K/uL (130-400); RED CELL DISTRIBUTION WIDTH 22.7 % (11.5-14.5); WHITE BLOOD COUNT 18.9 K/uL (4.8-10.8)
[2017-05-03 13:46] LABS: INR 2.2
[2017-05-03 13:47] LABS: RBC URINE 12 /hpf (0-3); URINE BACTERIA FEW (<OCC); URINE BILIRUBIN NEGATIVE (NEGATIVE); URINE BLOOD 3+ (NEGATIVE); URINE COLOR Amber (YELLOW); URINE GLUCOSE (UA) 2+ mg/dL (Normal); URINE KETONE NEGATIVE (NEGATIVE); URINE LEUKOCYTE ESTERASE 3+ Leu/uL (Negative); URINE PROTEIN 2+ mg/dL (NEGATIVE); URINE UROBILINOGEN NORMAL mg/dL (0.2-1.0); WBC URINE 16 /hpf (0-5)
[2017-05-03 13:48] LABS: POTASSIUM 4.3 mmol/L (3.6-5.2)
[2017-05-03 13:50] LABS: ALB/GLOB RATIO 0.8 (1.0-2.1); BILIRUBIN,TOTAL 0.6 mg/dL (0.2-1.3); CALCIUM 7.2 mg/dl (8.6-10.4); TOTAL PROTEIN 6.5 g/dL (6.3-8.3)
[2017-05-03] MEDS ORDERED: Ciprofloxacin 400mg/200ml D5W 400 MG/200 ML BAG IVPB ONE (13:53)
[2017-05-03 14:24] LABS: NEUTROPHIL 78 % (50-75); TOTAL CELLS COUNTED 100
[2017-05-03 14:26] LABS: TROPONIN I 0.16 ng/mL (0.00-0.120)
[2017-05-03] MEDS ORDERED: Cefepime IV 1 gm in Dextrose 1 GM/50 ML BAG IVPB ONE (16:00)
[2017-05-03] MEDS: MethylPREDNISolone 40 mg Vial IVP SCH ×3 (19:22→23:45)
[2017-05-03] MEDS: Albuterol-Ipratrop 3 mg / 0.5 (3 ml) UD INH SCH (19:27)
[2017-05-03] MEDS ORDERED: Dextrose 50% SYRINGE Inj (50 ml) ONE (21:43)
[2017-05-03] MEDS: Meropenem 500 MG in Sodium Chloride 0.9% 100 ML IVPB SCH (21:51)
[2017-05-03] MEDS: (Novolin R) Insulin Human Regular 100 units/ml vial SC SCH (22:26)
[2017-05-04] MEDS ORDERED: Piperacill/Tazo 3.375gm in Dex 3.375 GM/50 ML BAG IVPB SCH
[2017-05-04] MEDS: Albuterol-Ipratrop 3 mg / 0.5 (3 ml) UD INH SCH ×4 (01:20→19:57)
[2017-05-04] MEDS: Meropenem 500 MG in Sodium Chloride 0.9% 100 ML IVPB SCH ×3 (05:16→21:31)
[2017-05-04] MEDS: MethylPREDNISolone 40 mg Vial IVP SCH ×3 (05:16→18:03)
[2017-05-04 07:18] LABS: BASO % 0.1 % (0.0-2.0); EOS % 0.3 % (0.0-4.0); HEMATOCRIT 24.3 % (35.0-51.0); LYMPH # 0.3 K/uL (1.0-4.3); LYMPH % 3.5 % (20.0-40.0); MEAN CORPUSCULAR HEMOGLOBIN 27.8 pg (27.0-31.0); MEAN PLATELET VOLUME 7.2 fL (7.2-11.7); MONO # 0.3 K/uL (0.0-0.8); MONO % 3.5 % (0.0-10.0); RED CELL DISTRIBUTION WIDTH 22.1 % (11.5-14.5)
[2017-05-04 07:38] LABS: PLATELET COUNT 93 K/uL (130-400); WHITE BLOOD COUNT 7.6 K/uL (4.8-10.8)
[2017-05-04 07:55] LABS: POTASSIUM 4.1 mmol/L (3.6-5.2)
[2017-05-04 07:57] LABS: ALB/GLOB RATIO 0.8 (1.0-2.1); BILIRUBIN,TOTAL 0.5 mg/dL (0.2-1.3); TOTAL PROTEIN 5.6 g/dL (6.3-8.3)
[2017-05-04 07:58] LABS: CALCIUM 7.1 mg/dl (8.6-10.4)
[2017-05-04] MEDS: (Novolin R) Insulin Human Regular 100 units/ml vial SC SCH ×4 (08:30→22:08)
[2017-05-04 09:43] LABS: EOSINOPHIL 1 % (0-4); NEUTROPHIL 44 % (50-75); TOTAL CELLS COUNTED 100
[2017-05-04 09:49] LABS: LARGE PLATELETS PRESENT
[2017-05-04] MEDS ORDERED: Dextrose 5%/0.9% NS 1,000 ML IV ONE (11:31)
[2017-05-05] MEDS: MethylPREDNISolone 40 mg Vial IVP SCH ×5 (00:31→23:53)
[2017-05-05] MEDS: Albuterol-Ipratrop 3 mg / 0.5 (3 ml) UD INH SCH ×4 (01:09→19:57)
[2017-05-05] MEDS: Meropenem 500 MG in Sodium Chloride 0.9% 100 ML IVPB SCH ×3 (05:04→21:00)
[2017-05-05] MEDS: (Novolin R) Insulin Human Regular 100 units/ml vial SC SCH ×4 (07:34→22:00)
[2017-05-05] MEDS: Dextrose 5%/0.45% NS 1,000 ML IV SCH ×2 (09:21→20:00)
--- NOTE | 2017-05-05 16:21 | CP.PCM.CON ---
History of Present Illness - History of Present Illness History of Present Illness: Patient [place] from [place] for evaluation of SOB and lethargy. Patient has h/o COPD, HIV, DM, HTN. History limited due to clinical condition. As per [place] patient is DNR/DNI. on bipap for pneumonia septic weak confused - Medical History PMH: Arthritis, Asthma, CHF, COPD, Diabetes, Emphysema, Fractures (left lower leg, wrist , hand), HIV, Hyperlipidemia - [facility] Procedures ASSISTANCE WITH RESPIRATORY VENTILATION, >96 HRS, CPAP (03/08/17) NEBULIZER THERAPY (11/15/13) TRANSFUSE NONAUT PLATELETS IN PERIPH VEIN, PERC (03/08/17) TRANSFUSE NONAUT RED BLOOD CELLS IN PERIPH VEIN, PERC (03/08/17) Family History: States: No Known Family Hx - Social History Hx Tobacco Use: Yes Review of Systems - Review of Systems Systems not reviewed;Unavailable: Altered Mental Status - Constitutional Constitutional: As Per HPI - EENT Eyes: absent: As Per HPI, Blind Spots, Blurred Vision, Change in Vision, Decreased Night Vision, Diplopia, Discharge, Dry Eye, Exophthalmos, Floaters, Irritation, Itchy Eyes, Loss of Peripheral Vision, Pain, Photophobia, Requires Corrective Lenses, Sees Flashes, Spots in Vision, Tunnel Vision, Other Visual Disturbances, Loss of Vision, Other Ears: absent: As Per HPI, Decreased Hearing, Ear Discharge, Ear Pain, Tinnitus, Abnormal Hearing, Disequilibrium, Dizziness, Other Nose/Mouth/Throat: absent: As Per HPI, Epistaxis, Nasal Congestion, Nasal Discharge, Nasal Obstruction, Nasal Trauma, Nose Pain, Post Nasal Drip, Sinus Pain, Sinus Pressure, Bleeding Gums, Change in Voice, Dental Pain, Dry Mouth, Dysphagia, Halitosis, Hoarsness, Lip Swelling, Mouth Lesions, Mouth Pain, Odynophagia, Sore Throat, Throat Swelling, Tongue Swelling, Facial Pain, Neck Pain, Neck Mass, Other - Cardiovascular Cardiovascular: As Per HPI - Respiratory Respiratory: As Per HPI - Gastrointestinal Gastrointestinal: absent: As Per HPI, Abdominal Pain, Belching, Bloating, Change in Bowel Habits, Change in Stool Character, Coffee Ground Emesis, Constipation, Cramping, Diarrhea, Dyspepsia, Dysphagia, Early Satiety, Excessive Flatus, Fecal Incontinence, Heartburn, Hematemesis, Hematochezia, Loose Stools, Melena, Nausea, Odynophagia, Temesmus, Vomiting, Other - Genitourinary Genitourinary: absent: As Per HPI, Change in Urinary Stream, Difficulty Urinating, Dysuria, Flank Pain, Hematuria, Pyuria, Nocturia, Urinary Incontinence, Urinary Frequency, Urinary Hesitance, Urinary Urgency, Voiding Freq/Small Amts, Freq UTI, Hx Renal/Bladder Calculi, Hx /Renal Surgery, Bladder Distension, Other - Musculoskeletal Musculoskeletal: absent: As Per HPI, Abnormal Gait, Arthralgias, Atrophy, Back Pain, Deformity, Joint Swelling, Limited Range of Motion, Loss of Height, Muscle Cramps, Muscle Weakness, Myalgias, Neck Pain, Numbness, Radiating Pain into Limb, Stiffness, Tingling, Other - Integumentary Integumentary: As Per HPI - Neurological Neurological: As Per HPI - Psychiatric Psychiatric: absent: As Per HPI, Abnormal Sleep Pattern, Anhedonia, Anxiety, Auditory Hallucinations, Behavioral Changes, Change in Appetite, Change in Libido, Confusion, Depression, Difficulty Concentrating, Hallucinations, Homicidal Ideation, Hopelessness, Irritability, Memory Loss, Mood Swings, Panic Attacks, Paranoia, Suicidal Ideation, Visual Hallucinations, Tactile Hallucinations, Other - Endocrine Endocrine: absent: As Per HPI, Change in Body Appearance, Change in Libido, Cold Intolorance, Deepening of Voice, Excessive Sweating, Fatigue, Flushing, Heat Intolorance, Increase in Ring/Shoe/Hat Size, Palpitations, Polydipsia, Polyphagia, Polyuria, Other - Hematologic/Lymphatic Hematologic: absent: As Per HPI, Easy Bleeding, Easy Bruising, Lymphadenopathy, Other Past Patient History - Past Medical History & Family History Past Medical History?: Yes - Past Social History Smoking Status: Former Smoker - CARDIAC Hx Congestive Heart Failure: Yes - PULMONARY Hx Asthma: Yes Hx Chronic Obstructive Pulmonary Disease (COPD): Yes Hx Emphysema: Yes - NEUROLOGICAL Hx Neurological Disorder: No - HEENT Hx HEENT Problems: No - RENAL Hx Chronic Kidney Disease: No - ENDOCRINE/METABOLIC Hx Endocrine Disorders: Yes Hx Diabetes Mellitus Type 2: Yes - HEMATOLOGICAL/ONCOLOGICAL Hx Human Immunodeficiency Virus (HIV): Yes - INTEGUMENTARY Hx Dermatological Problems: Yes Other/Comment: skin tear right upper arm - MUSCULOSKELETAL/RHEUMATOLOGICAL Hx Arthritis: Yes Hx Fractures: Yes (left lower leg, wrist , hand) - GASTROINTESTINAL Hx Gastrointestinal Disorders: No - GENITOURINARY/GYNECOLOGICAL Hx Genitourinary Disorders: No - PSYCHIATRIC Hx Substance Use: No - SURGICAL HISTORY Hx Surgeries: Yes Hx Orthopedic Surgery: Yes (right shoulder torn rotator cuff 3 yr ago) - ANESTHESIA Hx Anesthesia: Yes Hx Anesthesia Reactions: No Hx Malignant Hyperthermia: No Meds Allergies/Adverse Reactions: Allergies Allergy/AdvReac Type Severity Reaction Status Date / Time clopidogrel [From Plavix] Allergy Verified 05/03/17 12:12 seafood Allergy Uncoded 05/03/17 12:12 - Medications Medications: Current Medications Acetaminophen (Tylenol 650 Mg Supp) 650 mg IN Q6 PRN PRN Reason: Temperature > 100.4 F Albuterol/Ipratropium (Duoneb 3 Mg/0.5 Mg (3 Ml) Ud) 3 ml INH RQ6 [facility] Last Admin: 05/05/17 13:04 Dose: 3 ml Meropenem 500 mg/ Sodium (Chloride) 100 mls @ 100 mls/hr IVPB Q8 [facility] Last Admin: 05/05/17 13:24 Dose: 100 mls/hr Dextrose/Sodium Chloride (Dextrose 5%/0.45% Ns 1000 Ml) 1,000 mls @ 80 mls/hr IV .[id number] [facility] Last Admin: 05/05/17 09:21 Dose: 80 mls/hr Insulin Human Regular (Novolin R) 0 unit SC ACHS [facility] PRN Reason: Protocol Last Admin: 05/05/17 12:32 Dose: 1 unit Methylprednisolone (Solu-Medrol) 40 mg IVP Q6 [facility] Last Admin: 05/05/17 13:00 Dose: 40 mg Pneumococcal Polyvalent Vaccine (Pneumovax 23 Vaccine) 0.5 ml IM .ONCE ONE Stop: 05/06/17 10:01 Physical Exam - Constitutional Appears: Toxic, Confused, Cachectic, Chronically Ill - Head Exam Head Exam: ATRAUMATIC, NORMAL INSPECTION, NORMOCEPHALIC - Eye Exam Eye Exam: EOMI, PERRL. absent: Scleral icterus - ENT Exam ENT Exam: Mucous Membranes Dry, Normal External Ear Exam - Neck Exam Neck exam: Negative for: Lymphadenopathy - Respiratory Exam Respiratory Exam: Decreased Breath Sounds, Rhonchi - Cardiovascular Exam Cardiovascular Exam: REGULAR RHYTHM, +S1, +S2 - GI/Abdominal Exam GI & Abdominal Exam: Diminished Bowel Sounds, Soft. absent: Tenderness - Rectal Exam Rectal Exam: Deferred - Exam Exam: NORMAL INSPECTION - Extremities Exam Extremities exam: Positive for: pedal edema, pedal pulses present. Negative for : calf tenderness, tenderness - Back Exam Back exam: absent: CVA tenderness (L), CVA tenderness (R) - Neurological Exam Neurological exam: Alert, CN II-XII Intact, Oriented x3, Reflexes Normal - Psychiatric Exam Psychiatric exam: Depressed - Skin Skin Exam: Dry, Intact Results - Vital Signs Recent Vital Signs: Last Vital Signs Temp 97.6 F 05/05/17 15:32 Pulse 78 05/05/17 15:32 Resp 16 05/05/17 15:32 BP 99/56 L 05/05/17 15:32 Pulse Ox 98 05/05/17 15:32 - Labs Result Diagrams: 05/04/17 07:06 05/04/17 07:06 Labs: Laboratory Results - last 24 hr 05/04/17 05/04/17 05/05/17 17:10 21:03 06:51 POC Glucose (mg/dL) 99 156 H 149 H Blood Type Antibody Screen 05/05/17 05/05/17 07:52 11:53 POC Glucose (mg/dL) 184 H Blood Type O POSITIVE Antibody Screen Negative Assessment & Plan (1) CHF (congestive heart failure) Status: Acute (2) Dyspnea Status: Acute (3) Elevated troponin Status: Acute (4) Fever Status: Acute (5) Pneumonia Status: Acute (6) Sepsis Status: Acute (7) SUZANNE (acute kidney injury) Status: Acute (8) Anasarca Status: Acute (9) HIV antibody positive Status: Acute (10) Hypokalemia Status: Acute (11) Lung cancer Status: Acute (12) CARMELA (obstructive sleep apnea) Status: Acute (13) Obstructive uropathy Status: Acute (14) Pancytopenia Status: Acute (15) Prophylactic measure Status: Acute (16) Thrombocytopenia Status: Acute (17) UTI (urinary tract infection) Status: Acute
[2017-05-06] MEDS: Albuterol-Ipratrop 3 mg / 0.5 (3 ml) UD INH SCH ×4 (01:36→19:43)
--- NOTE | 2017-05-06 02:18 | CP.PCM.CON ---
History of Present Illness - History of Present Illness History of Present Illness: 66 year old male with a history of COPD, HIV, aortic stenosis, chronic anemia, ? lung cancer (pt denies), admitted with AMS and shortness of breath, with anemia. The patient is well known to me from his prior admission. At the time , he had iron deficiency anemia of thrombocytopenia related to sepsis. He currently reports to feeling weak. His breathing improves with nebulizer treatments and bipap. Past medical history: Above Past surgical history: Shoulder surgery post fall Family history: Denies hematologic and oncologic problems Social history: Smokes 1ppd, denies alcohol, and illicit drug use. Alergies: Plavix Review of systems: All remaining review of systems including HEENT, cardiovascular, respiratory, gastrointestinal, genitourinary, musculoskeletal, dermatologic, neurologic, and psychiatric are negative unless mentioned in the HPI. Past Patient History - Past Medical History & Family History Past Medical History?: Yes - Past Social History Smoking Status: Former Smoker - CARDIAC Hx Congestive Heart Failure: Yes - PULMONARY Hx Asthma: Yes Hx Chronic Obstructive Pulmonary Disease (COPD): Yes Hx Emphysema: Yes - NEUROLOGICAL Hx Neurological Disorder: No - HEENT Hx HEENT Problems: No - RENAL Hx Chronic Kidney Disease: No - ENDOCRINE/METABOLIC Hx Endocrine Disorders: Yes Hx Diabetes Mellitus Type 2: Yes - HEMATOLOGICAL/ONCOLOGICAL Hx Human Immunodeficiency Virus (HIV): Yes - INTEGUMENTARY Hx Dermatological Problems: Yes Other/Comment: skin tear right upper arm - MUSCULOSKELETAL/RHEUMATOLOGICAL Hx Arthritis: Yes Hx Fractures: Yes (left lower leg, wrist , hand) - GASTROINTESTINAL Hx Gastrointestinal Disorders: No - GENITOURINARY/GYNECOLOGICAL Hx Genitourinary Disorders: No - PSYCHIATRIC Hx Substance Use: No - SURGICAL HISTORY Hx Surgeries: Yes Hx Orthopedic Surgery: Yes (right shoulder torn rotator cuff 3 yr ago) - ANESTHESIA Hx Anesthesia: Yes Hx Anesthesia Reactions: No Hx Malignant Hyperthermia: No Meds Allergies/Adverse Reactions: Allergies Allergy/AdvReac Type Severity Reaction Status Date / Time clopidogrel [From Plavix] Allergy Verified 05/03/17 12:12 seafood Allergy Uncoded 05/03/17 12:12 - Medications Medications: Current Medications Acetaminophen (Tylenol 650 Mg Supp) 650 mg [place] Q6 PRN PRN Reason: Temperature > 100.4 F Albuterol/Ipratropium (Duoneb 3 Mg/0.5 Mg (3 Ml) Ud) 3 ml INH RQ6 [facility] Last Admin: 05/06/17 01:36 Dose: 3 ml Meropenem 500 mg/ Sodium (Chloride) 100 mls @ 100 mls/hr IVPB Q8 [facility] Last Admin: 05/05/17 21:00 Dose: 100 mls/hr Dextrose/Sodium Chloride (Dextrose 5%/0.45% Ns 1000 Ml) 1,000 mls @ 80 mls/hr IV .[id number] [facility] Last Admin: 05/05/17 20:00 Dose: Not Given Insulin Human Regular (Novolin R) 0 unit SC ACHS [facility] PRN Reason: Protocol Last Admin: 05/05/17 22:00 Dose: Not Given Methylprednisolone (Solu-Medrol) 40 mg IVP Q6 [facility] Last Admin: 05/05/17 23:53 Dose: 40 mg Pneumococcal Polyvalent Vaccine (Pneumovax 23 Vaccine) 0.5 ml IM .ONCE ONE Stop: 05/06/17 10:01 Physical Exam - Head Exam Head Exam: ATRAUMATIC - Eye Exam Eye Exam: Normal appearance - ENT Exam ENT Exam: Mucous Membranes Dry - Respiratory Exam Respiratory Exam: Decreased Breath Sounds - Cardiovascular Exam Cardiovascular Exam: +S1, +S2 - GI/Abdominal Exam GI & Abdominal Exam: Normal Bowel Sounds - Extremities Exam Extremities exam: Positive for: pedal edema Results - Vital Signs Recent Vital Signs: Last Vital Signs Temp 97.7 F 05/05/17 23:45 Pulse 83 05/05/17 23:45 Resp 20 05/05/17 23:45 BP 120/73 05/05/17 23:45 Pulse Ox 97 05/05/17 23:45 - Labs Result Diagrams: 05/07/17 11:59 05/07/17 11:59 Labs: Laboratory Results - last 24 hr 05/05/17 05/05/17 05/05/17 06:51 07:52 11:53 POC Glucose (mg/dL) 149 H 184 H Blood Type O POSITIVE Antibody Screen Negative 05/05/17 05/05/17 17:15 21:03 POC Glucose (mg/dL) 101 116 H Blood Type Antibody Screen Assessment & Plan (1) Anemia Assessment and Plan: prior iron deficiency; will repeat ferritin transfusion support PRN Status: Acute (2) Thrombocytopenia Assessment and Plan: prior related to sepsis will cont. to monitor Status: Acute (3) Coagulopathy Assessment and Plan: rule out DIC may have nutritional component Thank you for this interesting consult. Status: Acute
[2017-05-06] MEDS: Dextrose 5%/0.45% NS 1,000 ML IV SCH ×3 (04:38→22:01)
[2017-05-06] MEDS: Meropenem 500 MG in Sodium Chloride 0.9% 100 ML IVPB SCH ×3 (05:10→22:01)
[2017-05-06] MEDS: MethylPREDNISolone 40 mg Vial IVP SCH ×3 (05:48→19:19)
--- NOTE | 2017-05-06 07:50 | HP ---
HISTORY OF PRESENT ILLNESS: This is a 66-year-old male with history of COPD, lung cancer, anemia, HIV disease, renal insufficiency admitted to the hospital complaining of weakness, fatigue, tiredness and shortness of breath. The patient has pneumonia and advised admission to the hospital. The patient is DNR/DNI. PHYSICAL EXAMINATION: GENERAL: The patient is currently awake and oriented, on BiPAP. VITAL SIGNS: Blood pressure 90/60, pulse is 90. HEENT: Within normal limits. NECK: Supple. CHEST: Symmetrical. Good air entry. HEART: Regular. ABDOMEN: Soft. EXTREMITIES: 2+ edema. IMPRESSION: The patient has pneumonia, chronic obstructive pulmonary disease, human immunodeficiency virus, lung cancer. Patient bedrest, antibiotics, . Michael Stanley MD
[2017-05-06] MEDS: (Novolin R) Insulin Human Regular 100 units/ml vial SC SCH ×4 (08:08→23:14)
--- NOTE | 2017-05-06 09:25 | CP.PCM.PN ---
Subjective - Date & Time of Evaluation Date of Evaluation: 05/06/17 Time of Evaluation: 09:19 - Subjective Subjective: PGY-[address] Stanley's service: Pt seen and examined at bedside. Nursing reports decreasing urinary output over the weekend. Pt found resting in bed on bipap. History limited due to pt condition. Objective - Vital Signs/Intake and Output Vital Signs (last 24 hours): Temp Pulse Resp BP Pulse Ox 97.7 F 88 18 99/54 L 94 L 05/06/17 07:20 05/06/17 07:28 05/06/17 07:20 05/06/17 07:20 05/06/17 07:20 Intake and Output: 05/06/17 05/06/17 06:59 18:59 Intake Total 600 Output Total 75 Balance 525 - Medications Medications: Current Medications Acetaminophen (Tylenol 650 Mg Supp) 650 mg [place] Q6 PRN PRN Reason: Temperature > 100.4 F Albuterol/Ipratropium (Duoneb 3 Mg/0.5 Mg (3 Ml) Ud) 3 ml INH RQ6 [facility] Last Admin: 05/06/17 07:27 Dose: 3 ml Meropenem 500 mg/ Sodium (Chloride) 100 mls @ 100 mls/hr IVPB Q8 [facility] Last Admin: 05/06/17 05:10 Dose: 100 mls/hr Dextrose/Sodium Chloride (Dextrose 5%/0.45% Ns 1000 Ml) 1,000 mls @ 80 mls/hr IV .[id number] [facility] Last Admin: 05/06/17 04:38 Dose: 80 mls/hr Insulin Human Regular (Novolin R) 0 unit SC ACHS [facility] PRN Reason: Protocol Last Admin: 05/06/17 08:08 Dose: Not Given Methylprednisolone (Solu-Medrol) 40 mg IVP Q6 [facility] Last Admin: 05/06/17 05:48 Dose: 40 mg Pneumococcal Polyvalent Vaccine (Pneumovax 23 Vaccine) 0.5 ml IM .ONCE ONE Stop: 05/06/17 10:01 - Labs Labs: 05/04/17 07:06 05/04/17 07:06 PT 25.4 SECONDS (9.7-12.2) H 05/03/17 13:35 INR 2.2 05/03/17 13:35 APTT 40 SECONDS (21-34) H 05/03/17 13:35 - Constitutional Appears: Toxic, Confused, Cachectic, Chronically Ill - Head Exam Head Exam: ATRAUMATIC, NORMAL INSPECTION, NORMOCEPHALIC - Eye Exam Eye Exam: EOMI, PERRL. absent: Scleral icterus - ENT Exam ENT Exam: Mucous Membranes Dry - Neck Exam Neck Exam: absent: Lymphadenopathy - Respiratory Exam Respiratory Exam: Decreased Breath Sounds, Rhonchi - Cardiovascular Exam Cardiovascular Exam: REGULAR RHYTHM, +S1, +S2 - GI/Abdominal Exam GI & Abdominal Exam: Soft, Diminished Bowel Sounds. absent: Tenderness - Extremities Exam Extremities Exam: Pedal Edema Additional comments: Pulses present on palpation - Neurological Exam Neurological Exam: Alert. absent: Awake, Oriented x3 - Psychiatric Exam Psychiatric exam: Depressed - Skin Skin Exam: Normal Color, Warm Assessment and Plan - Assessment and Plan (Free Text) Plan: Sepsis Admit to [facility] Criteria no longer met, but on admission (Temp, Tachy, WBC) Secondary to pneumonia or UTI Blood culture (05/03/17): Gram positive cocci- VRE x 1 (anaerobic positive only) ; no growth x 1 (aerobic bottle) Positive UA Urine Cx: Yeast Dr. La, help appreciated Contact Isolation for VRE Merrem 500mg IV Q8H [facility] Vancomycin ONCE Diflucan 100mg IV Q24H Zyvox 600mg IV Q12H Tylenol 650mg [place] Q6H PRN Pneumonia CXR (05/03/17): Patchy b/l mid to lower lobe infiltrates. Cardiomegaly. (see full report) Dr. La, help appreciated Merrem 500mg IV Q8H [facility] -Vancomycin ONCE Zyvox 600mg IV Q12H Solumedrol 40mg IV Q6H Duoneb Q6H [facility] Bipap PRN CHF, ejection fraction preserved ECHO (02/26/17): EF 62%, mild tricuspid regurgitation, moderate pulm HTN, Mitral annular calcification, Right atrium dilated, Left atrium borderline dilated Hold home lasix BNP 24,000 on admission Anemia 7.8 on admission labs (05/04/17) - f/u AM labs HIV Pt on home Truvada 200/300mg, Raltegravir 400mg PO BID, Bactrim DS Will f/u with ID if clear to restart Type Two Diabetes Mellitus Sugars poorly controlled RISS SOB Secondary to pneumonia, history of COPD Solumedrol 40mg IV Q6H Duoneb Q6H [facility] Bipap PRN SUZANNE on CKD Dr. Domínguez, help appreciated - f/u urine lytes, renal/bladder US - recommend trial fluids IV - IV antibiotics UTI Hx of indwelling catheter, urinary retention UA (05/03/17): 3+ LE, WBC 16, few bacteria, Many yeast - f/u repeat UA Urinary culture: Yeast Dr. La, help appreciated - Fluconazole Hx of urinary retention Dr. Paula, urology, help appreciated - Indwelling silverman coude catheter from shelter - Leave in per Dr. Paula Elevated troponin On admission: Troponin 0.16, 0.1, (Downtrending) Sacral Ulcer Wound care, consulted, help appreciated - f/u reccs History of BPH Tamsulosin 0.4mg PO daily End of Life Goals Pt DNR/DNI f/u Palliative consult [facility]: [facility]DNI[facility] All medical management per Dr. Stanley
[2017-05-06] MEDS ORDERED: Pneumococcal 23-Valent Vaccine IM ONE (10:00)
--- NOTE | 2017-05-06 10:51 | CP.PCM.PN ---
Subjective - Date & Time of Evaluation Date of Evaluation: 05/06/17 Time of Evaluation: 08:00 - Subjective Subjective: blood positive for vre zyvox added Objective - Vital Signs/Intake and Output Vital Signs (last 24 hours): Temp Pulse Resp BP Pulse Ox 97.7 F 88 18 99/54 L 94 L 05/06/17 07:20 05/06/17 07:28 05/06/17 07:20 05/06/17 07:20 05/06/17 07:20 Intake and Output: 05/06/17 05/06/17 06:59 18:59 Intake Total 600 Output Total 75 Balance 525 - Medications Medications: Current Medications Acetaminophen (Tylenol 650 Mg Supp) 650 mg [place] Q6 PRN PRN Reason: Temperature > 100.4 F Albuterol/Ipratropium (Duoneb 3 Mg/0.5 Mg (3 Ml) Ud) 3 ml INH RQ6 [facility] Last Admin: 05/06/17 07:27 Dose: 3 ml Meropenem 500 mg/ Sodium (Chloride) 100 mls @ 100 mls/hr IVPB Q8 [facility] Last Admin: 05/06/17 05:10 Dose: 100 mls/hr Dextrose/Sodium Chloride (Dextrose 5%/0.45% Ns 1000 Ml) 1,000 mls @ 80 mls/hr IV .[id number] [facility] Last Admin: 05/06/17 04:38 Dose: 80 mls/hr Linezolid (Zyvox 600mg/300ml D5w) 600 mg in 300 mls @ 200 mls/hr IVPB Q12 [facility] Insulin Human Regular (Novolin R) 0 unit SC ACHS [facility] PRN Reason: Protocol Last Admin: 05/06/17 08:08 Dose: Not Given Methylprednisolone (Solu-Medrol) 40 mg IVP Q6 [facility] Last Admin: 05/06/17 05:48 Dose: 40 mg - Labs Labs: 05/04/17 07:06 05/04/17 07:06 PT 25.4 SECONDS (9.7-12.2) H 05/03/17 13:35 INR 2.2 05/03/17 13:35 APTT 40 SECONDS (21-34) H 05/03/17 13:35 - Constitutional Appears: Confused, Cachectic, Chronically Ill - Head Exam Head Exam: NORMOCEPHALIC - Eye Exam Eye Exam: absent: Scleral icterus - ENT Exam ENT Exam: Mucous Membranes Dry - Neck Exam Neck Exam: absent: Lymphadenopathy - Respiratory Exam Respiratory Exam: Decreased Breath Sounds - Cardiovascular Exam Cardiovascular Exam: REGULAR RHYTHM, +S1, +S2 - GI/Abdominal Exam GI & Abdominal Exam: Distended Assessment and Plan (1) CHF (congestive heart failure) Status: Acute (2) Dyspnea Status: Acute (3) Elevated troponin Status: Acute (4) Fever Status: Acute (5) Pneumonia Status: Acute (6) Sepsis Status: Acute (7) SUZANNE (acute kidney injury) Status: Acute (8) Anasarca Status: Acute (9) HIV antibody positive Status: Acute (10) Hypokalemia Status: Acute (11) Lung cancer Status: Acute (12) CARMELA (obstructive sleep apnea) Status: Acute (13) Obstructive uropathy Status: Acute (14) Pancytopenia Status: Acute (15) Prophylactic measure Status: Acute (16) Thrombocytopenia Status: Acute (17) UTI (urinary tract infection) Status: Acute - Assessment and Plan (Free Text) Assessment: zyvox added
[2017-05-06] MEDS: Linezolid 600 mg in D5W 300 ml 600 MG/300 ML BAG IVPB SCH ×2 (11:45→22:02)
--- NOTE | 2017-05-06 12:08 | CP.PCM.CON ---
History of Present Illness - History of Present Illness History of Present Illness: cc: uti IMP: hx of retention indwelling silverman hx of renal failure copd obesity edema of genitalia, concealed penis full note t/f Past Patient History - Past Medical History & Family History Past Medical History?: Yes - Past Social History Smoking Status: Former Smoker - CARDIAC Hx Congestive Heart Failure: Yes - PULMONARY Hx Asthma: Yes Hx Chronic Obstructive Pulmonary Disease (COPD): Yes Hx Emphysema: Yes - NEUROLOGICAL Hx Neurological Disorder: No - HEENT Hx HEENT Problems: No - RENAL Hx Chronic Kidney Disease: No - ENDOCRINE/METABOLIC Hx Endocrine Disorders: Yes Hx Diabetes Mellitus Type 2: Yes - HEMATOLOGICAL/ONCOLOGICAL Hx Human Immunodeficiency Virus (HIV): Yes - INTEGUMENTARY Hx Dermatological Problems: Yes Other/Comment: skin tear right upper arm - MUSCULOSKELETAL/RHEUMATOLOGICAL Hx Arthritis: Yes Hx Fractures: Yes (left lower leg, wrist , hand) - GASTROINTESTINAL Hx Gastrointestinal Disorders: No - GENITOURINARY/GYNECOLOGICAL Hx Genitourinary Disorders: No - PSYCHIATRIC Hx Substance Use: No - SURGICAL HISTORY Hx Surgeries: Yes Hx Orthopedic Surgery: Yes (right shoulder torn rotator cuff 3 yr ago) - ANESTHESIA Hx Anesthesia: Yes Hx Anesthesia Reactions: No Hx Malignant Hyperthermia: No Meds Allergies/Adverse Reactions: Allergies Allergy/AdvReac Type Severity Reaction Status Date / Time clopidogrel [From Plavix] Allergy Verified 05/03/17 12:12 seafood Allergy Uncoded 05/03/17 12:12 - Medications Medications: Current Medications Acetaminophen (Tylenol 650 Mg Supp) 650 mg [place] Q6 PRN PRN Reason: Temperature > 100.4 F Albuterol/Ipratropium (Duoneb 3 Mg/0.5 Mg (3 Ml) Ud) 3 ml INH RQ6 [facility] Last Admin: 05/06/17 07:27 Dose: 3 ml Meropenem 500 mg/ Sodium (Chloride) 100 mls @ 100 mls/hr IVPB Q8 [facility] Last Admin: 05/06/17 05:10 Dose: 100 mls/hr Dextrose/Sodium Chloride (Dextrose 5%/0.45% Ns 1000 Ml) 1,000 mls @ 80 mls/hr IV .[id number] [facility] Last Admin: 05/06/17 04:38 Dose: 80 mls/hr Linezolid (Zyvox 600mg/300ml D5w) 600 mg in 300 mls @ 200 mls/hr IVPB Q12H [facility] Last Admin: 05/06/17 11:45 Dose: 200 mls/hr Fluconazole (Diflucan Iv 100 Mg/50 Ml Ns) 50 mls @ 100 mls/hr IVPB Q24H [facility] Insulin Human Regular (Novolin R) 0 unit SC ACHS [facility] PRN Reason: Protocol Last Admin: 05/06/17 12:05 Dose: 2 unit Methylprednisolone (Solu-Medrol) 40 mg IVP Q6 [facility] Last Admin: 05/06/17 11:50 Dose: 40 mg Results - Vital Signs Recent Vital Signs: Last Vital Signs Temp 97.7 F 05/06/17 07:20 Pulse 88 05/06/17 07:28 Resp 18 05/06/17 07:20 BP 99/54 L 05/06/17 07:20 Pulse Ox 94 L 05/06/17 07:20 - Labs Result Diagrams: 05/04/17 07:06 05/04/17 07:06 Labs: Laboratory Results - last 24 hr 05/05/17 05/05/17 05/06/17 17:15 21:03 06:53 POC Glucose (mg/dL) 101 116 H Random Vancomycin 25.07 05/06/17 05/06/17 07:01 11:56 POC Glucose (mg/dL) 130 H 206 H Random Vancomycin
--- NOTE | 2017-05-06 13:32 | CP.PCM.CON ---
History of Present Illness - History of Present Illness History of Present Illness: Patient [place] from [place] for evaluation of SOB and lethargy. Patient has h/o COPD, HIV, DM, HTN. History limited due to clinical condition. As per [facility] patient is DNR/DNI. on bipap for pneumonia septic weak confused - Medical History PMH: Arthritis, Asthma, CHF, COPD, Diabetes, Emphysema, Fractures (left lower leg, wrist , hand), HIV, Hyperlipidemia - [facility] Procedures ASSISTANCE WITH RESPIRATORY VENTILATION, >96 HRS, CPAP (03/08/17) NEBULIZER THERAPY (11/15/13) TRANSFUSE NONAUT PLATELETS IN PERIPH VEIN, PERC (03/08/17) TRANSFUSE NONAUT RED BLOOD CELLS IN PERIPH VEIN, PERC (03/08/17) Admitted with worsening AMS Has VRE bacteremia and progressive SUZANNE Cannot obtain ROS due do AMS Recent prior admission also noted for SUZANNE Review of Systems - Review of Systems Systems not reviewed;Unavailable: Altered Mental Status Past Patient History - Past Medical History & Family History Past Medical History?: Yes Past Family History: Reviewed and not pertinent - Past Social History Smoking Status: Former Smoker Alcohol: None - CARDIAC Hx Congestive Heart Failure: Yes - PULMONARY Hx Asthma: Yes Hx Chronic Obstructive Pulmonary Disease (COPD): Yes Hx Emphysema: Yes - NEUROLOGICAL Hx Neurological Disorder: No - HEENT Hx HEENT Problems: No - RENAL Hx Chronic Kidney Disease: No - ENDOCRINE/METABOLIC Hx Endocrine Disorders: Yes Hx Diabetes Mellitus Type 2: Yes - HEMATOLOGICAL/ONCOLOGICAL Hx Human Immunodeficiency Virus (HIV): Yes - INTEGUMENTARY Hx Dermatological Problems: Yes Other/Comment: skin tear right upper arm - MUSCULOSKELETAL/RHEUMATOLOGICAL Hx Arthritis: Yes Hx Fractures: Yes (left lower leg, wrist , hand) - GASTROINTESTINAL Hx Gastrointestinal Disorders: No - GENITOURINARY/GYNECOLOGICAL Hx Genitourinary Disorders: No - PSYCHIATRIC Hx Substance Use: No - SURGICAL HISTORY Hx Surgeries: Yes Hx Orthopedic Surgery: Yes (right shoulder torn rotator cuff 3 yr ago) - ANESTHESIA Hx Anesthesia: Yes Hx Anesthesia Reactions: No Hx Malignant Hyperthermia: No Meds Allergies/Adverse Reactions: Allergies Allergy/AdvReac Type Severity Reaction Status Date / Time clopidogrel [From Plavix] Allergy Verified 05/03/17 12:12 seafood Allergy Uncoded 05/03/17 12:12 - Medications Medications: Current Medications Acetaminophen (Tylenol 650 Mg Supp) 650 mg SD Q6 PRN PRN Reason: Temperature > 100.4 F Albuterol/Ipratropium (Duoneb 3 Mg/0.5 Mg (3 Ml) Ud) 3 ml INH RQ6 [facility] Last Admin: 05/06/17 13:23 Dose: 3 ml Meropenem 500 mg/ Sodium (Chloride) 100 mls @ 100 mls/hr IVPB Q8 [facility] Last Admin: 05/06/17 05:10 Dose: 100 mls/hr Dextrose/Sodium Chloride (Dextrose 5%/0.45% Ns 1000 Ml) 1,000 mls @ 80 mls/hr IV .[id number] [facility] Last Admin: 05/06/17 04:38 Dose: 80 mls/hr Linezolid (Zyvox 600mg/300ml D5w) 600 mg in 300 mls @ 200 mls/hr IVPB Q12H [facility] Last Admin: 05/06/17 11:45 Dose: 200 mls/hr Fluconazole (Diflucan Iv 100 Mg/50 Ml Ns) 50 mls @ 100 mls/hr IVPB Q24H [facility] Insulin Human Regular (Novolin R) 0 unit SC ACHS [facility] PRN Reason: Protocol Last Admin: 05/06/17 12:05 Dose: 2 unit Methylprednisolone (Solu-Medrol) 40 mg IVP Q6 [facility] Last Admin: 05/06/17 11:50 Dose: 40 mg Physical Exam - Constitutional Appears: Confused, Chronically Ill - Head Exam Head Exam: ATRAUMATIC, NORMAL INSPECTION - Eye Exam Eye Exam: Normal appearance - Neck Exam Neck exam: Positive for: Normal Inspection. Negative for: Tenderness - Respiratory Exam Respiratory Exam: Rhonchi, Respiratory Distress - Cardiovascular Exam Cardiovascular Exam: REGULAR RHYTHM, +S1 - GI/Abdominal Exam GI & Abdominal Exam: Soft. absent: Tenderness - Extremities Exam Extremities exam: Positive for: pedal edema. Negative for: tenderness - Neurological Exam Neurological exam: Altered, Motor Sensory Deficit - Skin Skin Exam: Dry, Warm Results - Vital Signs Recent Vital Signs: Last Vital Signs Temp 97.7 F 05/06/17 07:20 Pulse 83 05/06/17 13:25 Resp 18 05/06/17 07:20 BP 99/54 L 05/06/17 07:20 Pulse Ox 94 L 05/06/17 07:20 - Labs Result Diagrams: 05/04/17 07:06 05/04/17 07:06 Labs: Laboratory Results - last 24 hr 05/05/17 05/05/17 05/06/17 17:15 21:03 06:53 POC Glucose (mg/dL) 101 116 H Random Vancomycin 25.07 05/06/17 05/06/17 07:01 11:56 POC Glucose (mg/dL) 130 H 206 H Random Vancomycin Assessment & Plan (1) HIV (human immunodeficiency virus infection) Status: Acute (2) Altered mental state Status: Acute (3) SUZANNE (acute kidney injury) Status: Acute (4) VRE bacteremia Status: Acute - Assessment and Plan (Free Text) Plan: renal US serial chemistries trial fluids IV IV ABs urine lytes
[2017-05-06] MEDS: Fluconazole IV 100mg/50 ml NS 50 ML IVPB SCH (14:07)
[2017-05-06 19:48] LABS: RBC URINE 68 /hpf (0-3); URINE BACTERIA FEW (<OCC); URINE BILIRUBIN NEGATIVE (NEGATIVE); URINE BLOOD 3+ (NEGATIVE); URINE COLOR Amber (YELLOW); URINE GLUCOSE (UA) 1+ mg/dL (Normal); URINE KETONE NEGATIVE (NEGATIVE); URINE LEUKOCYTE ESTERASE 3+ Leu/uL (Negative); URINE PROTEIN 2+ mg/dL (NEGATIVE); URINE UROBILINOGEN NORMAL mg/dL (0.2-1.0); WBC URINE 140 /hpf (0-5)
--- NOTE | 2017-05-06 19:52 | US ---
EXAM: US Retroperitoneal Complete, Renal EXAM DATE/TIME: 05/06/2017 3:19 PM CLINICAL HISTORY: 66 years old, male; Abnormal findings; Abnormal lab test; Other: Heriberto; Additional info: R/O obstruction, poor urine output TECHNIQUE: Real-time ultrasound of the retroperitoneum (complete) with image documentation. COMPARISON: RENAL/URINARY BLADDER US 04/09/2017 7:57:05 PM FINDINGS: Aorta: Aorta is partially obscured by bowel gas. Right kidney: Right kidney measures approximately 12 x 6 x 6 cm. Corticomedullary differentiation is visualized. There is no pelvocaliectasis. Left kidney: Left kidney measures approximately 13 x 7 x 7 cm. Corticomedullary differentiation is visualized. There is no pelvocaliectasis. Bladder: Bladder is empty. There is a Price catheter. IMPRESSION: Normal size kidneys, no hydronephrosis; empty bladder with Price catheter
[2017-05-07] MEDS: MethylPREDNISolone 40 mg Vial IVP SCH ×4 (00:59→17:43)
[2017-05-07] MEDS: Albuterol-Ipratrop 3 mg / 0.5 (3 ml) UD INH SCH ×4 (01:09→20:30)
[2017-05-07] MEDS: Dextrose 5%/0.45% NS 1,000 ML IV SCH ×3 (04:30→14:34)
[2017-05-07] MEDS: Meropenem 500 MG in Sodium Chloride 0.9% 100 ML IVPB SCH ×3 (06:21→21:20)
[2017-05-07] MEDS: (Novolin R) Insulin Human Regular 100 units/ml vial SC SCH ×4 (08:30→21:21)
[2017-05-07] MEDS: Linezolid 600 mg in D5W 300 ml 600 MG/300 ML BAG IVPB SCH ×2 (12:00→23:59)
--- NOTE | 2017-05-07 12:04 | CP.PCM.PN ---
Subjective - Date & Time of Evaluation Date of Evaluation: 05/07/17 Time of Evaluation: 07:00 - Subjective Subjective: Patient has h/o COPD, HIV, DM, HTN. History limited due to clinical condition. As per [facility] patient is DNR/DNI. on bipap for pneumonia septic weak confused - Medical History PMH: Arthritis, Asthma, CHF, COPD, Diabetes, Emphysema, Fractures (left lower leg, wrist , hand), HIV, Hyperlipidemia - [facility] Procedures ASSISTANCE WITH RESPIRATORY VENTILATION, >96 HRS, CPAP (03/08/17) NEBULIZER THERAPY (11/15/13) TRANSFUSE NONAUT PLATELETS IN PERIPH VEIN, PERC (03/08/17) TRANSFUSE NONAUT RED BLOOD CELLS IN PERIPH VEIN, PERC (03/08/17) Objective - Vital Signs/Intake and Output Vital Signs (last 24 hours): Temp Pulse Resp BP Pulse Ox 97.5 F L 100 H 18 122/72 100 05/07/17 09:05 05/07/17 09:05 05/07/17 09:05 05/07/17 09:05 05/07/17 09:05 Intake and Output: 05/07/17 05/07/17 06:59 18:59 Intake Total 750 Output Total 35 Balance 715 - Medications Medications: Current Medications Acetaminophen (Tylenol 650 Mg Supp) 650 mg NV Q6 PRN PRN Reason: Temperature > 100.4 F Albuterol/Ipratropium (Duoneb 3 Mg/0.5 Mg (3 Ml) Ud) 3 ml INH RQ6 [facility] Last Admin: 05/07/17 08:21 Dose: 3 ml Meropenem 500 mg/ Sodium (Chloride) 100 mls @ 100 mls/hr IVPB Q8 [facility] Last Admin: 05/07/17 06:21 Dose: 100 mls/hr Dextrose/Sodium Chloride (Dextrose 5%/0.45% Ns 1000 Ml) 1,000 mls @ 80 mls/hr IV .[id number] [facility] Last Admin: 05/07/17 09:23 Dose: Not Given Linezolid (Zyvox 600mg/300ml D5w) 600 mg in 300 mls @ 200 mls/hr IVPB Q12H [facility] Last Admin: 05/06/17 22:02 Dose: 200 mls/hr Fluconazole (Diflucan Iv 100 Mg/50 Ml Ns) 50 mls @ 100 mls/hr IVPB Q24H [facility] Last Admin: 05/06/17 14:07 Dose: 100 mls/hr Insulin Human Regular (Novolin R) 0 unit SC ACHS [facility] PRN Reason: Protocol Last Admin: 05/07/17 08:30 Dose: 3 unit Methylprednisolone (Solu-Medrol) 40 mg IVP Q6 [facility] Last Admin: 05/07/17 06:21 Dose: 40 mg - Labs Labs: 05/04/17 07:06 05/04/17 07:06 PT 25.4 SECONDS (9.7-12.2) H 05/03/17 13:35 INR 2.2 05/03/17 13:35 APTT 40 SECONDS (21-34) H 05/03/17 13:35 - Constitutional Appears: Toxic, Confused, Cachectic, Chronically Ill - Head Exam Head Exam: ATRAUMATIC, NORMAL INSPECTION, NORMOCEPHALIC - Eye Exam Eye Exam: PERRL. absent: Scleral icterus - ENT Exam ENT Exam: Mucous Membranes Dry, Normal External Ear Exam - Neck Exam Neck Exam: absent: Lymphadenopathy - Respiratory Exam Respiratory Exam: Decreased Breath Sounds, Rhonchi - Cardiovascular Exam Cardiovascular Exam: REGULAR RHYTHM - GI/Abdominal Exam GI & Abdominal Exam: Distended, Soft - Rectal Exam Rectal Exam: Deferred - Exam Exam: NORMAL INSPECTION - Extremities Exam Extremities Exam: absent: Pedal Edema - Back Exam Back Exam: absent: CVA tenderness (L), CVA tenderness (R) - Neurological Exam Neurological Exam: Altered - Psychiatric Exam Psychiatric exam: Depressed - Skin Skin Exam: Dry Assessment and Plan (1) CHF (congestive heart failure) Status: Acute (2) Dyspnea Status: Acute (3) Elevated troponin Status: Acute (4) Fever Status: Acute (5) Pneumonia Status: Acute (6) Sepsis Status: Acute (7) SUZANNE (acute kidney injury) Status: Acute (8) Anasarca Status: Acute (9) HIV antibody positive Status: Acute (10) Hypokalemia Status: Acute (11) Lung cancer Status: Acute (12) CARMELA (obstructive sleep apnea) Status: Acute (13) Obstructive uropathy Status: Acute (14) Pancytopenia Status: Acute (15) Prophylactic measure Status: Acute (16) Thrombocytopenia Status: Acute (17) UTI (urinary tract infection) Status: Acute - Assessment and Plan (Free Text) Assessment: sepsis/ bacteremia renal insuff copd chf HIV cont rx as ordered
--- NOTE | 2017-05-07 12:20 | CP.PCM.PN ---
Subjective - Date & Time of Evaluation Date of Evaluation: 05/07/17 Time of Evaluation: 12:17 - Subjective Subjective: seen and examined on cpap lethargic. unable to obtain ros attempted calling [facility], left message. Labs pending for today minimal uop overnight, silverman in place Objective - Vital Signs/Intake and Output Vital Signs (last 24 hours): Temp Pulse Resp BP Pulse Ox 97.5 F L 100 H 18 122/72 100 05/07/17 09:05 05/07/17 09:05 05/07/17 09:05 05/07/17 09:05 05/07/17 09:05 Intake and Output: 05/07/17 05/07/17 06:59 18:59 Intake Total 750 Output Total 35 Balance 715 - Medications Medications: Current Medications Acetaminophen (Tylenol 650 Mg Supp) 650 mg TN Q6 PRN PRN Reason: Temperature > 100.4 F Albuterol/Ipratropium (Duoneb 3 Mg/0.5 Mg (3 Ml) Ud) 3 ml INH RQ6 [facility] Last Admin: 05/07/17 08:21 Dose: 3 ml Meropenem 500 mg/ Sodium (Chloride) 100 mls @ 100 mls/hr IVPB Q8 [facility] Last Admin: 05/07/17 06:21 Dose: 100 mls/hr Dextrose/Sodium Chloride (Dextrose 5%/0.45% Ns 1000 Ml) 1,000 mls @ 80 mls/hr IV .[id number] [facility] Last Admin: 05/07/17 09:23 Dose: Not Given Linezolid (Zyvox 600mg/300ml D5w) 600 mg in 300 mls @ 200 mls/hr IVPB Q12H [facility] Last Admin: 05/06/17 22:02 Dose: 200 mls/hr Fluconazole (Diflucan Iv 100 Mg/50 Ml Ns) 50 mls @ 100 mls/hr IVPB Q24H [facility] Last Admin: 05/06/17 14:07 Dose: 100 mls/hr Insulin Human Regular (Novolin R) 0 unit SC ACHS [facility] PRN Reason: Protocol Last Admin: 05/07/17 08:30 Dose: 3 unit Methylprednisolone (Solu-Medrol) 40 mg IVP Q6 [facility] Last Admin: 05/07/17 06:21 Dose: 40 mg - Labs Labs: 05/04/17 07:06 05/04/17 07:06 PT 25.4 SECONDS (9.7-12.2) H 05/03/17 13:35 INR 2.2 05/03/17 13:35 APTT 40 SECONDS (21-34) H 05/03/17 13:35 - Constitutional Appears: Toxic, No Acute Distress, Older Than Stated Age (lethargic), Chronically Ill - Head Exam Head Exam: NORMAL INSPECTION - Eye Exam Eye Exam: Normal appearance - ENT Exam ENT Exam: Normal Exam (bipap meask in place) - Neck Exam Neck Exam: Normal Inspection - Respiratory Exam Respiratory Exam: Decreased Breath Sounds, Rhonchi - Cardiovascular Exam Cardiovascular Exam: REGULAR RHYTHM, RRR - GI/Abdominal Exam GI & Abdominal Exam: Distended, Soft, Normal Bowel Sounds - Extremities Exam Extremities Exam: Pedal Edema - Neurological Exam Additional comments: lethargic Assessment and Plan (1) SUZANNE (acute kidney injury) Status: Acute (2) Altered mental state Status: Acute (3) CHF (congestive heart failure) Status: Acute (4) Dyspnea Status: Acute (5) Elevated troponin Status: Acute (6) Fever Status: Acute (7) HIV (human immunodeficiency virus infection) Status: Acute (8) Pneumonia Status: Acute (9) Sepsis Status: Acute (10) VRE bacteremia Status: Acute - Assessment and Plan (Free Text) Assessment: Attempted calling family, left message on phone. Need to discuss goals of care. Labs pending, may need GYROSCOPIC INSTRUMENT TESTER. Severe sepsis, poor prognosis.
[2017-05-07 12:22] LABS: BASO % 0.1 % (0.0-2.0); EOS % 0.1 % (0.0-4.0); LYMPH # 0.3 K/uL (1.0-4.3); LYMPH % 3.7 % (20.0-40.0); MEAN CELL VOLUME 88.2 fL (80.0-94.0); MEAN CORPUSCULAR HEMOGLOBIN 28.8 pg (27.0-31.0); MEAN CORPUSCULAR HGB CONC 32.7 g/dL (33.0-37.0); MEAN PLATELET VOLUME 8.6 fL (7.2-11.7); MONO # 0.2 K/uL (0.0-0.8); MONO % 2.4 % (0.0-10.0); NRBC % 0.3 % (0.0-2.0); RED CELL DISTRIBUTION WIDTH 22.1 % (11.5-14.5); WHITE BLOOD COUNT 8.3 K/uL (4.8-10.8)
[2017-05-07 12:23] LABS: PLATELET COUNT 82 K/uL (130-400)
[2017-05-07 12:36] LABS: POTASSIUM 4.6 mmol/L (3.6-5.2)
[2017-05-07 12:38] LABS: BILIRUBIN,TOTAL 0.5 mg/dL (0.2-1.3)
[2017-05-07 12:39] LABS: ALB/GLOB RATIO 0.8 (1.0-2.1); PHOSPHOROUS 6.2 mg/dL (2.5-4.5)
[2017-05-07 12:40] LABS: CALCIUM 7.1 mg/dl (8.6-10.4); MAGNESIUM 1.6 mg/dL (1.6-2.3)
[2017-05-07] MEDS: Fluconazole IV 100mg/50 ml NS 50 ML IVPB SCH (12:46)
[2017-05-07 12:52] LABS: NEUTROPHIL 95 % (50-75); TOTAL CELLS COUNTED 100
--- NOTE | 2017-05-07 13:00 | CP.PCM.PN ---
Subjective - Date & Time of Evaluation Date of Evaluation: 05/07/17 Time of Evaluation: 09:30 - Subjective Subjective: Dr. Stanley note: Patient seen and examined in room. He is non verbal and I am unable to obtain history from patient he does have. He is a 66 year old male with a history of COPD, HTN, and DM is here being treated for pneumonia, UTI, and baceteremia. He also has acute renal failure with little to no urine output with a silverman catheter in place. No acute events overnight per nursing staff however his renal function is worsening. Objective - Vital Signs/Intake and Output Vital Signs (last 24 hours): Temp Pulse Resp BP Pulse Ox 97.5 F L 100 H 18 122/72 100 05/07/17 09:05 05/07/17 09:05 05/07/17 09:05 05/07/17 09:05 05/07/17 09:05 Intake and Output: 05/07/17 05/07/17 06:59 18:59 Intake Total 750 Output Total 35 Balance 715 - Medications Medications: Current Medications Acetaminophen (Tylenol 650 Mg Supp) 650 mg MD Q6 PRN PRN Reason: Temperature > 100.4 F Albuterol/Ipratropium (Duoneb 3 Mg/0.5 Mg (3 Ml) Ud) 3 ml INH RQ6 [facility] Last Admin: 05/07/17 08:21 Dose: 3 ml Meropenem 500 mg/ Sodium (Chloride) 100 mls @ 100 mls/hr IVPB Q8 [facility] Last Admin: 05/07/17 06:21 Dose: 100 mls/hr Dextrose/Sodium Chloride (Dextrose 5%/0.45% Ns 1000 Ml) 1,000 mls @ 80 mls/hr IV .[id number] [facility] Last Admin: 05/07/17 09:23 Dose: Not Given Linezolid (Zyvox 600mg/300ml D5w) 600 mg in 300 mls @ 200 mls/hr IVPB Q12H [facility] Last Admin: 05/07/17 12:00 Dose: 200 mls/hr Fluconazole (Diflucan Iv 100 Mg/50 Ml Ns) 50 mls @ 100 mls/hr IVPB Q24H [facility] Last Admin: 05/07/17 12:46 Dose: 100 mls/hr Insulin Human Regular (Novolin R) 0 unit SC ACHS [facility] PRN Reason: Protocol Last Admin: 05/07/17 12:30 Dose: 2 unit Methylprednisolone (Solu-Medrol) 40 mg IVP Q6 [facility] Last Admin: 05/07/17 12:55 Dose: 40 mg - Labs Labs: 05/07/17 11:59 05/07/17 11:59 PT 25.4 SECONDS (9.7-12.2) H 05/03/17 13:35 INR 2.2 05/03/17 13:35 APTT 40 SECONDS (21-34) H 05/03/17 13:35 - Constitutional Appears: Toxic, Unkempt - Eye Exam Eye Exam: absent: Normal appearance Additional comments: conjunctiva pallor - ENT Exam ENT Exam: Normal Exam - Respiratory Exam Respiratory Exam: Decreased Breath Sounds, Clear to Ausculation Bilateral, Rales. absent: Rhonchi, Wheezes, NORMAL BREATHING PATTERN Additional comments: on Bipap - Cardiovascular Exam Cardiovascular Exam: REGULAR RHYTHM, RRR, +S1, +S2. absent: Gallop, Rubs - GI/Abdominal Exam GI & Abdominal Exam: Soft, Normal Bowel Sounds. absent: Tenderness - Back Exam Back Exam: NORMAL INSPECTION - Neurological Exam Neurological Exam: absent: Alert - Psychiatric Exam Psychiatric exam: Normal Affect, Normal Mood - Skin Skin Exam: Pallor Assessment and Plan - Assessment and Plan (Free Text) Assessment: Sepsis-Baceremia 05/07: Patient is on Linozolid and Merripenom, Dr. La consulted, also on Diflucan for UTI as well. Admit to [facility] Criteria no longer met, but on admission (Temp, Tachy, WBC) Secondary to pneumonia or UTI Blood culture (05/03/17): Gram positive cocci- VRE x 1 (anaerobic positive only) ; no growth x 1 (aerobic bottle) Positive UA Urine Cx: Yeast Dr. La, help appreciated Contact Isolation for VRE Merrem 500mg IV Q8H [facility] Vancomycin ONCE Diflucan 100mg IV Q24H Zyvox 600mg IV Q12H Tylenol 650mg MD Q6H PRN Pneumonia 05/07: Could be the source of his bacteremia, will continue with IV antibiotics and bipap for support, patient is DNR/DNI CXR (05/03/17): Patchy b/l mid to lower lobe infiltrates. Cardiomegaly. (see full report) Dr. La, help appreciated Merrem 500mg IV Q8H [facility] -Vancomycin ONCE Zyvox 600mg IV Q12H Solumedrol 40mg IV Q6H Duoneb Q6H [facility] Bipap PRN Renal Failure 05/07: IV fluids, patient needs permacath for dialysis per nephrology consult. He still has no urine output an his creatine is now 3.7, he will most likely need dialysis, 2 physician consent in the chart. Dr. Domínguez, help appreciated - f/u urine lytes, renal/bladder US - recommend trial fluids IV - IV antibiotics UTI 05/07: on IV fluconazole. Hx of indwelling catheter, urinary retention UA (05/03/17): 3+ LE, WBC 16, few bacteria, Many yeast - f/u repeat UA Urinary culture: Yeast Dr. La, help appreciated - Fluconazole CHF, ejection fraction preserved 05/07: Need to be careful with IV fluids, however for now patient is NPO ECHO (02/26/17): EF 62%, mild tricuspid regurgitation, moderate pulm HTN, Mitral annular calcification, Right atrium dilated, Left atrium borderline dilated Hold home lasix BNP 24,000 on admission Anemia 05/07: Hbg 8.5, stable 7.8 on admission labs (05/04/17) - f/u AM labs HIV 05/07: HIV medication on hold for now, follow up with ID on when to start them. Pt on home Truvada 200/300mg, Raltegravir 400mg PO BID, Bactrim DS Will f/u with ID if clear to restart Type Two Diabetes Mellitus - Chronic 05/07: poorly controlled. RISS with accuchecks Sugars poorly controlled RISS COPD -Chronic 05/07: continue current supportive treatment patient is DNR/DNI Secondary to pneumonia, history of COPD Solumedrol 40mg IV Q6H Duoneb Q6H [facility] Bipap PRN ESacral Ulcer 05/07: wound care, help appreciated, turn patient q2H Wound care, consulted, help appreciated - f/u reccs History of BPH Tamsulosin 0.4mg PO daily End of Life Goals 05/07: patient is still DNR/DNI, see Pulse document in the chart Pt DNR/DNI f/u Palliative consult
--- NOTE | 2017-05-07 13:26 | CP.PCM.CON ---
History of Present Illness - History of Present Illness History of Present Illness: palliative consult Requested by Abran ROBLEDO Reason: Goals of care Patient is a 66 yo male admitted from [facility] with lethargy and SOB on the day of admission to the hospital. The CXR upon admission revealed Pneumonia , the urine and blood C&S came back positive. Merrem, Zyvox and Difflucan IV were initiated abd patient placed on BiPap for respiratory support. WBC dropped to 7.6 from 18.9, Hb down to 7.8 from 8.8. Patient is afebrile PMH: COPD, CHF, HIV, HTN Soc. Hx: , [place] resident, has no good relationship with his children, no contacts with them for years Fam. Hx: denies Review of Systems - Review of Systems All systems: reviewed and no additional remarkable complaints except Review of Systems: ROS obtained from nursing. No acute events over night. Patient is on Bi Pap except at meal time Past Patient History - Past Medical History & Family History Past Medical History?: Yes Past Family History: Reviewed and not pertinent - Past Social History Smoking Status: Former Smoker Alcohol: None - CARDIAC Hx Congestive Heart Failure: Yes - PULMONARY Hx Asthma: Yes Hx Chronic Obstructive Pulmonary Disease (COPD): Yes Hx Emphysema: Yes - NEUROLOGICAL Hx Neurological Disorder: No - HEENT Hx HEENT Problems: No - RENAL Hx Chronic Kidney Disease: No - ENDOCRINE/METABOLIC Hx Endocrine Disorders: Yes Hx Diabetes Mellitus Type 2: Yes - HEMATOLOGICAL/ONCOLOGICAL Hx Human Immunodeficiency Virus (HIV): Yes - INTEGUMENTARY Hx Dermatological Problems: Yes Other/Comment: skin tear right upper arm - MUSCULOSKELETAL/RHEUMATOLOGICAL Hx Arthritis: Yes Hx Fractures: Yes (left lower leg, wrist , hand) - GASTROINTESTINAL Hx Gastrointestinal Disorders: No - GENITOURINARY/GYNECOLOGICAL Hx Genitourinary Disorders: No - PSYCHIATRIC Hx Substance Use: No - SURGICAL HISTORY Hx Surgeries: Yes Hx Orthopedic Surgery: Yes (right shoulder torn rotator cuff 3 yr ago) - ANESTHESIA Hx Anesthesia: Yes Hx Anesthesia Reactions: No Hx Malignant Hyperthermia: No Meds Allergies/Adverse Reactions: Allergies Allergy/AdvReac Type Severity Reaction Status Date / Time clopidogrel [From Plavix] Allergy Verified 05/03/17 12:12 seafood Allergy Uncoded 05/03/17 12:12 - Medications Medications: Current Medications Acetaminophen (Tylenol 650 Mg Supp) 650 mg SC Q6 PRN PRN Reason: Temperature > 100.4 F Albuterol/Ipratropium (Duoneb 3 Mg/0.5 Mg (3 Ml) Ud) 3 ml INH RQ6 [facility] Last Admin: 05/07/17 08:21 Dose: 3 ml Meropenem 500 mg/ Sodium (Chloride) 100 mls @ 100 mls/hr IVPB Q8 [facility] Last Admin: 05/07/17 13:01 Dose: 100 mls/hr Dextrose/Sodium Chloride (Dextrose 5%/0.45% Ns 1000 Ml) 1,000 mls @ 80 mls/hr IV .[id number] [facility] Last Admin: 05/07/17 09:23 Dose: Not Given Linezolid (Zyvox 600mg/300ml D5w) 600 mg in 300 mls @ 200 mls/hr IVPB Q12H [facility] Last Admin: 05/07/17 12:00 Dose: 200 mls/hr Fluconazole (Diflucan Iv 100 Mg/50 Ml Ns) 50 mls @ 100 mls/hr IVPB Q24H [facility] Last Admin: 05/07/17 12:46 Dose: 100 mls/hr Insulin Human Regular (Novolin R) 0 unit SC ACHS [facility] PRN Reason: Protocol Last Admin: 05/07/17 12:30 Dose: 2 unit Methylprednisolone (Solu-Medrol) 40 mg IVP Q6 [facility] Last Admin: 05/07/17 12:55 Dose: 40 mg Physical Exam - Constitutional Appears: Chronically Ill - Head Exam Head Exam: ATRAUMATIC, NORMAL INSPECTION, NORMOCEPHALIC - Eye Exam Eye Exam: EOMI, Normal appearance, PERRL Pupil Exam: NORMAL ACCOMODATION, PERRL - ENT Exam ENT Exam: Mucous Membranes Dry, Normal Exam - Neck Exam Neck exam: Positive for: Normal Inspection - Respiratory Exam Respiratory Exam: Accessory Muscle Use, Decreased Breath Sounds - Cardiovascular Exam Cardiovascular Exam: Tachycardia, REGULAR RHYTHM - GI/Abdominal Exam GI & Abdominal Exam: Normal Bowel Sounds, Soft - Rectal Exam Rectal Exam: Deferred - Extremities Exam Extremities exam: Positive for: pedal edema - Back Exam Back exam: NORMAL INSPECTION - Neurological Exam Neurological exam: Alert, Altered - Psychiatric Exam Psychiatric exam: Flat Affect - Skin Skin Exam: Intact, Mottled, Pallor Results - Vital Signs Recent Vital Signs: Last Vital Signs Temp 97.5 F L 05/07/17 09:05 Pulse 100 H 05/07/17 09:05 Resp 18 05/07/17 09:05 BP 122/72 05/07/17 09:05 Pulse Ox 100 05/07/17 09:05 - Labs Result Diagrams: 05/07/17 11:59 05/07/17 11:59 Labs: Laboratory Results - last 24 hr 05/06/17 05/06/17 05/06/17 18:04 19:33 19:33 WBC RBC Hgb Hct MCV MCH MCHC RDW Plt Count MPV Neut % (Auto) Lymph % (Auto) [place] % (Auto) Eos % (Auto) Baso % (Auto) Neut # Lymph # [place] # Eos # Baso # Neutrophils % (Manual) Lymphocytes % (Manual) Monocytes % (Manual) Platelet Estimate Hypochromasia (manual) Poikilocytosis (manual Anisocytosis (manual) Microcytosis (manual) Target Cells Ovalocytes Solo Cells Sodium Potassium Chloride Carbon Dioxide Anion Gap BUN Creatinine Est GFR ( Amer) Est GFR (Non-Af Amer) POC Glucose (mg/dL) 185 H Random Glucose Calcium Phosphorus Magnesium Total Bilirubin AST ALT Alkaline Phosphatase Total Protein Albumin Globulin Albumin/Globulin Ratio Urine Color [place] Urine Clarity Hazy Urine pH 5.0 Ur Specific [place] 1.019 Urine Protein 2+ H Urine Glucose (UA) 1+ H Urine Ketones Negative Urine Blood 3+ H Urine Nitrate Negative Urine Bilirubin Negative Urine Urobilinogen Normal Ur Leukocyte Esterase 3+ H Urine WBC (Auto) 140 H Urine RBC (Auto) 68 H Urine Bacteria Few H Urine Yeast (Budding) Many H Ur Random Sodium 105 05/06/17 05/07/17 05/07/17 21:48 06:58 11:59 WBC RBC Hgb Hct MCV MCH MCHC RDW Plt Count MPV Neut % (Auto) Lymph % (Auto) [place] % (Auto) Eos % (Auto) Baso % (Auto) Neut # Lymph # [place] # Eos # Baso # Neutrophils % (Manual) Lymphocytes % (Manual) Monocytes % (Manual) Platelet Estimate Hypochromasia (manual) Poikilocytosis (manual Anisocytosis (manual) Microcytosis (manual) Target Cells Ovalocytes Solo Cells Sodium 144 Potassium 4.6 Chloride 108 H Carbon Dioxide 17 L Anion Gap 24 H BUN 56 H Creatinine 3.7 H Est GFR ( Amer) 20 Est GFR (Non-Af Amer) 17 POC Glucose (mg/dL) 226 H 257 H Random Glucose 199 H Calcium 7.1 L Phosphorus 6.2 H Magnesium 1.6 Total Bilirubin 0.5 AST 68 H D ALT 44 Alkaline Phosphatase 383 H D Total Protein 6.0 L Albumin 2.6 L Globulin 3.4 Albumin/Globulin Ratio 0.8 L Urine Color Urine Clarity Urine pH Ur Specific [place] Urine Protein Urine Glucose (UA) Urine Ketones Urine Blood Urine Nitrate Urine Bilirubin Urine Urobilinogen Ur Leukocyte Esterase Urine WBC (Auto) Urine RBC (Auto) Urine Bacteria Urine Yeast (Budding) Ur Random Sodium 05/07/17 05/07/17 11:59 12:23 WBC 8.3 RBC 2.95 L Hgb 8.5 L Hct 26.0 L MCV 88.2 MCH 28.8 MCHC 32.7 L RDW 22.1 H Plt Count 82 L MPV 8.6 Neut % (Auto) 93.7 H Lymph % (Auto) 3.[address] [place] % (Auto) 2.4 Eos % (Auto) 0.1 Baso % (Auto) 0.1 Neut # 7.8 H Lymph # 0.[address] [place] # 0.2 Eos # 0.0 Baso # 0.0 Neutrophils % (Manual) 95 H Lymphocytes % (Manual) 4 L Monocytes % (Manual) 1 Platelet Estimate Decreased L Hypochromasia (manual) Slight Poikilocytosis (manual Slight Anisocytosis (manual) Slight Microcytosis (manual) Slight Target Cells Slight Ovalocytes Slight [place] Cells Slight Sodium Potassium Chloride Carbon Dioxide Anion Gap BUN Creatinine Est GFR ( Amer) Est GFR (Non-Af Amer) POC Glucose (mg/dL) 232 H Random Glucose Calcium Phosphorus Magnesium Total Bilirubin AST ALT Alkaline Phosphatase Total Protein Albumin Globulin Albumin/Globulin Ratio Urine Color Urine Clarity Urine pH Ur Specific [place] Urine Protein Urine Glucose (UA) Urine Ketones Urine Blood Urine Nitrate Urine Bilirubin Urine Urobilinogen Ur Leukocyte Esterase Urine WBC (Auto) Urine RBC (Auto) Urine Bacteria Urine Yeast (Budding) Ur Random Sodium Assessment & Plan - Assessment and Plan (Free Text) Assessment: Palliative consul Code status DNR/DNI, POLST on chart I reviewed medical records, all diagnostic studies, examined and interviewed patient in the bed. Interview was limited due to patient's weakness. Patient seen in bed with BiPap on, alert and oriented to place and person. After removing the BiPap patient was able to answer simple questions. Patient reid he was at the hospital. Patient spoke in very soft and weak voice. I fed him his lunch, but he coughed several times while eating yogurt. Skin looks pale, sclera pale. There is pedal edema. Breath sounds are diminished. Patient gets SOB when off BiPap. Abdomen is large and soft. Denies abdominal pain. Limited ROM to upper and LEs. There are some bruises to upper arms. Skin very thin and dry. BP 122/72, HR 100, Temp 97.5. Impression * This is chronically ill patient with acute respiratory distress due to Pneumonia * Generalized weakness * Cough upon swallowing soft food * very limited ROM * At risk for skin break downs Suggestion * Would keep patient NPO, on IV hydration and do bed side swallow eval * Aspiration precautions * Monitor Hb and correct low level * Max assist with care * Assist with feedings
[2017-05-07] MEDS ORDERED: Dextrose 5%/0.45% NS 1,000 ML IV SCH (13:47)
--- NOTE | 2017-05-07 16:52 | CP.PCM.PN ---
Subjective - Date & Time of Evaluation Date of Evaluation: 05/07/17 Time of Evaluation: 16:51 - Subjective Subjective: Surgery: Dr. Jacobs CC: Permacath placement HPI: 66M w. pmh of COPD, HTN, DM, and HIV [facility] from [facility] w. SOB and lethargy. Limited hx obtained from pt given his current condition. He is arousable and is able to answer some questions. He is aware he is in hospital and that its 2017. Majority of info obtained from review of chart. Pt is DNR/ DNI, currently has sepsis from UTI vs PNA and acute on chronic kidney disease. Surgery has been consulted for permacath placement. PMH: see above PSH: R rotator cuff Meds: MAR reviewed ALL: clopidogrel Social: shelter resident, no ETOH/Drugs, former smoker Fhx: Non-contributory Objective - Vital Signs/Intake and Output Vital Signs (last 24 hours): Temp Pulse Resp BP Pulse Ox 97.5 F L 76 18 122/72 100 05/07/17 09:05 05/07/17 13:43 05/07/17 09:05 05/07/17 09:05 05/07/17 09:05 Intake and Output: 05/07/17 05/07/17 06:59 18:59 Intake Total 750 900 Output Total 35 10 Balance 715 890 - Medications Medications: Current Medications Acetaminophen (Tylenol 650 Mg Supp) 650 mg [place] Q6 PRN PRN Reason: Temperature > 100.4 F Albuterol/Ipratropium (Duoneb 3 Mg/0.5 Mg (3 Ml) Ud) 3 ml INH RQ6 [facility] Last Admin: 05/07/17 13:46 Dose: 3 ml Meropenem 500 mg/ Sodium (Chloride) 100 mls @ 100 mls/hr IVPB Q8 [facility] Last Admin: 05/07/17 13:01 Dose: 100 mls/hr Linezolid (Zyvox 600mg/300ml D5w) 600 mg in 300 mls @ 200 mls/hr IVPB Q12H [facility] Last Admin: 05/07/17 12:00 Dose: 200 mls/hr Fluconazole (Diflucan Iv 100 Mg/50 Ml Ns) 50 mls @ 100 mls/hr IVPB Q24H [facility] Last Admin: 05/07/17 12:46 Dose: 100 mls/hr Dextrose/Sodium Chloride (Dextrose 5%/0.45% Ns 1000 Ml) 1,000 mls @ 80 mls/hr IV .[id number] [facility] Last Admin: 05/07/17 14:34 Dose: Not Given Insulin Human Regular (Novolin R) [address] [facility] PRN Reason: Protocol Last Admin: 05/07/17 12:30 Dose: 2 unit Methylprednisolone (Solu-Medrol) [address] [facility] Last Admin: 05/07/17 12:55 Dose: 40 mg - Labs Labs: 05/07/17 11:59 05/07/17 11:59 PT 25.4 SECONDS (9.7-12.2) H 05/03/17 13:35 INR 2.2 05/03/17 13:35 APTT 40 SECONDS (21-34) H 05/03/17 13:35 - Constitutional Appears: Toxic, Chronically Ill - Head Exam Head Exam: ATRAUMATIC, NORMOCEPHALIC - Eye Exam Eye Exam: EOMI. absent: Scleral icterus - ENT Exam ENT Exam: Mucous Membranes Dry, Normal External Ear Exam - Neck Exam Neck Exam: Full ROM - Respiratory Exam Respiratory Exam: Accessory Muscle Use, NORMAL BREATHING PATTERN. absent: Respiratory Distress - GI/Abdominal Exam GI & Abdominal Exam: Soft. absent: Distended, Firm, Guarding, Rigid, Tenderness - Extremities Exam Additional comments: multiple bruises B/L UE + edema B/L LE - Neurological Exam Neurological Exam: Alert, Awake. absent: Oriented x3 - Psychiatric Exam Psychiatric exam: absent: Normal Affect, Normal Mood - Skin Skin Exam: Dry, Pallor Assessment and Plan - Assessment and Plan (Free Text) Assessment: 66M w. acute on chronic kidney disease, needs permacath -will call family to obtain consent -OR pending consent -d/w attending Lynette PGY3
[2017-05-07] MEDS ORDERED: Dextrose 50% SYRINGE Inj (50 ml) IV PRN (17:51)
--- NOTE | 2017-05-07 20:42 | CP.PCM.PN ---
Subjective - Date & Time of Evaluation Date of Evaluation: 05/06/17 Time of Evaluation: 20:15 - Subjective Subjective: No complaints Objective - Vital Signs/Intake and Output Vital Signs (last 24 hours): Temp Pulse Resp BP Pulse Ox 97.5 F L 78 18 134/75 90 L 05/07/17 15:10 05/07/17 20:35 05/07/17 15:10 05/07/17 15:10 05/07/17 15:10 Intake and Output: 05/07/17 05/08/17 18:59 06:59 Intake Total 900 Output Total 10 Balance 890 - Medications Medications: Current Medications Acetaminophen (Tylenol 650 Mg Supp) 650 mg [place] Q6 PRN PRN Reason: Temperature > 100.4 F Albuterol/Ipratropium (Duoneb 3 Mg/0.5 Mg (3 Ml) Ud) 3 ml INH RQ6 [facility] Last Admin: 05/07/17 20:30 Dose: 3 ml Dextrose (Dextrose 50% Inj) 0 ml IV STAT PRN; Protocol PRN Reason: Hyglycemia Protocol Meropenem 500 mg/ Sodium (Chloride) 100 mls @ 100 mls/hr IVPB Q8 [facility] Last Admin: 05/07/17 13:01 Dose: 100 mls/hr Linezolid (Zyvox 600mg/300ml D5w) 600 mg in 300 mls @ 200 mls/hr IVPB Q12H [facility] Last Admin: 05/07/17 12:00 Dose: 200 mls/hr Fluconazole (Diflucan Iv 100 Mg/50 Ml Ns) 50 mls @ 100 mls/hr IVPB Q24H [facility] Last Admin: 05/07/17 12:46 Dose: 100 mls/hr Dextrose/Sodium Chloride (Dextrose 5%/0.45% Ns 1000 Ml) 1,000 mls @ 80 mls/hr IV .[id number] [facility] Last Admin: 05/07/17 14:34 Dose: Not Given Dextrose (Dextrose 5% In Water 1000 Ml) 1,000 mls @ 0 mls/hr IV .Q0M PRN; Protocol; Per Protocol PRN Reason: Hypoglycemia Protocol Insulin Human Regular (Novolin R) 0 unit SC ACHS [facility] PRN Reason: Protocol Last Admin: 05/07/17 17:43 Dose: Not Given Methylprednisolone (Solu-Medrol) 40 mg IVP Q6 [facility] Last Admin: 05/07/17 17:43 Dose: 40 mg - Labs Labs: 05/07/17 11:59 05/07/17 11:59 PT 25.4 SECONDS (9.7-12.2) H 05/03/17 13:35 INR 2.2 05/03/17 13:35 APTT 40 SECONDS (21-34) H 05/03/17 13:35 - Head Exam Head Exam: ATRAUMATIC - Eye Exam Eye Exam: Normal appearance - ENT Exam ENT Exam: Mucous Membranes Dry - Respiratory Exam Respiratory Exam: NORMAL BREATHING PATTERN - Cardiovascular Exam Cardiovascular Exam: +S1, +S2 - GI/Abdominal Exam GI & Abdominal Exam: Normal Bowel Sounds Assessment and Plan (1) Anemia Assessment & Plan: prior iron deficiency; will repeat ferritin anemia of chronic disease and HIV transfusion support PRN Status: Acute (2) Thrombocytopenia Assessment & Plan: suspect sepsis related Status: Acute
--- NOTE | 2017-05-07 20:43 | CP.PCM.PN ---
Subjective - Date & Time of Evaluation Date of Evaluation: 05/07/17 Time of Evaluation: 13:00 - Subjective Subjective: Seen on bipap Objective - Vital Signs/Intake and Output Vital Signs (last 24 hours): Temp Pulse Resp BP Pulse Ox 97.5 F L 78 18 134/75 90 L 05/07/17 15:10 05/07/17 20:35 05/07/17 15:10 05/07/17 15:10 05/07/17 15:10 Intake and Output: 05/07/17 05/08/17 18:59 06:59 Intake Total 900 Output Total 10 Balance 890 - Medications Medications: Current Medications Acetaminophen (Tylenol 650 Mg Supp) 650 mg [place] Q6 PRN PRN Reason: Temperature > 100.4 F Albuterol/Ipratropium (Duoneb 3 Mg/0.5 Mg (3 Ml) Ud) 3 ml INH RQ6 [facility] Last Admin: 05/07/17 20:30 Dose: 3 ml Dextrose (Dextrose 50% Inj) 0 ml IV STAT PRN; Protocol PRN Reason: Hyglycemia Protocol Meropenem 500 mg/ Sodium (Chloride) 100 mls @ 100 mls/hr IVPB Q8 [facility] Last Admin: 05/07/17 13:01 Dose: 100 mls/hr Linezolid (Zyvox 600mg/300ml D5w) 600 mg in 300 mls @ 200 mls/hr IVPB Q12H [facility] Last Admin: 05/07/17 12:00 Dose: 200 mls/hr Fluconazole (Diflucan Iv 100 Mg/50 Ml Ns) 50 mls @ 100 mls/hr IVPB Q24H [facility] Last Admin: 05/07/17 12:46 Dose: 100 mls/hr Dextrose/Sodium Chloride (Dextrose 5%/0.45% Ns 1000 Ml) 1,000 mls @ 80 mls/hr IV .[id number] [facility] Last Admin: 05/07/17 14:34 Dose: Not Given Dextrose (Dextrose 5% In Water 1000 Ml) 1,000 mls @ 0 mls/hr IV .Q0M PRN; Protocol; Per Protocol PRN Reason: Hypoglycemia Protocol Insulin Human Regular (Novolin R) 0 unit SC ACHS [facility] PRN Reason: Protocol Last Admin: 05/07/17 17:43 Dose: Not Given Methylprednisolone (Solu-Medrol) 40 mg IVP Q6 [facility] Last Admin: 05/07/17 17:43 Dose: 40 mg - Labs Labs: 05/07/17 11:59 05/07/17 11:59 PT 25.4 SECONDS (9.7-12.2) H 05/03/17 13:35 INR 2.2 05/03/17 13:35 APTT 40 SECONDS (21-34) H 05/03/17 13:35 - Head Exam Head Exam: ATRAUMATIC - Eye Exam Eye Exam: Normal appearance - ENT Exam ENT Exam: Mucous Membranes Dry - Respiratory Exam Respiratory Exam: NORMAL BREATHING PATTERN - Cardiovascular Exam Cardiovascular Exam: +S1, +S2 - GI/Abdominal Exam GI & Abdominal Exam: Normal Bowel Sounds Assessment and Plan (1) Anemia Assessment & Plan: repeat ferritin in AM to rule out iron deficiency anemia of chronic disease and HIV Status: Acute (2) Thrombocytopenia Assessment & Plan: suspect sepsis related Status: Acute
--- NOTE | 2017-05-07 22:19 | CARD ---
APPROVED REPORT EKG Measurement Heart [id number] <Conclusion> Sinus rhythm Low voltage QRS Possible Anterolateral infarct, age undetermined Abnormal ECG
[2017-05-08] MEDS: MethylPREDNISolone 40 mg Vial IVP SCH ×4 (00:10→18:33)
[2017-05-08] MEDS: Albuterol-Ipratrop 3 mg / 0.5 (3 ml) UD INH SCH ×4 (01:24→19:59)
[2017-05-08] MEDS: Meropenem 500 MG in Sodium Chloride 0.9% 100 ML IVPB SCH ×3 (05:30→21:09)
[2017-05-08] MEDS: (Novolin R) Insulin Human Regular 100 units/ml vial SC SCH ×5 (08:23→23:15)
[2017-05-08 08:44] LABS: POTASSIUM 4.7 mmol/L (3.6-5.2)
[2017-05-08 08:46] LABS: ALB/GLOB RATIO 0.7 (1.0-2.1); BILIRUBIN,TOTAL 0.5 mg/dL (0.2-1.3); TOTAL PROTEIN 6.4 g/dL (6.3-8.3)
[2017-05-08 08:47] LABS: CALCIUM 7.1 mg/dl (8.6-10.4); MAGNESIUM 1.6 mg/dL (1.6-2.3)
[2017-05-08 09:45] LABS: FOLATE 8.6 ng/mL
[2017-05-08] MEDS: Linezolid 600 mg in D5W 300 ml 600 MG/300 ML BAG IVPB SCH ×2 (11:00→22:16)
[2017-05-08 11:57] LABS: HEMATOCRIT 24.1 % (35.0-51.0); LYMPH # 0.2 K/uL (1.0-4.3); LYMPH % 3.5 % (20.0-40.0); MEAN CELL VOLUME 87.3 fL (80.0-94.0); MEAN CORPUSCULAR HEMOGLOBIN 28.7 pg (27.0-31.0); MEAN CORPUSCULAR HGB CONC 32.9 g/dL (33.0-37.0); MEAN PLATELET VOLUME 8.5 fL (7.2-11.7); MONO # 0.1 K/uL (0.0-0.8); MONO % 1.9 % (0.0-10.0); NRBC % 0.3 % (0.0-2.0); PLATELET COUNT 66 K/uL (130-400); RED CELL DISTRIBUTION WIDTH 21.4 % (11.5-14.5); WHITE BLOOD COUNT 6.5 K/uL (4.8-10.8)
[2017-05-08] MEDS: Fluconazole IV 100mg/50 ml NS 50 ML IVPB SCH (11:57)
[2017-05-08] MEDS: Dextrose 5%/0.45% NS 1,000 ML IV SCH ×2 (12:01→15:00)
[2017-05-08 12:42] LABS: NEUTROPHIL 96 % (50-75); TOTAL CELLS COUNTED 100
--- NOTE | 2017-05-08 13:09 | PCM.URO ---
Urology Progress Note - General General: No Complaints - Subjective Abdominal Pain: No Flank Pain: No Nausea: No Voiding Well: No (cathetr in place) Hematuria: No Dsypnea: Yes - Objective Lab Studies: Reviewed Lab Results Last 24 Hours: Laboratory Results - last 24 hr 05/07/17 05/07/17 05/08/17 17:13 21:37 06:26 WBC RBC Hgb Hct MCV MCH MCHC RDW Plt Count MPV Neut % (Auto) Lymph % (Auto) [place] % (Auto) Eos % (Auto) Baso % (Auto) Neut # Lymph # [place] # Eos # Baso # Neutrophils % (Manual) Lymphocytes % (Manual) Monocytes % (Manual) Platelet Estimate Hypochromasia (manual) Poikilocytosis (manual Anisocytosis (manual) Microcytosis (manual) Macrocytosis (manual) Tear Drop Cells Ovalocytes Helmet Cells Retic Count Fibrinogen Sodium Potassium Chloride Carbon Dioxide Anion Gap BUN Creatinine Est GFR ( Amer) Est GFR (Non-Af Amer) POC Glucose (mg/dL) 172 H 162 H 196 H Random Glucose Calcium Magnesium Ferritin Total Bilirubin AST ALT Alkaline Phosphatase Total Protein Albumin Globulin Albumin/Globulin Ratio Vitamin B12 Folate Hep Bs Antigen 05/08/17 05/08/17 05/08/17 07:55 11:39 11:39 WBC 6.5 RBC 2.76 L Hgb 7.9 L Hct 24.1 L MCV 87.3 MCH 28.7 MCHC 32.9 L RDW 21.4 H Plt Count 66 L MPV 8.5 Neut % (Auto) 94.6 H Lymph % (Auto) 3.5 L [place] % (Auto) 1.9 Eos % (Auto) 0.0 Baso % (Auto) 0.0 Neut # 6.2 Lymph # 0.2 L [place] # 0.1 Eos # 0.0 Baso # 0.0 Neutrophils % (Manual) 96 H Lymphocytes % (Manual) 2 L Monocytes % (Manual) 2 Platelet Estimate Decreased L Hypochromasia (manual) Slight Poikilocytosis (manual Slight Anisocytosis (manual) Slight Microcytosis (manual) Slight Macrocytosis (manual) Slight Tear Drop Cells Slight Ovalocytes Slight Helmet Cells Slight Retic Count Fibrinogen 215 Sodium 142 Potassium 4.7 Chloride 108 H Carbon Dioxide 18 L Anion Gap 21 H BUN 57 H Creatinine 3.7 H Est GFR ( Amer) 20 Est GFR (Non-Af Amer) 17 POC Glucose (mg/dL) Random Glucose 170 H Calcium 7.1 L Magnesium 1.6 Ferritin 2920.0 Total Bilirubin 0.5 AST 65 H ALT 45 Alkaline Phosphatase 357 H Total Protein 6.4 Albumin 2.6 L Globulin 3.8 Albumin/Globulin Ratio 0.7 L Vitamin B12 737 Folate 8.6 Hep Bs Antigen 05/08/17 05/08/17 05/08/17 11:43 11:45 11:45 WBC RBC Hgb Hct MCV MCH MCHC RDW Plt Count MPV Neut % (Auto) Lymph % (Auto) [place] % (Auto) Eos % (Auto) Baso % (Auto) Neut # Lymph # [place] # Eos # Baso # Neutrophils % (Manual) Lymphocytes % (Manual) Monocytes % (Manual) Platelet Estimate Hypochromasia (manual) Poikilocytosis (manual Anisocytosis (manual) Microcytosis (manual) Macrocytosis (manual) Tear Drop Cells Ovalocytes Helmet Cells Retic Count 0.7 D Fibrinogen Sodium Potassium Chloride Carbon Dioxide Anion Gap BUN Creatinine Est GFR ( Amer) Est GFR (Non-Af Amer) POC Glucose (mg/dL) 190 H Random Glucose Calcium Magnesium Ferritin Total Bilirubin AST ALT Alkaline Phosphatase Total Protein Albumin Globulin Albumin/Globulin Ratio Vitamin B12 Folate Hep Bs Antigen Negative Intake & Output: Intake & Output 05/07/17 05/08/17 05/08/17 18:59 06:59 18:59 Intake Total 900 1480 Output Total 10 100 Balance 890 1380 Weight 197 lb 197 lb 1.6 oz Intake: Intake, IV Amount 800 1480 Left Hand 800 1480 Oral 100 0 Output: Urine 10 100 Urethral (Price) 10 100 Other: # Bowel Movements 0 Vital Signs: Vital Signs - 24 hr 05/07/17 05/07/17 05/07/17 13:43 15:10 16:31 Temperature 97.5 F L Pulse Rate 76 78 75 Respiratory 18 Rate Blood Pressure 134/75 O2 Sat by Pulse 90 L Oximetry 05/07/17 05/07/17 05/07/17 17:57 20:35 23:25 Temperature 97.6 F Pulse Rate 18 L 78 74 Respiratory 20 Rate Blood Pressure 123/57 L O2 Sat by Pulse 100 Oximetry 05/07/17 05/08/17 05/08/17 23:51 00:51 04:04 Temperature Pulse Rate 75 71 63 Respiratory Rate Blood Pressure O2 Sat by Pulse Oximetry 05/08/17 05/08/17 05/08/17 04:10 05:05 08:08 Temperature 97.4 F L Pulse Rate 87 87 87 Respiratory 20 Rate Blood Pressure 112/69 O2 Sat by Pulse 100 Oximetry 05/08/17 05/08/17 05/08/17 08:16 08:19 08:48 Temperature 97.6 F Pulse Rate 80 64 79 Respiratory 20 Rate Blood Pressure 131/71 O2 Sat by Pulse 100 Oximetry 05/08/17 11:45 Temperature Pulse Rate 71 Respiratory Rate Blood Pressure O2 Sat by Pulse Oximetry - Physical Exam Abdominal Exam: Soft, Non-Tender, Non-Distended Back: No CVA Tenderness Genitalia: Without Inflammation Urinary Catheter Draining Well: Yes Urine Color: Yellow - Male Phallus: Uncircumcised (edema of genitalia concealed penis) Scrotum: Edema - Plan Additional Information: Imp: renal failure. Renal US reveals absence of hydronephrosis. chf. copd. retention - Date & Time of Note Date: 05/08/17 Time: 13:09
[2017-05-08] MEDS ORDERED: Lidocaine 1% Inj (20ml) ONE (14:31)
[2017-05-08] MEDS ORDERED: HEPARIN-NS 5,000 UNITS/500 ML 5,000 UNIT/500 ML BAG IV ONE (14:31)
--- NOTE | 2017-05-08 15:05 | CP.PCM.PN ---
Subjective - Date & Time of Evaluation Date of Evaluation: 05/08/17 Time of Evaluation: 15:01 - Subjective Subjective: For permcath now Remains oliguric. Still with metabolic acidosis Has been lethargic DNR/ DNI status noted Cannot obtain further ROS Objective - Vital Signs/Intake and Output Vital Signs (last 24 hours): Temp Pulse Resp BP Pulse Ox 97.6 F 71 20 131/71 100 05/08/17 08:48 05/08/17 13:26 05/08/17 08:48 05/08/17 08:48 05/08/17 08:48 Intake and Output: 05/08/17 05/08/17 06:59 18:59 Intake Total 1480 Output Total 100 Balance 1380 - Medications Medications: Current Medications Acetaminophen (Tylenol 650 Mg Supp) 650 mg [place] Q6 PRN PRN Reason: Temperature > 100.4 F Albuterol/Ipratropium (Duoneb 3 Mg/0.5 Mg (3 Ml) Ud) 3 ml INH RQ6 [facility] Last Admin: 05/08/17 13:25 Dose: 3 ml Dextrose (Dextrose 50% Inj) 0 ml IV STAT PRN; Protocol PRN Reason: Hyglycemia Protocol Meropenem 500 mg/ Sodium (Chloride) 100 mls @ 100 mls/hr IVPB Q8 [facility] Last Admin: 05/08/17 14:46 Dose: Not Given Linezolid (Zyvox 600mg/300ml D5w) 600 mg in 300 mls @ 200 mls/hr IVPB Q12H [facility] Last Admin: 05/08/17 11:00 Dose: 200 mls/hr Fluconazole (Diflucan Iv 100 Mg/50 Ml Ns) 50 mls @ 100 mls/hr IVPB Q24H [facility] Last Admin: 05/08/17 11:57 Dose: 100 mls/hr Dextrose/Sodium Chloride (Dextrose 5%/0.45% Ns 1000 Ml) 1,000 mls @ 80 mls/hr IV .[id number] [facility] Last Admin: 05/08/17 12:01 Dose: 80 mls/hr Dextrose (Dextrose 5% In Water 1000 Ml) 1,000 mls @ 0 mls/hr IV .Q0M PRN; Protocol; Per Protocol PRN Reason: Hypoglycemia Protocol Insulin Human Regular (Novolin R) 0 unit SC ACHS [facility] PRN Reason: Protocol Last Admin: 05/08/17 11:38 Dose: Not Given Methylprednisolone (Solu-Medrol) 40 mg IVP Q6 [facility] Last Admin: 05/08/17 12:01 Dose: 40 mg - Labs Labs: 05/08/17 11:39 05/08/17 07:55 PT 25.4 SECONDS (9.7-12.2) H 05/03/17 13:35 INR 2.2 05/03/17 13:35 APTT 40 SECONDS (21-34) H 05/03/17 13:35 - Constitutional Appears: No Acute Distress, Chronically Ill - Head Exam Head Exam: ATRAUMATIC, NORMAL INSPECTION - Eye Exam Eye Exam: EOMI, Normal appearance - Neck Exam Neck Exam: Normal Inspection. absent: Tenderness - Respiratory Exam Respiratory Exam: Clear to Ausculation Bilateral, NORMAL BREATHING PATTERN - Cardiovascular Exam Cardiovascular Exam: REGULAR RHYTHM, +S1 - GI/Abdominal Exam GI & Abdominal Exam: Soft. absent: Tenderness - Extremities Exam Extremities Exam: Pedal Edema, Tenderness - Neurological Exam Neurological Exam: Altered, Motor Sensory Deficit - Skin Skin Exam: Dry, Warm Assessment and Plan (1) HIV (human immunodeficiency virus infection) Status: Acute (2) Altered mental state Status: Acute (3) SUZANNE (acute kidney injury) Status: Acute (4) VRE bacteremia Status: Acute - Assessment and Plan (Free Text) Plan: Will discuss further with patient about dialysis Will schedule for now
--- NOTE | 2017-05-08 15:09 | CP.PCM.PN ---
Subjective - Date & Time of Evaluation Date of Evaluation: 05/08/17 Time of Evaluation: 15:05 - Subjective Subjective: Discussed with Brandon from risk management regarding suspending DNR/DNI for duration of surgery and patient's stay in PACU. Patient is not mentally competent and has no legal guardian or next of kin. Therefore, Dr. Samuels and I discussed the situation, and we both agree that patient's DNR/DNI needs to be suspended in order to allow for this urgent surgery. signedP LEAH SAMUELS Objective - Vital Signs/Intake and Output Vital Signs (last 24 hours): Temp Pulse Resp BP Pulse Ox 97.6 F 71 20 131/71 100 05/08/17 08:48 05/08/17 13:26 05/08/17 08:48 05/08/17 08:48 05/08/17 08:48 Intake and Output: 05/08/17 05/08/17 06:59 18:59 Intake Total 1480 840 Output Total 100 10 Balance 1380 830 - Medications Medications: Current Medications Acetaminophen (Tylenol 650 Mg Supp) 650 mg [place] Q6 PRN PRN Reason: Temperature > 100.4 F Albuterol/Ipratropium (Duoneb 3 Mg/0.5 Mg (3 Ml) Ud) 3 ml INH RQ6 [facility] Last Admin: 05/08/17 13:25 Dose: 3 ml Dextrose (Dextrose 50% Inj) 0 ml IV STAT PRN; Protocol PRN Reason: Hyglycemia Protocol Meropenem 500 mg/ Sodium (Chloride) 100 mls @ 100 mls/hr IVPB Q8 [facility] Last Admin: 05/08/17 14:46 Dose: Not Given Linezolid (Zyvox 600mg/300ml D5w) 600 mg in 300 mls @ 200 mls/hr IVPB Q12H [facility] Last Admin: 05/08/17 11:00 Dose: 200 mls/hr Fluconazole (Diflucan Iv 100 Mg/50 Ml Ns) 50 mls @ 100 mls/hr IVPB Q24H [facility] Last Admin: 05/08/17 11:57 Dose: 100 mls/hr Dextrose/Sodium Chloride (Dextrose 5%/0.45% Ns 1000 Ml) 1,000 mls @ 80 mls/hr IV .[id number] [facility] Last Admin: 05/08/17 12:01 Dose: 80 mls/hr Dextrose (Dextrose 5% In Water 1000 Ml) 1,000 mls @ 0 mls/hr IV .Q0M PRN; Protocol; Per Protocol PRN Reason: Hypoglycemia Protocol Insulin Human Regular (Novolin R) 0 unit SC ACHS [facility] PRN Reason: Protocol Last Admin: 05/08/17 11:38 Dose: Not Given Methylprednisolone (Solu-Medrol) 40 mg IVP Q6 [facility] Last Admin: 05/08/17 12:01 Dose: 40 mg - Labs Labs: 05/08/17 11:39 05/08/17 07:55 PT 25.4 SECONDS (9.7-12.2) H 05/03/17 13:35 INR 2.2 05/03/17 13:35 APTT 40 SECONDS (21-34) H 05/03/17 13:35
[2017-05-08] MEDS ORDERED: Midazolam 2 MG/2 ML VIAL ONE (15:13)
[2017-05-08] MEDS ORDERED: Propofol 10 mg/ml Inj (20 ML) ONE (15:13)
[2017-05-08] MEDS ORDERED: Sodium Chloride 0.9% 500 ML IV ONE (15:15)
[2017-05-08] MEDS ORDERED: Iohexol 240 (50 ml) ONE (15:37)
--- NOTE | 2017-05-08 16:18 | PCM.SURG1 ---
Surgeon's Initial Post Op Note - Surgeon's Notes Surgeon: Arlene Hand Cooper Helper: Lynette PGY3 Type of Anesthesia: IV Sedation, Local Pre-Operative Diagnosis: SUZANNE Operative Findings: normal neck anatomy Post-Operative Diagnosis: same Operation Performed: removal of R IJ portacath and placement of R IJ permacath Specimen/Specimens Removed: portacath Estimated Blood Loss: EBL {In ML}: 10 Blood Products Given: N/A Drains Used: No Drains Post-Op Condition: Fair Date of Surgery/Procedure: 05/08/17 Time of Surgery/Procedure: 16:18
--- NOTE | 2017-05-08 18:15 | RAD ---
HISTORY: s/p R IJ permacath COMPARISON: 05/03/2017 FINDINGS: Right-sided PermCath terminates in the right atrium. LUNGS: There are low lung volumes. There is pulmonary venous congestion and mild interstitial pulmonary edema. There is left basilar atelectasis. PLEURA: No significant pleural effusion identified, no pneumothorax apparent. CARDIOVASCULAR: Status post median sternotomy. The heart is normal in size. OSSEOUS STRUCTURES: Diffuse bone demineralization. There are old fracture deformities in the left upper ribs. VISUALIZED UPPER ABDOMEN: Normal. OTHER FINDINGS: None. IMPRESSION: Right PermCath terminates in the right atrium. Persistent low lung volumes, pulmonary venous congestion, mild interstitial pulmonary edema and left basilar atelectasis.
--- NOTE | 2017-05-08 18:26 | CP.PCM.PN ---
Subjective - Date & Time of Evaluation Date of Evaluation: 05/08/17 Time of Evaluation: 09:20 - Subjective Subjective: Dr. Stanley note: Patient is being breathing for pneumonia, bacteremia, renal failure, is on bipap. Patient is not responsive and does not answer questions and using BIPAP for respiratory support. I was able to speak to patient's sister over the phone who agreed for the patient to have a permacath and dialyisis if that was needed for the patient. Objective - Vital Signs/Intake and Output Vital Signs (last 24 hours): Temp Pulse Resp BP Pulse Ox 98.5 F 73 9 L 158/68 H 100 05/08/17 17:30 05/08/17 17:30 05/08/17 17:30 05/08/17 17:30 05/08/17 17:30 Intake and Output: 05/08/17 05/08/17 06:59 18:59 Intake Total 1480 840 Output Total 100 10 Balance 1380 830 - Medications Medications: Current Medications Acetaminophen (Tylenol 650 Mg Supp) 650 mg [place] Q6 PRN PRN Reason: Temperature > 100.4 F Albuterol/Ipratropium (Duoneb 3 Mg/0.5 Mg (3 Ml) Ud) 3 ml INH RQ6 [facility] Last Admin: 05/08/17 13:25 Dose: 3 ml Dextrose (Dextrose 50% Inj) 0 ml IV STAT PRN; Protocol PRN Reason: Hyglycemia Protocol Meropenem 500 mg/ Sodium (Chloride) 100 mls @ 100 mls/hr IVPB Q8 [facility] Last Admin: 05/08/17 14:46 Dose: Not Given Linezolid (Zyvox 600mg/300ml D5w) 600 mg in 300 mls @ 200 mls/hr IVPB Q12H [facility] Last Admin: 05/08/17 11:00 Dose: 200 mls/hr Fluconazole (Diflucan Iv 100 Mg/50 Ml Ns) 50 mls @ 100 mls/hr IVPB Q24H [facility] Last Admin: 05/08/17 11:57 Dose: 100 mls/hr Dextrose/Sodium Chloride (Dextrose 5%/0.45% Ns 1000 Ml) 1,000 mls @ 80 mls/hr IV .[id number] [facility] Last Admin: 05/08/17 15:00 Dose: Not Given Dextrose (Dextrose 5% In Water 1000 Ml) 1,000 mls @ 0 mls/hr IV .Q0M PRN; Protocol; Per Protocol PRN Reason: Hypoglycemia Protocol Insulin Human Regular (Novolin R) 0 unit SC ACHS [facility] PRN Reason: Protocol Last Admin: 05/08/17 16:30 Dose: Not Given Methylprednisolone (Solu-Medrol) 40 mg IVP Q6 [facility] Last Admin: 05/08/17 12:01 Dose: 40 mg Morphine Sulfate (Morphine) 2 mg IVP Q4 PRN PRN Reason: Pain, moderate (4-7) - Labs Labs: 05/08/17 11:39 05/08/17 07:55 PT 25.4 SECONDS (9.7-12.2) H 05/03/17 13:35 INR 2.2 05/03/17 13:35 APTT 40 SECONDS (21-34) H 05/03/17 13:35 - Constitutional Appears: In Acute Distress - Eye Exam Eye Exam: Normal appearance. absent: Scleral icterus Pupil Exam: NORMAL ACCOMODATION - Respiratory Exam Respiratory Exam: Decreased Breath Sounds, Rales, Respiratory Distress. absent : Clear to Ausculation Bilateral, Rhonchi, Wheezes, NORMAL BREATHING PATTERN - Cardiovascular Exam Cardiovascular Exam: REGULAR RHYTHM, RRR, +S1, +S2. absent: Gallop, Rubs - GI/Abdominal Exam GI & Abdominal Exam: Soft, Normal Bowel Sounds. absent: Tenderness - Extremities Exam Extremities Exam: absent: Pedal Edema - Skin Skin Exam: Pallor Assessment and Plan - Assessment and Plan (Free Text) Assessment: Sepsis-Baceremia 05/08: Patient is still on IV Linozolid and Merripenon, continue BIPAP for support 05/07: Patient is on Linozolid and Merripenom, Dr. La consulted, also on Diflucan for UTI as well. Admit to [facility] Criteria no longer met, but on admission (Temp, Tachy, WBC) Secondary to pneumonia or UTI Blood culture (05/03/17): Gram positive cocci- VRE x 1 (anaerobic positive only) ; no growth x 1 (aerobic bottle) Positive UA Urine Cx: Yeast Dr. La, help appreciated Contact Isolation for VRE Merrem 500mg IV Q8H [facility] Vancomycin ONCE Diflucan 100mg IV Q24H Zyvox 600mg IV Q12H Tylenol 650mg [place] Q6H PRN Pneumonia 05/07: Could be the source of his bacteremia, will continue with IV antibiotics and bipap for support, patient is DNR/DNI CXR (05/03/17): Patchy b/l mid to lower lobe infiltrates. Cardiomegaly. (see full report) Dr. La, help appreciated Merrem 500mg IV Q8H [facility] -Vancomycin ONCE Zyvox 600mg IV Q12H Solumedrol 40mg IV Q6H Duoneb Q6H [facility] Bipap PRN Renal Failure 05/08: Permacath today, follow up with nephro about possible dialysis. 05/07: IV fluids, patient needs permacath for dialysis per nephrology consult. He still has no urine output an his creatine is now 3.7, he will most likely need dialysis, 2 physician consent in the chart. Dr. Domínguez, help appreciated - f/u urine lytes, renal/bladder US - recommend trial fluids IV - IV antibiotics UTI 05/08: continue IV Fluconazole. 05/07: on IV fluconazole. Hx of indwelling catheter, urinary retention UA (05/03/17): 3+ LE, WBC 16, few bacteria, Many yeast - f/u repeat UA Urinary culture: Yeast Dr. La, help appreciated - Fluconazole CHF, ejection fraction preserved 05/08: continue gentle IV fluids. 05/07: Need to be careful with IV fluids, however for now patient is NPO ECHO (02/26/17): EF 62%, mild tricuspid regurgitation, moderate pulm HTN, Mitral annular calcification, Right atrium dilated, Left atrium borderline dilated Hold home lasix BNP 24,000 on admission Anemia 05/08: Hbg is 7.5, continue to monitor. 05/07: Hbg 8.5, stable 7.8 on admission labs (05/04/17) - f/u AM labs HIV 05/07: HIV medication on hold for now, follow up with ID on when to start them. Pt on home Truvada 200/300mg, Raltegravir 400mg PO BID, Bactrim DS Will f/u with ID if clear to restart Type Two Diabetes Mellitus - Chronic 05/07: poorly controlled. RISS with accuchecks Sugars poorly controlled RISS COPD -Chronic 05/07: continue current supportive treatment patient is DNR/DNI Secondary to pneumonia, history of COPD Solumedrol 40mg IV Q6H Duoneb Q6H [facility] Bipap PRN ESacral Ulcer 05/07: wound care, help appreciated, turn patient q2H Wound care, consulted, help appreciated - f/u reccs History of BPH Tamsulosin 0.4mg PO daily End of Life Goals 05/08: DNR/DNi post poned for surgery. 05/07: patient is still DNR/DNI, see Pulse document in the chart Pt DNR/DNI f/u Palliative consult
--- NOTE | 2017-05-08 18:29 | CP.PCM.PN ---
Subjective - Date & Time of Evaluation Date of Evaluation: 05/08/17 Time of Evaluation: 10:00 - Subjective Subjective: afebrile confused on BiPaP Objective - Vital Signs/Intake and Output Vital Signs (last 24 hours): Temp Pulse Resp BP Pulse Ox 98.5 F 73 9 L 158/68 H 100 05/08/17 17:30 05/08/17 17:30 05/08/17 17:30 05/08/17 17:30 05/08/17 17:30 Intake and Output: 05/08/17 05/08/17 06:59 18:59 Intake Total 1480 840 Output Total 100 10 Balance 1380 830 - Medications Medications: Current Medications Acetaminophen (Tylenol 650 Mg Supp) 650 mg [place] Q6 PRN PRN Reason: Temperature > 100.4 F Albuterol/Ipratropium (Duoneb 3 Mg/0.5 Mg (3 Ml) Ud) 3 ml INH RQ6 [facility] Last Admin: 05/08/17 13:25 Dose: 3 ml Dextrose (Dextrose 50% Inj) 0 ml IV STAT PRN; Protocol PRN Reason: Hyglycemia Protocol Meropenem 500 mg/ Sodium (Chloride) 100 mls @ 100 mls/hr IVPB Q8 [facility] Last Admin: 05/08/17 14:46 Dose: Not Given Linezolid (Zyvox 600mg/300ml D5w) 600 mg in 300 mls @ 200 mls/hr IVPB Q12H [facility] Last Admin: 05/08/17 11:00 Dose: 200 mls/hr Fluconazole (Diflucan Iv 100 Mg/50 Ml Ns) 50 mls @ 100 mls/hr IVPB Q24H [facility] Last Admin: 05/08/17 11:57 Dose: 100 mls/hr Dextrose/Sodium Chloride (Dextrose 5%/0.45% Ns 1000 Ml) 1,000 mls @ 80 mls/hr IV .[id number] [facility] Last Admin: 05/08/17 15:00 Dose: Not Given Dextrose (Dextrose 5% In Water 1000 Ml) 1,000 mls @ 0 mls/hr IV .Q0M PRN; Protocol; Per Protocol PRN Reason: Hypoglycemia Protocol Insulin Human Regular (Novolin R) 0 unit SC ACHS [facility] PRN Reason: Protocol Last Admin: 05/08/17 16:30 Dose: Not Given Methylprednisolone (Solu-Medrol) 40 mg IVP Q6 [facility] Last Admin: 05/08/17 12:01 Dose: 40 mg Morphine Sulfate (Morphine) 2 mg IVP Q4 PRN PRN Reason: Pain, moderate (4-7) - Labs Labs: 05/08/17 11:39 05/08/17 07:55 PT 25.4 SECONDS (9.7-12.2) H 05/03/17 13:35 INR 2.2 05/03/17 13:35 APTT 40 SECONDS (21-34) H 05/03/17 13:35 - Constitutional Appears: Toxic, Chronically Ill - Head Exam Head Exam: NORMOCEPHALIC - Eye Exam Eye Exam: PERRL - ENT Exam ENT Exam: Mucous Membranes Dry - Neck Exam Neck Exam: absent: Lymphadenopathy - Respiratory Exam Respiratory Exam: Decreased Breath Sounds - Cardiovascular Exam Cardiovascular Exam: REGULAR RHYTHM - GI/Abdominal Exam GI & Abdominal Exam: Distended, Soft - Rectal Exam Rectal Exam: Deferred - Exam Exam: NORMAL INSPECTION Assessment and Plan (1) CHF (congestive heart failure) Status: Acute (2) Dyspnea Status: Acute (3) Elevated troponin Status: Acute (4) Fever Status: Acute (5) Pneumonia Status: Acute (6) Sepsis Status: Acute (7) SUZANNE (acute kidney injury) Status: Acute (8) Anasarca Status: Acute (9) HIV antibody positive Status: Acute (10) Hypokalemia Status: Acute (11) Lung cancer Status: Acute (12) CARMELA (obstructive sleep apnea) Status: Acute (13) Obstructive uropathy Status: Acute (14) Pancytopenia Status: Acute (15) Prophylactic measure Status: Acute (16) Thrombocytopenia Status: Acute (17) UTI (urinary tract infection) Status: Acute - Assessment and Plan (Free Text) Assessment: VRE sepsis resp failure pneumonia HIV ESRD for HD cont IV and PO rx
--- NOTE | 2017-05-08 20:17 | OP ---
PROCEDURE DATE: 05/08/2017 PREOPERATIVE DIAGNOSIS: Renal failure. POSTOPERATIVE DIAGNOSIS: Renal failure. PROCEDURE CARRIED OUT: Removal of Port-A-Cath, right jugular vein and placement of PermCath, right jugular vein. SURGEON: Javid Jacobs Jr., MD SCHEDULE HANGER: Dr. Ojeda. ANESTHESIOLOGIST: Dr. Castle. The patient is an older middle-aged male with renal insufficiency as well as strange mental state, who requires dialysis. No relatives are available for consent. OPERATING FINDINGS: Initially, the patient had an indwelling Port-A-Cath on the right side. Initially, we attempted to go via the subclavian vein. This, however, was not in communication with the central vein or innominate vein and has been demonstrated on angiography. We subsequently took an old Port-A-Cath that he had in this area, cut down on it, removed the port, placed a wire through the catheter part of it and then deployed it into the superior vena cava with excellent return of flow after tunneling it. The catheter was then brought out on the chest wall, secured to the skin with sutures and was a a tunneled catheter originating in the right jugular vein and terminating in the superior vena cava, right atrial region, so the operation carried out; removal of Port-A-Cath and placement of PermCath, right jugular vein. Javid aJcobs Jr., MD
[2017-05-09] MEDS: MethylPREDNISolone 40 mg Vial IVP SCH ×4 (00:20→19:04)
[2017-05-09] MEDS: Dextrose 5%/0.45% NS 1,000 ML IV SCH (03:30)
[2017-05-09] MEDS: Meropenem 500 MG in Sodium Chloride 0.9% 100 ML IVPB SCH ×3 (05:19→21:11)
[2017-05-09] MEDS: (Novolin R) Insulin Human Regular 100 units/ml vial SC SCH ×4 (08:27→22:50)
--- NOTE | 2017-05-09 09:48 | RAD ---
PROCEDURE: Intraoperative Fluoroscopy. HISTORY: RENAL FAILURE FINDINGS: Fluoroscopic assistance was provided for right-sided dialysis catheter placement. Please refer to the operative report from
[2017-05-09] MEDS ORDERED: Pneumococcal 23-Valent Vaccine IM ONE (10:00)
[2017-05-09] MEDS ORDERED: Influenza Vaccine 60 mcg/0.5 mL SYR (4YR UP) IM ONE (10:00)
[2017-05-09 10:18] LABS: BASO % 0.1 % (0.0-2.0); HEMATOCRIT 25.3 % (35.0-51.0); LYMPH # 0.3 K/uL (1.0-4.3); LYMPH % 4.3 % (20.0-40.0); MEAN CELL VOLUME 87.3 fL (80.0-94.0); MEAN CORPUSCULAR HEMOGLOBIN 28.5 pg (27.0-31.0); MEAN CORPUSCULAR HGB CONC 32.6 g/dL (33.0-37.0); MEAN PLATELET VOLUME 8.1 fL (7.2-11.7); MONO # 0.1 K/uL (0.0-0.8); MONO % 1.4 % (0.0-10.0); NRBC % 0.3 % (0.0-2.0); PLATELET COUNT 81 K/uL (130-400); RED CELL DISTRIBUTION WIDTH 21.6 % (11.5-14.5); WHITE BLOOD COUNT 6.2 K/uL (4.8-10.8)
[2017-05-09 10:33] LABS: POTASSIUM 4.3 mmol/L (3.6-5.2)
[2017-05-09 10:35] LABS: ALB/GLOB RATIO 0.7 (1.0-2.1); BILIRUBIN,TOTAL 0.6 mg/dL (0.2-1.3)
[2017-05-09 10:36] LABS: CALCIUM 6.9 mg/dl (8.6-10.4); MAGNESIUM 1.6 mg/dL (1.6-2.3); PHOSPHOROUS 7.5 mg/dL (2.5-4.5)
[2017-05-09 10:51] LABS: NEUTROPHIL 94 % (50-75); TOTAL CELLS COUNTED 100
--- NOTE | 2017-05-09 10:59 | CP.PCM.PN ---
Subjective - Date & Time of Evaluation Date of Evaluation: 05/09/17 Time of Evaluation: 10:57 - Subjective Subjective: On dialysis now- trying to UF 500-1000ml Same confusion, sluggish mental status Hg low- cannot give ESAs due to h/o lung CA Objective - Vital Signs/Intake and Output Vital Signs (last 24 hours): Temp Pulse Resp BP Pulse Ox 97.5 F L 67 27 H 137/69 99 05/09/17 09:15 05/09/17 10:25 05/09/17 10:25 05/09/17 10:25 05/09/17 10:25 Intake and Output: 05/09/17 05/09/17 06:59 18:59 Intake Total 660 Output Total 100 Balance 560 - Medications Medications: Current Medications Acetaminophen (Tylenol 650 Mg Supp) 650 mg [place] Q6 PRN PRN Reason: Temperature > 100.4 F Dextrose (Dextrose 50% Inj) 0 ml IV STAT PRN; Protocol PRN Reason: Hyglycemia Protocol Meropenem 500 mg/ Sodium (Chloride) 100 mls @ 100 mls/hr IVPB Q8 [facility] Last Admin: 05/09/17 05:19 Dose: 100 mls/hr Linezolid (Zyvox 600mg/300ml D5w) 600 mg in 300 mls @ 200 mls/hr IVPB Q12H [facility] Last Admin: 05/08/17 22:16 Dose: 200 mls/hr Fluconazole (Diflucan Iv 100 Mg/50 Ml Ns) 50 mls @ 100 mls/hr IVPB Q24H [facility] Last Admin: 05/08/17 11:57 Dose: 100 mls/hr Dextrose/Sodium Chloride (Dextrose 5%/0.45% Ns 1000 Ml) 1,000 mls @ 80 mls/hr IV .[id number] [facility] Last Admin: 05/09/17 03:30 Dose: Not Given Dextrose (Dextrose 5% In Water 1000 Ml) 1,000 mls @ 0 mls/hr IV .Q0M PRN; Protocol; Per Protocol PRN Reason: Hypoglycemia Protocol Insulin Human Regular (Novolin R) 0 unit SC ACHS [facility] PRN Reason: Protocol Last Admin: 05/09/17 08:27 Dose: 1 unit Methylprednisolone (Solu-Medrol) 40 mg IVP Q6 [facility] Last Admin: 05/09/17 05:19 Dose: 40 mg Morphine Sulfate (Morphine) 2 mg IVP Q4 PRN PRN Reason: Pain, moderate (4-7) - Labs Labs: 05/09/17 10:08 05/09/17 10:08 PT 25.4 SECONDS (9.7-12.2) H 05/03/17 13:35 INR 2.2 05/03/17 13:35 APTT 40 SECONDS (21-34) H 05/03/17 13:35 - Constitutional Appears: No Acute Distress, Confused, Chronically Ill - Head Exam Head Exam: ATRAUMATIC, NORMAL INSPECTION - Eye Exam Eye Exam: EOMI, Normal appearance - Neck Exam Neck Exam: Normal Inspection. absent: Tenderness - Respiratory Exam Respiratory Exam: Clear to Ausculation Bilateral, Respiratory Distress - Cardiovascular Exam Cardiovascular Exam: REGULAR RHYTHM, +S1 - GI/Abdominal Exam GI & Abdominal Exam: Soft. absent: Tenderness - Extremities Exam Extremities Exam: Normal Inspection. absent: Tenderness - Neurological Exam Neurological Exam: Altered, CN II-XII Intact - Skin Skin Exam: Dry, Warm Assessment and Plan (1) HIV (human immunodeficiency virus infection) Status: Acute (2) Altered mental state Status: Acute (3) SUZANNE (acute kidney injury) Status: Acute (4) VRE bacteremia Status: Acute - Assessment and Plan (Free Text) Plan: Dialysis TTS via permcath Blood transfusions as needed
[2017-05-09] MEDS: Linezolid 600 mg in D5W 300 ml 600 MG/300 ML BAG IVPB SCH ×2 (11:34→22:27)
[2017-05-09] MEDS: Fluconazole IV 100mg/50 ml NS 50 ML IVPB SCH (12:14)
--- NOTE | 2017-05-09 13:58 | CP.PCM.PN ---
Subjective - Date & Time of Evaluation Date of Evaluation: 05/09/17 Time of Evaluation: 13:55 - Subjective Subjective: Surgery: Dr. Jacobs Pt seen and examined. Getting dialysis when seen. Per nursing no acute events overnight and permacath is functioning well. Objective - Vital Signs/Intake and Output Vital Signs (last 24 hours): Temp Pulse Resp BP Pulse Ox 97.4 F L 65 20 133/80 100 05/09/17 12:25 05/09/17 12:25 05/09/17 11:25 05/09/17 12:25 05/09/17 12:25 Intake and Output: 05/09/17 05/09/17 06:59 18:59 Intake Total 660 Output Total 100 Balance 560 - Medications Medications: Current Medications Acetaminophen (Tylenol 650 Mg Supp) 650 mg [place] Q6 PRN PRN Reason: Temperature > 100.4 F Dextrose (Dextrose 50% Inj) 0 ml IV STAT PRN; Protocol PRN Reason: Hyglycemia Protocol Meropenem 500 mg/ Sodium (Chloride) 100 mls @ 100 mls/hr IVPB Q8 [facility] Last Admin: 05/09/17 13:37 Dose: 100 mls/hr Linezolid (Zyvox 600mg/300ml D5w) 600 mg in 300 mls @ 200 mls/hr IVPB Q12H [facility] Last Admin: 05/09/17 11:34 Dose: Not Given Fluconazole (Diflucan Iv 100 Mg/50 Ml Ns) 50 mls @ 100 mls/hr IVPB Q24H [facility] Last Admin: 05/09/17 12:14 Dose: Not Given Dextrose/Sodium Chloride (Dextrose 5%/0.45% Ns 1000 Ml) 1,000 mls @ 80 mls/hr IV .[id number] [facility] Last Admin: 05/09/17 03:30 Dose: Not Given Dextrose (Dextrose 5% In Water 1000 Ml) 1,000 mls @ 0 mls/hr IV .Q0M PRN; Protocol; Per Protocol PRN Reason: Hypoglycemia Protocol Insulin Human Regular (Novolin R) 0 unit [place] ACHS [facility] PRN Reason: Protocol Last Admin: 05/09/17 11:34 Dose: Not Given Methylprednisolone (Solu-Medrol) 40 mg IVP Q6 [facility] Last Admin: 05/09/17 12:12 Dose: Not Given Morphine Sulfate (Morphine) 2 mg IVP Q4 PRN PRN Reason: Pain, moderate (4-7) - Labs Labs: 05/09/17 10:08 05/09/17 10:08 PT 25.4 SECONDS (9.7-12.2) H 05/03/17 13:35 INR 2.2 05/03/17 13:35 APTT 40 SECONDS (21-34) H 05/03/17 13:35 - Constitutional Appears: Older Than Stated Age, Chronically Ill - Head Exam Head Exam: ATRAUMATIC, NORMOCEPHALIC - Eye Exam Eye Exam: EOMI - ENT Exam ENT Exam: Mucous Membranes Dry - Neck Exam Additional comments: R IJ permacath in place, no hematoma - Respiratory Exam Respiratory Exam: NORMAL BREATHING PATTERN. absent: Accessory Muscle Use, Respiratory Distress - GI/Abdominal Exam GI & Abdominal Exam: Soft. absent: Tenderness - Neurological Exam Neurological Exam: Alert, Awake. absent: Oriented x3 Assessment and Plan - Assessment and Plan (Free Text) Assessment: 66M w. SUZANNE, s/p R IJ permacath, POD#1 -no further plans for surgical intervention at this time -d/w attending Tiffanyitis PGY3
--- NOTE | 2017-05-09 16:23 | CP.PCM.PN ---
Subjective - Date & Time of Evaluation Date of Evaluation: 05/09/17 Time of Evaluation: 10:00 - Subjective Subjective: Dr. Stanley note: Patient is seen and examined in room. Patient is non verbal but is responding to my voice and obeys my commands. I saw patient after dialysis was preformed today and he seemed more responsive though he still has plus 2 pitting edma Called patient's sister to give her an update on his condition, she mentioned he was diagnosed with cancer 3 years ago and underwent chemo therapy a few times. Objective - Vital Signs/Intake and Output Vital Signs (last 24 hours): Temp Pulse Resp BP Pulse Ox 97.4 F L 65 20 133/80 100 05/09/17 12:25 05/09/17 14:32 05/09/17 11:25 05/09/17 12:25 05/09/17 12:25 Intake and Output: 05/09/17 05/09/17 06:59 18:59 Intake Total 660 390 Output Total 100 200 Balance 560 190 - Medications Medications: Current Medications Acetaminophen (Tylenol 650 Mg Supp) 650 mg [place] Q6 PRN PRN Reason: Temperature > 100.4 F Meropenem 500 mg/ Sodium (Chloride) 100 mls @ 100 mls/hr IVPB Q8 [facility] Last Admin: 05/09/17 13:37 Dose: 100 mls/hr Linezolid (Zyvox 600mg/300ml D5w) 600 mg in 300 mls @ 200 mls/hr IVPB Q12H [facility] Last Admin: 05/09/17 11:34 Dose: Not Given Fluconazole (Diflucan Iv 100 Mg/50 Ml Ns) 50 mls @ 100 mls/hr IVPB Q24H [facility] Last Admin: 05/09/17 12:14 Dose: Not Given Dextrose/Sodium Chloride (Dextrose 5%/0.45% Ns 1000 Ml) 1,000 mls @ 80 mls/hr IV .[id number] [facility] Last Admin: 05/09/17 03:30 Dose: Not Given Insulin Human Regular (Novolin R) 0 unit SC ACHS [facility] PRN Reason: Protocol Last Admin: 05/09/17 11:34 Dose: Not Given Methylprednisolone (Solu-Medrol) 40 mg IVP Q6 [facility] Last Admin: 05/09/17 12:12 Dose: Not Given Morphine Sulfate (Morphine) 2 mg IVP Q4 PRN PRN Reason: Pain, moderate (4-7) - Labs Labs: 05/09/17 10:08 05/09/17 10:08 PT 25.4 SECONDS (9.7-12.2) H 05/03/17 13:35 INR 2.2 05/03/17 13:35 APTT 40 SECONDS (21-34) H 05/03/17 13:35 - Constitutional Appears: In Acute Distress - Eye Exam Eye Exam: Normal appearance, PERRL - Respiratory Exam Respiratory Exam: Decreased Breath Sounds, Rales. absent: Clear to Ausculation Bilateral, Rhonchi, Wheezes - Cardiovascular Exam Cardiovascular Exam: REGULAR RHYTHM, RRR, +S1, +S2. absent: Gallop, Rubs - GI/Abdominal Exam GI & Abdominal Exam: Soft, Normal Bowel Sounds. absent: Tenderness - Extremities Exam Extremities Exam: Pedal Edema. absent: Normal Inspection - Neurological Exam Neurological Exam: Alert, Awake - Skin Skin Exam: Pallor, Warm Assessment and Plan - Assessment and Plan (Free Text) Assessment: Sepsis-Baceremia 05/09: Still on IV Linozolid and Merripenom, BPAP for support. 05/08: Patient is still on IV Linozolid and Merripenon, continue BIPAP for support 05/07: Patient is on Linozolid and Merripenom, Dr. La consulted, also on Diflucan for UTI as well. Admit to [facility] Criteria no longer met, but on admission (Temp, Tachy, WBC) Secondary to pneumonia or UTI Blood culture (05/03/17): Gram positive cocci- VRE x 1 (anaerobic positive only) ; no growth x 1 (aerobic bottle) Positive UA Urine Cx: Yeast Dr. La, help appreciated Contact Isolation for VRE Merrem 500mg IV Q8H [facility] Vancomycin ONCE Diflucan 100mg IV Q24H Zyvox 600mg IV Q12H Tylenol 650mg ME Q6H PRN Pneumonia 05/09: Follow up read on repeat CXR 05/07: Could be the source of his bacteremia, will continue with IV antibiotics and bipap for support, patient is DNR/DNI CXR (05/03/17): Patchy b/l mid to lower lobe infiltrates. Cardiomegaly. (see full report) Dr. La, help appreciated Merrem 500mg IV Q8H B[facility]NE -Vancomycin ONCE Zyvox 600mg IV Q12H Solumedrol 40mg IV Q6H Duoneb Q6H [facility] Bipap PRN Renal Failure 05/09: Patient went for dialysis today, had to staff his IV fluids because patient has become a little fluid overloaded, plus 2 pitting edma. He is more responsive. 05/08: Permacath today, follow up with nephro about possible dialysis. 05/07: IV fluids, patient needs permacath for dialysis per nephrology consult. He still has no urine output an his creatine is now 3.7, he will most likely need dialysis, 2 physician consent in the chart. Dr. Domínguez, help appreciated - f/u urine lytes, renal/bladder US - recommend trial fluids IV - IV antibiotics UTI 05/09: Will need to follow up with ID reccs. 05/08: continue IV Fluconazole. 05/07: on IV fluconazole. Hx of indwelling catheter, urinary retention UA (05/03/17): 3+ LE, WBC 16, few bacteria, Many yeast - f/u repeat UA Urinary culture: Yeast Dr. La, help appreciated - Fluconazole HISTORY OF CANCER? 05/09: Have decided to do a PSA for tomorrow's labs. CHF, ejection fraction preserved 05/09: Stopped IV fluids. 05/08: continue gentle IV fluids. 05/07: Need to be careful with IV fluids, however for now patient is NPO ECHO (02/26/17): EF 62%, mild tricuspid regurgitation, moderate pulm HTN, Mitral annular calcification, Right atrium dilated, Left atrium borderline dilated Hold home lasix BNP 24,000 on admission Anemia 05/09: Hbg is 8.3 05/08: Hbg is 7.5, continue to monitor. 05/07: Hbg 8.5, stable 7.8 on admission labs (05/04/17) - f/u AM labs HIV 05/07: HIV medication on hold for now, follow up with ID on when to start them. Pt on home Truvada 200/300mg, Raltegravir 400mg PO BID, Bactrim DS Will f/u with ID if clear to restart Type Two Diabetes Mellitus - Chronic 05/09: Most likely need to start PPN because patient cannot tolerate any PO intake. 05/07: poorly controlled. RISS with accuchecks Sugars poorly controlled RISS COPD -Chronic 05/07: continue current supportive treatment patient is DNR/DNI Secondary to pneumonia, history of COPD Solumedrol 40mg IV Q6H Duoneb Q6H [facility] Bipap PRN ESacral Ulcer 05/07: wound care, help appreciated, turn patient q2H Wound care, consulted, help appreciated - f/u reccs History of BPH Tamsulosin 0.4mg PO daily End of Life Goals 05/08: DNR/DNi post poned for surgery. 05/07: patient is still DNR/DNI, see Pulse document in the chart
--- NOTE | 2017-05-09 18:54 | CP.PCM.PN ---
Subjective - Date & Time of Evaluation Date of Evaluation: 05/09/17 Time of Evaluation: 10:00 - Subjective Subjective: afeb iv rx renewed await repeat cultures cont HD supportive rx Objective - Vital Signs/Intake and Output Vital Signs (last 24 hours): Temp Pulse Resp BP Pulse Ox 97.6 F 80 18 92/54 L 96 05/09/17 15:27 05/09/17 15:27 05/09/17 15:27 05/09/17 15:27 05/09/17 15:27 Intake and Output: 05/09/17 05/09/17 06:59 18:59 Intake Total 660 390 Output Total 100 200 Balance 560 190 - Medications Medications: Current Medications Acetaminophen (Tylenol 650 Mg Supp) 650 mg [place] Q6 PRN PRN Reason: Temperature > 100.4 F Meropenem 500 mg/ Sodium (Chloride) 100 mls @ 100 mls/hr IVPB Q8 [facility] Last Admin: 05/09/17 13:37 Dose: 100 mls/hr Linezolid (Zyvox 600mg/300ml D5w) 600 mg in 300 mls @ 200 mls/hr IVPB Q12H [facility] Last Admin: 05/09/17 11:34 Dose: Not Given Fluconazole (Diflucan Iv 100 Mg/50 Ml Ns) 50 mls @ 100 mls/hr IVPB Q24H [facility] Last Admin: 05/09/17 12:14 Dose: Not Given Dextrose/Sodium Chloride (Dextrose 5%/0.45% Ns 1000 Ml) 1,000 mls @ 80 mls/hr IV .[id number] [facility] Last Admin: 05/09/17 03:30 Dose: Not Given Insulin Human Regular (Novolin R) 0 unit SC ACHS [facility] PRN Reason: Protocol Last Admin: 05/09/17 11:34 Dose: Not Given Methylprednisolone (Solu-Medrol) 40 mg IVP Q6 [facility] Last Admin: 05/09/17 12:12 Dose: Not Given Morphine Sulfate (Morphine) 2 mg IVP Q4 PRN PRN Reason: Pain, moderate (4-7) - Labs Labs: 05/09/17 10:08 05/09/17 10:08 PT 25.4 SECONDS (9.7-12.2) H 05/03/17 13:35 INR 2.2 05/03/17 13:35 APTT 40 SECONDS (21-34) H 05/03/17 13:35 - Constitutional Appears: Non-toxic, Confused, Chronically Ill - Head Exam Head Exam: NORMOCEPHALIC - Eye Exam Eye Exam: PERRL - ENT Exam ENT Exam: Mucous Membranes Dry - Neck Exam Neck Exam: absent: Lymphadenopathy - Respiratory Exam Respiratory Exam: Decreased Breath Sounds - Cardiovascular Exam Cardiovascular Exam: REGULAR RHYTHM - GI/Abdominal Exam GI & Abdominal Exam: Distended, Soft - Rectal Exam Rectal Exam: Deferred - Exam Exam: NORMAL INSPECTION - Extremities Exam Extremities Exam: Pedal Edema - Back Exam Back Exam: absent: CVA tenderness (L), CVA tenderness (R) - Neurological Exam Neurological Exam: Altered Assessment and Plan (1) CHF (congestive heart failure) Status: Acute (2) Dyspnea Status: Acute (3) Elevated troponin Status: Acute (4) Fever Status: Acute (5) Pneumonia Status: Acute (6) Sepsis Status: Acute (7) SUZANNE (acute kidney injury) Status: Acute (8) Anasarca Status: Acute (9) HIV antibody positive Status: Acute (10) Hypokalemia Status: Acute (11) Lung cancer Status: Acute (12) CARMELA (obstructive sleep apnea) Status: Acute (13) Obstructive uropathy Status: Acute (14) Pancytopenia Status: Acute (15) Prophylactic measure Status: Acute (16) Thrombocytopenia Status: Acute (17) UTI (urinary tract infection) Status: Acute - Assessment and Plan (Free Text) Assessment: cont iv antibiotics for sepsis / bacteremia/ pneumoniia consider echo/ALESSIA
[2017-05-10] MEDS: MethylPREDNISolone 40 mg Vial IVP SCH ×5 (00:30→23:54)
[2017-05-10] MEDS: Meropenem 500 MG in Sodium Chloride 0.9% 100 ML IVPB SCH ×3 (05:46→21:00)
--- NOTE | 2017-05-10 07:28 | CP.PCM.PN ---
Subjective - Date & Time of Evaluation Date of Evaluation: 05/10/17 Time of Evaluation: 07:25 - Subjective Subjective: PGY-[address] Stanley's Service: Pt seen and examined at bedside. Patient found resting comfortably on BIPAP machine. Patient is able to respond to questioning. He shakes his head no when asked if in any pain. First dialysis was yesterday, and he will be on T-Th-Sat schedule. Complete ROS unavailable due to pt condition. Objective - Vital Signs/Intake and Output Vital Signs (last 24 hours): Temp Pulse Resp BP Pulse Ox 97.4 F L 72 20 132/81 100 05/10/17 00:00 05/10/17 07:18 05/10/17 00:00 05/10/17 00:00 05/10/17 00:00 Intake and Output: 05/10/17 05/10/17 06:59 18:59 Intake Total 350 Output Total 150 Balance 200 - Medications Medications: Current Medications Acetaminophen (Tylenol 650 Mg Supp) 650 mg [place] Q6 PRN PRN Reason: Temperature > 100.4 F Meropenem 500 mg/ Sodium (Chloride) 100 mls @ 100 mls/hr IVPB Q8 [facility] Last Admin: 05/10/17 05:46 Dose: 100 mls/hr Linezolid (Zyvox 600mg/300ml D5w) 600 mg in 300 mls @ 200 mls/hr IVPB Q12H [facility] Last Admin: 05/09/17 22:27 Dose: 200 mls/hr Fluconazole (Diflucan Iv 100 Mg/50 Ml Ns) 50 mls @ 100 mls/hr IVPB Q24H [facility] Last Admin: 05/09/17 12:14 Dose: Not Given Dextrose/Sodium Chloride (Dextrose 5%/0.45% Ns 1000 Ml) 1,000 mls @ 80 mls/hr IV .[id number] [facility] Last Admin: 05/09/17 03:30 Dose: Not Given Insulin Human Regular (Novolin R) 0 unit SC ACHS [facility] PRN Reason: Protocol Last Admin: 05/09/17 22:50 Dose: Not Given Methylprednisolone (Solu-Medrol) 40 mg IVP Q6 [facility] Last Admin: 05/10/17 05:43 Dose: 40 mg Morphine Sulfate (Morphine) 2 mg IVP Q4 PRN PRN Reason: Pain, moderate (4-7) - Labs Labs: 05/09/17 10:08 05/09/17 10:08 PT 25.4 SECONDS (9.7-12.2) H 05/03/17 13:35 INR 2.2 05/03/17 13:35 APTT 40 SECONDS (21-34) H 05/03/17 13:35 - Additional Findings Additional findings: - Constitutional Appears: No Acute Distressm, Resting comfortably on bipap - Eye Exam Eye Exam: Normal appearance, PERRL - Respiratory Exam Respiratory Exam: Decreased Breath Sounds, Rales. absent: Clear to Ausculation Bilateral, Rhonchi, Wheezes - Cardiovascular Exam Cardiovascular Exam: REGULAR RHYTHM, RRR, +S1, +S2. absent: Gallop, Rubs - GI/Abdominal Exam GI & Abdominal Exam: Soft, Normal Bowel Sounds. absent: Tenderness - Extremities Exam Extremities Exam: Pedal Edema. absent: Normal Inspection - Neurological Exam Neurological Exam: Alert, Awake - Skin Skin Exam: Pallor, Warm Assessment and Plan - Assessment and Plan (Free Text) Plan: Sepsis-Baceremia 05/10: Still on IV Linezolid and Meropenem, BPAP for support. 05/08: Patient is still on IV Linozolid and Merripenon, continue BIPAP for support 05/07: Patient is on Linozolid and Merripenom, Dr. La consulted, also on Diflucan for UTI as well. Admit to [facility] Criteria no longer met, but on admission (Temp, Tachy, WBC) Secondary to pneumonia or UTI Blood culture (05/03/17): Gram positive cocci- VRE x 1 (anaerobic positive only) ; no growth x 1 (aerobic bottle) Positive UA Urine Cx: Yeast Dr. La, help appreciated Contact Isolation for VRE Merrem 500mg IV Q8H [facility] Vancomycin ONCE Diflucan 100mg IV Q24H Zyvox 600mg IV Q12H Tylenol 650mg [place] Q6H PRN Pneumonia CXR (05/03/17): Patchy b/l mid to lower lobe infiltrates. Cardiomegaly. (see full report) Dr. La, help appreciated - Repeat CXR (05/10/17) Stable CXR with borderline pulm vascular derangement and right pleural effusion as well as limited bilateral airspace disease appreciated once again (see full report) Could be the source of his bacteremia, will continue with IV antibiotics and bipap for support, patient is DNR/DNI Merrem 500mg IV Q8H [facility] -Vancomycin ONCE Zyvox 600mg IV Q12H Solumedrol 40mg IV Q6H Duoneb Q6H [facility] Bipap PRN Renal Failure Dr. Domínguez, help appreciated 05/10: Pt will be on --Sat schedule for dialysis 05/09: Patient went for dialysis today, had to stop his IV fluids because patient has become a little fluid overloaded, plus 2 pitting edema. He is more responsive. 05/08: Permacath today, follow up with nephro about possible dialysis. 05/07: IV fluids, patient needs permacath for dialysis per nephrology consult. He still has no urine output an his creatine is now 3.7, he will most likely need dialysis, 2 physician consent in the chart. UTI 05/09: Will need to follow up with ID reccs. 05/08: continue IV Fluconazole. 05/07: on IV fluconazole. Hx of indwelling catheter, urinary retention UA (05/03/17): 3+ LE, WBC 16, few bacteria, Many yeast Urinary culture: Yeast Dr. La, help appreciated - Fluconazole HISTORY OF CANCER? 05/09: Have decided to do a PSA for tomorrow's labs. CHF, ejection fraction preserved 05/09: Stopped IV fluids. 05/08: continue gentle IV fluids. 05/07: Need to be careful with IV fluids, however for now patient is NPO ECHO (02/26/17): EF 62%, mild tricuspid regurgitation, moderate pulm HTN, Mitral annular calcification, Right atrium dilated, Left atrium borderline dilated Hold home lasix BNP 24,000 on admission Anemia 05/09: Hbg is 8.3 05/08: Hbg is 7.5, continue to monitor. 05/07: Hbg 8.5, stable 7.8 on admission labs (05/04/17) - f/u AM labs HIV 05/10: HIV medications restarted. Pt on home Truvada 200/300mg, Raltegravir 400mg PO BID, Bactrim DS Will f/u with ID if clear to restart Type Two Diabetes Mellitus - Chronic 05/10: Started PPN. Will continue with accuchecks. Sugars poorly controlled RISS COPD -Chronic 05/07: continue current supportive treatment patient is DNR/DNI Secondary to pneumonia, history of COPD Solumedrol 40mg IV Q6H Duoneb Q6H [facility] Bipap PRN Sacral Ulcer 05/07: wound care, help appreciated, turn patient q2H Wound care, consulted, help appreciated - f/u reccs History of BPH Tamsulosin 0.4mg PO daily End of Life Goals 05/07: patient is still DNR/DNI, see POLST document in the chart Jose A Osullivan PGY-2 All medical management per Dr. Stanley
[2017-05-10] MEDS: (Novolin R) Insulin Human Regular 100 units/ml vial SC SCH ×4 (08:44→21:26)
--- NOTE | 2017-05-10 09:26 | RAD ---
HISTORY: pneumonia COMPARISON: Portable chest at 4:17. FINDINGS: Tunneled central venous dialysis catheter again evident. LUNGS: Taking differences in exposure and position into account, no interval change is appreciated in limited right basilar and lateral left airspace disease although diminishing linear atelectasis identified at the inferior left lung zone posterior to the heart. PLEURA: Limited right pleural effusion not excluded. None is clearly evident at the left. CARDIOVASCULAR: Cardiac silhouette is stable with borderline pulmonary vascular derangement evident. OSSEOUS STRUCTURES: No significant abnormalities. VISUALIZED UPPER ABDOMEN: Upper abdominal surgical clips again evident. OTHER FINDINGS: None. IMPRESSION: Stable chest radiograph with borderline pulmonary vascular derangement and right pleural effusion as well as limited bilateral airspace disease appreciated once again.
[2017-05-10] MEDS: Linezolid 600 mg in D5W 300 ml 600 MG/300 ML BAG IVPB SCH ×2 (11:29→22:23)
[2017-05-10] MEDS: Fluconazole IV 100mg/50 ml NS 50 ML IVPB SCH (13:14)
--- NOTE | 2017-05-10 13:26 | CP.PCM.PN ---
Subjective - Date & Time of Evaluation Date of Evaluation: 05/10/17 Time of Evaluation: 13:24 - Subjective Subjective: stable dialysis 05/09 same lethargic state remains on biPAP [id number] no new chemistries Objective - Vital Signs/Intake and Output Vital Signs (last 24 hours): Temp Pulse Resp BP Pulse Ox 97.5 F L 83 18 141/74 100 05/10/17 07:56 05/10/17 07:56 05/10/17 07:56 05/10/17 07:56 05/10/17 07:56 Intake and Output: 05/10/17 05/10/17 06:59 18:59 Intake Total 350 Output Total 150 Balance 200 - Medications Medications: Current Medications Acetaminophen (Tylenol 650 Mg Supp) 650 mg [place] Q6 PRN PRN Reason: Temperature > 100.4 F Meropenem 500 mg/ Sodium (Chloride) 100 mls @ 100 mls/hr IVPB Q8 [facility] Last Admin: 05/10/17 05:46 Dose: 100 mls/hr Linezolid (Zyvox 600mg/300ml D5w) 600 mg in 300 mls @ 200 mls/hr IVPB Q12H [facility] Last Admin: 05/10/17 11:29 Dose: 200 mls/hr Fluconazole (Diflucan Iv 100 Mg/50 Ml Ns) 50 mls @ 100 mls/hr IVPB Q24H [facility] Last Admin: 05/10/17 13:14 Dose: 100 mls/hr Dextrose/Sodium Chloride (Dextrose 5%/0.45% Ns 1000 Ml) 1,000 mls @ 80 mls/hr IV .[id number] [facility] Last Admin: 05/09/17 03:30 Dose: Not Given Insulin Human Regular (Novolin R) 0 unit SC ACHS B[facility]NE PRN Reason: Protocol Last Admin: 05/10/17 12:33 Dose: Not Given Methylprednisolone (Solu-Medrol) 40 mg IVP Q6 [facility] Last Admin: 05/10/17 11:25 Dose: 40 mg Morphine Sulfate (Morphine) 2 mg IVP Q4 PRN PRN Reason: Pain, moderate (4-7) - Labs Labs: 05/09/17 10:08 05/09/17 10:08 PT 25.4 SECONDS (9.7-12.2) H 05/03/17 13:35 INR 2.2 05/03/17 13:35 APTT 40 SECONDS (21-34) H 05/03/17 13:35 - Constitutional Appears: No Acute Distress, Confused, Chronically Ill - Head Exam Head Exam: ATRAUMATIC, NORMAL INSPECTION - Eye Exam Eye Exam: Normal appearance - Neck Exam Neck Exam: Normal Inspection. absent: Tenderness - Respiratory Exam Respiratory Exam: Decreased Breath Sounds, Respiratory Distress - Cardiovascular Exam Cardiovascular Exam: REGULAR RHYTHM, +S1 - GI/Abdominal Exam GI & Abdominal Exam: Soft. absent: Tenderness - Extremities Exam Extremities Exam: Pedal Edema, Tenderness - Neurological Exam Neurological Exam: Altered, Motor Sensory Deficit - Skin Skin Exam: Dry, Warm Assessment and Plan (1) HIV (human immunodeficiency virus infection) Status: Acute (2) Altered mental state Status: Acute (3) SUZANNE (acute kidney injury) Status: Acute (4) VRE bacteremia Status: Acute - Assessment and Plan (Free Text) Plan: IV ABs Dialysis TTS Repeat labs
--- NOTE | 2017-05-10 18:05 | CP.PCM.PN ---
Subjective - Date & Time of Evaluation Date of Evaluation: 05/10/17 Time of Evaluation: 10:00 - Subjective Subjective: weak/ bedridden on biap afebrile iv rx renewed HAART rx renewed with renal modifications Objective - Vital Signs/Intake and Output Vital Signs (last 24 hours): Temp Pulse Resp BP Pulse Ox 97.5 F L 65 13 137/68 100 05/10/17 16:00 05/10/17 16:00 05/10/17 16:00 05/10/17 16:00 05/10/17 16:00 Intake and Output: 05/10/17 05/10/17 06:59 18:59 Intake Total 350 Output Total 150 Balance 200 - Medications Medications: Current Medications Abacavir Sulfate (Ziagen) 300 mg PO BID [facility] Acetaminophen (Tylenol 650 Mg Supp) 650 mg [place] Q6 PRN PRN Reason: Temperature > 100.4 F Meropenem 500 mg/ Sodium (Chloride) 100 mls @ 100 mls/hr IVPB Q8 [facility] Last Admin: 05/10/17 15:10 Dose: 100 mls/hr Linezolid (Zyvox 600mg/300ml D5w) 600 mg in 300 mls @ 200 mls/hr IVPB Q12H [facility] Last Admin: 05/10/17 11:29 Dose: 200 mls/hr Fluconazole (Diflucan Iv 100 Mg/50 Ml Ns) 50 mls @ 100 mls/hr IVPB Q24H [facility] Last Admin: 05/10/17 13:14 Dose: 100 mls/hr Dextrose/Sodium Chloride (Dextrose 5%/0.45% Ns 1000 Ml) 1,000 mls @ 80 mls/hr IV .[id number] [facility] Last Admin: 05/09/17 03:30 Dose: Not Given Insulin Human Regular (Novolin R) 0 unit SC ACHS [facility] PRN Reason: Protocol Last Admin: 05/10/17 17:51 Dose: Not Given Lamivudine (Epivir) 50 mg PO DAILY [facility] Methylprednisolone (Solu-Medrol) 40 mg IVP Q6 [facility] Last Admin: 05/10/17 17:54 Dose: 40 mg Morphine Sulfate (Morphine) 2 mg IVP Q4 PRN PRN Reason: Pain, moderate (4-7) Raltegravir (Isentress) 400 mg PO BID [facility] - Labs Labs: 05/09/17 10:08 05/09/17 10:08 PT 25.4 SECONDS (9.7-12.2) H 05/03/17 13:35 INR 2.2 05/03/17 13:35 APTT 40 SECONDS (21-34) H 05/03/17 13:35 - Constitutional Appears: Non-toxic, Confused, Cachectic, Chronically Ill - Head Exam Head Exam: NORMOCEPHALIC - Eye Exam Eye Exam: PERRL. absent: Scleral icterus - ENT Exam ENT Exam: Mucous Membranes Dry - Neck Exam Neck Exam: absent: Lymphadenopathy - Respiratory Exam Respiratory Exam: Decreased Breath Sounds, Rhonchi - Cardiovascular Exam Cardiovascular Exam: REGULAR RHYTHM, +S1, +S2 - GI/Abdominal Exam GI & Abdominal Exam: Distended, Soft - Rectal Exam Rectal Exam: Deferred - Exam Exam: NORMAL INSPECTION - Extremities Exam Extremities Exam: absent: Calf Tenderness, Pedal Edema - Back Exam Back Exam: absent: CVA tenderness (L), CVA tenderness (R) - Neurological Exam Neurological Exam: Alert, Awake Assessment and Plan (1) CHF (congestive heart failure) Status: Acute (2) Dyspnea Status: Acute (3) Elevated troponin Status: Acute (4) Fever Status: Acute (5) Pneumonia Status: Acute (6) Sepsis Status: Acute (7) SUZANNE (acute kidney injury) Status: Acute (8) Anasarca Status: Acute (9) HIV antibody positive Status: Acute (10) Hypokalemia Status: Acute (11) Lung cancer Status: Acute (12) CARMELA (obstructive sleep apnea) Status: Acute (13) Obstructive uropathy Status: Acute (14) Pancytopenia Status: Acute (15) Prophylactic measure Status: Acute (16) Thrombocytopenia Status: Acute (17) UTI (urinary tract infection) Status: Acute
[2017-05-11] MEDS: Meropenem 500 MG in Sodium Chloride 0.9% 100 ML IVPB SCH ×3 (05:18→21:08)
[2017-05-11] MEDS: MethylPREDNISolone 40 mg Vial IVP SCH ×4 (05:18→23:42)
--- NOTE | 2017-05-11 09:57 | CP.PCM.PN ---
Subjective - Date & Time of Evaluation Date of Evaluation: 05/08/17 Time of Evaluation: 14:00 - Subjective Subjective: DURING ROUNDS TODAY IT WAS REQUESTED BY DIRECTOR GARY FOR DATA CENTER ARCHITECT TO ORDER HEP B CORE TOTAL AB, THE PT IS A NEW HD AND ESRD---HD FACILITIES WILL REQUIRE THIS LAB RESULTS FROM TO PT STARTING OP HD. THIS LAB IS A SEND OUT; DATA CENTER ARCHITECT COMPLETED DOWN TIME FORM AND DISCUSSED WITH PRIMARY ANNA LOZANO NEED FOR THE LAB TO COLLECT THIS TEST AND SEND OUT [facility]. ANNA LOZANO VERBALIZED UNDERSTANDING OF NEED FOR LAB TO BE DONE TODAY. NO FURTHER ORDERS. FURTHER ORDERS/MANAGEMENT PER DR. DE LA GARZA AND HIS CROP DUSTER. Objective - Vital Signs/Intake and Output Vital Signs (last 24 hours): Temp Pulse Resp BP Pulse Ox 97.3 F L 61 20 122/70 100 05/11/17 08:00 05/11/17 09:45 05/11/17 08:00 05/11/17 09:45 05/11/17 08:00 Intake and Output: 05/11/17 05/11/17 06:59 18:59 Intake Total 400 Output Total 200 Balance 200 - Medications Medications: Current Medications Abacavir Sulfate (Ziagen) 300 mg PO BID [facility] Acetaminophen (Tylenol 650 Mg Supp) 650 mg [place] Q6 PRN PRN Reason: Temperature > 100.4 F Meropenem 500 mg/ Sodium (Chloride) 100 mls @ 100 mls/hr IVPB Q8 [facility] Last Admin: 05/11/17 05:18 Dose: 100 mls/hr Linezolid (Zyvox 600mg/300ml D5w) 600 mg in 300 mls @ 200 mls/hr IVPB Q12H [facility] Last Admin: 05/10/17 22:23 Dose: 200 mls/hr Fluconazole (Diflucan Iv 100 Mg/50 Ml Ns) 50 mls @ 100 mls/hr IVPB Q24H [facility] Last Admin: 05/10/17 13:14 Dose: 100 mls/hr Dextrose/Sodium Chloride (Dextrose 5%/0.45% Ns 1000 Ml) 1,000 mls @ 80 mls/hr IV .[id number] [facility] Last Admin: 05/09/17 03:30 Dose: Not Given Insulin Human Regular (Novolin R) 0 unit SC ACHS [facility] PRN Reason: Protocol Last Admin: 05/10/17 21:26 Dose: Not Given Lamivudine (Epivir) 50 mg PO DAILY [facility] Methylprednisolone (Solu-Medrol) 40 mg IVP Q6 [facility] Last Admin: 05/11/17 05:18 Dose: 40 mg Morphine Sulfate (Morphine) 2 mg IVP Q4 PRN PRN Reason: Pain, moderate (4-7) Raltegravir (Isentress) 400 mg PO BID [facility] - Labs Labs: 05/09/17 10:08 05/09/17 10:08 PT 25.4 SECONDS (9.7-12.2) H 05/03/17 13:35 INR 2.2 05/03/17 13:35 APTT 40 SECONDS (21-34) H 05/03/17 13:35
[2017-05-11 10:28] LABS: POTASSIUM 3.4 mmol/L (3.6-5.2)
[2017-05-11 10:30] LABS: ALB/GLOB RATIO 0.8 (1.0-2.1); BILIRUBIN,TOTAL 0.6 mg/dL (0.2-1.3); TOTAL PROTEIN 5.3 g/dL (6.3-8.3)
[2017-05-11 10:31] LABS: CALCIUM 6.9 mg/dl (8.6-10.4); MAGNESIUM 1.5 mg/dL (1.6-2.3)
--- NOTE | 2017-05-11 12:47 | CP.PCM.PN ---
Subjective - Date & Time of Evaluation Date of Evaluation: 05/11/17 Time of Evaluation: 12:45 - Subjective Subjective: on bipap on HD, 2 kg uf tolerating unable to obtain ROS due to clinical condition Objective - Vital Signs/Intake and Output Vital Signs (last 24 hours): Temp Pulse Resp BP Pulse Ox 97.3 F L 74 20 99/62 L 100 05/11/17 08:00 05/11/17 12:15 05/11/17 08:00 05/11/17 12:15 05/11/17 08:00 Intake and Output: 05/11/17 05/11/17 06:59 18:59 Intake Total 400 Output Total 200 Balance 200 - Medications Medications: Current Medications Abacavir Sulfate (Ziagen) 300 mg PO BID [facility] Acetaminophen (Tylenol 650 Mg Supp) 650 mg RI Q6 PRN PRN Reason: Temperature > 100.4 F Meropenem 500 mg/ Sodium (Chloride) 100 mls @ 100 mls/hr IVPB Q8 [facility] Last Admin: 05/11/17 05:18 Dose: 100 mls/hr Linezolid (Zyvox 600mg/300ml D5w) 600 mg in 300 mls @ 200 mls/hr IVPB Q12H [facility] Last Admin: 05/10/17 22:23 Dose: 200 mls/hr Fluconazole (Diflucan Iv 100 Mg/50 Ml Ns) 50 mls @ 100 mls/hr IVPB Q24H [facility] Last Admin: 05/10/17 13:14 Dose: 100 mls/hr Dextrose/Sodium Chloride (Dextrose 5%/0.45% Ns 1000 Ml) 1,000 mls @ 80 mls/hr IV .[id number] [facility] Last Admin: 05/09/17 03:30 Dose: Not Given Insulin Human Regular (Novolin R) 0 unit SC ACHS [facility] PRN Reason: Protocol Last Admin: 05/10/17 21:26 Dose: Not Given Lamivudine (Epivir) 50 mg PO DAILY [facility] Methylprednisolone (Solu-Medrol) 40 mg IVP Q6 [facility] Last Admin: 05/11/17 05:18 Dose: 40 mg Morphine Sulfate (Morphine) 2 mg IVP Q4 PRN PRN Reason: Pain, moderate (4-7) Raltegravir (Isentress) 400 mg PO BID [facility] - Labs Labs: 05/09/17 10:08 05/11/17 09:58 PT 25.4 SECONDS (9.7-12.2) H 05/03/17 13:35 INR 2.2 05/03/17 13:35 APTT 40 SECONDS (21-34) H 05/03/17 13:35 - Constitutional Appears: Chronically Ill - Head Exam Additional comments: on bipap - Neck Exam Neck Exam: Full ROM. absent: Lymphadenopathy - Respiratory Exam Respiratory Exam: Decreased Breath Sounds. absent: Accessory Muscle Use - Cardiovascular Exam Cardiovascular Exam: REGULAR RHYTHM. absent: Rubs - GI/Abdominal Exam GI & Abdominal Exam: Distended - Extremities Exam Extremities Exam: Pedal Edema - Neurological Exam Neurological Exam: Awake Assessment and Plan - Assessment and Plan (Free Text) Assessment: new dialysis hiv respiratory failure ams continue to support with HD continue present care
[2017-05-11] MEDS: (Novolin R) Insulin Human Regular 100 units/ml vial SC SCH ×3 (14:03→22:45)
[2017-05-11] MEDS: Linezolid 600 mg in D5W 300 ml 600 MG/300 ML BAG IVPB SCH ×2 (14:04→23:42)
[2017-05-11] MEDS: Fluconazole IV 100mg/50 ml NS 50 ML IVPB SCH (14:11)
[2017-05-11 14:20] LABS: BASO % 0.2 % (0.0-2.0); EOS % 0.1 % (0.0-4.0); HEMATOCRIT 27.7 % (35.0-51.0); LYMPH # 0.2 K/uL (1.0-4.3); LYMPH % 2.8 % (20.0-40.0); MEAN CELL VOLUME 85.9 fL (80.0-94.0); MEAN CORPUSCULAR HEMOGLOBIN 28.2 pg (27.0-31.0); MEAN CORPUSCULAR HGB CONC 32.8 g/dL (33.0-37.0); MEAN PLATELET VOLUME 8.5 fL (7.2-11.7); MONO # 0.1 K/uL (0.0-0.8); MONO % 1.3 % (0.0-10.0); PLATELET COUNT 92 K/uL (130-400); RED CELL DISTRIBUTION WIDTH 20.4 % (11.5-14.5); WHITE BLOOD COUNT 8.2 K/uL (4.8-10.8)
[2017-05-11 14:51] LABS: NEUTROPHIL 97 % (50-75); TOTAL CELLS COUNTED 100
[2017-05-11] MEDS: LamiVUDine 10 mg/ml Syringe PO SCH (17:15)
[2017-05-12] MEDS: Meropenem 500 MG in Sodium Chloride 0.9% 100 ML IVPB SCH ×2 (06:22→14:06)
[2017-05-12] MEDS: MethylPREDNISolone 40 mg Vial IVP SCH ×3 (06:24→17:53)
[2017-05-12] MEDS: (Novolin R) Insulin Human Regular 100 units/ml vial SC SCH ×4 (08:00→21:07)
[2017-05-12] MEDS: LamiVUDine 10 mg/ml Syringe PO SCH (10:57)
[2017-05-12] MEDS: Linezolid 600 mg in D5W 300 ml 600 MG/300 ML BAG IVPB SCH ×2 (10:58→23:30)
[2017-05-12 12:11] LABS: BASO % 0.1 % (0.0-2.0); EOS % 0.1 % (0.0-4.0); HEMATOCRIT 26.4 % (35.0-51.0); LYMPH # 0.2 K/uL (1.0-4.3); LYMPH % 2.5 % (20.0-40.0); MEAN CELL VOLUME 84.9 fL (80.0-94.0); MEAN CORPUSCULAR HEMOGLOBIN 28.5 pg (27.0-31.0); MEAN CORPUSCULAR HGB CONC 33.6 g/dL (33.0-37.0); MEAN PLATELET VOLUME 7.6 fL (7.2-11.7); MONO # 0.1 K/uL (0.0-0.8); MONO % 1.2 % (0.0-10.0); PLATELET COUNT 91 K/uL (130-400); WHITE BLOOD COUNT 9.1 K/uL (4.8-10.8)
[2017-05-12 12:22] LABS: POTASSIUM 3.6 mmol/L (3.6-5.2)
[2017-05-12 12:24] LABS: ALB/GLOB RATIO 0.8 (1.0-2.1); BILIRUBIN,TOTAL 0.8 mg/dL (0.2-1.3); CALCIUM 7.4 mg/dl (8.6-10.4); TOTAL PROTEIN 5.7 g/dL (6.3-8.3)
[2017-05-12 12:25] LABS: MAGNESIUM 1.5 mg/dL (1.6-2.3)
[2017-05-12] MEDS: Fluconazole IV 100mg/50 ml NS 50 ML IVPB SCH (12:41)
[2017-05-12 13:43] LABS: NEUTROPHIL 97 % (50-75); TOTAL CELLS COUNTED 100
--- NOTE | 2017-05-12 17:33 | CP.PCM.PN ---
Subjective - Date & Time of Evaluation Date of Evaluation: 05/12/17 Time of Evaluation: 08:00 - Subjective Subjective: weak more responsive afebrile nad Objective - Vital Signs/Intake and Output Vital Signs (last 24 hours): Temp Pulse Resp BP Pulse Ox 97.4 F L 69 11 L 165/72 H 100 05/12/17 15:25 05/12/17 15:25 05/12/17 15:25 05/12/17 15:25 05/12/17 15:25 Intake and Output: 05/12/17 05/12/17 06:59 18:59 Intake Total 50 Output Total 150 Balance -100 - Medications Medications: Current Medications Abacavir Sulfate (Ziagen) 300 mg PO BID [facility] Last Admin: 05/12/17 10:58 Dose: 300 mg Acetaminophen (Tylenol 650 Mg Supp) 650 mg RI Q6 PRN PRN Reason: Temperature > 100.4 F Meropenem 500 mg/ Sodium (Chloride) 100 mls @ 100 mls/hr IVPB Q8 [facility] Last Admin: 05/12/17 14:06 Dose: 100 mls/hr Linezolid (Zyvox 600mg/300ml D5w) 600 mg in 300 mls @ 200 mls/hr IVPB Q12H [facility] Last Admin: 05/12/17 10:58 Dose: 200 mls/hr Fluconazole (Diflucan Iv 100 Mg/50 Ml Ns) 50 mls @ 100 mls/hr IVPB Q24H [facility] Last Admin: 05/12/17 12:41 Dose: 100 mls/hr Dextrose/Sodium Chloride (Dextrose 5%/0.45% Ns 1000 Ml) 1,000 mls @ 80 mls/hr IV .[id number] [facility] Last Admin: 05/09/17 03:30 Dose: Not Given Chromium/Copper/Manganese/Zinc (1 ml/ Amino Acids) 1,001 mls @ 60 mls/hr IV .[id number] [facility] Stop: 05/13/17 10:40 Chromium/Copper/Manganese/Zinc (1 ml/ Amino Acids) 1,001 mls @ 60 mls/hr IV .[id number] [facility] Stop: 05/13/17 17:59 Fat Emulsion Intravenous (Intralipid 20%) 250 mls @ 42 mls/hr IV QOD@1800 [facility] Insulin Human Regular (Novolin R) 0 unit SC ACHS [facility] PRN Reason: Protocol Last Admin: 05/12/17 12:30 Dose: Not Given Lamivudine (Epivir) 50 mg PO DAILY [facility] Last Admin: 05/12/17 10:57 Dose: 50 mg Methylprednisolone (Solu-Medrol) 40 mg IVP Q6 [facility] Last Admin: 05/12/17 12:43 Dose: 40 mg Raltegravir (Isentress) 400 mg PO BID [facility] Last Admin: 05/12/17 10:58 Dose: 400 mg - Labs Labs: 05/12/17 11:56 05/12/17 11:56 PT 25.4 SECONDS (9.7-12.2) H 05/03/17 13:35 INR 2.2 05/03/17 13:35 APTT 40 SECONDS (21-34) H 05/03/17 13:35 - Constitutional Appears: Non-toxic, Cachectic, Chronically Ill - Head Exam Head Exam: NORMOCEPHALIC - Eye Exam Eye Exam: PERRL - ENT Exam ENT Exam: Mucous Membranes Dry - Neck Exam Neck Exam: absent: Lymphadenopathy - Respiratory Exam Respiratory Exam: Decreased Breath Sounds - Cardiovascular Exam Cardiovascular Exam: REGULAR RHYTHM - GI/Abdominal Exam GI & Abdominal Exam: Distended, Soft - Rectal Exam Rectal Exam: Deferred - Exam Exam: NORMAL INSPECTION - Extremities Exam Extremities Exam: absent: Calf Tenderness, Pedal Edema - Back Exam Back Exam: absent: CVA tenderness (L), CVA tenderness (R) - Neurological Exam Neurological Exam: Alert, Awake, Oriented x3 - Psychiatric Exam Psychiatric exam: Normal Mood - Skin Skin Exam: Dry, Intact Assessment and Plan (1) CHF (congestive heart failure) Status: Acute (2) Dyspnea Status: Acute (3) Elevated troponin Status: Acute (4) Fever Status: Acute (5) Pneumonia Status: Acute (6) Sepsis Status: Acute (7) SUZANNE (acute kidney injury) Status: Acute (8) Anasarca Status: Acute (9) HIV antibody positive Status: Acute (10) Hypokalemia Status: Acute (11) Lung cancer Status: Acute (12) CARMELA (obstructive sleep apnea) Status: Acute (13) Obstructive uropathy Status: Acute (14) Pancytopenia Status: Acute (15) Prophylactic measure Status: Acute (16) Thrombocytopenia Status: Acute (17) UTI (urinary tract infection) Status: Acute
[2017-05-12] MEDS ORDERED: PPN#1 IV SCH (18:00)
[2017-05-12] MEDS: Fat Emulsion 20% IV 250 ML IV SCH (18:54)
--- NOTE | 2017-05-12 22:49 | CON ---
UROLOGY CONSULTATION DATE: 05/06/2017 REQUESTED BY: Michael Stanley MD REASON FOR CONSULTATION: Urinary tract infection. Indwelling Price catheter. HISTORY OF PRESENT ILLNESS: The patient is a 66-year-old male with urinary tract infection. The patient is in otherwise [id number] health. The patient was admitted to the hospital on 05/03/2017. He was transferred from the senior living for evaluation of dyspnea. The patient has history of COPD, diabetes, hypertension, and positive HIV. The patient had previous hospitalizations, was hospitalized in March for respiratory failure. The patient was admitted again with respiratory difficulty. He was also found to have anemia and azotemia. The patient was found to have pneumonia as well. The patient was found to have congestive heart failure with peripheral edema. The patient was also found to have an elevated troponin. The patient has had infectious disease care and consultation as well as hematology care and consultation. The patient's medications reviewed. The patient's lab data was reviewed as well. White blood count 7600, hematocrit 24, platelet count 93,000, BUN 40, creatinine 3.1, glucose 90. Chest x-ray reveals possible infiltrate. THE PATIENT HAS HISTORY OF ALLERGY TO PLAVIX AND TO SEA FOOD. The patient's medications include albuterol and ipratropium inhaler, meropenem antibiotic therapy, insulin, Solu-Medrol. PHYSICAL EXAMINATION: GENERAL: The patient is a well-developed elderly male. The patient is lethargic. He is lying in bed. He is able to respond to my conversation. ABDOMEN: Soft, moderately distended. Nontender. No mass or organomegaly. GENITALIA: The patient has marked edema of the penis and scrotum. Penis is concealed by the edematous foreskin as well as by the infrapubic fat. The patient has a Price catheter in place. The scrotum is also edematous. There is no scrotal tenderness or apparent epididymitis. The urine is cloudy via the Price catheter. IMPRESSION: Urinary retention. Indwelling Price catheter. Azotemia. Congestive heart failure. Chronic obstructive pulmonary disease with respiratory failure. Pneumonia. RECOMMENDATIONS AND PLAN: Continue antibiotic therapy as per Infectious Disease. Urinalysis and urine culture. Elevation of genitalia. Possible trial of void. Possible replacement of Price catheter. Further therapy to follow according to the patient's clinical course as well as results of above. I will also recommend obtaining a renal ultrasound to evaluate for possible post edema causes namely obstruction as cause for the patient's renal insufficiency. Thank you for recommending the patient for urology consultation. Bailey Paula MD
[2017-05-13] MEDS: MethylPREDNISolone 40 mg Vial IVP SCH ×4 (00:21→18:17)
--- NOTE | 2017-05-13 10:38 | PCM.URO ---
Urology Progress Note - General General: No Complaints - Subjective Abdominal Pain: No Flank Pain: No Nausea: No Vomiting: No Voiding Well: No Hematuria: No Dsypnea: Yes - Objective Lab Studies: Reviewed (azotemia) Lab Results Last 24 Hours: Laboratory Results - last 24 hr 05/12/17 05/12/17 05/12/17 06:40 11:30 11:56 WBC RBC Hgb Hct MCV MCH MCHC RDW Plt Count MPV Neut % (Auto) Lymph % (Auto) Archer % (Auto) Eos % (Auto) Baso % (Auto) Neut # Lymph # Archer # Eos # Baso # Neutrophils % (Manual) Lymphocytes % (Manual) Monocytes % (Manual) Platelet Estimate Poikilocytosis (manual Anisocytosis (manual) Ovalocytes Schistocytes Sodium 130 L Potassium 3.6 Chloride 98 Carbon Dioxide 23 Anion Gap 13 BUN 37 H Creatinine 2.3 H Est GFR ( Amer) 35 Est GFR (Non-Af Amer) 29 POC Glucose (mg/dL) 211 H 214 H Random Glucose 141 H Calcium 7.4 L Magnesium 1.5 L Total Bilirubin 0.8 AST 43 ALT 32 Alkaline Phosphatase 281 H Total Protein 5.7 L Albumin 2.5 L Globulin 3.2 Albumin/Globulin Ratio 0.8 L 05/12/17 05/12/17 05/12/17 11:56 16:12 21:05 WBC 9.1 RBC 3.11 L Hgb 8.9 L Hct 26.4 L MCV 84.9 MCH 28.5 MCHC 33.6 RDW 20.0 H Plt Count 91 L MPV 7.6 Neut % (Auto) 96.1 H Lymph % (Auto) 2.5 L Archer % (Auto) 1.2 Eos % (Auto) 0.1 Baso % (Auto) 0.1 Neut # 8.8 H Lymph # 0.2 L Archer # 0.1 Eos # 0.0 Baso # 0.0 Neutrophils % (Manual) 97 H Lymphocytes % (Manual) 2 L Monocytes % (Manual) 1 Platelet Estimate Decreased L Poikilocytosis (manual Slight Anisocytosis (manual) Moderate Ovalocytes Slight Schistocytes Slight Sodium Potassium Chloride Carbon Dioxide Anion Gap BUN Creatinine Est GFR ( Amer) Est GFR (Non-Af Amer) POC Glucose (mg/dL) 191 H 215 H Random Glucose Calcium Magnesium Total Bilirubin AST ALT Alkaline Phosphatase Total Protein Albumin Globulin Albumin/Globulin Ratio 05/13/17 06:27 WBC RBC Hgb Hct MCV MCH MCHC RDW Plt Count MPV Neut % (Auto) Lymph % (Auto) Archer % (Auto) Eos % (Auto) Baso % (Auto) Neut # Lymph # Archer # Eos # Baso # Neutrophils % (Manual) Lymphocytes % (Manual) Monocytes % (Manual) Platelet Estimate Poikilocytosis (manual Anisocytosis (manual) Ovalocytes Schistocytes Sodium Potassium Chloride Carbon Dioxide Anion Gap BUN Creatinine Est GFR ( Amer) Est GFR (Non-Af Amer) POC Glucose (mg/dL) 289 H Random Glucose Calcium Magnesium Total Bilirubin AST ALT Alkaline Phosphatase Total Protein Albumin Globulin Albumin/Globulin Ratio Intake & Output: Intake & Output 05/12/17 05/13/17 05/13/17 18:59 06:59 18:59 Intake Total 500 528 Output Total 200 475 Balance 300 53 Weight 200 lb 6.4 oz Intake: Intake, IV Amount 400 Left Hand 400 Oral 100 120 TPN/PPN 240 Lipid 168 Output: Urine 200 475 Urethral (Price) 200 475 Other: # Bowel Movements 1 Vital Signs: Vital Signs - 24 hr 05/12/17 05/12/17 05/12/17 15:25 17:00 20:05 Temperature 97.4 F L Pulse Rate 69 67 74 Respiratory 11 L Rate Blood Pressure 165/72 H O2 Sat by Pulse 100 Oximetry 05/12/17 05/13/17 05/13/17 23:29 01:15 08:00 Temperature 97.3 F L Pulse Rate 78 81 71 Respiratory 20 Rate Blood Pressure 149/78 O2 Sat by Pulse 94 L Oximetry 05/13/17 08:41 Temperature 97.3 F L Pulse Rate 76 Respiratory 20 Rate Blood Pressure 148/77 O2 Sat by Pulse 98 Oximetry Imaging Studies: Reviewed - Physical Exam Abdominal Exam: Soft, Non-Tender. absent: Non-Distended Genitalia: Without Inflammation (marked edema concealed glans) Urine Color: Clear, Yellow Extremities: Lower Extremity Edema: Bilateral - Male Phallus: Uncircumcised Scrotum: Edema (Imp: chf copd retention ckd rec: catheter in place)
[2017-05-13] MEDS ORDERED: PPN#2 IV SCH (10:41)
[2017-05-13] MEDS: (Novolin R) Insulin Human Regular 100 units/ml vial SC SCH ×4 (11:00→21:40)
[2017-05-13] MEDS: Linezolid 600 mg in D5W 300 ml 600 MG/300 ML BAG IVPB SCH (11:00)
[2017-05-13] MEDS: LamiVUDine 10 mg/ml Syringe PO SCH (11:00)
--- NOTE | 2017-05-13 11:57 | CP.PCM.PN ---
Subjective - Date & Time of Evaluation Date of Evaluation: 05/13/17 Time of Evaluation: 11:55 - Subjective Subjective: More alert Last dialysis 05/11- tolerating ok ? eating Hg better now Objective - Vital Signs/Intake and Output Vital Signs (last 24 hours): Temp Pulse Resp BP Pulse Ox 97.3 F L 76 20 148/77 98 05/13/17 08:41 05/13/17 08:41 05/13/17 08:41 05/13/17 08:41 05/13/17 08:41 Intake and Output: 05/13/17 05/13/17 06:59 18:59 Intake Total 528 Output Total 475 Balance 53 - Medications Medications: Current Medications Abacavir Sulfate (Ziagen) 300 mg PO BID [facility] Last Admin: 05/13/17 11:00 Dose: 300 mg Acetaminophen (Tylenol 650 Mg Supp) 650 mg [place] Q6 PRN PRN Reason: Temperature > 100.4 F Linezolid (Zyvox 600mg/300ml D5w) 600 mg in 300 mls @ 200 mls/hr IVPB Q12H [facility] Last Admin: 05/13/17 11:00 Dose: 200 mls/hr Fluconazole (Diflucan Iv 100 Mg/50 Ml Ns) 50 mls @ 100 mls/hr IVPB Q24H [facility] Last Admin: 05/12/17 12:41 Dose: 100 mls/hr Dextrose/Sodium Chloride (Dextrose 5%/0.45% Ns 1000 Ml) 1,000 mls @ 80 mls/hr IV .[id number] [facility] Last Admin: 05/09/17 03:30 Dose: Not Given Chromium/Copper/Manganese/Zinc (1 ml/ Amino Acids) 1,001 mls @ 60 mls/hr IV .[id number] [facility] Stop: 05/13/17 17:59 Last Admin: 05/13/17 11:23 Dose: 60 mls/hr Fat Emulsion Intravenous (Intralipid 20%) 250 mls @ 42 mls/hr IV QOD@1800 [facility] Last Admin: 05/12/17 18:54 Dose: 42 mls/hr Chromium/Copper/Manganese/Zinc 1 ml/ Multivitamins/Vitamin C 10 ml/ Amino Acids 1,011 mls @ 60 mls/hr IV .[id number] [facility] Stop: 05/14/17 10:50 Chromium/Copper/Manganese/Zinc (1 ml/ Amino Acids) 1,001 mls @ 60 mls/hr IV .[id number] [facility] Stop: 05/14/17 17:59 Insulin Human Regular (Novolin R) 0 unit SC ACHS [facility] PRN Reason: Protocol Last Admin: 05/13/17 11:00 Dose: 3 unit Lamivudine (Epivir) 50 mg PO DAILY [facility] Last Admin: 05/13/17 11:00 Dose: 50 mg Methylprednisolone (Solu-Medrol) 40 mg IVP Q6 [facility] Last Admin: 05/13/17 05:44 Dose: 40 mg Raltegravir (Isentress) 400 mg PO BID [facility] Last Admin: 05/13/17 11:00 Dose: 400 mg - Labs Labs: 05/12/17 11:56 05/12/17 11:56 PT 25.4 SECONDS (9.7-12.2) H 05/03/17 13:35 INR 2.2 05/03/17 13:35 APTT 40 SECONDS (21-34) H 05/03/17 13:35 - Constitutional Appears: No Acute Distress, Chronically Ill - Head Exam Head Exam: ATRAUMATIC, NORMAL INSPECTION - Eye Exam Eye Exam: EOMI, Normal appearance - Neck Exam Neck Exam: Normal Inspection. absent: Tenderness - Respiratory Exam Respiratory Exam: Clear to Ausculation Bilateral, NORMAL BREATHING PATTERN - Cardiovascular Exam Cardiovascular Exam: REGULAR RHYTHM, +S1 - GI/Abdominal Exam GI & Abdominal Exam: Soft. absent: Tenderness - Extremities Exam Extremities Exam: Pedal Edema. absent: Tenderness - Neurological Exam Neurological Exam: Altered, CN II-XII Intact - Skin Skin Exam: Dry, Warm Assessment and Plan (1) HIV (human immunodeficiency virus infection) Status: Acute (2) Altered mental state Status: Acute (3) SUZANNE (acute kidney injury) Status: Acute (4) VRE bacteremia Status: Acute - Assessment and Plan (Free Text) Plan: Continue IV ABs Dialysis TTS Will need eventual placement
[2017-05-13] MEDS: Fluconazole IV 100mg/50 ml NS 50 ML IVPB SCH (13:00)
--- NOTE | 2017-05-13 13:14 | CP.PCM.PN ---
Subjective - Date & Time of Evaluation Date of Evaluation: 05/13/17 Time of Evaluation: 13:22 - Subjective Subjective: Patient seen and examined at bedside; he is uncomfortable in bed and gurgling through his words; only able to speak one word at a time; states he is uncomfortable; otherwise has no complaints Objective - Vital Signs/Intake and Output Vital Signs (last 24 hours): Temp Pulse Resp BP Pulse Ox 97.3 F L 76 20 148/77 98 05/13/17 08:41 05/13/17 08:41 05/13/17 08:41 05/13/17 08:41 05/13/17 08:41 Intake and Output: 05/13/17 05/13/17 06:59 18:59 Intake Total 528 Output Total 475 Balance 53 - Medications Medications: Current Medications Abacavir Sulfate (Ziagen) 300 mg PO BID [facility] Last Admin: 05/13/17 11:00 Dose: 300 mg Acetaminophen (Tylenol 650 Mg Supp) 650 mg MS Q6 PRN PRN Reason: Temperature > 100.4 F Linezolid (Zyvox 600mg/300ml D5w) 600 mg in 300 mls @ 200 mls/hr IVPB Q12H [facility] Last Admin: 05/13/17 11:00 Dose: 200 mls/hr Fluconazole (Diflucan Iv 100 Mg/50 Ml Ns) 50 mls @ 100 mls/hr IVPB Q24H [facility] Last Admin: 05/13/17 13:00 Dose: 100 mls/hr Dextrose/Sodium Chloride (Dextrose 5%/0.45% Ns 1000 Ml) 1,000 mls @ 80 mls/hr IV .[id number] [facility] Last Admin: 05/09/17 03:30 Dose: Not Given Chromium/Copper/Manganese/Zinc (1 ml/ Amino Acids) 1,001 mls @ 60 mls/hr IV .[id number] [facility] Stop: 05/13/17 17:59 Last Admin: 05/13/17 11:23 Dose: 60 mls/hr Fat Emulsion Intravenous (Intralipid 20%) 250 mls @ 42 mls/hr IV QOD@1800 [facility] Last Admin: 05/12/17 18:54 Dose: 42 mls/hr Chromium/Copper/Manganese/Zinc 1 ml/ Multivitamins/Vitamin C 10 ml/ Amino Acids 1,011 mls @ 60 mls/hr IV .[id number] [facility] Stop: 05/14/17 10:50 Chromium/Copper/Manganese/Zinc (1 ml/ Amino Acids) 1,001 mls @ 60 mls/hr IV .[id number] [facility] Stop: 05/14/17 17:59 Insulin Human Regular (Novolin R) 0 unit SC ACHS [facility] PRN Reason: Protocol Last Admin: 05/13/17 11:00 Dose: 3 unit Lamivudine (Epivir) 50 mg PO DAILY [facility] Last Admin: 05/13/17 11:00 Dose: 50 mg Methylprednisolone (Solu-Medrol) 40 mg IVP Q6 [facility] Last Admin: 05/13/17 13:00 Dose: 40 mg Raltegravir (Isentress) 400 mg PO BID [facility] Last Admin: 05/13/17 11:00 Dose: 400 mg - Labs Labs: 05/12/17 11:56 05/12/17 11:56 PT 25.4 SECONDS (9.7-12.2) H 05/03/17 13:35 INR 2.2 05/03/17 13:35 APTT 40 SECONDS (21-34) H 05/03/17 13:35 - Constitutional Appears: Cachectic, Chronically Ill - Head Exam Head Exam: ATRAUMATIC - Eye Exam Eye Exam: EOMI - ENT Exam ENT Exam: Mucous Membranes Dry - Neck Exam Neck Exam: absent: Full ROM - Respiratory Exam Respiratory Exam: Rales, Rhonchi, Wheezes - Cardiovascular Exam Cardiovascular Exam: Tachycardia - GI/Abdominal Exam GI & Abdominal Exam: Soft - Extremities Exam Extremities Exam: absent: Calf Tenderness - Back Exam Back Exam: absent: CVA tenderness (L), CVA tenderness (R) - Neurological Exam Neurological Exam: Awake, Oriented x3 - Skin Skin Exam: Warm Assessment and Plan - Assessment and Plan (Free Text) Assessment: Sepsis-Bacteremia 05/13: On Linezolid/Meropenem broad spectrum antibiotics [facility] Criteria no longer met, but on admission (Temp, Tachy, WBC) Secondary to pneumonia or UTI Blood culture (05/03/17): Gram positive cocci- VRE x 1 (anaerobic positive only) ; no growth x 1 (aerobic bottle) Positive UA Urine Cx: Yeast Dr. La, help appreciated Contact Isolation for VRE Merrem 500mg IV Q8H [facility] Vancomycin ONCE Diflucan 100mg IV Q24H Zyvox 600mg IV Q12H Tylenol 650mg MS Q6H PRN Pneumonia; Resolving CXR (05/03/17): Patchy b/l mid to lower lobe infiltrates. Cardiomegaly. (see full report) Dr. La, help appreciated - Repeat CXR (05/10/17) Stable CXR with borderline pulm vascular derangement and right pleural effusion as well as limited bilateral airspace disease appreciated once again (see full report) Could be the source of his bacteremia, will continue with IV antibiotics and bipap for support, patient is DNR/DNI Merrem 500mg IV Q8H [facility] -Vancomycin ONCE Zyvox 600mg IV Q12H Solumedrol 40mg IV Q6H Duoneb Q6H [facility] Bipap PRN Patient is still short of breath even with BiPap; patient does not feel that it will get better and was requesting even less aggressive measures to remain "comfortable". Spoke to sister and she states "whatever Kj wants". I believe that patient is a good fit for hospice; patient agrees. Will have hospice nurse come and evaluate patient formally. Renal Failure Dr. Domínguez, help appreciated 05/13; patient for dialysis tomorrow 05/10: Pt will be on T--Sat schedule for dialysis UTI; resolving Dr. La, help appreciated - Fluconazole HISTORY OF CANCER 05/13: PSA never drawn, along with other labs ordered for 05/10; ordered stat for today 05/09: Have decided to do a PSA for tomorrow's labs. CHF, ejection fraction preserved; diastolic chronic ECHO (02/26/17): EF 62%, mild tricuspid regurgitation, moderate pulm HTN, Mitral annular calcification, Right atrium dilated, Left atrium borderline dilated Hold home lasix BNP 24,000 on admission Anemia;chronic and stable hovering around 9 HIV;chronic 05/10: HIV medications restarted. Pt on home Truvada 200/300mg, Raltegravir 400mg PO BID, Bactrim DS Type Two Diabetes Mellitus - Chronic 05/10: Started PPN. Will continue with accuchecks. Sugars poorly controlled RISS COPD -Chronic 05/07: continue current supportive treatment patient is DNR/DNI Secondary to pneumonia, history of COPD Solumedrol 40mg IV Q6H Duoneb Q6H [facility] Bipap PRN Sacral Ulcer 05/07: wound care, help appreciated, turn patient q2H Wound care, consulted, help appreciated - f/u reccs History of BPH Tamsulosin 0.4mg PO daily End of Life Goals 05/07: patient is still DNR/DNI, see POLST document in the chart 05/13: Patient is requesting hospice; hospice eval placed; appreciate recs Jose A Osullivan PGY-2 All medical management per Dr. Stanley
[2017-05-13] MEDS ORDERED: PPN#3 IV SCH (18:00)
[2017-05-14] MEDS: Linezolid 600 mg in D5W 300 ml 600 MG/300 ML BAG IVPB SCH ×3 (01:11→22:12)
[2017-05-14] MEDS: MethylPREDNISolone 40 mg Vial IVP SCH ×4 (01:11→19:35)
[2017-05-14] MEDS: (Novolin R) Insulin Human Regular 100 units/ml vial SC SCH ×5 (07:42→22:12)
--- NOTE | 2017-05-14 09:14 | CP.PCM.PN ---
Subjective - Date & Time of Evaluation Date of Evaluation: 05/14/17 Time of Evaluation: 10:00 - Subjective Subjective: Dr. Stanley note: Patient seen and examined in room. Patient is awake answering some questions. He is also following commands. He has on nasal canula. Spoke with patient's sister over the phone who said the patient has a daughter but she has no idea of her contact information. Objective - Vital Signs/Intake and Output Vital Signs (last 24 hours): Temp Pulse Resp BP Pulse Ox 97.3 F L 64 20 126/71 100 05/14/17 08:00 05/14/17 08:00 05/14/17 08:00 05/14/17 08:00 05/14/17 08:00 Intake and Output: 05/14/17 05/14/17 06:59 18:59 Intake Total 880 Output Total 700 Balance 180 - Medications Medications: Current Medications Abacavir Sulfate (Ziagen) 300 mg PO BID [facility] Last Admin: 05/13/17 18:17 Dose: 300 mg Acetaminophen (Tylenol 650 Mg Supp) 650 mg [place] Q6 PRN PRN Reason: Temperature > 100.4 F Linezolid (Zyvox 600mg/300ml D5w) 600 mg in 300 mls @ 200 mls/hr IVPB Q12H [facility] Last Admin: 05/14/17 01:11 Dose: 200 mls/hr Fluconazole (Diflucan Iv 100 Mg/50 Ml Ns) 50 mls @ 100 mls/hr IVPB Q24H [facility] Last Admin: 05/13/17 13:00 Dose: 100 mls/hr Dextrose/Sodium Chloride (Dextrose 5%/0.45% Ns 1000 Ml) 1,000 mls @ 80 mls/hr IV .[id number] [facility] Last Admin: 05/09/17 03:30 Dose: Not Given Fat Emulsion Intravenous (Intralipid 20%) 250 mls @ 42 mls/hr IV QOD@1800 [facility] Last Admin: 05/12/17 18:54 Dose: 42 mls/hr Chromium/Copper/Manganese/Zinc 1 ml/ Multivitamins/Vitamin C 10 ml/ Amino Acids 1,011 mls @ 60 mls/hr IV .[id number] [facility] Stop: 05/14/17 10:50 Last Admin: 05/13/17 18:18 Dose: 60 mls/hr Chromium/Copper/Manganese/Zinc (1 ml/ Amino Acids) 1,001 mls @ 60 mls/hr IV .[id number] [facility] Stop: 05/14/17 17:59 Insulin Human Regular (Novolin R) 0 unit SC ACHS [facility] PRN Reason: Protocol Last Admin: 05/14/17 07:42 Dose: Not Given Lamivudine (Epivir) 50 mg PO DAILY [facility] Last Admin: 05/13/17 11:00 Dose: 50 mg Methylprednisolone (Solu-Medrol) 40 mg IVP Q6 [facility] Last Admin: 05/14/17 06:12 Dose: 40 mg Raltegravir (Isentress) 400 mg PO BID [facility] Last Admin: 05/13/17 18:17 Dose: 400 mg - Labs Labs: 05/12/17 11:56 05/12/17 11:56 PT 25.4 SECONDS (9.7-12.2) H 05/03/17 13:35 INR 2.2 05/03/17 13:35 APTT 40 SECONDS (21-34) H 05/03/17 13:35 - Constitutional Appears: Non-toxic, No Acute Distress - Eye Exam Eye Exam: Normal appearance Pupil Exam: NORMAL ACCOMODATION - Respiratory Exam Respiratory Exam: Decreased Breath Sounds. absent: Clear to Ausculation Bilateral, Rales, Rhonchi, Wheezes, NORMAL BREATHING PATTERN - Cardiovascular Exam Cardiovascular Exam: REGULAR RHYTHM, RRR, +S1, +S2. absent: Gallop, Rubs - GI/Abdominal Exam GI & Abdominal Exam: Soft, Normal Bowel Sounds. absent: Tenderness - Extremities Exam Extremities Exam: Normal Inspection - Neurological Exam Neurological Exam: Alert, Awake. absent: Oriented x3 - Skin Skin Exam: Pallor Assessment and Plan - Assessment and Plan (Free Text) Assessment: Sepsis-Bacteremia 05/14: Repeat blood culture showed gram positive with clusters, could be contamination or could be from his permacath lines, follow up sensitivity. 05/13: On Linezolid/Meropenem broad spectrum antibiotics Admit to tele Criteria no longer met, but on admission (Temp, Tachy, WBC) Secondary to pneumonia or UTI Blood culture (05/03/17): Gram positive cocci- VRE x 1 (anaerobic positive only) ; no growth x 1 (aerobic bottle) Positive UA Urine Cx: Yeast Dr. La, help appreciated Contact Isolation for VRE Merrem 500mg IV Q8H [facility] Vancomycin ONCE Diflucan 100mg IV Q24H Zyvox 600mg IV Q12H Tylenol 650mg [place] Q6H PRN Pneumonia; Resolving 05/15: Day 12 of IV antibiotics. CXR (05/03/17): Patchy b/l mid to lower lobe infiltrates. Cardiomegaly. (see full report) Dr. La, help appreciated - Repeat CXR (05/10/17) Stable CXR with borderline pulm vascular derangement and right pleural effusion as well as limited bilateral airspace disease appreciated once again (see full report) Could be the source of his bacteremia, will continue with IV antibiotics and bipap for support, patient is DNR/DNI Merrem 500mg IV Q8H [facility] -Vancomycin ONCE Zyvox 600mg IV Q12H Solumedrol 40mg IV Q6H Duoneb Q6H [facility] Bipap PRN Patient is still short of breath even with BiPap; patient does not feel that it will get better and was requesting even less aggressive measures to remain "comfortable". Spoke to sister and she states "whatever Kj wants". I believe that patient is a good fit for hospice; patient agrees. Will have hospice nurse come and evaluate patient formally. Renal Failure 05/15: dialysis today Dr. Domínguez, help appreciated 05/13; patient for dialysis tomorrow 05/10: Pt will be on T-Th-Sat schedule for dialysis UTI; resolving Dr. La, help appreciated - Fluconazole HISTORY OF CANCER 05/14: PSA pending 05/13: PSA never drawn, along with other labs ordered for 05/10; ordered stat for today 05/09: Have decided to do a PSA for tomorrow's labs. CHF, ejection fraction preserved; diastolic chronic ECHO (02/26/17): EF 62%, mild tricuspid regurgitation, moderate pulm HTN, Mitral annular calcification, Right atrium dilated, Left atrium borderline dilated Hold home lasix BNP 24,000 on admission Anemia;chronic and stable 05/15: stable, in the 8s. hovering around 9 HIV;chronic 05/10: HIV medications restarted. Pt on home Truvada 200/300mg, Raltegravir 400mg PO BID, Bactrim DS Type Two Diabetes Mellitus - Chronic 05/10: Started PPN. Will continue with accuchecks. Sugars poorly controlled RISS COPD -Chronic 05/07: continue current supportive treatment patient is DNR/DNI Secondary to pneumonia, history of COPD Solumedrol 40mg IV Q6H Duoneb Q6H [facility] Bipap PRN Sacral Ulcer 05/07: wound care, help appreciated, turn patient q2H Wound care, consulted, help appreciated - f/u reccs History of BPH Tamsulosin 0.4mg PO daily End of Life Goals 05/14: patient is approved for hospice care, might discharge patient tomorrow back to senior living with hospice care. 05/07: patient is still DNR/DNI, see POLST document in the chart 05/13: Patient is requesting hospice; hospice eval placed; appreciate recs All medical management per Dr. Stanley
[2017-05-14] MEDS: LamiVUDine 10 mg/ml Syringe PO SCH (10:03)
--- NOTE | 2017-05-14 10:31 | CP.PCM.PN ---
Subjective - Date & Time of Evaluation Date of Evaluation: 05/14/17 Time of Evaluation: 09:00 - Subjective Subjective: blood c/s again positive may need to change lines check echo'discussed with Dr Villagran Objective - Vital Signs/Intake and Output Vital Signs (last 24 hours): Temp Pulse Resp BP Pulse Ox 97.3 F L 64 20 126/71 100 05/14/17 08:00 05/14/17 08:00 05/14/17 08:00 05/14/17 08:00 05/14/17 08:00 Intake and Output: 05/14/17 05/14/17 06:59 18:59 Intake Total 880 Output Total 700 Balance 180 - Medications Medications: Current Medications Abacavir Sulfate (Ziagen) 300 mg PO BID [facility] Last Admin: 05/14/17 10:03 Dose: 300 mg Acetaminophen (Tylenol 650 Mg Supp) 650 mg [place] Q6 PRN PRN Reason: Temperature > 100.4 F Linezolid (Zyvox 600mg/300ml D5w) 600 mg in 300 mls @ 200 mls/hr IVPB Q12H [facility] Last Admin: 05/14/17 01:11 Dose: 200 mls/hr Fluconazole (Diflucan Iv 100 Mg/50 Ml Ns) 50 mls @ 100 mls/hr IVPB Q24H [facility] Last Admin: 05/13/17 13:00 Dose: 100 mls/hr Dextrose/Sodium Chloride (Dextrose 5%/0.45% Ns 1000 Ml) 1,000 mls @ 80 mls/hr IV .[id number] [facility] Last Admin: 05/09/17 03:30 Dose: Not Given Fat Emulsion Intravenous (Intralipid 20%) 250 mls @ 42 mls/hr IV QOD@1800 [facility] Last Admin: 05/12/17 18:54 Dose: 42 mls/hr Chromium/Copper/Manganese/Zinc 1 ml/ Multivitamins/Vitamin C 10 ml/ Amino Acids 1,011 mls @ 60 mls/hr IV .[id number] [facility] Stop: 05/14/17 10:50 Last Admin: 05/13/17 18:18 Dose: 60 mls/hr Chromium/Copper/Manganese/Zinc (1 ml/ Amino Acids) 1,001 mls @ 60 mls/hr IV .[id number] [facility] Stop: 05/14/17 17:59 Last Admin: 05/14/17 10:02 Dose: 60 mls/hr Insulin Human Regular (Novolin R) 0 unit SC ACHS [facility] PRN Reason: Protocol Last Admin: 05/14/17 07:42 Dose: Not Given Lamivudine (Epivir) 50 mg PO DAILY [facility] Last Admin: 05/14/17 10:03 Dose: 50 mg Methylprednisolone (Solu-Medrol) 40 mg IVP Q6 [facility] Last Admin: 05/14/17 06:12 Dose: 40 mg Raltegravir (Isentress) 400 mg PO BID [facility] Last Admin: 05/14/17 10:03 Dose: 400 mg - Labs Labs: 05/12/17 11:56 05/12/17 11:56 PT 25.4 SECONDS (9.7-12.2) H 05/03/17 13:35 INR 2.2 05/03/17 13:35 APTT 40 SECONDS (21-34) H 05/03/17 13:35 - Constitutional Appears: Confused, Cachectic - Head Exam Head Exam: NORMOCEPHALIC - Eye Exam Eye Exam: PERRL - ENT Exam ENT Exam: Mucous Membranes Dry - Neck Exam Neck Exam: absent: Lymphadenopathy - Respiratory Exam Respiratory Exam: Decreased Breath Sounds - Cardiovascular Exam Cardiovascular Exam: REGULAR RHYTHM - GI/Abdominal Exam GI & Abdominal Exam: Distended, Soft Assessment and Plan (1) CHF (congestive heart failure) Status: Acute (2) Dyspnea Status: Acute (3) Elevated troponin Status: Acute (4) Fever Status: Acute (5) Pneumonia Status: Acute (6) Sepsis Status: Acute (7) SUZANNE (acute kidney injury) Status: Acute (8) Anasarca Status: Acute (9) HIV antibody positive Status: Acute (10) Hypokalemia Status: Acute (11) Lung cancer Status: Acute (12) CARMELA (obstructive sleep apnea) Status: Acute (13) Obstructive uropathy Status: Acute (14) Pancytopenia Status: Acute (15) Prophylactic measure Status: Acute (16) Thrombocytopenia Status: Acute (17) UTI (urinary tract infection) Status: Acute
[2017-05-14] MEDS ORDERED: PPN#4 IV SCH (10:51)
[2017-05-14] MEDS: Fluconazole IV 100mg/50 ml NS 50 ML IVPB SCH (12:08)
--- NOTE | 2017-05-14 12:30 | CP.PCM.PN ---
Subjective - Date & Time of Evaluation Date of Evaluation: 05/14/17 Time of Evaluation: 12:28 - Subjective Subjective: FINAL BLOOD CX NEG, PRELIM COAG NEG STAPH -?CONTAMINANT seen and examined hd yesterday pt sleeping comfortably, arousable unable to obtain ros, dementia Objective - Vital Signs/Intake and Output Vital Signs (last 24 hours): Temp Pulse Resp BP Pulse Ox 97.3 F L 64 20 126/71 100 05/14/17 08:00 05/14/17 08:00 05/14/17 08:00 05/14/17 08:00 05/14/17 08:00 Intake and Output: 05/14/17 05/14/17 06:59 18:59 Intake Total 880 Output Total 700 Balance 180 - Medications Medications: Current Medications Abacavir Sulfate (Ziagen) 300 mg PO BID [facility] Last Admin: 05/14/17 10:03 Dose: 300 mg Acetaminophen (Tylenol 650 Mg Supp) 650 mg [place] Q6 PRN PRN Reason: Temperature > 100.4 F Linezolid (Zyvox 600mg/300ml D5w) 600 mg in 300 mls @ 200 mls/hr IVPB Q12H [facility] Last Admin: 05/14/17 11:55 Dose: 200 mls/hr Fluconazole (Diflucan Iv 100 Mg/50 Ml Ns) 50 mls @ 100 mls/hr IVPB Q24H [facility] Last Admin: 05/14/17 12:08 Dose: 100 mls/hr Dextrose/Sodium Chloride (Dextrose 5%/0.45% Ns 1000 Ml) 1,000 mls @ 80 mls/hr IV .[id number] [facility] Last Admin: 05/09/17 03:30 Dose: Not Given Fat Emulsion Intravenous (Intralipid 20%) 250 mls @ 42 mls/hr IV QOD@1800 [facility] Last Admin: 05/12/17 18:54 Dose: 42 mls/hr Chromium/Copper/Manganese/Zinc (1 ml/ Amino Acids) 1,001 mls @ 60 mls/hr IV .[id number] [facility] Stop: 05/14/17 17:59 Last Admin: 05/14/17 10:02 Dose: 60 mls/hr Chromium/Copper/Manganese/Zinc 1 ml/ Multivitamins/Vitamin C 10 ml/ Amino Acids 1,011 mls @ 60 mls/hr IV .[id number] [facility] Stop: 05/15/17 10:50 Chromium/Copper/Manganese/Zinc (1 ml/ Amino Acids) 1,001 mls @ 60 mls/hr IV .[id number] [facility] Stop: 05/15/17 17:59 Insulin Human Regular (Novolin R) 0 unit SC ACHS [facility] PRN Reason: Protocol Last Admin: 05/14/17 12:05 Dose: Not Given Lamivudine (Epivir) 50 mg PO DAILY [facility] Last Admin: 05/14/17 10:03 Dose: 50 mg Methylprednisolone (Solu-Medrol) 40 mg IVP Q6 [facility] Last Admin: 05/14/17 11:55 Dose: 40 mg Raltegravir (Isentress) 400 mg PO BID [facility] Last Admin: 05/14/17 10:03 Dose: 400 mg - Labs Labs: 05/12/17 11:56 05/12/17 11:56 PT 25.4 SECONDS (9.7-12.2) H 05/03/17 13:35 INR 2.2 05/03/17 13:35 APTT 40 SECONDS (21-34) H 05/03/17 13:35 - Constitutional Appears: No Acute Distress, Older Than Stated Age, Chronically Ill - Head Exam Head Exam: NORMAL INSPECTION - Eye Exam Eye Exam: Normal appearance - ENT Exam ENT Exam: Mucous Membranes Dry - Neck Exam Neck Exam: Normal Inspection - Respiratory Exam Respiratory Exam: Decreased Breath Sounds, NORMAL BREATHING PATTERN - Cardiovascular Exam Cardiovascular Exam: REGULAR RHYTHM, RRR - GI/Abdominal Exam GI & Abdominal Exam: Distended, Soft - Extremities Exam Extremities Exam: Pedal Edema Assessment and Plan (1) SUZANNE (acute kidney injury) Status: Acute (2) Altered mental state Status: Acute (3) CHF (congestive heart failure) Status: Acute (4) Dyspnea Status: Acute (5) Elevated troponin Status: Acute (6) Fever Status: Acute (7) HIV (human immunodeficiency virus infection) Status: Acute (8) Pneumonia Status: Acute (9) Sepsis Status: Acute (10) VRE bacteremia Status: Acute - Assessment and Plan (Free Text) Assessment: maintain hd will need outpt hd placement follow ID recs. ? contaminant vs staph bacteremia. Repeat cultures w/ hd tomorrow
[2017-05-14 14:43] LABS: BASO % 0.1 % (0.0-2.0); HEMATOCRIT 26.6 % (35.0-51.0); LYMPH # 0.3 K/uL (1.0-4.3); LYMPH % 2.2 % (20.0-40.0); MEAN CELL VOLUME 85.5 fL (80.0-94.0); MEAN CORPUSCULAR HGB CONC 32.7 g/dL (33.0-37.0); MEAN PLATELET VOLUME 8.4 fL (7.2-11.7); MONO # 0.1 K/uL (0.0-0.8); MONO % 0.8 % (0.0-10.0); NRBC % 0.1 % (0.0-2.0); RED CELL DISTRIBUTION WIDTH 19.1 % (11.5-14.5); WHITE BLOOD COUNT 11.5 K/uL (4.8-10.8)
[2017-05-14 14:50] LABS: PLATELET COUNT 65 K/uL (130-400)
[2017-05-14 14:55] LABS: FDP INTERPRETATION POSITIVE (NEGATIVE); FDP QUANTITY >10<40 ug/mL (<10)
[2017-05-14 14:57] LABS: INR 1.2; PARTIAL THROMBOPLASTIN TIME 29 SECONDS (21-34)
[2017-05-14 14:58] LABS: ALB/GLOB RATIO 0.8 (1.0-2.1); PHOSPHOROUS 5.4 mg/dL (2.5-4.5); TOTAL PROTEIN 5.2 g/dL (6.3-8.3)
[2017-05-14 14:59] LABS: CALCIUM 6.7 mg/dl (8.6-10.4); MAGNESIUM 1.3 mg/dL (1.6-2.3)
[2017-05-14 15:00] LABS: FIBRINOGEN 133 mg/dL (200-400)
[2017-05-14 15:49] LABS: NEUTROPHIL 97 % (50-75); TOTAL CELLS COUNTED 100
--- NOTE | 2017-05-14 17:51 | CP.PCM.PN ---
Subjective - Date & Time of Evaluation Date of Evaluation: 05/08/17 Time of Evaluation: 18:00 - Subjective Subjective: lethargic but opens eyes Objective - Vital Signs/Intake and Output Vital Signs (last 24 hours): Temp Pulse Resp BP Pulse Ox 97.4 F L 67 20 123/33 L 96 05/14/17 15:20 05/14/17 15:20 05/14/17 15:20 05/14/17 17:40 05/14/17 15:20 Intake and Output: 05/14/17 05/14/17 06:59 18:59 Intake Total 880 706 Output Total 700 350 Balance 180 356 - Medications Medications: Current Medications Abacavir Sulfate (Ziagen) 300 mg PO BID [facility] Last Admin: 05/14/17 10:03 Dose: 300 mg Acetaminophen (Tylenol 650 Mg Supp) 650 mg [place] Q6 PRN PRN Reason: Temperature > 100.4 F Linezolid (Zyvox 600mg/300ml D5w) 600 mg in 300 mls @ 200 mls/hr IVPB Q12H [facility] Last Admin: 05/14/17 11:55 Dose: 200 mls/hr Fluconazole (Diflucan Iv 100 Mg/50 Ml Ns) 50 mls @ 100 mls/hr IVPB Q24H [facility] Last Admin: 05/14/17 12:08 Dose: 100 mls/hr Dextrose/Sodium Chloride (Dextrose 5%/0.45% Ns 1000 Ml) 1,000 mls @ 80 mls/hr IV .[id number] [facility] Last Admin: 05/09/17 03:30 Dose: Not Given Fat Emulsion Intravenous (Intralipid 20%) 250 mls @ 42 mls/hr IV QOD@1800 [facility] Last Admin: 05/12/17 18:54 Dose: 42 mls/hr Chromium/Copper/Manganese/Zinc (1 ml/ Amino Acids) 1,001 mls @ 60 mls/hr IV .[id number] [facility] Stop: 05/14/17 17:59 Last Admin: 05/14/17 10:02 Dose: 60 mls/hr Chromium/Copper/Manganese/Zinc 1 ml/ Multivitamins/Vitamin C 10 ml/ Amino Acids 1,011 mls @ 60 mls/hr IV .[id number] [facility] Stop: 05/15/17 10:50 Chromium/Copper/Manganese/Zinc (1 ml/ Amino Acids) 1,001 mls @ 60 mls/hr IV .[id number] [facility] Stop: 05/15/17 17:59 Insulin Human Regular (Novolin R) 0 unit SC ACHS [facility] PRN Reason: Protocol Last Admin: 05/14/17 17:19 Dose: Not Given Lamivudine (Epivir) 50 mg PO DAILY [facility] Last Admin: 05/14/17 10:03 Dose: 50 mg Methylprednisolone (Solu-Medrol) 40 mg IVP Q6 [facility] Last Admin: 05/14/17 11:55 Dose: 40 mg Raltegravir (Isentress) 400 mg PO BID [facility] Last Admin: 05/14/17 10:03 Dose: 400 mg - Labs Labs: 05/14/17 14:35 05/14/17 14:35 PT 13.7 SECONDS (9.7-12.2) H 05/14/17 14:35 INR 1.2 05/14/17 14:35 APTT 29 SECONDS (21-34) 05/14/17 14:35 - Head Exam Head Exam: ATRAUMATIC - Eye Exam Eye Exam: Normal appearance - ENT Exam ENT Exam: Mucous Membranes Dry - Respiratory Exam Respiratory Exam: NORMAL BREATHING PATTERN - Cardiovascular Exam Cardiovascular Exam: +S1, +S2 - GI/Abdominal Exam GI & Abdominal Exam: Normal Bowel Sounds Assessment and Plan (1) Anemia Assessment & Plan: chronic disease, renal disease elevated ferritin stores; no longer iron deficient Status: Acute (2) Thrombocytopenia Assessment & Plan: sepsis related Status: Acute (3) Coagulopathy Assessment & Plan: nutritional repeat fibrinogen Status: Acute
--- NOTE | 2017-05-14 18:00 | CP.PCM.PN ---
Subjective - Date & Time of Evaluation Date of Evaluation: 05/09/17 Time of Evaluation: 13:00 - Subjective Subjective: Lethargic, opens eyes Objective - Vital Signs/Intake and Output Vital Signs (last 24 hours): Temp Pulse Resp BP Pulse Ox 97.4 F L 67 20 123/33 L 96 05/14/17 15:20 05/14/17 15:20 05/14/17 15:20 05/14/17 17:40 05/14/17 15:20 Intake and Output: 05/14/17 05/14/17 06:59 18:59 Intake Total 880 706 Output Total 700 350 Balance 180 356 - Medications Medications: Current Medications Abacavir Sulfate (Ziagen) 300 mg PO BID [facility] Last Admin: 05/14/17 10:03 Dose: 300 mg Acetaminophen (Tylenol 650 Mg Supp) 650 mg [place] Q6 PRN PRN Reason: Temperature > 100.4 F Linezolid (Zyvox 600mg/300ml D5w) 600 mg in 300 mls @ 200 mls/hr IVPB Q12H [facility] Last Admin: 05/14/17 11:55 Dose: 200 mls/hr Fluconazole (Diflucan Iv 100 Mg/50 Ml Ns) 50 mls @ 100 mls/hr IVPB Q24H [facility] Last Admin: 05/14/17 12:08 Dose: 100 mls/hr Dextrose/Sodium Chloride (Dextrose 5%/0.45% Ns 1000 Ml) 1,000 mls @ 80 mls/hr IV .[id number] [facility] Last Admin: 05/09/17 03:30 Dose: Not Given Fat Emulsion Intravenous (Intralipid 20%) 250 mls @ 42 mls/hr IV QOD@1800 [facility] Last Admin: 05/12/17 18:54 Dose: 42 mls/hr Chromium/Copper/Manganese/Zinc (1 ml/ Amino Acids) 1,001 mls @ 60 mls/hr IV .[id number] [facility] Stop: 05/14/17 17:59 Last Admin: 05/14/17 10:02 Dose: 60 mls/hr Chromium/Copper/Manganese/Zinc 1 ml/ Multivitamins/Vitamin C 10 ml/ Amino Acids 1,011 mls @ 60 mls/hr IV .[id number] [facility] Stop: 05/15/17 10:50 Chromium/Copper/Manganese/Zinc (1 ml/ Amino Acids) 1,001 mls @ 60 mls/hr IV .[id number] [facility] Stop: 05/15/17 17:59 Insulin Human Regular (Novolin R) 0 unit SC ACHS [facility] PRN Reason: Protocol Last Admin: 05/14/17 17:19 Dose: Not Given Lamivudine (Epivir) 50 mg PO DAILY [facility] Last Admin: 05/14/17 10:03 Dose: 50 mg Methylprednisolone (Solu-Medrol) 40 mg IVP Q6 [facility] Last Admin: 05/14/17 11:55 Dose: 40 mg Raltegravir (Isentress) 400 mg PO BID [facility] Last Admin: 05/14/17 10:03 Dose: 400 mg - Labs Labs: 05/14/17 14:35 05/14/17 14:35 PT 13.7 SECONDS (9.7-12.2) H 05/14/17 14:35 INR 1.2 05/14/17 14:35 APTT 29 SECONDS (21-34) 05/14/17 14:35 - Head Exam Head Exam: ATRAUMATIC - Eye Exam Eye Exam: Normal appearance - ENT Exam ENT Exam: Mucous Membranes Dry - Respiratory Exam Respiratory Exam: NORMAL BREATHING PATTERN - Cardiovascular Exam Cardiovascular Exam: +S1, +S2 - GI/Abdominal Exam GI & Abdominal Exam: Normal Bowel Sounds Assessment and Plan (1) Anemia Assessment & Plan: anemia of HIV, chronic disease, renal disease transfusion support PRN Status: Acute (2) Thrombocytopenia Assessment & Plan: sepsis induced Status: Acute (3) Coagulopathy Assessment & Plan: nutritional repeat fibrinogen normal Status: Acute
--- NOTE | 2017-05-14 18:02 | CP.PCM.PN ---
Subjective - Date & Time of Evaluation Date of Evaluation: 05/10/17 Time of Evaluation: 19:00 - Subjective Subjective: Remains lethargic, opens eyes Objective - Vital Signs/Intake and Output Vital Signs (last 24 hours): Temp Pulse Resp BP Pulse Ox 97.4 F L 67 20 123/33 L 96 05/14/17 15:20 05/14/17 15:20 05/14/17 15:20 05/14/17 17:40 05/14/17 15:20 Intake and Output: 05/14/17 05/14/17 06:59 18:59 Intake Total 880 706 Output Total 700 350 Balance 180 356 - Medications Medications: Current Medications Abacavir Sulfate (Ziagen) 300 mg PO BID [facility] Last Admin: 05/14/17 10:03 Dose: 300 mg Acetaminophen (Tylenol 650 Mg Supp) 650 mg [place] Q6 PRN PRN Reason: Temperature > 100.4 F Linezolid (Zyvox 600mg/300ml D5w) 600 mg in 300 mls @ 200 mls/hr IVPB Q12H [facility] Last Admin: 05/14/17 11:55 Dose: 200 mls/hr Fluconazole (Diflucan Iv 100 Mg/50 Ml Ns) 50 mls @ 100 mls/hr IVPB Q24H [facility] Last Admin: 05/14/17 12:08 Dose: 100 mls/hr Dextrose/Sodium Chloride (Dextrose 5%/0.45% Ns 1000 Ml) 1,000 mls @ 80 mls/hr IV .[id number] [facility] Last Admin: 05/09/17 03:30 Dose: Not Given Fat Emulsion Intravenous (Intralipid 20%) 250 mls @ 42 mls/hr IV QOD@1800 [facility] Last Admin: 05/12/17 18:54 Dose: 42 mls/hr Chromium/Copper/Manganese/Zinc 1 ml/ Multivitamins/Vitamin C 10 ml/ Amino Acids 1,011 mls @ 60 mls/hr IV .[id number] [facility] Stop: 05/15/17 10:50 Chromium/Copper/Manganese/Zinc (1 ml/ Amino Acids) 1,001 mls @ 60 mls/hr IV .[id number] [facility] Stop: 05/15/17 17:59 Insulin Human Regular (Novolin R) 0 unit SC ACHS [facility] PRN Reason: Protocol Last Admin: 05/14/17 17:19 Dose: Not Given Lamivudine (Epivir) 50 mg PO DAILY [facility] Last Admin: 05/14/17 10:03 Dose: 50 mg Methylprednisolone (Solu-Medrol) 40 mg IVP Q6 [facility] Last Admin: 05/14/17 11:55 Dose: 40 mg Raltegravir (Isentress) 400 mg PO BID [facility] Last Admin: 05/14/17 10:03 Dose: 400 mg - Labs Labs: 05/14/17 14:35 05/14/17 14:35 PT 13.7 SECONDS (9.7-12.2) H 05/14/17 14:35 INR 1.2 05/14/17 14:35 APTT 29 SECONDS (21-34) 05/14/17 14:35 - Head Exam Head Exam: ATRAUMATIC - Eye Exam Eye Exam: Normal appearance - ENT Exam ENT Exam: Mucous Membranes Dry - Respiratory Exam Respiratory Exam: NORMAL BREATHING PATTERN - Cardiovascular Exam Cardiovascular Exam: +S1, +S2 - GI/Abdominal Exam GI & Abdominal Exam: Normal Bowel Sounds - Extremities Exam Extremities Exam: Pedal Edema Assessment and Plan (1) Anemia Assessment & Plan: anemia of HIV, chronic disease, renal disease transfusion support PRN Status: Acute (2) Thrombocytopenia Assessment & Plan: sepsis related on antibiotics Status: Acute (3) Coagulopathy Assessment & Plan: nutritional Status: Acute
--- NOTE | 2017-05-14 18:03 | CP.PCM.PN ---
Subjective - Date & Time of Evaluation Date of Evaluation: 05/11/17 Time of Evaluation: 16:00 - Subjective Subjective: on bipap Objective - Vital Signs/Intake and Output Vital Signs (last 24 hours): Temp Pulse Resp BP Pulse Ox 97.4 F L 67 20 123/33 L 96 05/14/17 15:20 05/14/17 15:20 05/14/17 15:20 05/14/17 17:40 05/14/17 15:20 Intake and Output: 05/14/17 05/14/17 06:59 18:59 Intake Total 880 706 Output Total 700 350 Balance 180 356 - Medications Medications: Current Medications Abacavir Sulfate (Ziagen) 300 mg PO BID [facility] Last Admin: 05/14/17 10:03 Dose: 300 mg Acetaminophen (Tylenol 650 Mg Supp) 650 mg [place] Q6 PRN PRN Reason: Temperature > 100.4 F Linezolid (Zyvox 600mg/300ml D5w) 600 mg in 300 mls @ 200 mls/hr IVPB Q12H [facility] Last Admin: 05/14/17 11:55 Dose: 200 mls/hr Fluconazole (Diflucan Iv 100 Mg/50 Ml Ns) 50 mls @ 100 mls/hr IVPB Q24H [facility] Last Admin: 05/14/17 12:08 Dose: 100 mls/hr Dextrose/Sodium Chloride (Dextrose 5%/0.45% Ns 1000 Ml) 1,000 mls @ 80 mls/hr IV .[id number] [facility] Last Admin: 05/09/17 03:30 Dose: Not Given Fat Emulsion Intravenous (Intralipid 20%) 250 mls @ 42 mls/hr IV QOD@1800 [facility] Last Admin: 05/12/17 18:54 Dose: 42 mls/hr Chromium/Copper/Manganese/Zinc 1 ml/ Multivitamins/Vitamin C 10 ml/ Amino Acids 1,011 mls @ 60 mls/hr IV .[id number] [facility] Stop: 05/15/17 10:50 Chromium/Copper/Manganese/Zinc (1 ml/ Amino Acids) 1,001 mls @ 60 mls/hr IV .[id number] [facility] Stop: 05/15/17 17:59 Insulin Human Regular (Novolin R) 0 unit SC ACHS [facility] PRN Reason: Protocol Last Admin: 05/14/17 17:19 Dose: Not Given Lamivudine (Epivir) 50 mg PO DAILY [facility] Last Admin: 05/14/17 10:03 Dose: 50 mg Methylprednisolone (Solu-Medrol) 40 mg IVP Q6 [facility] Last Admin: 05/14/17 11:55 Dose: 40 mg Raltegravir (Isentress) 400 mg PO BID [facility] Last Admin: 05/14/17 10:03 Dose: 400 mg - Labs Labs: 05/14/17 14:35 05/14/17 14:35 PT 13.7 SECONDS (9.7-12.2) H 05/14/17 14:35 INR 1.2 05/14/17 14:35 APTT 29 SECONDS (21-34) 05/14/17 14:35 - Head Exam Head Exam: ATRAUMATIC - Eye Exam Eye Exam: Normal appearance - ENT Exam ENT Exam: Mucous Membranes Dry - Respiratory Exam Respiratory Exam: Decreased Breath Sounds - Cardiovascular Exam Cardiovascular Exam: +S1, +S2 - GI/Abdominal Exam GI & Abdominal Exam: Normal Bowel Sounds - Extremities Exam Extremities Exam: Pedal Edema Assessment and Plan (1) Anemia Assessment & Plan: anemia of HIV, chronic disease, renal disease transfusion support PRN Status: Acute (2) Thrombocytopenia Assessment & Plan: thrombocytopenia of sepsis Status: Acute (3) Coagulopathy Assessment & Plan: nutritional repeat fibrinogen Status: Acute
--- NOTE | 2017-05-14 18:05 | CP.PCM.PN ---
Subjective - Date & Time of Evaluation Date of Evaluation: 05/13/17 Time of Evaluation: 20:10 - Subjective Subjective: on bipap Objective - Vital Signs/Intake and Output Vital Signs (last 24 hours): Temp Pulse Resp BP Pulse Ox 97.4 F L 67 20 123/33 L 96 05/14/17 15:20 05/14/17 15:20 05/14/17 15:20 05/14/17 17:40 05/14/17 15:20 Intake and Output: 05/14/17 05/14/17 06:59 18:59 Intake Total 880 706 Output Total 700 350 Balance 180 356 - Medications Medications: Current Medications Abacavir Sulfate (Ziagen) 300 mg PO BID [facility] Last Admin: 05/14/17 10:03 Dose: 300 mg Acetaminophen (Tylenol 650 Mg Supp) 650 mg [place] Q6 PRN PRN Reason: Temperature > 100.4 F Linezolid (Zyvox 600mg/300ml D5w) 600 mg in 300 mls @ 200 mls/hr IVPB Q12H [facility] Last Admin: 05/14/17 11:55 Dose: 200 mls/hr Fluconazole (Diflucan Iv 100 Mg/50 Ml Ns) 50 mls @ 100 mls/hr IVPB Q24H [facility] Last Admin: 05/14/17 12:08 Dose: 100 mls/hr Dextrose/Sodium Chloride (Dextrose 5%/0.45% Ns 1000 Ml) 1,000 mls @ 80 mls/hr IV .[id number] [facility] Last Admin: 05/09/17 03:30 Dose: Not Given Fat Emulsion Intravenous (Intralipid 20%) 250 mls @ 42 mls/hr IV QOD@1800 [facility] Last Admin: 05/12/17 18:54 Dose: 42 mls/hr Chromium/Copper/Manganese/Zinc 1 ml/ Multivitamins/Vitamin C 10 ml/ Amino Acids 1,011 mls @ 60 mls/hr IV .[id number] [facility] Stop: 05/15/17 10:50 Chromium/Copper/Manganese/Zinc (1 ml/ Amino Acids) 1,001 mls @ 60 mls/hr IV .[id number] [facility] Stop: 05/15/17 17:59 Insulin Human Regular (Novolin R) 0 unit SC ACHS [facility] PRN Reason: Protocol Last Admin: 05/14/17 17:19 Dose: Not Given Lamivudine (Epivir) 50 mg PO DAILY [facility] Last Admin: 05/14/17 10:03 Dose: 50 mg Methylprednisolone (Solu-Medrol) 40 mg IVP Q6 [facility] Last Admin: 05/14/17 11:55 Dose: 40 mg Raltegravir (Isentress) 400 mg PO BID [facility] Last Admin: 05/14/17 10:03 Dose: 400 mg - Labs Labs: 05/14/17 14:35 05/14/17 14:35 PT 13.7 SECONDS (9.7-12.2) H 05/14/17 14:35 INR 1.2 05/14/17 14:35 APTT 29 SECONDS (21-34) 05/14/17 14:35 - Head Exam Head Exam: ATRAUMATIC - Eye Exam Eye Exam: Normal appearance - ENT Exam ENT Exam: Mucous Membranes Dry - Respiratory Exam Respiratory Exam: Decreased Breath Sounds - Cardiovascular Exam Cardiovascular Exam: +S1, +S2 - GI/Abdominal Exam GI & Abdominal Exam: Normal Bowel Sounds - Extremities Exam Extremities Exam: Pedal Edema Assessment and Plan (1) Anemia Assessment & Plan: anemia of HIV, chronic disease, renal disease transfusion support PRN Status: Acute (2) Thrombocytopenia Assessment & Plan: sepsis related Status: Acute (3) Coagulopathy Assessment & Plan: nutritional repeat fibrinogen Status: Acute
--- NOTE | 2017-05-14 18:07 | CP.PCM.PN ---
Subjective - Date & Time of Evaluation Date of Evaluation: 05/14/17 Time of Evaluation: 15:00 - Subjective Subjective: lethargic Objective - Vital Signs/Intake and Output Vital Signs (last 24 hours): Temp Pulse Resp BP Pulse Ox 97.4 F L 67 20 123/33 L 96 05/14/17 15:20 05/14/17 15:20 05/14/17 15:20 05/14/17 17:40 05/14/17 15:20 Intake and Output: 05/14/17 05/14/17 06:59 18:59 Intake Total 880 706 Output Total 700 350 Balance 180 356 - Medications Medications: Current Medications Abacavir Sulfate (Ziagen) 300 mg PO BID [facility] Last Admin: 05/14/17 10:03 Dose: 300 mg Acetaminophen (Tylenol 650 Mg Supp) 650 mg [place] Q6 PRN PRN Reason: Temperature > 100.4 F Linezolid (Zyvox 600mg/300ml D5w) 600 mg in 300 mls @ 200 mls/hr IVPB Q12H [facility] Last Admin: 05/14/17 11:55 Dose: 200 mls/hr Fluconazole (Diflucan Iv 100 Mg/50 Ml Ns) 50 mls @ 100 mls/hr IVPB Q24H [facility] Last Admin: 05/14/17 12:08 Dose: 100 mls/hr Dextrose/Sodium Chloride (Dextrose 5%/0.45% Ns 1000 Ml) 1,000 mls @ 80 mls/hr IV .[id number] [facility] Last Admin: 05/09/17 03:30 Dose: Not Given Fat Emulsion Intravenous (Intralipid 20%) 250 mls @ 42 mls/hr IV QOD@1800 [facility] Last Admin: 05/12/17 18:54 Dose: 42 mls/hr Chromium/Copper/Manganese/Zinc 1 ml/ Multivitamins/Vitamin C 10 ml/ Amino Acids 1,011 mls @ 60 mls/hr IV .[id number] [facility] Stop: 05/15/17 10:50 Chromium/Copper/Manganese/Zinc (1 ml/ Amino Acids) 1,001 mls @ 60 mls/hr IV .[id number] [facility] Stop: 05/15/17 17:59 Insulin Human Regular (Novolin R) 0 unit SC ACHS [facility] PRN Reason: Protocol Last Admin: 05/14/17 17:19 Dose: Not Given Lamivudine (Epivir) 50 mg PO DAILY [facility] Last Admin: 05/14/17 10:03 Dose: 50 mg Methylprednisolone (Solu-Medrol) 40 mg IVP Q6 [facility] Last Admin: 05/14/17 11:55 Dose: 40 mg Raltegravir (Isentress) 400 mg PO BID [facility] Last Admin: 05/14/17 10:03 Dose: 400 mg - Labs Labs: 05/14/17 14:35 05/14/17 14:35 PT 13.7 SECONDS (9.7-12.2) H 05/14/17 14:35 INR 1.2 05/14/17 14:35 APTT 29 SECONDS (21-34) 05/14/17 14:35 - Head Exam Head Exam: ATRAUMATIC - Eye Exam Eye Exam: Normal appearance - ENT Exam ENT Exam: Mucous Membranes Dry - Respiratory Exam Respiratory Exam: Decreased Breath Sounds - Cardiovascular Exam Cardiovascular Exam: +S1, +S2 - GI/Abdominal Exam GI & Abdominal Exam: Normal Bowel Sounds - Extremities Exam Extremities Exam: Pedal Edema Assessment and Plan (1) Anemia Assessment & Plan: anemia of HIV, chronic disease, renal disease transfusion support PRN Status: Acute (2) Thrombocytopenia Assessment & Plan: sepsis related DIC; fibrinogen town trending Status: Acute (3) Coagulopathy Assessment & Plan: nutritional and DIC Status: Acute
[2017-05-14] MEDS: PPN#5 IV SCH ×2 (19:00→22:06)
[2017-05-14] MEDS: Fat Emulsion 20% IV 250 ML IV SCH (19:33)
[2017-05-14] MEDS: Magnesium Sulfate 1 gm in D5W 1 GM/100 ML BAG IVPB SCH ×2 (19:39→21:20)
[2017-05-15] MEDS ORDERED: Potassium Chloride 20 mEq/15 ml LIQ UD PO ONE (00:03)
[2017-05-15] MEDS: MethylPREDNISolone 40 mg Vial IVP SCH ×4 (00:17→19:09)
[2017-05-15] MEDS: Magnesium Sulfate 1 gm in D5W 1 GM/100 ML BAG IVPB SCH (00:22)
[2017-05-15] MEDS: Fat Emulsion 20% IV 250 ML IV SCH (03:12)
[2017-05-15] MEDS ORDERED: PPN#6 IV SCH (10:51)
[2017-05-15] MEDS: Linezolid 600 mg in D5W 300 ml 600 MG/300 ML BAG IVPB SCH ×2 (11:02→23:15)
[2017-05-15] MEDS: (Novolin R) Insulin Human Regular 100 units/ml vial SC SCH ×3 (11:03→17:04)
[2017-05-15] MEDS: LamiVUDine 10 mg/ml Syringe PO SCH (11:11)
[2017-05-15] MEDS: Fluconazole IV 100mg/50 ml NS 50 ML IVPB SCH (12:25)
--- NOTE | 2017-05-15 16:40 | CP.PCM.PN ---
Subjective - Date & Time of Evaluation Date of Evaluation: 05/15/17 Time of Evaluation: 10:00 - Subjective Subjective: Dr. Stanley note: Patient is seen and examined in room. Patient is a little lethargic but is answering questions apporpriatly. I have asked him about hospice care and discussed different treatment options and he said he is still trying to think about a decision if he still wants hospice and as to whether he wants to continue with dialysis. Objective - Vital Signs/Intake and Output Vital Signs (last 24 hours): Temp Pulse Resp BP Pulse Ox 97.2 F L 66 20 133/67 96 05/15/17 07:30 05/15/17 07:30 05/15/17 07:30 05/15/17 07:30 05/15/17 07:30 Intake and Output: 05/15/17 05/15/17 06:59 18:59 Intake Total 360 Output Total 500 Balance -140 - Medications Medications: Current Medications Abacavir Sulfate (Ziagen) 300 mg PO BID [facility] Last Admin: 05/15/17 11:01 Dose: 300 mg Acetaminophen (Tylenol 650 Mg Supp) 650 mg [place] Q6 PRN PRN Reason: Temperature > 100.4 F Linezolid (Zyvox 600mg/300ml D5w) 600 mg in 300 mls @ 200 mls/hr IVPB Q12H [facility] Last Admin: 05/15/17 11:02 Dose: Not Given Fluconazole (Diflucan Iv 100 Mg/50 Ml Ns) 50 mls @ 100 mls/hr IVPB Q24H [facility] Last Admin: 05/15/17 12:25 Dose: Not Given Dextrose/Sodium Chloride (Dextrose 5%/0.45% Ns 1000 Ml) 1,000 mls @ 80 mls/hr IV .[id number] [facility] Last Admin: 05/09/17 03:30 Dose: Not Given Fat Emulsion Intravenous (Intralipid 20%) 250 mls @ 42 mls/hr IV QOD@1800 [facility] Last Admin: 05/15/17 03:12 Dose: 42 mls/hr Chromium/Copper/Manganese/Zinc (1 ml/ Amino Acids) 1,001 mls @ 60 mls/hr IV .[id number] [facility] Stop: 05/15/17 17:59 Last Admin: 05/15/17 11:03 Dose: Not Given Chromium/Copper/Manganese/Zinc 1 ml/ Multivitamins/Vitamin C 10 ml/ Amino Acids 1,011 mls @ 60 mls/hr IV .[id number] [facility] Stop: 05/16/17 10:51 Chromium/Copper/Manganese/Zinc (1 ml/ Amino Acids) 1,001 mls @ 60 mls/hr IV .[id number] [facility] Stop: 05/16/17 18:00 Insulin Human Regular (Novolin R) 0 unit SC ACHS [facility] PRN Reason: Protocol Last Admin: 05/15/17 12:26 Dose: Not Given Lamivudine (Epivir) 50 mg PO DAILY [facility] Last Admin: 05/15/17 11:11 Dose: 50 mg Methylprednisolone (Solu-Medrol) 40 mg IVP Q6 [facility] Last Admin: 05/15/17 11:12 Dose: Not Given Raltegravir (Isentress) 400 mg PO BID [facility] Last Admin: 05/15/17 11:03 Dose: 400 mg - Labs Labs: 05/14/17 14:35 05/14/17 14:35 PT 13.7 SECONDS (9.7-12.2) H 05/14/17 14:35 INR 1.2 05/14/17 14:35 APTT 29 SECONDS (21-34) 05/14/17 14:35 - Constitutional Appears: Unkempt - Eye Exam Eye Exam: Normal appearance Pupil Exam: NORMAL ACCOMODATION - Respiratory Exam Respiratory Exam: Rales. absent: Decreased Breath Sounds, Clear to Ausculation Bilateral, Rhonchi, Wheezes - Cardiovascular Exam Cardiovascular Exam: REGULAR RHYTHM, RRR, +S1, +S2. absent: Gallop, Rubs - GI/Abdominal Exam GI & Abdominal Exam: Soft, Normal Bowel Sounds. absent: Tenderness - Extremities Exam Extremities Exam: Pedal Edema. absent: Normal Inspection - Back Exam Back Exam: NORMAL INSPECTION - Psychiatric Exam Psychiatric exam: Normal Affect, Normal Mood Assessment and Plan - Assessment and Plan (Free Text) Assessment: Sepsis-Bacteremia 05/15: continue with current IV antibiotics blood cultures drawn yesterday are negative. 05/14: Repeat blood culture showed gram positive with clusters, could be contamination or could be from his permacath lines, follow up sensitivity. 05/13: On Linezolid/Meropenem broad spectrum antibiotics Admit to tele Criteria no longer met, but on admission (Temp, Tachy, WBC) Secondary to pneumonia or UTI Blood culture (05/03/17): Gram positive cocci- VRE x 1 (anaerobic positive only) ; no growth x 1 (aerobic bottle) Positive UA Urine Cx: Yeast Dr. La, help appreciated Contact Isolation for VRE Merrem 500mg IV Q8H [facility] Vancomycin ONCE Diflucan 100mg IV Q24H Zyvox 600mg IV Q12H Tylenol 650mg [place] Q6H PRN Pneumonia; Resolving 05/15: Fluid overloaded, Day 13 of IV antibiotics 05/14: Day 12 of IV antibiotics. CXR (05/03/17): Patchy b/l mid to lower lobe infiltrates. Cardiomegaly. (see full report) Dr. La, help appreciated - Repeat CXR (05/10/17) Stable CXR with borderline pulm vascular derangement and right pleural effusion as well as limited bilateral airspace disease appreciated once again (see full report) Could be the source of his bacteremia, will continue with IV antibiotics and bipap for support, patient is DNR/DNI Merrem 500mg IV Q8H [facility] -Vancomycin ONCE Zyvox 600mg IV Q12H Solumedrol 40mg IV Q6H Duoneb Q6H [facility] Bipap PRN Patient is still short of breath even with BiPap; patient does not feel that it will get better and was requesting even less aggressive measures to remain "comfortable". Spoke to sister and she states "whatever Kj wants". I believe that patient is a good fit for hospice; patient agrees. Will have hospice nurse come and evaluate patient formally. Renal Failure 05/15: Will need permac cath replacement tomorrow, hospice decision is still pending. 05/14: dialysis today Dr. Domínguez, help appreciated 05/13; patient for dialysis tomorrow 05/10: Pt will be on T-Th-Sat schedule for dialysis UTI; resolving Dr. La, help appreciated - Fluconazole HISTORY OF CANCER 05/15: Per patient's family he has a history of Lung cancer 05/14: PSA pending 05/13: PSA never drawn, along with other labs ordered for 05/10; ordered stat for today 05/09: Have decided to do a PSA for tomorrow's labs. CHF, ejection fraction preserved; diastolic chronic 05/15: Started Lasix 20mg IVP, fluid overloaded, with pitting edma and rhales on physical exam. ECHO (02/26/17): EF 62%, mild tricuspid regurgitation, moderate pulm HTN, Mitral annular calcification, Right atrium dilated, Left atrium borderline dilated Hold home lasix BNP 24,000 on admission Anemia;chronic and stable 05/15: stable, in the 8s. hovering around 9 HIV;chronic 05/10: HIV medications restarted. Pt on home Truvada 200/300mg, Raltegravir 400mg PO BID, Bactrim DS Type Two Diabetes Mellitus - Chronic 05/10: Started PPN. Will continue with accuchecks. Sugars poorly controlled RISS COPD -Chronic 05/07: continue current supportive treatment patient is DNR/DNI Secondary to pneumonia, history of COPD Solumedrol 40mg IV Q6H Duoneb Q6H [facility] Bipap PRN Sacral Ulcer 05/07: wound care, help appreciated, turn patient q2H Wound care, consulted, help appreciated - f/u reccs History of BPH Tamsulosin 0.4mg PO daily End of Life Goals 05/15: Hospice decision is still pending, will hopefully get an answer for tomorrow. on full liquid diet. 05/14: patient is approved for hospice care, might discharge patient tomorrow back to [facility] with hospice care. 05/07: patient is still DNR/DNI, see POLST document in the chart 05/13: Patient is requesting hospice; hospice eval placed; appreciate recs All medical management per Dr. Stanley
[2017-05-15] MEDS: PPN#7 IV SCH (19:09)
[2017-05-16] MEDS: MethylPREDNISolone 40 mg Vial IVP SCH ×3 (01:44→12:00)
[2017-05-16] MEDS: Linezolid 600 mg in D5W 300 ml 600 MG/300 ML BAG IVPB SCH ×2 (01:44→12:00)
[2017-05-16] MEDS: (Novolin R) Insulin Human Regular 100 units/ml vial SC SCH ×2 (07:30→11:33)
[2017-05-16 08:05] VITALS: BP 121/62; PULSE 63; RESP 18; TEMP 97.5; O2SAT 93
--- NOTE | 2017-05-16 10:28 | CP.PCM.PN ---
Subjective - Date & Time of Evaluation Date of Evaluation: 05/16/17 Time of Evaluation: 10:25 - Subjective Subjective: events noted; hospice being considered generally more alert, lethargic now creatinine range around 2.4mg% pre-dialysis and still with some UO no overt fluid overload now can try stopping dialysis and monitor labs closely Objective - Vital Signs/Intake and Output Vital Signs (last 24 hours): Temp Pulse Resp BP Pulse Ox 97.5 F L 63 18 121/62 93 L 05/16/17 07:05 05/16/17 07:05 05/16/17 07:05 05/16/17 07:05 05/16/17 07:05 Intake and Output: 05/16/17 05/16/17 06:59 18:59 Output Total 100 Balance -100 - Medications Medications: Current Medications Abacavir Sulfate (Ziagen) 300 mg PO BID [facility] Last Admin: 05/15/17 19:09 Dose: 300 mg Acetaminophen (Tylenol 650 Mg Supp) 650 mg [place] Q6 PRN PRN Reason: Temperature > 100.4 F Furosemide (Lasix) 20 mg IVP DAILY [facility] Linezolid (Zyvox 600mg/300ml D5w) 600 mg in 300 mls @ 200 mls/hr IVPB Q12H [facility] Last Admin: 05/15/17 23:15 Dose: Not Given Fluconazole (Diflucan Iv 100 Mg/50 Ml Ns) 50 mls @ 100 mls/hr IVPB Q24H [facility] Last Admin: 05/15/17 12:25 Dose: Not Given Dextrose/Sodium Chloride (Dextrose 5%/0.45% Ns 1000 Ml) 1,000 mls @ 80 mls/hr IV .[id number] [facility] Last Admin: 05/09/17 03:30 Dose: Not Given Fat Emulsion Intravenous (Intralipid 20%) 250 mls @ 42 mls/hr IV QOD@1800 [facility] Last Admin: 05/15/17 03:12 Dose: 42 mls/hr Chromium/Copper/Manganese/Zinc 1 ml/ Multivitamins/Vitamin C 10 ml/ Amino Acids 1,011 mls @ 60 mls/hr IV .[id number] [facility] Stop: 05/16/17 10:51 Last Admin: 05/15/17 19:09 Dose: Not Given Chromium/Copper/Manganese/Zinc (1 ml/ Amino Acids) 1,001 mls @ 60 mls/hr IV .[id number] [facility] Stop: 05/16/17 18:00 Insulin Human Regular (Novolin R) 0 unit SC ACHS [facility] PRN Reason: Protocol Last Admin: 05/15/17 17:04 Dose: Not Given Lamivudine (Epivir) 50 mg PO DAILY [facility] Last Admin: 05/15/17 11:11 Dose: 50 mg Methylprednisolone (Solu-Medrol) 40 mg IVP Q6 [facility] Last Admin: 05/16/17 05:14 Dose: 40 mg Raltegravir (Isentress) 400 mg PO BID [facility] Last Admin: 05/15/17 11:03 Dose: 400 mg - Labs Labs: 05/14/17 14:35 05/14/17 14:35 PT 13.7 SECONDS (9.7-12.2) H 05/14/17 14:35 INR 1.2 05/14/17 14:35 APTT 29 SECONDS (21-34) 05/14/17 14:35 - Constitutional Appears: No Acute Distress, Chronically Ill - Head Exam Head Exam: ATRAUMATIC, NORMAL INSPECTION - Neck Exam Neck Exam: Normal Inspection. absent: Tenderness - Respiratory Exam Respiratory Exam: Decreased Breath Sounds, Clear to Ausculation Bilateral - Cardiovascular Exam Cardiovascular Exam: REGULAR RHYTHM, +S1 - GI/Abdominal Exam GI & Abdominal Exam: Soft. absent: Tenderness - Extremities Exam Extremities Exam: Pedal Edema. absent: Tenderness - Neurological Exam Neurological Exam: Altered, CN II-XII Intact - Skin Skin Exam: Dry, Warm Assessment and Plan (1) HIV (human immunodeficiency virus infection) Status: Acute (2) Altered mental state Status: Acute (3) SUZANNE (acute kidney injury) Status: Acute (4) VRE bacteremia Status: Acute - Assessment and Plan (Free Text) Plan: Hold dialysis daily chemistries
[2017-05-16] MEDS: PPN#7 IV SCH (11:00)
[2017-05-16] MEDS ORDERED: PPN#8 IV SCH (11:00)
[2017-05-16] MEDS: LamiVUDine 10 mg/ml Syringe PO SCH (11:00)
[2017-05-16] MEDS: Fluconazole IV 100mg/50 ml NS 50 ML IVPB SCH (13:11)
== END 2017-05-16 16:19 | disposition hospice, inpatient (51) | DRG 871 ==
LOC: C.ER 11:58 → C.9E 14:18 → C.6T 16:00 → C.5S 05-08 20:44
PROVIDERS: ADMIT Internal Medicine Pulmonary Disease; ATTEND Internal Medicine Pulmonary Disease
PROC: 5A09557 Assistance with Respiratory Ventilation, Greater than 96 Consecutive Hours, Continuous Positive Airway Pressure (ICD-10-PCS; 2017-05-03)
PROC: 02HV33Z Insertion of Infusion Device into Superior Vena Cava, Percutaneous Approach (ICD-10-PCS; 2017-05-08)
PROC: 0JPT3WZ Removal of Totally Implantable Vascular Access Device from Trunk Subcutaneous Tissue and Fascia, Percutaneous Approach (ICD-10-PCS; principal; 2017-05-08 23:15)
PROC: 5A1D70Z Performance of Urinary Filtration, Intermittent, Less than 6 Hours Per Day (ICD-10-PCS; 2017-05-09)
DX: A41.81 Sepsis due to Enterococcus (principal); J18.9 Pneumonia, unspecified organism; J96.00 Acute respiratory failure, unspecified whether with hypoxia or hypercapnia; N17.9 Acute kidney failure, unspecified; I13.2 Hypertensive heart and chronic kidney disease with heart failure and with stage 5 chronic kidney disease, or end stage renal disease; D61.818 Other pancytopenia; N18.6 End stage renal disease; D68.9 Coagulation defect, unspecified; C34.90 Malignant neoplasm of unspecified part of unspecified bronchus or lung; N39.0 Urinary tract infection, site not specified; J44.0 Chronic obstructive pulmonary disease with (acute) lower respiratory infection; E87.2 Acidosis; N13.9 Obstructive and reflux uropathy, unspecified; E11.22 Type 2 diabetes mellitus with diabetic chronic kidney disease; R65.20 Severe sepsis without septic shock; Z79.4 Long term (current) use of insulin; Z21 Asymptomatic human immunodeficiency virus [HIV] infection status; Z66 Do not resuscitate; E78.5 Hyperlipidemia, unspecified; I50.9 Heart failure, unspecified; Z99.2 Dependence on renal dialysis; I35.0 Nonrheumatic aortic (valve) stenosis; F17.210 Nicotine dependence, cigarettes, uncomplicated; E61.1 Iron deficiency; E87.6 Hypokalemia; G47.33 Obstructive sleep apnea (adult) (pediatric); E66.9 Obesity, unspecified; Z68.32 Body mass index [BMI] 32.0-32.9, adult; Z16.21 Resistance to vancomycin; N40.1 Benign prostatic hyperplasia with lower urinary tract symptoms